=== PATIENT | male | born 1945 | race Caucasian/White ===

== ENCOUNTER 2020-12-14 08:59 | Outpatient (RCR) | payer MEDICARE, SELFPAY | END 2020-12-15 08:00 | disposition home or self-care (01) | LOC: HO.WCC 08:59 | PROVIDERS: PCP Internal Medicine Medical Oncology; Visit Provider Surgery | DX: Z09 Encounter for follow-up examination after completed treatment for conditions other than malignant neoplasm (principal); L00-L99 Diseases of the skin and subcutaneous tissue; F17.290 Nicotine dependence, other tobacco product, uncomplicated; Z79.84 Long term (current) use of oral hypoglycemic drugs | CPT/HCPCS: 99212 ==

== ENCOUNTER 2021-02-13 08:41 | Day surgery (SDC) | payer MEDICARE, SELFPAY ==
[2021-02-07 10:40] VITALS: BMI 37.1
--- NOTE | 2021-02-10 12:33 | MHC.SHP ---
Pre-Procedural Eval Section A Date of Service: 02/10/21 The patient is an INPATIENT: No Changes since office visit: No Cold of Flu in the past 2 weeks, No New Medical Problems, No Changes in Medication and No Patient answered all questions The History & Physical has been completed within 30 days and I have reviewed it.: Yes Section B Chief Complaint: cataract Allergies: Allergies Allergy/AdvReac Type Severity Reaction Status Date / Time No Known Allergies Allergy Verified 02/07/21 10:46 Plan Diagnosis/Plan: Unchanged I have reviewed the history and physical and performed a pertinent physical examination on my patient. No changes have occurred unless specified.
--- NOTE | 2021-02-10 13:19 | P.CONAN_ITS ---
Documented by User: Francine Colunga NP 02/10/21 13:20 HPI - Anesthesia Eval Consult details Narrative: 75yo M for Right Cataract Extraction IOL Insertion PCP cleared No previous cataract on record PMFSH Active Problems Active Problems: All Active Problems (Updated 02/07/21 @ 10:42 by Elizabeth Camargo RN) Elevated prostate specific antigen [PSA] (Acute) Past Medical History Medical History Arthritis COVID-19 vaccine series completed Diabetes Elevated cholesterol Elevated prostate specific antigen [PSA] History of BPH HTN (hypertension) Surgical History Surgical History No significant past surgical history Social History Social History Are you a primary healthcare economics consultant to a significant other at home: No Do you presently have visiting nurse or other home services: No Patient Tobacco Use Status: Current everyday Tobacco user Tobacco use type: Cigar Use of substances other than those prescribed or required for medical reasons: No Have you been hit, kicked, punched, or otherwise hurt by someone within the past year? If so, by whom?: No Are you DNR?: No Advance Directives Information Provided: Yes (as noted above) Advance Directives on File: No Recently lost weight without trying: No Eating poorly because of decreased appetite: No Nutrition Risks: No Nutritional Risk Poor oral hygiene: No (upper full denture) Meds Allergies Allergy/AdvReac Type Severity Reaction Status Date / Time No Known Allergies Allergy Verified 02/07/21 10:46 Home Medications Medication Instructions Recorded Confirmed Last Taken Type amlodipine 10 mg tablet 10 mg PO DAILY 02/07/21 02/07/21 Unknown History aspirin 81 mg tablet,delayed 81 mg PO DAILY 02/07/21 02/07/21 Unknown History release atorvastatin 10 mg tablet 10 mg PO BEDTIME 02/07/21 02/07/21 Unknown History glipizide 10 mg tablet 10 mg PO BID 02/07/21 02/07/21 Unknown History lisinopril 40 mg tablet 40 mg PO DAILY 02/07/21 02/07/21 Unknown History metoprolol tartrate 100 mg tablet 100 mg PO BID 02/07/21 02/07/21 Unknown History Exam Exam Date and Time: February 10, 2021 1319 Height,Weight and Vital Signs: Height 5 ft 10 in Weight 117.48 kg Assessment and Plan Assessment Anesthesia Assessment: Chart Reviewed Documented by User: Julianna Porras MD 02/13/21 10:56 PMFSH Active Problems Active Problems: All Active Problems (Updated 02/07/21 @ 10:42 by Elizabeth Camargo RN) Elevated prostate specific antigen [PSA] (Acute) Increased BMI Past Medical History Medical History Arthritis COVID-19 vaccine series completed Diabetes Elevated cholesterol Elevated prostate specific antigen [PSA] History of BPH HTN (hypertension) Family History Family history of problems with anesthesia: No Surgical History Surgical History No significant past surgical history History of Problems with Anesthesia: No Social History Social History Are you a primary healthcare economics consultant to a significant other at home: No Do you presently have visiting nurse or other home services: No Patient Tobacco Use Status: Current everyday Tobacco user Tobacco use type: Cigar Use of substances other than those prescribed or required for medical reasons: No Have you been hit, kicked, punched, or otherwise hurt by someone within the past year? If so, by whom?: No Are you DNR?: No Advance Directives Information Provided: Yes (as noted above) Advance Directives on File: No Recently lost weight without trying: No Eating poorly because of decreased appetite: No Nutrition Risks: No Nutritional Risk Poor oral hygiene: No (upper full denture) Meds Allergies Allergy/AdvReac Type Severity Reaction Status Date / Time No Known Allergies Allergy Verified 02/07/21 10:46 Home Medications Medication Instructions Recorded Confirmed Last Taken Type amlodipine 10 mg tablet 10 mg PO DAILY 02/07/21 02/07/21 Unknown History aspirin 81 mg tablet,delayed 81 mg PO DAILY 02/07/21 02/07/21 Unknown History release atorvastatin 10 mg tablet 10 mg PO BEDTIME 02/07/21 02/07/21 Unknown History glipizide 10 mg tablet 10 mg PO BID 02/07/21 02/07/21 Unknown History lisinopril 40 mg tablet 40 mg PO DAILY 02/07/21 02/07/21 Unknown History metoprolol tartrate 100 mg tablet 100 mg PO BID 02/07/21 02/07/21 Unknown History Exam Height,Weight and Vital Signs: Height 5 ft 10 in Weight 117.48 kg Vital Signs Temp Pulse Resp BP Pulse Ox 02/13/21 09:48 97.2 F 56 18 126/84 98 Pertinent Lab Results Pertinent Lab Results: Lab Results 02/13/21 Range/Units 09:48 POC Glucose 145 H (60-115) mg/dL Airway Mallampati Class: III TM Dist: >3cm Neck ROM: Full Denture: Upper and Lower Heart: RRR Lungs: Occasional wheeze Assessment and Plan Assessment Anesthesia Assessment: Anesthesia Plan Discussed Final Anesthetic Review Family History of Problems with Anesthesia: No History of Problems with Anesthesia: No NPO: Yes ASA Class: III Final Preanesthetic Review: No Changes in Pt Med Stat, Meds/Allgs Chart Rev iewed, Consent Obtained/Reviewed and Anes Risks/Benef Reviewed Patient Risk: Intermediate Procedure Risk: Low Assessment/Block/Sedation in SS: Assess/Block/Sedation-SS Anesthetic Plan Anesthetic Plan: MAC: Disposition: Standard PACU
[2021-02-13 09:48] VITALS: BP 126/84; PULSE 56; RESP 18; TEMP 36.2; O2SAT 98
[2021-02-13 09:52] LABS: Glucose, Whole Blood 145 mg/dL (60-115)
[2021-02-13] MEDS: Tetracaine HCl/PF 0.5% Oph Sol 4 ML DROPS 1 DROP EYE-RIGHT (09:55)
[2021-02-13] MEDS: Tropicamide 1 % Ophth Sol 3 ML BTL 1 DROP EYE-RIGHT ×3 (09:55→10:00)
[2021-02-13] MEDS: Phenylephrine HCL 2.5% Oph SoL 2 ML BOTTLE 1 DROP EYE-RIGHT ×3 (09:56→10:00)
--- NOTE | 2021-02-13 11:08 | HO.PNOPHT ---
Ophthalmology Procedure Procedure Date of Service: 02/13/21 Ophthalmology Viscoelastic: Healon Duet Dual Pack Pro Ophthalmology Lenses: TECNIS [id number] (22.5) Procedure Notes: PREOPERATIVE DIAGNOSIS: Decreased visual acuity right eye secondary to cataract POSTOPERATIVE DIAGNOSIS: Same PROCEDURE: Right cataract extraction with intraocular lens insertion SURGEON: Anthony Waggoner M.D. ANESTHESIA: Topical/MAC ESTIMATED BLOOD LOSS: None COMPLICATIONS: None After obtaining informed consent, the patient was brought to the operating room suite and placed in the supine position. After adequate sedation per anesthesia, topical drops of Tetracaine were given to the right eye. The eye was then prepped and draped in the usual sterile fashion. The operating room microscope was then positioned over the operative eye and a lid speculum placed. A paracentesis was created. Viscoelastic was then instilled into the anterior chamber. A three plane incision was then created temporally, utilizing a 2.85 mm keratome. Capsulotomy forceps were then utilized to create a circular tear capsulotomy. Hydrodissection and hydrodelineation were carried out until adequate mobilization of the nucleus occurred. Phacoemulsification was then utilized to remove the dense central nucleus followed by removal of the cortical material utilizing the automated aspiration irrigation unit. Viscoelastic was instilled into the posterior capsular bag followed by placement of a posterior chamber intraocular lens without difficulty. The residual Viscoelastic was then removed utilizing the automated IA machine. The wound was checked and found to be watertight. The patient tolerated the procedure well and the lid speculum was removed. Intracameral injection of Vigamox 0.1 mL followed by a subtenon injection of Kenalog-40 0.2 mL were administered. The patient will be seen in the a.m.
[2021-02-13 11:35] VITALS: BP 132/62; PULSE 54; RESP 16; TEMP 36.3; O2SAT 98
== END 2021-02-13 11:46 | disposition home or self-care (01) ==
PROVIDERS: PCP Internal Medicine Medical Oncology; Visit Provider Ophthalmology
PROC: (CPT 66985; principal; 2021-02-13 11:20)
DX: H25.11 Age-related nuclear cataract, right eye (principal); H53.8 Other visual disturbances; I10 Essential (primary) hypertension; E11.9 Type 2 diabetes mellitus without complications; Z79.84 Long term (current) use of oral hypoglycemic drugs; Z79.82 Long term (current) use of aspirin; Z79.899 Other long term (current) drug therapy; F17.290 Nicotine dependence, other tobacco product, uncomplicated
CPT/HCPCS: 66984; 82947; J2250; J3010; J3300; V2632

== ENCOUNTER 2021-03-20 05:59 | Outpatient (REF) | payer MEDICARE, SELFPAY ==
[2021-03-20 06:06] LABS: MANUAL DIFF FLAG NO
[2021-03-20 07:19] LABS: Basophils Percent Auto 0.4 % (0-2); Eosinophils Absolute Auto 0.5 X10*3/uL (0.0-0.4); Eosinophils Percent Auto 5.1 % (0-4); Hematocrit 41.5 % (42-52); Hemoglobin 13.6 g/dl (14.0-18.0); Imm Gran Abs Auto 0.05 X10*3/uL (0.00-0.03); Imm Gran Pct Auto 0.6 % (0.0-0.4); Lymphocytes Absolute Auto 1.4 X10*3/uL (1.2-4.9); Lymphocytes Percent Auto 15.7 % (20-40); Mean Corpuscular HGB Conc 32.8 g/dl (31.0-36.0); Mean Corpuscular Hemoglobin 30.2 pg (27.0-33.0); Mean Corpuscular Volume 92.2 fL (80-98); Mean Platelet Volume 10.7 fL (9.4-12.4); Monocytes Absolute Auto 0.8 X10*3/uL (0.1-1.2); Monocytes Percent Auto 9.1 % (2-11); Neutrophils Absolute Auto 6.2 X10*3/uL (2.0-8.3); Neutrophils Percent Auto 69.1 % (45-73); Platelet Count 246 X10*3/uL (160-400); Red Cell Distribution Width 15.2 % (11.0-16.0); White Blood Count 8.9 X10*3/uL (4.8-10.8)
[2021-03-20 07:47] LABS: Alanine Aminotransferase 11 U/L (0-40); Alkaline Phosphatase 82 U/L (39-117); Anion Gap 10 (12-20); Aspartate Amino Transferase 15 U/L (5-37); Bilirubin Total 0.4 mg/dL (0.0-1.0); Blood Urea Nitrogen 20 mg/dL (9-16); Carbon Dioxide 28 mmol/L (22-29); Chloride 105 mmol/L (96-108); Cholesterol 133 mg/dL; Estimated Glomerular Filt Rate > 60; Glucose Random 157 mg/dL (60-115); HDL Cholesterol 39 mg/dL; LDL Cholesterol Calculated 83 mg/dl; Potassium 4.4 mmol/L (3.3-5.1); Sodium 139 mmol/L (135-145); Total Protein 6.6 g/dL (6.5-8.0); Triglycerides 58 mg/dL
[2021-03-20 07:49] LABS: Estimated Average Glucose 169 mg/dL; Hemoglobin A1c % 7.5 %
[2021-03-20 08:21] LABS: Prostate Specific Antigen 13.47 ng/mL (<0.05-4.0)
== END 2021-03-20 06:00 | disposition home or self-care (01) ==
LOC: HO.LAB 05:59
PROVIDERS: PCP Internal Medicine Medical Oncology; Visit Provider Internal Medicine Medical Oncology
DX: Z12.5 Encounter for screening for malignant neoplasm of prostate (principal); I10 Essential (primary) hypertension; E11.9 Type 2 diabetes mellitus without complications; E78.5 Hyperlipidemia, unspecified; R35.1 Nocturia
CPT/HCPCS: 36415; 80053; 80061; 83036; 84153; 85025

== ENCOUNTER 2021-05-02 06:03 | Outpatient (REF) | payer MEDICARE, SELFPAY ==
[2021-05-02 08:44] LABS: Prostate Specific Antigen 14.95 ng/mL (<0.05-4.0)
== END 2021-05-02 06:04 | disposition home or self-care (01) ==
LOC: HO.LAB 06:03
PROVIDERS: PCP Internal Medicine Medical Oncology; Visit Provider Urology
DX: Z12.5 Encounter for screening for malignant neoplasm of prostate (principal); R97.20 Elevated prostate specific antigen [PSA]
CPT/HCPCS: 36415; 84153

== ENCOUNTER → 2021-05-12 11:41 | Outpatient (BNVA) | payer MEDICARE, SELFPAY | PROVIDERS: PCP Internal Medicine Medical Oncology; Visit Provider Urology | DX: N40.1 Benign prostatic hyperplasia with lower urinary tract symptoms (principal); N13.8 Other obstructive and reflux uropathy; R35.1 Nocturia; R97.20 Elevated prostate specific antigen [PSA] | CPT/HCPCS: 99212 ==

== ENCOUNTER 2021-06-08 16:56 | Inpatient (IN) | payer MEDICARE, SELFPAY ==
[2021-06-08] VITALS (10 sets, daily range): BP systolic 99–131; BP diastolic 40–80; PULSE 80–153; RESP 16–34; TEMP 36.9–38.6; O2SAT 93–95; BMI 31.1
--- NOTE | ~2021-06-08 | XR_ITS ---
EXAMINATION: PORTABLE CHEST 1 VIEW CLINICAL INFORMATION: OG tube placement . COMPARISON: 06/11/2019. TECHNIQUE: Portable frontal view of the chest was obtained. FINDINGS: Endotracheal tube tip approximately 5 cm both selene. Gastric tube tip and side-port overlying the left upper quadrant stomach. Small layering bilateral pleural effusions seen with bibasilar consolidation/atelectasis. No overt edema or pneumothorax. Cardiac silhouette within normal limits for size with vascular calcification in aorta. Degenerative changes in the spine. XR/XR chest 1V IMPRESSION: Tubes and lines as described. Small bilateral pleural effusions seen with associated basilar atelectasis similar to the prior study.
--- NOTE | ~2021-06-08 | XR_ITS ---
EXAMINATION: XR CHEST CLINICAL INFORMATION: Endotracheal tube and line placement COMPARISON: Chest x-ray 06/08/2021 TECHNIQUE: Frontal view of the chest was obtained. FINDINGS: Interval insertion of endotracheal tube which terminates approximately 6.3 cm above the level the selene. Left-sided jugular catheter is noted with tip terminating at the junction of the left brachiocephalic vein and SVC. The cardiac silhouette is mildly enlarged. Hypoinflated lungs. Interval worsening in left basilar airspace disease. No large pleural effusion identified. No pneumothorax. XR/XR chest 1V IMPRESSION: -Endotracheal tube in expected position. -Left-sided jugular catheter may require mild advancement. Clinical correlation recommended. -Interval worsening in left basilar airspace disease.
--- NOTE | ~2021-06-08 | IR_ITS ---
PROCEDURE: IR INSERTION OF TUNNEL CATHETER CLINICAL INFORMATION: Bacteremia. Needs long-term IV antibiotics. COMPARISON: None TECHNIQUE: Following explaining procedure, benefits and risks of a tunneled catheter to patient's spouse, a phone consent was obtained. Patient was placed supine on fluoroscopy table and preliminary ultrasound imaging was obtained. An optimal site was selected along the right anterolateral neck and marked. The marked site was cleaned and draped in the usual sterile manner. 1% lidocaine was inserted at puncture site. Under sterile ultrasound guidance, a single wall needle was advanced from the marked site and right jugular vein was punctured. After obtaining venous return a thin guidewire was advanced through the needle and placed in SVC and needle withdrawn. A 5-Moroccan dilator sheath was inserted over the guidewire and anchored to patient's drape with a hemostat. Approximately 1 gauze length anterior and lateral to the neck incision, 1% lidocaine was injected at the right anterior chest wall. A small skin incision was performed. 1% lidocaine with epinephrine was then injected subcutaneously from the right anterior chest wall incision to the right neck incision. A tunneler attached to a Plaza catheter was then tunneled blindly from the anterior neck chest wall incision to the neck incision and the tunneler was pulled making sure the catheter cuff was placed in the subcutaneous space. The catheter was sized to appropriate length. The 5-Moroccan dilator and the guidewire was removed and a long 0.035 J-wire was advanced and placed in IVC under fluoroscopy guidance. The tunneled Plaza catheter was then inserted through the peel-away sheath after removing the dilator and the guidewire. The peel-away sheath was removed as the catheter was held in position. Position of the catheter was then confirmed under fluoroscopy. 3-0 absorbable sutures were placed along the right anterior chest wall. The catheter was flushed with saline followed by heparin. A single image was obtained for documentation. All elements of maximal sterile barrier technique followed including use of cap, mask, sterile gown, sterile gloves, a sterile full body drape and hand hygiene. Also followed skin preparation with 2% chlorhexidine for cutaneous antisepsis, and sterile ultrasound preparation with sterile gel and probe cover when applicable. Conscious sedation with fentanyl and Versed was given during exam and patient monitored for 42 minutes. Patient was monitored by the IR nurse and the referring physician during the sedation time. Patient tolerated the procedure extremely well. FINDINGS: On initial ultrasound images, there is a widely patent jugular vein. Approximately 24 cm long tunneled Plaza catheter was placed in the SVC. There is significant backward flow of IVC blood; hence, contrast was injected to confirm the position of the catheter within the SVC which was confirmed. Backward high flow through the catheter is likely secondary to right ventricular failure or strain. This was communicated to the referring physician by phone, Dr. Noland. IR/IR cvc insert central tunnel IMPRESSION: Successful ultrasound and fluoroscopy-guided placement of a 24-cm long 5-Moroccan Plaza catheter. There is significant retrograde flow seen through the needle and catheter likely secondary to right heart failure or ventricular strain. Findings were communicated to Dr. Noland, the referring physician. Fluoroscopy Time: 2 minutes. Dose Area Product: [id number] cGy-cm2. Sedation Time: 42 minutes.
--- NOTE | ~2021-06-08 | CT_ITS ---
EXAMINATION: CT CHEST WITHOUT CONTRAST CLINICAL INFORMATION: Amiodarone toxicity. Hypoxia. COMPARISON: Previous chest x-rays most recent from yesterday TECHNIQUE: Multidetector volumetric CT imaging of the chest was done. Axial MIP volume rendering provided. Sagittal and coronal reformatted images were obtained. This CT examination was performed using dose optimization techniques as appropriate, variously including the following: *Automated exposure control *Adjustment of mA and/or kV according to patient size (this includes techniques or standardized protocols for targeted exams where dose is matched to indication/reason for exam; i.e. extremities or head) *Use of iterative reconstruction technique DLP: 3 2 mGy-cm FINDINGS: LUNGS: There is patchy bilateral diffuse airspace disease with air bronchograms. This is seen throughout the lungs. There may be some sparing of the lung periphery. There is denser atelectasis and consolidation in both lower lobes. Some of this may represent compressive atelectasis related to the adjacent bilateral pleural effusions MEDIASTINUM: The heart is enlarged. There is coronary artery and aortic valve calcification. There is no pericardial effusion. The thoracic aorta is normal in caliber. The visualized thyroid gland is unremarkable. There is a left subclavian line with tip projecting over the proximal SVC. PLEURA: There are moderate bilateral pleural effusions. AXILLA: No enlarged axillary lymph nodes or chest wall mass. UPPER ABDOMEN: 1.6 cm low-attenuation lesion in the lateral segment of the left lobe of the liver axial image 52 series 3. The spleen is small. The attenuation of the liver and spleen do not appear increased compared to the pancreas and kidneys left kidney. The right diaphragmatic for appears prominent. This area measures 2.5 x 3.5 cm for example axial image 62 series 3. It is uncertain whether this could be related to lymphadenopathy. OSSEOUS STRUCTURES: There are severe degenerative changes of the spine. CT/CT chest wo con IMPRESSION: Diffuse multilobar airspace disease. Moderate-sized bilateral pleural effusions. Chest CT appearance is nonspecific but would be compatible with amiodarone toxicity. Enlarged heart. Enlarged right diaphragmatic crura versus lymphadenopathy. Fleischner guidelines were followed.
--- NOTE | ~2021-06-08 | NM_ITS ---
EXAMINATION: NM LUNG IMAGE PERFUSION CLINICAL INFORMATION: A. fib/CHF. Dyspnea and generalized weakness. Rule out pulmonary embolism. COMPARISON: Previous chest x-ray from yesterday TECHNIQUE: Patient was administered 4 mCi of technetium 99m labeled MAA and perfusion imaging in the anterior, posterior, AYALA and LPO, and right lateral and left lateral projections were obtained. Additional SYRIAC and RPO images were not obtained due to difficulty with the equipment. FINDINGS: No segmental perfusion defect is seen. This is a low probability scan for pulmonary embolism. NM/NM pul perfusion IMPRESSION: Low probability scan for pulmonary embolism.
--- NOTE | ~2021-06-08 | XR_ITS ---
EXAMINATION: XR CHEST CLINICAL INFORMATION: Hemoptysis. COMPARISON: Chest x-ray 06/13/2021 TECHNIQUE: Frontal portable view of the chest was obtained. 4:56 PM FINDINGS: Tubes and lines: 1. Endotracheal tube catheter tip 5 cm above the selene. 2. Gastric catheter passes below diaphragm. Catheter tip is below lower margin of film. 3. Left IJ catheter tip in the superior vena cava origin at the midline superior mediastinum. There is persistent opacity both lung bases due to airspace disease/atelectasis and bilateral pleural effusions. No change since prior study 12/11/2021. XR/XR chest 1V IMPRESSION: Persistent bibasilar density due to consolidation/atelectasis and bilateral pleural effusions. No significant change since 06/13/2021.
--- NOTE | ~2021-06-08 | XR_ITS ---
EXAMINATION: XR CHEST CLINICAL INFORMATION: Post central line placement and intubation COMPARISON: Previous chest x-rays most recent 06/26/2021 TECHNIQUE: Frontal view of the chest was obtained. FINDINGS: There is a new endotracheal tube with tip 2.3 cm above the selene. There is a new nasogastric tube. This projects over the proximal stomach. The tip is not seen. There is a new left subclavian line with tip projecting over the SVC. The cardiac silhouette is enlarged. There is bilateral perihilar airspace disease and small bilateral pleural effusions. These findings are new or increased compared to previous exam. Differential would include CHF/pulmonary edema and pneumonia. There is no pneumothorax. There are degenerative changes of the spine. XR/XR chest 1V IMPRESSION: Endotracheal tube tip 2.3 cm above the selene. Left subclavian line tip projects over SVC. Nasogastric tube projects over the proximal stomach. The tip is not seen. No pneumothorax. Probable CHF. Differential would include new bilateral perihilar pneumonia.
--- NOTE | ~2021-06-08 | US_ITS ---
EXAMINATION: US RETROPERITONEAL LIMITED (RENAL ONLY) CLINICAL INFORMATION: Acute kidney insufficiency COMPARISON: None TECHNIQUE: Ultrasound of the kidneys was performed FINDINGS: RIGHT KIDNEY: 13.0 x 6.7 x 7.5 cm (SAG x AP x TRV). The kidney is normal in size, contour, and echogenicity. Renal cortical thickness is normal. No calculi . In the midpole of the right kidney there is a complex large 3.6 x 3.4 x 3.3 cm mass present with both cystic and solid areas. No hydronephrosis. LEFT KIDNEY: 14.1 x 6.9 x 7.0 cm (SAG x AP x TRV). The kidney is normal in size, contour, and echogenicity. Renal cortical thickness is normal. No calculi or focal parenchymal lesions. No hydronephrosis. US/US renal BI IMPRESSION: A cause for the patient's acute renal insufficiency has not been found. Incidental note made of a complex 3.6 cm right renal mass. Given the patient's renal failure, pre and postcontrast enhanced CT is probably not a consideration. Would recommend pre and postcontrast renal MRI for further evaluation. Newer gadolinium contrast agents are not associated with an increased risk of systemic nephrogenic fibrosis.
--- NOTE | ~2021-06-08 | XR_ITS ---
EXAMINATION: XR CHEST CLINICAL INFORMATION: Follow-up CHF COMPARISON: Previous chest x-ray 06/17/2020 TECHNIQUE: Frontal view of the chest was obtained. FINDINGS: The cardiac silhouette is enlarged stable. There is bilateral perihilar and left lower lobe airspace disease and small pleural effusions, left greater than right. This is similar to 06/17/2021. There is density in the left upper lobe probably related to left first rib costochondral cartilage. The lungs are otherwise clear. There are degenerative changes of the spine. XR/XR chest 1V IMPRESSION: Enlarged cardiac silhouette. Bilateral perihilar and left lower lobe airspace disease and small left pleural effusion left greater than right. Findings are again questionable for CHF. This is similar to 06/17/2021 exam.
--- NOTE | ~2021-06-08 | XR_ITS ---
EXAMINATION: XR CHEST CLINICAL INFORMATION: Respiratory failure. Rule out pulmonary edema. COMPARISON: Chest x-ray 06/29/2021. TECHNIQUE: Frontal view of the chest was obtained. FINDINGS: The endotracheal tube and enteric tube have been removed. There is no change in left subclavian central venous line. The heart size enlarged. Bilateral airspace opacities are stable. There is moderate spondylosis dorsal spine. No suspicion for pleural effusion or pneumothorax. XR/XR chest 1V IMPRESSION: Endotracheal tube and enteric tube have been removed. Bilateral patchy airspace opacities are stable and unchanged.
--- NOTE | ~2021-06-08 | XR_ITS ---
EXAMINATION: XR CHEST CLINICAL INFORMATION: Follow-up infiltrates COMPARISON: Previous chest x-ray most recent 07/02/2021 TECHNIQUE: Frontal view of the chest was obtained. FINDINGS: The cardiac silhouette is enlarged but stable. There is a left subclavian line with tip projecting over the SVC. There are bilateral infiltrates not appreciably changed from most recent exam 07/02/2021. There is blunting of the left lateral costophrenic angle questionable for a small left pleural effusion. There is no right pleural effusion. There is no pneumothorax. There are degenerative changes of the spine. XR/XR chest 1V IMPRESSION: Stable enlargement of the cardiac silhouette. No change in the bilateral infiltrates from 07/02/2021 exam. Question small left pleural effusion.
--- NOTE | ~2021-06-08 | XR_ITS ---
EXAMINATION: PORTABLE CHEST 1 VIEW CLINICAL INFORMATION: sob ?chf . COMPARISON: 05/02/2007. TECHNIQUE: Portable frontal view of the chest was obtained. FINDINGS: Lungs are mildly hypoexpanded. Increased markings at the bases reflecting a component of atelectasis although basilar infiltrate would be difficult to exclude. There is mild central vascular prominence but no overt edema with this appearance. Cardiac mediastinal silhouettes within normal limits for size for the technique. Degenerative changes in the spine and shoulders. XR/XR chest 1V IMPRESSION: Mildly hypoexpanded with basilar markings more likely reflecting a component of atelectasis. Infiltrates would be possible but less likely. No overt edema.
--- NOTE | ~2021-06-08 | IR_ITS ---
PROCEDURE: IR INSERTION OF TUNNEL CATHETER CLINICAL INFORMATION: Bacteremia. Needs long-term IV antibiotics. COMPARISON: None TECHNIQUE: Following explaining procedure, benefits and risks of a tunneled catheter to patient's spouse, a phone consent was obtained. Patient was placed supine on fluoroscopy table and preliminary ultrasound imaging was obtained. An optimal site was selected along the right anterolateral neck and marked. The marked site was cleaned and draped in the usual sterile manner. 1% lidocaine was inserted at puncture site. Under sterile ultrasound guidance, a single wall needle was advanced from the marked site and right jugular vein was punctured. After obtaining venous return a thin guidewire was advanced through the needle and placed in SVC and needle withdrawn. A 5-Nauruan dilator sheath was inserted over the guidewire and anchored to patient's drape with a hemostat. Approximately 1 gauze length anterior and lateral to the neck incision, 1% lidocaine was injected at the right anterior chest wall. A small skin incision was performed. 1% lidocaine with epinephrine was then injected subcutaneously from the right anterior chest wall incision to the right neck incision. A tunneler attached to a Plaza catheter was then tunneled blindly from the anterior neck chest wall incision to the neck incision and the tunneler was pulled making sure the catheter cuff was placed in the subcutaneous space. The catheter was sized to appropriate length. The 5-Nauruan dilator and the guidewire was removed and a long 0.035 J-wire was advanced and placed in IVC under fluoroscopy guidance. The tunneled Plaza catheter was then inserted through the peel-away sheath after removing the dilator and the guidewire. The peel-away sheath was removed as the catheter was held in position. Position of the catheter was then confirmed under fluoroscopy. 3-0 absorbable sutures were placed along the right anterior chest wall. The catheter was flushed with saline followed by heparin. A single image was obtained for documentation. All elements of maximal sterile barrier technique followed including use of cap, mask, sterile gown, sterile gloves, a sterile full body drape and hand hygiene. Also followed skin preparation with 2% chlorhexidine for cutaneous antisepsis, and sterile ultrasound preparation with sterile gel and probe cover when applicable. Conscious sedation with fentanyl and Versed was given during exam and patient monitored for 42 minutes. Patient was monitored by the IR nurse and the referring physician during the sedation time. Patient tolerated the procedure extremely well. FINDINGS: On initial ultrasound images, there is a widely patent jugular vein. Approximately 24 cm long tunneled Plaza catheter was placed in the SVC. There is significant backward flow of IVC blood; hence, contrast was injected to confirm the position of the catheter within the SVC which was confirmed. Backward high flow through the catheter is likely secondary to right ventricular failure or strain. This was communicated to the referring physician by phone, Dr. Noland. IR/IR us guide venous access IMPRESSION: Successful ultrasound and fluoroscopy-guided placement of a 24-cm long 5-Nauruan Plaza catheter. There is significant retrograde flow seen through the needle and catheter likely secondary to right heart failure or ventricular strain. Findings were communicated to Dr. Noland, the referring physician. Fluoroscopy Time: 2 minutes. Dose Area Product: [id number] cGy-cm2. Sedation Time: 42 minutes.
--- NOTE | 2021-06-08 17:17 | ECG_ITS ---
Test Reason : weakness/falls Blood Pressure : / mmHG Vent. Rate : 152 BPM Atrial Rate : 000 BPM P-R Int : 000 ms QRS Dur : 102 ms QT Int : 312 ms P-R-T Axes : 000 021 161 degrees QTc Int : 496 ms Atrial fibrillation with rapid ventricular response Nonspecific ST and T wave abnormality Abnormal ECG When compared with ECG of 04-MAY-2007 06:52, Atrial fibrillation has replaced Sinus rhythm Vent. rate has increased BY [address] now depressed in Anterolateral leads Nonspecific T wave abnormality now evident in Lateral leads Referred By: Generic ED Physician Electronically Signed By:NATALIIA ARAIZA MD
[2021-06-08 17:23] LABS: Glucose, Whole Blood 67 mg/dL (60-115)
--- NOTE | 2021-06-08 17:23 | PC.NURSE ---
given orange juice for POC 67. is alert. awaits a bed and triage.
--- NOTE | 2021-06-08 17:31 | ED_ITS ---
HPI - General Adult General Chief complaint: Dyspnea Stated complaint: INCREASE BODY ACHES, WEAKNESS, FALLS Time Seen by Provider: 06/08/21 17:16 Source: patient Mode of arrival: ambulatory Limitations: no limitations History of Present Illness HPI narrative: Patient with no history of atrial fibrillation/CHF comes to the ER for last 4 or 5 weeks of weakness exertional dyspnea feels no strength when he walks. Patient been vaccinated against COVID including a booster dose denies any cough or fever. Patient also does have chronic back pain no acute increase in the back problems no fall no headache Related Data Home Medications Medication Instructions Recorded Confirmed amlodipine 10 mg tablet 10 mg PO DAILY 02/07/21 06/08/21 aspirin 81 mg tablet,delayed 81 mg PO DAILY 02/07/21 06/08/21 release atorvastatin 10 mg tablet 10 mg PO BEDTIME 02/07/21 06/08/21 glipizide 10 mg tablet 10 mg PO BID 02/07/21 06/08/21 lisinopril 40 mg tablet 40 mg PO DAILY 02/07/21 06/08/21 metoprolol tartrate 100 mg tablet 100 mg PO BID 02/07/21 06/08/21 pioglitazone 30 mg tablet 1 tab PO DAILY 06/08/21 06/08/21 triamcinolone acetonide 0.1 % 1 applic TOPICAL BID-TID 06/08/21 06/08/21 topical cream Previous Rx's Medication Instructions Recorded tamsulosin 0.4 mg capsule 0.4 mg PO BEDTIME 90 Days #90 cap 04/10/21 finasteride 5 mg tablet 5 mg PO DAILY 90 Days #90 tab 05/12/21 Allergies Allergy/AdvReac Type Severity Reaction Status Date / Time No Known Allergies Allergy Verified 06/08/21 18:52 Review of Systems Review of Systems: Yes all other systems are reviewed and are negative PMFSH Past Medical History Medical History Arthritis COVID-19 vaccine series completed Diabetes Elevated cholesterol Elevated prostate specific antigen [PSA] History of BPH HTN (hypertension) Surgical History No significant past surgical history Social History Social History Are you a primary inspector health care facilities to a significant other at home: No Do you presently have visiting nurse or other home services: No Patient Tobacco Use Status: Current everyday Tobacco user Tobacco use type: Cigar Advance Directives: No Advance Directives Information Provided: No Physical Exam Vital Signs: Vital Signs: Last Vital Signs Temp 98.5 F 06/08/21 18:26 Pulse 143 H 06/08/21 21:06 Resp 18 06/08/21 21:06 BP 107/48 L 06/08/21 20:39 Pulse Ox 94 06/08/21 20:39 BMI result Body Mass Index 31.1 Appearance: Alert. Oriented X3. No acute distress. Eyes: No pallor or icterus ENT: Pharynx normal. Oral Mucosa moist Neck: Normal inspection. Neck supple. CVS: Irregularly irregular tachycardia no murmur or gallop Pulses normal. Respiratory: No respiratory distress. Equal air entry bilateral, bilateral wheezing occasional basal rales Abdomen: Soft and nontender. Bowel sounds are present, no mass palpable, no CVA tenderness Skin: Skin warm and dry. Normal skin color. Normal skin turgor. Extremities: No lower extremity edema. No calf tenderness Neuro: Oriented X 3. No motor deficit. No sensory deficit.No cerebellar signs , cranial nerves II-XII intact Medical Decision Making MDM Narrative Medical decision making narrative: Patient with significant abnormal labs show creatinine of 2.7 which is acutely increased from 03/23 clinically looks like prerenal, also patient has elevated D-dimer will give him Lovenox plan for V/Q scan in morning patient received IV Cardizem for new onset atrial fibrillation and responded to it heart rate at this time is between 100 and 110 will give him p.o. Cardizem plan to admit patient did not really come positive with COVID although received 3 doses of COVID vaccine no significant hypoxia notice Lab Data Lab results reviewed: Yes I reviewed the patient's lab results. Result diagrams: 06/08/21 18:09 06/08/21 18:09 Labs: Lab Results 06/08/21 06/08/21 06/08/21 Range/Units 17:17 18:09 18:09 WBC 19.8 H (4.8-10.8) X10*3/uL RBC 4.34 L (4.60-5.80) X10*6/uL Hgb 13.1 L (14.0-18.0) g/dl Hct 37.9 L (42.0-52.0) % MCV 87.3 (80.0-98.0) fL MCH 30.2 (27.0-33.0) pg MCHC 34.6 (31.0-36.0) g/dl RDW 15.0 (11.0-16.0) % Plt Count 265 (160-400) X10*3/uL MPV 10.6 (9.4-12.4) fL Immature Gran % (Auto) 2.0 H (0.0-0.4) % Neut % (Auto) 90.3 H (45-73) % Lymph % (Auto) 3.1 L (20-40) % [place] % (Auto) 4.2 (2-11) % Eos % (Auto) 0.2 (0-4) % Baso % (Auto) 0.2 (0-2) % Lymph # (Auto) 0.6 L (1.2-4.9) X10*3/uL [place] # (Auto) 0.8 (0.1-1.2) X10*3/uL Eos # (Auto) 0.0 (0.0-0.4) X10*3/uL Baso # (Auto) 0.0 (0.0-0.2) X10*3/uL Abs Immat Gran (auto) 0.40 H (0.00-0.03) X10*3/uL Absolute Neuts (auto) 17.9 H (2.0-8.3) x10*3/uL Absolute Nucleated RBC 0.000 (0.0-0.012) X10*3/uL Nucleated RBC % (auto) 0.0 (0.0-0.2) /100WBC Smear Tech's Comments VERIFIED PT 12.4 (9.9-13.0) SEC INR 1.1 (0.9-1.1) APTT 26.0 (24.1-38.0) SEC D-Dimer High Sensitivty 3214 NG/ML Sodium (135-145) mmol/L Potassium (3.3-5.1) mmol/L Chloride (96-108) mmol/L Carbon Dioxide (22-29) mmol/L Anion Gap (12-20) BUN (9-16) mg/dL Creatinine (0.5-1.4) mg/dL Estim Creat Clear Calc Estimated GFR POC Glucose 67 (60-115) mg/dL Random Glucose (60-115) mg/dL Calcium (8.4-10.2) mg/dL Magnesium (1.6-2.6) mg/dL Troponin I High Sens (<3.5-35.0) ng/L B-Natriuretic Peptide (<100) pg/mL COVID-19 ([facility]) (Negative) COVID-19 Clin Com 06/08/21 06/08/21 06/08/21 Range/Units 18:09 18:09 18:09 WBC (4.8-10.8) X10*3/uL RBC (4.60-5.80) X10*6/uL Hgb (14.0-18.0) g/dl Hct (42.0-52.0) % MCV (80.0-98.0) fL MCH (27.0-33.0) pg MCHC (31.0-36.0) g/dl RDW (11.0-16.0) % Plt Count (160-400) X10*3/uL MPV (9.4-12.4) fL Immature Gran % (Auto) (0.0-0.4) % Neut % (Auto) (45-73) % Lymph % (Auto) (20-40) % [place] % (Auto) (2-11) % Eos % (Auto) (0-4) % Baso % (Auto) (0-2) % Lymph # (Auto) (1.2-4.9) X10*3/uL [place] # (Auto) (0.1-1.2) X10*3/uL Eos # (Auto) (0.0-0.4) X10*3/uL Baso # (Auto) (0.0-0.2) X10*3/uL Abs Immat Gran (auto) (0.00-0.03) X10*3/uL Absolute Neuts (auto) (2.0-8.3) x10*3/uL Absolute Nucleated RBC (0.0-0.012) X10*3/uL Nucleated RBC % (auto) (0.0-0.2) /100WBC Smear Tech's Comments PT (9.9-13.0) SEC INR (0.9-1.1) APTT (24.1-38.0) SEC D-Dimer High Sensitivty NG/ML Sodium 130 L (135-145) mmol/L Potassium 4.2 (3.3-5.1) mmol/L Chloride 93 L (96-108) mmol/L Carbon Dioxide 21 L (22-29) mmol/L Anion Gap 20 (12-20) BUN 91 H (9-16) mg/dL Creatinine 2.76 H (0.5-1.4) mg/dL Estim Creat Clear Calc 28.8 Estimated GFR 23 POC Glucose (60-115) mg/dL Random Glucose 67 D (60-115) mg/dL Calcium 8.2 L D (8.4-10.2) mg/dL Magnesium 3.6 H* (1.6-2.6) mg/dL Troponin I High Sens 46.0 H (<3.5-35.0) ng/L B-Natriuretic Peptide 303 H (<100) pg/mL COVID-19 ([facility]) Positive A (Negative) COVID-19 Clin Com See Note ECG Data Attestation: I personally reviewed and interpreted this ECG as follows: Interpretation: Atrial fibrillation with heart rate 152 beats per minute non specific ST T wave changes no acute ischemia Critical Care Time Critical Care Time Critical Care Time: Yes Total Critical Care Time: 65 Attestation: I spent 65 minutes of critical care, with interventions, assessments, speaking to patient, consultants, and family. Discharge Plan Discharge Clinical Impression: Atrial fibrillation with rapid ventricular response, COVID-19, Weakness Acute renal failure Qualifiers: Acute renal failure type: unspecified Qualified Code(s): N17.9 - Acute kidney failure, unspecified Patient Disposition: Admitted As Inpatient
[2021-06-08] MEDS: dilTIAZem HCL 50 MG/10 ML VIAL 10 MG IVPUSH ×3 (18:11→23:28)
[2021-06-08 18:35] LABS: Basophils Percent Auto 0.2 % (0-2); Eosinophils Percent Auto 0.2 % (0-4); Hematocrit 37.9 % (42.0-52.0); Hemoglobin 13.1 g/dl (14.0-18.0); Lymphocytes Absolute Auto 0.6 X10*3/uL (1.2-4.9); Lymphocytes Percent Auto 3.1 % (20-40); MANUAL DIFF FLAG SCAN; Mean Corpuscular HGB Conc 34.6 g/dl (31.0-36.0); Mean Corpuscular Hemoglobin 30.2 pg (27.0-33.0); Mean Corpuscular Volume 87.3 fL (80.0-98.0); Mean Platelet Volume 10.6 fL (9.4-12.4); Monocytes Absolute Auto 0.8 X10*3/uL (0.1-1.2); Monocytes Percent Auto 4.2 % (2-11); Neutrophils Absolute Auto 17.9 x10*3/uL (2.0-8.3); Neutrophils Percent Auto 90.3 % (45-73); Platelet Count 265 X10*3/uL (160-400); Red Blood Count 4.34 X10*6/uL (4.60-5.80); SCAN SMEAR FLAG 1; White Blood Count 19.8 X10*3/uL (4.8-10.8)
[2021-06-08 18:54] LABS: INTERNATIONAL NORM RATIO 1.1 (0.9-1.1); Prothrombin Time 12.4 SEC (9.9-13.0)
[2021-06-08 18:55] LABS: B Type Natriuretic Peptide 303 pg/mL (<100)
[2021-06-08 19:18] LABS: COVID-19 Test Positive (Negative); IDNOW Serial# 9DD0AD1C
[2021-06-08 19:19] LABS: SLIDE REVIEW VERIFIED
[2021-06-08 19:30] LABS: Anion Gap 20 (12-20); Blood Urea Nitrogen 91 mg/dL (9-16); Calcium 8.2 mg/dL (8.4-10.2); Carbon Dioxide 21 mmol/L (22-29); Chloride 93 mmol/L (96-108); Creatinine Clr Calc Pharmacy 28.8; Estimated Glomerular Filt Rate 23; Glucose Random 67 mg/dL (60-115); Magnesium 3.6 mg/dL (1.6-2.6); Potassium 4.2 mmol/L (3.3-5.1); Sodium 130 mmol/L (135-145)
[2021-06-08] MEDS: Metoprolol Tartrate 5 MG/5 ML VIAL IVPUSH (19:30)
--- NOTE | 2021-06-08 19:31 | PC.NURSE ---
elder at bedside during reassessment of VS. pt 99/51, hr 140. per elder, hang 1L ns and give 5mg metoprolol.
--- NOTE | 2021-06-08 19:45 | PHA.MEDREC ---
Pharmacy Consult ? Medication Reconciliation Pharmacy has completed the medication reconciliation.
[2021-06-08] MEDS: 0.9 % Sodium Chloride 1,000 ML 999 ML IV (20:07)
[2021-06-08] MEDS: dilTIAZem HCL 30 MG TABLET 120 MG PO (20:39)
[2021-06-08 20:48] LABS: D Dimer High Sensitivity 3214 NG/ML
[2021-06-08] MEDS: Albuterol/Iprat 2.5/0.5MG 3 ML AMPUL.NEB INHALE (21:04)
--- NOTE | 2021-06-08 21:40 | PC.NURSE ---
awaiting lovenox from pharmacy
[2021-06-08] MEDS: Enoxaparin Sodium 120 MG/0.8 ML SYRINGE 110 MG SUBCUT (22:31)
--- NOTE | 2021-06-08 23:06 | P.HPHOSP_ITS ---
History of Present Illness Date of Service: 06/08/21 Chief Complaint: Gen Weakness 76-year-old male with a past medical history of hypertension, hyperlipidemia, diabetes, BPH, arthritis presented the hospital today with a chief complaint of generalized weakness. Patient reports that for the past few weeks he has been having generalized weakness, not feeling well; complains of shortness of breath and dyspnea on exertion; mentions that his symptoms have been gradually worsening; reports that he has no good appetite and has been not eating in good enough; denies any falls or trauma. Denies any chest pain palpitations lightheadedness dizziness. Complains of cough but no sputum production. Denies any numbness tingling or focal weakness. Reports he has been weak in his legs; Denies any back pain. Patient reports that been vaccinated including a booster dose. Review of all other systems is negative except mentioned above ER course: Per ER team patient on presentation noted to be saturating 94%; blood pressure 107/48; bilateral rales and wheezing noted-received DuoNeb; noted to have new onset AFib with rapid ventricular response-given diltiazem 120 p.o., diltiazem IV push x2, metoprolol IV push x1; patient still continued to be having tachycardia with heart rate in 140s; COVID-19 positive; chest x-ray showed infiltrates-troponins indeterminate; on labs also noted to have elevated renal function to 2.7 creatinine from baseline of 1.1. Patient received 1 L of normal saline IV fluids. Admitted for further management. [facility] Medical History (Updated 06/10/21 @ 10:40 by Shivani Priest MD) Arthritis Bacteremia due to Gram-positive bacteria COVID-19 vaccine series completed Diabetes Elevated cholesterol Elevated prostate specific antigen [PSA] History of BPH HTN (hypertension) Pertinent family history: reviewed Surgical History No significant past surgical history Social History Household Members: Spouse Housing: Apartment Are you a primary healthcare network consultant to a significant other at home: No Do you presently have visiting nurse or other home services: No Alcohol intake: current Alcohol intake frequency: a few times a month Patient Tobacco Use Status: Former Tobacco user Tobacco use type: Cigar service: No Current occupational status: retired [employer] Allergies Allergy/AdvReac Type Severity Reaction Status Date / Time No Known Allergies Allergy Verified 06/08/21 18:52 Active Medications: Current Medications Aspirin (Aspirin Enteric Coated 81 Mg Tablet.Dr) 81 mg PO DAILY [facility] Atorvastatin Calcium (Atorvastatin Calcium 10 Mg Tablet) 10 mg PO BEDTIME [facility] Dexamethasone Sodium Phosphate (Dexamethasone Sod Phosphate 4 Mg/Ml Vial) 6 mg IVPUSH DAILY [facility] Dextrose (Dextrose 50 % 25 Gm/50 Ml Vial) 25 gm IVPUSH Q15M PRN; Protocol PRN Reason: per Hypoglycemia Standing Ord. Enoxaparin Sodium (Enoxaparin Sodium 60 Mg/0.6 Ml Syringe) 105 mg 1 mg/kg (105 mg) SUBCUT Q12H [facility] Finasteride (Finasteride 5 Mg Tablet) 5 mg PO DAILY [facility] Glucose (Glucose Gel 15 Gm Gel..Gram.) 15 gm PO Q15M PRN; Protocol PRN Reason: per Hypoglycemia Standing Ord. Diltiazem HCl 125 mg/ Sodium (Chloride) 125 mls @ 0 mls/hr IVCONT .Q0M [facility]; Protocol Sodium Chloride (Ns) 500 mls @ 250 mls/hr IV .Q2H [facility] Stop: 06/09/21 00:49 Diltiazem HCl 125 mg/ Sodium (Chloride) 125 mls @ 0 mls/hr IVCONT .Q0M [facility]; Protocol Ceftriaxone Sodium 1 gm/ (Sodium Chloride) 50 mls @ 100 mls/hr IV Q24H [facility] Azithromycin 500 mg/ Sodium (Chloride) 250 mls @ 125 mls/hr IV Q24H [facility] Insulin Glargine (Insulin Glargine,Hum.Rec.Anlog 100 Unit/Ml 10 Ml Vial) 10 unit SUBCUT BEDTIME [facility] Insulin Human Lispro (Insulin Lispro 100 Unit/Ml 3 Ml Vial) 0 unit SUBCUT QIDACHS [facility]; Protocol Pharmacy Consult (Consult Rx Perform Med Rec) 1 each MISCELLANE ONCE PRN PRN Reason: Consult order Sodium Chloride (0.9 % Sodium Chloride Flush 3 Ml Syringe) 3 ml IVFLUSH QSHIFT [facility] Tamsulosin HCl (Tamsulosin Hcl 0.4 Mg Capsule) 0.4 mg PO BEDTIME [facility] Home Medications Medication Instructions Recorded Confirmed Last Taken Type amlodipine 10 mg tablet 10 mg PO DAILY 02/07/21 06/08/21 06/08/21 History aspirin 81 mg tablet,delayed 81 mg PO DAILY 02/07/21 06/08/21 06/08/21 History release atorvastatin 10 mg tablet 10 mg PO BEDTIME 02/07/21 06/08/21 06/08/21 History glipizide 10 mg tablet 10 mg PO BID 02/07/21 06/08/21 06/08/21 History lisinopril 40 mg tablet 40 mg PO DAILY 02/07/21 06/08/21 06/08/21 History metoprolol tartrate 100 mg tablet 100 mg PO BID 02/07/21 06/08/21 06/08/21 History pioglitazone 30 mg tablet 1 tab PO DAILY 06/08/21 06/08/21 06/08/21 History triamcinolone acetonide 0.1 % 1 applic TOPICAL BID-TID 06/08/21 06/08/21 Unknown History topical cream Physical Exam Vital Signs and Narrative: Vital Signs: Last Vital Signs Temp 101.5 F H 06/08/21 22:46 Pulse 142 H 06/08/21 22:46 Resp 34 H 06/08/21 22:46 BP 110/54 L 06/08/21 22:46 Pulse Ox 94 06/08/21 22:46 BMI result Body Mass Index 31.1 Results Labs CBC and Chem 7: 06/11/21 01:01 06/10/21 13:27 Labs: Laboratory Results - last 24 hr 06/08/21 06/08/21 06/08/21 17:17 18:09 18:09 MCV 87.3 MCH 30.2 MCHC 34.6 RDW 15.0 Plt Count 265 MPV 10.6 Immature Gran % (Auto) 2.0 H Neut % (Auto) 90.3 H Lymph % (Auto) 3.1 L Kidder % (Auto) 4.2 Eos % (Auto) 0.2 Baso % (Auto) 0.2 Lymph # (Auto) 0.6 L Kidder # (Auto) 0.8 Eos # (Auto) 0.0 Baso # (Auto) 0.0 Abs Immat Gran (auto) 0.40 H Absolute Neuts (auto) 17.9 H Absolute Nucleated RBC 0.000 Nucleated RBC % (auto) 0.0 Smear Tech's Comments VERIFIED PT 12.4 INR 1.1 APTT 26.0 D-Dimer High Sensitivty 3214 Anion Gap Estim Creat Clear Calc Estimated GFR POC Glucose 67 Random Glucose Calcium Magnesium Troponin I High Sens B-Natriuretic Peptide COVID-19 ([facility]) COVID-19 Clin Com 06/08/21 06/08/21 06/08/21 18:09 18:09 18:09 MCV MCH MCHC RDW Plt Count MPV Immature Gran % (Auto) Neut % (Auto) Lymph % (Auto) Kidder % (Auto) Eos % (Auto) Baso % (Auto) Lymph # (Auto) Kidder # (Auto) Eos # (Auto) Baso # (Auto) Abs Immat Gran (auto) Absolute Neuts (auto) Absolute Nucleated RBC Nucleated RBC % (auto) Smear Tech's Comments PT INR APTT D-Dimer High Sensitivty Anion Gap 20 Estim Creat Clear Calc 28.8 Estimated GFR 23 POC Glucose Random Glucose 67 D Calcium 8.2 L D Magnesium 3.6 H* Troponin I High Sens 46.0 H B-Natriuretic Peptide 303 H COVID-19 (JOSE ALBERTO) Positive A COVID-19 Clin Com See Note Imaging Radiologist's Impressions: Impressions Chest X-Ray 06/08/21 18:24 IMPRESSION: Mildly hypoexpanded with basilar markings more likely reflecting a component of atelectasis. Infiltrates would be possible but less likely. No overt edema. Assessment and Plan (1) Atrial fibrillation with rapid ventricular response: Status: Acute (2) Acute renal failure: Qualifiers: Acute renal failure type: unspecified Qualified Code(s): N17.9 - Acute kidney failure, unspecified Status: Acute (3) COVID-19: Status: Acute (4) Weakness: Status: Acute 76-year-old male with a past medical history of hypertension, hyperlipidemia, diabetes, BPH, arthritis presented the hospital today with a chief complaint of generalized weakness. Noted to have following conditions COVID-19 pneumonia: Patient empirically started on ceftriaxone, azithromycin, Decadron. Id consult for further recommendations. Supplemental oxygen p.r.n. Patient has been vaccinated in the past including booster dose. AFib with rapid ventricular response: New onset. Patient initially received IV diltiazem push x2, metoprolol IV push x1, p.o. diltiazem 120; Patient heart rate continued to be in 140s--> started on diltiazem drip. Patient's blood pressure on the soft side-will hold home antihypertensives. Monitor blood pressure closely while on the diltiazem drip and adjust accordingly. Echocardiogram TSH Cardiology consult Elevated troponins: Likely in the setting of demand/reduced clearance. Patient denies any chest pain. Nonischemic EKG. Elevated D-dimer: Multifactorial. Patient empirically started on Lovenox at therapeutic dose. Unable to do CT chest given renal insufficiency. ROBIN: Likely prerenal. Gentle IV fluids. Villa catheter for I's and O's. Hypermagnesemia: Likely contributing to his bilateral leg weakness; grossly nonfocal neurologically. Elevated my initial levels likely in the setting of renal insufficiency. Will continue to monitor. Fall precautions. PT/OT eventually. Diabetes: Hold home oral hypoglycemic agents. Start with Lantus 10 units at bedtime and insulin sliding scale. Monitor fingerstick glucose. Hypertension: Held home antihypertensives given soft blood pressure as mentioned above. History of BPH: Continue home finasteride, tamsulosin. Hyperlipidemia: Continue home statin DVT prophylaxis: Patient on Lovenox Code status: Full code Quality Stroke Does the patient have a stroke diagnosis?: No VTE Prior VTE?: No VTE Risk Level:: Medical - moderate - high VTE Device Contraindication: Treatment Not Indicated VTE Drug Contraindication: Treatment Not Indicated
[2021-06-08] MEDS: Acetaminophen 325 MG TABLET 975 MG PO (23:23)
[2021-06-08 23:28] LABS: Lactic Acid 1.3 mmol/L (0.5-2.0)
[2021-06-08 23:32] LABS: Anion Gap 17 (12-20); Blood Urea Nitrogen 93 mg/dL (9-16); Calcium 7.6 mg/dL (8.4-10.2); Carbon Dioxide 22 mmol/L (22-29); Chloride 96 mmol/L (96-108); Creatinine Clr Calc Pharmacy 30.6; Estimated Glomerular Filt Rate 24; Glucose Random 65 mg/dL (60-115); Potassium 3.6 mmol/L (3.3-5.1); Sodium 131 mmol/L (135-145)
[2021-06-08 23:38] LABS: B Type Natriuretic Peptide 270 pg/mL (<100)
[2021-06-08 23:39] LABS: Glucose, Whole Blood 60 mg/dL (60-115)
[2021-06-08 23:50] LABS: Troponin-I High Sensitivity 100.4 ng/L (<3.5-35.0)
[2021-06-09] VITALS (16 sets, daily range): BP systolic 84–126; BP diastolic 38–66; PULSE 87–137; RESP 19–34; TEMP 36.7–38.1; O2SAT 90–96
[2021-06-09] MEDS: 0.9 % Sodium Chloride 500 ML 250 ML IV (00:07)
--- NOTE | 2021-06-09 00:16 | PC.NURSE ---
at 2242 this rn to bedside. pt tachy afib 140-150. pt reports need to urinate. this rn asked pt to use urinal while seated, pt reports he is unable to urinate while seated d/t BPH. pt assisted to standing, rectal temp 101.5. pt weak, unable to remain standing. this rn tt ramon to make him aware and this rn requests lara catheter as well as more rate control meds, he states to defer to anwer as he is unable to see pt at this time. this rn notifies ramon that anwer has left. this rn defers to dr fritz, makes him aware. dr garza orders rate control bolus, NS bolus, rate control gtt and lara catheter as well as bc x 2 and lactic. ramon then called this rn and reaffirmed dr fritz's orders. this rn to bedside, medicate with 10mg dilt bolus, rate 90-110s and bp dropped to 86/39. ramon aware. this rn holding dilt gtt at this time. unable to place lara cath, this rn placed coude cath. pt bgl 60, provided po sandwich and soda. pt urinary cath draining appropriately. pt bp now 84/39 map 49, ramon aware.
[2021-06-09] MEDS: cefTRIAXone sodium 1 GM in 0.9 % Sodium Chloride 50 ML IV (00:47)
[2021-06-09 00:54] LABS: Appearance Urine HAZY; Color Urine DK YELLOW; Glucose Urine UA NEG (NEG); Leukocyte Esterase Urine NEG (NEG); Nitrite Urine NEG (NEG); PH 5.5 (5.0-8.0); Specific Gravity - Urine >= 1.030 (1.005-1.025); UACC Culture Trigger NO; Urine Blood 2+ (NEG); Urine Ketones NEG (NEG); Urine Protein TRACE MG/DL (NEG-TRACE)
[2021-06-09] MEDS: Azithromycin 500 MG in 0.9 % Sodium Chloride 250 ML 125 MG IV (00:56)
--- NOTE | 2021-06-09 01:11 | PC.NURSE ---
Pt bp 77/43, leonneni aware, states to give 250cc bolus to pt.
[2021-06-09] MEDS: 0.9 % Sodium Chloride 250 ML 999 ML IV (01:13)
[2021-06-09 01:24] LABS: WBC Urine 0-2 /HPF (0-4)
[2021-06-09 01:25] LABS: Amorphous Sediment Urine 1+ /LPF; Bacteria Urine TRACE /LPF; Granular Casts Urine 0-2 /LPF; Squamous Epithelial Cell Urine TRACE /LPF
--- NOTE | 2021-06-09 01:35 | PC.NURSE ---
dr navarro aware of current vs and also reports he is aware of repeat trop 100.4
[2021-06-09 08:35] LABS: Anion Gap 16 (12-20); Blood Urea Nitrogen 94 mg/dL (9-16); Calcium 7.3 mg/dL (8.4-10.2); Carbon Dioxide 22 mmol/L (22-29); Chloride 97 mmol/L (96-108); Creatinine Clr Calc Pharmacy 31.1; Estimated Glomerular Filt Rate 25; Glucose Random 63 mg/dL (60-115); Magnesium 3.3 mg/dL (1.6-2.6); Potassium 3.6 mmol/L (3.3-5.1); Sodium 131 mmol/L (135-145)
[2021-06-09 08:42] LABS: Troponin-I High Sensitivity 983.7 ng/L (<3.5-35.0)
[2021-06-09 08:45] LABS: Glucose, Whole Blood 72 mg/dL (60-115)
[2021-06-09] MEDS: dexAMETHasone sod phosphate 4 MG/ML VIAL 6 MG IVPUSH (08:52)
[2021-06-09] MEDS: 0.9 % Sodium Chloride Flush 3 ML SYRINGE IVFLUSH (08:54)
[2021-06-09] MEDS: Finasteride 5 MG TABLET PO (08:55)
[2021-06-09] MEDS: dilTIAZem HCL 125 MG in 0.9 % Sodium Chloride 100 ML IVCONT (09:10)
--- NOTE | 2021-06-09 11:29 | MHC.CM.PN ---
Attempted to meet with patient in regards to discharge planning. Patient currently sleeping. Spoke with patient's , Fiorella via telephone at [phone]. Patient lives with Fiorella, ambulates independently and had no services prior to coming to the hospital. PCP verified as Dr Valdez. Fiorella states patient does not have a HCP. HCP will be offered to patient when he is awake. Patient received 3 Moderna vaccines. Patient positive for Covid on 06/08. Fiorella aware. At this time, no services are anticipated to be needed because patient is not homebound at baseline. Family will transport patient home when medically stable. Continue to monitor for d/c needs.
--- NOTE | 2021-06-09 11:53 | PC.NURSE ---
afib on monitor, alert, cardizem drip infusing hr 110-120. vq scan complete, now back in ed and moved to a hospital bed, dr sepulveda at bedside
--- NOTE | 2021-06-09 11:55 | P.CONCA_ITS ---
History of Present Illness History of Present Illness Date of Service: 06/09/21 Requesting physician: Delfina Noland Consult reason: atrial fibrillation Chief complaint: AFib with RVR Narrative: I was consulted to see Dyllan in cardiology consultation today because of atrial fibrillation with rapid ventricular response. He is a pleasant 76-year-old male with prior history of hypertension, diabetes no significant prior cardiac history presented to the hospital progressive weakness. He was not able to eat much although he says he has been hydrating well. He remained continuously weak and therefore came to the emergency room. His diagnosed with COVID pneumonia and is also noted to have acute kidney injury. On presentation was noted to have atrial fibrillation rapid ventricular response. Was started on rate lowering medications. Heart rate is better controlled. Continues to have elevated creatinine consistent with acute kidney injury. He denies any shortness of breath. No significant hypoxia has been noticed. He is noted to have leukocytosis. Denies palpitations or chest pain. Denies lightheadedness, syncope. No prior history of atrial fibrillation. Review of Systems Constitutional: Constitutional: Denies chills, Reports fatigue, Denies fever(s), Reports malaise, Reports poor appetite and Reports weakness Eyes: Eyes: Reports no additional eye complaints ENT: Reports system reviewed and no additional complaints, except as d ocumented Cardiovascular: Cardiovascular: Denies chest pain, Denies Loss of Consciousness, Denies palpitations and Denies dyspnea Respiratory: Respiratory: Reports no additional respiratory complaints and Denies dyspnea Gastrointestinal: Gastrointestinal: Reports no additional gastrointestinal complaints Genitourinary: Genitourinary: Reports no additional male genitourinary complai nts Musculoskeletal: Musculoskeletal: Reports no additional musculoskeletal complaints Integumentary/Breasts: Skin/Breast: Reports system reviewed and no additional complaints, except as docu Neurologic: Reports system reviewed and no additional complaints, except as documented and Reports weakness Psychiatric: Psychiatric: Reports no additional psychiatric complaints Endocrine: Endocrine: Reports no additional endocrine complaints, Reports fatigue and Denies palpitations Hematologic/Lymphatic: Hematologic/Lymphatic: Reports no additional hematologic/lymphatic complaints Allergic/Immunologic: Allergic/Immunologic: Reports no additional al lergic/immunologic complaints PMFSH Past Medical History Medical History Arthritis COVID-19 vaccine series completed Diabetes Elevated cholesterol Elevated prostate specific antigen [PSA] History of BPH HTN (hypertension) Surgical History Surgical History No significant past surgical history Social History Social History Are you a primary client care coordinator to a significant other at home: No Do you presently have visiting nurse or other home services: No Patient Tobacco Use Status: Current everyday Tobacco user Tobacco use type: Cigar Advance Directives: No Advance Directives Information Provided: No service: No Current occupational status: retired Meds Allergies Allergy/AdvReac Type Severity Reaction Status Date / Time No Known Allergies Allergy Verified 06/08/21 18:52 Active Medications: Current Medications Atorvastatin Calcium (Atorvastatin Calcium 10 Mg Tablet) 10 mg PO BEDTIME [facility] Dexamethasone Sodium Phosphate (Dexamethasone Sod Phosphate 4 Mg/Ml Vial) 6 mg IVPUSH DAILY [facility] Last Admin: 06/09/21 08:52 Dose: 6 mg Documented by: Dextrose (Dextrose 50 % 25 Gm/50 Ml Vial) 25 gm IVPUSH Q15M PRN; Protocol PRN Reason: per Hypoglycemia Standing Ord. Enoxaparin Sodium (Enoxaparin Sodium 60 Mg/0.6 Ml Syringe) 105 mg 1 mg/kg (105 mg) SUBCUT Q12H [facility] Last Admin: 06/09/21 00:49 Dose: Not Given Documented by: Finasteride (Finasteride 5 Mg Tablet) 5 mg PO DAILY [facility] Last Admin: 06/09/21 08:55 Dose: 5 mg Documented by: Glucose (Glucose Gel 15 Gm Gel..Gram.) 15 gm PO Q15M PRN; Protocol PRN Reason: per Hypoglycemia Standing Ord. Diltiazem HCl 125 mg/ Sodium (Chloride) 125 mls @ 0 mls/hr IVCONT .Q0M [facility]; Protocol Last Titration: 06/09/21 09:51 Dose: 10 mg/hr, 10 mls/hr Documented by: Diltiazem HCl 125 mg/ Sodium (Chloride) 125 mls @ 0 mls/hr IVCONT .Q0M [facility]; Protocol Ceftriaxone Sodium 1 gm/ (Sodium Chloride) 50 mls @ 100 mls/hr IV Q24H [facility] Azithromycin 500 mg/ Sodium (Chloride) 250 mls @ 125 mls/hr IV Q24H [facility] Insulin Glargine (Insulin Glargine,Hum.Rec.Anlog 100 Unit/Ml 10 Ml Vial) 10 unit SUBCUT BEDTIME [facility] Insulin Human Lispro (Insulin Lispro 100 Unit/Ml 3 Ml Vial) 0 unit SUBCUT QIDACHS [facility]; Protocol Last Admin: 06/09/21 08:53 Dose: Not Given Documented by: Pharmacy Consult (Consult Rx Perform Med Rec) 1 each MISCELLANE ONCE PRN PRN Reason: Consult order Sodium Chloride (0.9 % Sodium Chloride Flush 3 Ml Syringe) 3 ml IVFLUSH QSHIFT [facility] Last Admin: 06/09/21 08:54 Dose: 3 ml Documented by: Tamsulosin HCl (Tamsulosin Hcl 0.4 Mg Capsule) 0.4 mg PO BEDTIME [facility] Home Medications Medication Instructions Recorded Confirmed Last Taken Type amlodipine 10 mg tablet 10 mg PO DAILY 02/07/21 06/08/21 06/08/21 History aspirin 81 mg tablet,delayed 81 mg PO DAILY 02/07/21 06/08/21 06/08/21 History release atorvastatin 10 mg tablet 10 mg PO BEDTIME 02/07/21 06/08/21 06/08/21 History glipizide 10 mg tablet 10 mg PO BID 02/07/21 06/08/21 06/08/21 History lisinopril 40 mg tablet 40 mg PO DAILY 02/07/21 06/08/21 06/08/21 History metoprolol tartrate 100 mg tablet 100 mg PO BID 02/07/21 06/08/21 06/08/21 History pioglitazone 30 mg tablet 1 tab PO DAILY 06/08/21 06/08/21 06/08/21 History triamcinolone acetonide 0.1 % 1 applic TOPICAL BID-TID 06/08/21 06/08/21 Unknown History topical cream Physical Exam Vital Signs: Vital Signs: Last Vital Signs Temp 99.1 F 06/09/21 08:47 Pulse 114 H 06/09/21 10:45 Resp 22 H 06/09/21 09:10 BP 124/56 L 06/09/21 10:45 Pulse Ox 90 L 06/09/21 08:47 BMI result Body Mass Index 31.1 Const: General: cooperative, comfortable, no acute distress, alert, awake and ill appearing Nutritional Appearance: obese Orientation/consciousness: patient oriented x3 Neck: Neck: Yes trachea midline, Yes supple and Yes no JVD Resp: Effort & Inspection: normal respiratory effort Auscultation: crackles, no wheezes and diminished lung sounds Cardio: Jugular venous distension: no JVD Rate: tachycardic Rhythm: abnormal rhythm irregularly irregular Heart sounds: S1 normal heart sound present, S2 normal heart sound present, no click, no gallops and no murmurs GI: Auscultation: normal bowel sounds Skin: General skin exam: no rashes or lesions noted Neuro: General: patient oriented x3 and no focal motor deficits Extrem: General: Yes no clubbing, cyanosis or edema Psych: Appearance: grossly normal Objective Labs and Meds Result diagrams: 06/08/21 18:09 06/09/21 08:01 Lab results: Laboratory Results - last 24 hr 06/08/21 06/08/21 06/08/21 17:17 18:09 18:09 WBC 19.8 H RBC 4.34 L Hgb 13.1 L Hct 37.9 L MCV 87.3 MCH 30.2 MCHC 34.6 RDW 15.0 Plt Count 265 MPV 10.6 Immature Gran % (Auto) 2.0 H Neut % (Auto) 90.3 H Lymph % (Auto) 3.1 L [place] % (Auto) 4.2 Eos % (Auto) 0.2 Baso % (Auto) 0.2 Lymph # (Auto) 0.6 L [place] # (Auto) 0.8 Eos # (Auto) 0.0 Baso # (Auto) 0.0 Abs Immat Gran (auto) 0.40 H Absolute Neuts (auto) 17.9 H Absolute Nucleated RBC 0.000 Nucleated RBC % (auto) 0.0 Smear Tech's Comments VERIFIED PT 12.4 INR 1.1 APTT 26.0 D-Dimer High Sensitivty 3214 Sodium Potassium Chloride Carbon Dioxide Anion Gap BUN Creatinine Estim Creat Clear Calc Estimated GFR POC Glucose 67 Random Glucose Lactic Acid Calcium Magnesium Troponin I High Sens B-Natriuretic Peptide Urine Color Urine Appearance Urine pH Ur Specific [place] Urine Protein Urine Glucose (UA) Urine Ketones Urine Blood Urine Nitrite Ur Leukocyte Esterase Urine RBC Urine WBC Ur Squamous Epith Cells Amorphous Sediment Urine Bacteria Granular Casts COVID-19 ([facility]) COVID-19 Clin Com 06/08/21 06/08/21 06/08/21 18:09 18:09 18:09 WBC RBC Hgb Hct MCV MCH MCHC RDW Plt Count MPV Immature Gran % (Auto) Neut % (Auto) Lymph % (Auto) [place] % (Auto) Eos % (Auto) Baso % (Auto) Lymph # (Auto) [place] # (Auto) Eos # (Auto) Baso # (Auto) Abs Immat Gran (auto) Absolute Neuts (auto) Absolute Nucleated RBC Nucleated RBC % (auto) Smear Tech's Comments PT INR APTT D-Dimer High Sensitivty Sodium 130 L Potassium 4.2 Chloride 93 L Carbon Dioxide 21 L Anion Gap 20 BUN 91 H Creatinine 2.76 H Estim Creat Clear Calc 28.8 Estimated GFR 23 POC Glucose Random Glucose 67 D Lactic Acid Calcium 8.2 L D Magnesium 3.6 H* Troponin I High Sens 46.0 H B-Natriuretic Peptide 303 H Urine Color Urine Appearance Urine pH Ur Specific [place] Urine Protein Urine Glucose (UA) Urine Ketones Urine Blood Urine Nitrite Ur Leukocyte Esterase Urine RBC Urine WBC Ur Squamous Epith Cells Amorphous Sediment Urine Bacteria Granular Casts COVID-19 ([facility]) Positive A COVID-19 [employer] Com See Note 06/08/21 06/08/21 06/08/21 23:11 23:11 23:11 WBC RBC Hgb Hct MCV MCH MCHC RDW Plt Count MPV Immature Gran % (Auto) Neut % (Auto) Lymph % (Auto) [place] % (Auto) Eos % (Auto) Baso % (Auto) Lymph # (Auto) [place] # (Auto) Eos # (Auto) Baso # (Auto) Abs Immat Gran (auto) Absolute Neuts (auto) Absolute Nucleated RBC Nucleated RBC % (auto) Smear Tech's Comments PT INR APTT D-Dimer High Sensitivty Sodium 131 L Potassium 3.6 Chloride 96 Carbon Dioxide 22 Anion Gap 17 BUN 93 H Creatinine 2.60 H Estim Creat Clear Calc 30.6 Estimated GFR 24 POC Glucose Random Glucose 65 Lactic Acid 1.3 Calcium 7.6 L D Magnesium Troponin I High Sens 100.4 H* D B-Natriuretic Peptide Urine Color Urine Appearance Urine pH Ur Specific [place] Urine Protein Urine Glucose (UA) Urine Ketones Urine Blood Urine Nitrite Ur Leukocyte Esterase Urine RBC Urine WBC Ur Squamous Epith Cells Amorphous Sediment Urine Bacteria Granular Casts COVID-19 ([facility]) COVID-19 Clin Com 06/08/21 06/08/21 06/09/21 23:11 23:32 00:12 WBC RBC Hgb Hct MCV MCH MCHC RDW Plt Count MPV Immature Gran % (Auto) Neut % (Auto) Lymph % (Auto) [place] % (Auto) Eos % (Auto) Baso % (Auto) Lymph # (Auto) [place] # (Auto) Eos # (Auto) Baso # (Auto) Abs Immat Gran (auto) Absolute Neuts (auto) Absolute Nucleated RBC Nucleated RBC % (auto) Smear Tech's Comments PT INR APTT D-Dimer High Sensitivty Sodium Potassium Chloride Carbon Dioxide Anion Gap BUN Creatinine Estim Creat Clear Calc Estimated GFR POC Glucose 60 Random Glucose Lactic Acid Calcium Magnesium Troponin I High Sens B-Natriuretic Peptide 270 H Urine Color DK YELLOW Urine Appearance HAZY Urine pH 5.5 Ur Specific [place] >= 1.030 H Urine Protein TRACE Urine Glucose (UA) NEG Urine Ketones NEG Urine Blood 2+ H Urine Nitrite NEG Ur Leukocyte Esterase NEG Urine RBC 5-9 H Urine WBC 0-2 Ur Squamous Epith Cells TRACE Amorphous Sediment 1+ Urine Bacteria TRACE Granular Casts 0-2 COVID-19 ([facility]) COVID-19 [employer] 06/09/21 06/09/21 06/09/21 08:00 08:01 08:40 WBC RBC Hgb Hct MCV MCH MCHC RDW Plt Count MPV Immature Gran % (Auto) Neut % (Auto) Lymph % (Auto) [place] % (Auto) Eos % (Auto) Baso % (Auto) Lymph # (Auto) [place] # (Auto) Eos # (Auto) Baso # (Auto) Abs Immat Gran (auto) Absolute Neuts (auto) Absolute Nucleated RBC Nucleated RBC % (auto) Smear Tech's Comments PT INR APTT D-Dimer High Sensitivty Sodium 131 L Potassium 3.6 Chloride 97 Carbon Dioxide 22 Anion Gap 16 BUN 94 H Creatinine 2.56 H Estim Creat Clear Calc 31.1 Estimated GFR 25 POC Glucose 72 Random Glucose 63 Lactic Acid Calcium 7.3 L Magnesium 3.3 H Troponin I High Sens 983.7 H* D B-Natriuretic Peptide Urine Color Urine Appearance Urine pH Ur Specific [place] Urine Protein Urine Glucose (UA) Urine Ketones Urine Blood Urine Nitrite Ur Leukocyte Esterase Urine RBC Urine WBC Ur Squamous Epith Cells Amorphous Sediment Urine Bacteria Granular Casts COVID-19 ([facility]) COVID-19 Clin Com Imaging Radiologist's impression: Impressions Chest X-Ray 06/08/21 18:24 IMPRESSION: Mildly hypoexpanded with basilar markings more likely reflecting a component of atelectasis. Infiltrates would be possible but less likely. No overt edema. Assessment and Plan (1) Atrial fibrillation with rapid ventricular response: Status: Acute Atrial fibrillation rapid ventricular response in elderly gentleman with multiple risk factors for atrial fibrillation due to an triggered by acute medical illness and COVID pneumonia. Also noted to have acute kidney injury. Overall prognosis guarded. For now will pursue rate control. Start on p.o. metoprolol 25 mg p.o. q.6 hours. Given his acute kidney injury avoid direct oral anticoagulant but can give renally adjusted dose of Lovenox. Once kidney functions improve can switch to oral anticoagulant therapy. Echocardiogram once patient is more stable. Continue supportive care for his COVID pneumonia and sepsis. IV hydration for acute kidney injury. Also encourage p.o. fluids. Will follow with you. Procedures Date of Service Date of Service: 06/09/21
--- NOTE | 2021-06-09 12:16 | PC.NURSE ---
patient a&ox3, no c/o pain or discomfort, cardiac surgeon afib 100-125, vitals otherwise stable, will continue to monitor.
[2021-06-09 12:31] LABS: Glucose, Whole Blood 79 mg/dL (60-115)
[2021-06-09] MEDS: Enoxaparin Sodium 100 MG/ML SYRINGE SUBCUT (12:40)
--- NOTE | 2021-06-09 12:42 | PC.NURSE ---
pt was found with oxygen off, o2 sat was 88%, reapplied O2 and patients sat increased to 94, pt had notable sob without the oxygen but recovered well once replaced, quality assurance monitor afib 105-120, will continue to monitor, cardizem drip at 10 per order, will continue to monitor.
--- NOTE | 2021-06-09 13:31 | PC.NURSE ---
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
--- NOTE | 2021-06-09 14:57 | HO.PM.IMPN ---
Subjective Subjective Date of Service: 06/09/21 Interval History: Patient denies chest pain, no palpitation, denies fever chills, offers no acute complaints, tele monitor showed ventricular rate in 120-130, tachypneic but does not appear in acute distress. Review of Systems Review of Systems: Yes all other systems are reviewed and are negative Physical Exam Vital Signs: Vital Signs: Last Vital Signs Temp 98.9 F 06/09/21 14:38 Pulse 126 H 06/09/21 14:38 Resp 26 H 06/09/21 14:38 BP 126/60 06/09/21 14:38 Pulse Ox 93 06/09/21 14:38 BMI result Body Mass Index 31.1 General awake alert, tachypneic, ill-appearing, no acute distress. HEENT pupils equal round reactive to light and accommodation, moist mucous membranes Neck supple, no JVD. CVS irregular rate rhythm, Respiratory lungs basilar crackles,no respiratory distress, no wheez. Gastrointestinal abdomen soft, nontender, obese, bowel sounds audible Extremities no edema. Neuro nonfocal Skin no rash Psych appropriate affect Objective Data Active Medications Atorvastatin Calcium (Atorvastatin Calcium 10 Mg Tablet) 10 mg PO BEDTIME [facility] Dexamethasone Sodium Phosphate (Dexamethasone Sod Phosphate 4 Mg/Ml Vial) 6 mg IVPUSH DAILY [facility] Last Admin: 06/09/21 08:52 Dose: 6 mg Documented by: SYDNI Dextrose (Dextrose 50 % 25 Gm/50 Ml Vial) 25 gm IVPUSH Q15M PRN; Protocol PRN Reason: per Hypoglycemia Standing Ord. Enoxaparin Sodium (Enoxaparin Sodium 100 Mg/Ml Syringe) 100 mg SUBCUT Q12H [facility] Last Admin: 06/09/21 12:40 Dose: 100 mg Documented by: MAXIMO Finasteride (Finasteride 5 Mg Tablet) 5 mg PO DAILY [facility] Last Admin: 06/09/21 08:55 Dose: 5 mg Documented by: SYDNI Glucose (Glucose Gel 15 Gm Gel..Gram.) 15 gm PO Q15M PRN; Protocol PRN Reason: per Hypoglycemia Standing Ord. Diltiazem HCl 125 mg/ Sodium (Chloride) 125 mls @ 0 mls/hr IVCONT .Q0M [facility]; Protocol Last Titration: 06/09/21 09:51 Dose: 10 mg/hr, 10 mls/hr Documented by: SYDNI Diltiazem HCl 125 mg/ Sodium (Chloride) 125 mls @ 0 mls/hr IVCONT .Q0M [facility]; Protocol Ceftriaxone Sodium 1 gm/ (Sodium Chloride) 50 mls @ 100 mls/hr IV Q24H [facility] Azithromycin 500 mg/ Sodium (Chloride) 250 mls @ 125 mls/hr IV Q24H [facility] Insulin Glargine (Insulin Glargine,Hum.Rec.Anlog 100 Unit/Ml 10 Ml Vial) 10 unit SUBCUT BEDTIME [facility] Insulin Human Lispro (Insulin Lispro 100 Unit/Ml 3 Ml Vial) 0 unit SUBCUT QIDACHS [facility]; Protocol Last Admin: 06/09/21 12:19 Dose: Not Given Documented by: MAXIMO Non-Admin Reason: No Insulin Coverage Pharmacy Consult (Consult Rx Perform Med Rec) 1 each MISCELLANE ONCE PRN PRN Reason: Consult order Sodium Chloride (0.9 % Sodium Chloride Flush 3 Ml Syringe) 3 ml IVFLUSH QSHIFT [facility] Last Admin: 06/09/21 08:54 Dose: 3 ml Documented by: SYDNI Tamsulosin HCl (Tamsulosin Hcl 0.4 Mg Capsule) 0.4 mg PO BEDTIME [facility] Labs CBC & Chem 7: 06/08/21 18:09 06/09/21 08:01 Labs: Laboratory Results - last 24 hr 06/08/21 06/08/21 06/08/21 17:17 18:09 18:09 MCV 87.3 MCH 30.2 MCHC 34.6 RDW 15.0 Plt Count 265 MPV 10.6 Immature Gran % (Auto) 2.0 H Neut % (Auto) 90.3 H Lymph % (Auto) 3.1 L [place] % (Auto) 4.2 Eos % (Auto) 0.2 Baso % (Auto) 0.2 Lymph # (Auto) 0.6 L [place] # (Auto) 0.8 Eos # (Auto) 0.0 Baso # (Auto) 0.0 Abs Immat Gran (auto) 0.40 H Absolute Neuts (auto) 17.9 H Absolute Nucleated RBC 0.000 Nucleated RBC % (auto) 0.0 Smear Tech's Comments VERIFIED PT 12.4 INR 1.1 APTT 26.0 D-Dimer High Sensitivty 3214 Anion Gap Estim Creat Clear Calc Estimated GFR POC Glucose 67 Random Glucose Lactic Acid Calcium Magnesium Troponin I High Sens B-Natriuretic Peptide Urine Color Urine Appearance Urine pH Ur Specific [place] Urine Protein Urine Glucose (UA) Urine Ketones Urine Blood Urine Nitrite Ur Leukocyte Esterase Urine RBC Urine WBC Ur Squamous Epith Cells Amorphous Sediment Urine Bacteria Granular Casts COVID-19 (JOSE ALBERTO) COVID-19 Clin Com 06/08/21 06/08/21 06/08/21 18:09 18:09 18:09 MCV MCH MCHC RDW Plt Count MPV Immature Gran % (Auto) Neut % (Auto) Lymph % (Auto) [place] % (Auto) Eos % (Auto) Baso % (Auto) Lymph # (Auto) [place] # (Auto) Eos # (Auto) Baso # (Auto) Abs Immat Gran (auto) Absolute Neuts (auto) Absolute Nucleated RBC Nucleated RBC % (auto) Smear Tech's Comments PT INR APTT D-Dimer High Sensitivty Anion Gap 20 Estim Creat Clear Calc 28.8 Estimated GFR 23 POC Glucose Random Glucose 67 D Lactic Acid Calcium 8.2 L D Magnesium 3.6 H* Troponin I High Sens 46.0 H B-Natriuretic Peptide 303 H Urine Color Urine Appearance Urine pH Ur Specific [place] Urine Protein Urine Glucose (UA) Urine Ketones Urine Blood Urine Nitrite Ur Leukocyte Esterase Urine RBC Urine WBC Ur Squamous Epith Cells Amorphous Sediment Urine Bacteria Granular Casts COVID-19 (JOSE ALBERTO) Positive A COVID-19 Clin Com See Note 06/08/21 06/08/21 06/08/21 23:11 23:11 23:11 MCV MCH MCHC RDW Plt Count MPV Immature Gran % (Auto) Neut % (Auto) Lymph % (Auto) [place] % (Auto) Eos % (Auto) Baso % (Auto) Lymph # (Auto) [place] # (Auto) Eos # (Auto) Baso # (Auto) Abs Immat Gran (auto) Absolute Neuts (auto) Absolute Nucleated RBC Nucleated RBC % (auto) Smear Tech's Comments PT INR APTT D-Dimer High Sensitivty Anion Gap 17 Estim Creat Clear Calc 30.6 Estimated GFR 24 POC Glucose Random Glucose 65 Lactic Acid 1.3 Calcium 7.6 L D Magnesium Troponin I High Sens 100.4 H* D B-Natriuretic Peptide Urine Color Urine Appearance Urine pH Ur Specific [place] Urine Protein Urine Glucose (UA) Urine Ketones Urine Blood Urine Nitrite Ur Leukocyte Esterase Urine RBC Urine WBC Ur Squamous Epith Cells Amorphous Sediment Urine Bacteria Granular Casts COVID-19 (JOSE ALBERTO) COVID-19 [facility] Com 06/08/21 06/08/21 06/09/21 23:11 23:32 00:12 MCV MCH MCHC RDW Plt Count MPV Immature Gran % (Auto) Neut % (Auto) Lymph % (Auto) [place] % (Auto) Eos % (Auto) Baso % (Auto) Lymph # (Auto) [place] # (Auto) Eos # (Auto) Baso # (Auto) Abs Immat Gran (auto) Absolute Neuts (auto) Absolute Nucleated RBC Nucleated RBC % (auto) Smear Tech's Comments PT INR APTT D-Dimer High Sensitivty Anion Gap Estim Creat Clear Calc Estimated GFR POC Glucose 60 Random Glucose Lactic Acid Calcium Magnesium Troponin I High Sens B-Natriuretic Peptide 270 H Urine Color DK YELLOW Urine Appearance HAZY Urine pH 5.5 Ur Specific [place] >= 1.030 H Urine Protein TRACE Urine Glucose (UA) NEG Urine Ketones NEG Urine Blood 2+ H Urine Nitrite NEG Ur Leukocyte Esterase NEG Urine RBC 5-9 H Urine WBC 0-2 Ur Squamous Epith Cells TRACE Amorphous Sediment 1+ Urine Bacteria TRACE Granular Casts 0-2 COVID-19 (JOSE ALBERTO) COVID-19 [id number] 06/09/21 06/09/21 06/09/21 08:00 08:01 08:40 MCV MCH MCHC RDW Plt Count MPV Immature Gran % (Auto) Neut % (Auto) Lymph % (Auto) [place] % (Auto) Eos % (Auto) Baso % (Auto) Lymph # (Auto) [place] # (Auto) Eos # (Auto) Baso # (Auto) Abs Immat Gran (auto) Absolute Neuts (auto) Absolute Nucleated RBC Nucleated RBC % (auto) Smear Tech's Comments PT INR APTT D-Dimer High Sensitivty Anion Gap 16 Estim Creat Clear Calc 31.1 Estimated GFR 25 POC Glucose 72 Random Glucose 63 Lactic Acid Calcium 7.3 L Magnesium 3.3 H Troponin I High Sens 983.7 H* D B-Natriuretic Peptide Urine Color Urine Appearance Urine pH Ur Specific [place] Urine Protein Urine Glucose (UA) Urine Ketones Urine Blood Urine Nitrite Ur Leukocyte Esterase Urine RBC Urine WBC Ur Squamous Epith Cells Amorphous Sediment Urine Bacteria Granular Casts COVID-19 (JOSE ALBERTO) COVID-19 Clin Com 06/09/21 12:18 MCV MCH MCHC RDW Plt Count MPV Immature Gran % (Auto) Neut % (Auto) Lymph % (Auto) [place] % (Auto) Eos % (Auto) Baso % (Auto) Lymph # (Auto) [place] # (Auto) Eos # (Auto) Baso # (Auto) Abs Immat Gran (auto) Absolute Neuts (auto) Absolute Nucleated RBC Nucleated RBC % (auto) Smear Tech's Comments PT INR APTT D-Dimer High Sensitivty Anion Gap Estim Creat Clear Calc Estimated GFR POC Glucose 79 Random Glucose Lactic Acid Calcium Magnesium Troponin I High Sens B-Natriuretic Peptide Urine Color Urine Appearance Urine pH Ur Specific [place] Urine Protein Urine Glucose (UA) Urine Ketones Urine Blood Urine Nitrite Ur Leukocyte Esterase Urine RBC Urine WBC Ur Squamous Epith Cells Amorphous Sediment Urine Bacteria Granular Casts COVID-19 (JOSE ALBERTO) COVID-19 Clin Com Microbiology Microbiology Results: Microbiology 06/08/21 23:11 Blood Culture - Preliminary Blood - Venous Prelim: GPC Gram Stain only 06/08/21 23:11 Blood Culture - Preliminary Blood - Venous Prelim: GPC Gram Stain only Assessment and Plan (1) Atrial fibrillation with rapid ventricular response: Status: Acute (2) Acute renal failure: Status: Acute (3) COVID-19: Status: Acute Assessment and Plan: 76-year-old male with a past medical history of hypertension, hyperlipidemia, diabetes, BPH, arthritis presented the hospital today with a chief complaint of generalized weakness.? Noted to have covid 19/atrial fibrillation and acute kidney injury COVID-19 pneumonia: Noted to be tachypneic and hypoxic Continue O2 support IV Decadron day 2 On ceftriaxone, and azithromycin, follow procalcitonin Patient has been vaccinated in the past including booster dose. Await ID input for remdesivir. Acute hypoxic respiratory failure due to COVID-19 Continue O2 support New onset AFib with rapid ventricular response:?? Patient denies chest pain no palpitation tele monitor showed persistent atrial fibrillation, on IV Cardizem drip Status post IV diltiazem push x2, metoprolol IV push x1, p.o. diltiazem 120 in ER Follow Echocardiogram Seen by Cardiology they recommend metoprolol 25 mg by mouth q.6 hours, will continue Lovenox for now once renal function improves will switch to oral anticoagulant Elevated troponins: Troponin trending up? Likely in the setting of demand/reduced clearance.? Patient denies any chest pain.? Nonischemic EKG.? Elevated D-dimer:? Multifactorial.? Patient empirically started on Lovenox at therapeutic dose.? Unable to do CT chest given renal insufficiency. ROBIN:? Creatinine 2.76 improved to 2.56 after IV hydration will avoid hypotension, avoid nephrotoxins follow BMP Hypermagnesemia: Likely in the setting of renal insufficiency Will continue to monitor.? Diabetes: Hold home oral hypoglycemic agents. Low blood sugars continue insulin sliding scale DC Lantus Hypertension: BP soft on admission, now improved patient started on metoprolol for better heart rate control History of BPH: Continue home finasteride, tamsulosin. ? Hyperlipidemia: Continue statin DVT prophylaxis: on Lovenox Code status: Full code Quality Stroke Does the patient have a stroke diagnosis?: No VTE Prior VTE?: No VTE Risk Level:: Medical - moderate - high VTE Device Contraindication: Treatment Not Indicated VTE Drug Contraindication: Treatment Not Indicated
[2021-06-09 16:42] LABS: Glucose, Whole Blood 86 mg/dL (60-115)
[2021-06-09] MEDS: vancomycin HCL 750 MG in 0.9 % Sodium Chloride 250 ML 265 MG IV (18:01)
[2021-06-09] MEDS: Metoprolol Tartrate 25 MG TABLET PO (18:02)
--- NOTE | 2021-06-09 18:04 | PC.NURSE ---
patient sleeping, woke to verbal stimulus, pt afib on potline monitor running from mid 100s-125. no c/o pain or discomfort, iv antibiotics running per order, cardizem drip continues at 10, vitals stable, will continue to monitor.
--- NOTE | 2021-06-09 18:09 | PC.NURSE ---
lara patient/draining concentrated yellow urine
[2021-06-09 21:02] LABS: Glucose, Whole Blood 135 mg/dL (60-115)
[2021-06-09] MEDS: Atorvastatin Calcium 10 MG TABLET PO (21:28)
[2021-06-09] MEDS: Tamsulosin HCL 0.4 MG CAPSULE PO (21:28)
[2021-06-09] MEDS: dilTIAZem HCL 125 MG in 0.9 % Sodium Chloride 100 ML 10 MG IVCONT (21:28)
--- NOTE | 2021-06-09 22:23 | PC.NURSE ---
patient currently sleeping, cardizem drip running per order, integrated marketing intern intact, pt hr ranging from 90-120 afib on monitor, lara cath patient/draining, call forbes within reach, will continue to monitor.
[2021-06-10] VITALS (20 sets, daily range): BP systolic 86–114; BP diastolic 36–74; PULSE 66–115; RESP 16–25; TEMP 36.4–36.7; O2SAT 94–98
--- NOTE | 2021-06-10 02:10 | PC.NURSE ---
PT on cardizem drip with HR fluctuating between 90-110, dropping into the 80s occasionally. Provider notified. Plan is to give PO metoprolol and lower drip rate down to 5 mls/hr.
[2021-06-10] MEDS: Enoxaparin Sodium 100 MG/ML SYRINGE SUBCUT (02:16)
[2021-06-10] MEDS: Metoprolol Tartrate 25 MG TABLET PO ×4 (02:17→17:08)
[2021-06-10] MEDS: 0.9 % Sodium Chloride Flush 3 ML SYRINGE IVFLUSH ×4 (02:18→21:09)
--- NOTE | 2021-06-10 04:36 | PC.NURSE ---
PT's HR started to elevate to 100-130. Hospitalist agreed with plan to increase Cardizem drip back to 10 mL/hr.
--- NOTE | 2021-06-10 06:56 | PC.NURSE ---
PT HR fluctuating from 100 to 80 bpm. Cardizem drip lowered to 5 mL/hr. This RN did not give metoprolol due to low BP.
[2021-06-10 07:41] LABS: Basophils Absolute Auto 0.1 X10*3/uL (0.0-0.2); Basophils Percent Auto 0.2 % (0-2); Eosinophils Percent Auto 0.1 % (0-4); Hematocrit 34.2 % (42.0-52.0); Hemoglobin 11.2 g/dl (14.0-18.0); Imm Gran Abs Auto 0.53 X10*3/uL (0.00-0.03); Imm Gran Pct Auto 2.2 % (0.0-0.4); Lymphocytes Absolute Auto 0.6 X10*3/uL (1.2-4.9); Lymphocytes Percent Auto 2.3 % (20-40); MANUAL DIFF FLAG SCAN; Mean Corpuscular HGB Conc 32.7 g/dl (31.0-36.0); Mean Corpuscular Hemoglobin 29.2 pg (27.0-33.0); Mean Corpuscular Volume 89.1 fL (80.0-98.0); Mean Platelet Volume 11.6 fL (9.4-12.4); Monocytes Absolute Auto 1.2 X10*3/uL (0.1-1.2); Monocytes Percent Auto 5.1 % (2-11); Neutrophils Absolute Auto 21.5 x10*3/uL (2.0-8.3); Neutrophils Percent Auto 90.1 % (45-73); Platelet Count 165 X10*3/uL (160-400); Red Blood Count 3.84 X10*6/uL (4.60-5.80); SCAN SMEAR FLAG 1; White Blood Count 23.9 X10*3/uL (4.8-10.8)
[2021-06-10 07:53] LABS: Glucose, Whole Blood 221 mg/dL (60-115)
[2021-06-10 08:06] LABS: B Type Natriuretic Peptide 340 pg/mL (<100)
[2021-06-10 08:10] LABS: Magnesium 3.5 mg/dL (1.6-2.6); SLIDE REVIEW VERIFIED
[2021-06-10 08:28] LABS: Procalcitonin 1.57 ng/mL
[2021-06-10] MEDS: Finasteride 5 MG TABLET PO (09:40)
[2021-06-10] MEDS: Insulin Lispro 100 UNIT/ML 3 ML VIAL SUBCUT ×3 (09:40→21:09)
[2021-06-10] MEDS: dexAMETHasone sod phosphate 4 MG/ML VIAL 6 MG IVPUSH (09:40)
--- NOTE | 2021-06-10 10:37 | P.CNID_ITS ---
History of Present Illness Data of Consult Service Date: 06/09/21 Requesting physician: Delfina Noland Primary Care Provider: [facility] HPI Reason for consult: bacteremia,COVID He presents with weakness and chills He has had symptoms 10-14 days He has staph aureus bacteremia Review of Systems Verdana 4l Review of Systems: Yes all other systems are reviewed and Verdana 4d are negative [facility] Past Medical History Medical History (Updated 06/30/21 @ 11:13 by Candelario Rodriguez MD) Arthritis Bacteremia due to Gram-positive bacteria COVID-19 vaccine series completed Diabetes Elevated cholesterol Elevated prostate specific antigen [PSA] History of BPH HTN (hypertension) Morbid obesity Surgical History Surgical History No significant past surgical history Social History Social History Household Members: Spouse Housing: Apartment Are you a primary hourly caregiver to a significant other at home: No Do you presently have visiting nurse or other home services: No Alcohol intake: current Alcohol intake frequency: a few times a month Patient Tobacco Use Status: Former Tobacco user Tobacco use type: Cigar service: No Current occupational status: retired Meds Allergies Allergy/AdvReac Type Severity Reaction Status Date / Time No Known Allergies Allergy Verified 06/08/21 18:52 Active Medications: Current Medications Atorvastatin Calcium (Atorvastatin Calcium 10 Mg Tablet) 10 mg PO BEDTIME [facility] Last Admin: 06/09/21 21:28 Dose: 10 mg Documented by: Dexamethasone Sodium Phosphate (Dexamethasone Sod Phosphate 4 Mg/Ml Vial) 6 mg IVPUSH DAILY [facility] Last Admin: 06/10/21 09:40 Dose: 6 mg Documented by: Dextrose (Dextrose 50 % 25 Gm/50 Ml Vial) 25 gm IVPUSH Q15M PRN; Protocol PRN Reason: per Hypoglycemia Standing Ord. Enoxaparin Sodium (Enoxaparin Sodium 100 Mg/Ml Syringe) 100 mg SUBCUT Q12H [facility] Last Admin: 06/10/21 02:16 Dose: 100 mg Documented by: Finasteride (Finasteride 5 Mg Tablet) 5 mg PO DAILY [facility] Last Admin: 06/10/21 09:40 Dose: 5 mg Documented by: Glucose (Glucose Gel 15 Gm Gel..Gram.) 15 gm PO Q15M PRN; Protocol PRN Reason: per Hypoglycemia Standing Ord. Diltiazem HCl 125 mg/ Sodium (Chloride) 125 mls @ 0 mls/hr IVCONT .Q0M [facility]; Protocol Last Admin: 06/09/21 21:28 Dose: 10 mg/hr, 10 mls/hr Documented by: Diltiazem HCl 125 mg/ Sodium (Chloride) 125 mls @ 0 mls/hr IVCONT .Q0M [facility]; Protocol Vancomycin HCl 750 mg/ Sodium (Chloride) 265 mls @ 265 mls/hr IV Q24H [facility] Last Infusion: 06/09/21 19:12 Dose: Infused Documented by: Insulin Human Lispro (Insulin Lispro 100 Unit/Ml 3 Ml Vial) 0 unit SUBCUT QIDACHS [facility]; Protocol Last Admin: 06/10/21 09:40 Dose: 4 unit Documented by: Metoprolol Tartrate (Metoprolol Tartrate 25 Mg Tablet) 25 mg PO Q6H [facility]; Protocol Last Admin: 06/10/21 09:40 Dose: 25 mg Documented by: Pharmacy Consult (Consult Rx Perform Med Rec) 1 each MISCELLANE ONCE PRN PRN Reason: Consult order Pharmacy Consult (Consult Rx Vancomycin Dosing) 1 each MISCELLANE DAILY PRN PRN Reason: Consult order Sodium Chloride (0.9 % Sodium Chloride Flush 3 Ml Syringe) 3 ml IVFLUSH QSHIFT [facility] Last Admin: 06/10/21 09:39 Dose: 3 ml Documented by: Tamsulosin HCl (Tamsulosin Hcl 0.4 Mg Capsule) 0.4 mg PO BEDTIME [facility] Last Admin: 06/09/21 21:28 Dose: 0.4 mg Documented by: Home Medications Medication Instructions Recorded Confirmed Last Taken Type amlodipine 10 mg 10 mg PO DAILY 02/07/21 06/08/21 06/08/21 History tablet aspirin 81 mg 81 mg PO DAILY 02/07/21 06/08/21 06/08/21 History tablet,delayed release atorvastatin 10 10 mg PO BEDTIME 02/07/21 06/08/21 06/08/21 History mg tablet glipizide 10 mg 10 mg PO BID 02/07/21 06/08/21 06/08/21 History tablet lisinopril 40 mg 40 mg PO DAILY 02/07/21 06/08/21 06/08/21 History tablet metoprolol 100 mg PO BID 02/07/21 06/08/21 06/08/21 History tartrate 100 mg tablet pioglitazone 30 1 tab PO DAILY 06/08/21 06/08/21 06/08/21 History mg tablet triamcinolone 1 applic TOPICAL 06/08/21 06/08/21 Unknown History acetonide 0.1 % BID-TID topical cream Physical Exam Verdana 4l Vital Signs: Verdana 4d Verdana 4d Vital Signs: Verdana 4d Verdana 4Bd Last Vital Signs Verdana 4d Marketing Content Coordinator New 4d Marketing Content Coordinator New 4d Temp 97.8 F 06/10/21 10:12 Marketing Content Coordinator New 4d Pulse 74 06/10/21 10:12 Marketing Content Coordinator New 4d Resp 17 06/10/21 10:12 BP 92/43 L 06/10/21 10:12 Pulse Ox 95 06/10/21 10:12 BMI result Body Mass Index 31.1 Const: General: cooperative HENMT: Head: Yes normal to inspection Resp: Effort & Inspection: normal respiratory effort Cardio: Rate: regular rate Rhythm: regular rhythm GI: Palpation (GI): nontender Extrem: General: Yes normal to inspection Results Labs CBC & Chem 7: 07/02/21 05:25 07/02/21 15:45 Labs: Short CBC 06/10/21 Range/Units 07:25 WBC 23.9 H (4.8-10.8) X10*3/uL Hgb 11.2 L (14.0-18.0) g/dl Hct 34.2 L (42.0-52.0) % Plt Count 165 D (160-400) X10*3/uL Microbiology Microbiology Results: Microbiology 06/08/21 23:11 Blood - Venous Blood Culture - Preliminary Staphylococcus aureus 06/08/21 23:11 Blood - Venous Blood Culture - Preliminary Staphylococcus aureus 06/09/21 17:15 Blood - Venous Blood Culture - Preliminary Prelim: GPC Gram Stain only 06/09/21 17:10 Blood - Venous Blood Culture - Preliminary Gram positive cocci Assessment and Plan (1) Bacteremia due to Gram-positive bacteria: Status: Acute staph aureus concern over endocarditis no obvious source bacteremia,?skin Check echo Vancomycin (2) COVID-19: Status: Acute COVID Dexamethasone No Remdesivir,unknown duration No Baricitinib unless high flow
--- NOTE | 2021-06-10 11:46 | PC.NURSE ---
pt's dharmesh ([phone]) [place] [facility] [place].
[2021-06-10 12:01] LABS: Glucose, Whole Blood 228 mg/dL (60-115)
--- NOTE | 2021-06-10 12:03 | PM.PNCARD ---
Subjective Subjective Date of Service: 06/10/21 Principal diagnosis: Atrial fibrillation Interval history: Patient overnight has had now low blood pressure. Just had says having diarrhea but found to have large rectal bleed. Been getting Lovenox. Rate is well controlled with atrial fibrillation. However noted to have bacteremia. Kidney functions are still abnormal. He denies any cardiac symptoms. Blood pressure is on the lower side. Review of Systems Constitutional: Reports lethargy, Reports malaise and Reports weakness Cardiovascular: Reports no additional cardiovascular complaints Gastrointestinal: Reports diarrhea Genitourinary: Reports no additional male genitourinary complaints Reports system reviewed and no additional complaints, except as documented and Reports weakness Physical Exam Vital Signs: Last Vital Signs Temp 97.8 F 06/10/21 10:12 Pulse 74 06/10/21 10:12 Resp 17 06/10/21 10:12 BP 92/43 L 06/10/21 10:12 Pulse Ox 95 06/10/21 10:12 BMI result Body Mass Index 31.1 Const General: cooperative, alert, awake and ill appearing Nutritional Appearance: obese Orientation/consciousness: patient oriented x3 Neck Neck: Yes trachea midline, Yes supple and Yes no JVD Resp Effort & Inspection: decreased respiratory effort Auscultation: no rales and diminished lung sounds Cardio Jugular venous distension: no JVD Rhythm: abnormal rhythm irregularly irregular Heart sounds: S1 normal heart sound present and S2 normal heart sound present Neuro General: patient oriented x3 and no focal motor deficits Objective Labs and Meds Result diagrams: 06/10/21 07:25 06/09/21 08:01 Lab results: Laboratory Results - last 24 hr 06/09/21 06/09/21 06/09/21 12:18 16:35 20:49 WBC RBC Hgb Hct MCV MCH MCHC RDW Plt Count MPV Immature Gran % (Auto) Neut % (Auto) Lymph % (Auto) Buchanan % (Auto) Eos % (Auto) Baso % (Auto) Lymph # (Auto) Buchanan # (Auto) Eos # (Auto) Baso # (Auto) Abs Immat Gran (auto) Absolute Neuts (auto) Absolute Nucleated RBC Nucleated RBC % (auto) Smear Tech's Comments POC Glucose 79 86 135 H Magnesium B-Natriuretic Peptide Procalcitonin 06/10/21 06/10/21 06/10/21 07:25 07:25 07:25 WBC 23.9 H RBC 3.84 L Hgb 11.2 L Hct 34.2 L MCV 89.1 MCH 29.2 MCHC 32.7 RDW 15.0 Plt Count 165 D MPV 11.6 Immature Gran % (Auto) 2.2 H Neut % (Auto) 90.1 H Lymph % (Auto) 2.3 L Buchanan % (Auto) 5.1 Eos % (Auto) 0.1 Baso % (Auto) 0.2 Lymph # (Auto) 0.6 L Buchanan # (Auto) 1.2 Eos # (Auto) 0.0 Baso # (Auto) 0.1 Abs Immat Gran (auto) 0.53 H Absolute Neuts (auto) 21.5 H Absolute Nucleated RBC 0.000 Nucleated RBC % (auto) 0.0 Smear Tech's Comments VERIFIED POC Glucose Magnesium 3.5 H* B-Natriuretic Peptide 340 H Procalcitonin 06/10/21 06/10/21 06/10/21 07:25 07:48 11:57 WBC RBC Hgb Hct MCV MCH MCHC RDW Plt Count MPV Immature Gran % (Auto) Neut % (Auto) Lymph % (Auto) Buchanan % (Auto) Eos % (Auto) Baso % (Auto) Lymph # (Auto) Buchanan # (Auto) Eos # (Auto) Baso # (Auto) Abs Immat Gran (auto) Absolute Neuts (auto) Absolute Nucleated RBC Nucleated RBC % (auto) Smear Tech's Comments POC Glucose 221 H 228 H Magnesium B-Natriuretic Peptide Procalcitonin 1.57 Imaging Radiologist's impression: Impressions Pulmonary Perfusion Imaging 06/09/21 12:25 IMPRESSION: Low probability scan for pulmonary embolism. Progress Note: A&P Assessment and plan (1) Atrial fibrillation with rapid ventricular response: Status: Acute Assessment and Plan: Atrial fibrillation secondary to acute medical illness. Patient overall medical status has deteriorated. Blood pressure is on the lower side. Heart rate is better controlled. Appears to have now with large bowel movement with blood. No fever. However blood cultures positive for bacteremia. Also continues to have elevated creatinine. Overall clinical status is soft and borderline. May discontinue Lovenox as well as Cardizem drip. P.o. metoprolol which can be reduced if the blood pressure remains soft. Continue aggressive management of underlying medical condition. Trend H&H. Hydrate as necessary. Overall prognosis guarded. Fall Risk Details Current Medications: Current Medications Atorvastatin Calcium (Atorvastatin Calcium 10 Mg Tablet) 10 mg PO BEDTIME [facility] Last Admin: 06/09/21 21:28 Dose: 10 mg Documented by: Dexamethasone Sodium Phosphate (Dexamethasone Sod Phosphate 4 Mg/Ml Vial) 6 mg IVPUSH DAILY [facility] Last Admin: 06/10/21 09:40 Dose: 6 mg Documented by: Dextrose (Dextrose 50 % 25 Gm/50 Ml Vial) 25 gm IVPUSH Q15M PRN; Protocol PRN Reason: per Hypoglycemia Standing Ord. Enoxaparin Sodium (Enoxaparin Sodium 100 Mg/Ml Syringe) 100 mg SUBCUT Q12H [facility] Last Admin: 06/10/21 02:16 Dose: 100 mg Documented by: Finasteride (Finasteride 5 Mg Tablet) 5 mg PO DAILY [facility] Last Admin: 06/10/21 09:40 Dose: 5 mg Documented by: Glucose (Glucose Gel 15 Gm Gel..Gram.) 15 gm PO Q15M PRN; Protocol PRN Reason: per Hypoglycemia Standing Ord. Diltiazem HCl 125 mg/ Sodium (Chloride) 125 mls @ 0 mls/hr IVCONT .Q0M [facility]; Protocol Last Admin: 06/09/21 21:28 Dose: 10 mg/hr, 10 mls/hr Documented by: Diltiazem HCl 125 mg/ Sodium (Chloride) 125 mls @ 0 mls/hr IVCONT .Q0M [facility]; Protocol Vancomycin HCl 750 mg/ Sodium (Chloride) 265 mls @ 265 mls/hr IV Q24H [facility] Last Infusion: 06/09/21 19:12 Dose: Infused Documented by: Insulin Human Lispro (Insulin Lispro 100 Unit/Ml 3 Ml Vial) 0 unit SUBCUT QIDACHS [facility]; Protocol Last Admin: 06/10/21 09:40 Dose: 4 unit Documented by: Metoprolol Tartrate (Metoprolol Tartrate 25 Mg Tablet) 25 mg PO Q6H [facility]; Protocol Last Admin: 06/10/21 09:40 Dose: 25 mg Documented by: Pharmacy Consult (Consult Rx Perform Med Rec) 1 each MISCELLANE ONCE PRN PRN Reason: Consult order Pharmacy Consult (Consult Rx Vancomycin Dosing) 1 each MISCELLANE DAILY PRN PRN Reason: Consult order Sodium Chloride (0.9 % Sodium Chloride Flush 3 Ml Syringe) 3 ml IVFLUSH QSHIFT [facility] Last Admin: 06/10/21 09:39 Dose: 3 ml Documented by: Tamsulosin HCl (Tamsulosin Hcl 0.4 Mg Capsule) 0.4 mg PO BEDTIME [facility] Last Admin: 06/09/21 21:28 Dose: 0.4 mg Documented by: Time Spent With Patient Time: Total time spent is greater than 50% in coordination of care (as documented) at patient's floor/unit and/or counseling patient: Time with patient: 25 - 35 minutes Progress Note: Quality Stroke Does the patient have a stroke diagnosis?: No Procedures Date of Service Date of Service: 06/10/21
--- NOTE | 2021-06-10 12:12 | PC.NURSE ---
lg amt of rectal bleed noted, dr. eugene aware.
[2021-06-10] MEDS: 0.9 % Sodium Chloride 500 ML IV (12:30)
--- NOTE | 2021-06-10 13:20 | W.PM.CCCN ---
History of Present Illness Data of Consult Service Date: 06/10/21 Requesting physician: Delfina Noland Primary Care Provider: [facility] Reason for consult: UGI bleed Dr. Noland asked for my recommendations regarding Mr. Slade who became hypotensive after a black bowel movement. Briefly, the patient is a 76 yo M with a past medical history of obesity, hypertension, hyperlipidemia, diabetes, BPH, and arthritis. The pt presented to the hospital on Jun 08 with a chief complaint of generalized weakness x past few weeks, not feeling well, shortness of breath and dyspnea on exertion.? Sx gradually worsening.? Poor apetite.? Denied chest pain, palpitations, lightheadedness. dizziness. ?Complained of cough but no sputum production. ?Was vaccinated including a booster dose. In the ED, the patient was in Afib w RVR, Sat 94% on room air (baseline 98% on room air); blood pressure 107/48; bilateral rales and wheezing.? COVID-19 positive; CXR showed nonspecific increased bibasilar markings with blunting of both angles.? WBC 19, DDimer 3200, BUN/creat 91/2.7 (baseline about 20/1.1).? Trop 46, BNP 300. Tx with diltiazem, metoprolol, and moderate IVF and admitted to Medicine.? Remained in the ED because no beds. ?Put on full dose Lovenox.? Blood cx came back positive for Staph aureus.? Sensitivities pending.? On vanco.? Renal indices not signif improved with initial tx.? He was running hypotensive into the 80?s that night but yest and last night, BP was 100-120 systolic range.? Perfusion scan yest low probability. This morning BP dropped into 90s.? Hb was 11.2, down from 13.1.? Around noon had a large black BM.? HR 96, BP dropped to 86/36.? Remained awake, alert.? Started vol resusc.? Next BP up to 113/74.? Repeat labs and T&C. ?Hb 10.6, BUN/creat 124/2.1, lactate 2.6, alb 2.6. I looked at the patient in bed 7 in the ED.? When I went into his room, he was in the bathroom sitting on the toilet with the door closed.? I had a brief conversation, and when the nurse went to pull up his michelle, he asked her why she was hurrying him.? He was breathing easy on room air, with completely normal mental status. IMPRESSION: 1. Had a large GI bleed, dropped his Hb 2?g.? Organ perfusion looks adequate.? No need for transfusion yet, but I would give him some albumin. ?And high dose PPI.? GI consult. 2. ROBIN.? He does not normally run a high renal ratio, so his admitting numbers are highly suggestive of hypovolemia.? And the fact that his creat has not improved more than it has is concerning.? Realizing the pressing need to keep him as dry as possible to forestall COVID resp failure, an echo and a urine sodium might help guide fluid management. 3. Afib w RVR.? Current tx has his rate reasonably well controlled. 4. COVID.? Would continue steroids. ?Would also give Vit D 50 mg, Vit C 1000 mg bid, Pepcid 20 mg daily, Zinc 220 mg bid, and melatonin 6mg qhs.? Given his DDimer, I would also suggest a duplex scan of his LEs, given the high risk. [No need for admission to ICU at this time.]] [facility] Past Medical History Medical History (Updated 06/10/21 @ 10:40 by Shivani Priest MD) Arthritis Bacteremia due to Gram-positive bacteria COVID-19 vaccine series completed Diabetes Elevated cholesterol Elevated prostate specific antigen [PSA] History of BPH HTN (hypertension) Surgical History Surgical History No significant past surgical history Social History Social History Household Members: Spouse Housing: Apartment Are you a primary child care worker to a significant other at home: No Do you presently have visiting nurse or other home services: No Alcohol intake: current Alcohol intake frequency: a few times a month Patient Tobacco Use Status: Former Tobacco user Tobacco use type: Cigar Smoked in Last 30 Days: No Use of substances other than those prescribed or required for medical reasons: No Have you been hit, kicked, punched, or otherwise hurt by someone within the past year? If so, by whom?: No Do you feel safe in your current relationship?: Yes Is there a partner from a previous relationship who is making you feel unsafe now?: No Are you made to feel afraid or neglected: No Spiritual Healthcare Practices: none per patient Yarsanism Healthcare Practices: none per patient Cultural Healthcare Practices: none per patient Advance Directives: No Advance Directives Information Provided: No Do you have thoughts of harming others: None Do you have a plan to hurt others: No Plan Recently lost weight without trying: No Eating poorly because of decreased appetite: No Poor oral hygiene: No service: No Current occupational status: [employer] Allergies Allergy/AdvReac Type Severity Reaction Status Date / Time No Known Allergies Allergy Verified 06/08/21 18:52 Active Medications: Current Medications Atorvastatin Calcium (Atorvastatin Calcium 10 Mg Tablet) 10 mg PO BEDTIME [facility] Last Admin: 06/09/21 21:28 Dose: 10 mg Documented by: Dextrose (Dextrose 50 % 25 Gm/50 Ml Vial) 25 gm IVPUSH Q15M PRN; Protocol PRN Reason: per Hypoglycemia Standing Ord. Finasteride (Finasteride 5 Mg Tablet) 5 mg PO DAILY [facility] Last Admin: 06/10/21 09:40 Dose: 5 mg Documented by: Glucose (Glucose Gel 15 Gm Gel..Gram.) 15 gm PO Q15M PRN; Protocol PRN Reason: per Hypoglycemia Standing Ord. Vancomycin HCl 750 mg/ Sodium (Chloride) 265 mls @ 265 mls/hr IV Q24H [facility] Last Infusion: 06/09/21 19:12 Dose: Infused Documented by: Sodium Chloride (Ns) 500 mls @ 500 mls/hr IV .Q1H [facility] Stop: 06/10/21 13:29 Insulin Human Lispro (Insulin Lispro 100 Unit/Ml 3 Ml Vial) 0 unit SUBCUT QIDACHS [facility]; Protocol Last Admin: 06/10/21 09:40 Dose: 4 unit Documented by: Metoprolol Tartrate (Metoprolol Tartrate 25 Mg Tablet) 25 mg PO Q6H [facility]; Protocol Last Admin: 06/10/21 09:40 Dose: 25 mg Documented by: Pantoprazole Sodium (Pantoprazole Sodium 40 Mg/10 Ml Vial) 80 mg IVPUSH ONCE ONE Stop: 06/10/21 12:30 Pharmacy Consult (Consult Rx Perform Med Rec) 1 each MISCELLANE ONCE PRN PRN Reason: Consult order Pharmacy Consult (Consult Rx Vancomycin Dosing) 1 each MISCELLANE DAILY PRN PRN Reason: Consult order Sodium Chloride (0.9 % Sodium Chloride Flush 3 Ml Syringe) 3 ml IVFLUSH QSHIFT [facility] Last Admin: 06/10/21 09:39 Dose: 3 ml Documented by: Tamsulosin HCl (Tamsulosin Hcl 0.4 Mg Capsule) 0.4 mg PO BEDTIME [facility] Last Admin: 06/09/21 21:28 Dose: 0.4 mg Documented by: Home Medications Medication Instructions Recorded Confirmed Last Taken Type amlodipine 10 mg tablet 10 mg PO DAILY 02/07/21 06/08/21 06/08/21 History aspirin 81 mg tablet,delayed 81 mg PO DAILY 02/07/21 06/08/21 06/08/21 History release atorvastatin 10 mg tablet 10 mg PO BEDTIME 02/07/21 06/08/21 06/08/21 History glipizide 10 mg tablet 10 mg PO BID 02/07/21 06/08/21 06/08/21 History lisinopril 40 mg tablet 40 mg PO DAILY 02/07/21 06/08/21 06/08/21 History metoprolol tartrate 100 mg tablet 100 mg PO BID 02/07/21 06/08/21 06/08/21 History pioglitazone 30 mg tablet 1 tab PO DAILY 06/08/21 06/08/21 06/08/21 History triamcinolone acetonide 0.1 % 1 applic TOPICAL BID-TID 06/08/21 06/08/21 Unknown History topical cream Physical Exam Vital Signs: Vital Signs: Last Vital Signs Temp 97.6 F 06/10/21 12:12 Pulse 96 06/10/21 12:33 Resp 16 06/10/21 12:33 BP 86/36 L 06/10/21 12:33 Pulse Ox 94 06/10/21 12:12 BMI result Body Mass Index 31.1 Results Labs CBC & Chem 7: 06/10/21 13:26 06/10/21 13:27 Labs: Short CBC 06/10/21 Range/Units 07:25 WBC 23.9 H (4.8-10.8) X10*3/uL Hgb 11.2 L (14.0-18.0) g/dl Hct 34.2 L (42.0-52.0) % Plt Count 165 D (160-400) X10*3/uL Microbiology Microbiology Results: Microbiology 06/08/21 23:11 Blood - Venous Blood Culture - Preliminary Staphylococcus aureus 06/08/21 23:11 Blood - Venous Blood Culture - Preliminary Staphylococcus aureus 06/09/21 17:15 Blood - Venous Blood Culture - Preliminary Prelim: GPC Gram Stain only 06/09/21 17:10 Blood - Venous Blood Culture - Preliminary Gram positive cocci
--- NOTE | 2021-06-10 13:34 | PC.NURSE ---
larg amt of blood in toilet from bm per pct.
[2021-06-10 13:39] LABS: Hematocrit 32.1 % (42.0-52.0); Hemoglobin 10.6 g/dl (14.0-18.0); Mean Corpuscular Hemoglobin 29.6 pg (27.0-33.0); Mean Corpuscular Volume 89.7 fL (80.0-98.0); Mean Platelet Volume 11.4 fL (9.4-12.4); Platelet Count 176 X10*3/uL (160-400); Red Blood Count 3.58 X10*6/uL (4.60-5.80); Red Cell Distribution Width 15.1 % (11.0-16.0); White Blood Count 26.7 X10*3/uL (4.8-10.8)
[2021-06-10 13:39] LABS: OBS1 POSITIVE (NEGATIVE)
[2021-06-10 13:40] LABS: OBS Int Ctl Valid YES
[2021-06-10 13:53] LABS: Alanine Aminotransferase 50 U/L (0-40); Albumin Level 2.6 g/dL (3.5-5.0); Alkaline Phosphatase 117 U/L (39-117); Aspartate Amino Transferase 81 U/L (5-37); Bilirubin Direct 0.6 mg/dL (0.0-0.5); Bilirubin Total 0.8 mg/dL (0.0-1.0); Total Protein 5.1 g/dL (6.5-8.0)
[2021-06-10 13:55] LABS: Lactic Acid 2.6 mmol/L (0.5-2.0)
[2021-06-10 13:56] LABS: Anion Gap 17 (12-20); Blood Urea Nitrogen 124 mg/dL (9-16); Calcium 7.2 mg/dL (8.4-10.2); Carbon Dioxide 19 mmol/L (22-29); Chloride 98 mmol/L (96-108); Cholesterol 103 mg/dL; Estimated Glomerular Filt Rate 30; Glucose Random 232 mg/dL (60-115); HDL Cholesterol 10 mg/dL; LDL Cholesterol Calculated 60 mg/dl; Potassium 4.3 mmol/L (3.3-5.1); Sodium 130 mmol/L (135-145); Triglycerides 167 mg/dL
[2021-06-10] MEDS: Pantoprazole Sodium 40 MG/10 ML VIAL 80 MG IVPUSH (14:21)
[2021-06-10 15:03] LABS: Glucose, Whole Blood 259 mg/dL (60-115)
--- NOTE | 2021-06-10 15:16 | P.PNIM_ITS ---
Subjective Subjective Date of Service: 06/11/21 Interval History: Offered no acute complaints this morning, denied chest pain, no shortness of breath, no abdominal pain, no nausea, no vomiting, around noon noted to have large black colored stool, with significant drop in blood pressure, remained awake alert. Review of Systems Review of Systems: Yes all other systems are reviewed and are negative Physical Exam Vital Signs: Vital Signs: Last Vital Signs Temp 97.7 F 06/10/21 14:48 Pulse 90 06/10/21 14:48 Resp 25 H 06/10/21 14:48 BP 98/47 L 06/10/21 14:48 Pulse Ox 96 06/10/21 14:48 BMI result Body Mass Index 31.1 General awake alert, no acute distress. Neck supple, no JVD. CVS? irregular rate rhythm, Respiratory lungs clear,,no respiratory distress, no wheeze. Gastrointestinal abdomen soft, nontender, obese, bowel sounds audible Extremities no edema. Neuro nonfocal Skin no rash Psych appropriate affect Objective Data Active Medications Atorvastatin Calcium (Atorvastatin Calcium 10 Mg Tablet) 10 mg PO BEDTIME [facility] Last Admin: 06/09/21 21:28 Dose: 10 mg Documented by: MAXIMO Dextrose (Dextrose 50 % 25 Gm/50 Ml Vial) 25 gm IVPUSH Q15M PRN; Protocol PRN Reason: per Hypoglycemia Standing Ord. Finasteride (Finasteride 5 Mg Tablet) 5 mg PO DAILY [facility] Last Admin: 06/10/21 09:40 Dose: 5 mg Documented by: KRISTOPHER Glucose (Glucose Gel 15 Gm Gel..Gram.) 15 gm PO Q15M PRN; Protocol PRN Reason: per Hypoglycemia Standing Ord. Pantoprazole Sodium 80 mg/ (Sodium Chloride) 100 mls @ 10 mls/hr IV .Q10H [facility] Diltiazem HCl 125 mg/ Sodium (Chloride) 125 mls @ 0 mls/hr IVCONT .Q0M [facility]; Protocol Albumin Human (Kedbumin 25 %) 100 mls @ 100 mls/hr IV Q1H [place] Stop: 06/10/21 17:14 Vancomycin HCl 1,500 mg/ (Sodium Chloride) 500 mls @ 333.333 mls/hr IV ONCE ONE Stop: 06/10/21 18:29 Vancomycin HCl 1,000 mg/ (Sodium Chloride) 270 mls @ 270 mls/hr IV Q24H [facility] Insulin Human Lispro (Insulin Lispro 100 Unit/Ml 3 Ml Vial) 0 unit SUBCUT QIDACHS [facility]; Protocol Last Admin: 06/10/21 14:14 Dose: Not Given Documented by: KRISTOPHER Non-Admin Reason: NPO Metoprolol Tartrate (Metoprolol Tartrate 25 Mg Tablet) 25 mg PO Q6H [facility]; Protocol Last Admin: 06/10/21 14:21 Dose: 25 mg Documented by: KRISTOPHER Pharmacy Consult (Consult Rx Perform Med Rec) 1 each MISCELLANE ONCE PRN PRN Reason: Consult order Pharmacy Consult (Consult Rx Vancomycin Dosing) 1 each MISCELLANE DAILY PRN PRN Reason: Consult order Sodium Chloride (0.9 % Sodium Chloride Flush 3 Ml Syringe) 3 ml IVFLUSH QSHIFT [facility] Last Admin: 06/10/21 09:39 Dose: 3 ml Documented by: KRISTOPHER Tamsulosin HCl (Tamsulosin Hcl 0.4 Mg Capsule) 0.4 mg PO BEDTIME [facility] Last Admin: 06/09/21 21:28 Dose: 0.4 mg Documented by: MAXIMO Labs CBC & Chem 7: 06/11/21 06:41 06/10/21 13:27 Labs: Laboratory Results - last 24 hr 06/09/21 06/09/21 06/10/21 16:35 20:49 07:25 MCV 89.1 MCH 29.2 MCHC 32.7 RDW 15.0 Plt Count 165 D MPV 11.6 Immature Gran % (Auto) 2.2 H Neut % (Auto) 90.1 H Lymph % (Auto) 2.3 L Mccreary % (Auto) 5.1 Eos % (Auto) 0.1 Baso % (Auto) 0.2 Lymph # (Auto) 0.6 L Mccreary # (Auto) 1.2 Eos # (Auto) 0.0 Baso # (Auto) 0.1 Abs Immat Gran (auto) 0.53 H Absolute Neuts (auto) 21.5 H Absolute Nucleated RBC 0.000 Nucleated RBC % (auto) 0.0 Smear Tech's Comments VERIFIED Anion Gap Estim Creat Clear Calc Estimated GFR POC Glucose 86 135 H Random Glucose Lactic Acid Calcium Magnesium Total Bilirubin Direct Bilirubin AST ALT Alkaline Phosphatase B-Natriuretic Peptide Total Protein Albumin Triglycerides Cholesterol LDL Cholesterol, Calc HDL Cholesterol Procalcitonin Stool Occult Blood Blood Type Antibody Screen 06/10/21 06/10/21 06/10/21 07:25 07:25 07:25 MCV MCH MCHC RDW Plt Count MPV Immature Gran % (Auto) Neut % (Auto) Lymph % (Auto) Mccreary % (Auto) Eos % (Auto) Baso % (Auto) Lymph # (Auto) Mccreary # (Auto) Eos # (Auto) Baso # (Auto) Abs Immat Gran (auto) Absolute Neuts (auto) Absolute Nucleated RBC Nucleated RBC % (auto) Smear Tech's Comments Anion Gap Estim Creat Clear Calc Estimated GFR POC Glucose Random Glucose Lactic Acid Calcium Magnesium 3.5 H* Total Bilirubin Direct Bilirubin AST ALT Alkaline Phosphatase B-Natriuretic Peptide 340 H Total Protein Albumin Triglycerides Cholesterol LDL Cholesterol, Calc HDL Cholesterol Procalcitonin 1.57 Stool Occult Blood Blood Type Antibody Screen 06/10/21 06/10/21 06/10/21 07:48 11:57 13:26 MCV 89.7 MCH 29.6 MCHC 33.0 RDW 15.1 Plt Count 176 MPV 11.4 Immature Gran % (Auto) Neut % (Auto) Lymph % (Auto) Mccreary % (Auto) Eos % (Auto) Baso % (Auto) Lymph # (Auto) Mccreary # (Auto) Eos # (Auto) Baso # (Auto) Abs Immat Gran (auto) Absolute Neuts (auto) Absolute Nucleated RBC 0.000 Nucleated RBC % (auto) 0.0 Smear Tech's Comments Anion Gap Estim Creat Clear Calc Estimated GFR POC Glucose 221 H 228 H Random Glucose Lactic Acid Calcium Magnesium Total Bilirubin Direct Bilirubin AST ALT Alkaline Phosphatase B-Natriuretic Peptide Total Protein Albumin Triglycerides Cholesterol LDL Cholesterol, Calc HDL Cholesterol Procalcitonin Stool Occult Blood Blood Type Antibody Screen 06/10/21 06/10/21 06/10/21 13:26 13:26 13:26 MCV MCH MCHC RDW Plt Count MPV Immature Gran % (Auto) Neut % (Auto) Lymph % (Auto) Mccreary % (Auto) Eos % (Auto) Baso % (Auto) Lymph # (Auto) Mccreary # (Auto) Eos # (Auto) Baso # (Auto) Abs Immat Gran (auto) Absolute Neuts (auto) Absolute Nucleated RBC Nucleated RBC % (auto) Smear Tech's Comments Anion Gap Estim Creat Clear Calc Estimated GFR POC Glucose Random Glucose Lactic Acid 2.6 H* Calcium Magnesium Total Bilirubin 0.8 Direct Bilirubin 0.6 H AST 81 H ALT 50 H Alkaline Phosphatase 117 D B-Natriuretic Peptide Total Protein 5.1 L D Albumin 2.6 L D Triglycerides Cholesterol LDL Cholesterol, Calc HDL Cholesterol Procalcitonin Stool Occult Blood Blood Type O Positive Antibody Screen NEGATIVE 06/10/21 06/10/21 06/10/21 13:27 13:28 14:55 MCV MCH MCHC RDW Plt Count MPV Immature Gran % (Auto) Neut % (Auto) Lymph % (Auto) Mccreary % (Auto) Eos % (Auto) Baso % (Auto) Lymph # (Auto) Mccreary # (Auto) Eos # (Auto) Baso # (Auto) Abs Immat Gran (auto) Absolute Neuts (auto) Absolute Nucleated RBC Nucleated RBC % (auto) Smear Tech's Comments Anion Gap 17 Estim Creat Clear Calc 37.0 Estimated GFR 30 POC Glucose 259 H Random Glucose 232 H D Lactic Acid Calcium 7.2 L Magnesium Total Bilirubin Direct Bilirubin AST ALT Alkaline Phosphatase B-Natriuretic Peptide Total Protein Albumin Triglycerides 167 Cholesterol 103 D LDL Cholesterol, Calc 60 HDL Cholesterol 10 D Procalcitonin Stool Occult Blood POSITIVE Blood Type Antibody Screen Microbiology Microbiology Results: Microbiology 06/08/21 23:11 Blood Culture - Preliminary Blood - Venous Staphylococcus aureus 06/08/21 23:11 Blood Culture - Preliminary Blood - Venous Staphylococcus aureus 06/09/21 17:15 Blood Culture - Preliminary Blood - Venous Prelim: GPC Gram Stain only 06/09/21 17:10 Blood Culture - Preliminary Blood - Venous Gram positive cocci Assessment and Plan (1) Hypotension: Status: Acute (2) GI bleed: Status: Acute (3) Bacteremia due to Gram-positive bacteria: Status: Acute (4) Atrial fibrillation with rapid ventricular response: Status: Acute (5) Acute renal failure: Status: Acute (6) COVID-19: Status: Acute (7) Weakness: Status: Acute Assessment and Plan: 76-year-old male with a past medical history of hypertension, hyperlipidemia, diabetes, BPH, arthritis presented the hospital today with a chief complaint of generalized weakness.? Noted to have covid 19/atrial fibrillation and acute kidney injury Upper GI bleed with dark black stool Noted to have 1 episode of large black stool this afternoon without associated abdominal pain, nausea or vomiting Will DC Lovenox and IV Decadron start IV Protonix drip Repeat CBC, type and screen, obtain GI consult Hypotension Likely due to GI bleed, IV Cardizem and metoprolol DC Cardizem drip, give normal saline bolus and albumin Transfuse if noted to have drop in hematocrit < 30 Obtained ICU consult, case d/w Dr Guillaume,low threshold to transfer to ICU if patient become hemodynamically unstable for pressors called informed about change in clinical condition. Gram-positive bacteremia Placed on IV vancomycin, check echo UA unremarkable, chest x-ray showed basilar markings question infiltrate but less likely Elevated LFTs likely due to COVID, stable BP, hold CT abdomen due to ROBIN Follow clinical course and check CT abdomen without contrast Leukocytosis likely due to bacteremia and IV steroid, follow CBC and final bc COVID-19 pneumonia: No significant hypoxia, DC IV Decadron due to GI bleed Seen by ID not a candidate for remdesivir due to unknown duration and no be ricitinib since not on high-flow Patient has been vaccinated in the past including booster dose. Acute hypoxic respiratory failure due to COVID-19 Stable Continue O2 support, wean as tolerated New onset AFib with rapid ventricular response:?? Patient denies chest pain no palpitation tele monitor showed persistent atrial fibrillation rate controlled DC Cardizem drip, continue metoprolol 25 q.6 hours reduced dose of noted to have persistent hypotension Echocardiogram pending Seen by Cardiology case discussed with Dr. Rodriguez, he agree with above treatment plan Elevated troponins: Troponin trending up? Likely in the setting of demand ischemia with atrial fibrillation and rapid ventricular rate and robin, Patient denies any chest pain.? EKG with nonspecific ST abnormality follow echo lovenox held due to significant Gi bleed Elevated D-dimer:? Multifactorial.? Likely due to COVID infection, V/Q scan showed low probability DC Lovenox due to GI bleed ROBIN:? Creatinine on admission 2.76 improved to 2.15 after IV hydration baseline creatinine 1.1,avoid nephrotoxins follow BMP closely renal consult if worsening renal function Hypermagnesemia: Likely in the setting of renal insufficiency Will continue to monitor.? Diabetes: Hold home oral hypoglycemic agents. Elevated sugars, continue insulin sliding scale /npo due to GI bleed History of BPH: Continue home finasteride,and tamsulosin. ? Hyperlipidemia: Continue? statin DVT prophylaxis: DC Lovenox due to GI bleed placed on compression boots Code status: Full code Quality Stroke Does the patient have a stroke diagnosis?: No VTE Prior VTE?: No VTE Risk Level:: Medical - moderate - high VTE Device Contraindication: Treatment Not Indicated VTE Drug Contraindication: Treatment Not Indicated
--- NOTE | 2021-06-10 15:17 | PC.NURSE ---
rn to rn given to suresh pt aware of plan of care.
--- NOTE | 2021-06-10 15:18 | HE.PHANOTE ---
First dose of Vancomycin given was 750 mg that is only 7 mg/kg. Patient is 104 kg therefore requires a higher loading dose. Will give a one time dose Vancomycin 1500 mg (14.4 mg/kg). Patient's renal function has improved with SCr decreases from 2.56 to 2.15. Will increase daily dose to Vancomycin 1000 mg Q24H. Pharmacy will continue to monitor renal function daily and adjust if appropriate. Trough to be drawn 06/12 @ 1500. Kiara RushD
[2021-06-10 15:34] LABS: Reflex Lactate? Lactic Acid Added
[2021-06-10] MEDS: dilTIAZem HCL 125 MG in 0.9 % Sodium Chloride 100 ML IVCONT (15:40)
[2021-06-10] MEDS: Albumin Human 25 % 100 ML IV (15:40)
[2021-06-10] MEDS: Pantoprazole Sodium 80 MG in 0.9 % Sodium Chloride 80 ML 10 MG IV (15:46)
[2021-06-10] MEDS: Albumin Human 25 % 100 ML 200 ML IV (15:54)
[2021-06-10 16:23] LABS: Glucose, Whole Blood 281 mg/dL (60-115)
[2021-06-10 16:47] LABS: ~Lactic Acid-LAB USE ONLY 1.4 mmol/L (0.5-2.0)
[2021-06-10] MEDS: vancomycin HCL 1,500 MG in 0.9 % Sodium Chloride 500 ML 333.33 MG IV (17:07)
[2021-06-10 18:32] LABS: Hemoglobin 7.1 g/dl (14.0-18.0)
[2021-06-10 18:33] LABS: Hematocrit 21.1 % (42.0-52.0)
[2021-06-10 20:10] LABS: Glucose, Whole Blood 298 mg/dL (60-115)
[2021-06-10] MEDS: Atorvastatin Calcium 10 MG TABLET PO (21:09)
[2021-06-10] MEDS: Tamsulosin HCL 0.4 MG CAPSULE PO (21:09)
[2021-06-11] VITALS (50 sets, daily range): BP systolic 59–133; BP diastolic 31–80; PULSE 78–145; RESP 13–25; TEMP 32.1–36.8; O2SAT 90–98; BMI 38.2
--- NOTE | 2021-06-11 00:45 | MHC.PIE ---
P.LOW BP,CONTINUED RECTAL BLEED I.MANUAL BP 84/44.PT CONT WITH MEDIUM AMT OF DARK RED BLOOD PER RECTUM.MENTATING WELL.REMAINS AFIB,HR 90'S.O2 ON AT 4L,SAT 97%,SL BARRERA. UPDATED.STAT CBC ORDERED AND PT TO BE EVALUATED BY ICU FOR TRANSFER E.CONT TO MONITOR
[2021-06-11 01:07] LABS: Basophils Percent Auto 0.1 % (0-2); Hemoglobin 7.8 g/dl (14.0-18.0); Imm Gran Abs Auto 0.67 X10*3/uL (0.00-0.03); Imm Gran Pct Auto 2.9 % (0.0-0.4); Lymphocytes Absolute Auto 0.8 X10*3/uL (1.2-4.9); Lymphocytes Percent Auto 3.4 % (20-40); MANUAL DIFF FLAG SCAN; Mean Corpuscular HGB Conc 33.9 g/dl (31.0-36.0); Mean Corpuscular Hemoglobin 30.4 pg (27.0-33.0); Mean Corpuscular Volume 89.5 fL (80.0-98.0); Mean Platelet Volume 11.7 fL (9.4-12.4); Monocytes Absolute Auto 1.3 X10*3/uL (0.1-1.2); Monocytes Percent Auto 5.6 % (2-11); Neutrophils Absolute Auto 20.2 x10*3/uL (2.0-8.3); Platelet Count 110 X10*3/uL (160-400); Red Blood Count 2.57 X10*6/uL (4.60-5.80); Red Cell Distribution Width 15.4 % (11.0-16.0); SCAN SMEAR FLAG 1; White Blood Count 22.9 X10*3/uL (4.8-10.8)
[2021-06-11 01:27] LABS: SLIDE REVIEW VERIFIED
[2021-06-11] MEDS: Pantoprazole Sodium 80 MG in 0.9 % Sodium Chloride 80 ML 10 MG IV ×3 (01:30→20:04)
--- NOTE | 2021-06-11 01:30 | PC.NURSE ---
PT EVALUATED BY ICU AND TRANSFERRED TO 262 VIA BED.
--- NOTE | 2021-06-11 01:41 | PM.EVENT ---
Event Note Date of Service: 06/11/21 Event Note: GI bleed: pt had few more episodes of GI bleed. Post 2uPRBC- Hgb improved form 7.1 to 7.8 ; Hypotension: Around 1:15AM pt became hypotensive. Spoke to ICU team; who evaluated pt and accepted to ICU for higher level of care.
[2021-06-11] MEDS: Digoxin 0.5 MG/2 ML AMPUL 0.25 MG IVPUSH ×2 (03:10→05:21)
[2021-06-11] MEDS: Protamine Sulfate 50 MG/5 ML VIAL 25 MG IV (03:45)
[2021-06-11 04:15] LABS: Hematocrit 27.3 % (42.0-52.0); Hemoglobin 9.2 g/dl (14.0-18.0)
[2021-06-11 04:21] LABS: INTERNATIONAL NORM RATIO 1.1 (0.9-1.1); Prothrombin Time 12.9 SEC (9.9-13.0)
[2021-06-11 04:23] LABS: Partial Thromboplastin Time 26.2 SEC (24.1-38.0)
--- NOTE | 2021-06-11 04:35 | PM.CCHP ---
History of Present Illness Date of Service: 06/11/21 <MURPHY Monroe - Last Filed: 06/11/21 23:18> Attending physician on admission: Napoleon Guillaume <MURPHY Monroe - Last Filed: 06/11/21 23:18> Chief Complaint: GI bleed and hypotension <MURPHY Monroe - Last Filed: 06/11/21 23:18> HPI: ?76-year-old with past history of hypertension, hyperlipidemia, diabetes, BPH, arthritis, obesity who was initially admitted on June 08 of this year due to generalized weakness for the past couple of weeks along with shortness of breath on exertion which was getting worse over time, poor p.o. intake seen in the ER were he was tested for COVID-19 and he resulted to be positive despite of the fact that the patient had been vaccinated including a booster dose, patient's O2 sat at the time was 94% on room air, heart rate showed atrial fibrillation with rapid ventricular response, chest x-ray had shown nonspecific increased bibasilar markings with blunting of both diaphragmatic angles, the [place] [address], D-dimer of 32,000 and creatinine of 2.7 (baseline 1.1). ?Patient had been treated with IV fluids, beta-blockers and calcium channel blockers, initially placed on full-dose Lovenox (100mg) given the high D-dimer but a VQ scan revealed low probability of a PE, the last dose of this drug administration was on the of this month at 2 am.? Subsequent blood culture results came back positive for Staph aureus with pending sensitivities, he was placed on vancomycin at renally adjusted dose given his renal derangement. During the afternoon, the patient had been seen by Dr. Adam hansen given that the patient had a decrease in his blood pressure with evidence of large GI bleed and decrease of his hemoglobin by 2 and have g per dL however had adequate organ perfusion and other than recommending albumin, ppi GI consult note transfer was granted to the ICU at the time. ?Reportedly throughout the evening the patient had had repeated episodes of maroon stools with blood pressure and you were between 90 and 100 systolic and with intermittent episodes of AFib with RVR.? Given the low blood pressure, the patient did not receive his last metoprolol. About 130 in the morning I was asked to see the patient given recurrent hypotension and concern for ongoing GI bleed.? Patient response to basic commands, his answers to most of my questions are not fully adequate but is able to hold a conversation.? Currently denies any dizziness or chest pain, shortness of breath, he does feel tired. Current lab work shows a white count 22.9, H&H of 7.8 and 23 which is improved from this afternoon at 7.1 and 21.? Creatinine also appears improved from prior baseline currently at 2.15. ROS:? As above otherwise I think is unreliable.? Unable to answer. Past Medical History:? As above Past Surgical History:? As above Family history: ?As above Social History:? Reports drinking beer, does not quantify.? Admits to tobacco consumption in the past, denies drugs. CODE STATUS:? Full code Allergies: ?No known drug allergies Home Medications:? Please see [facility] rec PHYSICAL EXAM: VS: ?121/46, heart rate 97, respirations 24, O2 sat 96% on 3 L nasal cannula, core temperature 98.1 General:? Alert oriented x3 no acute distress.? Speaking full sentences. Following all commands. Skin: old leg scars, other Intact, no lesions, edema, erythema, clubbing or cyanosis.? No ulcers. HEENT:? Head is normocephalic, atraumatic, pupils equal round reactive to light accommodation bilaterally.? Extraocular movements appear intact.? Buccal mucosa is moist, Neck is supple without lymphadenopathy. Cardiac:? Irregularly irregular rate 110 beats per minute on average, no gallops or murmurs Pulmonary:? Coarse lung sounds bilaterally with diminished lung sounds at the bases, no crackles or rales, no rhonchi. Abdomen:? Protuberant, positive bowel sounds in all 4 quadrants.? Distended, caput medusa veins, Soft, nontender, no rebound or guarding.? Musculoskeletal:? Moving all 4 extremities upon request a major joints, there is no crepitus or tenderness.? The strength is 5/5 bilaterally and throughout all 4 extremities.? There is no leg edema , no calf tenderness , no leg asymmetry.? Gait not assessed at this point. Neurologic:? As above, cranial nerves 2-12 are grossly intact.? No focal deficits noted. Motor strength as above.? Vascular:? 2+ pulses upper and lower extremities distally. SIGNIFICANT LABORATORY DATA:? As above? REVIEW OF IMAGES: Nuclear Scan low prob PE. CXR as above EKG REVIEW: ?EKG from June 08, 2021 shows AFib with RVR, nonspecific ST and T-wave abnormalities in the lateral leads.? No comparison available. ASSESSMENT AND PLAN: 1. Acute lower GI bleed 2. Intermittent Hypotension due to the above , Afib and RVR without evidence of hemorrhagic shock 3. Leukocytosis in the setting of current infection and steroid intake 4. Improving acute kidney injury due to hypovolemia 5. Hypoalbuminemia 6. Atrial fibrillation with RVR multifactorial 7. COVID-19 infection 8. Staph aureus bacteremia with unclear source currently on vancomycin Transferred to ICU, monitor blood pressure, I do not think he needs pressors at this point, I would rather to keep him is slightly hypotensive to avoid brisk bleeding, continue with IV ppi, will consider protamine sulfate given the likelihood of Lovenox extended half-life in the setting of renal dysfunction, will order 1 more unit of packed red blood cells.? Dr. Corral did communicate the current patient's status with Dr. Mae the yardage tufting machine operator on-call who will plan to perform a scope procedure early in the morning.? Will order small doses of digoxin to try to control his heart rate, hold Proscar and beta-jose, will continue to hold diltiazem.? Continue with vancomycin, repeat labs in the morning. Patient has slight lower extremity edema but it is not asymmetric, and ultrasound is to be considered, he may benefit from an echo to further assess his cardiac function and volume status. 0300 am patient had a large maroon bowel movement, remained hypotensive in the mid to low 80s with heart rate in the 110s, not diaphoretic, not hypoxic.? Given the ongoing bleeding and the concern for Lovenox extended T half-life, based on administration of this medication over 12 hours I ordered the lowest dose of 0.5 mg per mg of Lovenox which roughly equals to 25 mg IV x1 with epinephrine and the crash car at bedside.? The patient received a full dose which was mixed with 50 cc NS administered over half an hour without any issues. 0400 Rechecked H&H however shows significant improvement at 9.2 and 27.3 respectively.? Normal coagulation profile. GI PROPHYLAXIS: ?Protonix drip DVT PROPHYLAXIS: ?Pneumatic stockings only Critical care time used for critical evaluation of this patient, diagnosis, treatment and coordination of care, review her records and documentation TOTAL CRITICAL CARE TIME 120 MIN . Patient's care was discussed in detail with Dr. Guillaume.? He is aware of all the above as well as the plan of care for this patient. <MURPHY Monroe - Last Filed: 06/11/21 23:18> [facility] Past Medical History Medical History: Medical History (Updated 06/11/21 @ 07:23 by Delfina Noland MD) Arthritis Bacteremia due to Gram-positive bacteria COVID-19 vaccine series completed Diabetes Elevated cholesterol Elevated prostate specific antigen [PSA] History of BPH HTN (hypertension) <MURPHY Monroe - Last Filed: 06/11/21 23:18> Surgical History Surgical History: Surgical History No significant past surgical history <MURPHY Monroe - Last Filed: 06/11/21 23:18> Social History Social History: Social History Household Members: Spouse Housing: Apartment Are you a primary nurse behavioral health care to a significant other at home: No Do you presently have visiting nurse or other home services: No Alcohol intake: current Alcohol intake frequency: a few times a month Patient Tobacco Use Status: Former Tobacco user Tobacco use type: Cigar service: No Current occupational status: retired <MURPHY Monroe - Last Filed: 06/11/21 23:18> Meds Allergies/Adverse reactions: Allergies Allergy/AdvReac Type Severity Reaction Status Date / Time No Known Allergies Allergy Verified 06/08/21 18:52 <MURPHY Monroe - Last Filed: 06/11/21 23:18> Active Medications: Current Medications Atorvastatin Calcium (Atorvastatin Calcium 10 Mg Tablet) 10 mg PO BEDTIME [facility] Last Admin: 06/10/21 21:09 Dose: 10 mg Documented by: Dextrose (Dextrose 50 % 25 Gm/50 Ml Vial) 25 gm IVPUSH Q15M PRN; Protocol PRN Reason: per Hypoglycemia Standing Ord. Glucose (Glucose Gel 15 Gm Gel..Gram.) 15 gm PO Q15M PRN; Protocol PRN Reason: per Hypoglycemia Standing Ord. Pantoprazole Sodium 80 mg/ (Sodium Chloride) 100 mls @ 10 mls/hr IV .Q10H [facility] Last Admin: 06/11/21 01:30 Dose: 8 mg/hr, 10 mls/hr Documented by: Vancomycin HCl 1,000 mg/ (Sodium Chloride) 270 mls @ 270 mls/hr IV Q24H [facility] Insulin Human Lispro (Insulin Lispro 100 Unit/Ml 3 Ml Vial) 0 unit SUBCUT QIDACHS [facility]; Protocol Last Admin: 06/10/21 21:09 Dose: 6 unit Documented by: Metoprolol Tartrate (Metoprolol Tartrate 25 Mg Tablet) 25 mg PO Q6H [facility]; Protocol Last Admin: 06/11/21 01:07 Dose: Not Given Documented by: Pharmacy Consult (Consult Rx Perform Med Rec) 1 each MISCELLANE ONCE PRN PRN Reason: Consult order Pharmacy Consult (Consult Rx Vancomycin Dosing) 1 each MISCELLANE DAILY PRN PRN Reason: Consult order Sodium Chloride (0.9 % Sodium Chloride Flush 3 Ml Syringe) 3 ml IVFLUSH QSHIFT [facility] Last Admin: 06/10/21 21:09 Dose: 3 ml Documented by: Tamsulosin HCl (Tamsulosin Hcl 0.4 Mg Capsule) 0.4 mg PO BEDTIME [facility] Last Admin: 06/10/21 21:09 Dose: 0.4 mg Documented by: <MURPHY Monroe - Last Filed: 06/11/21 23:18> Home medications: Home Medications Medication Instructions Recorded Confirmed Last Taken Type amlodipine 10 mg tablet 10 mg PO DAILY 02/07/21 06/08/21 06/08/21 History aspirin 81 mg tablet,delayed 81 mg PO DAILY 02/07/21 06/08/21 06/08/21 History release atorvastatin 10 mg tablet 10 mg PO BEDTIME 02/07/21 06/08/21 06/08/21 History glipizide 10 mg tablet 10 mg PO BID 02/07/21 06/08/21 06/08/21 History lisinopril 40 mg tablet 40 mg PO DAILY 02/07/21 06/08/21 06/08/21 History metoprolol tartrate 100 mg tablet 100 mg PO BID 02/07/21 06/08/21 06/08/21 History pioglitazone 30 mg tablet 1 tab PO DAILY 06/08/21 06/08/21 06/08/21 History triamcinolone acetonide 0.1 % 1 applic TOPICAL BID-TID 06/08/21 06/08/21 Unknown History topical cream <MURPHY Monroe - Last Filed: 06/11/21 23:18> Physical Exam Vital Signs: Vital Signs: Last Vital Signs Temp 98.1 F 06/11/21 04:00 Pulse 107 H 06/11/21 04:00 Resp 19 06/11/21 04:00 BP 89/54 L 06/11/21 04:00 Pulse Ox 98 06/11/21 04:00 BMI result Body Mass Index 31.1 <MURPHY Monroe - Last Filed: 06/11/21 23:18> Results Labs CBC and Chem 7: : 06/12/21 15:01 06/12/21 05:30 <MURPHY Monroe - Last Filed: 06/11/21 23:18> Labs: Laboratory Results - last 24 hr 06/08/21 06/10/21 06/10/21 18:09 07:25 07:25 Hgb 13.1 L 11.2 L Hct 37.9 L 34.2 L MCV 89.1 MCH 29.2 MCHC 32.7 RDW 15.0 Plt Count 165 D MPV 11.6 Immature Gran % (Auto) 2.2 H Neut % (Auto) 90.1 H Lymph % (Auto) 2.3 L George % (Auto) 5.1 Eos % (Auto) 0.1 Baso % (Auto) 0.2 Lymph # (Auto) 0.6 L George # (Auto) 1.2 Eos # (Auto) 0.0 Baso # (Auto) 0.1 Abs Immat Gran (auto) 0.53 H Absolute Neuts (auto) 21.5 H Absolute Nucleated RBC 0.000 Nucleated RBC % (auto) 0.0 Smear Tech's Comments VERIFIED PT INR APTT Anion Gap Estim Creat Clear Calc Estimated GFR POC Glucose Random Glucose Lactic Acid Lactic Acid F/U @ 2Hr Calcium Magnesium 3.5 H* Total Bilirubin Direct Bilirubin AST ALT Alkaline Phosphatase B-Natriuretic Peptide Total Protein Albumin Triglycerides Cholesterol LDL Cholesterol, Calc HDL Cholesterol Procalcitonin Stool Occult Blood Blood Type Antibody Screen Crossmatch 01/01/2206/10/21 06/10/21 07:25 07:25 07:48 Hgb Hct MCV MCH MCHC RDW Plt Count MPV Immature Gran % (Auto) Neut % (Auto) Lymph % (Auto) George % (Auto) Eos % (Auto) Baso % (Auto) Lymph # (Auto) George # (Auto) Eos # (Auto) Baso # (Auto) Abs Immat Gran (auto) Absolute Neuts (auto) Absolute Nucleated RBC Nucleated RBC % (auto) Smear Tech's Comments PT INR APTT Anion Gap Estim Creat Clear Calc Estimated GFR POC Glucose 221 H Random Glucose Lactic Acid Lactic Acid F/U @ 2Hr Calcium Magnesium Total Bilirubin Direct Bilirubin AST ALT Alkaline Phosphatase B-Natriuretic Peptide 340 H Total Protein Albumin Triglycerides Cholesterol LDL Cholesterol, Calc HDL Cholesterol Procalcitonin 1.57 Stool Occult Blood Blood Type Antibody Screen Crossmatch 06/10/21 06/10/21 06/10/21 11:57 13:26 13:26 Hgb 10.6 L Hct 32.1 L MCV 89.7 MCH 29.6 MCHC 33.0 RDW 15.1 Plt Count 176 MPV 11.4 Immature Gran % (Auto) Neut % (Auto) Lymph % (Auto) George % (Auto) Eos % (Auto) Baso % (Auto) Lymph # (Auto) George # (Auto) Eos # (Auto) Baso # (Auto) Abs Immat Gran (auto) Absolute Neuts (auto) Absolute Nucleated RBC 0.000 Nucleated RBC % (auto) 0.0 Smear Tech's Comments PT INR APTT Anion Gap Estim Creat Clear Calc Estimated GFR POC Glucose 228 H Random Glucose Lactic Acid Lactic Acid F/U @ 2Hr Calcium Magnesium Total Bilirubin 0.8 Direct Bilirubin 0.6 H AST 81 H ALT 50 H Alkaline Phosphatase 117 D B-Natriuretic Peptide Total Protein 5.1 L D Albumin 2.6 L D Triglycerides Cholesterol LDL Cholesterol, Calc HDL Cholesterol Procalcitonin Stool Occult Blood Blood Type Antibody Screen Crossmatch 06/10/21 06/10/21 06/10/21 13:26 13:26 13:27 Hgb Hct MCV MCH MCHC RDW Plt Count MPV Immature Gran % (Auto) Neut % (Auto) Lymph % (Auto) George % (Auto) Eos % (Auto) Baso % (Auto) Lymph # (Auto) George # (Auto) Eos # (Auto) Baso # (Auto) Abs Immat Gran (auto) Absolute Neuts (auto) Absolute Nucleated RBC Nucleated RBC % (auto) Smear Tech's Comments PT INR APTT Anion Gap 17 Estim Creat Clear Calc 37.0 Estimated GFR 30 POC Glucose Random Glucose 232 H D Lactic Acid 2.6 H* Lactic Acid F/U @ 2Hr Calcium 7.2 L Magnesium Total Bilirubin Direct Bilirubin AST ALT Alkaline Phosphatase B-Natriuretic Peptide Total Protein Albumin Triglycerides 167 Cholesterol 103 D LDL Cholesterol, Calc 60 HDL Cholesterol 10 D Procalcitonin Stool Occult Blood Blood Type O Positive Antibody Screen NEGATIVE Crossmatch See Detail 06/10/21 06/10/21 06/10/21 13:28 14:55 15:58 Hgb Hct MCV MCH MCHC RDW Plt Count MPV Immature Gran % (Auto) Neut % (Auto) Lymph % (Auto) George % (Auto) Eos % (Auto) Baso % (Auto) Lymph # (Auto) George # (Auto) Eos # (Auto) Baso # (Auto) Abs Immat Gran (auto) Absolute Neuts (auto) Absolute Nucleated RBC Nucleated RBC % (auto) Smear Tech's Comments PT INR APTT Anion Gap Estim Creat Clear Calc Estimated GFR POC Glucose 259 H 281 H Random Glucose Lactic Acid Lactic Acid F/U @ 2Hr Calcium Magnesium Total Bilirubin Direct Bilirubin AST ALT Alkaline Phosphatase B-Natriuretic Peptide Total Protein Albumin Triglycerides Cholesterol LDL Cholesterol, Calc HDL Cholesterol Procalcitonin Stool Occult Blood POSITIVE Blood Type Antibody Screen Crossmatch 06/10/21 06/10/21 06/10/21 16:29 18:18 20:03 Hgb 7.1 L D Hct 21.1 L D MCV MCH MCHC RDW Plt Count MPV Immature Gran % (Auto) Neut % (Auto) Lymph % (Auto) George % (Auto) Eos % (Auto) Baso % (Auto) Lymph # (Auto) George # (Auto) Eos # (Auto) Baso # (Auto) Abs Immat Gran (auto) Absolute Neuts (auto) Absolute Nucleated RBC Nucleated RBC % (auto) Smear Tech's Comments PT INR APTT Anion Gap Estim Creat Clear Calc Estimated GFR POC Glucose 298 H Random Glucose Lactic Acid Lactic Acid F/U @ 2Hr 1.4 Calcium Magnesium Total Bilirubin Direct Bilirubin AST ALT Alkaline Phosphatase B-Natriuretic Peptide Total Protein Albumin Triglycerides Cholesterol LDL Cholesterol, Calc HDL Cholesterol Procalcitonin Stool Occult Blood Blood Type Antibody Screen Crossmatch 06/11/21 06/11/21 06/11/21 01:01 04:08 04:08 Hgb 7.8 L 9.2 L Hct 23.0 L 27.3 L MCV 89.5 MCH 30.4 MCHC 33.9 RDW 15.4 Plt Count 110 L D MPV 11.7 Immature Gran % (Auto) 2.9 H Neut % (Auto) 88.0 H Lymph % (Auto) 3.4 L George % (Auto) 5.6 Eos % (Auto) 0.0 Baso % (Auto) 0.1 Lymph # (Auto) 0.8 L George # (Auto) 1.3 H Eos # (Auto) 0.0 Baso # (Auto) 0.0 Abs Immat Gran (auto) 0.67 H Absolute Neuts (auto) 20.2 H Absolute Nucleated RBC 0.000 Nucleated RBC % (auto) 0.0 Smear Tech's Comments VERIFIED PT 12.9 INR 1.1 APTT 26.2 Anion Gap Estim Creat Clear Calc Estimated GFR POC Glucose Random Glucose Lactic Acid Lactic Acid F/U @ 2Hr Calcium Magnesium Total Bilirubin Direct Bilirubin AST ALT Alkaline Phosphatase B-Natriuretic Peptide Total Protein Albumin Triglycerides Cholesterol LDL Cholesterol, Calc HDL Cholesterol Procalcitonin Stool Occult Blood Blood Type Antibody Screen Crossmatch <MURPHY Monroe - Last Filed: 06/11/21 23:18> Critical Care Time Critical Care Time (minutes): 120 <Napoleon Guillaume MD - Last Filed: 06/12/21 18:26>
[2021-06-11] MEDS: ondansetron HCL 4 MG/2 ML VIAL IVPUSH (04:50)
[2021-06-11 05:36] LABS: Glucose, Whole Blood 232 mg/dL (60-115)
[2021-06-11] MEDS: Insulin Lispro 100 UNIT/ML 3 ML VIAL SUBCUT ×2 (05:55→12:15)
--- NOTE | 2021-06-11 06:37 | PC.NURSE ---
Assumed care from NOAH Sarkar, at 3 am. Patient alert, oriented x4, but responds inappropriately at times, becomes restless, pulls off equipment, is resistive to care, PA aware. Patient with low H/H in setting of bloody stools with melena, dark maroon/purple/black color x 2 this shift. Patient arrived on 4 lpm, spo2 has been staying in the mid 90's when awake with some dips into the high 80's with sleep. Patient with clear lung sounds throughout, breathing easy. Patient with occasional dry cough. Patient with low BPs, as low as 89 SBP, PA aware. Patient had 1 Unit pRBC, for a total of three units in the last 24 hours. Patient with plan to have upper endoscopy with GI today, has been NPO since midnight. Oral care provided. Patient with lara catheter that was chronic, changed 2 weeks ago per patient, this was very dirty looking and was changed per PA, noted to have orange discoloration all along the lara. Patient says he follows with urology and has chronic retention issues. Patient's skin is intact except for some small scabbed skin tears along bilateral thighs with bandages intact and mild staining as well as reddened blanchable buttocks bilaterally. was given protamine x1; zofran 4 mg x1 for resultant nausea, as well as on protonix gtt at 8 mg=10 cc/hour.
[2021-06-11 06:49] LABS: Basophils Absolute Auto 0.1 X10*3/uL (0.0-0.2); Basophils Percent Auto 0.2 % (0-2); Hemoglobin 8.8 g/dl (14.0-18.0); Imm Gran Abs Auto 1.09 X10*3/uL (0.00-0.03); Imm Gran Pct Auto 3.9 % (0.0-0.4); Lymphocytes Absolute Auto 0.9 X10*3/uL (1.2-4.9); Lymphocytes Percent Auto 3.2 % (20-40); MANUAL DIFF FLAG SCAN; Mean Corpuscular HGB Conc 33.8 g/dl (31.0-36.0); Mean Corpuscular Hemoglobin 29.3 pg (27.0-33.0); Mean Corpuscular Volume 86.7 fL (80.0-98.0); Mean Platelet Volume 11.9 fL (9.4-12.4); Monocytes Absolute Auto 1.4 X10*3/uL (0.1-1.2); Monocytes Percent Auto 4.9 % (2-11); Neutrophils Absolute Auto 24.8 x10*3/uL (2.0-8.3); Neutrophils Percent Auto 87.8 % (45-73); Platelet Count 102 X10*3/uL (160-400); Red Cell Distribution Width 16.3 % (11.0-16.0); SCAN SMEAR FLAG 1; White Blood Count 28.2 X10*3/uL (4.8-10.8)
[2021-06-11 07:22] LABS: Alanine Aminotransferase 33 U/L (0-40); Albumin Level 2.7 g/dL (3.5-5.0); Alkaline Phosphatase 71 U/L (39-117); Anion Gap 12 (12-20); Aspartate Amino Transferase 41 U/L (5-37); Bilirubin Total 0.7 mg/dL (0.0-1.0); Calcium 7.9 mg/dL (8.4-10.2); Carbon Dioxide 21 mmol/L (22-29); Chloride 104 mmol/L (96-108); Creatinine Clr Calc Pharmacy 46.4; Estimated Glomerular Filt Rate 35; Glucose Random 281 mg/dL (60-115); Magnesium 3.3 mg/dL (1.6-2.6); Potassium 4.2 mmol/L (3.3-5.1); Sodium 133 mmol/L (135-145); Total Protein 4.5 g/dL (6.5-8.0)
[2021-06-11] MEDS: 0.9 % Sodium Chloride Flush 3 ML SYRINGE IVFLUSH (07:22)
[2021-06-11 07:36] LABS: Blood Urea Nitrogen 126 mg/dL (9-16)
--- NOTE | 2021-06-11 08:12 | MHC.SHP ---
Pre-Procedural Eval Section A Date of Service: 06/11/21 The patient is an INPATIENT: Yes Changes since office visit: No Cold of Flu in the past 2 weeks, No New Medical Problems, No Changes in Medication and No Patient answered all questions The History & Physical has been completed within 30 days and I have reviewed it.: Yes Section B Chief Complaint: AFib with RVR Allergies: Allergies Allergy/AdvReac Type Severity Reaction Status Date / Time No Known Allergies Allergy Verified 06/08/21 18:52 Plan I have reviewed the history and physical and performed a pertinent physical examination on my patient. No changes have occurred unless specified.
--- NOTE | 2021-06-11 08:13 | PM.EVENT ---
Event Note Date of Service: 06/11/21 Event Note: EGD multiple duodenal ulcers, active bleeding from a visible vessel in a 15x20 mm ulcer at 6:00 in the junction between bulb and second duodenum. bleeding controlled with 3ml epinephrine and gold probe cautery. rec: cont pantoprazole infusion monitor hct transfuse prn surgical consult no nsaids or anticoagulants
--- NOTE | 2021-06-11 09:02 | CONS_ITS ---
DATE OF SERVICE: 06/11/2021 REFERRING PHYSICIAN: Napoleon Guillaume MD REASON FOR CONSULTATION: Upper GI bleeding. HISTORY OF PRESENT ILLNESS: Mr. Slade is a pleasant 76-year-old man who was admitted to the hospital on June 08 with atrial fibrillation and COVID-19 infection. He was treated with intravenous Cardizem and antibiotics as well as steroids. He was also given Lovenox. Yesterday, he developed melena and received transfusion of 3 units of packed red blood cells overnight. He was transferred to the intensive care unit because of continued bleeding and received 3 unit of packed red blood cells. His last dose of Lovenox was yesterday morning at 2 a.m. and it was held. He does have some renal insufficiency. Patient denies any prior history of peptic ulcer disease. He has been on 81 mg aspirin at home, but denies using NSAIDs or taking significant amounts of alcohol. He does not smoke. He has not had previous ulcers and has never had an endoscopy. PAST MEDICAL HISTORY: 1. Recent COVID-19 infection despite full vaccination and booster. 2. Atrial fibrillation with rapid ventricular response requiring intravenous Cardizem on this admission. 3. Hypertension. 4. Hyperlipidemia. 5. Diabetes. 6. BPH. 7. Arthritis. 8. Elevated PSA. CURRENT MEDICATIONS: Current medication list is reviewed in the chart. He did receive protamine and is on intravenous Protonix. ALLERGIES: THERE ARE NONE REPORTED. FAMILY HISTORY: This is reviewed with the patient and is noncontributory. SOCIAL HISTORY: There is no current tobacco, alcohol, or substance abuse. REVIEW OF SYSTEMS: SKIN: No pruritus. HEENT: Negative. CARDIOPULMONARY: He denies shortness of breath or chest pain currently. GASTROINTESTINAL: As above. GENITOURINARY: Negative. NEUROPSYCHIATRIC: Negative. PHYSICAL EXAMINATION: GENERAL: Shows a pleasant male, lying comfortably in bed. VITAL SIGNS: Reviewed in the electronic medical record. Heart rate has been mostly in the low 100s, although this did spike up to 145 when he was being bathe this morning. Blood pressure has been in the 80 to low 100 range. SKIN: Pale. HEENT: Shows no scleral icterus. NECK: Without lymphadenopathy or thyromegaly. LUNGS: Clear. HEART: Shows an irregular S1, S2. No murmur. ABDOMEN: Soft and protuberant. Bowel sounds are present. No organomegaly is noted. There is no focal tenderness. EXTREMITIES: Show mild edema. LABORATORY DATA: Reviewed. IMPRESSION: Upper gastrointestinal bleeding. The differential diagnosis for this includes bleeding from peptic ulcer disease, malignancy, gastritis, and erosive esophagitis exacerbated by his use of Lovenox. PLAN: I have discussed endoscopy with the patient including risks and benefits. He understands these and agrees to proceed. This will be arranged for later this morning. In the interim, I would recommend continuing to monitor his hematocrit and transfusing as needed. His PPI should also be continued. Thanks for asking me to see him. I will follow him in the hospital with you. MD YAMILKA Wynne/JAYJAY / [id number]
--- NOTE | 2021-06-11 10:20 | HO.ANESPROP2 ---
[facility] Active Problems Active Problems: All Active Problems (Updated 06/11/21 @ 07:23 by Delfina Noland MD) GI bleed (Acute) Hypotension (Acute) Bacteremia due to Gram-positive bacteria (Acute) Atrial fibrillation with rapid ventricular response (Acute) Acute renal failure (Acute) COVID-19 (Acute) Weakness (Acute) Nocturia associated with benign prostatic hyperplasia (Acute) BPH w urinary obs/LUTS (Acute) Elevated prostate specific antigen [PSA] (Acute) Past Medical History Medical History (Updated 06/11/21 @ 07:23 by Delfina Noland MD) Arthritis Bacteremia due to Gram-positive bacteria COVID-19 vaccine series completed Diabetes Elevated cholesterol Elevated prostate specific antigen [PSA] History of BPH HTN (hypertension) Family History Family history of problems with anesthesia: No Surgical History Surgical History No significant past surgical history History of Problems with Anesthesia: No Social History Social History Household Members: Spouse Housing: Apartment Are you a primary health care manager to a significant other at home: No Do you presently have visiting nurse or other home services: No Alcohol intake: current Alcohol intake frequency: a few times a month Patient Tobacco Use Status: Former Tobacco user Tobacco use type: Cigar service: No Current occupational status: retired [employer] Allergies Allergy/AdvReac Type Severity Reaction Status Date / Time No Known Allergies Allergy Verified 06/08/21 18:52 Active Medications: Current Medications Atorvastatin Calcium (Atorvastatin Calcium 10 Mg Tablet) 10 mg PO BEDTIME [facility] Last Admin: 06/10/21 21:09 Dose: 10 mg Documented by: Dextrose (Dextrose 50 % 25 Gm/50 Ml Vial) 25 gm IVPUSH Q15M PRN; Protocol PRN Reason: per Hypoglycemia Standing Ord. Glucose (Glucose Gel 15 Gm Gel..Gram.) 15 gm PO Q15M PRN; Protocol PRN Reason: per Hypoglycemia Standing Ord. Pantoprazole Sodium 80 mg/ (Sodium Chloride) 100 mls @ 10 mls/hr IV .Q10H [facility] Last Admin: 06/11/21 01:30 Dose: 8 mg/hr, 10 mls/hr Documented by: Vancomycin HCl 1,000 mg/ (Sodium Chloride) 270 mls @ 270 mls/hr IV Q24H [facility] Insulin Human Lispro (Insulin Lispro 100 Unit/Ml 3 Ml Vial) 0 unit SUBCUT Q6H [facility]; Protocol Metoprolol Tartrate (Metoprolol Tartrate 25 Mg Tablet) 25 mg PO Q6H [facility]; Protocol Last Admin: 06/11/21 01:07 Dose: Not Given Documented by: Pharmacy Consult (Consult Rx Perform Med Rec) 1 each MISCELLANE ONCE PRN PRN Reason: Consult order Pharmacy Consult (Consult Rx Vancomycin Dosing) 1 each MISCELLANE DAILY PRN PRN Reason: Consult order Sodium Chloride (0.9 % Sodium Chloride Flush 3 Ml Syringe) 3 ml IVFLUSH QSHIFT [facility] Last Admin: 06/11/21 07:22 Dose: 3 ml Documented by: Tamsulosin HCl (Tamsulosin Hcl 0.4 Mg Capsule) 0.4 mg PO BEDTIME [facility] Last Admin: 06/10/21 21:09 Dose: 0.4 mg Documented by: Home Medications Medication Instructions Recorded Confirmed Last Taken Type amlodipine 10 mg tablet 10 mg PO DAILY 02/07/21 06/08/21 06/08/21 History aspirin 81 mg tablet,delayed 81 mg PO DAILY 02/07/21 06/08/21 06/08/21 History release atorvastatin 10 mg tablet 10 mg PO BEDTIME 02/07/21 06/08/21 06/08/21 History glipizide 10 mg tablet 10 mg PO BID 02/07/21 06/08/21 06/08/21 History lisinopril 40 mg tablet 40 mg PO DAILY 02/07/21 06/08/21 06/08/21 History metoprolol tartrate 100 mg tablet 100 mg PO BID 02/07/21 06/08/21 06/08/21 History pioglitazone 30 mg tablet 1 tab PO DAILY 06/08/21 06/08/21 06/08/21 History triamcinolone acetonide 0.1 % 1 applic TOPICAL BID-TID 06/08/21 06/08/21 Unknown History topical cream Exam Exam Date and Time: June 11, 2021 102 Height,Weight and Vital Signs: Height 6 ft Weight 127.8 kg Last Vital Signs Temp 98.1 F 06/11/21 08:00 Pulse 145 H 06/11/21 08:00 Resp 15 06/11/21 08:00 BP 89/56 L 06/11/21 08:00 Pulse Ox 92 06/11/21 08:00 Pertinent Lab Results Pertinent Lab Results: Laboratory Tests 06/08/21 06/08/21 06/08/21 17:17 18:09 18:09 WBC 19.8 H RBC 4.34 L Hgb 13.1 L Hct 37.9 L MCV 87.3 MCH 30.2 MCHC 34.6 RDW 15.0 Plt Count 265 MPV 10.6 Immature Gran % (Auto) 2.0 H Neut % (Auto) 90.3 H Lymph % (Auto) 3.1 L [place] % (Auto) 4.2 Eos % (Auto) 0.2 Baso % (Auto) 0.2 Lymph # (Auto) 0.6 L [place] # (Auto) 0.8 Eos # (Auto) 0.0 Baso # (Auto) 0.0 Abs Immat Gran (auto) 0.40 H Absolute Neuts (auto) 17.9 H Absolute Nucleated RBC 0.000 Nucleated RBC % (auto) 0.0 Smear Tech's Comments VERIFIED PT 12.4 INR 1.1 APTT 26.0 D-Dimer High Sensitivty 3214 Sodium Potassium Chloride Carbon Dioxide Anion Gap BUN Creatinine Estim Creat Clear Calc Estimated GFR POC Glucose 67 Random Glucose Lactic Acid Lactic Acid F/U @ 2Hr Calcium Magnesium Total Bilirubin Direct Bilirubin AST ALT Alkaline Phosphatase Troponin I High Sens B-Natriuretic Peptide Total Protein Albumin Triglycerides Cholesterol LDL Cholesterol, Calc HDL Cholesterol Procalcitonin Urine Color Urine Appearance Urine pH Ur Specific [place] Urine Protein Urine Glucose (UA) Urine Ketones Urine Blood Urine Nitrite Ur Leukocyte Esterase Urine RBC Urine WBC Ur Squamous Epith Cells Amorphous Sediment Urine Bacteria Granular Casts Stool Occult Blood COVID-19 (JOSE ALBERTO) COVID-19 Clin Com Blood Type Antibody Screen Crossmatch 06/08/21 06/08/21 06/08/21 18:09 18:09 18:09 WBC RBC Hgb Hct MCV MCH MCHC RDW Plt Count MPV Immature Gran % (Auto) Neut % (Auto) Lymph % (Auto) [place] % (Auto) Eos % (Auto) Baso % (Auto) Lymph # (Auto) [place] # (Auto) Eos # (Auto) Baso # (Auto) Abs Immat Gran (auto) Absolute Neuts (auto) Absolute Nucleated RBC Nucleated RBC % (auto) Smear Tech's Comments PT INR APTT D-Dimer High Sensitivty Sodium 130 L Potassium 4.2 Chloride 93 L Carbon Dioxide 21 L Anion Gap 20 BUN 91 H Creatinine 2.76 H Estim Creat Clear Calc 28.8 Estimated GFR 23 POC Glucose Random Glucose 67 D Lactic Acid Lactic Acid F/U @ 2Hr Calcium 8.2 L D Magnesium 3.6 H* Total Bilirubin Direct Bilirubin AST ALT Alkaline Phosphatase Troponin I High Sens 46.0 H B-Natriuretic Peptide 303 H Total Protein Albumin Triglycerides Cholesterol LDL Cholesterol, Calc HDL Cholesterol Procalcitonin Urine Color Urine Appearance Urine pH Ur Specific [place] Urine Protein Urine Glucose (UA) Urine Ketones Urine Blood Urine Nitrite Ur Leukocyte Esterase Urine RBC Urine WBC Ur Squamous Epith Cells Amorphous Sediment Urine Bacteria Granular Casts Stool Occult Blood COVID-19 (JOSE ALBERTO) Positive A COVID-19 Clin Com See Note Blood Type Antibody Screen Crossmatch 06/08/21 06/08/21 06/08/21 23:11 23:11 23:11 WBC RBC Hgb Hct MCV MCH MCHC RDW Plt Count MPV Immature Gran % (Auto) Neut % (Auto) Lymph % (Auto) [place] % (Auto) Eos % (Auto) Baso % (Auto) Lymph # (Auto) [place] # (Auto) Eos # (Auto) Baso # (Auto) Abs Immat Gran (auto) Absolute Neuts (auto) Absolute Nucleated RBC Nucleated RBC % (auto) Smear Tech's Comments PT INR APTT D-Dimer High Sensitivty Sodium 131 L Potassium 3.6 Chloride 96 Carbon Dioxide 22 Anion Gap 17 BUN 93 H Creatinine 2.60 H Estim Creat Clear Calc 30.6 Estimated GFR 24 POC Glucose Random Glucose 65 Lactic Acid 1.3 Lactic Acid F/U @ 2Hr Calcium 7.6 L D Magnesium Total Bilirubin Direct Bilirubin AST ALT Alkaline Phosphatase Troponin I High Sens 100.4 H* D B-Natriuretic Peptide Total Protein Albumin Triglycerides Cholesterol LDL Cholesterol, Calc HDL Cholesterol Procalcitonin Urine Color Urine Appearance Urine pH Ur Specific [place] Urine Protein Urine Glucose (UA) Urine Ketones Urine Blood Urine Nitrite Ur Leukocyte Esterase Urine RBC Urine WBC Ur Squamous Epith Cells Amorphous Sediment Urine Bacteria Granular Casts Stool Occult Blood COVID-19 (JOSE ALBERTO) COVID-19 Clin Com Blood Type Antibody Screen Crossmatch 06/08/21 06/08/21 06/09/21 23:11 23:32 00:12 WBC RBC Hgb Hct MCV MCH MCHC RDW Plt Count MPV Immature Gran % (Auto) Neut % (Auto) Lymph % (Auto) [place] % (Auto) Eos % (Auto) Baso % (Auto) Lymph # (Auto) [place] # (Auto) Eos # (Auto) Baso # (Auto) Abs Immat Gran (auto) Absolute Neuts (auto) Absolute Nucleated RBC Nucleated RBC % (auto) Smear Tech's Comments PT INR APTT D-Dimer High Sensitivty Sodium Potassium Chloride Carbon Dioxide Anion Gap BUN Creatinine Estim Creat Clear Calc Estimated GFR POC Glucose 60 Random Glucose Lactic Acid Lactic Acid F/U @ 2Hr Calcium Magnesium Total Bilirubin Direct Bilirubin AST ALT Alkaline Phosphatase Troponin I High Sens B-Natriuretic Peptide 270 H Total Protein Albumin Triglycerides Cholesterol LDL Cholesterol, Calc HDL Cholesterol Procalcitonin Urine Color DK YELLOW Urine Appearance HAZY Urine pH 5.5 Ur Specific [place] >= 1.030 H Urine Protein TRACE Urine Glucose (UA) NEG Urine Ketones NEG Urine Blood 2+ H Urine Nitrite NEG Ur Leukocyte Esterase NEG Urine RBC 5-9 H Urine WBC 0-2 Ur Squamous Epith Cells TRACE Amorphous Sediment 1+ Urine Bacteria TRACE Granular Casts 0-2 Stool Occult Blood COVID-19 (JOSE ALBERTO) COVID-19 Clin Com Blood Type Antibody Screen Crossmatch 06/09/21 06/09/21 06/09/21 08:00 08:01 08:40 WBC RBC Hgb Hct MCV MCH MCHC RDW Plt Count MPV Immature Gran % (Auto) Neut % (Auto) Lymph % (Auto) [place] % (Auto) Eos % (Auto) Baso % (Auto) Lymph # (Auto) [place] # (Auto) Eos # (Auto) Baso # (Auto) Abs Immat Gran (auto) Absolute Neuts (auto) Absolute Nucleated RBC Nucleated RBC % (auto) Smear Tech's Comments PT INR APTT D-Dimer High Sensitivty Sodium 131 L Potassium 3.6 Chloride 97 Carbon Dioxide 22 Anion Gap 16 BUN 94 H Creatinine 2.56 H Estim Creat Clear Calc 31.1 Estimated GFR 25 POC Glucose 72 Random Glucose 63 Lactic Acid Lactic Acid F/U @ 2Hr Calcium 7.3 L Magnesium 3.3 H Total Bilirubin Direct Bilirubin AST ALT Alkaline Phosphatase Troponin I High Sens 983.7 H* D B-Natriuretic Peptide Total Protein Albumin Triglycerides Cholesterol LDL Cholesterol, Calc HDL Cholesterol Procalcitonin Urine Color Urine Appearance Urine pH Ur Specific [place] Urine Protein Urine Glucose (UA) Urine Ketones Urine Blood Urine Nitrite Ur Leukocyte Esterase Urine RBC Urine WBC Ur Squamous Epith Cells Amorphous Sediment Urine Bacteria Granular Casts Stool Occult Blood COVID-19 (JOSE ALBERTO) COVID-19 Clin Com Blood Type Antibody Screen Crossmatch 06/09/21 06/09/21 06/09/21 12:18 16:35 20:49 WBC RBC Hgb Hct MCV MCH MCHC RDW Plt Count MPV Immature Gran % (Auto) Neut % (Auto) Lymph % (Auto) [place] % (Auto) Eos % (Auto) Baso % (Auto) Lymph # (Auto) [place] # (Auto) Eos # (Auto) Baso # (Auto) Abs Immat Gran (auto) Absolute Neuts (auto) Absolute Nucleated RBC Nucleated RBC % (auto) Smear Tech's Comments PT INR APTT D-Dimer High Sensitivty Sodium Potassium Chloride Carbon Dioxide Anion Gap BUN Creatinine Estim Creat Clear Calc Estimated GFR POC Glucose 79 86 135 H Random Glucose Lactic Acid Lactic Acid F/U @ 2Hr Calcium Magnesium Total Bilirubin Direct Bilirubin AST ALT Alkaline Phosphatase Troponin I High Sens B-Natriuretic Peptide Total Protein Albumin Triglycerides Cholesterol LDL Cholesterol, Calc HDL Cholesterol Procalcitonin Urine Color Urine Appearance Urine pH Ur Specific [place] Urine Protein Urine Glucose (UA) Urine Ketones Urine Blood Urine Nitrite Ur Leukocyte Esterase Urine RBC Urine WBC Ur Squamous Epith Cells Amorphous Sediment Urine Bacteria Granular Casts Stool Occult Blood COVID-19 (JOSE ALBERTO) COVID-19 Clin Com Blood Type Antibody Screen Crossmatch 06/10/21 06/10/21 06/10/21 07:25 07:25 07:25 WBC 23.9 H RBC 3.84 L Hgb 11.2 L Hct 34.2 L MCV 89.1 MCH 29.2 MCHC 32.7 RDW 15.0 Plt Count 165 D MPV 11.6 Immature Gran % (Auto) 2.2 H Neut % (Auto) 90.1 H Lymph % (Auto) 2.3 L [place] % (Auto) 5.1 Eos % (Auto) 0.1 Baso % (Auto) 0.2 Lymph # (Auto) 0.6 L [place] # (Auto) 1.2 Eos # (Auto) 0.0 Baso # (Auto) 0.1 Abs Immat Gran (auto) 0.53 H Absolute Neuts (auto) 21.5 H Absolute Nucleated RBC 0.000 Nucleated RBC % (auto) 0.0 Smear Tech's Comments VERIFIED PT INR APTT D-Dimer High Sensitivty Sodium Potassium Chloride Carbon Dioxide Anion Gap BUN Creatinine Estim Creat Clear Calc Estimated GFR POC Glucose Random Glucose Lactic Acid Lactic Acid F/U @ 2Hr Calcium Magnesium 3.5 H* Total Bilirubin Direct Bilirubin AST ALT Alkaline Phosphatase Troponin I High Sens B-Natriuretic Peptide 340 H Total Protein Albumin Triglycerides Cholesterol LDL Cholesterol, Calc HDL Cholesterol Procalcitonin Urine Color Urine Appearance Urine pH Ur Specific [place] Urine Protein Urine Glucose (UA) Urine Ketones Urine Blood Urine Nitrite Ur Leukocyte Esterase Urine RBC Urine WBC Ur Squamous Epith Cells Amorphous Sediment Urine Bacteria Granular Casts Stool Occult Blood COVID-19 (JOSE ALBERTO) COVID-19 [place] Blood Type Antibody Screen Crossmatch 06/10/21 06/10/21 06/10/21 07:25 07:48 11:57 WBC RBC Hgb Hct MCV MCH MCHC RDW Plt Count MPV Immature Gran % (Auto) Neut % (Auto) Lymph % (Auto) [place] % (Auto) Eos % (Auto) Baso % (Auto) Lymph # (Auto) [place] # (Auto) Eos # (Auto) Baso # (Auto) Abs Immat Gran (auto) Absolute Neuts (auto) Absolute Nucleated RBC Nucleated RBC % (auto) Smear Tech's Comments PT INR APTT D-Dimer High Sensitivty Sodium Potassium Chloride Carbon Dioxide Anion Gap BUN Creatinine Estim Creat Clear Calc Estimated GFR POC Glucose 221 H 228 H Random Glucose Lactic Acid Lactic Acid F/U @ 2Hr Calcium Magnesium Total Bilirubin Direct Bilirubin AST ALT Alkaline Phosphatase Troponin I High Sens B-Natriuretic Peptide Total Protein Albumin Triglycerides Cholesterol LDL Cholesterol, Calc HDL Cholesterol Procalcitonin 1.57 Urine Color Urine Appearance Urine pH Ur Specific [place] Urine Protein Urine Glucose (UA) Urine Ketones Urine Blood Urine Nitrite Ur Leukocyte Esterase Urine RBC Urine WBC Ur Squamous Epith Cells Amorphous Sediment Urine Bacteria Granular Casts Stool Occult Blood COVID-19 (JOSE ALBERTO) COVID-19 [place] Blood Type Antibody Screen Crossmatch 06/10/21 06/10/21 06/10/21 13:26 13:26 13:26 WBC 26.7 H RBC 3.58 L Hgb 10.6 L Hct 32.1 L MCV 89.7 MCH 29.6 MCHC 33.0 RDW 15.1 Plt Count 176 MPV 11.4 Immature Gran % (Auto) Neut % (Auto) Lymph % (Auto) [place] % (Auto) Eos % (Auto) Baso % (Auto) Lymph # (Auto) [place] # (Auto) Eos # (Auto) Baso # (Auto) Abs Immat Gran (auto) Absolute Neuts (auto) Absolute Nucleated RBC 0.000 Nucleated RBC % (auto) 0.0 Smear Tech's Comments PT INR APTT D-Dimer High Sensitivty Sodium Potassium Chloride Carbon Dioxide Anion Gap BUN Creatinine Estim Creat Clear Calc Estimated GFR POC Glucose Random Glucose Lactic Acid 2.6 H* Lactic Acid F/U @ 2Hr Calcium Magnesium Total Bilirubin 0.8 Direct Bilirubin 0.6 H AST 81 H ALT 50 H Alkaline Phosphatase 117 D Troponin I High Sens B-Natriuretic Peptide Total Protein 5.1 L D Albumin 2.6 L D Triglycerides Cholesterol LDL Cholesterol, Calc HDL Cholesterol Procalcitonin Urine Color Urine Appearance Urine pH Ur Specific [place] Urine Protein Urine Glucose (UA) Urine Ketones Urine Blood Urine Nitrite Ur Leukocyte Esterase Urine RBC Urine WBC Ur Squamous Epith Cells Amorphous Sediment Urine Bacteria Granular Casts Stool Occult Blood COVID-19 (JOSE ALBERTO) COVID-19 Clin Com Blood Type Antibody Screen Crossmatch 06/10/21 06/10/21 06/10/21 13:26 13:27 13:28 WBC RBC Hgb Hct MCV MCH MCHC RDW Plt Count MPV Immature Gran % (Auto) Neut % (Auto) Lymph % (Auto) [place] % (Auto) Eos % (Auto) Baso % (Auto) Lymph # (Auto) [place] # (Auto) Eos # (Auto) Baso # (Auto) Abs Immat Gran (auto) Absolute Neuts (auto) Absolute Nucleated RBC Nucleated RBC % (auto) Smear Tech's Comments PT INR APTT D-Dimer High Sensitivty Sodium 130 L Potassium 4.3 Chloride 98 Carbon Dioxide 19 L Anion Gap 17 BUN 124 H D Creatinine 2.15 H Estim Creat Clear Calc 37.0 Estimated GFR 30 POC Glucose Random Glucose 232 H D Lactic Acid Lactic Acid F/U @ 2Hr Calcium 7.2 L Magnesium Total Bilirubin Direct Bilirubin AST ALT Alkaline Phosphatase Troponin I High Sens B-Natriuretic Peptide Total Protein Albumin Triglycerides 167 Cholesterol 103 D LDL Cholesterol, Calc 60 HDL Cholesterol 10 D Procalcitonin Urine Color Urine Appearance Urine pH Ur Specific [place] Urine Protein Urine Glucose (UA) Urine Ketones Urine Blood Urine Nitrite Ur Leukocyte Esterase Urine RBC Urine WBC Ur Squamous Epith Cells Amorphous Sediment Urine Bacteria Granular Casts Stool Occult Blood POSITIVE COVID-19 (JOSE ALBERTO) COVID-19 Clin Com Blood Type O Positive Antibody Screen NEGATIVE Crossmatch See Detail 06/10/21 06/10/21 06/10/21 14:55 15:58 16:29 WBC RBC Hgb Hct MCV MCH MCHC RDW Plt Count MPV Immature Gran % (Auto) Neut % (Auto) Lymph % (Auto) [place] % (Auto) Eos % (Auto) Baso % (Auto) Lymph # (Auto) [place] # (Auto) Eos # (Auto) Baso # (Auto) Abs Immat Gran (auto) Absolute Neuts (auto) Absolute Nucleated RBC Nucleated RBC % (auto) Smear Tech's Comments PT INR APTT D-Dimer High Sensitivty Sodium Potassium Chloride Carbon Dioxide Anion Gap BUN Creatinine Estim Creat Clear Calc Estimated GFR POC Glucose 259 H 281 H Random Glucose Lactic Acid Lactic Acid F/U @ 2Hr 1.4 Calcium Magnesium Total Bilirubin Direct Bilirubin AST ALT Alkaline Phosphatase Troponin I High Sens B-Natriuretic Peptide Total Protein Albumin Triglycerides Cholesterol LDL Cholesterol, Calc HDL Cholesterol Procalcitonin Urine Color Urine Appearance Urine pH Ur Specific [place] Urine Protein Urine Glucose (UA) Urine Ketones Urine Blood Urine Nitrite Ur Leukocyte Esterase Urine RBC Urine WBC Ur Squamous Epith Cells Amorphous Sediment Urine Bacteria Granular Casts Stool Occult Blood COVID-19 (JOSE ALBERTO) COVID-19 Clin Com Blood Type Antibody Screen Crossmatch 06/10/21 06/10/21 06/11/21 18:18 20:03 01:01 WBC 22.9 H RBC 2.57 L D Hgb 7.1 L D 7.8 L Hct 21.1 L D 23.0 L MCV 89.5 MCH 30.4 MCHC 33.9 RDW 15.4 Plt Count 110 L D MPV 11.7 Immature Gran % (Auto) 2.9 H Neut % (Auto) 88.0 H Lymph % (Auto) 3.4 L [place] % (Auto) 5.6 Eos % (Auto) 0.0 Baso % (Auto) 0.1 Lymph # (Auto) 0.8 L [place] # (Auto) 1.3 H Eos # (Auto) 0.0 Baso # (Auto) 0.0 Abs Immat Gran (auto) 0.67 H Absolute Neuts (auto) 20.2 H Absolute Nucleated RBC 0.000 Nucleated RBC % (auto) 0.0 Smear Tech's Comments VERIFIED PT INR APTT D-Dimer High Sensitivty Sodium Potassium Chloride Carbon Dioxide Anion Gap BUN Creatinine Estim Creat Clear Calc Estimated GFR POC Glucose 298 H Random Glucose Lactic Acid Lactic Acid F/U @ 2Hr Calcium Magnesium Total Bilirubin Direct Bilirubin AST ALT Alkaline Phosphatase Troponin I High Sens B-Natriuretic Peptide Total Protein Albumin Triglycerides Cholesterol LDL Cholesterol, Calc HDL Cholesterol Procalcitonin Urine Color Urine Appearance Urine pH Ur Specific [place] Urine Protein Urine Glucose (UA) Urine Ketones Urine Blood Urine Nitrite Ur Leukocyte Esterase Urine RBC Urine WBC Ur Squamous Epith Cells Amorphous Sediment Urine Bacteria Granular Casts Stool Occult Blood COVID-19 (JOSE ALBERTO) COVIDOnfido19 [place] Blood Type Antibody Screen Crossmatch 06/11/21 06/11/21 06/11/21 04:08 04:08 05:27 WBC RBC Hgb 9.2 L Hct 27.3 L MCV MCH MCHC RDW Plt Count MPV Immature Gran % (Auto) Neut % (Auto) Lymph % (Auto) [place] % (Auto) Eos % (Auto) Baso % (Auto) Lymph # (Auto) [place] # (Auto) Eos # (Auto) Baso # (Auto) Abs Immat Gran (auto) Absolute Neuts (auto) Absolute Nucleated RBC Nucleated RBC % (auto) Smear Tech's Comments PT 12.9 INR 1.1 APTT 26.2 D-Dimer High Sensitivty Sodium Potassium Chloride Carbon Dioxide Anion Gap BUN Creatinine Estim Creat Clear Calc Estimated GFR POC Glucose 232 H Random Glucose Lactic Acid Lactic Acid F/U @ 2Hr Calcium Magnesium Total Bilirubin Direct Bilirubin AST ALT Alkaline Phosphatase Troponin I High Sens B-Natriuretic Peptide Total Protein Albumin Triglycerides Cholesterol LDL Cholesterol, Calc HDL Cholesterol Procalcitonin Urine Color Urine Appearance Urine pH Ur Specific [place] Urine Protein Urine Glucose (UA) Urine Ketones Urine Blood Urine Nitrite Ur Leukocyte Esterase Urine RBC Urine WBC Ur Squamous Epith Cells Amorphous Sediment Urine Bacteria Granular Casts Stool Occult Blood COVID-19 (JOSE ALBERTO) COVIDOnfido19 [place] Blood Type Antibody Screen Crossmatch 06/11/21 06/11/21 06:41 06:41 WBC 28.2 H RBC 3.00 L Hgb 8.8 L Hct 26.0 L MCV 86.7 MCH 29.3 MCHC 33.8 RDW 16.3 H Plt Count 102 L MPV 11.9 Immature Gran % (Auto) 3.9 H Neut % (Auto) 87.8 H Lymph % (Auto) 3.2 L [place] % (Auto) 4.9 Eos % (Auto) 0.0 Baso % (Auto) 0.2 Lymph # (Auto) 0.9 L [place] # (Auto) 1.4 H Eos # (Auto) 0.0 Baso # (Auto) 0.1 Abs Immat Gran (auto) 1.09 H Absolute Neuts (auto) 24.8 H Absolute Nucleated RBC 0.000 Nucleated RBC % (auto) 0.0 Smear Tech's Comments PT INR APTT D-Dimer High Sensitivty Sodium 133 L Potassium 4.2 Chloride 104 Carbon Dioxide 21 L Anion Gap 12 BUN 126 H Creatinine 1.90 H Estim Creat Clear Calc 46.4 Estimated GFR 35 POC Glucose Random Glucose 281 H Lactic Acid Lactic Acid F/U @ 2Hr Calcium 7.9 L D Magnesium 3.3 H Total Bilirubin 0.7 Direct Bilirubin AST 41 H D ALT 33 Alkaline Phosphatase 71 D Troponin I High Sens B-Natriuretic Peptide Total Protein 4.5 L Albumin 2.7 L Triglycerides Cholesterol LDL Cholesterol, Calc HDL Cholesterol Procalcitonin Urine Color Urine Appearance Urine pH Ur Specific [place] Urine Protein Urine Glucose (UA) Urine Ketones Urine Blood Urine Nitrite Ur Leukocyte Esterase Urine RBC Urine WBC Ur Squamous Epith Cells Amorphous Sediment Urine Bacteria Granular Casts Stool Occult Blood COVID-19 (JOSE ALBERTO) COVID-19 Clin Com Blood Type Antibody Screen Crossmatch Airway Mallampati Class: III TM Dist: >3cm Neck ROM: Full Assessment and Plan Assessment Anesthesia Assessment: Anesthesia Plan Discussed and Chart Reviewed Final Anesthetic Review Family History of Problems with Anesthesia: No History of Problems with Anesthesia: No NPO: Yes ASA Class: IV and Emergency Final Preanesthetic Review: Meds/Allgs Chart Reviewed, Consent Obtained/Reviewed and Anes Risks/Benef Reviewed Patient Risk: High Procedure Risk: Intermediate Anesthetic Plan Anesthetic Plan: GA Disposition: Inp. Admit - ICU
--- NOTE | 2021-06-11 10:44 | P.BOP_ITS ---
Brief Operative Note Date of Service: 06/11/21 Pre-op diagnosis: gi bleed Post-op diagnosis: same Procedure: egd Surgeon: Marcos Mae Anesthesia: GETA and MAC Was an Commissioning Manager used for this Procedure?: No Estimated blood loss (mL): 50 Pathology: none sent Condition: stable Disposition: ICU
[2021-06-11] MEDS: propofoL 1,000 MG/100 ML VIAL 15.34 MG IVCONT ×2 (11:15→11:25)
[2021-06-11] MEDS: fentaNYL citrate/PF 100 MCG/2 ML VIAL IVPUSH ×3 (11:25→23:58)
[2021-06-11] MEDS: Esmolol HCl/NaCl Iso 2,500 MG/250 ML IV.SOLN 19.17 MG IVCONT (11:25)
[2021-06-11] MEDS: Albumin Human 25 % 100 ML IV (11:43)
[2021-06-11 12:13] LABS: Glucose, Whole Blood 287 mg/dL (60-115)
--- NOTE | 2021-06-11 12:15 | W.PM.CCHP ---
Procedures Date of Service Date of Service: 06/11/21 Central Line Placement Left IJ: Central Line Comments: PROCEDURE:? Insertion left internal jugular triple lumen central venous catheter. INDICATION:? Hemorrhagic shock and respiratory failure. ANESTHESIA:? Local. PROCEDURE:? Verbal consent was obtained by telephone from the patient's . After return from the OR, vascular ultrasound was used to examine the left neck, left supraclavicular and left subclavian areas.? The only reasonably accessible vein looked like the low left internal jugular. The left neck was widely prepped and draped in full sterile fashion.? The low left internal jugular vein was located by ultrasound.? Local anesthesia was applied to the needle insertion site.? The 18 gauge needle cannulated the vein under direct ultrasound guidance on the first pass.? There was easy aspiration of dark blood.? The wire was threaded without incident.? The 7Fr x 16cm triple lumen catheter was then inserted via Seldinger tech without incident.? There was good blood return x3.? The catheter was sutured x3 and a Biopatch and dry sterile dressing were applied. Postop chest x-ray showed the line in good position with no pneumothorax.? The patient tolerated the procedure well w no complications.
--- NOTE | 2021-06-11 12:18 | P.CONGS_ITS ---
History of Present Illness Consult details Consult date: 06/11/21 Narrative: 76-year-old male referred for upper GI bleed. He was actually admitted last 06/08/2020 because of generalized weakness with exertional dyspnea.He was diagnosed to have new onset AFib with rapid ventricular rate. He also was noted to have COVID pneumonia. He was started on anticoagulation with Lovenox. Yesterday, he was noted to have melanotic stools along with drop in his hemoglobin and low blood pressures overnight. He was transferred to the ICU early this morning. His Lovenox was discontinued. He went for an EGD this morning and was noted to have multiple small ulcers in the stomach and duodenum. There was 1 particular ulcer that was noted to be oozing. This was controlled endoscopically with injections. Review of Systems Review of Systems: Currently intubated therefore not communicative; reviewed of systems is therefore from the medical records Constitutional: Constitutional: Denies chills, Reports fatigue, Denies fe gissel(s) and Reports lethargy Cardiovascular: Cardiovascular: Reports dyspnea and Reports dyspnea on exertion Respiratory: Respiratory: Reports dyspnea and Reports dyspnea on exertion Gastrointestinal: Gastrointestinal: Reports as per HPI Endocrine: Endocrine: Reports fatigue PMFSH Past Medical History Medical History (Updated 06/11/21 @ 07:23 by Delfina Noland MD) Arthritis Bacteremia due to Gram-positive bacteria COVID-19 vaccine series completed Diabetes Elevated cholesterol Elevated prostate specific antigen [PSA] History of BPH HTN (hypertension) Surgical History Surgical History No significant past surgical history Social History Social History Household Members: Spouse Housing: Apartment Are you a primary care taker to a significant other at home: No Do you presently have visiting nurse or other home services: No Alcohol intake: current Alcohol intake frequency: a few times a month Patient Tobacco Use Status: Former Tobacco user Tobacco use type: Cigar service: No Current occupational status: retired Meds Allergies Allergy/AdvReac Type Severity Reaction Status Date / Time No Known Allergies Allergy Verified 06/08/21 18:52 Active Medications: Current Medications Atorvastatin Calcium (Atorvastatin Calcium 10 Mg Tablet) 10 mg PO BEDTIME [facility] Last Admin: 06/10/21 21:09 Dose: 10 mg Documented by: Dextrose (Dextrose 50 % 25 Gm/50 Ml Vial) 25 gm IVPUSH Q15M PRN; Protocol PRN Reason: per Hypoglycemia Standing Ord. Fentanyl (Fentanyl Citrate/Pf 100 Mcg/2 Ml Vial) 50 mcg IVPUSH Q5M PRN; Protocol PRN Reason: pain or WOB Fentanyl (Fentanyl Citrate/Pf 100 Mcg/2 Ml Vial) 100 mcg IVPUSH Q5M PRN; Protocol PRN Reason: pain or WOB Glucose (Glucose Gel 15 Gm Gel..Gram.) 15 gm PO Q15M PRN; Protocol PRN Reason: per Hypoglycemia Standing Ord. Pantoprazole Sodium 80 mg/ (Sodium Chloride) 100 mls @ 10 mls/hr IV .Q10H [facility] Last Admin: 06/11/21 12:07 Dose: 8 mg/hr, 10 mls/hr Documented by: Vancomycin HCl 1,000 mg/ (Sodium Chloride) 270 mls @ 270 mls/hr IV Q24H [facility] Fentanyl (Sublimaze/Ns) 1,000 mcg in 100 mls @ 0 mls/hr IVCONT .Q0M [facility]; Protocol Albumin Human (Kedbumin 25 %) 100 mls @ 100 mls/hr IV ONCE ONE Stop: 06/11/21 12:38 Last Infusion: 06/11/21 11:45 Dose: Infused Documented by: Norepinephrine Bitartrate (Levophed) 8 mg in 250 mls @ 0 mls/hr IVCONT .Q0M [facility]; Protocol Last Titration: 06/11/21 12:14 Dose: 0.3 mcg/kg/min, 71.89 mls/hr Documented by: Propofol (Diprivan) 1,000 mg in 100 mls @ 0 mls/hr IVCONT .Q0M [facility]; Protocol Last Admin: 06/11/21 11:15 Dose: 20 mcg/kg/min, 15.34 mls/hr Documented by: Esmolol HCl (Brevibloc/Nacl) 2,500 mg in 250 mls @ 0 mls/hr IVCONT .Q0M [facility]; Protocol Last Titration: 06/11/21 11:45 Dose: 50 mcg/kg/min, 38.34 mls/hr Documented by: Insulin Human Lispro (Insulin Lispro 100 Unit/Ml 3 Ml Vial) 0 unit SUBCUT Q6H [facility]; Protocol Last Admin: 06/11/21 12:15 Dose: 6 unit Documented by: Metoprolol Tartrate (Metoprolol Tartrate 25 Mg Tablet) 25 mg PO Q6H [facility]; Protocol Last Admin: 06/11/21 01:07 Dose: Not Given Documented by: Naloxone HCl (Naloxone Hcl 0.4 Mg/Ml Vial) 0.2 mg IVPUSH Q2M PRN PRN Reason: Excessive sedation or RR < 8 Pharmacy Consult (Consult Rx Perform Med Rec) 1 each MISCELLANE ONCE PRN PRN Reason: Consult order Pharmacy Consult (Consult Rx Vancomycin Dosing) 1 each MISCELLANE DAILY PRN PRN Reason: Consult order Sodium Chloride (0.9 % Sodium Chloride Flush 3 Ml Syringe) 3 ml IVFLUSH QSHIFT [facility] Last Admin: 06/11/21 07:22 Dose: 3 ml Documented by: Tamsulosin HCl (Tamsulosin Hcl 0.4 Mg Capsule) 0.4 mg PO BEDTIME [facility] Last Admin: 06/10/21 21:09 Dose: 0.4 mg Documented by: Home Medications Medication Instructions Recorded Confirmed Last Taken Type amlodipine 10 mg tablet 10 mg PO DAILY 02/07/21 06/08/21 06/08/21 History aspirin 81 mg tablet,delayed 81 mg PO DAILY 02/07/21 06/08/21 06/08/21 History release atorvastatin 10 mg tablet 10 mg PO BEDTIME 02/07/21 06/08/21 06/08/21 History glipizide 10 mg tablet 10 mg PO BID 02/07/21 06/08/21 06/08/21 History lisinopril 40 mg tablet 40 mg PO DAILY 02/07/21 06/08/21 06/08/21 History metoprolol tartrate 100 mg tablet 100 mg PO BID 02/07/21 06/08/21 06/08/21 History pioglitazone 30 mg tablet 1 tab PO DAILY 06/08/21 06/08/21 06/08/21 History triamcinolone acetonide 0.1 % 1 applic TOPICAL BID-TID 06/08/21 06/08/21 Unknown History topical cream Physical Exam Vital Signs: Vital Signs: Last Vital Signs Temp 97.7 F 06/11/21 12:00 Pulse 92 06/11/21 12:00 Resp 14 06/11/21 12:00 BP 123/67 06/11/21 12:14 Pulse Ox 91 L 06/11/21 12:00 Oxygen Flow Rate 55 06/11/21 10:25 BMI result Body Mass Index 38.2 Const: Other: currently on the ventilator, intubated, sedated,not communicative Resp: Other: on ventilator, good air entry, saturating well Cardio: Other: irregular, AFib GI: Other: nondistended Palpation (GI): Soft to palpation, not firm, nontender, no guarding and not rigid Results Labs Result diagrams: 06/14/21 05:43 06/14/21 05:43 Labs: Abnormal lab results 06/10/21 06/10/21 06/10/21 Range/Units 13:26 13:26 13:26 WBC 26.7 H (4.8-10.8) X10*3/uL RBC 3.58 L (4.60-5.80) X10*6/uL Hgb 10.6 L (14.0-18.0) g/dl Hct 32.1 L (42.0-52.0) % RDW (11.0-16.0) % Plt Count (160-400) X10*3/uL Immature Gran % (Auto) (0.0-0.4) % Neut % (Auto) (45-73) % Lymph % (Auto) (20-40) % Lymph # (Auto) (1.2-4.9) X10*3/uL [place] # (Auto) (0.1-1.2) X10*3/uL Abs Immat Gran (auto) (0.00-0.03) X10*3/uL Absolute Neuts (auto) (2.0-8.3) x10*3/uL Sodium (135-145) mmol/L Carbon Dioxide (22-29) mmol/L BUN (9-16) mg/dL Creatinine (0.5-1.4) mg/dL POC Glucose (60-115) mg/dL Random Glucose (60-115) mg/dL Lactic Acid 2.6 H* (0.5-2.0) mmol/L Calcium (8.4-10.2) mg/dL Magnesium (1.6-2.6) mg/dL Direct Bilirubin 0.6 H (0.0-0.5) mg/dL AST 81 H (5-37) U/L ALT 50 H (0-40) U/L Total Protein 5.1 L D (6.5-8.0) g/dL Albumin 2.6 L D (3.5-5.0) g/dL Crossmatch 06/10/21 06/10/21 06/10/21 Range/Units 13:26 13:27 14:55 WBC (4.8-10.8) X10*3/uL RBC (4.60-5.80) X10*6/uL Hgb (14.0-18.0) g/dl Hct (42.0-52.0) % RDW (11.0-16.0) % Plt Count (160-400) X10*3/uL Immature Gran % (Auto) (0.0-0.4) % Neut % (Auto) (45-73) % Lymph % (Auto) (20-40) % Lymph # (Auto) (1.2-4.9) X10*3/uL [place] # (Auto) (0.1-1.2) X10*3/uL Abs Immat Gran (auto) (0.00-0.03) X10*3/uL Absolute Neuts (auto) (2.0-8.3) x10*3/uL Sodium 130 L (135-145) mmol/L Carbon Dioxide 19 L (22-29) mmol/L BUN 124 H D (9-16) mg/dL Creatinine 2.15 H (0.5-1.4) mg/dL POC Glucose 259 H (60-115) mg/dL Random Glucose 232 H D (60-115) mg/dL Lactic Acid (0.5-2.0) mmol/L Calcium 7.2 L (8.4-10.2) mg/dL Magnesium (1.6-2.6) mg/dL Direct Bilirubin (0.0-0.5) mg/dL AST (5-37) U/L ALT (0-40) U/L Total Protein (6.5-8.0) g/dL Albumin (3.5-5.0) g/dL Crossmatch See Detail 06/10/21 06/10/21 06/10/21 Range/Units 15:58 18:18 20:03 WBC (4.8-10.8) X10*3/uL RBC (4.60-5.80) X10*6/uL Hgb 7.1 L D (14.0-18.0) g/dl Hct 21.1 L D (42.0-52.0) % RDW (11.0-16.0) % Plt Count (160-400) X10*3/uL Immature Gran % (Auto) (0.0-0.4) % Neut % (Auto) (45-73) % Lymph % (Auto) (20-40) % Lymph # (Auto) (1.2-4.9) X10*3/uL [place] # (Auto) (0.1-1.2) X10*3/uL Abs Immat Gran (auto) (0.00-0.03) X10*3/uL Absolute Neuts (auto) (2.0-8.3) x10*3/uL Sodium (135-145) mmol/L Carbon Dioxide (22-29) mmol/L BUN (9-16) mg/dL Creatinine (0.5-1.4) mg/dL POC Glucose 281 H 298 H (60-115) mg/dL Random Glucose (60-115) mg/dL Lactic Acid (0.5-2.0) mmol/L Calcium (8.4-10.2) mg/dL Magnesium (1.6-2.6) mg/dL Direct Bilirubin (0.0-0.5) mg/dL AST (5-37) U/L ALT (0-40) U/L Total Protein (6.5-8.0) g/dL Albumin (3.5-5.0) g/dL Crossmatch 06/11/21 06/11/21 06/11/21 Range/Units 01:01 04:08 05:27 WBC 22.9 H (4.8-10.8) X10*3/uL RBC 2.57 L D (4.60-5.80) X10*6/uL Hgb 7.8 L 9.2 L (14.0-18.0) g/dl Hct 23.0 L 27.3 L (42.0-52.0) % RDW (11.0-16.0) % Plt Count 110 L D (160-400) X10*3/uL Immature Gran % (Auto) 2.9 H (0.0-0.4) % Neut % (Auto) 88.0 H (45-73) % Lymph % (Auto) 3.4 L (20-40) % Lymph # (Auto) 0.8 L (1.2-4.9) X10*3/uL [place] # (Auto) 1.3 H (0.1-1.2) X10*3/uL Abs Immat Gran (auto) 0.67 H (0.00-0.03) X10*3/uL Absolute Neuts (auto) 20.2 H (2.0-8.3) x10*3/uL Sodium (135-145) mmol/L Carbon Dioxide (22-29) mmol/L BUN (9-16) mg/dL Creatinine (0.5-1.4) mg/dL POC Glucose 232 H (60-115) mg/dL Random Glucose (60-115) mg/dL Lactic Acid (0.5-2.0) mmol/L Calcium (8.4-10.2) mg/dL Magnesium (1.6-2.6) mg/dL Direct Bilirubin (0.0-0.5) mg/dL AST (5-37) U/L ALT (0-40) U/L Total Protein (6.5-8.0) g/dL Albumin (3.5-5.0) g/dL Crossmatch 06/11/21 06/11/21 06/11/21 Range/Units 06:41 06:41 12:02 WBC 28.2 H (4.8-10.8) X10*3/uL RBC 3.00 L (4.60-5.80) X10*6/uL Hgb 8.8 L (14.0-18.0) g/dl Hct 26.0 L (42.0-52.0) % RDW 16.3 H (11.0-16.0) % Plt Count 102 L (160-400) X10*3/uL Immature Gran % (Auto) 3.9 H (0.0-0.4) % Neut % (Auto) 87.8 H (45-73) % Lymph % (Auto) 3.2 L (20-40) % Lymph # (Auto) 0.9 L (1.2-4.9) X10*3/uL [place] # (Auto) 1.4 H (0.1-1.2) X10*3/uL Abs Immat Gran (auto) 1.09 H (0.00-0.03) X10*3/uL Absolute Neuts (auto) 24.8 H (2.0-8.3) x10*3/uL Sodium 133 L (135-145) mmol/L Carbon Dioxide 21 L (22-29) mmol/L BUN 126 H (9-16) mg/dL Creatinine 1.90 H (0.5-1.4) mg/dL POC Glucose 287 H (60-115) mg/dL Random Glucose 281 H (60-115) mg/dL Lactic Acid (0.5-2.0) mmol/L Calcium 7.9 L D (8.4-10.2) mg/dL Magnesium 3.3 H (1.6-2.6) mg/dL Direct Bilirubin (0.0-0.5) mg/dL AST 41 H D (5-37) U/L ALT (0-40) U/L Total Protein 4.5 L (6.5-8.0) g/dL Albumin 2.7 L (3.5-5.0) g/dL Crossmatch Short CBC 06/10/21 06/10/21 06/11/21 Range/Units 13:26 18:18 01:01 WBC 26.7 H 22.9 H (4.8-10.8) X10*3/uL Hgb 10.6 L 7.1 L D 7.8 L (14.0-18.0) g/dl Hct 32.1 L 21.1 L D 23.0 L (42.0-52.0) % Plt Count 176 110 L D (160-400) X10*3/uL 06/11/21 06/11/21 Range/Units 04:08 06:41 WBC 28.2 H (4.8-10.8) X10*3/uL Hgb 9.2 L 8.8 L (14.0-18.0) g/dl Hct 27.3 L 26.0 L (42.0-52.0) % Plt Count 102 L (160-400) X10*3/uL BMP 06/10/21 06/11/21 13:27 06:41 Sodium 130 L 133 L Potassium 4.3 4.2 Chloride 98 104 Carbon Dioxide 19 L 21 L BUN 124 H D 126 H Creatinine 2.15 H 1.90 H Calcium 7.2 L 7.9 L D Liver Function 06/10/21 06/11/21 Range/Units 13:26 06:41 Total Bilirubin 0.8 0.7 (0.0-1.0) mg/dL Direct Bilirubin 0.6 H (0.0-0.5) mg/dL AST 81 H 41 H D (5-37) U/L ALT 50 H 33 (0-40) U/L Alkaline Phosphatase 117 D 71 D (39-117) U/L Albumin 2.6 L D 2.7 L (3.5-5.0) g/dL Urine 06/09/21 Range/Units 00:12 Urine Color DK YELLOW Urine Appearance HAZY Urine pH 5.5 (5.0-8.0) Ur Specific [place] >= 1.030 H (1.005-1.025) Urine Protein TRACE (NEG-TRACE) MG/DL Urine Glucose (UA) NEG (NEG) MG/DL All other labs normal. Assessment and Plan (1) GI bleed: Status: Acute His EGD shows multiple ulcers but most likely source was one in the 1st/ 2ndart of the duodenum. This started after was placed on foranticoag ulation with Lovenox for possible PE. This has been controlled endoscopically. His Hg is to be followed. He is already on proton pump inhibitors. All anticoagulants should be held at this time. Transfusion should be done as needed. If with persistent significant bleeding, may need laparotomy, control of bleeders in the OR. Procedures Date of Service Date of Service: 06/11/21
--- NOTE | 2021-06-11 12:42 | OP_ITS ---
SURGEON: Marcos Mae MD INDICATIONS: Upper GI bleeding. PREOPERATIVE DIAGNOSIS: POSTOPERATIVE DIAGNOSIS: PROCEDURE PERFORMED: Upper endoscopy with control of hemorrhage. ESTIMATED BLOOD LOSS: COMPLICATIONS: ANESTHESIA: Medications, general anesthesia. ASSISTANTS: SPECIMENS: DESCRIPTION OF PROCEDURE: History and physical performed. The risks and benefits of the procedure were explained to the patient. Informed consent was obtained. The patient was placed in the left lateral decubitus position. The Olympus video gastroscope was introduced into the esophagus, stomach, and duodenum. Examination was performed. The scope was removed. He tolerated the procedure well and was returned to the ICU in stable condition. FINDINGS: Esophagus: The esophagus was normal. There was no esophagitis. Stomach: Stomach showed some old blood but no active bleeding site. There were some pale areas in the body consistent with atrophic gastritis. Duodenum: Multiple duodenal ulcers were present. There was a large amount of bright red blood and clotted blood in the bulb and second portion. This made the examination extended and difficult. Bright red pulsatile bleeding was identified from an ulcer measuring approximately 15 x 20 mm at the junction of the bulb and second portion in the 6 o'clock position. There was a large amount of adherent clot. The hemorrhage was controlled with injection of 3 mL of epinephrine with good mucosal blanching in the vicinity of the ulcer (dilution 1:10,000). Next, multiple applications of the heater probe were used to cauterize a visible vessel at the lateral aspect of the ulcer after removing large amounts of adherent clotted blood to identify the extent of the ulcer. Hemostasis was excellent at the termination of the procedure. He remained stable hemodynamically and was transferred to the intensive care unit intubated. The procedure was extended and difficult. IMPRESSION: Upper gastrointestinal bleeding from duodenal ulcer with visible vessel as above. RECOMMENDATION: 1. Monitor carefully in the ICU, serial hematocrits. 2. Surgical consultation has been obtained with Dr. Mendoza. 3. No NSAIDs or anticoagulation. 4. Continue Protonix infusion. 5. Consider repeat upper endoscopy if signs of active bleeding, other options would include surgery or attempt at embolization with interventional radiology. MD YAMILKA Wynne/JAYJAY / [id number] MTDD
[2021-06-11 12:54] LABS: VBG Base Excess -6.6 mmol/L; VBG pCO2 44 mmHg; VBG pH 7.25 (7.32-7.43); VBG pO2 54 mmHg
[2021-06-11 12:58] LABS: VBG Base Excess -6.8 mmol/L; VBG HCO3 19 mmol/L (22-26); VBG pCO2 42 mmHg; VBG pH 7.26 (7.32-7.43); VBG pO2 56 mmHg
[2021-06-11 12:59] LABS: Mean Corpuscular HGB Conc 33.3 g/dl (31.0-36.0); Mean Corpuscular Hemoglobin 29.8 pg (27.0-33.0); Mean Corpuscular Volume 89.3 fL (80.0-98.0); Mean Platelet Volume 11.9 fL (9.4-12.4); NRBC Pct Auto 0.1 /100WBC (0.0-0.2); Platelet Count 109 X10*3/uL (160-400); Red Blood Count 2.25 X10*6/uL (4.60-5.80); Red Cell Distribution Width 16.5 % (11.0-16.0); White Blood Count 29.2 X10*3/uL (4.8-10.8)
[2021-06-11 13:06] LABS: Hemoglobin 6.7 g/dl (14.0-18.0)
[2021-06-11 13:07] LABS: Hematocrit 20.1 % (42.0-52.0); Lactic Acid 1.1 mmol/L (0.5-2.0)
[2021-06-11 13:13] LABS: D Dimer High Sensitivity 981 NG/ML
[2021-06-11 13:16] LABS: Albumin Level 3.3 g/dL (3.5-5.0); Anion Gap 14 (12-20); C Reactive Protein 6.57 mg/dL (< or = 0.50); Calcium 7.2 mg/dL (8.4-10.2); Carbon Dioxide 21 mmol/L (22-29); Chloride 103 mmol/L (96-108); Creatinine Clr Calc Pharmacy 40.8; Estimated Glomerular Filt Rate 30; Glucose Random 367 mg/dL (60-115); Lactate Dehydrogenase 287 U/L (118-273); Phosphorus 5.3 mg/dL (2.7-4.5); Potassium 4.9 mmol/L (3.3-5.1); Sodium 133 mmol/L (135-145)
[2021-06-11 13:16] LABS: Venous Blood Gas Refer to POC result
[2021-06-11 13:25] LABS: Blood Urea Nitrogen 132 mg/dL (9-16)
--- NOTE | 2021-06-11 13:28 | PM.CCPN ---
Subjective Subjective Date of Service: 06/11/21 Interval History: Mr. Slade was admitted to the ICU early this morning with hemorrhagic shock secondary to upper GI bleeding. Briefly, the patient is a 76 yo M with a past medical history of obesity, hypertension, hyperlipidemia, diabetes, BPH, and arthritis. The pt presented to the hospital on Jun 08 with a chief complaint of generalized weakness x past week or two, accord to his who I spoke with this morning.? Not feeling well, shortness of breath and dyspnea on exertion.? Sx gradually worsening.? Poor apetite.? Denied chest pain, palpitations, lightheadedness. dizziness. ?Complained of cough but no sputum production. ?Was vaccinated including a booster dose. In the ED, the patient was in Afib w RVR, Sat 94% on room air (baseline 98% on room air); blood pressure 107/48; bilateral rales and wheezing.? COVID-19 positive; CXR showed nonspecific increased bibasilar markings with blunting of both angles.? WBC 19, DDimer 3200, BUN/creat 91/2.7 (baseline about 20/1.1).? Trop 46, BNP 300. Tx with diltiazem, metoprolol, and moderate IVF and admitted to Medicine.? Remained in the ED because no beds.? Put on full dose Lovenox.? Blood cx came back positive for Staph aureus.? Sensitivities pending.? On vanco.? Renal indices not signif improved with initial tx.? He was running hypotensive into the 80?s that night but the next day, BP was 100-120 systolic range.? Perfusion scan showed low probability. Yesterday morning BP dropped into 90s.? Hb w hemoglobin vicky to 9.2. ?as 11.2, down from 13.1.? Around noon had a large black BM.? HR 96, BP dropped to 86/36.? Remained awake, alert.? Started vol resusc.? Next BP up to 113/74.? Repeat labs and T&C.? Hb came back 10.6, BUN/creat 124/2.1, lactate 2.6, alb 2.6.? I looked at him in the early afternoon.? Blood pressure was in the 80s, but had not had volume resuscitation yet.? His mentation was normal and quite vigorous.? He was well enough to be assisted ambulatory to the bathroom. He was volume resuscit to 9.2.? ated with colloid and crystalloid.? Follow-up hemoglobin at 6pm last night came back at 7.1.? He was given 2 units of RBCs.? Blood pressure came up to the 110s, but then dropped again into the 70s at midnight this morning. ?Follow-up hemoglobin was 7.8.? He was transferred to the ICU, and given another unit of blood, along with protamine 25 mg.? Hemoglobin vicky to 9.2, and then 8.8 this morning at 6am, with BP up to 114/47. He was then taken to the OR by Dr. Mae for EGD under GETA.? I went to the OR with him.? Found multiple duodenal ulcers, w active bleeding from a visible vessel in a 15x20 mm ulcer at the junction between bulb and second duodenum.? Bleeding controlled with 3ml epinephrine and gold probe cautery. The patient was brought back to the ICU still intubated.? Blood pressure 90s.? A CVL was placed immed, with BP dropping into the 50s.? CVP at least 10cm.? Levophed was started.? HB came back 6.7.? He was transfused 2units rapidly.? Levophed dose req down from 0.4ug to 0.25ug. LABORATORY DATA:? Below.? Notably, Lactate normal.? Creatinine bumped slightly.? Ddimer down to 981. My bedside ECHOCARDIOGRAM:? Image quality:? fair-poor.? LV function okay (accurate quantitative assessment limited by atrial fibrillation with RVR).? No RWMAs.? RV normal or top normal size.? Unable to visualize any valves or IVC. IMPRESSION: 1. Large duodenal ulcer bleed w hemorrhagic shock.? Continue high dose PPI.? Freq Hb checks.? May have to go back for a second look.? Surg consult. 2. Hypotension.? Based on the CVP from the CVL placement and all the volume he?s had, I?m fairly certain he?s euvolemic.? Realizing the pressing need to keep him as dry as possible to forestall COVID resp failure, need to limit crystalloid resusc.? Need to get a good echo tomorrow. 3. ROBIN.? He does not normally run a high renal ratio, so his admitting numbers are highly suggestive of hypovolemia.? And the fact that his creat has not improved more than it has is concerning.? Creat bump today may be ischemic ATN. 4. Afib w RVR.? Started esmolol.? Hr now 90s. 5. Acute resp failure.? We?ll keep him intubated till we make sure he?s not bleeding, and his airway is safe. 6. COVID.? Hold steroids.? Giving IV Pepcid.? Would also give Vit D 50 mg daily, Vit C 1000 mg bid, Zinc 220 mg bid, and melatonin 6mg qhs when enteral route is established. 7. Troponin bump.? Now coming down from peak of 900 two days ago.? Check EKG. Critical care time (inlcud chart rev, hosp course summary, OR time, ana cristina d/w Dr. Mae and Dr. Mendoza, ana cristina lab reviews; excluding procedures):? 120+ min Critical Care Time (minutes): 120 Physical Exam Vital Signs: Vital Signs: Last Vital Signs Temp 97.9 F 06/11/21 13:19 Pulse 118 H 06/11/21 13:19 Resp 15 06/11/21 13:19 BP 107/61 06/11/21 13:19 Pulse Ox 95 06/11/21 13:00 Oxygen Flow Rate 55 06/11/21 10:25 BMI result Body Mass Index 38.2 Objective Data Labs CBC & Chem 7: 06/11/21 15:13 06/11/21 12:43 Labs: Laboratory Results - last 24 hr 06/10/21 06/10/21 06/10/21 13:26 13:26 13:26 WBC 26.7 H RBC 3.58 L Hgb 10.6 L Hct 32.1 L MCV 89.7 MCH 29.6 MCHC 33.0 RDW 15.1 Plt Count 176 MPV 11.4 Immature Gran % (Auto) Neut % (Auto) Lymph % (Auto) [place] % (Auto) Eos % (Auto) Baso % (Auto) Lymph # (Auto) [place] # (Auto) Eos # (Auto) Baso # (Auto) Abs Immat Gran (auto) Absolute Neuts (auto) Absolute Nucleated RBC 0.000 Nucleated RBC % (auto) 0.0 Smear Tech's Comments PT INR APTT D-Dimer High Sensitivty VBG pH VBG pCO2 VBG pO2 VBG HCO3 VBG O2 Saturation VBG Base Excess Sodium Potassium Chloride Carbon Dioxide Anion Gap BUN Creatinine Estim Creat Clear Calc Estimated GFR POC Glucose Random Glucose Lactic Acid 2.6 H* Lactic Acid F/U @ 2Hr Calcium Phosphorus Magnesium Total Bilirubin 0.8 Direct Bilirubin 0.6 H AST 81 H ALT 50 H Alkaline Phosphatase 117 D Lactate Dehydrogenase C-Reactive Protein Total Protein 5.1 L D Albumin 2.6 L D Triglycerides Cholesterol LDL Cholesterol, Calc HDL Cholesterol Stool Occult Blood Blood Type Antibody Screen Crossmatch 06/10/21 06/10/21 06/10/21 13:26 13:27 13:28 WBC RBC Hgb Hct MCV MCH MCHC RDW Plt Count MPV Immature Gran % (Auto) Neut % (Auto) Lymph % (Auto) [place] % (Auto) Eos % (Auto) Baso % (Auto) Lymph # (Auto) [place] # (Auto) Eos # (Auto) Baso # (Auto) Abs Immat Gran (auto) Absolute Neuts (auto) Absolute Nucleated RBC Nucleated RBC % (auto) Smear Tech's Comments PT INR APTT D-Dimer High Sensitivty VBG pH VBG pCO2 VBG pO2 VBG HCO3 VBG O2 Saturation VBG Base Excess Sodium 130 L Potassium 4.3 Chloride 98 Carbon Dioxide 19 L Anion Gap 17 BUN 124 H D Creatinine 2.15 H Estim Creat Clear Calc 37.0 Estimated GFR 30 POC Glucose Random Glucose 232 H D Lactic Acid Lactic Acid F/U @ 2Hr Calcium 7.2 L Phosphorus Magnesium Total Bilirubin Direct Bilirubin AST ALT Alkaline Phosphatase Lactate Dehydrogenase C-Reactive Protein Total Protein Albumin Triglycerides 167 Cholesterol 103 D LDL Cholesterol, Calc 60 HDL Cholesterol 10 D Stool Occult Blood POSITIVE Blood Type O Positive Antibody Screen NEGATIVE Crossmatch See Detail 06/10/21 06/10/21 06/10/21 14:55 15:58 16:29 WBC RBC Hgb Hct MCV MCH MCHC RDW Plt Count MPV Immature Gran % (Auto) Neut % (Auto) Lymph % (Auto) [place] % (Auto) Eos % (Auto) Baso % (Auto) Lymph # (Auto) [place] # (Auto) Eos # (Auto) Baso # (Auto) Abs Immat Gran (auto) Absolute Neuts (auto) Absolute Nucleated RBC Nucleated RBC % (auto) Smear Tech's Comments PT INR APTT D-Dimer High Sensitivty VBG pH VBG pCO2 VBG pO2 VBG HCO3 VBG O2 Saturation VBG Base Excess Sodium Potassium Chloride Carbon Dioxide Anion Gap BUN Creatinine Estim Creat Clear Calc Estimated GFR POC Glucose 259 H 281 H Random Glucose Lactic Acid Lactic Acid F/U @ 2Hr 1.4 Calcium Phosphorus Magnesium Total Bilirubin Direct Bilirubin AST ALT Alkaline Phosphatase Lactate Dehydrogenase C-Reactive Protein Total Protein Albumin Triglycerides Cholesterol LDL Cholesterol, Calc HDL Cholesterol Stool Occult Blood Blood Type Antibody Screen Crossmatch 06/10/21 06/10/21 06/11/21 18:18 20:03 01:01 WBC 22.9 H RBC 2.57 L D Hgb 7.1 L D 7.8 L Hct 21.1 L D 23.0 L MCV 89.5 MCH 30.4 MCHC 33.9 RDW 15.4 Plt Count 110 L D MPV 11.7 Immature Gran % (Auto) 2.9 H Neut % (Auto) 88.0 H Lymph % (Auto) 3.4 L [place] % (Auto) 5.6 Eos % (Auto) 0.0 Baso % (Auto) 0.1 Lymph # (Auto) 0.8 L [place] # (Auto) 1.3 H Eos # (Auto) 0.0 Baso # (Auto) 0.0 Abs Immat Gran (auto) 0.67 H Absolute Neuts (auto) 20.2 H Absolute Nucleated RBC 0.000 Nucleated RBC % (auto) 0.0 Smear Tech's Comments VERIFIED PT INR APTT D-Dimer High Sensitivty VBG pH VBG pCO2 VBG pO2 VBG HCO3 VBG O2 Saturation VBG Base Excess Sodium Potassium Chloride Carbon Dioxide Anion Gap BUN Creatinine Estim Creat Clear Calc Estimated GFR POC Glucose 298 H Random Glucose Lactic Acid Lactic Acid F/U @ 2Hr Calcium Phosphorus Magnesium Total Bilirubin Direct Bilirubin AST ALT Alkaline Phosphatase Lactate Dehydrogenase C-Reactive Protein Total Protein Albumin Triglycerides Cholesterol LDL Cholesterol, Calc HDL Cholesterol Stool Occult Blood Blood Type Antibody Screen Crossmatch 06/11/21 06/11/21 06/11/21 04:08 04:08 05:27 WBC RBC Hgb 9.2 L Hct 27.3 L MCV MCH MCHC RDW Plt Count MPV Immature Gran % (Auto) Neut % (Auto) Lymph % (Auto) [place] % (Auto) Eos % (Auto) Baso % (Auto) Lymph # (Auto) [place] # (Auto) Eos # (Auto) Baso # (Auto) Abs Immat Gran (auto) Absolute Neuts (auto) Absolute Nucleated RBC Nucleated RBC % (auto) Smear Tech's Comments PT 12.9 INR 1.1 APTT 26.2 D-Dimer High Sensitivty VBG pH VBG pCO2 VBG pO2 VBG HCO3 VBG O2 Saturation VBG Base Excess Sodium Potassium Chloride Carbon Dioxide Anion Gap BUN Creatinine Estim Creat Clear Calc Estimated GFR POC Glucose 232 H Random Glucose Lactic Acid Lactic Acid F/U @ 2Hr Calcium Phosphorus Magnesium Total Bilirubin Direct Bilirubin AST ALT Alkaline Phosphatase Lactate Dehydrogenase C-Reactive Protein Total Protein Albumin Triglycerides Cholesterol LDL Cholesterol, Calc HDL Cholesterol Stool Occult Blood Blood Type Antibody Screen Crossmatch 06/11/21 06/11/21 06/11/21 06:41 06:41 12:02 WBC 28.2 H RBC 3.00 L Hgb 8.8 L Hct 26.0 L MCV 86.7 MCH 29.3 MCHC 33.8 RDW 16.3 H Plt Count 102 L MPV 11.9 Immature Gran % (Auto) 3.9 H Neut % (Auto) 87.8 H Lymph % (Auto) 3.2 L [place] % (Auto) 4.9 Eos % (Auto) 0.0 Baso % (Auto) 0.2 Lymph # (Auto) 0.9 L [place] # (Auto) 1.4 H Eos # (Auto) 0.0 Baso # (Auto) 0.1 Abs Immat Gran (auto) 1.09 H Absolute Neuts (auto) 24.8 H Absolute Nucleated RBC 0.000 Nucleated RBC % (auto) 0.0 Smear Tech's Comments PT INR APTT D-Dimer High Sensitivty VBG pH VBG pCO2 VBG pO2 VBG HCO3 VBG O2 Saturation VBG Base Excess Sodium 133 L Potassium 4.2 Chloride 104 Carbon Dioxide 21 L Anion Gap 12 BUN 126 H Creatinine 1.90 H Estim Creat Clear Calc 46.4 Estimated GFR 35 POC Glucose 287 H Random Glucose 281 H Lactic Acid Lactic Acid F/U @ 2Hr Calcium 7.9 L D Phosphorus Magnesium 3.3 H Total Bilirubin 0.7 Direct Bilirubin AST 41 H D ALT 33 Alkaline Phosphatase 71 D Lactate Dehydrogenase C-Reactive Protein Total Protein 4.5 L Albumin 2.7 L Triglycerides Cholesterol LDL Cholesterol, Calc HDL Cholesterol Stool Occult Blood Blood Type Antibody Screen Crossmatch 06/11/21 06/11/21 06/11/21 12:43 12:43 12:43 WBC 29.2 H RBC 2.25 L D Hgb 6.7 L* D Hct 20.1 L* D MCV 89.3 MCH 29.8 MCHC 33.3 RDW 16.5 H Plt Count 109 L MPV 11.9 Immature Gran % (Auto) Neut % (Auto) Lymph % (Auto) [place] % (Auto) Eos % (Auto) Baso % (Auto) Lymph # (Auto) [place] # (Auto) Eos # (Auto) Baso # (Auto) Abs Immat Gran (auto) Absolute Neuts (auto) Absolute Nucleated RBC 0.020 H Nucleated RBC % (auto) 0.1 Smear Tech's Comments PT INR APTT D-Dimer High Sensitivty 981 VBG pH VBG pCO2 VBG pO2 VBG HCO3 VBG O2 Saturation VBG Base Excess Sodium 133 L Potassium 4.9 Chloride 103 Carbon Dioxide 21 L Anion Gap 14 BUN 132 H Creatinine 2.16 H Estim Creat Clear Calc 40.8 Estimated GFR 30 POC Glucose Random Glucose 367 H* Lactic Acid Lactic Acid F/U @ 2Hr Calcium 7.2 L D Phosphorus 5.3 H Magnesium Total Bilirubin Direct Bilirubin AST ALT Alkaline Phosphatase Lactate Dehydrogenase 287 H C-Reactive Protein 6.57 H Total Protein Albumin 3.3 L D Triglycerides Cholesterol LDL Cholesterol, Calc HDL Cholesterol Stool Occult Blood Blood Type Antibody Screen Crossmatch 06/11/21 06/11/21 06/11/21 12:43 12:47 12:51 WBC RBC Hgb Hct MCV MCH MCHC RDW Plt Count MPV Immature Gran % (Auto) Neut % (Auto) Lymph % (Auto) [place] % (Auto) Eos % (Auto) Baso % (Auto) Lymph # (Auto) [place] # (Auto) Eos # (Auto) Baso # (Auto) Abs Immat Gran (auto) Absolute Neuts (auto) Absolute Nucleated RBC Nucleated RBC % (auto) Smear Tech's Comments PT INR APTT D-Dimer High Sensitivty VBG pH 7.25 L 7.26 L VBG pCO2 44 42 VBG pO2 54 56 VBG HCO3 TNP 19 L VBG O2 Saturation 74.0 76.0 VBG Base Excess -6.6 -6.8 Sodium Potassium Chloride Carbon Dioxide Anion Gap BUN Creatinine Estim Creat Clear Calc Estimated GFR POC Glucose Random Glucose Lactic Acid 1.1 Lactic Acid F/U @ 2Hr Calcium Phosphorus Magnesium Total Bilirubin Direct Bilirubin AST ALT Alkaline Phosphatase Lactate Dehydrogenase C-Reactive Protein Total Protein Albumin Triglycerides Cholesterol LDL Cholesterol, Calc HDL Cholesterol Stool Occult Blood Blood Type Antibody Screen Crossmatch Microbiology Microbiology Results: Microbiology 06/09/21 17:15 Blood - Venous Blood Culture - Preliminary Staphylococcus aureus 06/09/21 17:10 Blood - Venous Blood Culture - Preliminary Staphylococcus aureus 06/08/21 23:11 Blood - Venous Blood Culture - Final Staphylococcus aureus 06/08/21 23:11 Blood - Venous Blood Culture - Final Staphylococcus aureus Quality Stroke Does the patient have a stroke diagnosis?: No VTE Prior VTE?: No VTE Risk Level:: Medical - moderate - high VTE Device Contraindication: Treatment Not Indicated VTE Drug Contraindication: Treatment Not Indicated Critical Care Time Critical Care Time (minutes): 120
[2021-06-11] MEDS: Hydrocortisone Sod Succ/PF 100 MG VIAL IVPUSH (13:31)
[2021-06-11] MEDS: Insulin Regular/NS 100 UNIT/100 ML PLAST..BAG IVCONT (13:31)
[2021-06-11] MEDS: Famotidine/PF 20 MG/2 ML VIAL IVPUSH (13:33)
[2021-06-11 14:16] LABS: Troponin-I High Sensitivity 323.8 ng/L (<3.5-35.0)
[2021-06-11 14:38] LABS: Ferritin 1740 ng/mL (20-250)
[2021-06-11] MEDS: propofoL 1,000 MG/100 ML VIAL 23 MG IVCONT (14:57)
[2021-06-11 15:11] LABS: Glucose, Whole Blood 337 mg/dL (60-115)
[2021-06-11 15:22] LABS: Hematocrit 27.3 % (42.0-52.0); Hemoglobin 9.1 g/dl (14.0-18.0)
[2021-06-11] MEDS: Esmolol HCl/NaCl Iso 2,500 MG/250 ML IV.SOLN 57.51 MG IVCONT ×3 (16:10→23:57)
[2021-06-11] MEDS: vancomycin HCL 1,000 MG in 0.9 % Sodium Chloride 250 ML 270 MG IV (16:10)
--- NOTE | 2021-06-11 16:58 | ECG_ITS ---
Test Reason : cp Blood Pressure : / mmHG Vent. Rate : 081 BPM Atrial Rate : 000 BPM P-R Int : 000 ms QRS Dur : 112 ms QT Int : 380 ms P-R-T Axes : 000 025 002 degrees QTc Int : 441 ms Atrial fibrillation Incomplete left bundle branch block Nonspecific T wave abnormality Abnormal ECG When compared with ECG of 08-JUN-2021 17:28, Vent. rate has decreased BY 71 BPM Incomplete left bundle branch block is now Present Referred By: Napoleon Guillaume Electronically Signed By:JOLIE SONG
[2021-06-11 17:06] LABS: Glucose, Whole Blood 257 mg/dL (60-115)
[2021-06-11 17:25] LABS: Hematocrit 26.8 % (42.0-52.0); Hemoglobin 8.9 g/dl (14.0-18.0)
--- NOTE | 2021-06-11 17:25 | PM.EVENT ---
Event Note Date of Service: 06/11/21 Event Note: remains on vent no documented eadditional episodes of bleeding BP ok, on low dose of epi Hg 9.1 follow H/H transfuse as needed no NSAIDS/anticao continue PPI
[2021-06-11 17:36] LABS: INTERNATIONAL NORM RATIO 1.2 (0.9-1.1); Prothrombin Time 13.1 SEC (9.9-13.0)
[2021-06-11 17:59] LABS: Troponin-I High Sensitivity 261.5 ng/L (<3.5-35.0)
[2021-06-11 19:03] LABS: Glucose, Whole Blood 242 mg/dL (60-115)
[2021-06-11] MEDS: propofoL 1,000 MG/100 ML VIAL 30.67 MG IVCONT (19:39)
[2021-06-11 20:35] LABS: Hemoglobin 10.2 g/dl (14.0-18.0); Mean Corpuscular Hemoglobin 30.2 pg (27.0-33.0); Mean Corpuscular Volume 88.8 fL (80.0-98.0); Mean Platelet Volume 11.6 fL (9.4-12.4); NRBC Pct Auto 0.1 /100WBC (0.0-0.2); Red Blood Count 3.38 X10*6/uL (4.60-5.80); White Blood Count 27.1 X10*3/uL (4.8-10.8)
[2021-06-11 20:40] LABS: Glucose, Whole Blood 225 mg/dL (60-115)
[2021-06-11 20:40] LABS: Glucose, Whole Blood 56 mg/dL (60-115)
[2021-06-11 20:55] LABS: Platelet Count 91 X10*3/uL (160-400)
[2021-06-11] MEDS: propofoL 1,000 MG/100 ML VIAL 26.84 MG IVCONT (22:51)
[2021-06-11 23:01] LABS: Glucose, Whole Blood 209 mg/dL (60-115)
[2021-06-12] VITALS (31 sets, daily range): BP systolic 108–173; BP diastolic 41–67; PULSE 66–110; RESP 14–22; TEMP 35–37.3; O2SAT 96–99; BMI 39.2
[2021-06-12 01:02] LABS: Glucose, Whole Blood 170 mg/dL (60-115)
[2021-06-12] MEDS: propofoL 1,000 MG/100 ML VIAL 26.84 MG IVCONT (01:42)
[2021-06-12 03:10] LABS: Glucose, Whole Blood 159 mg/dL (60-115)
[2021-06-12] MEDS: Pantoprazole Sodium 80 MG in 0.9 % Sodium Chloride 80 ML 10 MG IV ×2 (04:55→15:10)
[2021-06-12] MEDS: Esmolol HCl/NaCl Iso 2,500 MG/250 ML IV.SOLN 57.51 MG IVCONT ×2 (04:55→08:43)
[2021-06-12] MEDS: 0.9 % Sodium Chloride Flush 3 ML SYRINGE IVFLUSH ×3 (04:56→16:43)
[2021-06-12] MEDS: Insulin Regular/NS 100 UNIT/100 ML PLAST..BAG IVCONT (05:06)
[2021-06-12] MEDS: fentaNYL citrate/PF 100 MCG/2 ML VIAL IVPUSH ×3 (05:09→13:48)
[2021-06-12 05:52] LABS: VBG Base Excess -4.7 mmol/L; VBG HCO3 20 mmol/L (22-26); VBG pCO2 38 mmHg; VBG pH 7.33 (7.32-7.43); VBG pO2 53 mmHg
[2021-06-12 05:58] LABS: Venous Blood Gas Refer to POC result
[2021-06-12 06:00] LABS: Glucose, Whole Blood 162 mg/dL (60-115)
[2021-06-12] MEDS: propofoL 1,000 MG/100 ML VIAL 23 MG IVCONT ×2 (06:08→10:32)
[2021-06-12 06:10] LABS: Hematocrit 30.3 % (42.0-52.0); Hemoglobin 10.2 g/dl (14.0-18.0); Mean Corpuscular HGB Conc 33.7 g/dl (31.0-36.0); Mean Corpuscular Hemoglobin 29.7 pg (27.0-33.0); Mean Corpuscular Volume 88.1 fL (80.0-98.0); NRBC Pct Auto 0.1 /100WBC (0.0-0.2); Red Blood Count 3.44 X10*6/uL (4.60-5.80); Red Cell Distribution Width 16.4 % (11.0-16.0); White Blood Count 23.9 X10*3/uL (4.8-10.8)
[2021-06-12 06:11] LABS: Platelet Count 90 X10*3/uL (160-400)
[2021-06-12 06:38] LABS: Band Neutrophils Percent 4 % (3-5); Metamyelocytes Absolute 0.7 X10*3/uL; Metamyelocytes Percent 3 %; Monocytes Percent Manual 4 % (2-11); Neutrophils Absolute Manual 22.2 X10*3/uL (2.0-8.3); Neutrophils Percent Manual 89 % (45-73)
[2021-06-12 06:39] LABS: Hypochromasia 1+ (5-14) /OIF; Platelet Estimate SLIGHTLY DECREASED (NORMAL); Platelet Morphology Comment NORMAL; Polychromasia 1+ (0-2) /OIF; RBC Morphology NOTED
[2021-06-12 06:47] LABS: Anion Gap 12 (12-20); Calcium 7.4 mg/dL (8.4-10.2); Carbon Dioxide 22 mmol/L (22-29); Chloride 110 mmol/L (96-108); Creatinine Clr Calc Pharmacy 46.2; Estimated Glomerular Filt Rate 34; Glucose Random 162 mg/dL (60-115); Sodium 140 mmol/L (135-145)
--- NOTE | 2021-06-12 07:00 | CA_ITS ---
Transthoracic Echocardiogram Patient (Last, First, Middle): Dyllan Slade E Gender: Male Date of : 1945 Age: 76 Procedure Date: 06/12/2021 Procedure Type: Transthoracic Echocardiogram Location: ICU Height: 182.88 cm Weight: 130.64 kg BSA: 2.49 m2 Heart Rate: bpm BP: 108 / 50 mmHg Leak Detector: SHERIF Referring MD: Delfina Noland MD Symptoms: new onset at fib/rt heart strain ? PE Study Quality: Fair/Contrast ECG Rhythm: Sinus Conclusions: - The left ventricular systolic function is normal. The visually estimated ejection fraction is between 60-65%. - Moderately increased right ventricular cavity size. There is normal right ventricular systolic function. - Aortic valve sclerosis but no significant stenosis. - There is no mitral valve regurgitation. - Small plaque is seen in the sino tubular ridge. Findings Procedure Information Contrast agent, definity, is being given per protocol without apparent complications. Left Ventricle Normal left ventricular cavity size. There is mildly increased left ventricular wall thickness. The left ventricular systolic function is normal. The visually estimated ejection fraction is between 60-65%. There is no evidence of regional wall motion abnormalities. Diastolic function is normal for age. Right Ventricle Moderately increased right ventricular cavity size. There is normal right ventricular systolic function. Atria Both atria are normal in size. Aortic Valve There is moderate calcification of the aortic valve. The peak aortic velocity is 2.63 m/s with a calculated peak gradient of 28 mmHg. The mean gradient is 13 mmHg. There is mild aortic valve regurgitation. Aortic valve sclerosis but no significant stenosis. Mitral Valve The mitral valve appears normal. There is no mitral valve regurgitation. There is no mitral valve stenosis. Pulmonic Valve The pulmonic valve was not well visualized. Tricuspid Valve Normal tricuspid valve structure. There is trace tricuspid valve regurgitation. The pulmonary artery systolic pressure is normal. Great Vessels The aortic annulus, sinuses of valsalva, and asc aorta are normal in size. Small plaque is seen in the sino tubular ridge. Venous The inferior vena cava is normal in size and collapses less than 50% with inspiration. Pericardium/Pleural There is no evidence of pericardial effusion. Prior Study Comparison No prior study available for comparison. Measurements 2D Linear Measurements IVSd: 1.17 0.6-0.9/0.6-1.0 cm LVIDd: 5.08 3.9-5.3/4.2-5.9 cm LVIDd Index: 2.04 2.4-3.2/2.2-3.1 cm/m2 LVIDs: 2.93 2.0-3.6 cm LVPWd: 1.11 0.7-1.1 cm Ao Root: 3.80 2.1-3.5 cm LA Diam: 2.60 2.7-3.8/3.0-4.0 cm LAIDs Index: 1.04 1.5-2.3 cm/m2 LV Mass: 278.30 67-162/88-224 g LV Mass Index: 111.77 43-95/49-115 g/m2 LVOT Diam: 2.40 3.0+(-)1.3 cm Mitral Valve MV Pk E: 0.80 MV PK A: 1.02 MV Decel Time: 254.00 E/A: 0.80 E'Lateral: 8.16 E'Medial: 8.05 E/E' Med: 9.90 E/E' Lat: 9.80 PHT: 74.00 MVA PHT: 2.97 Decel Menard: 3.14 Aortic Valve AoV Pk Jose Francisco: 2.63 AoV Mn Jose Francisco: 1.63 AoV VTI: 0.44 AoV Pk Grad: 28.00 Aov Mn Grad: 13.00 PA Cont.VTI: 3.07 LVOT LVOT Pk [place]: 1.61 LVOT Mn Jose [place]: 1.03 LVOT VTI: 0.30 LVOT Pk Grad: 10.00 LVOT Mn Grad: 5.00 LVOT Diam: 2.40 LVOT Area: 4.52 Diastolic Function MV Pk E: 0.80 MV Pk A: 1.02 E/A: 0.80 E'Medial: 8.05 E/E' Med: 9.90 E' Laterial: 8.16 E/E' Lat: 9.80 Right Ventricle TAPSE (mm): 2.44 TVS' Jose Francisco: 18.70 Tricuspid Valve TR Pk Jose Francisco: 1.94 TR Pk Grad: 15.00 RA Press: 8.00 Great Vessels Aorta Ao Root-2D: 3.80 2.0-3.7 cm Ao Asc: 3.50 2.1-3.4 cm Updated in Other Vendor System with Status of Final Aakash Chan MD electronically signed on 06/12/2021 2:10:09 PM with status of Final
[2021-06-12 07:12] LABS: Blood Urea Nitrogen 117 mg/dL (9-16)
[2021-06-12 07:13] LABS: Glucose, Whole Blood 139 mg/dL (60-115)
--- NOTE | 2021-06-12 07:27 | PC.NURSE ---
Assumed care from NOAH Wilde, at 19:00. Patient was agitated and pulling on ETT initially, dislodged ETT to 23 cm from 25 cm, and medicated for pain and titrated propofol up, and discussed with PA and with RT, and ETT was re-placed at 25 cm at the lip by RT, with good effect. Patient remains in restraints. Patient was then sedated on Propofol at 30 mcg/kg/min, and medicated for pain per nonverbal signs of pain with 100 mcg PRN doses of fentanyl, particularly in corrolation with nursing care and turning, with good effect. Patient remains intubated at this time with #7.5 ett, 25 cm LUIS E, AC settings of rate 14; TV 500; peep 10; FiO2 45%; inline secretions thin and clear, oral secretions nominal; patient lung sounds dim at bases, SpO2 in 90's. Patient with distant heart sounds, BP very labile in relation mostly to technical problems with air bubble alarms in the Levophed pump, repeatedly trouble-shooting with SBP as low as 56 at one point related to problems with pump. Also, on esmolol for rate control in atrial fibrillation on monitor, when this is paused, his BP rises significantly to 200/150 at one reading. PA was notified of these technical problems. Maintained on 0.18 mcg/kg/min of levophed and 75 of esmolol gtt. Insulin gtt titrated per PA, running at 32 U/hour now, POC has trended down overnight, now in 150-170 range. Patient with no OGT, and no nutrition or dextrose running, day shift nurse to follow is aware. Patient with large obese round semi-firm abdomen, faint bowel sounds, protuberent umbilicus, caput medusae appearing vasculature on abdomen, active GIB now status post Endoscopy with banding and has had 6 units of packed RBCs so far this admission. H/H 10.2/30.3 this morning and remarkably stable at this time; but patient did have copious amount of bloody maroon/black loose/semi-liquid bowel movement this morning. Patient with chronic lara, putting out about 60 cc/hour clear yellow urine. Afebrile at this time, continues on Vancomycin related to previous fever of unknown etiology. Skin with scattered scabs on bilateral legs and pink blanchable buttocks.
[2021-06-12] MEDS: Famotidine/PF 20 MG/2 ML VIAL IVPUSH (08:41)
--- NOTE | 2021-06-12 09:02 | PM.PNGS ---
Subjective Subjective Date of Service: 06/13/21 Interval history: no events reported overnight still on vent BP has been stable Physical Exam Vital Signs: Vital Signs: Last Vital Signs Temp 98.6 F 06/12/21 08:00 Pulse 89 06/12/21 08:00 Resp 22 H 06/12/21 08:00 BP 120/51 L 06/12/21 08:00 Pulse Ox 97 06/12/21 08:00 Oxygen Flow Rate 55 06/11/21 10:25 BMI result Body Mass Index 39.2 Const: Other: on ventilator, sedated Objective Data Active Medications Atorvastatin Calcium (Atorvastatin Calcium 10 Mg Tablet) 10 mg PO BEDTIME [facility] Last Admin: 06/11/21 20:07 Dose: Not Given Documented by: LENNY Non-Admin Reason: NPO Famotidine (Famotidine/Pf 20 Mg/2 Ml Vial) 20 mg IVPUSH DAILY [facility] Last Admin: 06/12/21 08:41 Dose: 20 mg Documented by: RALPH Fentanyl (Fentanyl Citrate/Pf 100 Mcg/2 Ml Vial) 50 mcg IVPUSH Q5M PRN; Protocol PRN Reason: pain or WOB Fentanyl (Fentanyl Citrate/Pf 100 Mcg/2 Ml Vial) 100 mcg IVPUSH Q5M PRN; Protocol PRN Reason: pain or WOB Last Admin: 06/12/21 05:09 Dose: 100 mcg Documented by: LENNY Vancomycin HCl 1,000 mg/ (Sodium Chloride) 270 mls @ 270 mls/hr IV Q24H [facility] Last Infusion: 06/11/21 17:17 Dose: 0 mls/hr Documented by: BALDEMAR Fentanyl (Sublimaze/Ns) 1,000 mcg in 100 mls @ 0 mls/hr IVCONT .Q0M [facility]; Protocol Norepinephrine Bitartrate (Levophed) 8 mg in 250 mls @ 0 mls/hr IVCONT .Q0M [facility]; Protocol Last Titration: 06/12/21 05:30 Dose: 0.2 mcg/kg/min, 47.93 mls/hr Documented by: LENNY Propofol (Diprivan) 1,000 mg in 100 mls @ 0 mls/hr IVCONT .Q0M [facility]; Protocol Last Admin: 06/12/21 06:08 Dose: 30 mcg/kg/min, 23 mls/hr Documented by: LENNY Esmolol HCl (Brevibloc/Nacl) 2,500 mg in 250 mls @ 0 mls/hr IVCONT .Q0M [facility]; Protocol Last Admin: 06/12/21 08:43 Dose: 75 mcg/kg/min, 57.51 mls/hr Documented by: RALPH Insulin Human Regular (Myxredlin) 100 unit in 100 mls @ 0 mls/hr IVCONT .Q0M [facility] Last Infusion: 06/12/21 07:30 Dose: 1 unit/hr, 1 mls/hr Documented by: RALPH Cosigned by: BRANDON Pantoprazole Sodium 80 mg/ (Sodium Chloride) 100 mls @ 10 mls/hr IV .Q10H [facility] Last Admin: 06/12/21 04:55 Dose: 8 mg/hr, 10 mls/hr Documented by: LENNY Pharmacy Consult (Consult Rx Perform Med Rec) 1 each MISCELLANE ONCE PRN PRN Reason: Consult order Pharmacy Consult (Consult Rx Vancomycin Dosing) 1 each MISCELLANE DAILY PRN PRN Reason: Consult order Sodium Chloride (0.9 % Sodium Chloride Flush 3 Ml Syringe) 3 ml IVFLUSH QSHIFT [facility] Last Admin: 06/12/21 08:41 Dose: 3 ml Documented by: RALPH Tamsulosin HCl (Tamsulosin Hcl 0.4 Mg Capsule) 0.4 mg PO BEDTIME [facility] Last Admin: 06/11/21 20:07 Dose: Not Given Documented by: LENNY Non-Admin Reason: NPO Labs CBC & Chem 7: 06/13/21 05:36 06/13/21 05:36 Labs: Laboratory Results - last 24 hr 06/10/21 06/11/21 06/11/21 13:26 12:02 12:43 MCV 89.3 MCH 29.8 MCHC 33.3 RDW 16.5 H Plt Count 109 L MPV 11.9 Immature Gran % (Auto) Neut % (Auto) Lymph % (Auto) [place] % (Auto) Eos % (Auto) Baso % (Auto) Lymph # (Auto) [place] # (Auto) Eos # (Auto) Baso # (Auto) Abs Immat Gran (auto) Absolute Neuts (auto) Absolute Nucleated RBC 0.020 H Nucleated RBC % (auto) 0.1 Neutrophils % (Manual) Band Neutrophils % Monocytes % (Manual) Metamyelocytes % Abs Neuts (Manual) Monocytes # (Manual) Metamyelocytes # Platelet Estimate Plt Morphology Comment RBC Morphology Polychromasia Hypochromasia PT INR D-Dimer High Sensitivty VBG pH VBG pCO2 VBG pO2 VBG HCO3 VBG O2 Saturation VBG Base Excess Anion Gap Estim Creat Clear Calc Estimated GFR POC Glucose 287 H Random Glucose Lactic Acid Calcium Phosphorus Ferritin Lactate Dehydrogenase Troponin I High Sens C-Reactive Protein Albumin Blood Type O Positive Antibody Screen NEGATIVE Crossmatch See Detail 06/11/21 06/11/21 06/11/21 12:43 12:43 12:43 MCV MCH MCHC RDW Plt Count MPV Immature Gran % (Auto) Neut % (Auto) Lymph % (Auto) [place] % (Auto) Eos % (Auto) Baso % (Auto) Lymph # (Auto) [place] # (Auto) Eos # (Auto) Baso # (Auto) Abs Immat Gran (auto) Absolute Neuts (auto) Absolute Nucleated RBC Nucleated RBC % (auto) Neutrophils % (Manual) Band Neutrophils % Monocytes % (Manual) Metamyelocytes % Abs Neuts (Manual) Monocytes # (Manual) Metamyelocytes # Platelet Estimate Plt Morphology Comment RBC Morphology Polychromasia Hypochromasia PT INR D-Dimer High Sensitivty 981 VBG pH VBG pCO2 VBG pO2 VBG HCO3 VBG O2 Saturation VBG Base Excess Anion Gap 14 Estim Creat Clear Calc 40.8 Estimated GFR 30 POC Glucose Random Glucose 367 H* Lactic Acid 1.1 Calcium 7.2 L D Phosphorus 5.3 H Ferritin 1740 H Lactate Dehydrogenase 287 H Troponin I High Sens C-Reactive Protein 6.57 H Albumin 3.3 L D Blood Type Antibody Screen Crossmatch 06/11/21 06/11/21 06/11/21 12:43 12:47 12:51 MCV MCH MCHC RDW Plt Count MPV Immature Gran % (Auto) Neut % (Auto) Lymph % (Auto) [place] % (Auto) Eos % (Auto) Baso % (Auto) Lymph # (Auto) [place] # (Auto) Eos # (Auto) Baso # (Auto) Abs Immat Gran (auto) Absolute Neuts (auto) Absolute Nucleated RBC Nucleated RBC % (auto) Neutrophils % (Manual) Band Neutrophils % Monocytes % (Manual) Metamyelocytes % Abs Neuts (Manual) Monocytes # (Manual) Metamyelocytes # Platelet Estimate Plt Morphology Comment RBC Morphology Polychromasia Hypochromasia PT INR D-Dimer High Sensitivty VBG pH 7.25 L 7.26 L VBG pCO2 44 42 VBG pO2 54 56 VBG HCO3 TNP 19 L VBG O2 Saturation 74.0 76.0 VBG Base Excess -6.6 -6.8 Anion Gap Estim Creat Clear Calc Estimated GFR POC Glucose Random Glucose Lactic Acid Calcium Phosphorus Ferritin Lactate Dehydrogenase Troponin I High Sens 323.8 H* D C-Reactive Protein Albumin Blood Type Antibody Screen Crossmatch 06/11/21 06/11/21 06/11/21 15:06 17:01 17:12 MCV MCH MCHC RDW Plt Count MPV Immature Gran % (Auto) Neut % (Auto) Lymph % (Auto) [place] % (Auto) Eos % (Auto) Baso % (Auto) Lymph # (Auto) [place] # (Auto) Eos # (Auto) Baso # (Auto) Abs Immat Gran (auto) Absolute Neuts (auto) Absolute Nucleated RBC Nucleated RBC % (auto) Neutrophils % (Manual) Band Neutrophils % Monocytes % (Manual) Metamyelocytes % Abs Neuts (Manual) Monocytes # (Manual) Metamyelocytes # Platelet Estimate Plt Morphology Comment RBC Morphology Polychromasia Hypochromasia PT 13.1 H INR 1.2 H D-Dimer High Sensitivty VBG pH VBG pCO2 VBG pO2 VBG HCO3 VBG O2 Saturation VBG Base Excess Anion Gap Estim Creat Clear Calc Estimated GFR POC Glucose 337 H 257 H Random Glucose Lactic Acid Calcium Phosphorus Ferritin Lactate Dehydrogenase Troponin I High Sens C-Reactive Protein Albumin Blood Type Antibody Screen Crossmatch 06/11/21 06/11/21 06/11/21 17:12 18:58 20:30 MCV 88.8 MCH 30.2 MCHC 34.0 RDW 16.0 Plt Count 91 L MPV 11.6 Immature Gran % (Auto) Neut % (Auto) Lymph % (Auto) [place] % (Auto) Eos % (Auto) Baso % (Auto) Lymph # (Auto) [place] # (Auto) Eos # (Auto) Baso # (Auto) Abs Immat Gran (auto) Absolute Neuts (auto) Absolute Nucleated RBC 0.020 H Nucleated RBC % (auto) 0.1 Neutrophils % (Manual) Band Neutrophils % Monocytes % (Manual) Metamyelocytes % Abs Neuts (Manual) Monocytes # (Manual) Metamyelocytes # Platelet Estimate Plt Morphology Comment RBC Morphology Polychromasia Hypochromasia PT INR D-Dimer High Sensitivty VBG pH VBG pCO2 VBG pO2 VBG HCO3 VBG O2 Saturation VBG Base Excess Anion Gap Estim Creat Clear Calc Estimated GFR POC Glucose 242 H Random Glucose Lactic Acid Calcium Phosphorus Ferritin Lactate Dehydrogenase Troponin I High Sens 261.5 H* C-Reactive Protein Albumin Blood Type Antibody Screen Crossmatch 06/11/21 06/11/21 06/11/21 20:31 20:34 22:47 MCV MCH MCHC RDW Plt Count MPV Immature Gran % (Auto) Neut % (Auto) Lymph % (Auto) [place] % (Auto) Eos % (Auto) Baso % (Auto) Lymph # (Auto) [place] # (Auto) Eos # (Auto) Baso # (Auto) Abs Immat Gran (auto) Absolute Neuts (auto) Absolute Nucleated RBC Nucleated RBC % (auto) Neutrophils % (Manual) Band Neutrophils % Monocytes % (Manual) Metamyelocytes % Abs Neuts (Manual) Monocytes # (Manual) Metamyelocytes # Platelet Estimate Plt Morphology Comment RBC Morphology Polychromasia Hypochromasia PT INR D-Dimer High Sensitivty VBG pH VBG pCO2 VBG pO2 VBG HCO3 VBG O2 Saturation VBG Base Excess Anion Gap Estim Creat Clear Calc Estimated GFR POC Glucose 56 L* 225 H 209 H Random Glucose Lactic Acid Calcium Phosphorus Ferritin Lactate Dehydrogenase Troponin I High Sens C-Reactive Protein Albumin Blood Type Antibody Screen Crossmatch 06/12/21 06/12/21 06/12/21 00:57 03:04 05:00 MCV MCH MCHC RDW Plt Count MPV Immature Gran % (Auto) Neut % (Auto) Lymph % (Auto) [place] % (Auto) Eos % (Auto) Baso % (Auto) Lymph # (Auto) [place] # (Auto) Eos # (Auto) Baso # (Auto) Abs Immat Gran (auto) Absolute Neuts (auto) Absolute Nucleated RBC Nucleated RBC % (auto) Neutrophils % (Manual) Band Neutrophils % Monocytes % (Manual) Metamyelocytes % Abs Neuts (Manual) Monocytes # (Manual) Metamyelocytes # Platelet Estimate Plt Morphology Comment RBC Morphology Polychromasia Hypochromasia PT INR D-Dimer High Sensitivty VBG pH VBG pCO2 VBG pO2 VBG HCO3 VBG O2 Saturation VBG Base Excess Anion Gap Estim Creat Clear Calc Estimated GFR POC Glucose 170 H 159 H 162 H Random Glucose Lactic Acid Calcium Phosphorus Ferritin Lactate Dehydrogenase Troponin I High Sens C-Reactive Protein Albumin Blood Type Antibody Screen Crossmatch 06/12/21 06/12/21 06/12/21 05:30 05:30 05:45 MCV 88.1 MCH 29.7 MCHC 33.7 RDW 16.4 H Plt Count 90 L MPV 12.0 Immature Gran % (Auto) Cancelled Neut % (Auto) Cancelled Lymph % (Auto) Cancelled [place] % (Auto) Cancelled Eos % (Auto) Cancelled Baso % (Auto) Cancelled Lymph # (Auto) Cancelled [place] # (Auto) Cancelled Eos # (Auto) Cancelled Baso # (Auto) Cancelled Abs Immat Gran (auto) Cancelled Absolute Neuts (auto) Cancelled Absolute Nucleated RBC 0.020 H Nucleated RBC % (auto) 0.1 Neutrophils % (Manual) 89 H Band Neutrophils % 4 Monocytes % (Manual) 4 Metamyelocytes % 3 Abs Neuts (Manual) 22.2 H Monocytes # (Manual) 1.0 Metamyelocytes # 0.7 Platelet Estimate SLIGHTLY DECREASED Plt Morphology Comment NORMAL RBC Morphology NOTED Polychromasia 1+ (0-2) Hypochromasia 1+ (5-14) PT INR D-Dimer High Sensitivty VBG pH 7.33 VBG pCO2 38 VBG pO2 53 VBG HCO3 20 L VBG O2 Saturation 82.0 VBG Base Excess -4.7 Anion Gap 12 Estim Creat Clear Calc 46.2 Estimated GFR 34 POC Glucose Random Glucose 162 H D Lactic Acid Calcium 7.4 L Phosphorus Ferritin Lactate Dehydrogenase Troponin I High Sens C-Reactive Protein Albumin Blood Type Antibody Screen Crossmatch 06/12/21 07:06 MCV MCH MCHC RDW Plt Count MPV Immature Gran % (Auto) Neut % (Auto) Lymph % (Auto) [place] % (Auto) Eos % (Auto) Baso % (Auto) Lymph # (Auto) [place] # (Auto) Eos # (Auto) Baso # (Auto) Abs Immat Gran (auto) Absolute Neuts (auto) Absolute Nucleated RBC Nucleated RBC % (auto) Neutrophils % (Manual) Band Neutrophils % Monocytes % (Manual) Metamyelocytes % Abs Neuts (Manual) Monocytes # (Manual) Metamyelocytes # Platelet Estimate Plt Morphology Comment RBC Morphology Polychromasia Hypochromasia PT INR D-Dimer High Sensitivty VBG pH VBG pCO2 VBG pO2 VBG HCO3 VBG O2 Saturation VBG Base Excess Anion Gap Estim Creat Clear Calc Estimated GFR POC Glucose 139 H Random Glucose Lactic Acid Calcium Phosphorus Ferritin Lactate Dehydrogenase Troponin I High Sens C-Reactive Protein Albumin Blood Type Antibody Screen Crossmatch Microbiology Microbiology Results: Microbiology 06/09/21 17:15 Blood Culture - Preliminary Blood - Venous Staphylococcus aureus 06/09/21 17:10 Blood Culture - Preliminary Blood - Venous Staphylococcus aureus 06/08/21 23:11 Blood Culture - Final Blood - Venous Staphylococcus aureus 06/08/21 23:11 Blood Culture - Final Blood - Venous Staphylococcus aureus Procedures Date of Service Date of Service: 06/12/21 Progress Note: A&P Assessment and plan (1) GI bleed: Status: Acute Assessment and Plan: multiple ulcers seen on EGD one particular ulcer in proximal duodenum with some bleeding, controlled endoscopically Hg stable no anticoagulants no NSAIDs continue PPI Fall Risk Details Current Medications: Current Medications Atorvastatin Calcium (Atorvastatin Calcium 10 Mg Tablet) 10 mg PO BEDTIME [facility] Last Admin: 06/11/21 20:07 Dose: Not Given Documented by: Famotidine (Famotidine/Pf 20 Mg/2 Ml Vial) 20 mg IVPUSH DAILY [facility] Last Admin: 06/12/21 08:41 Dose: 20 mg Documented by: Fentanyl (Fentanyl Citrate/Pf 100 Mcg/2 Ml Vial) 50 mcg IVPUSH Q5M PRN; Protocol PRN Reason: pain or WOB Fentanyl (Fentanyl Citrate/Pf 100 Mcg/2 Ml Vial) 100 mcg IVPUSH Q5M PRN; Protocol PRN Reason: pain or WOB Last Admin: 06/12/21 05:09 Dose: 100 mcg Documented by: Vancomycin HCl 1,000 mg/ (Sodium Chloride) 270 mls @ 270 mls/hr IV Q24H [facility] Last Infusion: 06/11/21 17:17 Dose: Infused Documented by: Fentanyl (Sublimaze/Ns) 1,000 mcg in 100 mls @ 0 mls/hr IVCONT .Q0M [facility]; Protocol Norepinephrine Bitartrate (Levophed) 8 mg in 250 mls @ 0 mls/hr IVCONT .Q0M [facility]; Protocol Last Titration: 06/12/21 05:30 Dose: 0.2 mcg/kg/min, 47.93 mls/hr Documented by: Propofol (Diprivan) 1,000 mg in 100 mls @ 0 mls/hr IVCONT .Q0M [facility]; Protocol Last Admin: 06/12/21 06:08 Dose: 30 mcg/kg/min, 23 mls/hr Documented by: Esmolol HCl (Brevibloc/Nacl) 2,500 mg in 250 mls @ 0 mls/hr IVCONT .Q0M [facility]; Protocol Last Admin: 06/12/21 08:43 Dose: 75 mcg/kg/min, 57.51 mls/hr Documented by: Insulin Human Regular (Myxredlin) 100 unit in 100 mls @ 0 mls/hr IVCONT .Q0M [facility] Last Infusion: 06/12/21 07:30 Dose: 1 unit/hr, 1 mls/hr Documented by: Pantoprazole Sodium 80 mg/ (Sodium Chloride) 100 mls @ 10 mls/hr IV .Q10H [facility] Last Admin: 06/12/21 04:55 Dose: 8 mg/hr, 10 mls/hr Documented by: Pharmacy Consult (Consult Rx Perform Med Rec) 1 each MISCELLANE ONCE PRN PRN Reason: Consult order Pharmacy Consult (Consult Rx Vancomycin Dosing) 1 each MISCELLANE DAILY PRN PRN Reason: Consult order Sodium Chloride (0.9 % Sodium Chloride Flush 3 Ml Syringe) 3 ml IVFLUSH QSHIFT [facility] Last Admin: 06/12/21 08:41 Dose: 3 ml Documented by: Tamsulosin HCl (Tamsulosin Hcl 0.4 Mg Capsule) 0.4 mg PO BEDTIME [facility] Last Admin: 06/11/21 20:07 Dose: Not Given Documented by: Time Spent With Patient Time: Total time spent is greater than 50% in coordination of care (as documented) at patient's floor/unit and/or counseling patient: Time with patient: 15 - 24 minutes Quality Stroke Does the patient have a stroke diagnosis?: No VTE Prior VTE?: No VTE Risk Level:: Medical - moderate - high VTE Device Contraindication: Treatment Not Indicated VTE Drug Contraindication: Treatment Not Indicated
[2021-06-12 09:57] LABS: Glucose, Whole Blood 157 mg/dL (60-115)
[2021-06-12 12:13] LABS: Glucose, Whole Blood 177 mg/dL (60-115)
[2021-06-12] MEDS: propofoL 1,000 MG/100 ML VIAL 38.34 MG IVCONT ×5 (13:50→23:19)
--- NOTE | 2021-06-12 14:00 | PM.GIPN ---
Subjective Subjective Date of Service: 06/12/21 Interval History: intubated in bed, nods answers Critical Care Time (minutes): 0 Physical Exam Vital Signs: Vital Signs: Last Vital Signs Temp 99.0 F 06/12/21 12:00 Pulse 75 06/12/21 12:00 Resp 19 06/12/21 12:00 BP 128/49 L 06/12/21 12:00 Pulse Ox 96 06/12/21 12:00 Oxygen Flow Rate 55 06/11/21 10:25 BMI result Body Mass Index 39.2 Const: General: no acute distress GI: Other: abdomen is soft and nontender Objective Data Labs CBC & Chem 7: 06/12/21 05:30 06/12/21 05:30 Procedures Date of Service Date of Service: 06/12/21 Progress Note: A&P Assessment and plan (1) GI bleed: Status: Acute Assessment and Plan: hematocrit is stable continue ppi infusion ok to start tube feeds if needed Fall Risk Details Current Medications: Current Medications Atorvastatin Calcium (Atorvastatin Calcium 10 Mg Tablet) 10 mg PO BEDTIME [facility] Last Admin: 06/11/21 20:07 Dose: Not Given Documented by: Famotidine (Famotidine/Pf 20 Mg/2 Ml Vial) 20 mg IVPUSH DAILY [facility] Last Admin: 06/12/21 08:41 Dose: 20 mg Documented by: Fentanyl (Fentanyl Citrate/Pf 100 Mcg/2 Ml Vial) 50 mcg IVPUSH Q5M PRN; Protocol PRN Reason: pain or WOB Fentanyl (Fentanyl Citrate/Pf 100 Mcg/2 Ml Vial) 100 mcg IVPUSH Q5M PRN; Protocol PRN Reason: pain or WOB Last Admin: 06/12/21 13:48 Dose: 100 mcg Documented by: Vancomycin HCl 1,000 mg/ (Sodium Chloride) 270 mls @ 270 mls/hr IV Q24H [facility] Last Infusion: 06/11/21 17:17 Dose: Infused Documented by: Fentanyl (Sublimaze/Ns) 1,000 mcg in 100 mls @ 0 mls/hr IVCONT .Q0M [facility]; Protocol Norepinephrine Bitartrate (Levophed) 8 mg in 250 mls @ 0 mls/hr IVCONT .Q0M [facility]; Protocol Last Titration: 06/12/21 13:51 Dose: 0 mcg/kg/min, 0.16 mls/hr Documented by: Propofol (Diprivan) 1,000 mg in 100 mls @ 0 mls/hr IVCONT .Q0M [facility]; Protocol Last Admin: 06/12/21 13:50 Dose: 50 mcg/kg/min, 38.34 mls/hr Documented by: Esmolol HCl (Brevibloc/Nacl) 2,500 mg in 250 mls @ 0 mls/hr IVCONT .Q0M [facility]; Protocol Last Titration: 06/12/21 12:25 Dose: 0 mcg/kg/min, 0 mls/hr Documented by: Insulin Human Regular (Myxredlin) 100 unit in 100 mls @ 0 mls/hr IVCONT .Q0M [facility] Last Infusion: 06/12/21 07:30 Dose: 1 unit/hr, 1 mls/hr Documented by: Pantoprazole Sodium 80 mg/ (Sodium Chloride) 100 mls @ 10 mls/hr IV .Q10H [facility] Last Admin: 06/12/21 04:55 Dose: 8 mg/hr, 10 mls/hr Documented by: Pharmacy Consult (Consult Rx Perform Med Rec) 1 each MISCELLANE ONCE PRN PRN Reason: Consult order Pharmacy Consult (Consult Rx Vancomycin Dosing) 1 each MISCELLANE DAILY PRN PRN Reason: Consult order Sodium Chloride (0.9 % Sodium Chloride Flush 3 Ml Syringe) 3 ml IVFLUSH QSHIFT [facility] Last Admin: 06/12/21 08:41 Dose: 3 ml Documented by: Tamsulosin HCl (Tamsulosin Hcl 0.4 Mg Capsule) 0.4 mg PO BEDTIME [facility] Last Admin: 06/11/21 20:07 Dose: Not Given Documented by: Time Spent With Patient Time: Total time spent is greater than 50% in coordination of care (as documented) at patient's floor/unit and/or counseling patient: Time with patient: less than 15 minutes Quality Stroke Does the patient have a stroke diagnosis?: No VTE Prior VTE?: No VTE Risk Level:: Medical - moderate - high VTE Device Contraindication: Treatment Not Indicated VTE Drug Contraindication: Treatment Not Indicated
[2021-06-12 14:20] LABS: Glucose, Whole Blood 186 mg/dL (60-115)
[2021-06-12 15:12] LABS: Hematocrit 33.8 % (42.0-52.0); Mean Corpuscular HGB Conc 32.5 g/dl (31.0-36.0); Mean Corpuscular Hemoglobin 29.6 pg (27.0-33.0); Mean Corpuscular Volume 90.9 fL (80.0-98.0); Mean Platelet Volume 11.5 fL (9.4-12.4); NRBC Pct Auto 0.1 /100WBC (0.0-0.2); Red Blood Count 3.72 X10*6/uL (4.60-5.80); Red Cell Distribution Width 16.7 % (11.0-16.0)
[2021-06-12 15:14] LABS: Platelet Count 77 X10*3/uL (160-400); White Blood Count 37.8 X10*3/uL (4.8-10.8)
[2021-06-12 15:31] LABS: Vancomycin Trough 14.8 mcg/mL (10.0-20.0)
[2021-06-12 16:16] LABS: Band Neutrophils Percent 7 % (3-5); Blast Percent 1 %; Blastocytes Absolute 0.4 X10*3/uL; Lymphocytes Absolute Manual 1.9 X10*3/uL (1.2-4.9); Lymphocytes Percent Manual 5 % (20-40); Metamyelocytes Absolute 0.8 X10*3/uL; Metamyelocytes Percent 2 %; Monocytes Absolute Manual 1.9 X10*3/uL (0.1-1.2); Monocytes Percent Manual 5 % (2-11); Myelocytes Absolute 0.8 X10*/uL; Myelocytes Percent 2 %; Neutrophils Absolute Manual 31.8 X10*3/uL (2.0-8.3); Neutrophils Percent Manual 77 % (45-73); Promyelocytes Absolute 0.4 X10*3/uL; Promyelocytes Percent 1 %
[2021-06-12 16:18] LABS: Glucose, Whole Blood 189 mg/dL (60-115)
[2021-06-12 16:19] LABS: RBC Morphology NOTED
[2021-06-12 16:20] LABS: Burr Cells 2+ (3-5) /OIF; Platelet Estimate DECREASED (NORMAL); Platelet Morphology Comment NORMAL
[2021-06-12] MEDS: vancomycin HCL 1,000 MG in 0.9 % Sodium Chloride 250 ML 270 MG IV (16:30)
--- NOTE | 2021-06-12 17:02 | P.PNCC_ITS ---
Subjective Subjective Date of Service: 06/12/21 Interval History: 76-year-old male who is COVID-19 positive and was developing a a cough but apparently also veno progressively weaker and in the hospital developed a fairly large volume upper GI bleed due to duodenal ulceration with erosion into a visible vessel that was treated with cautery and currently stable but the patient remains intubated for now and still is Levophed dependent and part of the presentation was a consistent Staph aureus bacteremia which appears to be an oxacillin sensitive organism but remains on vancomycin as it is primary treatment he developed a paroxysm of rapid atrial fibrillation which has since converted back to sinus rhythm so he was able to come off the esmolol drip that he was on for rate control and simply on the Levophed and ventilator and remains of course sedated entry point for the Staph bacteremia still remains a mystery Critical Care Time (minutes): 60 Physical Exam Vital Signs: Vital Signs: Last Vital Signs Temp 98.8 F 06/12/21 15:00 Pulse 66 06/12/21 16:00 Resp 17 06/12/21 16:00 BP 135/46 L 06/12/21 16:00 Pulse Ox 97 06/12/21 16:00 Oxygen Flow Rate 55 06/11/21 10:25 BMI result Body Mass Index 39.2 sedated and intubated with equal neurological tone bilaterally preserved left ventricular systolic function and mild but noncritical aortic valve stenosis by echo coarse bilateral ventilatory sounds but no other adventitious sounds abdomen is soft no organomegaly tolerating feedings no evidence of peripheral cellulitis no acrocyanosis no livedo Objective Data Labs CBC & Chem 7: 06/12/21 15:01 06/12/21 05:30 Labs: Laboratory Results - last 24 hr 06/10/21 06/11/21 06/11/21 13:26 17:01 17:12 WBC RBC Hgb 8.9 L Hct 26.8 L MCV MCH MCHC RDW Plt Count MPV Immature Gran % (Auto) Neut % (Auto) Lymph % (Auto) [place] % (Auto) Eos % (Auto) Baso % (Auto) Lymph # (Auto) [place] # (Auto) Eos # (Auto) Baso # (Auto) Abs Immat Gran (auto) Absolute Neuts (auto) Absolute Nucleated RBC Nucleated RBC % (auto) Neutrophils % (Manual) Band Neutrophils % Lymphocytes % (Manual) Monocytes % (Manual) Metamyelocytes % Myelocytes % Promyelocytes % Blast Cells % (Manual) Abs Neuts (Manual) Lymphocytes # (Manual) Monocytes # (Manual) Metamyelocytes # Myelocytes # Promyelocytes # Blast Cells # Platelet Estimate Plt Morphology Comment RBC Morphology Polychromasia Hypochromasia [place] Cells PT INR VBG pH VBG pCO2 VBG pO2 VBG HCO3 VBG O2 Saturation VBG Base Excess Sodium Potassium Chloride Carbon Dioxide Anion Gap BUN Creatinine Estim Creat Clear Calc Estimated GFR POC Glucose 257 H Random Glucose Calcium Troponin I High Sens Vancomycin Trough Blood Type O Positive Antibody Screen NEGATIVE Crossmatch See Detail 06/11/21 06/11/21 06/11/21 17:12 17:12 18:58 WBC RBC Hgb Hct MCV MCH MCHC RDW Plt Count MPV Immature Gran % (Auto) Neut % (Auto) Lymph % (Auto) [place] % (Auto) Eos % (Auto) Baso % (Auto) Lymph # (Auto) [place] # (Auto) Eos # (Auto) Baso # (Auto) Abs Immat Gran (auto) Absolute Neuts (auto) Absolute Nucleated RBC Nucleated RBC % (auto) Neutrophils % (Manual) Band Neutrophils % Lymphocytes % (Manual) Monocytes % (Manual) Metamyelocytes % Myelocytes % Promyelocytes % Blast Cells % (Manual) Abs Neuts (Manual) Lymphocytes # (Manual) Monocytes # (Manual) Metamyelocytes # Myelocytes # Promyelocytes # Blast Cells # Platelet Estimate Plt Morphology Comment RBC Morphology Polychromasia Hypochromasia [place] Cells PT 13.1 H INR 1.2 H VBG pH VBG pCO2 VBG pO2 VBG HCO3 VBG O2 Saturation VBG Base Excess Sodium Potassium Chloride Carbon Dioxide Anion Gap BUN Creatinine Estim Creat Clear Calc Estimated GFR POC Glucose 242 H Random Glucose Calcium Troponin I High Sens 261.5 H* Vancomycin Trough Blood Type Antibody Screen Crossmatch 06/11/21 06/11/21 06/11/21 20:30 20:31 20:34 WBC 27.1 H RBC 3.38 L D Hgb 10.2 L Hct 30.0 L MCV 88.8 MCH 30.2 MCHC 34.0 RDW 16.0 Plt Count 91 L MPV 11.6 Immature Gran % (Auto) Neut % (Auto) Lymph % (Auto) [place] % (Auto) Eos % (Auto) Baso % (Auto) Lymph # (Auto) [place] # (Auto) Eos # (Auto) Baso # (Auto) Abs Immat Gran (auto) Absolute Neuts (auto) Absolute Nucleated RBC 0.020 H Nucleated RBC % (auto) 0.1 Neutrophils % (Manual) Band Neutrophils % Lymphocytes % (Manual) Monocytes % (Manual) Metamyelocytes % Myelocytes % Promyelocytes % Blast Cells % (Manual) Abs Neuts (Manual) Lymphocytes # (Manual) Monocytes # (Manual) Metamyelocytes # Myelocytes # Promyelocytes # Blast Cells # Platelet Estimate Plt Morphology Comment RBC Morphology Polychromasia Hypochromasia [place] Cells PT INR VBG pH VBG pCO2 VBG pO2 VBG HCO3 VBG O2 Saturation VBG Base Excess Sodium Potassium Chloride Carbon Dioxide Anion Gap BUN Creatinine Estim Creat Clear Calc Estimated GFR POC Glucose 56 L* 225 H Random Glucose Calcium Troponin I High Sens Vancomycin Trough Blood Type Antibody Screen Crossmatch 06/11/21 06/12/21 06/12/21 22:47 00:57 03:04 WBC RBC Hgb Hct MCV MCH MCHC RDW Plt Count MPV Immature Gran % (Auto) Neut % (Auto) Lymph % (Auto) [place] % (Auto) Eos % (Auto) Baso % (Auto) Lymph # (Auto) [place] # (Auto) Eos # (Auto) Baso # (Auto) Abs Immat Gran (auto) Absolute Neuts (auto) Absolute Nucleated RBC Nucleated RBC % (auto) Neutrophils % (Manual) Band Neutrophils % Lymphocytes % (Manual) Monocytes % (Manual) Metamyelocytes % Myelocytes % Promyelocytes % Blast Cells % (Manual) Abs Neuts (Manual) Lymphocytes # (Manual) Monocytes # (Manual) Metamyelocytes # Myelocytes # Promyelocytes # Blast Cells # Platelet Estimate Plt Morphology Comment RBC Morphology Polychromasia Hypochromasia [place] Cells PT INR VBG pH VBG pCO2 VBG pO2 VBG HCO3 VBG O2 Saturation VBG Base Excess Sodium Potassium Chloride Carbon Dioxide Anion Gap BUN Creatinine Estim Creat Clear Calc Estimated GFR POC Glucose 209 H 170 H 159 H Random Glucose Calcium Troponin I High Sens Vancomycin Trough Blood Type Antibody Screen Crossmatch 06/12/21 06/12/21 06/12/21 05:00 05:30 05:30 WBC 23.9 H RBC 3.44 L Hgb 10.2 L Hct 30.3 L MCV 88.1 MCH 29.7 MCHC 33.7 RDW 16.4 H Plt Count 90 L MPV 12.0 Immature Gran % (Auto) Cancelled Neut % (Auto) Cancelled Lymph % (Auto) Cancelled [place] % (Auto) Cancelled Eos % (Auto) Cancelled Baso % (Auto) Cancelled Lymph # (Auto) Cancelled [place] # (Auto) Cancelled Eos # (Auto) Cancelled Baso # (Auto) Cancelled Abs Immat Gran (auto) Cancelled Absolute Neuts (auto) Cancelled Absolute Nucleated RBC 0.020 H Nucleated RBC % (auto) 0.1 Neutrophils % (Manual) 89 H Band Neutrophils % 4 Lymphocytes % (Manual) Monocytes % (Manual) 4 Metamyelocytes % 3 Myelocytes % Promyelocytes % Blast Cells % (Manual) Abs Neuts (Manual) 22.2 H Lymphocytes # (Manual) Monocytes # (Manual) 1.0 Metamyelocytes # 0.7 Myelocytes # Promyelocytes # Blast Cells # Platelet Estimate SLIGHTLY DECREASED Plt Morphology Comment NORMAL RBC Morphology NOTED Polychromasia 1+ (0-2) Hypochromasia 1+ (5-14) [place] Cells PT INR VBG pH VBG pCO2 VBG pO2 VBG HCO3 VBG O2 Saturation VBG Base Excess Sodium 140 Potassium 4.0 Chloride 110 H Carbon Dioxide 22 Anion Gap 12 BUN 117 H Creatinine 1.93 H Estim Creat Clear Calc 46.2 Estimated GFR 34 POC Glucose 162 H Random Glucose 162 H D Calcium 7.4 L Troponin I High Sens Vancomycin Trough Blood Type Antibody Screen Crossmatch 06/12/21 06/12/21 06/12/21 05:45 07:06 09:53 WBC RBC Hgb Hct MCV MCH MCHC RDW Plt Count MPV Immature Gran % (Auto) Neut % (Auto) Lymph % (Auto) [place] % (Auto) Eos % (Auto) Baso % (Auto) Lymph # (Auto) [place] # (Auto) Eos # (Auto) Baso # (Auto) Abs Immat Gran (auto) Absolute Neuts (auto) Absolute Nucleated RBC Nucleated RBC % (auto) Neutrophils % (Manual) Band Neutrophils % Lymphocytes % (Manual) Monocytes % (Manual) Metamyelocytes % Myelocytes % Promyelocytes % Blast Cells % (Manual) Abs Neuts (Manual) Lymphocytes # (Manual) Monocytes # (Manual) Metamyelocytes # Myelocytes # Promyelocytes # Blast Cells # Platelet Estimate Plt Morphology Comment RBC Morphology Polychromasia Hypochromasia [place] Cells PT INR VBG pH 7.33 VBG pCO2 38 VBG pO2 53 VBG HCO3 20 L VBG O2 Saturation 82.0 VBG Base Excess -4.7 Sodium Potassium Chloride Carbon Dioxide Anion Gap BUN Creatinine Estim Creat Clear Calc Estimated GFR POC Glucose 139 H 157 H Random Glucose Calcium Troponin I High Sens Vancomycin Trough Blood Type Antibody Screen Crossmatch 06/12/21 06/12/21 06/12/21 12:08 14:14 15:01 WBC RBC Hgb Hct MCV MCH MCHC RDW Plt Count MPV Immature Gran % (Auto) Neut % (Auto) Lymph % (Auto) [place] % (Auto) Eos % (Auto) Baso % (Auto) Lymph # (Auto) [place] # (Auto) Eos # (Auto) Baso # (Auto) Abs Immat Gran (auto) Absolute Neuts (auto) Absolute Nucleated RBC Nucleated RBC % (auto) Neutrophils % (Manual) Band Neutrophils % Lymphocytes % (Manual) Monocytes % (Manual) Metamyelocytes % Myelocytes % Promyelocytes % Blast Cells % (Manual) Abs Neuts (Manual) Lymphocytes # (Manual) Monocytes # (Manual) Metamyelocytes # Myelocytes # Promyelocytes # Blast Cells # Platelet Estimate Plt Morphology Comment RBC Morphology Polychromasia Hypochromasia [place] Cells PT INR VBG pH VBG pCO2 VBG pO2 VBG HCO3 VBG O2 Saturation VBG Base Excess Sodium Potassium Chloride Carbon Dioxide Anion Gap BUN Creatinine Estim Creat Clear Calc Estimated GFR POC Glucose 177 H 186 H Random Glucose Calcium Troponin I High Sens Vancomycin Trough 14.8 Blood Type Antibody Screen Crossmatch 06/12/21 06/12/21 15:01 16:14 WBC 37.8 H* RBC 3.72 L Hgb 11.0 L Hct 33.8 L MCV 90.9 MCH 29.6 MCHC 32.5 RDW 16.7 H Plt Count 77 L MPV 11.5 Immature Gran % (Auto) Cancelled Neut % (Auto) Cancelled Lymph % (Auto) Cancelled [place] % (Auto) Cancelled Eos % (Auto) Cancelled Baso % (Auto) Cancelled Lymph # (Auto) Cancelled [place] # (Auto) Cancelled Eos # (Auto) Cancelled Baso # (Auto) Cancelled Abs Immat Gran (auto) Cancelled Absolute Neuts (auto) Cancelled Absolute Nucleated RBC 0.040 H Nucleated RBC % (auto) 0.1 Neutrophils % (Manual) 77 H Band Neutrophils % 7 H Lymphocytes % (Manual) 5 L Monocytes % (Manual) 5 Metamyelocytes % 2 Myelocytes % 2 Promyelocytes % 1 Blast Cells % (Manual) 1 Abs Neuts (Manual) 31.8 H Lymphocytes # (Manual) 1.9 Monocytes # (Manual) 1.9 H Metamyelocytes # 0.8 Myelocytes # 0.8 Promyelocytes # 0.4 Blast Cells # 0.4 Platelet Estimate DECREASED Plt Morphology Comment NORMAL RBC Morphology NOTED Polychromasia Hypochromasia [place] Cells 2+ (3-5) PT INR VBG pH VBG pCO2 VBG pO2 VBG HCO3 VBG O2 Saturation VBG Base Excess Sodium Potassium Chloride Carbon Dioxide Anion Gap BUN Creatinine Estim Creat Clear Calc Estimated GFR POC Glucose 189 H Random Glucose Calcium Troponin I High Sens Vancomycin Trough Blood Type Antibody Screen Crossmatch Microbiology Microbiology Results: Microbiology 06/09/21 17:15 Blood - Venous Blood Culture - Final Staphylococcus aureus 06/09/21 17:10 Blood - Venous Blood Culture - Final Staphylococcus aureus 06/08/21 23:11 Blood - Venous Blood Culture - Final Staphylococcus aureus 06/08/21 23:11 Blood - Venous Blood Culture - Final Staphylococcus aureus Progress Note: A&P Assessment and plan (1) GI bleed: Status: Acute (2) Hypotension: Status: Acute (3) Bacteremia due to Gram-positive bacteria: Status: Acute (4) Atrial fibrillation with rapid ventricular response: Status: Acute (5) Acute renal failure: Status: Acute (6) COVID-19: Status: Acute (7) Weakness: Status: Acute (8) BPH w urinary obs/LUTS: Status: Acute (9) Elevated prostate specific antigen [PSA]: Status: Acute Assessment and Plan: will assess central venous pressure monitoring to help us in in the effort to wean the Levophed continue vancomycin watch the slow resolution of his renal insufficiency and continue to monitor q.6 hourly hemoglobin Quality Stroke Does the patient have a stroke diagnosis?: No VTE Prior VTE?: No VTE Risk Level:: Medical - moderate - high VTE Device Contraindication: Treatment Not Indicated VTE Drug Contraindication: Treatment Not Indicated
[2021-06-12 18:21] LABS: Glucose, Whole Blood 199 mg/dL (60-115)
--- NOTE | 2021-06-12 18:44 | PC.NURSE ---
Afebrile, VSS on levophed gtt. Seadted on propfolol, pt follows commands, opens eyes to voice. LS clear, Vent settings remain the same. U/O wnl, bath given, repo q2hr, family updated.
[2021-06-12 20:17] LABS: Glucose, Whole Blood 206 mg/dL (60-115)
[2021-06-12 22:11] LABS: Glucose, Whole Blood 201 mg/dL (60-115)
[2021-06-12] MEDS: Chlorhexidine Gluc Oral Rinse 15 ML MOUTHWASH BUCCAL (23:19)
[2021-06-12 23:28] LABS: Hematocrit 27.8 % (42.0-52.0); Hemoglobin 9.4 g/dl (14.0-18.0)
[2021-06-12 23:48] LABS: Glucose, Whole Blood 199 mg/dL (60-115)
[2021-06-13] VITALS (31 sets, daily range): BP systolic 93–140; BP diastolic 36–92; PULSE 68–112; RESP 14–31; TEMP 35–37.3; O2SAT 90–100; BMI 39.7
[2021-06-13] MEDS: propofoL 1,000 MG/100 ML VIAL 38.34 MG IVCONT ×5 (01:06→21:59)
[2021-06-13] MEDS: Pantoprazole Sodium 80 MG in 0.9 % Sodium Chloride 80 ML 10 MG IV ×3 (01:06→21:59)
[2021-06-13 02:05] LABS: Glucose, Whole Blood 192 mg/dL (60-115)
[2021-06-13 04:16] LABS: Glucose, Whole Blood 175 mg/dL (60-115)
[2021-06-13 05:41] LABS: VBG HCO3 20 mmol/L (22-26); VBG pCO2 27 mmHg; VBG pH 7.47 (7.32-7.43); VBG pO2 47 mmHg
[2021-06-13 05:44] LABS: Venous Blood Gas Refer to POC result
[2021-06-13 05:46] LABS: Glucose, Whole Blood 166 mg/dL (60-115)
[2021-06-13 05:55] LABS: Hematocrit 27.6 % (42.0-52.0); Hemoglobin 9.3 g/dl (14.0-18.0); Mean Corpuscular HGB Conc 33.7 g/dl (31.0-36.0); NRBC Pct Auto 0.1 /100WBC (0.0-0.2); Red Cell Distribution Width 16.7 % (11.0-16.0)
[2021-06-13 06:00] LABS: Platelet Count 86 X10*3/uL (160-400)
[2021-06-13] MEDS: propofoL 1,000 MG/100 ML VIAL 30.67 MG IVCONT ×3 (06:05→14:14)
[2021-06-13 06:21] LABS: Band Neutrophils Percent 5 % (3-5); Lymphocytes Absolute Manual 0.9 X10*3/uL (1.2-4.9); Lymphocytes Percent Manual 3 % (20-40); Metamyelocytes Absolute 0.3 X10*3/uL; Metamyelocytes Percent 1 %; Neutrophils Absolute Manual 29.8 X10*3/uL (2.0-8.3); Neutrophils Percent Manual 91 % (45-73)
[2021-06-13 06:23] LABS: Hypochromasia 1+ (5-14) /OIF; Platelet Estimate DECREASED (NORMAL); Platelet Morphology Comment NORMAL; RBC Morphology NOTED
[2021-06-13 07:57] LABS: Glucose, Whole Blood 183 mg/dL (60-115)
[2021-06-13] MEDS: Chlorhexidine Gluc Oral Rinse 15 ML MOUTHWASH BUCCAL ×3 (08:05→19:43)
[2021-06-13] MEDS: 0.9 % Sodium Chloride Flush 3 ML SYRINGE IVFLUSH ×2 (08:05→17:13)
[2021-06-13] MEDS: Famotidine/PF 20 MG/2 ML VIAL IVPUSH (08:05)
[2021-06-13 09:48] LABS: Alanine Aminotransferase 31 U/L (0-40); Albumin Level 2.7 g/dL (3.5-5.0); Alkaline Phosphatase 60 U/L (39-117); Anion Gap 13 (12-20); Aspartate Amino Transferase 29 U/L (5-37); Bilirubin Total 0.7 mg/dL (0.0-1.0); Blood Urea Nitrogen 97 mg/dL (9-16); Calcium 7.4 mg/dL (8.4-10.2); Carbon Dioxide 19 mmol/L (22-29); Chloride 115 mmol/L (96-108); Creatinine Clr Calc Pharmacy 52.9; Estimated Glomerular Filt Rate 39; Glucose Random 191 mg/dL (60-115); Potassium 4.2 mmol/L (3.3-5.1); Sodium 143 mmol/L (135-145); Total Protein 4.5 g/dL (6.5-8.0)
[2021-06-13 10:12] LABS: Glucose, Whole Blood 193 mg/dL (60-115)
--- NOTE | 2021-06-13 10:31 | MHC.CLN ---
F/U PT IS DAY 4 NPO PT REMAINS INTUBATED AND SEDATED; POSSIBLE EXTUBATION TODAY PER NSG PT WITHOUT OGT CURRENTLY IF TF NEEDED; RECOMMEND PROMOTE AT MAX GOAL RATE 55ML/HR TO PROVIDE 1320KCLAS (2130KCALS WITH SEDATION; 26KCALS/KG), 82.5G PROTEIN (1.0G/KG), 1107ML WATER FROM FORMULA START FORMULA AT 20ML/HR AND INCREASE BY 10ML Q 4 HRS UNTIL MAX GOAL IS ACHIEVED MONITOR TOLERANCE, RESIDUALS AND LYTES
--- NOTE | 2021-06-13 10:49 | HO.POSTANES ---
Post Anesthesia Evaluation Post Anesthesia Evaluation Vital Signs: Vital Signs Temp Pulse Resp BP Pulse Ox 06/13/21 10:00 98.2 F 80 20 117/47 L 96 06/13/21 09:09 97 06/13/21 09:00 98.6 F 88 24 H 125/36 L 97 06/13/21 08:00 98.6 F 83 21 H 126/43 L 97 06/13/21 07:00 98.4 F 80 19 128/46 L 97 06/13/21 06:00 98.1 F 82 20 132/44 L 97 06/13/21 05:00 76 20 124/40 L 98 06/13/21 04:00 97.7 F 73 15 114/39 L 99 06/13/21 03:00 97.3 F 80 20 131/49 L 96 06/13/21 02:00 97.3 F 80 20 122/43 L 97 06/13/21 01:00 97.3 F 73 16 124/56 L 97 06/12/21 23:40 97.3 F 69 16 109/41 L 96 06/12/21 23:00 97.3 F 66 17 121/45 L 97 Anesthesia: General Mental Status: Awake Pain Control: Satisfactory Nausea/Vomiting: None Hydration: Adequate Anesthesia-Related Issues: No Anes. Related Issues
--- NOTE | 2021-06-13 12:15 | PM.GIPN ---
Subjective Subjective Date of Service: 06/13/21 Interval History: remains intubated Critical Care Time (minutes): 0 Physical Exam Vital Signs: Vital Signs: Last Vital Signs Temp 98.4 F 06/13/21 11:00 Pulse 74 06/13/21 11:00 Resp 19 06/13/21 11:00 BP 122/42 L 06/13/21 11:00 Pulse Ox 99 06/13/21 11:00 Oxygen Flow Rate 55 06/11/21 10:25 BMI result Body Mass Index 39.7 GI: Other: abdomen is soft, no masses Objective Data Labs CBC & Chem 7: 06/13/21 05:36 06/13/21 05:36 Microbiology Microbiology Results: Microbiology 06/09/21 17:15 Blood - Venous Blood Culture - Final Staphylococcus aureus 06/09/21 17:10 Blood - Venous Blood Culture - Final Staphylococcus aureus 06/08/21 23:11 Blood - Venous Blood Culture - Final Staphylococcus aureus 06/08/21 23:11 Blood - Venous Blood Culture - Final Staphylococcus aureus Procedures Date of Service Date of Service: 06/13/21 Progress Note: A&P Assessment and plan (1) GI bleed: Status: Acute Assessment and Plan: hematocrit is down from yesterday, however he was 2.5L I>O so some of this could be dilutional. vital signs are quite stable, so I do not think there is significant ongoing GI bleeding, and repeat endoscopy would probably not add much at this time. pantoprazole infusion can be continued along with monitoring the hematocrit. Agree with weaning as tolerated. Fall Risk Details Current Medications: Current Medications Chlorhexidine Gluconate (Chlorhexidine Gluc Oral Rinse 15 Ml Mouthwash) 15 ml BUCCAL TID [facility] Last Admin: 06/13/21 08:05 Dose: 15 ml Documented by: Famotidine (Famotidine/Pf 20 Mg/2 Ml Vial) 20 mg IVPUSH DAILY [facility] Last Admin: 06/13/21 08:05 Dose: 20 mg Documented by: Vancomycin HCl 1,000 mg/ (Sodium Chloride) 270 mls @ 270 mls/hr IV Q24H [facility] Last Infusion: 06/12/21 17:30 Dose: Infused Documented by: Fentanyl (Sublimaze/Ns) 1,000 mcg in 100 mls @ 0 mls/hr IVCONT .Q0M [facility]; Protocol Norepinephrine Bitartrate (Levophed) 8 mg in 250 mls @ 0 mls/hr IVCONT .Q0M [facility]; Protocol Last Titration: 06/13/21 04:40 Dose: 0.07 mcg/kg/min, 16.77 mls/hr Documented by: Propofol (Diprivan) 1,000 mg in 100 mls @ 0 mls/hr IVCONT .Q0M [facility]; Protocol Last Admin: 06/13/21 09:20 Dose: 40 mcg/kg/min, 30.67 mls/hr Documented by: Insulin Human Regular (Myxredlin) 100 unit in 100 mls @ 0 mls/hr IVCONT .Q0M [facility] Last Infusion: 06/13/21 06:05 Dose: 1 unit/hr, 1 mls/hr Documented by: Pantoprazole Sodium 80 mg/ (Sodium Chloride) 100 mls @ 10 mls/hr IV .Q10H [facility] Last Admin: 06/13/21 01:06 Dose: 8 mg/hr, 10 mls/hr Documented by: Pharmacy Consult (Consult Rx Perform Med Rec) 1 each MISCELLANE ONCE PRN PRN Reason: Consult order Pharmacy Consult (Consult Rx Vancomycin Dosing) 1 each MISCELLANE DAILY PRN PRN Reason: Consult order Sodium Chloride (0.9 % Sodium Chloride Flush 3 Ml Syringe) 3 ml IVFLUSH QSHIFT [facility] Last Admin: 06/13/21 08:05 Dose: 3 ml Documented by: Time Spent With Patient Time: Total time spent is greater than 50% in coordination of care (as documented) at patient's floor/unit and/or counseling patient: Time with patient: less than 15 minutes Quality Stroke Does the patient have a stroke diagnosis?: No VTE Prior VTE?: No VTE Risk Level:: Medical - moderate - high VTE Device Contraindication: Treatment Not Indicated VTE Drug Contraindication: Treatment Not Indicated
[2021-06-13] MEDS: Doxycycline Hyclate 100 MG in 0.9 % Sodium Chloride 250 ML 166.67 MG IV (12:52)
[2021-06-13] MEDS: levoFLOXacin/D5W 500 MG/100 ML PIGGYBACK 100 MG IV (12:52)
[2021-06-13] MEDS: Insulin Regular/NS 100 UNIT/100 ML PLAST..BAG IVCONT (12:53)
[2021-06-13 13:15] LABS: Glucose, Whole Blood 196 mg/dL (60-115)
[2021-06-13] MEDS: LORazepam 2 MG/ML VIAL 0.5 MG IVPUSH (13:35)
--- NOTE | 2021-06-13 14:13 | MHC.CM.PN ---
Pt continues on ventilatory support in ICU secondary to COVID now with AFib and GIB. No plans to extubate today - FiO2 down to 30%. Original d/c plan was for a return to home with family support. Will await PT/OT assessment of functional abilities for finalization of d/c plans. Most likely, pt will need post acute care.
[2021-06-13 14:15] LABS: Glucose, Whole Blood 221 mg/dL (60-115)
[2021-06-13 15:26] LABS: Vancomycin Random 13.8 mcg/mL (15-20)
[2021-06-13 16:36] LABS: Glucose, Whole Blood 214 mg/dL (60-115)
--- NOTE | 2021-06-13 16:59 | P.PNCC_ITS ---
Subjective Subjective Date of Service: 06/13/21 Interval History: 76-year-old male with COVID-19 positivity who does have bilateral lung infiltrates but also has oxacillin sensitive Staph aureus bacteremia on antibiotic therapy for that and while in the hospital developed profound upper GI bleed requiring a multi unit transfusion currently for 24 hour stable hemoglobin of approximately 9 with stable hemodynamics still requiring minimal dose of Levophed support and has since converted from a paroxysm of rapid atrial fibrillation to current normal sinus rhythm and had a sedation holiday with appropriate cognitive function but on pressure support developed significant increase in respiratory rate with air trapping and and diminishing tidal volumes so we did have to recent date the patient but at least he had appropriate cognitive function so unfortunately we were unable to wean from the ventilator he will continue with a continuous IV Protonix drip and I will start tube feedings by think which would add mucosal protection and hydration because he does have a slowly reversing acute on chronic stage III renal failure Critical Care Time (minutes): 45 Physical Exam Vital Signs: Vital Signs: Last Vital Signs Temp 99.1 F 06/13/21 15:00 Pulse 89 06/13/21 16:00 Resp 20 06/13/21 16:00 BP 129/48 L 06/13/21 16:00 Pulse Ox 100 06/13/21 16:00 Oxygen Flow Rate 55 06/11/21 10:25 BMI result Body Mass Index 39.7 off sedation had good cognitive function and no focal neurologic abnormality bedside echo defined preserved left ventricular reserve coarse bilateral ventilatory lung sounds benign abdomen soft with no organomegaly nontender skin intact with no acrocyanosis Objective Data Labs CBC & Chem 7: 06/13/21 05:36 06/13/21 05:36 Labs: Laboratory Results - last 24 hr 06/11/21 06/12/21 06/12/21 12:43 18:15 20:02 WBC RBC Hgb Hct MCV MCH MCHC RDW Plt Count MPV Immature Gran % (Auto) Neut % (Auto) Lymph % (Auto) [place] % (Auto) Eos % (Auto) Baso % (Auto) Lymph # (Auto) [place] # (Auto) Eos # (Auto) Baso # (Auto) Abs Immat Gran (auto) Absolute Neuts (auto) Absolute Nucleated RBC Nucleated RBC % (auto) Neutrophils % (Manual) Band Neutrophils % Lymphocytes % (Manual) Metamyelocytes % Abs Neuts (Manual) Lymphocytes # (Manual) Metamyelocytes # Platelet Estimate Plt Morphology Comment RBC Morphology Hypochromasia Smear Path Review VBG pH VBG pCO2 VBG pO2 VBG HCO3 VBG O2 Saturation VBG Base Excess Sodium Potassium Chloride Carbon Dioxide Anion Gap BUN Creatinine Estim Creat Clear Calc Estimated GFR POC Glucose 199 H 206 H Random Glucose Calcium Total Bilirubin AST ALT Alkaline Phosphatase Total Protein Albumin Random Vancomycin 06/12/21 06/12/21 06/12/21 22:06 23:20 23:32 WBC RBC Hgb 9.4 L Hct 27.8 L MCV MCH MCHC RDW Plt Count MPV Immature Gran % (Auto) Neut % (Auto) Lymph % (Auto) [place] % (Auto) Eos % (Auto) Baso % (Auto) Lymph # (Auto) [place] # (Auto) Eos # (Auto) Baso # (Auto) Abs Immat Gran (auto) Absolute Neuts (auto) Absolute Nucleated RBC Nucleated RBC % (auto) Neutrophils % (Manual) Band Neutrophils % Lymphocytes % (Manual) Metamyelocytes % Abs Neuts (Manual) Lymphocytes # (Manual) Metamyelocytes # Platelet Estimate Plt Morphology Comment RBC Morphology Hypochromasia Smear Path Review VBG pH VBG pCO2 VBG pO2 VBG HCO3 VBG O2 Saturation VBG Base Excess Sodium Potassium Chloride Carbon Dioxide Anion Gap BUN Creatinine Estim Creat Clear Calc Estimated GFR POC Glucose 201 H 199 H Random Glucose Calcium Total Bilirubin AST ALT Alkaline Phosphatase Total Protein Albumin Random Vancomycin 06/13/21 06/13/21 06/13/21 02:01 03:56 05:35 WBC RBC Hgb Hct MCV MCH MCHC RDW Plt Count MPV Immature Gran % (Auto) Neut % (Auto) Lymph % (Auto) [place] % (Auto) Eos % (Auto) Baso % (Auto) Lymph # (Auto) [place] # (Auto) Eos # (Auto) Baso # (Auto) Abs Immat Gran (auto) Absolute Neuts (auto) Absolute Nucleated RBC Nucleated RBC % (auto) Neutrophils % (Manual) Band Neutrophils % Lymphocytes % (Manual) Metamyelocytes % Abs Neuts (Manual) Lymphocytes # (Manual) Metamyelocytes # Platelet Estimate Plt Morphology Comment RBC Morphology Hypochromasia Smear Path Review VBG pH 7.47 H VBG pCO2 27 VBG pO2 47 VBG HCO3 20 L VBG O2 Saturation 76.0 VBG Base Excess -2.0 Sodium Potassium Chloride Carbon Dioxide Anion Gap BUN Creatinine Estim Creat Clear Calc Estimated GFR POC Glucose 192 H 175 H Random Glucose Calcium Total Bilirubin AST ALT Alkaline Phosphatase Total Protein Albumin Random Vancomycin 06/13/21 06/13/21 06/13/21 05:36 05:36 05:39 WBC 31.0 H* RBC 3.10 L Hgb 9.3 L Hct 27.6 L MCV 89.0 MCH 30.0 MCHC 33.7 RDW 16.7 H Plt Count 86 L MPV 11.0 Immature Gran % (Auto) Cancelled Neut % (Auto) Cancelled Lymph % (Auto) Cancelled [place] % (Auto) Cancelled Eos % (Auto) Cancelled Baso % (Auto) Cancelled Lymph # (Auto) Cancelled [place] # (Auto) Cancelled Eos # (Auto) Cancelled Baso # (Auto) Cancelled Abs Immat Gran (auto) Cancelled Absolute Neuts (auto) Cancelled Absolute Nucleated RBC 0.030 H Nucleated RBC % (auto) 0.1 Neutrophils % (Manual) 91 H Band Neutrophils % 5 Lymphocytes % (Manual) 3 L Metamyelocytes % 1 Abs Neuts (Manual) 29.8 H Lymphocytes # (Manual) 0.9 L Metamyelocytes # 0.3 Platelet Estimate DECREASED Plt Morphology Comment NORMAL RBC Morphology NOTED Hypochromasia 1+ (5-14) Smear Path Review VBG pH VBG pCO2 VBG pO2 VBG HCO3 VBG O2 Saturation VBG Base Excess Sodium 143 Potassium 4.2 Chloride 115 H Carbon Dioxide 19 L Anion Gap 13 BUN 97 H Creatinine 1.70 H Estim Creat Clear Calc 52.9 Estimated GFR 39 POC Glucose 166 H Random Glucose 191 H Calcium 7.4 L Total Bilirubin 0.7 AST 29 ALT 31 Alkaline Phosphatase 60 Total Protein 4.5 L Albumin 2.7 L Random Vancomycin 06/13/21 06/13/21 06/13/21 07:53 09:59 11:45 WBC RBC Hgb Hct MCV MCH MCHC RDW Plt Count MPV Immature Gran % (Auto) Neut % (Auto) Lymph % (Auto) [place] % (Auto) Eos % (Auto) Baso % (Auto) Lymph # (Auto) [place] # (Auto) Eos # (Auto) Baso # (Auto) Abs Immat Gran (auto) Absolute Neuts (auto) Absolute Nucleated RBC Nucleated RBC % (auto) Neutrophils % (Manual) Band Neutrophils % Lymphocytes % (Manual) Metamyelocytes % Abs Neuts (Manual) Lymphocytes # (Manual) Metamyelocytes # Platelet Estimate Plt Morphology Comment RBC Morphology Hypochromasia Smear Path Review VBG pH VBG pCO2 VBG pO2 VBG HCO3 VBG O2 Saturation VBG Base Excess Sodium Potassium Chloride Carbon Dioxide Anion Gap BUN Creatinine Estim Creat Clear Calc Estimated GFR POC Glucose 183 H 193 H 196 H Random Glucose Calcium Total Bilirubin AST ALT Alkaline Phosphatase Total Protein Albumin Random Vancomycin 06/13/21 06/13/21 06/13/21 14:06 14:52 15:55 WBC RBC Hgb Hct MCV MCH MCHC RDW Plt Count MPV Immature Gran % (Auto) Neut % (Auto) Lymph % (Auto) [place] % (Auto) Eos % (Auto) Baso % (Auto) Lymph # (Auto) [place] # (Auto) Eos # (Auto) Baso # (Auto) Abs Immat Gran (auto) Absolute Neuts (auto) Absolute Nucleated RBC Nucleated RBC % (auto) Neutrophils % (Manual) Band Neutrophils % Lymphocytes % (Manual) Metamyelocytes % Abs Neuts (Manual) Lymphocytes # (Manual) Metamyelocytes # Platelet Estimate Plt Morphology Comment RBC Morphology Hypochromasia Smear Path Review VBG pH VBG pCO2 VBG pO2 VBG HCO3 VBG O2 Saturation VBG Base Excess Sodium Potassium Chloride Carbon Dioxide Anion Gap BUN Creatinine Estim Creat Clear Calc Estimated GFR POC Glucose 221 H 214 H Random Glucose Calcium Total Bilirubin AST ALT Alkaline Phosphatase Total Protein Albumin Random Vancomycin 13.8 L Microbiology Microbiology Results: Microbiology 06/09/21 17:15 Blood - Venous Blood Culture - Final Staphylococcus aureus 06/09/21 17:10 Blood - Venous Blood Culture - Final Staphylococcus aureus 06/08/21 23:11 Blood - Venous Blood Culture - Final Staphylococcus aureus 06/08/21 23:11 Blood - Venous Blood Culture - Final Staphylococcus aureus Progress Note: A&P Assessment and plan (1) GI bleed: Status: Acute (2) Hypotension: Status: Acute (3) Bacteremia due to Gram-positive bacteria: Status: Acute (4) Atrial fibrillation with rapid ventricular response: Status: Acute (5) Acute renal failure: Status: Acute (6) COVID-19: Status: Acute (7) Elevated prostate specific antigen [PSA]: Status: Acute (8) BPH w urinary obs/LUTS: Status: Acute Assessment and Plan: so the plan is now for tube feedings to be introduced in addition to continued IV Protonix and recent day zelaya overnight with another attempt at weaning both sedation and pressure support ventilator wean as well in the morning Quality Stroke Does the patient have a stroke diagnosis?: No VTE Prior VTE?: No VTE Risk Level:: Medical - moderate - high VTE Device Contraindication: Treatment Not Indicated VTE Drug Contraindication: Treatment Not Indicated
--- NOTE | 2021-06-13 17:20 | PM.PNGS ---
Subjective Subjective Date of Service: 06/13/21 Interval history: Remains on the ventilator no reported melena extubation attempted today but patient currently was not able to tolerate this on low dose pressor. Physical Exam Vital Signs: Vital Signs: Last Vital Signs Temp 98.4 F 06/13/21 17:00 Pulse 96 06/13/21 17:00 Resp 17 06/13/21 17:00 BP 119/56 L 06/13/21 17:00 Pulse Ox 99 06/13/21 17:00 Oxygen Flow Rate 55 06/11/21 10:25 BMI result Body Mass Index 39.7 Const: Other: sedated, remains on the ventilator, intubated Resp: Other: on ventilator Cardio: Rhythm: abnormal rhythm Objective Data Active Medications Chlorhexidine Gluconate (Chlorhexidine Gluc Oral Rinse 15 Ml Mouthwash) 15 ml BUCCAL TID [facility] Last Admin: 06/13/21 08:05 Dose: 15 ml Documented by: RALPH Famotidine (Famotidine/Pf 20 Mg/2 Ml Vial) 20 mg IVPUSH DAILY [facility] Last Admin: 06/13/21 08:05 Dose: 20 mg Documented by: RALPH Norepinephrine Bitartrate (Levophed) 8 mg in 250 mls @ 0 mls/hr IVCONT .Q0M [facility]; Protocol Last Titration: 06/13/21 15:09 Dose: 0.07 mcg/kg/min, 16.77 mls/hr Documented by: RALPH Propofol (Diprivan) 1,000 mg in 100 mls @ 0 mls/hr IVCONT .Q0M [facility]; Protocol Last Titration: 06/13/21 14:36 Dose: 50 mcg/kg/min, 38.34 mls/hr Documented by: RALPH Insulin Human Regular (Myxredlin) 100 unit in 100 mls @ 0 mls/hr IVCONT .Q0M [facility] Last Infusion: 06/13/21 14:11 Dose: 2 unit/hr, 2 mls/hr Documented by: RALPH Cosigned by: ANAT Pantoprazole Sodium 80 mg/ (Sodium Chloride) 100 mls @ 10 mls/hr IV .Q10H [facility] Last Admin: 06/13/21 12:19 Dose: 8 mg/hr, 10 mls/hr Documented by: RALPH Doxycycline Hyclate 100 mg/ (Sodium Chloride) 250 mls @ 166.67 mls/hr IV Q12H [facility] Last Infusion: 06/13/21 14:22 Dose: 0 mls/hr Documented by: RALPH Lorazepam (Lorazepam 2 Mg/Ml Vial) 0.5 mg IVPUSH Q2H PRN PRN Reason: Ventilator synchrony Last Admin: 06/13/21 13:35 Dose: 0.5 mg Documented by: RALPH Pharmacy Consult (Consult Rx Perform Med Rec) 1 each MISCELLANE ONCE PRN PRN Reason: Consult order Pharmacy Consult (Consult Rx Vancomycin Dosing) 1 each MISCELLANE DAILY PRN PRN Reason: Consult order Sodium Chloride (0.9 % Sodium Chloride Flush 3 Ml Syringe) 3 ml IVFLUSH QSHIFT [facility] Last Admin: 06/13/21 08:05 Dose: 3 ml Documented by: RALPH Labs CBC & Chem 7: 06/13/21 05:36 06/13/21 05:36 Labs: Laboratory Results - last 24 hr 06/11/21 06/12/21 06/12/21 12:43 18:15 20:02 MCV MCH MCHC RDW Plt Count MPV Immature Gran % (Auto) Neut % (Auto) Lymph % (Auto) [place] % (Auto) Eos % (Auto) Baso % (Auto) Lymph # (Auto) [place] # (Auto) Eos # (Auto) Baso # (Auto) Abs Immat Gran (auto) Absolute Neuts (auto) Absolute Nucleated RBC Nucleated RBC % (auto) Neutrophils % (Manual) Band Neutrophils % Lymphocytes % (Manual) Metamyelocytes % Abs Neuts (Manual) Lymphocytes # (Manual) Metamyelocytes # Platelet Estimate Plt Morphology Comment RBC Morphology Hypochromasia Smear Path Review VBG pH VBG pCO2 VBG pO2 VBG HCO3 VBG O2 Saturation VBG Base Excess Anion Gap Estim Creat Clear Calc Estimated GFR POC Glucose 199 H 206 H Random Glucose Calcium Total Bilirubin AST ALT Alkaline Phosphatase Total Protein Albumin Random Vancomycin 06/12/21 06/12/21 06/13/21 22:06 23:32 02:01 MCV MCH MCHC RDW Plt Count MPV Immature Gran % (Auto) Neut % (Auto) Lymph % (Auto) [place] % (Auto) Eos % (Auto) Baso % (Auto) Lymph # (Auto) [place] # (Auto) Eos # (Auto) Baso # (Auto) Abs Immat Gran (auto) Absolute Neuts (auto) Absolute Nucleated RBC Nucleated RBC % (auto) Neutrophils % (Manual) Band Neutrophils % Lymphocytes % (Manual) Metamyelocytes % Abs Neuts (Manual) Lymphocytes # (Manual) Metamyelocytes # Platelet Estimate Plt Morphology Comment RBC Morphology Hypochromasia Smear Path Review VBG pH VBG pCO2 VBG pO2 VBG HCO3 VBG O2 Saturation VBG Base Excess Anion Gap Estim Creat Clear Calc Estimated GFR POC Glucose 201 H 199 H 192 H Random Glucose Calcium Total Bilirubin AST ALT Alkaline Phosphatase Total Protein Albumin Random Vancomycin 06/13/21 06/13/21 06/13/21 03:56 05:35 05:36 MCV 89.0 MCH 30.0 MCHC 33.7 RDW 16.7 H Plt Count 86 L MPV 11.0 Immature Gran % (Auto) Cancelled Neut % (Auto) Cancelled Lymph % (Auto) Cancelled [place] % (Auto) Cancelled Eos % (Auto) Cancelled Baso % (Auto) Cancelled Lymph # (Auto) Cancelled [place] # (Auto) Cancelled Eos # (Auto) Cancelled Baso # (Auto) Cancelled Abs Immat Gran (auto) Cancelled Absolute Neuts (auto) Cancelled Absolute Nucleated RBC 0.030 H Nucleated RBC % (auto) 0.1 Neutrophils % (Manual) 91 H Band Neutrophils % 5 Lymphocytes % (Manual) 3 L Metamyelocytes % 1 Abs Neuts (Manual) 29.8 H Lymphocytes # (Manual) 0.9 L Metamyelocytes # 0.3 Platelet Estimate DECREASED Plt Morphology Comment NORMAL RBC Morphology NOTED Hypochromasia 1+ (5-14) Smear Path Review VBG pH 7.47 H VBG pCO2 27 VBG pO2 47 VBG HCO3 20 L VBG O2 Saturation 76.0 VBG Base Excess -2.0 Anion Gap Estim Creat Clear Calc Estimated GFR POC Glucose 175 H Random Glucose Calcium Total Bilirubin AST ALT Alkaline Phosphatase Total Protein Albumin Random Vancomycin 06/13/21 06/13/21 06/13/21 05:36 05:39 07:53 MCV MCH MCHC RDW Plt Count MPV Immature Gran % (Auto) Neut % (Auto) Lymph % (Auto) [place] % (Auto) Eos % (Auto) Baso % (Auto) Lymph # (Auto) [place] # (Auto) Eos # (Auto) Baso # (Auto) Abs Immat Gran (auto) Absolute Neuts (auto) Absolute Nucleated RBC Nucleated RBC % (auto) Neutrophils % (Manual) Band Neutrophils % Lymphocytes % (Manual) Metamyelocytes % Abs Neuts (Manual) Lymphocytes # (Manual) Metamyelocytes # Platelet Estimate Plt Morphology Comment RBC Morphology Hypochromasia Smear Path Review VBG pH VBG pCO2 VBG pO2 VBG HCO3 VBG O2 Saturation VBG Base Excess Anion Gap 13 Estim Creat Clear Calc 52.9 Estimated GFR 39 POC Glucose 166 H 183 H Random Glucose 191 H Calcium 7.4 L Total Bilirubin 0.7 AST 29 ALT 31 Alkaline Phosphatase 60 Total Protein 4.5 L Albumin 2.7 L Random Vancomycin 06/13/21 06/13/21 06/13/21 09:59 11:45 14:06 MCV MCH MCHC RDW Plt Count MPV Immature Gran % (Auto) Neut % (Auto) Lymph % (Auto) [place] % (Auto) Eos % (Auto) Baso % (Auto) Lymph # (Auto) [place] # (Auto) Eos # (Auto) Baso # (Auto) Abs Immat Gran (auto) Absolute Neuts (auto) Absolute Nucleated RBC Nucleated RBC % (auto) Neutrophils % (Manual) Band Neutrophils % Lymphocytes % (Manual) Metamyelocytes % Abs Neuts (Manual) Lymphocytes # (Manual) Metamyelocytes # Platelet Estimate Plt Morphology Comment RBC Morphology Hypochromasia Smear Path Review VBG pH VBG pCO2 VBG pO2 VBG HCO3 VBG O2 Saturation VBG Base Excess Anion Gap Estim Creat Clear Calc Estimated GFR POC Glucose 193 H 196 H 221 H Random Glucose Calcium Total Bilirubin AST ALT Alkaline Phosphatase Total Protein Albumin Random Vancomycin 06/13/21 06/13/21 14:52 15:55 MCV MCH MCHC RDW Plt Count MPV Immature Gran % (Auto) Neut % (Auto) Lymph % (Auto) [place] % (Auto) Eos % (Auto) Baso % (Auto) Lymph # (Auto) [place] # (Auto) Eos # (Auto) Baso # (Auto) Abs Immat Gran (auto) Absolute Neuts (auto) Absolute Nucleated RBC Nucleated RBC % (auto) Neutrophils % (Manual) Band Neutrophils % Lymphocytes % (Manual) Metamyelocytes % Abs Neuts (Manual) Lymphocytes # (Manual) Metamyelocytes # Platelet Estimate Plt Morphology Comment RBC Morphology Hypochromasia Smear Path Review VBG pH VBG pCO2 VBG pO2 VBG HCO3 VBG O2 Saturation VBG Base Excess Anion Gap Estim Creat Clear Calc Estimated GFR POC Glucose 214 H Random Glucose Calcium Total Bilirubin AST ALT Alkaline Phosphatase Total Protein Albumin Random Vancomycin 13.8 L Procedures Date of Service Date of Service: 06/13/21 Progress Note: A&P Assessment and plan (1) GI bleed: Status: Acute Assessment and Plan: no further episodes of melena times 48 hours hemoglobin has been stable keep patient off anticoagulants, NSAIDs continue PPI management as per sap basis administrator Fall Risk Details Current Medications: Current Medications Chlorhexidine Gluconate (Chlorhexidine Gluc Oral Rinse 15 Ml Mouthwash) 15 ml BUCCAL TID [facility] Last Admin: 06/13/21 08:05 Dose: 15 ml Documented by: Famotidine (Famotidine/Pf 20 Mg/2 Ml Vial) 20 mg IVPUSH DAILY [facility] Last Admin: 06/13/21 08:05 Dose: 20 mg Documented by: Norepinephrine Bitartrate (Levophed) 8 mg in 250 mls @ 0 mls/hr IVCONT .Q0M [facility]; Protocol Last Titration: 06/13/21 15:09 Dose: 0.07 mcg/kg/min, 16.77 mls/hr Documented by: Propofol (Diprivan) 1,000 mg in 100 mls @ 0 mls/hr IVCONT .Q0M [facility]; Protocol Last Titration: 06/13/21 14:36 Dose: 50 mcg/kg/min, 38.34 mls/hr Documented by: Insulin Human Regular (Myxredlin) 100 unit in 100 mls @ 0 mls/hr IVCONT .Q0M [facility] Last Infusion: 06/13/21 14:11 Dose: 2 unit/hr, 2 mls/hr Documented by: Pantoprazole Sodium 80 mg/ (Sodium Chloride) 100 mls @ 10 mls/hr IV .Q10H [facility] Last Admin: 06/13/21 12:19 Dose: 8 mg/hr, 10 mls/hr Documented by: Doxycycline Hyclate 100 mg/ (Sodium Chloride) 250 mls @ 166.67 mls/hr IV Q12H [facility] Last Infusion: 06/13/21 14:22 Dose: Infused Documented by: Lorazepam (Lorazepam 2 Mg/Ml Vial) 0.5 mg IVPUSH Q2H PRN PRN Reason: Ventilator synchrony Last Admin: 06/13/21 13:35 Dose: 0.5 mg Documented by: Pharmacy Consult (Consult Rx Perform Med Rec) 1 each MISCELLANE ONCE PRN PRN Reason: Consult order Pharmacy Consult (Consult Rx Vancomycin Dosing) 1 each MISCELLANE DAILY PRN PRN Reason: Consult order Sodium Chloride (0.9 % Sodium Chloride Flush 3 Ml Syringe) 3 ml IVFLUSH QSHIFT [facility] Last Admin: 06/13/21 08:05 Dose: 3 ml Documented by: Time Spent With Patient Time: Total time spent is greater than 50% in coordination of care (as documented) at patient's floor/unit and/or counseling patient: Time with patient: 15 - 24 minutes Quality Stroke Does the patient have a stroke diagnosis?: No VTE Prior VTE?: No VTE Risk Level:: Medical - moderate - high VTE Device Contraindication: Treatment Not Indicated VTE Drug Contraindication: Treatment Not Indicated
[2021-06-13 17:43] LABS: Hematocrit 26.9 % (42.0-52.0); Hemoglobin 9.1 g/dl (14.0-18.0); Mean Corpuscular HGB Conc 33.8 g/dl (31.0-36.0); Mean Corpuscular Hemoglobin 30.1 pg (27.0-33.0); Mean Corpuscular Volume 89.1 fL (80.0-98.0); Mean Platelet Volume 11.3 fL (9.4-12.4); NRBC Pct Auto 0.1 /100WBC (0.0-0.2); Red Blood Count 3.02 X10*6/uL (4.60-5.80); Red Cell Distribution Width 16.8 % (11.0-16.0)
[2021-06-13 17:50] LABS: Platelet Count 98 X10*3/uL (160-400); White Blood Count 32.7 X10*3/uL (4.8-10.8)
[2021-06-13 18:04] LABS: Glucose, Whole Blood 182 mg/dL (60-115)
[2021-06-13 18:07] LABS: Acanthocytes 1+ (0-2) /OIF; Band Neutrophils Percent 4 % (3-5); Large Platelet PRESENT; Lymphocytes Absolute Manual 0.3 X10*3/uL (1.2-4.9); Lymphocytes Percent Manual 1 % (20-40); Macrocytosis 1+ (5-14) /OIF; Monocytes Absolute Manual 0.7 X10*3/uL (0.1-1.2); Monocytes Percent Manual 2 % (2-11); Neutrophils Absolute Manual 31.4 X10*3/uL (2.0-8.3); Neutrophils Percent Manual 92 % (45-73); Ovalocytes 1+ (5-14) /OIF; Platelet Estimate DECREASED (NORMAL); Platelet Morphology Comment NOTED; Promyelocytes Absolute 0.3 X10*3/uL; Promyelocytes Percent 1 %; RBC Morphology NOTED; Target Cells 1+ (5-14) /OIF
[2021-06-13 18:08] LABS: Polychromasia 2+ (3-5) /OIF
--- NOTE | 2021-06-13 18:12 | PC.NURSE ---
VSS on levophed gtt, tmax 99, SR on tele. Pt trialed on sedation vacation from [id number]. pt able to follow commands and nod yes/no off sedation Pt trialed on Pressure support 15/5, 30%. respiratory rate increased, put back on sedation Pressure control ip 20, peep 5, 30% rate 14. pt tolerating well. u/o wnl, had 5 mod-large BMs, repo q2hr, prevalon mattress, and barrier cream applied. OG tube placed, cxr pending, will start tube feed when placement confirmed updated on plan of care and about sedation vacation.
[2021-06-13 20:21] LABS: Glucose, Whole Blood 182 mg/dL (60-115)
[2021-06-13 21:42] LABS: Glucose, Whole Blood 172 mg/dL (60-115)
[2021-06-13 23:45] LABS: Glucose, Whole Blood 182 mg/dL (60-115)
[2021-06-14] VITALS (30 sets, daily range): BP systolic 96–181; BP diastolic 30–69; PULSE 69–106; RESP 6–35; TEMP 35–37.8; O2SAT 94–100; BMI 39.8
[2021-06-14] MEDS: propofoL 1,000 MG/100 ML VIAL 38.34 MG IVCONT ×3 (00:06→05:25)
[2021-06-14] MEDS: 0.9 % Sodium Chloride Flush 3 ML SYRINGE IVFLUSH ×3 (00:07→13:55)
[2021-06-14] MEDS: Doxycycline Hyclate 100 MG in 0.9 % Sodium Chloride 250 ML 166.67 MG IV ×2 (00:07→12:39)
[2021-06-14 01:45] LABS: Glucose, Whole Blood 191 mg/dL (60-115)
[2021-06-14 03:38] LABS: Glucose, Whole Blood 182 mg/dL (60-115)
[2021-06-14 05:46] LABS: VBG Base Excess -1.6 mmol/L; VBG HCO3 21 mmol/L (22-26); VBG pCO2 28 mmHg; VBG pH 7.47 (7.32-7.43); VBG pO2 46 mmHg
[2021-06-14 05:52] LABS: Hematocrit 27.3 % (42.0-52.0); Hemoglobin 8.8 g/dl (14.0-18.0); Mean Corpuscular HGB Conc 32.2 g/dl (31.0-36.0); Mean Corpuscular Hemoglobin 28.9 pg (27.0-33.0); Mean Corpuscular Volume 89.5 fL (80.0-98.0); Mean Platelet Volume 11.4 fL (9.4-12.4); NRBC Pct Auto 0.2 /100WBC (0.0-0.2); Platelet Count 115 X10*3/uL (160-400); Red Blood Count 3.05 X10*6/uL (4.60-5.80); Red Cell Distribution Width 16.9 % (11.0-16.0); White Blood Count 28.9 X10*3/uL (4.8-10.8)
[2021-06-14 06:12] LABS: Glucose, Whole Blood 204 mg/dL (60-115)
[2021-06-14 06:14] LABS: Alanine Aminotransferase 29 U/L (0-40); Albumin Level 2.6 g/dL (3.5-5.0); Alkaline Phosphatase 67 U/L (39-117); Anion Gap 12 (12-20); Aspartate Amino Transferase 27 U/L (5-37); Bilirubin Total 0.6 mg/dL (0.0-1.0); Blood Urea Nitrogen 68 mg/dL (9-16); Calcium 7.7 mg/dL (8.4-10.2); Carbon Dioxide 21 mmol/L (22-29); Chloride 117 mmol/L (96-108); Creatinine Clr Calc Pharmacy 62.1; Estimated Glomerular Filt Rate 47; Glucose Random 231 mg/dL (60-115); Potassium 4.2 mmol/L (3.3-5.1); Sodium 146 mmol/L (135-145); Total Protein 4.7 g/dL (6.5-8.0)
[2021-06-14 06:41] LABS: Band Neutrophils Percent 2 % (3-5); Lymphocytes Absolute Manual 1.2 X10*3/uL (1.2-4.9); Lymphocytes Percent Manual 4 % (20-40); Metamyelocytes Absolute 0.9 X10*3/uL; Metamyelocytes Percent 3 %; Monocytes Absolute Manual 0.6 X10*3/uL (0.1-1.2); Monocytes Percent Manual 2 % (2-11); Myelocytes Absolute 0.3 X10*/uL; Myelocytes Percent 1 %; Neutrophils Percent Manual 88 % (45-73)
[2021-06-14 06:42] LABS: Venous Blood Gas Refer to POC result
[2021-06-14 06:43] LABS: Burr Cells 1+ (0-2) /OIF; Hypochromasia 1+ (5-14) /OIF; Polychromasia 1+ (0-2) /OIF; RBC Morphology NOTED; Target Cells 1+ (5-14) /OIF
[2021-06-14 06:45] LABS: Platelet Estimate DECREASED (NORMAL); Platelet Morphology Comment NORMAL
[2021-06-14 07:54] LABS: Glucose, Whole Blood 187 mg/dL (60-115)
[2021-06-14] MEDS: Chlorhexidine Gluc Oral Rinse 15 ML MOUTHWASH BUCCAL ×3 (09:06→20:22)
[2021-06-14] MEDS: Pantoprazole Sodium 80 MG in 0.9 % Sodium Chloride 80 ML 10 MG IV ×2 (09:06→17:46)
[2021-06-14] MEDS: Famotidine/PF 20 MG/2 ML VIAL IVPUSH (09:08)
[2021-06-14 09:52] LABS: Glucose, Whole Blood 185 mg/dL (60-115)
--- NOTE | 2021-06-14 10:07 | MHC.CLN ---
F/U PT REMAINS INTUBATED AND SEDATED PT CURRENTLY RECEIVING GLUCERNA AT MAX GOAL RATE 50ML/HR TO PROVIDE 1200KCALS, 50G PROTEIN, 1024CC FREE WATER FROM FORMULA CURRENT FORMULA DOES NOT MEET PROTEIN NEEDS RECOMMEND PROMOTE AT MAX GOAL RATE 55ML/HR TO PROVIDE 1320KCLAS (2130KCALS WITH SEDATION; 26KCALS/KG), 82.5G PROTEIN (1.0G/KG), 1107ML WATER FROM FORMULA START FORMULA AT 20ML/HR AND INCREASE BY 10ML Q 4 HRS UNTIL MAX GOAL IS ACHIEVED MONITOR TOLERANCE, RESIDUALS AND LYTES
[2021-06-14] MEDS: propofoL 1,000 MG/100 ML VIAL 30.67 MG IVCONT ×4 (10:15→21:20)
--- NOTE | 2021-06-14 11:50 | P.PNGS_ITS ---
Subjective Subjective Date of Service: 06/14/21 Interval history: No events reported Still on ventilator Very low-dose pressor Physical Exam Vital Signs: Vital Signs: Last Vital Signs Temp 98.8 F 06/14/21 11:00 Pulse 96 06/14/21 11:00 Resp 14 06/14/21 11:00 BP 139/57 L 06/14/21 11:00 Pulse Ox 96 06/14/21 11:00 Oxygen Flow Rate 55 06/11/21 10:25 BMI result Body Mass Index 39.8 Const: Other: Sedated, on ventilator General: no acute distress Resp: Other: On ventilator Effort & Inspection: normal respiratory effort Cardio: Rhythm: abnormal rhythm Objective Data Active Medications Chlorhexidine Gluconate (Chlorhexidine Gluc Oral Rinse 15 Ml Mouthwash) 15 ml BUCCAL TID [facility] Last Admin: 06/14/21 09:06 Dose: 15 ml Documented by: BRANDON Famotidine (Famotidine/Pf 20 Mg/2 Ml Vial) 20 mg IVPUSH DAILY [facility] Last Admin: 06/14/21 09:08 Dose: 20 mg Documented by: BRANDON Norepinephrine Bitartrate (Levophed) 8 mg in 250 mls @ 0 mls/hr IVCONT .Q0M [facility]; Protocol Last Admin: 06/14/21 02:53 Dose: 0.07 mcg/kg/min, 16.77 mls/hr Documented by: CHEN Propofol (Diprivan) 1,000 mg in 100 mls @ 0 mls/hr IVCONT .Q0M [facility]; Protocol Last Admin: 06/14/21 10:15 Dose: 40 mcg/kg/min, 30.67 mls/hr Documented by: BRANDON Insulin Human Regular (Myxredlin) 100 unit in 100 mls @ 0 mls/hr IVCONT .Q0M [facility] Last Infusion: 06/14/21 05:57 Dose: 3 unit/hr, 3 mls/hr Documented by: CHEN Cosigned by: TYRA Pantoprazole Sodium 80 mg/ (Sodium Chloride) 100 mls @ 10 mls/hr IV .Q10H [facility] Last Admin: 06/14/21 09:06 Dose: 8 mg/hr, 10 mls/hr Documented by: BRANDON Doxycycline Hyclate 100 mg/ (Sodium Chloride) 250 mls @ 166.67 mls/hr IV Q12H [facility] Last Infusion: 06/14/21 01:48 Dose: 0 mls/hr Documented by: CHEN Lorazepam (Lorazepam 2 Mg/Ml Vial) 0.5 mg IVPUSH Q2H PRN PRN Reason: Ventilator synchrony Last Admin: 06/13/21 13:35 Dose: 0.5 mg Documented by: RALPH Pharmacy Consult (Consult Rx Perform Med Rec) 1 each MISCELLANE ONCE PRN PRN Reason: Consult order Pharmacy Consult (Consult Rx Vancomycin Dosing) 1 each MISCELLANE DAILY PRN PRN Reason: Consult order Sodium Chloride (0.9 % Sodium Chloride Flush 3 Ml Syringe) 3 ml IVFLUSH QSHIFT [facility] Last Admin: 06/14/21 09:06 Dose: 3 ml Documented by: BRANDON Labs CBC & Chem 7: 06/14/21 05:43 06/14/21 05:43 Labs: Laboratory Results - last 24 hr 06/10/21 06/13/21 06/13/21 13:26 11:45 14:06 MCV MCH MCHC RDW Plt Count MPV Immature Gran % (Auto) Neut % (Auto) Lymph % (Auto) Chaves % (Auto) Eos % (Auto) Baso % (Auto) Lymph # (Auto) [place]aves # (Auto) Eos # (Auto) Baso # (Auto) Abs Immat Gran (auto) Absolute Neuts (auto) Absolute Nucleated RBC Nucleated RBC % (auto) Neutrophils % (Manual) Band Neutrophils % Lymphocytes % (Manual) Monocytes % (Manual) Metamyelocytes % Myelocytes % Promyelocytes % Abs Neuts (Manual) Lymphocytes # (Manual) Monocytes # (Manual) Metamyelocytes # Myelocytes # Promyelocytes # Platelet Estimate Large Platelets Plt Morphology Comment RBC Morphology Polychromasia Hypochromasia Macrocytosis Target Cells Ovalocytes Obie Cells Acanthocytes (Spur) VBG pH VBG pCO2 VBG pO2 VBG HCO3 VBG O2 Saturation VBG Base Excess Anion Gap Estim Creat Clear Calc Estimated GFR POC Glucose 196 H 221 H Random Glucose Calcium Total Bilirubin AST ALT Alkaline Phosphatase Total Protein Albumin Random Vancomycin Crossmatch See Detail 06/13/21 06/13/21 06/13/21 14:52 15:55 17:11 MCV 89.1 MCH 30.1 MCHC 33.8 RDW 16.8 H Plt Count 98 L MPV 11.3 Immature Gran % (Auto) Cancelled Neut % (Auto) Cancelled Lymph % (Auto) Cancelled Chaves % (Auto) Cancelled Eos % (Auto) Cancelled Baso % (Auto) Cancelled Lymph # (Auto) Cancelled Chaves # (Auto) Cancelled Eos # (Auto) Cancelled Baso # (Auto) Cancelled Abs Immat Gran (auto) Cancelled Absolute Neuts (auto) Cancelled Absolute Nucleated RBC 0.030 H Nucleated RBC % (auto) 0.1 Neutrophils % (Manual) 92 H Band Neutrophils % 4 Lymphocytes % (Manual) 1 L Monocytes % (Manual) 2 Metamyelocytes % Myelocytes % Promyelocytes % 1 Abs Neuts (Manual) 31.4 H Lymphocytes # (Manual) 0.3 L Monocytes # (Manual) 0.7 Metamyelocytes # Myelocytes # Promyelocytes # 0.3 Platelet Estimate DECREASED Large Platelets PRESENT Plt Morphology Comment NOTED RBC Morphology NOTED Polychromasia 2+ (3-5) Hypochromasia Macrocytosis 1+ (5-14) Target Cells 1+ (5-14) Ovalocytes 1+ (5-14) [place] Cells Acanthocytes (Spur) 1+ (0-2) VBG pH VBG pCO2 VBG pO2 VBG HCO3 VBG O2 Saturation VBG Base Excess Anion Gap Estim Creat Clear Calc Estimated GFR POC Glucose 214 H Random Glucose Calcium Total Bilirubin AST ALT Alkaline Phosphatase Total Protein Albumin Random Vancomycin 13.8 L Crossmatch 06/13/21 06/13/21 06/13/21 17:56 19:56 21:38 MCV MCH MCHC RDW Plt Count MPV Immature Gran % (Auto) Neut % (Auto) Lymph % (Auto) [place] % (Auto) Eos % (Auto) Baso % (Auto) Lymph # (Auto) [place] # (Auto) Eos # (Auto) Baso # (Auto) Abs Immat Gran (auto) Absolute Neuts (auto) Absolute Nucleated RBC Nucleated RBC % (auto) Neutrophils % (Manual) Band Neutrophils % Lymphocytes % (Manual) Monocytes % (Manual) Metamyelocytes % Myelocytes % Promyelocytes % Abs Neuts (Manual) Lymphocytes # (Manual) Monocytes # (Manual) Metamyelocytes # Myelocytes # Promyelocytes # Platelet Estimate Large Platelets Plt Morphology Comment RBC Morphology Polychromasia Hypochromasia Macrocytosis Target Cells Ovalocytes Obie Cells Acanthocytes (Spur) VBG pH VBG pCO2 VBG pO2 VBG HCO3 VBG O2 Saturation VBG Base Excess Anion Gap Estim Creat Clear Calc Estimated GFR POC Glucose 182 H 182 H 172 H Random Glucose Calcium Total Bilirubin AST ALT Alkaline Phosphatase Total Protein Albumin Random Vancomycin Crossmatch 06/13/21 06/14/21 06/14/21 23:40 01:40 03:18 MCV MCH MCHC RDW Plt Count MPV Immature Gran % (Auto) Neut % (Auto) Lymph % (Auto) [place]aves % (Auto) Eos % (Auto) Baso % (Auto) Lymph # (Auto) [place]aves # (Auto) Eos # (Auto) Baso # (Auto) Abs Immat Gran (auto) Absolute Neuts (auto) Absolute Nucleated RBC Nucleated RBC % (auto) Neutrophils % (Manual) Band Neutrophils % Lymphocytes % (Manual) Monocytes % (Manual) Metamyelocytes % Myelocytes % Promyelocytes % Abs Neuts (Manual) Lymphocytes # (Manual) Monocytes # (Manual) Metamyelocytes # Myelocytes # Promyelocytes # Platelet Estimate Large Platelets Plt Morphology Comment RBC Morphology Polychromasia Hypochromasia Macrocytosis Target Cells Ovalocytes Obie Cells Acanthocytes (Spur) VBG pH VBG pCO2 VBG pO2 VBG HCO3 VBG O2 Saturation VBG Base Excess Anion Gap Estim Creat Clear Calc Estimated GFR POC Glucose 182 H 191 H 182 H Random Glucose Calcium Total Bilirubin AST ALT Alkaline Phosphatase Total Protein Albumin Random Vancomycin Crossmatch 06/14/21 06/14/21 06/14/21 05:40 05:41 05:43 MCV 89.5 MCH 28.9 MCHC 32.2 RDW 16.9 H Plt Count 115 L MPV 11.4 Immature Gran % (Auto) Cancelled Neut % (Auto) Cancelled Lymph % (Auto) Cancelled Chaves % (Auto) Cancelled Eos % (Auto) Cancelled Baso % (Auto) Cancelled Lymph # (Auto) Cancelled Chaves # (Auto) Cancelled Eos # (Auto) Cancelled Baso # (Auto) Cancelled Abs Immat Gran (auto) Cancelled Absolute Neuts (auto) Cancelled Absolute Nucleated RBC 0.050 H Nucleated RBC % (auto) 0.2 Neutrophils % (Manual) 88 H Band Neutrophils % 2 L Lymphocytes % (Manual) 4 L Monocytes % (Manual) 2 Metamyelocytes % 3 Myelocytes % 1 Promyelocytes % Abs Neuts (Manual) 26.0 H Lymphocytes # (Manual) 1.2 Monocytes # (Manual) 0.6 Metamyelocytes # 0.9 Myelocytes # 0.3 Promyelocytes # Platelet Estimate DECREASED Large Platelets Plt Morphology Comment NORMAL RBC Morphology NOTED Polychromasia 1+ (0-2) Hypochromasia 1+ (5-14) Macrocytosis Target Cells 1+ (5-14) Ovalocytes Obie Cells 1+ (0-2) Acanthocytes (Spur) VBG pH 7.47 H VBG pCO2 28 VBG pO2 46 VBG HCO3 21 L VBG O2 Saturation 73.0 VBG Base Excess -1.6 Anion Gap Estim Creat Clear Calc Estimated GFR POC Glucose 204 H Random Glucose Calcium Total Bilirubin AST ALT Alkaline Phosphatase Total Protein Albumin Random Vancomycin Crossmatch 06/14/21 06/14/21 06/14/21 05:43 07:51 09:48 MCV MCH MCHC RDW Plt Count MPV Immature Gran % (Auto) Neut % (Auto) Lymph % (Auto) Chaves % (Auto) Eos % (Auto) Baso % (Auto) Lymph # (Auto) [place]aves # (Auto) Eos # (Auto) Baso # (Auto) Abs Immat Gran (auto) Absolute Neuts (auto) Absolute Nucleated RBC Nucleated RBC % (auto) Neutrophils % (Manual) Band Neutrophils % Lymphocytes % (Manual) Monocytes % (Manual) Metamyelocytes % Myelocytes % Promyelocytes % Abs Neuts (Manual) Lymphocytes # (Manual) Monocytes # (Manual) Metamyelocytes # Myelocytes # Promyelocytes # Platelet Estimate Large Platelets Plt Morphology Comment RBC Morphology Polychromasia Hypochromasia Macrocytosis Target Cells Ovalocytes Obie Cells Acanthocytes (Spur) VBG pH VBG pCO2 VBG pO2 VBG HCO3 VBG O2 Saturation VBG Base Excess Anion Gap 12 Estim Creat Clear Calc 62.1 Estimated GFR 47 POC Glucose 187 H 185 H Random Glucose 231 H Calcium 7.7 L Total Bilirubin 0.6 AST 27 ALT 29 Alkaline Phosphatase 67 Total Protein 4.7 L Albumin 2.6 L Random Vancomycin Crossmatch Procedures Date of Service Date of Service: 06/14/21 Progress Note: A&P Assessment and plan (1) GI bleed: Status: Acute Assessment and Plan: Slight drift in hemoglobin Continue PPI Hold anticoagulation, NSAIDs Vent management Stable so far Fall Risk Details Current Medications: Current Medications Chlorhexidine Gluconate (Chlorhexidine Gluc Oral Rinse 15 Ml Mouthwash) 15 ml BUCCAL TID [facility] Last Admin: 06/14/21 09:06 Dose: 15 ml Documented by: Famotidine (Famotidine/Pf 20 Mg/2 Ml Vial) 20 mg IVPUSH DAILY [facility] Last Admin: 06/14/21 09:08 Dose: 20 mg Documented by: Norepinephrine Bitartrate (Levophed) 8 mg in 250 mls @ 0 mls/hr IVCONT .Q0M [facility]; Protocol Last Admin: 06/14/21 02:53 Dose: 0.07 mcg/kg/min, 16.77 mls/hr Documented by: Propofol (Diprivan) 1,000 mg in 100 mls @ 0 mls/hr IVCONT .Q0M [facility]; Protocol Last Admin: 06/14/21 10:15 Dose: 40 mcg/kg/min, 30.67 mls/hr Documented by: Insulin Human Regular (Myxredlin) 100 unit in 100 mls @ 0 mls/hr IVCONT .Q0M [facility] Last Infusion: 06/14/21 05:57 Dose: 3 unit/hr, 3 mls/hr Documented by: Pantoprazole Sodium 80 mg/ (Sodium Chloride) 100 mls @ 10 mls/hr IV .Q10H [facility] Last Admin: 06/14/21 09:06 Dose: 8 mg/hr, 10 mls/hr Documented by: Doxycycline Hyclate 100 mg/ (Sodium Chloride) 250 mls @ 166.67 mls/hr IV Q12H [facility] Last Infusion: 06/14/21 01:48 Dose: Infused Documented by: Lorazepam (Lorazepam 2 Mg/Ml Vial) 0.5 mg IVPUSH Q2H PRN PRN Reason: Ventilator synchrony Last Admin: 06/13/21 13:35 Dose: 0.5 mg Documented by: Pharmacy Consult (Consult Rx Perform Med Rec) 1 each MISCELLANE ONCE PRN PRN Reason: Consult order Pharmacy Consult (Consult Rx Vancomycin Dosing) 1 each MISCELLANE DAILY PRN PRN Reason: Consult order Sodium Chloride (0.9 % Sodium Chloride Flush 3 Ml Syringe) 3 ml IVFLUSH QSHIFT [facility] Last Admin: 06/14/21 09:06 Dose: 3 ml Documented by: Time Spent With Patient Time: Total time spent is greater than 50% in coordination of care (as docu mented) at patient's floor/unit and/or counseling patient: Time with patient: 15 - 24 minutes Quality Stroke Does the patient have a stroke diagnosis?: No VTE Prior VTE?: No VTE Risk Level:: Medical - moderate - high VTE Device Contraindication: Treatment Not Indicated VTE Drug Contraindication: Treatment Not Indicated
[2021-06-14 12:14] LABS: Glucose, Whole Blood 213 mg/dL (60-115)
[2021-06-14 14:25] LABS: Glucose, Whole Blood 210 mg/dL (60-115)
[2021-06-14] MEDS: propofoL 1,000 MG/100 ML VIAL 23 MG IVCONT (15:19)
[2021-06-14 16:01] LABS: Glucose, Whole Blood 169 mg/dL (60-115)
--- NOTE | 2021-06-14 16:09 | PM.GIPN ---
Subjective Subjective Date of Service: 06/14/21 Interval History: sedated on vent Critical Care Time (minutes): 0 Physical Exam Vital Signs: Vital Signs: Last Vital Signs Temp 99.1 F 06/14/21 15:00 Pulse 90 06/14/21 16:00 Resp 14 06/14/21 16:00 BP 136/48 L 06/14/21 16:00 Pulse Ox 100 06/14/21 16:00 Oxygen Flow Rate 55 06/11/21 10:25 BMI result Body Mass Index 39.8 Objective Data Labs CBC & Chem 7: 06/14/21 05:43 06/14/21 05:43 Procedures Date of Service Date of Service: 06/14/21 Progress Note: A&P Assessment and plan (1) GI bleed: Status: Acute Assessment and Plan: hematocrit stable tolerating tube feeds can switch pantoprazole to 40 mg iv bid. wean when ready. Fall Risk Details Current Medications: Current Medications Chlorhexidine Gluconate (Chlorhexidine Gluc Oral Rinse 15 Ml Mouthwash) 15 ml BUCCAL TID [facility] Last Admin: 06/14/21 13:54 Dose: 15 ml Documented by: Famotidine (Famotidine/Pf 20 Mg/2 Ml Vial) 20 mg IVPUSH DAILY [facility] Last Admin: 06/14/21 09:08 Dose: 20 mg Documented by: Norepinephrine Bitartrate (Levophed) 8 mg in 250 mls @ 0 mls/hr IVCONT .Q0M [facility]; Protocol Last Titration: 06/14/21 15:53 Dose: 0.04 mcg/kg/min, 9.59 mls/hr Documented by: Propofol (Diprivan) 1,000 mg in 100 mls @ 0 mls/hr IVCONT .Q0M [facility]; Protocol Last Admin: 06/14/21 15:19 Dose: 30 mcg/kg/min, 23 mls/hr Documented by: Insulin Human Regular (Myxredlin) 100 unit in 100 mls @ 0 mls/hr IVCONT .Q0M [facility] Last Infusion: 06/14/21 16:00 Dose: 3 unit/hr, 3 mls/hr Documented by: Pantoprazole Sodium 80 mg/ (Sodium Chloride) 100 mls @ 10 mls/hr IV .Q10H [facility] Last Admin: 06/14/21 09:06 Dose: 8 mg/hr, 10 mls/hr Documented by: Doxycycline Hyclate 100 mg/ (Sodium Chloride) 250 mls @ 166.67 mls/hr IV Q12H [facility] Last Infusion: 06/14/21 14:13 Dose: Infused Documented by: Lorazepam (Lorazepam 2 Mg/Ml Vial) 0.5 mg IVPUSH Q2H PRN PRN Reason: Ventilator synchrony Last Admin: 06/13/21 13:35 Dose: 0.5 mg Documented by: Pharmacy Consult (Consult Rx Perform Med Rec) 1 each MISCELLANE ONCE PRN PRN Reason: Consult order Pharmacy Consult (Consult Rx Vancomycin Dosing) 1 each MISCELLANE DAILY PRN PRN Reason: Consult order Sodium Chloride (0.9 % Sodium Chloride Flush 3 Ml Syringe) 3 ml IVFLUSH QSHIFT [facility] Last Admin: 06/14/21 13:55 Dose: 3 ml Documented by: Time Spent With Patient Time: Total time spent is greater than 50% in coordination of care (as documented) at patient's floor/unit and/or counseling patient: Time with patient: less than 15 minutes Quality Stroke Does the patient have a stroke diagnosis?: No VTE Prior VTE?: No VTE Risk Level:: Medical - moderate - high VTE Device Contraindication: Treatment Not Indicated VTE Drug Contraindication: Treatment Not Indicated
--- NOTE | 2021-06-14 16:44 | PM.CCPN ---
Subjective Subjective Date of Service: 06/14/21 Interval History: 76-year-old morbidly obese type 2 diabetic and hypertensive presents with the weakness and constitutional complaints approximately 6 days ago and intubated now for 4 5 days when he developed an upper GI bleed with with co cautery of a bleeding blood vessel in his duodenum and has since been transfused and slow downward drifting hemoglobin yesterday 90 correction yesterday was 9.3 today 8.8 remains intubated cognitive function is okay when coming off the the propofol but the an to maintain a calm demeanor he had to be replaced on low-dose but remains of with with good tidal volumes comfortable FiO2 on pressure support at 15/5 and he was COVID positive but 4/4 blood cultures growing oxacillin sensitive Staph aureus and I do not have an origin for this but the on his anti staphylococcal medicines it he has slowly improving white count fairly even intake and output but he also did have an acute increase in troponin with a pattern indicating at least a subendocardial infarct and he originally presented in rapid atrial fibrillation and spontaneously converted back to normal sinus rhythm and also has slowly resolving acute on chronic stage III renal failure and of course nonoliguric Critical Care Time (minutes): 45 Physical Exam Vital Signs: Vital Signs: Last Vital Signs Temp 99.1 F 06/14/21 15:00 Pulse 90 06/14/21 16:00 Resp 14 06/14/21 16:00 BP 136/48 L 06/14/21 16:00 Pulse Ox 100 06/14/21 16:00 Oxygen Flow Rate 55 06/11/21 10:25 BMI result Body Mass Index 39.8 good cognitive function coming off propofol and nonfocal neurologic good bilateral carotid upstrokes no gallops bedside echo showing preserved left ventricular systolic reserve abdomen benign no organomegaly chest because by x-ray film still significant bilateral infiltrates skin is intact Objective Data Labs CBC & Chem 7: 06/14/21 05:43 06/14/21 05:43 Labs: Laboratory Results - last 24 hr 06/10/21 06/13/21 06/13/21 13:26 17:11 17:56 WBC 32.7 H* RBC 3.02 L Hgb 9.1 L Hct 26.9 L MCV 89.1 MCH 30.1 MCHC 33.8 RDW 16.8 H Plt Count 98 L MPV 11.3 Immature Gran % (Auto) Cancelled Neut % (Auto) Cancelled Lymph % (Auto) Cancelled [place] % (Auto) Cancelled Eos % (Auto) Cancelled Baso % (Auto) Cancelled Lymph # (Auto) Cancelled [place] # (Auto) Cancelled Eos # (Auto) Cancelled Baso # (Auto) Cancelled Abs Immat Gran (auto) Cancelled Absolute Neuts (auto) Cancelled Absolute Nucleated RBC 0.030 H Nucleated RBC % (auto) 0.1 Neutrophils % (Manual) 92 H Band Neutrophils % 4 Lymphocytes % (Manual) 1 L Monocytes % (Manual) 2 Metamyelocytes % Myelocytes % Promyelocytes % 1 Abs Neuts (Manual) 31.4 H Lymphocytes # (Manual) 0.3 L Monocytes # (Manual) 0.7 Metamyelocytes # Myelocytes # Promyelocytes # 0.3 Platelet Estimate DECREASED Large Platelets PRESENT Plt Morphology Comment NOTED RBC Morphology NOTED Polychromasia 2+ (3-5) Hypochromasia Macrocytosis 1+ (5-14) Target Cells 1+ (5-14) Ovalocytes 1+ (5-14) [place] Cells Acanthocytes (Spur) 1+ (0-2) VBG pH VBG pCO2 VBG pO2 VBG HCO3 VBG O2 Saturation VBG Base Excess Sodium Potassium Chloride Carbon Dioxide Anion Gap BUN Creatinine Estim Creat Clear Calc Estimated GFR POC Glucose 182 H Random Glucose Calcium Total Bilirubin AST ALT Alkaline Phosphatase Total Protein Albumin Crossmatch See Detail 06/13/21 06/13/21 06/13/21 19:56 21:38 23:40 WBC RBC Hgb Hct MCV MCH MCHC RDW Plt Count MPV Immature Gran % (Auto) Neut % (Auto) Lymph % (Auto) [place] % (Auto) Eos % (Auto) Baso % (Auto) Lymph # (Auto) [place] # (Auto) Eos # (Auto) Baso # (Auto) Abs Immat Gran (auto) Absolute Neuts (auto) Absolute Nucleated RBC Nucleated RBC % (auto) Neutrophils % (Manual) Band Neutrophils % Lymphocytes % (Manual) Monocytes % (Manual) Metamyelocytes % Myelocytes % Promyelocytes % Abs Neuts (Manual) Lymphocytes # (Manual) Monocytes # (Manual) Metamyelocytes # Myelocytes # Promyelocytes # Platelet Estimate Large Platelets Plt Morphology Comment RBC Morphology Polychromasia Hypochromasia Macrocytosis Target Cells Ovalocytes [facility] Cells Acanthocytes (Spur) VBG pH VBG pCO2 VBG pO2 VBG HCO3 VBG O2 Saturation VBG Base Excess Sodium Potassium Chloride Carbon Dioxide Anion Gap BUN Creatinine Estim Creat Clear Calc Estimated GFR POC Glucose 182 H 172 H 182 H Random Glucose Calcium Total Bilirubin AST ALT Alkaline Phosphatase Total Protein Albumin Crossmatch 06/14/21 06/14/21 06/14/21 01:40 03:18 05:40 WBC RBC Hgb Hct MCV MCH MCHC RDW Plt Count MPV Immature Gran % (Auto) Neut % (Auto) Lymph % (Auto) [place] % (Auto) Eos % (Auto) Baso % (Auto) Lymph # (Auto) [place] # (Auto) Eos # (Auto) Baso # (Auto) Abs Immat Gran (auto) Absolute Neuts (auto) Absolute Nucleated RBC Nucleated RBC % (auto) Neutrophils % (Manual) Band Neutrophils % Lymphocytes % (Manual) Monocytes % (Manual) Metamyelocytes % Myelocytes % Promyelocytes % Abs Neuts (Manual) Lymphocytes # (Manual) Monocytes # (Manual) Metamyelocytes # Myelocytes # Promyelocytes # Platelet Estimate Large Platelets Plt Morphology Comment RBC Morphology Polychromasia Hypochromasia Macrocytosis Target Cells Ovalocytes [facility] Cells Acanthocytes (Spur) VBG pH 7.47 H VBG pCO2 28 VBG pO2 46 VBG HCO3 21 L VBG O2 Saturation 73.0 VBG Base Excess -1.6 Sodium Potassium Chloride Carbon Dioxide Anion Gap BUN Creatinine Estim Creat Clear Calc Estimated GFR POC Glucose 191 H 182 H Random Glucose Calcium Total Bilirubin AST ALT Alkaline Phosphatase Total Protein Albumin Crossmatch 06/14/21 06/14/21 06/14/21 05:41 05:43 05:43 WBC 28.9 H RBC 3.05 L Hgb 8.8 L Hct 27.3 L MCV 89.5 MCH 28.9 MCHC 32.2 RDW 16.9 H Plt Count 115 L MPV 11.4 Immature Gran % (Auto) Cancelled Neut % (Auto) Cancelled Lymph % (Auto) Cancelled [place] % (Auto) Cancelled Eos % (Auto) Cancelled Baso % (Auto) Cancelled Lymph # (Auto) Cancelled [place] # (Auto) Cancelled Eos # (Auto) Cancelled Baso # (Auto) Cancelled Abs Immat Gran (auto) Cancelled Absolute Neuts (auto) Cancelled Absolute Nucleated RBC 0.050 H Nucleated RBC % (auto) 0.2 Neutrophils % (Manual) 88 H Band Neutrophils % 2 L Lymphocytes % (Manual) 4 L Monocytes % (Manual) 2 Metamyelocytes % 3 Myelocytes % 1 Promyelocytes % Abs Neuts (Manual) 26.0 H Lymphocytes # (Manual) 1.2 Monocytes # (Manual) 0.6 Metamyelocytes # 0.9 Myelocytes # 0.3 Promyelocytes # Platelet Estimate DECREASED Large Platelets Plt Morphology Comment NORMAL RBC Morphology NOTED Polychromasia 1+ (0-2) Hypochromasia 1+ (5-14) Macrocytosis Target Cells 1+ (5-14) Ovalocytes [facility] Cells 1+ (0-2) Acanthocytes (Spur) VBG pH VBG pCO2 VBG pO2 VBG HCO3 VBG O2 Saturation VBG Base Excess Sodium 146 H Potassium 4.2 Chloride 117 H Carbon Dioxide 21 L Anion Gap 12 BUN 68 H Creatinine 1.45 H Estim Creat Clear Calc 62.1 Estimated GFR 47 POC Glucose 204 H Random Glucose 231 H Calcium 7.7 L Total Bilirubin 0.6 AST 27 ALT 29 Alkaline Phosphatase 67 Total Protein 4.7 L Albumin 2.6 L Crossmatch 06/14/21 06/14/21 06/14/21 07:51 09:48 12:10 WBC RBC Hgb Hct MCV MCH MCHC RDW Plt Count MPV Immature Gran % (Auto) Neut % (Auto) Lymph % (Auto) [place] % (Auto) Eos % (Auto) Baso % (Auto) Lymph # (Auto) [place] # (Auto) Eos # (Auto) Baso # (Auto) Abs Immat Gran (auto) Absolute Neuts (auto) Absolute Nucleated RBC Nucleated RBC % (auto) Neutrophils % (Manual) Band Neutrophils % Lymphocytes % (Manual) Monocytes % (Manual) Metamyelocytes % Myelocytes % Promyelocytes % Abs Neuts (Manual) Lymphocytes # (Manual) Monocytes # (Manual) Metamyelocytes # Myelocytes # Promyelocytes # Platelet Estimate Large Platelets Plt Morphology Comment RBC Morphology Polychromasia Hypochromasia Macrocytosis Target Cells Ovalocytes [facility] Cells Acanthocytes (Spur) VBG pH VBG pCO2 VBG pO2 VBG HCO3 VBG O2 Saturation VBG Base Excess Sodium Potassium Chloride Carbon Dioxide Anion Gap BUN Creatinine Estim Creat Clear Calc Estimated GFR POC Glucose 187 H 185 H 213 H Random Glucose Calcium Total Bilirubin AST ALT Alkaline Phosphatase Total Protein Albumin Crossmatch 06/14/21 06/14/21 14:21 15:57 WBC RBC Hgb Hct MCV MCH MCHC RDW Plt Count MPV Immature Gran % (Auto) Neut % (Auto) Lymph % (Auto) [place] % (Auto) Eos % (Auto) Baso % (Auto) Lymph # (Auto) [place] # (Auto) Eos # (Auto) Baso # (Auto) Abs Immat Gran (auto) Absolute Neuts (auto) Absolute Nucleated RBC Nucleated RBC % (auto) Neutrophils % (Manual) Band Neutrophils % Lymphocytes % (Manual) Monocytes % (Manual) Metamyelocytes % Myelocytes % Promyelocytes % Abs Neuts (Manual) Lymphocytes # (Manual) Monocytes # (Manual) Metamyelocytes # Myelocytes # Promyelocytes # Platelet Estimate Large Platelets Plt Morphology Comment RBC Morphology Polychromasia Hypochromasia Macrocytosis Target Cells Ovalocytes [facility] Cells Acanthocytes (Spur) VBG pH VBG pCO2 VBG pO2 VBG HCO3 VBG O2 Saturation VBG Base Excess Sodium Potassium Chloride Carbon Dioxide Anion Gap BUN Creatinine Estim Creat Clear Calc Estimated GFR POC Glucose 210 H 169 H Random Glucose Calcium Total Bilirubin AST ALT Alkaline Phosphatase Total Protein Albumin Crossmatch Microbiology Microbiology Results: Microbiology 06/09/21 17:15 Blood - Venous Blood Culture - Final Staphylococcus aureus 06/09/21 17:10 Blood - Venous Blood Culture - Final Staphylococcus aureus 06/08/21 23:11 Blood - Venous Blood Culture - Final Staphylococcus aureus 06/08/21 23:11 Blood - Venous Blood Culture - Final Staphylococcus aureus Progress Note: A&P Assessment and plan (1) GI bleed: Status: Acute (2) Hypotension: Status: Acute (3) Bacteremia due to Gram-positive bacteria: Status: Acute (4) Atrial fibrillation with rapid ventricular response: Status: Acute (5) Acute renal failure: Status: Acute (6) COVID-19: Status: Acute (7) Weakness: Status: Acute (8) Nocturia associated with benign prostatic hyperplasia: Status: Acute (9) BPH w urinary obs/LUTS: Status: Acute (10) Elevated prostate specific antigen [PSA]: Status: Acute (11) Acute non-ST elevation myocardial infarction (NSTEMI): Status: Acute (12) Acute hypoxemic respiratory failure: Status: Acute Assessment and Plan: at this point I will the rest him on a slightly higher inspiratory pressure continue surveillance of sputum and and chest imaging in eventually he is going to need transesophageal echo Quality Stroke Does the patient have a stroke diagnosis?: No VTE Prior VTE?: No VTE Risk Level:: Medical - moderate - high VTE Device Contraindication: Treatment Not Indicated VTE Drug Contraindication: Treatment Not Indicated
[2021-06-14 17:54] LABS: Glucose, Whole Blood 177 mg/dL (60-115)
[2021-06-14 20:34] LABS: Glucose, Whole Blood 175 mg/dL (60-115)
[2021-06-14] MEDS: Insulin Regular/NS 100 UNIT/100 ML PLAST..BAG IVCONT (22:24)
[2021-06-14 22:46] LABS: Glucose, Whole Blood 181 mg/dL (60-115)
[2021-06-14 23:51] LABS: Glucose, Whole Blood 166 mg/dL (60-115)
[2021-06-15] VITALS (33 sets, daily range): BP systolic 97–165; BP diastolic 34–74; PULSE 86–117; RESP 15–36; TEMP 35–37.9; O2SAT 94–102; BMI 40.0
[2021-06-15] MEDS: propofoL 1,000 MG/100 ML VIAL 30.67 MG IVCONT ×3 (00:19→06:12)
[2021-06-15] MEDS: Doxycycline Hyclate 100 MG in 0.9 % Sodium Chloride 250 ML 166.67 MG IV ×2 (00:20→13:52)
[2021-06-15 01:39] LABS: Glucose, Whole Blood 158 mg/dL (60-115)
[2021-06-15] MEDS: Pantoprazole Sodium 80 MG in 0.9 % Sodium Chloride 80 ML 10 MG IV (03:09)
[2021-06-15 04:02] LABS: Glucose, Whole Blood 177 mg/dL (60-115)
[2021-06-15 06:07] LABS: Glucose, Whole Blood 171 mg/dL (60-115)
[2021-06-15 06:12] LABS: VBG Base Excess -0.2 mmol/L; VBG HCO3 22 mmol/L (22-26); VBG pCO2 31 mmHg; VBG pH 7.47 (7.32-7.43); VBG pO2 64 mmHg
[2021-06-15 06:12] LABS: Hematocrit 24.5 % (42.0-52.0); Hemoglobin 7.9 g/dl (14.0-18.0); Mean Corpuscular HGB Conc 32.2 g/dl (31.0-36.0); Mean Corpuscular Volume 90.1 fL (80.0-98.0); Mean Platelet Volume 10.7 fL (9.4-12.4); NRBC Pct Auto 0.2 /100WBC (0.0-0.2); Platelet Count 133 X10*3/uL (160-400); Red Blood Count 2.72 X10*6/uL (4.60-5.80); Red Cell Distribution Width 17.1 % (11.0-16.0)
[2021-06-15 06:36] LABS: Band Neutrophils Percent 7 % (3-5); Eosinophils Absolute Manual 0.2 X10*3/uL (0.0-0.4); Eosinophils Percent Manual 1 % (0-4); Lymphocytes Absolute Manual 0.4 X10*3/uL (1.2-4.9); Lymphocytes Percent Manual 2 % (20-40); Metamyelocytes Absolute 0.2 X10*3/uL; Metamyelocytes Percent 1 %; Monocytes Percent Manual 5 % (2-11); Neutrophils Absolute Manual 18.2 X10*3/uL (2.0-8.3); Neutrophils Percent Manual 84 % (45-73)
[2021-06-15 06:37] LABS: B Type Natriuretic Peptide 170 pg/mL (<100)
[2021-06-15 06:38] LABS: Hypochromasia 1+ (5-14) /OIF; Large Platelet PRESENT; Platelet Estimate SLIGHTLY DECREASED (NORMAL); Platelet Morphology Comment NOTED; Polychromasia 1+ (0-2) /OIF; RBC Morphology NOTED
[2021-06-15 06:39] LABS: Alanine Aminotransferase 32 U/L (0-40); Albumin Level 2.4 g/dL (3.5-5.0); Alkaline Phosphatase 75 U/L (39-117); Anion Gap 9 (12-20); Aspartate Amino Transferase 56 U/L (5-37); Bilirubin Total 0.4 mg/dL (0.0-1.0); Blood Urea Nitrogen 54 mg/dL (9-16); Calcium 7.6 mg/dL (8.4-10.2); Carbon Dioxide 22 mmol/L (22-29); Chloride 121 mmol/L (96-108); Creatinine Clr Calc Pharmacy 66.9; Estimated Glomerular Filt Rate 52; Glucose Random 193 mg/dL (60-115); Potassium 4.3 mmol/L (3.3-5.1); Sodium 148 mmol/L (135-145); Total Protein 4.4 g/dL (6.5-8.0)
[2021-06-15 07:16] LABS: Venous Blood Gas Refer to POC result
[2021-06-15] MEDS: Famotidine/PF 20 MG/2 ML VIAL IVPUSH (07:51)
[2021-06-15] MEDS: Chlorhexidine Gluc Oral Rinse 15 ML MOUTHWASH BUCCAL ×3 (07:51→20:52)
[2021-06-15 07:52] LABS: Glucose, Whole Blood 168 mg/dL (60-115)
[2021-06-15] MEDS: 0.9 % Sodium Chloride Flush 3 ML SYRINGE IVFLUSH (07:53)
[2021-06-15] MEDS: Dextrose 5 % 1,000 ML 250 ML IVCONT (07:53)
--- NOTE | 2021-06-15 09:57 | P.PNGI_ITS ---
Subjective Subjective Date of Service: 06/15/21 Interval History: resting, intubated Critical Care Time (minutes): 0 Physical Exam Vital Signs: Vital Signs: Last Vital Signs Temp 99.5 F 06/15/21 09:00 Pulse 95 06/15/21 09:00 Resp 15 06/15/21 09:00 BP 117/34 L 06/15/21 09:00 Pulse Ox 98 06/15/21 09:00 Oxygen Flow Rate 55 06/11/21 10:25 BMI result Body Mass Index 40.0 GI: Other: abdomen is soft and without masses Objective Data Labs CBC & Chem 7: 06/15/21 06:04 06/15/21 06:04 Procedures Date of Service Date of Service: 06/15/21 Progress Note: A&P Assessment and plan (1) GI bleed: Status: Acute Assessment and Plan: drop in hct without melena, continue ppi, supportive care. transfuse, monitor hct. Fall Risk Details Current Medications: Current Medications Chlorhexidine Gluconate (Chlorhexidine Gluc Oral Rinse 15 Ml Mouthwash) 15 ml BUCCAL TID [facility] Last Admin: 06/15/21 07:51 Dose: 15 ml Documented by: Famotidine (Famotidine/Pf 20 Mg/2 Ml Vial) 20 mg IVPUSH DAILY [place] Last Admin: 06/15/21 07:51 Dose: 20 mg Documented by: Norepinephrine Bitartrate (Levophed) 8 mg in 250 mls @ 0 mls/hr IVCONT .Q0M [facility]; Protocol Last Titration: 06/15/21 00:40 Dose: 0 mcg/kg/min, 0 mls/hr Documented by: Propofol (Diprivan) 1,000 mg in 100 mls @ 0 mls/hr IVCONT .Q0M [facility]; Protocol Last Titration: 06/15/21 09:41 Dose: Infused Documented by: Insulin Human Regular (Myxredlin) 100 unit in 100 mls @ 0 mls/hr IVCONT .Q0M [facility] Last Admin: 06/14/21 22:24 Dose: 4 unit/hr, 4 mls/hr Documented by: Doxycycline Hyclate 100 mg/ (Sodium Chloride) 250 mls @ 166.67 mls/hr IV Q12H [facility] Last Infusion: 06/15/21 02:03 Dose: Infused Documented by: Dextrose (D5w) 1,000 mls @ 250 mls/hr IVCONT .Q4H [facility] Stop: 06/15/21 11:29 Last Admin: 06/15/21 07:53 Dose: 250 mls/hr Documented by: Lorazepam (Lorazepam 2 Mg/Ml Vial) 0.5 mg IVPUSH Q2H PRN PRN Reason: Ventilator synchrony Last Admin: 06/13/21 13:35 Dose: 0.5 mg Documented by: Pantoprazole Sodium (Pantoprazole Sodium 40 Mg/10 Ml Vial) 40 mg IVPUSH BID@0630,1630 [facility] Pharmacy Consult (Consult Rx Perform Med Rec) 1 each MISCELLANE ONCE PRN PRN Reason: Consult order Pharmacy Consult (Consult Rx Vancomycin Dosing) 1 each MISCELLANE DAILY PRN PRN Reason: Consult order Sodium Chloride (0.9 % Sodium Chloride Flush 3 Ml Syringe) 3 ml IVFLUSH [facility] Last Admin: 06/15/21 07:53 Dose: 3 ml Documented by: Sodium Chloride (0.9 % Sodium Chloride Flush 3 [facility]l [facility]) [facility] Last Admin: 06/15/21 07:45 Dose: Not Given Documented by: Sodium Chloride (0.9 % Sodium Chloride Flush 3 Ml Syringe) 3 ml IVFLUSH [facility] Last Admin: 06/15/21 07:45 Dose: Not Given Documented by: Time Spent With Patient Time: Total time spent is greater than 50% in coordination of care (as documented) at patient's floor/unit and/or counseling patient: Time with patient: less than 15 minutes Quality Stroke Does the patient have a stroke diagnosis?: No VTE Prior VTE?: No VTE Risk Level:: Medical - moderate - high VTE Device Contraindication: Treatment Not Indicated VTE Drug Contraindication: Treatment Not Indicated
[2021-06-15 10:08] LABS: Glucose, Whole Blood 267 mg/dL (60-115)
[2021-06-15 12:08] LABS: Glucose, Whole Blood 227 mg/dL (60-115)
[2021-06-15 14:23] LABS: Glucose, Whole Blood 200 mg/dL (60-115)
[2021-06-15] MEDS: propofoL 1,000 MG/100 ML VIAL 23 MG IVCONT ×2 (15:20→19:23)
--- NOTE | 2021-06-15 15:48 | P.PNCC_ITS ---
Subjective Subjective Date of Service: 06/15/21 Interval History: 76-year-old morbidly obese male presented with acute hypoxemic respiratory failure from COVID-19 pneumonitis and then developed an acute upper GI bleed found to a bleeding vessel in an ulcer in the duodenum which was cauterized during which time he was intubated and he remained intubated since that time with progressive ARDS and we have attempted sedation holidays and weaning throughout the week always unsuccessful but today he sustained self a little bit longer does awaken with cognitive function and then becomes very agitated as he loses his tidal volume became progressively an uric over the over the day but preserve renal function so we checked the [place] catheter removed it bladder scan found 900 cc and replac ed the [place] catheter which is now draining and the only other issue is is that he has a iatrogenic hyperchloremic metabolic acidosis Critical Care Time (minutes): 45 Physical Exam Vital Signs: Vital Signs: Last Vital Signs Temp 99.3 F 06/15/21 15:00 Pulse 102 H 06/15/21 15:00 Resp 27 H 06/15/21 15:00 BP 130/37 L 06/15/21 15:00 Pulse Ox 97 06/15/21 15:00 Oxygen Flow Rate 30 06/15/21 10:00 BMI result Body Mass Index 40.0 awakens with cognitive function nonfocal neurologically bedside echo with preserved LV function abdomen benign tolerating feedings no organomegaly skin with multiple areas that are open that the patient has a habit of picking and scratching at his skin and this was the probable entry for the methicillin sensitive Staph aureus in his blood still has continued guaiac-positive stool and slow min GI blood loss required 1 more unit of transfusion but he has got a gradually repairing thrombocytopenia and leukopenia is dramatically improving down to 20,000 Objective Data Labs CBC & Chem 7: 06/16/21 05:20 06/16/21 08:29 Labs: Laboratory Results - last 24 hr 06/14/21 06/14/21 06/14/21 15:57 17:47 20:27 WBC RBC Hgb Hct MCV MCH MCHC RDW Plt Count MPV Immature Gran % (Auto) Neut % (Auto) Lymph % (Auto) [place] % (Auto) Eos % (Auto) Baso % (Auto) Lymph # (Auto) [place] # (Auto) Eos # (Auto) Baso # (Auto) Abs Immat Gran (auto) Absolute Neuts (auto) Absolute Nucleated RBC Nucleated RBC % (auto) Neutrophils % (Manual) Band Neutrophils % Lymphocytes % (Manual) Monocytes % (Manual) Eosinophils % (Manual) Metamyelocytes % Abs Neuts (Manual) Lymphocytes # (Manual) Monocytes # (Manual) Eosinophils # (Manual) Metamyelocytes # Platelet Estimate Large Platelets Plt Morphology Comment RBC Morphology Polychromasia Hypochromasia VBG pH VBG pCO2 VBG pO2 VBG HCO3 VBG O2 Saturation VBG Base Excess Sodium Potassium Chloride Carbon Dioxide Anion Gap BUN Creatinine Estim Creat Clear Calc Estimated GFR POC Glucose 169 H 177 H 175 H Random Glucose Calcium Total Bilirubin AST ALT Alkaline Phosphatase B-Natriuretic Peptide Total Protein Albumin Blood Type Antibody Screen Crossmatch 06/14/21 06/14/21 06/15/21 22:30 23:45 01:33 WBC RBC Hgb Hct MCV MCH MCHC RDW Plt Count MPV Immature Gran % (Auto) Neut % (Auto) Lymph % (Auto) [place] % (Auto) Eos % (Auto) Baso % (Auto) Lymph # (Auto) [place] # (Auto) Eos # (Auto) Baso # (Auto) Abs Immat Gran (auto) Absolute Neuts (auto) Absolute Nucleated RBC Nucleated RBC % (auto) Neutrophils % (Manual) Band Neutrophils % Lymphocytes % (Manual) Monocytes % (Manual) Eosinophils % (Manual) Metamyelocytes % Abs Neuts (Manual) Lymphocytes # (Manual) Monocytes # (Manual) Eosinophils # (Manual) Metamyelocytes # Platelet Estimate Large Platelets Plt Morphology Comment RBC Morphology Polychromasia Hypochromasia VBG pH VBG pCO2 VBG pO2 VBG HCO3 VBG O2 Saturation VBG Base Excess Sodium Potassium Chloride Carbon Dioxide Anion Gap BUN Creatinine Estim Creat Clear Calc Estimated GFR POC Glucose 181 H 166 H 158 H Random Glucose Calcium Total Bilirubin AST ALT Alkaline Phosphatase B-Natriuretic Peptide Total Protein Albumin Blood Type Antibody Screen Crossmatch 06/15/21 06/15/21 06/15/21 03:58 06:02 06:04 WBC 20.0 H RBC 2.72 L Hgb 7.9 L Hct 24.5 L MCV 90.1 MCH 29.0 MCHC 32.2 RDW 17.1 H Plt Count 133 L MPV 10.7 Immature Gran % (Auto) Cancelled Neut % (Auto) Cancelled Lymph % (Auto) Cancelled [place] % (Auto) Cancelled Eos % (Auto) Cancelled Baso % (Auto) Cancelled Lymph # (Auto) Cancelled [place] # (Auto) Cancelled Eos # (Auto) Cancelled Baso # (Auto) Cancelled Abs Immat Gran (auto) Cancelled Absolute Neuts (auto) Cancelled Absolute Nucleated RBC 0.030 H Nucleated RBC % (auto) 0.2 Neutrophils % (Manual) 84 H Band Neutrophils % 7 H Lymphocytes % (Manual) 2 L Monocytes % (Manual) 5 Eosinophils % (Manual) 1 Metamyelocytes % 1 Abs Neuts (Manual) 18.2 H Lymphocytes # (Manual) 0.4 L Monocytes # (Manual) 1.0 Eosinophils # (Manual) 0.2 Metamyelocytes # 0.2 Platelet Estimate SLIGHTLY DECREASED Large Platelets PRESENT Plt Morphology Comment NOTED RBC Morphology NOTED Polychromasia 1+ (0-2) Hypochromasia 1+ (5-14) VBG pH VBG pCO2 VBG pO2 VBG HCO3 VBG O2 Saturation VBG Base Excess Sodium Potassium Chloride Carbon Dioxide Anion Gap BUN Creatinine Estim Creat Clear Calc Estimated GFR POC Glucose 177 H 171 H Random Glucose Calcium Total Bilirubin AST ALT Alkaline Phosphatase B-Natriuretic Peptide Total Protein Albumin Blood Type Antibody Screen Crossmatch 06/15/21 06/15/21 06/15/21 06:04 06:04 06:06 WBC RBC Hgb Hct MCV MCH MCHC RDW Plt Count MPV Immature Gran % (Auto) Neut % (Auto) Lymph % (Auto) [place] % (Auto) Eos % (Auto) Baso % (Auto) Lymph # (Auto) [place] # (Auto) Eos # (Auto) Baso # (Auto) Abs Immat Gran (auto) Absolute Neuts (auto) Absolute Nucleated RBC Nucleated RBC % (auto) Neutrophils % (Manual) Band Neutrophils % Lymphocytes % (Manual) Monocytes % (Manual) Eosinophils % (Manual) Metamyelocytes % Abs Neuts (Manual) Lymphocytes # (Manual) Monocytes # (Manual) Eosinophils # (Manual) Metamyelocytes # Platelet Estimate Large Platelets Plt Morphology Comment RBC Morphology Polychromasia Hypochromasia VBG pH 7.47 H VBG pCO2 31 VBG pO2 64 VBG HCO3 22 VBG O2 Saturation 91.0 VBG Base Excess -0.2 Sodium 148 H Potassium 4.3 Chloride 121 H Carbon Dioxide 22 Anion Gap 9 L BUN 54 H Creatinine 1.35 Estim Creat Clear Calc 66.9 Estimated GFR 52 POC Glucose Random Glucose 193 H Calcium 7.6 L Total Bilirubin 0.4 AST 56 H ALT 32 Alkaline Phosphatase 75 B-Natriuretic Peptide 170 H Total Protein 4.4 L Albumin 2.4 L Blood Type Antibody Screen Crossmatch 06/15/21 06/15/21 06/15/21 07:47 08:31 10:04 WBC RBC Hgb Hct MCV MCH MCHC RDW Plt Count MPV Immature Gran % (Auto) Neut % (Auto) Lymph % (Auto) [place] % (Auto) Eos % (Auto) Baso % (Auto) Lymph # (Auto) [place] # (Auto) Eos # (Auto) Baso # (Auto) Abs Immat Gran (auto) Absolute Neuts (auto) Absolute Nucleated RBC Nucleated RBC % (auto) Neutrophils % (Manual) Band Neutrophils % Lymphocytes % (Manual) Monocytes % (Manual) Eosinophils % (Manual) Metamyelocytes % Abs Neuts (Manual) Lymphocytes # (Manual) Monocytes # (Manual) Eosinophils # (Manual) Metamyelocytes # Platelet Estimate Large Platelets Plt Morphology Comment RBC Morphology Polychromasia Hypochromasia VBG pH VBG pCO2 VBG pO2 VBG HCO3 VBG O2 Saturation VBG Base Excess Sodium Potassium Chloride Carbon Dioxide Anion Gap BUN Creatinine Estim Creat Clear Calc Estimated GFR POC Glucose 168 H 267 H Random Glucose Calcium Total Bilirubin AST ALT Alkaline Phosphatase B-Natriuretic Peptide Total Protein Albumin Blood Type O Positive Antibody Screen NEGATIVE Crossmatch See Detail 06/15/21 06/15/21 12:05 14:19 WBC RBC Hgb Hct MCV MCH MCHC RDW Plt Count MPV Immature Gran % (Auto) Neut % (Auto) Lymph % (Auto) [place] % (Auto) Eos % (Auto) Baso % (Auto) Lymph # (Auto) [place] # (Auto) Eos # (Auto) Baso # (Auto) Abs Immat Gran (auto) Absolute Neuts (auto) Absolute Nucleated RBC Nucleated RBC % (auto) Neutrophils % (Manual) Band Neutrophils % Lymphocytes % (Manual) Monocytes % (Manual) Eosinophils % (Manual) Metamyelocytes % Abs Neuts (Manual) Lymphocytes # (Manual) Monocytes # (Manual) Eosinophils # (Manual) Metamyelocytes # Platelet Estimate Large Platelets Plt Morphology Comment RBC Morphology Polychromasia Hypochromasia VBG pH VBG pCO2 VBG pO2 VBG HCO3 VBG O2 Saturation VBG Base Excess Sodium Potassium Chloride Carbon Dioxide Anion Gap BUN Creatinine Estim Creat Clear Calc Estimated GFR POC Glucose 227 H 200 H Random Glucose Calcium Total Bilirubin AST ALT Alkaline Phosphatase B-Natriuretic Peptide Total Protein Albumin Blood Type Antibody Screen Crossmatch Microbiology Microbiology Results: Microbiology 06/09/21 17:15 Blood - Venous Blood Culture - Final Staphylococcus aureus 06/09/21 17:10 Blood - Venous Blood Culture - Final Staphylococcus aureus 06/08/21 23:11 Blood - Venous Blood Culture - Final Staphylococcus aureus 06/08/21 23:11 Blood - Venous Blood Culture - Final Staphylococcus aureus Progress Note: A&P Assessment and plan (1) Acute hypoxemic respiratory failure: Status: Acute (2) GI bleed: Status: Acute (3) Acute non-ST elevation myocardial infarction (NSTEMI): Status: Acute (4) Hypotension: Status: Acute (5) Bacteremia due to Gram-positive bacteria: Status: Acute (6) Atrial fibrillation with rapid ventricular response: Status: Acute (7) Acute renal failure: Status: Acute (8) COVID-19: Status: Acute (9) Elevated prostate specific antigen [PSA]: Status: Acute (10) BPH w urinary obs/LUTS: Status: Acute (11) Thrombocytopenia associated with severe acute respiratory syndrome coronavirus 2 (SARS-CoV-2) infection: Status: Acute (12) Morbid obesity: Status: Acute Assessment and Plan: plan again is recent dating placing back on pressure control for overnight in with which he synchronous continue the doxycycline for the Staph bacteremia treatment obviously successful and the antiviral agents remain on board as well and will treat the CVP as needed Quality Stroke Does the patient have a stroke diagnosis?: No VTE Prior VTE?: No VTE Risk Level:: Medical - moderate - high VTE Device Contraindication: Treatment Not Indicated VTE Drug Contraindication: Treatment Not Indicated
--- NOTE | 2021-06-15 16:15 | MHC.CM.PN ---
Pt on 30% FiO2 ventilatory support: pt will need an echo to assess LVF. D/C plans were initially for a return to home with family support: may need VNA vs STR. CM to follow
[2021-06-15 16:17] LABS: Glucose, Whole Blood 169 mg/dL (60-115)
[2021-06-15] MEDS: Pantoprazole Sodium 40 MG/10 ML VIAL IVPUSH (16:20)
[2021-06-15] MEDS: Sodium Chloride 0.45 % 1,000 ML 100 ML IVCONT (16:42)
[2021-06-15 16:58] LABS: Anion Gap 10 (12-20); Blood Urea Nitrogen 53 mg/dL (9-16); Calcium 7.5 mg/dL (8.4-10.2); Carbon Dioxide 21 mmol/L (22-29); Chloride 118 mmol/L (96-108); Creatinine Clr Calc Pharmacy 66.4; Estimated Glomerular Filt Rate 51; Glucose Random 195 mg/dL (60-115); Potassium 4.2 mmol/L (3.3-5.1); Sodium 145 mmol/L (135-145)
[2021-06-15 18:12] LABS: Glucose, Whole Blood 125 mg/dL (60-115)
[2021-06-15 18:43] LABS: Appearance Urine HAZY; Color Urine YELLOW; Glucose Urine UA NEG (NEG); Leukocyte Esterase Urine NEG (NEG); Nitrite Urine NEG (NEG); Urine Blood TRACE (NEG); Urine Ketones NEG (NEG); Urine Protein TRACE MG/DL (NEG-TRACE)
[2021-06-15 18:52] LABS: WBC Urine 0-2 /HPF (0-4)
[2021-06-15 18:54] LABS: Amorphous Sediment Urine 1+ /LPF; Bacteria Urine TRACE /LPF; Squamous Epithelial Cell Urine TRACE /LPF; Uric Acid Crystals Urine 1+ /LPF
[2021-06-15 19:51] LABS: Glucose, Whole Blood 125 mg/dL (60-115)
[2021-06-15 21:58] LABS: Glucose, Whole Blood 131 mg/dL (60-115)
[2021-06-16] VITALS (32 sets, daily range): BP systolic 102–175; BP diastolic 41–67; PULSE 73–134; RESP 19–34; TEMP 32.5–37.1; O2SAT 91–100; BMI 39.7
[2021-06-16] MEDS: propofoL 1,000 MG/100 ML VIAL 23 MG IVCONT (00:32)
[2021-06-16] MEDS: Insulin Regular/NS 100 UNIT/100 ML PLAST..BAG IVCONT (00:33)
[2021-06-16 00:43] LABS: Glucose, Whole Blood 182 mg/dL (60-115)
[2021-06-16] MEDS: Sodium Chloride 0.45 % 1,000 ML 100 ML IVCONT ×2 (00:47→22:43)
[2021-06-16] MEDS: Doxycycline Hyclate 100 MG in 0.9 % Sodium Chloride 250 ML 166.67 MG IV ×2 (00:47→11:35)
[2021-06-16] MEDS: LORazepam 2 MG/ML VIAL 0.5 MG IVPUSH (00:53)
[2021-06-16] MEDS: HYDROmorphone HCl 1 MG/ML SYRINGE IVPUSH (01:03)
[2021-06-16] MEDS: dilTIAZem HCL 50 MG/10 ML VIAL 10 MG IVPUSH (01:03)
[2021-06-16] MEDS: dilTIAZem HCL 125 MG in 0.9 % Sodium Chloride 100 ML 10 MG IVCONT (01:40)
[2021-06-16 02:19] LABS: Glucose, Whole Blood 187 mg/dL (60-115)
[2021-06-16] MEDS: propofoL 1,000 MG/100 ML VIAL 30.67 MG IVCONT ×7 (03:16→21:06)
[2021-06-16 04:21] LABS: Glucose, Whole Blood 168 mg/dL (60-115)
[2021-06-16 05:22] LABS: VBG Base Excess -4.7 mmol/L; VBG HCO3 19 mmol/L (22-26); VBG pCO2 32 mmHg; VBG pH 7.38 (7.32-7.43); VBG pO2 56 mmHg
[2021-06-16 05:45] LABS: Venous Blood Gas Refer to POC result
[2021-06-16 05:48] LABS: MANUAL DIFF FLAG NO
[2021-06-16] MEDS: Pantoprazole Sodium 40 MG/10 ML VIAL IVPUSH ×2 (05:52→14:03)
[2021-06-16 05:56] LABS: Basophils Percent Auto 0.1 % (0-2); Eosinophils Absolute Auto 0.2 X10*3/uL (0.0-0.4); Eosinophils Percent Auto 1.3 % (0-4); Hematocrit 25.5 % (42.0-52.0); Hemoglobin 8.1 g/dl (14.0-18.0); Imm Gran Abs Auto 0.71 X10*3/uL (0.00-0.03); Lymphocytes Absolute Auto 0.9 X10*3/uL (1.2-4.9); Lymphocytes Percent Auto 5.1 % (20-40); Mean Corpuscular HGB Conc 31.8 g/dl (31.0-36.0); Mean Corpuscular Hemoglobin 29.3 pg (27.0-33.0); Mean Corpuscular Volume 92.4 fL (80.0-98.0); Mean Platelet Volume 11.2 fL (9.4-12.4); Monocytes Absolute Auto 0.3 X10*3/uL (0.1-1.2); Monocytes Percent Auto 1.8 % (2-11); Neutrophils Absolute Auto 15.5 x10*3/uL (2.0-8.3); Neutrophils Percent Auto 87.7 % (45-73); Platelet Count 141 X10*3/uL (160-400); Red Blood Count 2.76 X10*6/uL (4.60-5.80); Red Cell Distribution Width 17.1 % (11.0-16.0); White Blood Count 17.7 X10*3/uL (4.8-10.8)
[2021-06-16 06:24] LABS: Glucose, Whole Blood 171 mg/dL (60-115)
--- NOTE | 2021-06-16 06:37 | PC.NURSE ---
Assumed care of pt at 1900. Pt on pressure control vent settings and tolerating well.Good sedation effect from propofol. Opens eyes occasionally but no tracking or following of commands. Monitor was Sinus but went into afib with RVR at 0100 and received cardizem 10 mg iv bolus. Later a cardizem drip was started and pt converted back to SR, rate 70's. Drip was decreased from 10 mg/hr to 5mg and currently at 2.5 mg/hr. Afebrile. BP stable. Tolerating tube feeds as ordered.
[2021-06-16] MEDS: 0.9 % Sodium Chloride Flush 3 ML SYRINGE IVFLUSH ×2 (07:12→14:03)
[2021-06-16] MEDS: Famotidine/PF 20 MG/2 ML VIAL IVPUSH (08:05)
[2021-06-16] MEDS: Chlorhexidine Gluc Oral Rinse 15 ML MOUTHWASH BUCCAL ×3 (08:05→21:23)
[2021-06-16 08:51] LABS: Glucose, Whole Blood 154 mg/dL (60-115)
[2021-06-16 09:01] LABS: Anion Gap 10 (12-20); Blood Urea Nitrogen 47 mg/dL (9-16); Calcium 7.4 mg/dL (8.4-10.2); Carbon Dioxide 20 mmol/L (22-29); Chloride 114 mmol/L (96-108); Creatinine Clr Calc Pharmacy 79.7; Estimated Glomerular Filt Rate > 60; Glucose Random 177 mg/dL (60-115); Potassium 4.5 mmol/L (3.3-5.1); Sodium 139 mmol/L (135-145)
[2021-06-16] MEDS: Potassium Chloride Packet 20 MEQ PACKET PO (09:17)
[2021-06-16] MEDS: Furosemide 40 MG/4 ML VIAL IVPUSH (09:17)
[2021-06-16] MEDS: Magnesium Sulfate/D5W 1 GM/100 ML PIGGYBACK IV (09:17)
[2021-06-16 10:16] LABS: Glucose, Whole Blood 158 mg/dL (60-115)
[2021-06-16 11:56] LABS: Glucose, Whole Blood 144 mg/dL (60-115)
--- NOTE | 2021-06-16 12:19 | MHC.CLN ---
F/U PT REMAINS INTUBATED AND SEDATED PT CURRENTLY RECEIVING PROMOTE AT MAX GOAL RATE 55ML/HR WITH 300ML Q 4HRS FREE WATER FLUSHES PROVIDE 1320KCALS (2130KCALS WITH SEDATION; 26KCALS/KG BASED ON IBW), 82.5G PROTEIN (1.0G/KG), 2907ML TOTAL WATER FROM FORMULA AND FLUSHES NOTED SERUM NA WNL RECOMMEND DECREASING FREE WATER FLUSHES TO 240ML Q 4HRS TO PROVIDE 2547ML TOTAL WATER FROM FORMULA AND FLUSH (31ML/KG BASED ON IBW) MONITOR TOLERANCE, RESIDUALS AND LYTES
[2021-06-16 14:20] LABS: Glucose, Whole Blood 147 mg/dL (60-115)
[2021-06-16 16:23] LABS: Glucose, Whole Blood 119 mg/dL (60-115)
--- NOTE | 2021-06-16 17:06 | PM.CCPN ---
Subjective Subjective Date of Service: 06/16/21 Interval History: 76-year-old morbidly obese gentleman with acute hypoxemic respiratory failure from COVID-19 pneumonitis and ARDS status post GI blood loss anemia from acute bleed due to an open vessel in the duodenal ulcer S since cauterized with continued slow blood loss on antacid therapy and OG feedings and today on sedation holiday had the most appropriate calm good cognitive function and lasted the longest on his pressure support trial until we dropped him to of 15 of inspiratory support over 5 of PEEP and then is tidal volumes deteriorated and he became tachypneic and since recent dated and comfortable resolving leukocytosis down to 17,000 clearly lost at least 3/4 of a g of hemoglobin over the last day but still hemoglobin 8.1 and will follow and gradually repairing thrombocytopenia Critical Care Time (minutes): 45 Physical Exam Vital Signs: Vital Signs: Last Vital Signs Temp 98.8 F 06/16/21 16:00 Pulse 85 06/16/21 16:00 Resp 19 06/16/21 16:00 BP 134/48 L 06/16/21 16:00 Pulse Ox 97 06/16/21 16:00 Oxygen Flow Rate 30 06/15/21 10:00 BMI result Body Mass Index 39.7 good cognitive function nonfocal neurologically cardiovascular status stable with on bedside echo and he received diuresis for 4 and iatrogenic elevation of his CVP when he was an uric not realizing that the [place] was obstructed no event tissue sounds of his lungs abdomen benign no again a megaly Objective Data Labs CBC & Chem 7: 06/16/21 05:20 06/16/21 08:29 Labs: Laboratory Results - last 24 hr 06/15/21 06/15/21 06/15/21 08:31 17:56 18:07 WBC RBC Hgb Hct MCV MCH MCHC RDW Plt Count MPV Immature Gran % (Auto) Neut % (Auto) Lymph % (Auto) [place] % (Auto) Eos % (Auto) Baso % (Auto) Lymph # (Auto) [place] # (Auto) Eos # (Auto) Baso # (Auto) Abs Immat Gran (auto) Absolute Neuts (auto) Absolute Nucleated RBC Nucleated RBC % (auto) VBG pH VBG pCO2 VBG pO2 VBG HCO3 VBG O2 Saturation VBG Base Excess Sodium Potassium Chloride Carbon Dioxide Anion Gap BUN Creatinine Estim Creat Clear Calc Estimated GFR POC Glucose 125 H Random Glucose Calcium Urine Color YELLOW Urine Appearance HAZY Urine pH 5.0 Ur Specific [place] 1.020 Urine Protein TRACE Urine Glucose (UA) NEG Urine Ketones NEG Urine Blood TRACE Urine Nitrite NEG Ur Leukocyte Esterase NEG Urine RBC 5-9 H Urine WBC 0-2 Ur Squamous Epith Cells TRACE Uric Acid Crystals 1+ Amorphous Sediment 1+ Urine Bacteria TRACE Crossmatch See Detail 06/15/21 06/15/21 06/16/21 19:45 21:53 00:39 WBC RBC Hgb Hct MCV MCH MCHC RDW Plt Count MPV Immature Gran % (Auto) Neut % (Auto) Lymph % (Auto) [place] % (Auto) Eos % (Auto) Baso % (Auto) Lymph # (Auto) [place] # (Auto) Eos # (Auto) Baso # (Auto) Abs Immat Gran (auto) Absolute Neuts (auto) Absolute Nucleated RBC Nucleated RBC % (auto) VBG pH VBG pCO2 VBG pO2 VBG HCO3 VBG O2 Saturation VBG Base Excess Sodium Potassium Chloride Carbon Dioxide Anion Gap BUN Creatinine Estim Creat Clear Calc Estimated GFR POC Glucose 125 H 131 H 182 H Random Glucose Calcium Urine Color Urine Appearance Urine pH Ur Specific [place] Urine Protein Urine Glucose (UA) Urine Ketones Urine Blood Urine Nitrite Ur Leukocyte Esterase Urine RBC Urine WBC Ur Squamous Epith Cells Uric Acid Crystals Amorphous Sediment Urine Bacteria Crossmatch 06/16/21 06/16/21 06/16/21 02:16 04:16 05:15 WBC RBC Hgb Hct MCV MCH MCHC RDW Plt Count MPV Immature Gran % (Auto) Neut % (Auto) Lymph % (Auto) [place] % (Auto) Eos % (Auto) Baso % (Auto) Lymph # (Auto) [place] # (Auto) Eos # (Auto) Baso # (Auto) Abs Immat Gran (auto) Absolute Neuts (auto) Absolute Nucleated RBC Nucleated RBC % (auto) VBG pH 7.38 VBG pCO2 32 VBG pO2 56 VBG HCO3 19 L VBG O2 Saturation 82.0 VBG Base Excess -4.7 Sodium Potassium Chloride Carbon Dioxide Anion Gap BUN Creatinine Estim Creat Clear Calc Estimated GFR POC Glucose 187 H 168 H Random Glucose Calcium Urine Color Urine Appearance Urine pH Ur Specific [place] Urine Protein Urine Glucose (UA) Urine Ketones Urine Blood Urine Nitrite Ur Leukocyte Esterase Urine RBC Urine WBC Ur Squamous Epith Cells Uric Acid Crystals Amorphous Sediment Urine Bacteria Crossmatch 06/16/21 06/16/21 06/16/21 05:20 06:19 08:09 WBC 17.7 H RBC 2.76 L Hgb 8.1 L Hct 25.5 L MCV 92.4 MCH 29.3 MCHC 31.8 RDW 17.1 H Plt Count 141 L MPV 11.2 Immature Gran % (Auto) 4.0 H Neut % (Auto) 87.7 H Lymph % (Auto) 5.1 L [place] % (Auto) 1.8 L Eos % (Auto) 1.3 Baso % (Auto) 0.1 Lymph # (Auto) 0.9 L [place] # (Auto) 0.3 Eos # (Auto) 0.2 Baso # (Auto) 0.0 Abs Immat Gran (auto) 0.71 H Absolute Neuts (auto) 15.5 H Absolute Nucleated RBC 0.000 Nucleated RBC % (auto) 0.0 VBG pH VBG pCO2 VBG pO2 VBG HCO3 VBG O2 Saturation VBG Base Excess Sodium Potassium Chloride Carbon Dioxide Anion Gap BUN Creatinine Estim Creat Clear Calc Estimated GFR POC Glucose 171 H 154 H Random Glucose Calcium Urine Color Urine Appearance Urine pH Ur Specific [place] Urine Protein Urine Glucose (UA) Urine Ketones Urine Blood Urine Nitrite Ur Leukocyte Esterase Urine RBC Urine WBC Ur Squamous Epith Cells Uric Acid Crystals Amorphous Sediment Urine Bacteria Crossmatch 06/16/21 06/16/21 06/16/21 08:29 10:13 11:49 WBC RBC Hgb Hct MCV MCH MCHC RDW Plt Count MPV Immature Gran % (Auto) Neut % (Auto) Lymph % (Auto) [place] % (Auto) Eos % (Auto) Baso % (Auto) Lymph # (Auto) [place] # (Auto) Eos # (Auto) Baso # (Auto) Abs Immat Gran (auto) Absolute Neuts (auto) Absolute Nucleated RBC Nucleated RBC % (auto) VBG pH VBG pCO2 VBG pO2 VBG HCO3 VBG O2 Saturation VBG Base Excess Sodium 139 Potassium 4.5 Chloride 114 H Carbon Dioxide 20 L Anion Gap 10 L BUN 47 H Creatinine 1.13 Estim Creat Clear Calc 79.7 Estimated GFR > 60 POC Glucose 158 H 144 H Random Glucose 177 H Calcium 7.4 L Urine Color Urine Appearance Urine pH Ur Specific [place] Urine Protein Urine Glucose (UA) Urine Ketones Urine Blood Urine Nitrite Ur Leukocyte Esterase Urine RBC Urine WBC Ur Squamous Epith Cells Uric Acid Crystals Amorphous Sediment Urine Bacteria Crossmatch 06/16/21 06/16/21 14:16 16:11 WBC RBC Hgb Hct MCV MCH MCHC RDW Plt Count MPV Immature Gran % (Auto) Neut % (Auto) Lymph % (Auto) [place] % (Auto) Eos % (Auto) Baso % (Auto) Lymph # (Auto) [place] # (Auto) Eos # (Auto) Baso # (Auto) Abs Immat Gran (auto) Absolute Neuts (auto) Absolute Nucleated RBC Nucleated RBC % (auto) VBG pH VBG pCO2 VBG pO2 VBG HCO3 VBG O2 Saturation VBG Base Excess Sodium Potassium Chloride Carbon Dioxide Anion Gap BUN Creatinine Estim Creat Clear Calc Estimated GFR POC Glucose 147 H 119 H Random Glucose Calcium Urine Color Urine Appearance Urine pH Ur Specific [place] Urine Protein Urine Glucose (UA) Urine Ketones Urine Blood Urine Nitrite Ur Leukocyte Esterase Urine RBC Urine WBC Ur Squamous Epith Cells Uric Acid Crystals Amorphous Sediment Urine Bacteria Crossmatch Microbiology Microbiology Results: Microbiology 06/09/21 17:15 Blood - Venous Blood Culture - Final Staphylococcus aureus 06/09/21 17:10 Blood - Venous Blood Culture - Final Staphylococcus aureus 06/08/21 23:11 Blood - Venous Blood Culture - Final Staphylococcus aureus 06/08/21 23:11 Blood - Venous Blood Culture - Final Staphylococcus aureus Progress Note: A&P Assessment and plan (1) Morbid obesity: Status: Acute (2) Thrombocytopenia associated with severe acute respiratory syndrome coronavirus 2 (SARS-CoV-2) infection: Status: Acute (3) Acute hypoxemic respiratory failure: Status: Acute (4) Acute non-ST elevation myocardial infarction (NSTEMI): Status: Acute (5) GI bleed: Status: Acute (6) Hypotension: Status: Acute (7) Bacteremia due to Gram-positive bacteria: Status: Acute (8) Atrial fibrillation with rapid ventricular response: Status: Acute (9) Acute renal failure: Status: Acute (10) COVID-19: Status: Acute (11) Weakness: Status: Acute (12) BPH w urinary obs/LUTS: Status: Acute (13) Elevated prostate specific antigen [PSA]: Status: Acute Assessment and Plan: so she is now recent dated will attempt again removing his sedation in the morning and a pressure support trial and antibiotics were and anti viral so will remain as above and will transfuse as needed follow CVP for possible necessity for diuresis to aid in in weaning from the ventilator Quality Stroke Does the patient have a stroke diagnosis?: No VTE Prior VTE?: No VTE Risk Level:: Medical - moderate - high VTE Device Contraindication: Treatment Not Indicated VTE Drug Contraindication: Treatment Not Indicated
[2021-06-16 18:19] LABS: Glucose, Whole Blood 140 mg/dL (60-115)
[2021-06-16 20:13] LABS: Glucose, Whole Blood 178 mg/dL (60-115)
--- NOTE | 2021-06-16 20:16 | PC.NURSE ---
This RN restarted pt.'s Insulin gtt at 3U/hr at appx. 2015. Insulin gtt was at 5U/hr and turned off at appx. 1600 by previous RN d/t POC being 119, but the Insulin gtt being turned off at 1600 was not documented. Insulin gtt was turned off from appx. 1600 until 2014 when POC recheck was 178, gtt restarted at 3U/hr. Will recheck POC in 2hrs at 2200.
[2021-06-16 22:35] LABS: Glucose, Whole Blood 198 mg/dL (60-115)
[2021-06-17] VITALS (31 sets, daily range): BP systolic 99–183; BP diastolic 36–64; PULSE 86–127; RESP 18–37; TEMP 34.7–37.6; O2SAT 94–100; BMI 40.0
[2021-06-17] MEDS: Doxycycline Hyclate 100 MG in 0.9 % Sodium Chloride 250 ML 166.67 MG IV ×2 (00:04→11:13)
[2021-06-17] MEDS: propofoL 1,000 MG/100 ML VIAL 30.67 MG IVCONT ×8 (00:07→22:12)
[2021-06-17] MEDS: Insulin Regular/NS 100 UNIT/100 ML PLAST..BAG IVCONT ×2 (00:09→17:27)
[2021-06-17 00:26] LABS: Glucose, Whole Blood 227 mg/dL (60-115)
[2021-06-17 02:05] LABS: Glucose, Whole Blood 191 mg/dL (60-115)
[2021-06-17 04:02] LABS: Glucose, Whole Blood 170 mg/dL (60-115)
[2021-06-17 05:23] LABS: VBG HCO3 20 mmol/L (22-26); VBG pCO2 28 mmHg; VBG pH 7.45 (7.32-7.43); VBG pO2 47 mmHg
[2021-06-17 05:42] LABS: MANUAL DIFF FLAG NO
[2021-06-17 05:59] LABS: Basophils Percent Auto 0.1 % (0-2); Eosinophils Absolute Auto 0.3 X10*3/uL (0.0-0.4); Eosinophils Percent Auto 1.5 % (0-4); Hematocrit 25.6 % (42.0-52.0); Hemoglobin 8.4 g/dl (14.0-18.0); Imm Gran Abs Auto 0.44 X10*3/uL (0.00-0.03); Imm Gran Pct Auto 2.3 % (0.0-0.4); Lymphocytes Absolute Auto 0.7 X10*3/uL (1.2-4.9); Lymphocytes Percent Auto 3.6 % (20-40); Mean Corpuscular HGB Conc 32.8 g/dl (31.0-36.0); Mean Corpuscular Hemoglobin 30.1 pg (27.0-33.0); Mean Corpuscular Volume 91.8 fL (80.0-98.0); Mean Platelet Volume 11.1 fL (9.4-12.4); Monocytes Absolute Auto 0.7 X10*3/uL (0.1-1.2); Monocytes Percent Auto 3.5 % (2-11); Neutrophils Absolute Auto 17.3 x10*3/uL (2.0-8.3); Platelet Count 148 X10*3/uL (160-400); Red Blood Count 2.79 X10*6/uL (4.60-5.80); Red Cell Distribution Width 17.1 % (11.0-16.0); White Blood Count 19.5 X10*3/uL (4.8-10.8)
[2021-06-17 06:09] LABS: Alanine Aminotransferase 31 U/L (0-40); Albumin Level 2.2 g/dL (3.5-5.0); Alkaline Phosphatase 79 U/L (39-117); Anion Gap 13 (12-20); Aspartate Amino Transferase 40 U/L (5-37); Bilirubin Total 0.3 mg/dL (0.0-1.0); Blood Urea Nitrogen 42 mg/dL (9-16); Calcium 7.6 mg/dL (8.4-10.2); Carbon Dioxide 19 mmol/L (22-29); Chloride 114 mmol/L (96-108); Creatinine Clr Calc Pharmacy 80.6; Estimated Glomerular Filt Rate > 60; Glucose Random 202 mg/dL (60-115); Sodium 141 mmol/L (135-145); Total Protein 4.5 g/dL (6.5-8.0)
[2021-06-17] MEDS: Pantoprazole Sodium 40 MG/10 ML VIAL IVPUSH ×2 (06:20→15:12)
[2021-06-17 06:33] LABS: Glucose, Whole Blood 195 mg/dL (60-115)
[2021-06-17 07:41] LABS: Venous Blood Gas Refer to POC result
[2021-06-17] MEDS: Chlorhexidine Gluc Oral Rinse 15 ML MOUTHWASH BUCCAL ×3 (08:06→20:39)
[2021-06-17] MEDS: 0.9 % Sodium Chloride Flush 3 ML SYRINGE IVFLUSH ×2 (08:06→15:12)
[2021-06-17] MEDS: Famotidine/PF 20 MG/2 ML VIAL IVPUSH (08:06)
[2021-06-17] MEDS: Sodium Chloride 0.45 % 1,000 ML 100 ML IVCONT ×2 (08:09→17:26)
[2021-06-17 08:20] LABS: Glucose, Whole Blood 193 mg/dL (60-115)
[2021-06-17 10:02] LABS: Glucose, Whole Blood 211 mg/dL (60-115)
[2021-06-17 11:47] LABS: Glucose, Whole Blood 163 mg/dL (60-115)
[2021-06-17 14:07] LABS: Glucose, Whole Blood 157 mg/dL (60-115)
[2021-06-17] MEDS: dilTIAZem HCL 125 MG in 0.9 % Sodium Chloride 100 ML IVCONT (15:12)
[2021-06-17 16:10] LABS: Glucose, Whole Blood 136 mg/dL (60-115)
--- NOTE | 2021-06-17 16:27 | P.PNCC_ITS ---
Subjective Subjective Date of Service: 06/17/21 Interval History: 76-year-old male morbidly obese insulin-dependent type 2 diabetic presented with COVID-19 pneumonitis and hypoxemic respiratory failure but developed an upper GI bleed and underwent emergent cautery of a bleeding vessel in the duodenal ulcer and this was under general anesthesia with intubation but remained intubated because of the hypoxemic respiratory failure and then ultimately / blood cultures all grew methicillin sensitive Staph aureus so he has been treated for a staph bacteremia currently on doxycycline to which it is sensitive in the beginning he was on vancomycin white count that was a 37,000 is now down to 19,000 his hemoglobin is finally stabilized and he has had daily weaning of the sedation and today he did not quite regain his cognitive function and on 15/10 of pressure support his tidal volumes drop in he became tachypneic and upset on previous occasions he did have sabianism of cognitive function but he still remains on with ventilatory insufficiency is acute acute stage III renal failure has since resolved gradually he is also off all pressors be maintaining pressures of about 100/50 mean of 67 comfortable on the ventilator 30% FiO2 and oxygen saturation 98% normal sinus rhythm and he had been a paroxysmal atrial fibrillator but he has been stable on low-dose IV Cardizem Critical Care Time (minutes): 45 Physical Exam Vital Signs: Vital Signs: Last Vital Signs Temp 98.8 F 06/17/21 15:21 Pulse 96 06/17/21 16:00 Resp 30 H 06/17/21 16:00 BP 101/50 L 06/17/21 16:00 Pulse Ox 97 06/17/21 16:00 Oxygen Flow Rate 30 06/17/21 10:00 BMI result Body Mass Index 40.0 awake off propofol for 2 hours but never regained full cognitive function but nonfocal neurologically cardiovascular exam by bedside echo shows preserved systolic reserve of the ventricle no primary valve or pericardial disease abdomen is soft no organomegaly needs tolerating his feedings lungs without adventitious sounds Objective Data Labs CBC & Chem 7: 06/17/21 05:20 06/17/21 05:20 Labs: Laboratory Results - last 24 hr 06/16/21 06/16/21 06/16/21 17:53 20:04 22:22 WBC RBC Hgb Hct MCV MCH MCHC RDW Plt Count MPV Immature Gran % (Auto) Neut % (Auto) Lymph % (Auto) [place] % (Auto) Eos % (Auto) Baso % (Auto) Lymph # (Auto) [place] # (Auto) Eos # (Auto) Baso # (Auto) Abs Immat Gran (auto) Absolute Neuts (auto) Absolute Nucleated RBC Nucleated RBC % (auto) VBG pH VBG pCO2 VBG pO2 VBG HCO3 VBG O2 Saturation VBG Base Excess Sodium Potassium Chloride Carbon Dioxide Anion Gap BUN Creatinine Estim Creat Clear Calc Estimated GFR POC Glucose 140 H 178 H 198 H Random Glucose Calcium Magnesium Total Bilirubin AST ALT Alkaline Phosphatase Total Protein Albumin 06/17/21 06/17/21 06/17/21 00:18 02:00 03:58 WBC RBC Hgb Hct MCV MCH MCHC RDW Plt Count MPV Immature Gran % (Auto) Neut % (Auto) Lymph % (Auto) [place] % (Auto) Eos % (Auto) Baso % (Auto) Lymph # (Auto) [place] # (Auto) Eos # (Auto) Baso # (Auto) Abs Immat Gran (auto) Absolute Neuts (auto) Absolute Nucleated RBC Nucleated RBC % (auto) VBG pH VBG pCO2 VBG pO2 VBG HCO3 VBG O2 Saturation VBG Base Excess Sodium Potassium Chloride Carbon Dioxide Anion Gap BUN Creatinine Estim Creat Clear Calc Estimated GFR POC Glucose 227 H 191 H 170 H Random Glucose Calcium Magnesium Total Bilirubin AST ALT Alkaline Phosphatase Total Protein Albumin 06/17/21 06/17/21 06/17/21 05:17 05:20 05:20 WBC 19.5 H RBC 2.79 L Hgb 8.4 L Hct 25.6 L MCV 91.8 MCH 30.1 MCHC 32.8 RDW 17.1 H Plt Count 148 L MPV 11.1 Immature Gran % (Auto) 2.3 H Neut % (Auto) 89.0 H Lymph % (Auto) 3.[address] [place] % (Auto) 3.5 Eos % (Auto) 1.5 Baso % (Auto) 0.1 Lymph # (Auto) 0.[address] [place] # (Auto) 0.7 Eos # (Auto) 0.3 Baso # (Auto) 0.0 Abs Immat Gran (auto) 0.44 H Absolute Neuts (auto) 17.3 H Absolute Nucleated RBC 0.000 Nucleated RBC % (auto) 0.0 VBG pH 7.45 H VBG pCO2 28 VBG pO2 47 VBG HCO3 20 L VBG O2 Saturation 76.0 VBG Base Excess -3.0 Sodium 141 Potassium 5.0 Chloride 114 H Carbon Dioxide 19 L Anion Gap 13 BUN 42 H Creatinine 1.12 Estim Creat Clear Calc 80.6 Estimated GFR > 60 POC Glucose Random Glucose 202 H Calcium 7.6 L Magnesium 2.0 Total Bilirubin 0.3 AST 40 H ALT 31 Alkaline Phosphatase 79 Total Protein 4.5 L Albumin 2.2 L 06/17/21 06/17/21 06/17/21 06:27 08:11 09:58 WBC RBC Hgb Hct MCV MCH MCHC RDW Plt Count MPV Immature Gran % (Auto) Neut % (Auto) Lymph % (Auto) [place] % (Auto) Eos % (Auto) Baso % (Auto) Lymph # (Auto) [facility] # (Auto) Eos # (Auto) Baso # (Auto) Abs Immat Gran (auto) Absolute Neuts (auto) Absolute Nucleated RBC Nucleated RBC % (auto) VBG pH VBG pCO2 VBG pO2 VBG HCO3 VBG O2 Saturation VBG Base Excess Sodium Potassium Chloride Carbon Dioxide Anion Gap BUN Creatinine Estim Creat Clear Calc Estimated GFR POC Glucose 195 H 193 H 211 H Random Glucose Calcium Magnesium Total Bilirubin AST ALT Alkaline Phosphatase Total Protein Albumin 06/17/21 06/17/21 06/17/21 11:41 14:03 15:58 WBC RBC Hgb Hct MCV MCH MCHC RDW Plt Count MPV Immature Gran % (Auto) Neut % (Auto) Lymph % (Auto) [facility] % (Auto) Eos % (Auto) Baso % (Auto) Lymph # (Auto) [facility] # (Auto) Eos # (Auto) Baso # (Auto) Abs Immat Gran (auto) Absolute Neuts (auto) Absolute Nucleated RBC Nucleated RBC % (auto) VBG pH VBG pCO2 VBG pO2 VBG HCO3 VBG O2 Saturation VBG Base Excess Sodium Potassium Chloride Carbon Dioxide Anion Gap BUN Creatinine Estim Creat Clear Calc Estimated GFR POC Glucose 163 H 157 H 136 H Random Glucose Calcium Magnesium Total Bilirubin AST ALT Alkaline Phosphatase Total Protein Albumin Microbiology Microbiology Results: Microbiology 06/09/21 17:15 Blood - Venous Blood Culture - Final Staphylococcus aureus 06/09/21 17:10 Blood - Venous Blood Culture - Final Staphylococcus aureus 06/08/21 23:11 Blood - Venous Blood Culture - Final Staphylococcus aureus 06/08/21 23:11 Blood - Venous Blood Culture - Final Staphylococcus aureus Progress Note: A&P Assessment and plan (1) Morbid obesity: Status: Acute (2) Thrombocytopenia associated with severe acute respiratory syndrome coronavirus 2 (SARS-CoV-2) infection: Status: Acute (3) Acute hypoxemic respiratory failure: Status: Acute (4) Acute non-ST elevation myocardial infarction (NSTEMI): Status: Acute (5) GI bleed: Status: Acute (6) Hypotension: Status: Acute (7) Bacteremia due to Gram-positive bacteria: Status: Acute (8) Atrial fibrillation with rapid ventricular response: Status: Acute (9) Acute renal failure: Status: Acute (10) COVID-19: Status: Acute (11) Weakness: Status: Acute (12) Nocturia associated with benign prostatic hyperplasia: Status: Acute (13) BPH w urinary obs/LUTS: Status: Acute (14) Elevated prostate specific antigen [PSA]: Status: Acute Assessment and Plan: so the plan now is a keep him on the antibiotics and the maintain is feedings and make yet another attempt at sedation weaning and then appended eventually ventilator weaning Quality Stroke Does the patient have a stroke diagnosis?: No VTE Prior VTE?: No VTE Risk Level:: Medical - moderate - high VTE Device Contraindication: Treatment Not Indicated VTE Drug Contraindication: Treatment Not Indicated
--- NOTE | 2021-06-17 16:34 | PC.NURSE ---
SEDATION OFF AT 0830 PER MD. SEDATION BACK ON AT 1115. HR 120S, TV 100-200S. CHANGED TO AC SETTINGS AC 18/550/5/30% - TOLERATING WELL. BM X 1 - LARGE, TARRY, PASTY. BATHED, Q2HR REPO, FREQUENT ORAL CARE, PREVALON MATTRESS, PILLOWS, WEDGES AND HEELBOS UTILIZED. SEE CHART FOR SKIN PICTURE OBTAIN.
[2021-06-17] MEDS: Furosemide 40 MG/4 ML VIAL IVPUSH (17:26)
[2021-06-17 18:05] LABS: Glucose, Whole Blood 158 mg/dL (60-115)
[2021-06-17 19:56] LABS: Glucose, Whole Blood 187 mg/dL (60-115)
[2021-06-17] MEDS: Albumin Human 25 % 100 ML IV ×2 (22:13→23:10)
[2021-06-17 22:40] LABS: Glucose, Whole Blood 194 mg/dL (60-115)
[2021-06-18] VITALS (33 sets, daily range): BP systolic 89–187; BP diastolic 34–72; PULSE 83–121; RESP 10–39; TEMP 34–37.3; O2SAT 93–100; BMI 41.3
[2021-06-18] MEDS: propofoL 1,000 MG/100 ML VIAL 30.67 MG IVCONT ×6 (00:29→15:44)
[2021-06-18] MEDS: Furosemide 40 MG/4 ML VIAL IVPUSH ×3 (00:29→23:58)
[2021-06-18] MEDS: Doxycycline Hyclate 100 MG in 0.9 % Sodium Chloride 250 ML 166.67 MG IV ×2 (00:29→13:08)
[2021-06-18 00:31] LABS: Glucose, Whole Blood 207 mg/dL (60-115)
[2021-06-18 02:04] LABS: Glucose, Whole Blood 231 mg/dL (60-115)
[2021-06-18 04:16] LABS: Glucose, Whole Blood 217 mg/dL (60-115)
[2021-06-18] MEDS: Pantoprazole Sodium 40 MG/10 ML VIAL IVPUSH ×2 (05:36→16:03)
[2021-06-18 05:50] LABS: MANUAL DIFF FLAG NO
[2021-06-18 05:54] LABS: Venous Blood Gas Refer to POC result
[2021-06-18 06:10] LABS: Glucose, Whole Blood 270 mg/dL (60-115)
[2021-06-18 06:15] LABS: Alanine Aminotransferase 33 U/L (0-40); Albumin Level 2.7 g/dL (3.5-5.0); Alkaline Phosphatase 86 U/L (39-117); Anion Gap 11 (12-20); Aspartate Amino Transferase 44 U/L (5-37); Bilirubin Direct 0.4 mg/dL (0.0-0.5); Bilirubin Total 0.6 mg/dL (0.0-1.0); Blood Urea Nitrogen 38 mg/dL (9-16); Carbon Dioxide 21 mmol/L (22-29); Chloride 108 mmol/L (96-108); Creatinine Clr Calc Pharmacy 76.5; Estimated Glomerular Filt Rate 59; Glucose Random 305 mg/dL (60-115); INTERNATIONAL NORM RATIO 1.2 (0.9-1.1); Magnesium 1.6 mg/dL (1.6-2.6); Phosphorus 4.2 mg/dL (2.7-4.5); Prothrombin Time 13.1 SEC (9.9-13.0); Sodium 135 mmol/L (135-145); Total Protein 4.8 g/dL (6.5-8.0)
[2021-06-18 06:16] LABS: Partial Thromboplastin Time 27.1 SEC (24.1-38.0)
[2021-06-18 06:32] LABS: Basophils Percent Auto 0.1 % (0-2); Eosinophils Absolute Auto 0.2 X10*3/uL (0.0-0.4); Hematocrit 23.8 % (42.0-52.0); Hemoglobin 7.7 g/dl (14.0-18.0); Imm Gran Abs Auto 0.28 X10*3/uL (0.00-0.03); Imm Gran Pct Auto 1.5 % (0.0-0.4); Lymphocytes Absolute Auto 0.6 X10*3/uL (1.2-4.9); Lymphocytes Percent Auto 3.2 % (20-40); Mean Corpuscular HGB Conc 32.4 g/dl (31.0-36.0); Mean Corpuscular Volume 92.6 fL (80.0-98.0); Mean Platelet Volume 11.1 fL (9.4-12.4); Monocytes Absolute Auto 0.8 X10*3/uL (0.1-1.2); Monocytes Percent Auto 4.4 % (2-11); Neutrophils Absolute Auto 16.4 x10*3/uL (2.0-8.3); Neutrophils Percent Auto 89.8 % (45-73); Platelet Count 133 X10*3/uL (160-400); Red Blood Count 2.57 X10*6/uL (4.60-5.80); Red Cell Distribution Width 16.9 % (11.0-16.0); White Blood Count 18.2 X10*3/uL (4.8-10.8)
[2021-06-18] MEDS: Famotidine/PF 20 MG/2 ML VIAL IVPUSH (08:08)
[2021-06-18] MEDS: 0.9 % Sodium Chloride Flush 3 ML SYRINGE IVFLUSH ×2 (08:08→14:25)
[2021-06-18] MEDS: Chlorhexidine Gluc Oral Rinse 15 ML MOUTHWASH BUCCAL ×3 (08:08→20:00)
[2021-06-18 08:28] LABS: Glucose, Whole Blood 254 mg/dL (60-115)
--- NOTE | 2021-06-18 09:13 | PC.NURSE ---
Addendum entered by Yue Rowe RN 06/18/21 18:39: LASIX 40 MG IVP X 1 AND METOLAZONE 2.5 MG X 1 GIVEN AT 0941. ESPINOSA OUTPUT FROM 1000 - 1800 = 2050 ML. SEDATION TURNED OFF AT 1006. PT OPENED EYES, SLOWLY TRACKED. MOVED HANDS, BUT DID NOT FOLLOW COMMANDS. HR AND BP INCREASED. LOW TIDAL VOLUMES 100-200S. PER MD SEDATION TURNED BACK ON AT 1121. UPDATED BY THIS RN X 2 AND FACETIMES WITH PT. Original Note: CVP ZEROED PER MD. CVP 10 - MD BEDSIDE TO CONFIRM.
--- NOTE | 2021-06-18 09:15 | PM.CCPN ---
Subjective Subjective Date of Service: 06/18/21 Interval History: 76 yo with hypoxemic resp failure from covid 19 pneumonia/ARDS and had UGI bleed from duodenal [id number], with continuous slow ooze and Hgb. around 8 had from entry, MSSA bacteremia with resolving temp and WBC had ARF, resolving, with iatrogenic fluid overload and paroxysmal a. fib, with elevated CVP, requiring diuresis Daily sedation holiday, with cognitive fx. and still fails PS wean Critical Care Time (minutes): 45 Physical Exam Vital Signs: Vital Signs: Last Vital Signs Temp 98.8 F 06/17/21 15:21 Pulse 93 06/18/21 09:00 Resp 18 06/18/21 09:00 BP 116/50 L 06/18/21 09:00 Pulse Ox 95 06/18/21 09:00 Oxygen Flow Rate 30 06/17/21 10:00 BMI result Body Mass Index 41.3 sedated/intubated-nonfocal bedside echo with preserved syst. LV fx still tachypneic with diaphragmatic effort abd. soft with no organomegaly Objective Data Labs CBC & Chem 7: 06/21/21 05:20 06/21/21 05:20 Labs: Laboratory Results - last 24 hr 06/17/21 06/17/21 06/17/21 09:58 11:41 14:03 WBC RBC Hgb Hct MCV MCH MCHC RDW Plt Count MPV Immature Gran % (Auto) Neut % (Auto) Lymph % (Auto) [place] % (Auto) Eos % (Auto) Baso % (Auto) Lymph # (Auto) [place] # (Auto) Eos # (Auto) Baso # (Auto) Abs Immat Gran (auto) Absolute Neuts (auto) Absolute Nucleated RBC Nucleated RBC % (auto) PT INR APTT Sodium Potassium Chloride Carbon Dioxide Anion Gap BUN Creatinine Estim Creat Clear Calc Estimated GFR POC Glucose 211 H 163 H 157 H Random Glucose Calcium Phosphorus Magnesium Total Bilirubin Direct Bilirubin AST ALT Alkaline Phosphatase Total Protein Albumin 06/17/21 06/17/21 06/17/21 15:58 17:53 19:47 WBC RBC Hgb Hct MCV MCH MCHC RDW Plt Count MPV Immature Gran % (Auto) Neut % (Auto) Lymph % (Auto) [place] % (Auto) Eos % (Auto) Baso % (Auto) Lymph # (Auto) [place] # (Auto) Eos # (Auto) Baso # (Auto) Abs Immat Gran (auto) Absolute Neuts (auto) Absolute Nucleated RBC Nucleated RBC % (auto) PT INR APTT Sodium Potassium Chloride Carbon Dioxide Anion Gap BUN Creatinine Estim Creat Clear Calc Estimated GFR POC Glucose 136 H 158 H 187 H Random Glucose Calcium Phosphorus Magnesium Total Bilirubin Direct Bilirubin AST ALT Alkaline Phosphatase Total Protein Albumin 06/17/21 06/18/21 06/18/21 22:18 00:15 01:57 WBC RBC Hgb Hct MCV MCH MCHC RDW Plt Count MPV Immature Gran % (Auto) Neut % (Auto) Lymph % (Auto) [place] % (Auto) Eos % (Auto) Baso % (Auto) Lymph # (Auto) [place] # (Auto) Eos # (Auto) Baso # (Auto) Abs Immat Gran (auto) Absolute Neuts (auto) Absolute Nucleated RBC Nucleated RBC % (auto) PT INR APTT Sodium Potassium Chloride Carbon Dioxide Anion Gap BUN Creatinine Estim Creat Clear Calc Estimated GFR POC Glucose 194 H 207 H 231 H Random Glucose Calcium Phosphorus Magnesium Total Bilirubin Direct Bilirubin AST ALT Alkaline Phosphatase Total Protein Albumin 06/18/21 06/18/21 06/18/21 04:12 05:44 05:44 WBC 18.2 H RBC 2.57 L Hgb 7.7 L Hct 23.8 L MCV 92.6 MCH 30.0 MCHC 32.4 RDW 16.9 H Plt Count 133 L MPV 11.1 Immature Gran % (Auto) 1.5 H Neut % (Auto) 89.8 H Lymph % (Auto) 3.2 L [place] % (Auto) 4.4 Eos % (Auto) 1.0 Baso % (Auto) 0.1 Lymph # (Auto) 0.6 L [place] # (Auto) 0.8 Eos # (Auto) 0.2 Baso # (Auto) 0.0 Abs Immat Gran (auto) 0.28 H Absolute Neuts (auto) 16.4 H Absolute Nucleated RBC 0.000 Nucleated RBC % (auto) 0.0 PT 13.1 H INR 1.2 H APTT 27.1 Sodium Potassium Chloride Carbon Dioxide Anion Gap BUN Creatinine Estim Creat Clear Calc Estimated GFR POC Glucose 217 H Random Glucose Calcium Phosphorus Magnesium Total Bilirubin Direct Bilirubin AST ALT Alkaline Phosphatase Total Protein Albumin 06/18/21 06/18/21 06/18/21 05:44 06:05 08:11 WBC RBC Hgb Hct MCV MCH MCHC RDW Plt Count MPV Immature Gran % (Auto) Neut % (Auto) Lymph % (Auto) [place] % (Auto) Eos % (Auto) Baso % (Auto) Lymph # (Auto) [place] # (Auto) Eos # (Auto) Baso # (Auto) Abs Immat Gran (auto) Absolute Neuts (auto) Absolute Nucleated RBC Nucleated RBC % (auto) PT INR APTT Sodium 135 Potassium 5.0 Chloride 108 Carbon Dioxide 21 L Anion Gap 11 L BUN 38 H Creatinine 1.20 Estim Creat Clear Calc 76.5 Estimated GFR 59 POC Glucose 270 H 254 H Random Glucose 305 H D Calcium 8.0 L Phosphorus 4.2 Magnesium 1.6 Total Bilirubin 0.6 Direct Bilirubin 0.4 AST 44 H ALT 33 Alkaline Phosphatase 86 Total Protein 4.8 L Albumin 2.7 L D Microbiology Microbiology Results: Microbiology 06/09/21 17:15 Blood - Venous Blood Culture - Final Staphylococcus aureus 06/09/21 17:10 Blood - Venous Blood Culture - Final Staphylococcus aureus 06/08/21 23:11 Blood - Venous Blood Culture - Final Staphylococcus aureus 06/08/21 23:11 Blood - Venous Blood Culture - Final Staphylococcus aureus Progress Note: A&P Assessment and plan (1) Diabetes: Status: Acute (2) Acute respiratory distress syndrome (ARDS) due to COVID-19 virus: Status: Acute (3) Morbid obesity: Status: Acute (4) Thrombocytopenia associated with severe acute respiratory syndrome coronavirus 2 (SARS-CoV-2) infection: Status: Acute (5) Acute hypoxemic respiratory failure: Status: Acute (6) Acute non-ST elevation myocardial infarction (NSTEMI): Status: Acute (7) GI bleed: Status: Acute (8) Hypotension: Status: Acute (9) Bacteremia due to Gram-positive bacteria: Status: Acute (10) Atrial fibrillation with rapid ventricular response: Status: Acute (11) Acute renal failure: Status: Acute (12) COVID-19: Status: Acute (13) Weakness: Status: Acute (14) Nocturia associated with benign prostatic hyperplasia: Status: Acute (15) BPH w urinary obs/LUTS: Status: Acute (16) Elevated prostate specific antigen [PSA]: Status: Acute Assessment and Plan: return to AC and continue to diurese by the cvp needs CHRIS-maybe before extubation Quality Stroke Does the patient have a stroke diagnosis?: No VTE Prior VTE?: No VTE Risk Level:: Medical - moderate - high VTE Device Contraindication: Treatment Not Indicated VTE Drug Contraindication: Treatment Not Indicated
[2021-06-18] MEDS: metOLazone 2.5 MG TABLET PO (09:39)
[2021-06-18 10:08] LABS: Glucose, Whole Blood 246 mg/dL (60-115)
[2021-06-18] MEDS: Midazolam HCl/PF 2 MG/2 ML VIAL 4 MG IVPUSH (11:43)
[2021-06-18 12:00] LABS: Glucose, Whole Blood 250 mg/dL (60-115)
[2021-06-18 14:29] LABS: Glucose, Whole Blood 192 mg/dL (60-115)
[2021-06-18 16:11] LABS: Glucose, Whole Blood 222 mg/dL (60-115)
[2021-06-18 18:01] LABS: Glucose, Whole Blood 209 mg/dL (60-115)
[2021-06-18] MEDS: dilTIAZem HCL 125 MG in 0.9 % Sodium Chloride 100 ML IVCONT (18:11)
[2021-06-18] MEDS: propofoL 1,000 MG/100 ML VIAL 38.34 MG IVCONT ×3 (18:13→22:10)
[2021-06-18] MEDS: Insulin Regular/NS 100 UNIT/100 ML PLAST..BAG IVCONT (18:14)
[2021-06-18] MEDS: Albumin Human 25 % 100 ML IV ×2 (19:43→22:09)
[2021-06-18 19:57] LABS: Glucose, Whole Blood 190 mg/dL (60-115)
[2021-06-18 22:04] LABS: Glucose, Whole Blood 191 mg/dL (60-115)
[2021-06-19] VITALS (30 sets, daily range): BP systolic 99–162; BP diastolic 37–90; PULSE 80–128; RESP 18–41; TEMP 34.9–37.4; O2SAT 84–98; BMI 41.2
[2021-06-19] MEDS: propofoL 1,000 MG/100 ML VIAL 30.67 MG IVCONT ×3 (00:05→07:36)
[2021-06-19] MEDS: Doxycycline Hyclate 100 MG in 0.9 % Sodium Chloride 250 ML 166.67 MG IV (00:05)
[2021-06-19 00:42] LABS: Glucose, Whole Blood 170 mg/dL (60-115)
[2021-06-19 03:15] LABS: Glucose, Whole Blood 159 mg/dL (60-115)
[2021-06-19 04:12] LABS: Glucose, Whole Blood 207 mg/dL (60-115)
[2021-06-19 05:21] LABS: VBG Base Excess -1.4 mmol/L; VBG HCO3 21 mmol/L (22-26); VBG pCO2 29 mmHg; VBG pH 7.46 (7.32-7.43); VBG pO2 52 mmHg
[2021-06-19 05:29] LABS: Venous Blood Gas Refer to POC result
[2021-06-19 05:37] LABS: MANUAL DIFF FLAG NO
[2021-06-19 05:51] LABS: Basophils Percent Auto 0.1 % (0-2); Eosinophils Absolute Auto 0.2 X10*3/uL (0.0-0.4); Eosinophils Percent Auto 1.3 % (0-4); Hematocrit 22.8 % (42.0-52.0); Hemoglobin 7.4 g/dl (14.0-18.0); Imm Gran Abs Auto 0.24 X10*3/uL (0.00-0.03); Imm Gran Pct Auto 1.3 % (0.0-0.4); Lymphocytes Absolute Auto 0.7 X10*3/uL (1.2-4.9); Lymphocytes Percent Auto 3.6 % (20-40); Mean Corpuscular HGB Conc 32.5 g/dl (31.0-36.0); Mean Corpuscular Hemoglobin 29.4 pg (27.0-33.0); Mean Corpuscular Volume 90.5 fL (80.0-98.0); Mean Platelet Volume 10.9 fL (9.4-12.4); Monocytes Absolute Auto 0.8 X10*3/uL (0.1-1.2); Monocytes Percent Auto 4.4 % (2-11); Neutrophils Absolute Auto 16.5 x10*3/uL (2.0-8.3); Neutrophils Percent Auto 89.3 % (45-73); Platelet Count 130 X10*3/uL (160-400); Red Blood Count 2.52 X10*6/uL (4.60-5.80); Red Cell Distribution Width 16.5 % (11.0-16.0); White Blood Count 18.4 X10*3/uL (4.8-10.8)
[2021-06-19 05:57] LABS: INTERNATIONAL NORM RATIO 1.2 (0.9-1.1); Prothrombin Time 13.1 SEC (9.9-13.0)
[2021-06-19 05:59] LABS: Partial Thromboplastin Time 25.4 SEC (24.1-38.0)
[2021-06-19 06:03] LABS: Alanine Aminotransferase 34 U/L (0-40); Alkaline Phosphatase 90 U/L (39-117); Anion Gap 13 (12-20); Aspartate Amino Transferase 40 U/L (5-37); Bilirubin Direct 0.5 mg/dL (0.0-0.5); Bilirubin Total 0.7 mg/dL (0.0-1.0); Blood Urea Nitrogen 42 mg/dL (9-16); Calcium 8.4 mg/dL (8.4-10.2); Carbon Dioxide 23 mmol/L (22-29); Chloride 105 mmol/L (96-108); Creatinine Clr Calc Pharmacy 73.5; Estimated Glomerular Filt Rate 56; Glucose Random 233 mg/dL (60-115); Lactate Dehydrogenase 330 U/L (118-273); Magnesium 1.5 mg/dL (1.6-2.6); Phosphorus 4.6 mg/dL (2.7-4.5); Potassium 4.5 mmol/L (3.3-5.1); Sodium 136 mmol/L (135-145); Total Protein 5.1 g/dL (6.5-8.0)
[2021-06-19 06:05] LABS: B Type Natriuretic Peptide 679 pg/mL (<100)
[2021-06-19 06:14] LABS: D Dimer High Sensitivity 4021 NG/ML
[2021-06-19 06:27] LABS: Glucose, Whole Blood 225 mg/dL (60-115)
[2021-06-19 07:01] LABS: Ferritin 1738 ng/mL (20-250)
[2021-06-19] MEDS: Chlorhexidine Gluc Oral Rinse 15 ML MOUTHWASH BUCCAL ×3 (07:36→21:01)
[2021-06-19] MEDS: Famotidine/PF 20 MG/2 ML VIAL IVPUSH (07:36)
[2021-06-19] MEDS: 0.9 % Sodium Chloride Flush 3 ML SYRINGE IVFLUSH ×2 (07:37→23:39)
[2021-06-19 08:03] LABS: Glucose, Whole Blood 221 mg/dL (60-115)
[2021-06-19 10:15] LABS: Glucose, Whole Blood 179 mg/dL (60-115)
[2021-06-19] MEDS: Magnesium Sulfate/H2O 2 GM/50 ML PIGGYBACK IV (10:43)
[2021-06-19] MEDS: Furosemide 200 MG in 0.9 % Sodium Chloride 80 ML IVCONT (10:43)
[2021-06-19] MEDS: Albumin Human 25 % 100 ML IV ×3 (10:43→21:56)
[2021-06-19] MEDS: propofoL 1,000 MG/100 ML VIAL 7.67 MG IVCONT (12:00)
[2021-06-19] MEDS: Insulin Regular/NS 100 UNIT/100 ML PLAST..BAG 6 UNIT IVCONT (12:16)
--- NOTE | 2021-06-19 12:20 | MHC.CLN ---
F/U PT REMAINS INTUBATED AND SEDATED RECEIVING PROMOTE AT MAX GOAL RATE 55 ML/HR WITH FREE WATER FLUSHES 240 ML Q 4 HRS. PROVIDES 1320 KCALS (2130 KCALS WITH SEDATION (26.3 KCALS/KG BASED ON IBW), 82.5G PROTEIN (1.0G/KG), 2547 ML TOTAL WATER FROM FORMULA AND FLUSHES (31 ML/KG BASED ON IBW). SKIN: DTI ON RIGHT BUTTOCKS. NO ADDITIONAL PROTEIN ADDED AT THIS TIME DUE TO ROBIN. MONITOR TOLERANCE, RESIDUALS AND LYTES.
--- NOTE | 2021-06-19 13:52 | PM.CCPN ---
Subjective Subjective Date of Service: 06/19/21 Interval History: 76-year-old gentleman with underlying history of hypertension, diabetes, BPH ascites admitted on 06/08/2020 with dyspnea, COVID positive, AFib with RVR, and to GI bleed requiring EGD with epinephrine injection / cauterization of bleeding ulcers on 06/11/2019 intubated for procedure and very after transferred intubated to intensive care unit. Hospital course further complicated by MSSA bacteremia and pulmonary edema. Critical Care Time (minutes): 45 Physical Exam Vital Signs: Vital Signs: Last Vital Signs Temp 99.1 F 06/19/21 13:00 Pulse 102 H 06/19/21 13:00 Resp 32 H 06/19/21 13:00 BP 140/59 H 06/19/21 13:00 Pulse Ox 94 06/19/21 13:00 Oxygen Flow Rate 30 06/19/21 10:00 BMI result Body Mass Index 41.2 Const: General: no acute distress and other ( sedated on the vent, arousable with sedation vacation) Eyes: Sclerae: sclerae normal EOM: EOMs intact bilaterally Neck: Neck: Yes no lymphadenopathy, Yes trachea midline and Yes supple Resp: Auscultation: crackles ( bibasilar) Cardio: Rate: tachycardic Rhythm: regular rhythm Heart sounds: no gallops, no murmurs and no rubs GI: Palpation (GI): Soft to palpation and Other GI palpation findings present ( Nontender) Auscultation: normal bowel sounds Extrem: General: No clubbing, No cyanosis and Yes pedal edema ( 1+ bilateral) Objective Data Labs CBC & Chem 7: 06/19/21 05:16 06/19/21 05:16 Labs: Laboratory Results - last 24 hr 06/18/21 06/18/21 06/18/21 14:24 16:05 17:55 WBC RBC Hgb Hct MCV MCH MCHC RDW Plt Count MPV Immature Gran % (Auto) Neut % (Auto) Lymph % (Auto) [place] % (Auto) Eos % (Auto) Baso % (Auto) Lymph # (Auto) [place] # (Auto) Eos # (Auto) Baso # (Auto) Abs Immat Gran (auto) Absolute Neuts (auto) Absolute Nucleated RBC Nucleated RBC % (auto) PT INR APTT D-Dimer High Sensitivty VBG pH VBG pCO2 VBG pO2 VBG HCO3 VBG O2 Saturation VBG Base Excess Sodium Potassium Chloride Carbon Dioxide Anion Gap BUN Creatinine Estim Creat Clear Calc Estimated GFR POC Glucose 192 H 222 H 209 H Random Glucose Calcium Phosphorus Magnesium Ferritin Total Bilirubin Direct Bilirubin AST ALT Alkaline Phosphatase Lactate Dehydrogenase C-Reactive Protein B-Natriuretic Peptide Total Protein Albumin 06/18/21 06/18/21 06/19/21 19:46 21:59 00:13 WBC RBC Hgb Hct MCV MCH MCHC RDW Plt Count MPV Immature Gran % (Auto) Neut % (Auto) Lymph % (Auto) [place] % (Auto) Eos % (Auto) Baso % (Auto) Lymph # (Auto) [place] # (Auto) Eos # (Auto) Baso # (Auto) Abs Immat Gran (auto) Absolute Neuts (auto) Absolute Nucleated RBC Nucleated RBC % (auto) PT INR APTT D-Dimer High Sensitivty VBG pH VBG pCO2 VBG pO2 VBG HCO3 VBG O2 Saturation VBG Base Excess Sodium Potassium Chloride Carbon Dioxide Anion Gap BUN Creatinine Estim Creat Clear Calc Estimated GFR POC Glucose 190 H 191 H 170 H Random Glucose Calcium Phosphorus Magnesium Ferritin Total Bilirubin Direct Bilirubin AST ALT Alkaline Phosphatase Lactate Dehydrogenase C-Reactive Protein B-Natriuretic Peptide Total Protein Albumin 06/19/21 06/19/21 06/19/21 03:11 04:07 05:14 WBC RBC Hgb Hct MCV MCH MCHC RDW Plt Count MPV Immature Gran % (Auto) Neut % (Auto) Lymph % (Auto) [place] % (Auto) Eos % (Auto) Baso % (Auto) Lymph # (Auto) [place] # (Auto) Eos # (Auto) Baso # (Auto) Abs Immat Gran (auto) Absolute Neuts (auto) Absolute Nucleated RBC Nucleated RBC % (auto) PT INR APTT D-Dimer High Sensitivty VBG pH 7.46 H VBG pCO2 29 VBG pO2 52 VBG HCO3 21 L VBG O2 Saturation 83.0 VBG Base Excess -1.4 Sodium Potassium Chloride Carbon Dioxide Anion Gap BUN Creatinine Estim Creat Clear Calc Estimated GFR POC Glucose 159 H 207 H Random Glucose Calcium Phosphorus Magnesium Ferritin Total Bilirubin Direct Bilirubin AST ALT Alkaline Phosphatase Lactate Dehydrogenase C-Reactive Protein B-Natriuretic Peptide Total Protein Albumin 06/19/21 06/19/21 06/19/21 05:16 05:16 05:16 WBC 18.4 H RBC 2.52 L Hgb 7.4 L Hct 22.8 L MCV 90.5 MCH 29.4 MCHC 32.5 RDW 16.5 H Plt Count 130 L MPV 10.9 Immature Gran % (Auto) 1.3 H Neut % (Auto) 89.3 H Lymph % (Auto) 3.6 L [place] % (Auto) 4.4 Eos % (Auto) 1.3 Baso % (Auto) 0.1 Lymph # (Auto) 0.7 L [place] # (Auto) 0.8 Eos # (Auto) 0.2 Baso # (Auto) 0.0 Abs Immat Gran (auto) 0.24 H Absolute Neuts (auto) 16.5 H Absolute Nucleated RBC 0.000 Nucleated RBC % (auto) 0.0 PT INR APTT D-Dimer High Sensitivty 4021 VBG pH VBG pCO2 VBG pO2 VBG HCO3 VBG O2 Saturation VBG Base Excess Sodium 136 Potassium 4.5 Chloride 105 Carbon Dioxide 23 Anion Gap 13 BUN 42 H Creatinine 1.25 Estim Creat Clear Calc 73.5 Estimated GFR 56 POC Glucose Random Glucose 233 H Calcium 8.4 Phosphorus 4.6 H Magnesium 1.5 L Ferritin Total Bilirubin 0.7 Direct Bilirubin 0.5 AST 40 H ALT 34 Alkaline Phosphatase 90 Lactate Dehydrogenase 330 H C-Reactive Protein 12.10 H B-Natriuretic Peptide Total Protein 5.1 L Albumin 3.0 L 06/19/21 06/19/21 06/19/21 05:16 05:17 05:17 WBC RBC Hgb Hct MCV MCH MCHC RDW Plt Count MPV Immature Gran % (Auto) Neut % (Auto) Lymph % (Auto) [place] % (Auto) Eos % (Auto) Baso % (Auto) Lymph # (Auto) [place] # (Auto) Eos # (Auto) Baso # (Auto) Abs Immat Gran (auto) Absolute Neuts (auto) Absolute Nucleated RBC Nucleated RBC % (auto) PT 13.1 H INR 1.2 H APTT 25.4 D-Dimer High Sensitivty VBG pH VBG pCO2 VBG pO2 VBG HCO3 VBG O2 Saturation VBG Base Excess Sodium Potassium Chloride Carbon Dioxide Anion Gap BUN Creatinine Estim Creat Clear Calc Estimated GFR POC Glucose Random Glucose Calcium Phosphorus Magnesium Ferritin 1738 H Total Bilirubin Direct Bilirubin AST ALT Alkaline Phosphatase Lactate Dehydrogenase C-Reactive Protein B-Natriuretic Peptide 679 H Total Protein Albumin 06/19/21 06/19/21 06/19/21 06:23 07:58 10:11 WBC RBC Hgb Hct MCV MCH MCHC RDW Plt Count MPV Immature Gran % (Auto) Neut % (Auto) Lymph % (Auto) [place] % (Auto) Eos % (Auto) Baso % (Auto) Lymph # (Auto) [place] # (Auto) Eos # (Auto) Baso # (Auto) Abs Immat Gran (auto) Absolute Neuts (auto) Absolute Nucleated RBC Nucleated RBC % (auto) PT INR APTT D-Dimer High Sensitivty VBG pH VBG pCO2 VBG pO2 VBG HCO3 VBG O2 Saturation VBG Base Excess Sodium Potassium Chloride Carbon Dioxide Anion Gap BUN Creatinine Estim Creat Clear Calc Estimated GFR POC Glucose 225 H 221 H 179 H Random Glucose Calcium Phosphorus Magnesium Ferritin Total Bilirubin Direct Bilirubin AST ALT Alkaline Phosphatase Lactate Dehydrogenase C-Reactive Protein B-Natriuretic Peptide Total Protein Albumin Microbiology Microbiology Results: Microbiology 06/09/21 17:15 Blood - Venous Blood Culture - Final Staphylococcus aureus 06/09/21 17:10 Blood - Venous Blood Culture - Final Staphylococcus aureus 06/08/21 23:11 Blood - Venous Blood Culture - Final Staphylococcus aureus 06/08/21 23:11 Blood - Venous Blood Culture - Final Staphylococcus aureus Progress Note: A&P Assessment and plan (1) Morbid obesity: Status: Acute (2) Thrombocytopenia associated with severe acute respiratory syndrome coronavirus 2 (SARS-CoV-2) infection: Status: Acute (3) Acute hypoxemic respiratory failure: Status: Acute (4) GI bleed: Status: Acute (5) Bacteremia due to Gram-positive bacteria: Status: Acute (6) Atrial fibrillation with rapid ventricular response: Status: Acute (7) Acute renal failure: Status: Acute (8) Acute respiratory distress syndrome (ARDS) due to COVID-19 virus: Status: Acute (9) Diabetes: Status: Acute Assessment and Plan: Assessment: 76-year-old gentleman with underlying obesity, hypertension, diabetes mellitus admitted with dyspnea, COVID-19 positive, AFib with RVR, further complicated by upper GI bleed requiring EGD with intervention on actively bleeding ulcers, remained intubated after procedure. Plan: Neuro: No acute issues. Cardiac: acute on chronic diastolic congestive heart failure, improving with diuresis. Pulmonary: Acute hypoxic respiratory failure secondary to COVID-19 ARDS requiring ventilatory support, continue to titrate off as tolerated. Renal: Acute kidney injury, improving. Non oliguric. Continue to monitor renal indices and urine output. Endo: No acute issues. GI: Upper GI bleed status post catheterization of actively bleeding ulcers. GI/ general surgery service care appreciated. No re-bleeding. ID: MSSA bacteremia, on nafcillin. Heme/Onc: No acute issues. Psych: No acute issues. Miscellaneous: No acute issues. Prophylaxis: Intermittent pneumatic compression, famotidine Diet: tube feeds Critical care time spent: 45 minutes Quality Stroke Does the patient have a stroke diagnosis?: No VTE Prior VTE?: No VTE Risk Level:: Medical - moderate - high VTE Device Contraindication: Treatment Not Indicated VTE Drug Contraindication: Treatment Not Indicated
[2021-06-19 14:22] LABS: Glucose, Whole Blood 138 mg/dL (60-115)
[2021-06-19 14:22] LABS: Glucose, Whole Blood 164 mg/dL (60-115)
--- NOTE | 2021-06-19 14:41 | MHC.CM.PN ---
Pt remains intubated in ICU with COVID: D/C plans will depend on pt's ability to vent wean. CM to follow
[2021-06-19] MEDS: Nafcillin Sodium 2 GM in 0.9 % Sodium Chloride 100 ML IV ×2 (15:20→17:19)
--- NOTE | 2021-06-19 15:31 | PC.NURSE ---
1400 pt was tolerating sedation vacation on PSV P supp 5, PEEP 5, FiO2 30%. Pt extubated per RT at bedside, pt had weak cough, able to voice some words. SaO2 on 5L/min 88-92%, placed on highflow nonrebreather 40L/min FiO2 40%.
[2021-06-19 15:34] LABS: Glucose, Whole Blood 135 mg/dL (60-115)
[2021-06-19 17:52] LABS: Glucose, Whole Blood 119 mg/dL (60-115)
[2021-06-19 18:32] LABS: Anion Gap 15 (12-20); Blood Urea Nitrogen 37 mg/dL (9-16); Calcium 8.9 mg/dL (8.4-10.2); Carbon Dioxide 25 mmol/L (22-29); Chloride 102 mmol/L (96-108); Creatinine Clr Calc Pharmacy 81.2; Estimated Glomerular Filt Rate > 60; Glucose Random 111 mg/dL (60-115); Potassium 4.2 mmol/L (3.3-5.1); Sodium 138 mmol/L (135-145)
[2021-06-19 20:15] LABS: Glucose, Whole Blood 187 mg/dL (60-115)
[2021-06-19] MEDS: dilTIAZem HCL 125 MG in 0.9 % Sodium Chloride 100 ML 15 MG IVCONT (21:01)
[2021-06-19 22:19] LABS: Glucose, Whole Blood 203 mg/dL (60-115)
[2021-06-20] VITALS (27 sets, daily range): BP systolic 111–151; BP diastolic 45–129; PULSE 90–136; RESP 16–38; TEMP 36.6–37.7; O2SAT 89–97; BMI 38.7
[2021-06-20] MEDS: Nafcillin Sodium 2 GM in 0.9 % Sodium Chloride 100 ML IV ×7 (00:31→23:23)
[2021-06-20 02:03] LABS: Glucose, Whole Blood 236 mg/dL (60-115)
[2021-06-20] MEDS: dilTIAZem HCL 125 MG in 0.9 % Sodium Chloride 100 ML 15 MG IVCONT ×3 (02:12→20:43)
[2021-06-20] MEDS: Albumin Human 25 % 100 ML IV (02:27)
[2021-06-20] MEDS: Insulin Lispro 100 UNIT/ML 3 ML VIAL SUBCUT ×5 (02:29→23:23)
[2021-06-20 05:44] LABS: Basophils Percent Auto 0.1 % (0-2); Eosinophils Percent Auto 0.2 % (0-4); Hematocrit 24.4 % (42.0-52.0); Imm Gran Abs Auto 0.23 X10*3/uL (0.00-0.03); Lymphocytes Absolute Auto 0.6 X10*3/uL (1.2-4.9); Lymphocytes Percent Auto 2.5 % (20-40); MANUAL DIFF FLAG SCAN; Mean Corpuscular HGB Conc 32.8 g/dl (31.0-36.0); Mean Corpuscular Hemoglobin 29.4 pg (27.0-33.0); Mean Corpuscular Volume 89.7 fL (80.0-98.0); Mean Platelet Volume 10.7 fL (9.4-12.4); Neutrophils Absolute Auto 22.2 x10*3/uL (2.0-8.3); Neutrophils Percent Auto 92.2 % (45-73); Platelet Count 141 X10*3/uL (160-400); Red Blood Count 2.72 X10*6/uL (4.60-5.80); Red Cell Distribution Width 15.9 % (11.0-16.0); SCAN SMEAR FLAG 1; White Blood Count 24.1 X10*3/uL (4.8-10.8)
[2021-06-20 05:47] LABS: Venous Blood Gas Refer to POC result
[2021-06-20 05:48] LABS: VBG Base Excess 6.4 mmol/L; VBG HCO3 29 mmol/L (22-26); VBG pCO2 38 mmHg; VBG pO2 49 mmHg
[2021-06-20 06:04] LABS: Albumin Level 3.8 g/dL (3.5-5.0); Anion Gap 17 (12-20); Blood Urea Nitrogen 38 mg/dL (9-16); Calcium 8.9 mg/dL (8.4-10.2); Carbon Dioxide 26 mmol/L (22-29); Chloride 101 mmol/L (96-108); Creatinine Clr Calc Pharmacy 67.2; Estimated Glomerular Filt Rate 53; Glucose Random 207 mg/dL (60-115); Magnesium 1.7 mg/dL (1.6-2.6); Potassium 3.8 mmol/L (3.3-5.1); Sodium 140 mmol/L (135-145)
[2021-06-20 06:08] LABS: SLIDE REVIEW VERIFIED
[2021-06-20] MEDS: 0.9 % Sodium Chloride Flush 3 ML SYRINGE IVFLUSH ×2 (07:57→16:45)
[2021-06-20] MEDS: dilTIAZem HCL 50 MG/10 ML VIAL 10 MG IVPUSH (10:18)
[2021-06-20] MEDS: Famotidine/PF 20 MG/2 ML VIAL IVPUSH (10:19)
[2021-06-20] MEDS: Finasteride 5 MG TABLET PO (10:19)
[2021-06-20] MEDS: Metoprolol Tartrate 25 MG TABLET 75 MG PO (11:15)
[2021-06-20 11:57] LABS: Glucose, Whole Blood 211 mg/dL (60-115)
--- NOTE | 2021-06-20 14:27 | PM.CCPN ---
Subjective Subjective Date of Service: 06/20/21 Interval History: 76-year-old gentleman with underlying history of hypertension, diabetes, BPH ascites admitted on 06/08/2020 with dyspnea, COVID positive, AFib with RVR, and to GI bleed requiring EGD with epinephrine injection / cauterization of bleeding ulcers on 06/11/2019 intubated for procedure and very after transferred intubated to intensive care unit. Hospital course further complicated by MSSA bacteremia and pulmonary edema. Extubated on 06/19/2021. Overnight with AFib with RVR, now controlled on Cardizem drip, and restarted on p.o. beta-jose. Critical Care Time (minutes): 0 Physical Exam Vital Signs: Vital Signs: Last Vital Signs Temp 97.9 F 06/20/21 10:00 Pulse 100 06/20/21 14:00 Resp 35 H 06/20/21 14:00 BP 129/55 L 06/20/21 14:00 Pulse Ox 91 L 06/20/21 14:00 Oxygen Flow Rate 50 06/20/21 10:00 BMI result Body Mass Index 38.7 Const: General: no acute distress, alert and awake Nutritional Appearance: obese Eyes: Sclerae: sclerae normal EOM: EOMs intact bilaterally Neck: Neck: Yes no lymphadenopathy, Yes trachea midline and Yes supple Resp: Effort & Inspection: normal respiratory effort and no respiratory distress Auscultation: crackles ( Bibasilar) Cardio: Rate: regular rate Rhythm: regular rhythm Heart sounds: no gallops, no murmurs and no rubs GI: Palpation (GI): Soft to palpation and Other GI palpation findings present ( Nontender) Auscultation: normal bowel sounds Extrem: General: Yes no pedal edema, No clubbing and No cyanosis Objective Data Labs CBC & Chem 7: 06/20/21 05:35 06/20/21 05:35 Labs: Laboratory Results - last 24 hr 06/19/21 06/19/21 06/19/21 15:25 17:26 17:40 WBC RBC Hgb Hct MCV MCH MCHC RDW Plt Count MPV Immature Gran % (Auto) Neut % (Auto) Lymph % (Auto) Thomas % (Auto) Eos % (Auto) Baso % (Auto) Lymph # (Auto) Thomas # (Auto) Eos # (Auto) Baso # (Auto) Abs Immat Gran (auto) Absolute Neuts (auto) Absolute Nucleated RBC Nucleated RBC % (auto) Smear Tech's Comments VBG pH VBG pCO2 VBG pO2 VBG HCO3 VBG O2 Saturation VBG Base Excess Sodium 138 Potassium 4.2 Chloride 102 Carbon Dioxide 25 Anion Gap 15 BUN 37 H Creatinine 1.13 Estim Creat Clear Calc 81.2 Estimated GFR > 60 POC Glucose 135 H 119 H Random Glucose 111 D Calcium 8.9 Phosphorus Magnesium Albumin 06/19/21 06/19/21 06/20/21 20:11 22:03 01:59 WBC RBC Hgb Hct MCV MCH MCHC RDW Plt Count MPV Immature Gran % (Auto) Neut % (Auto) Lymph % (Auto) Thomas % (Auto) Eos % (Auto) Baso % (Auto) Lymph # (Auto) Thomas # (Auto) Eos # (Auto) Baso # (Auto) Abs Immat Gran (auto) Absolute Neuts (auto) Absolute Nucleated RBC Nucleated RBC % (auto) Smear Tech's Comments VBG pH VBG pCO2 VBG pO2 VBG HCO3 VBG O2 Saturation VBG Base Excess Sodium Potassium Chloride Carbon Dioxide Anion Gap BUN Creatinine Estim Creat Clear Calc Estimated GFR POC Glucose 187 H 203 H 236 H Random Glucose Calcium Phosphorus Magnesium Albumin 06/20/21 06/20/21 06/20/21 05:35 05:35 05:39 WBC 24.1 H RBC 2.72 L Hgb 8.0 L Hct 24.4 L MCV 89.7 MCH 29.4 MCHC 32.8 RDW 15.9 Plt Count 141 L MPV 10.7 Immature Gran % (Auto) 1.0 H Neut % (Auto) 92.2 H Lymph % (Auto) 2.5 L Thomas % (Auto) 4.0 Eos % (Auto) 0.2 Baso % (Auto) 0.1 Lymph # (Auto) 0.6 L Thomas # (Auto) 1.0 Eos # (Auto) 0.0 Baso # (Auto) 0.0 Abs Immat Gran (auto) 0.23 H Absolute Neuts (auto) 22.2 H Absolute Nucleated RBC 0.000 Nucleated RBC % (auto) 0.0 Smear Tech's Comments VERIFIED VBG pH 7.50 H VBG pCO2 38 VBG pO2 49 VBG HCO3 29 H VBG O2 Saturation 78.0 VBG Base Excess 6.4 Sodium 140 Potassium 3.8 Chloride 101 Carbon Dioxide 26 Anion Gap 17 BUN 38 H Creatinine 1.32 Estim Creat Clear Calc 67.2 Estimated GFR 53 POC Glucose Random Glucose 207 H D Calcium 8.9 Phosphorus 5.0 H Magnesium 1.7 Albumin 3.8 D 06/20/21 11:52 WBC RBC Hgb Hct MCV MCH MCHC RDW Plt Count MPV Immature Gran % (Auto) Neut % (Auto) Lymph % (Auto) Thomas % (Auto) Eos % (Auto) Baso % (Auto) Lymph # (Auto) Thomas # (Auto) Eos # (Auto) Baso # (Auto) Abs Immat Gran (auto) Absolute Neuts (auto) Absolute Nucleated RBC Nucleated RBC % (auto) Smear Tech's Comments VBG pH VBG pCO2 VBG pO2 VBG HCO3 VBG O2 Saturation VBG Base Excess Sodium Potassium Chloride Carbon Dioxide Anion Gap BUN Creatinine Estim Creat Clear Calc Estimated GFR POC Glucose 211 H Random Glucose Calcium Phosphorus Magnesium Albumin Microbiology Microbiology Results: Microbiology 06/09/21 17:15 Blood - Venous Blood Culture - Final Staphylococcus aureus 06/09/21 17:10 Blood - Venous Blood Culture - Final Staphylococcus aureus 06/08/21 23:11 Blood - Venous Blood Culture - Final Staphylococcus aureus 06/08/21 23:11 Blood - Venous Blood Culture - Final Staphylococcus aureus Progress Note: A&P Assessment and plan (1) Diabetes: Status: Acute (2) Acute respiratory distress syndrome (ARDS) due to COVID-19 virus: Status: Acute (3) Morbid obesity: Status: Acute (4) Acute hypoxemic respiratory failure: Status: Acute (5) GI bleed: Status: Acute (6) Bacteremia due to Gram-positive bacteria: Status: Acute (7) Atrial fibrillation with rapid ventricular response: Status: Acute (8) Acute renal failure: Status: Acute (9) COVID-19: Status: Acute (10) BPH w urinary obs/LUTS: Status: Acute Assessment and Plan: Assessment: 76-year-old gentleman with underlying obesity, hypertension, diabetes mellitus admitted with dyspnea, COVID-19 positive, AFib with RVR, further complicated by upper GI bleed requiring EGD with intervention on actively bleeding ulcers, remained intubated after procedure. Plan: Neuro: No acute issues. Cardiac: Acute on chronic diastolic congestive heart failure, improving with diuresis. Pulmonary: Acute hypoxic respiratory failure secondary to COVID-19 ARDS requiring ventilatory support, extubated on 06/19/2021. Continue to titrate off supplemental oxygen as tolerated.. Renal: Acute kidney injury, improving. Non oliguric. Continue to monitor renal indices and urine output. Endo: No acute issues. GI: Upper GI bleed status post cautherization of actively bleeding ulcers. GI/ general surgery service care appreciated. No re-bleeding. ID: MSSA bacteremia, on nafcillin. Heme/Onc: No acute issues. Psych: No acute issues. Miscellaneous: No acute issues. Prophylaxis: Intermittent pneumatic compression, famotidine Diet: full liquid Quality Stroke Does the patient have a stroke diagnosis?: No VTE Prior VTE?: No VTE Risk Level:: Medical - moderate - high VTE Device Contraindication: Treatment Not Indicated VTE Drug Contraindication: Treatment Not Indicated
--- NOTE | 2021-06-20 15:34 | MHC.CM.PN ---
Pt extubated and is on high flow O2. Tired and not participatory in CM discussion. CM to reapproach on 06/21 for review of d/c needs/plans and completion of HCP. Will also call pt's spouse to review same.
[2021-06-20 17:52] LABS: Glucose, Whole Blood 220 mg/dL (60-115)
[2021-06-20 23:09] LABS: Glucose, Whole Blood 172 mg/dL (60-115)
[2021-06-21] VITALS (14 sets, daily range): BP systolic 110–165; BP diastolic 43–75; PULSE 83–146; RESP 19–36; TEMP 36.1–37.1; O2SAT 91–95
[2021-06-21] MEDS: dilTIAZem HCL 125 MG in 0.9 % Sodium Chloride 100 ML 15 MG IVCONT ×2 (04:20→13:54)
[2021-06-21] MEDS: Nafcillin Sodium 2 GM in 0.9 % Sodium Chloride 100 ML IV ×4 (04:21→19:57)
[2021-06-21 05:33] LABS: MANUAL DIFF FLAG NO
[2021-06-21 05:42] LABS: VBG Base Excess 6.5 mmol/L; VBG HCO3 29 mmol/L (22-26); VBG pCO2 35 mmHg; VBG pH 7.52 (7.32-7.43); VBG pO2 40 mmHg
[2021-06-21 05:44] LABS: Basophils Percent Auto 0.2 % (0-2); Eosinophils Absolute Auto 0.1 X10*3/uL (0.0-0.4); Eosinophils Percent Auto 0.7 % (0-4); Hematocrit 23.8 % (42.0-52.0); Hemoglobin 7.7 g/dl (14.0-18.0); Imm Gran Abs Auto 0.12 X10*3/uL (0.00-0.03); Imm Gran Pct Auto 0.7 % (0.0-0.4); Lymphocytes Absolute Auto 0.6 X10*3/uL (1.2-4.9); Lymphocytes Percent Auto 3.5 % (20-40); Mean Corpuscular HGB Conc 32.4 g/dl (31.0-36.0); Mean Corpuscular Hemoglobin 29.4 pg (27.0-33.0); Mean Corpuscular Volume 90.8 fL (80.0-98.0); Mean Platelet Volume 11.2 fL (9.4-12.4); Monocytes Absolute Auto 0.9 X10*3/uL (0.1-1.2); Monocytes Percent Auto 5.2 % (2-11); Neutrophils Absolute Auto 15.5 x10*3/uL (2.0-8.3); Neutrophils Percent Auto 89.7 % (45-73); Platelet Count 159 X10*3/uL (160-400); Red Blood Count 2.62 X10*6/uL (4.60-5.80); Red Cell Distribution Width 16.1 % (11.0-16.0); White Blood Count 17.2 X10*3/uL (4.8-10.8)
[2021-06-21 05:47] LABS: Venous Blood Gas Refer to POC result
[2021-06-21 05:55] LABS: Glucose, Whole Blood 213 mg/dL (60-115)
[2021-06-21 05:56] LABS: Albumin Level 3.3 g/dL (3.5-5.0); Anion Gap 18 (12-20); Blood Urea Nitrogen 56 mg/dL (9-16); Calcium 8.8 mg/dL (8.4-10.2); Carbon Dioxide 25 mmol/L (22-29); Chloride 104 mmol/L (96-108); Creatinine Clr Calc Pharmacy 54.1; Estimated Glomerular Filt Rate 41; Glucose Random 232 mg/dL (60-115); Phosphorus 5.5 mg/dL (2.7-4.5); Potassium 3.4 mmol/L (3.3-5.1); Sodium 144 mmol/L (135-145)
[2021-06-21] MEDS: Insulin Lispro 100 UNIT/ML 3 ML VIAL SUBCUT ×4 (06:01→20:25)
[2021-06-21 08:23] LABS: B Type Natriuretic Peptide 1768 pg/mL (<100)
[2021-06-21 08:32] LABS: C Reactive Protein 20.77 mg/dL (< or = 0.50)
[2021-06-21 08:45] LABS: Estimated Average Glucose 146 mg/dL; Hemoglobin A1c % 6.7 %
[2021-06-21] MEDS: 0.9 % Sodium Chloride Flush 3 ML SYRINGE IVFLUSH ×2 (08:47→13:35)
[2021-06-21] MEDS: Metoprolol Tartrate 25 MG TABLET 75 MG PO (08:51)
[2021-06-21] MEDS: Finasteride 5 MG TABLET PO (08:52)
--- NOTE | 2021-06-21 11:14 | MHC.CLN ---
F/U PT WITH INCREASED NUTRITION RISK R/T PRESSURE INJURY DIET RX: F/L-APPROPRIATE NO PO INTAKE RECORDED RECOMMEND ADDING ENSURE TID TO INCREASE KCALS AND PROMOTE WOUND HEALING SUPP TO PROVIDE 1050KCALS, 60G PROTEIN MONITOR PO INTAKE CLOSELY
[2021-06-21 11:48] LABS: Glucose, Whole Blood 330 mg/dL (60-115)
--- NOTE | 2021-06-21 12:28 | MHC.CM.PN ---
Pt on high flow n/c after extubation: PT eval recommending STR: met with pt: HCP completed: pt would like to return to home but understands he needs continued care. Message left with spouse, Fiorella requesting a call back to discuss d/c plans. [facility] payor based referrals placed: pt is considered COVID recovered (+ on 06/08 - fully vaxed with booster) Will await callback from Fiorella and acceptance from [facility] referrals. Barriers may be his COVID hx, high O2 needs, facility staffing/COVID beds and payor authorization.
--- NOTE | 2021-06-21 16:14 | HO.PM.IMPN ---
Subjective Subjective Date of Service: 06/21/21 Interval History: extubated 06/19 stepped down to IMC status 06/20 AF/RVR this am but converted to NSR on high flow but only 40% fiO2, 40 Lpm tolerating full liquid diet Review of Systems Review of Systems: Yes all other systems are reviewed and are negative Physical Exam Vital Signs: Vital Signs: Last Vital Signs Temp 97.2 F 06/21/21 08:00 Pulse 86 06/21/21 15:23 Resp 36 H 06/21/21 15:23 BP 122/55 L 06/21/21 15:23 Pulse Ox 95 06/21/21 15:23 Oxygen Flow Rate 50 06/20/21 10:00 BMI result Body Mass Index 38.7 Gen: in no acute distress HEENT: sclera anicteric, moist mucus membranes Neck: supple, LIJ CVC Lungs: diminished bilateral bases Heart: regular rate and rhythm, no murmurs Abd: soft, non-tender, non-distended Ext: no edema Skin: warm/well-perfused Neuro: alert and oriented x3, no focal findings Psych: appropriate affect Objective Data Active Medications Finasteride (Finasteride 5 Mg Tablet) 5 mg PO DAILY [facility] Last Admin: 06/21/21 08:52 Dose: 5 mg Documented by: BRANDON Nafcillin Sodium 2 gm/ Sodium (Chloride) 100 mls @ 200 mls/hr IV Q4H [facility] Last Infusion: 06/21/21 14:21 Dose: 0 mls/hr Documented by: BRANDON Diltiazem HCl 125 mg/ Sodium (Chloride) 125 mls @ 0 mls/hr IVCONT .Q0M [facility]; Protocol Last Admin: 06/21/21 13:54 Dose: 15 mg/hr, 15 mls/hr Documented by: BRANDON Insulin Human Lispro (Insulin Lispro 100 Unit/Ml 3 Ml Vial) 0 unit SUBCUT QIDACHS [facility]; Protocol Last Admin: 06/21/21 12:43 Dose: 10 unit Documented by: BRANDON Metoprolol Tartrate (Metoprolol Tartrate 100 Mg Tablet) 100 mg PO BID [facility]; Protocol Sodium Chloride (0.9 % Sodium Chloride Flush 3 Ml Syringe) 3 ml IVFLUSH QSHIFT [facility] Last Admin: 06/21/21 13:35 Dose: 3 ml Documented by: BRANDON Labs CBC & Chem 7: 06/21/21 05:20 06/21/21 05:20 Labs: Laboratory Results - last 24 hr 06/20/21 06/20/21 06/20/21 05:35 17:48 23:00 MCV MCH MCHC RDW Plt Count MPV Immature Gran % (Auto) Neut % (Auto) Lymph % (Auto) [place] % (Auto) Eos % (Auto) Baso % (Auto) Lymph # (Auto) [place] # (Auto) Eos # (Auto) Baso # (Auto) Abs Immat Gran (auto) Absolute Neuts (auto) Absolute Nucleated RBC Nucleated RBC % (auto) VBG pH VBG pCO2 VBG pO2 VBG HCO3 VBG O2 Saturation VBG Base Excess Anion Gap Estim Creat Clear Calc Estimated GFR POC Glucose 220 H 172 H Random Glucose Estimat Average Glucose 146 Hemoglobin A1c % 6.7 Calcium Phosphorus Magnesium C-Reactive Protein B-Natriuretic Peptide Albumin 06/21/21 06/21/21 06/21/21 05:20 05:20 05:20 MCV 90.8 MCH 29.4 MCHC 32.4 RDW 16.1 H Plt Count 159 L MPV 11.2 Immature Gran % (Auto) 0.7 H Neut % (Auto) 89.7 H Lymph % (Auto) 3.5 L [place] % (Auto) 5.2 Eos % (Auto) 0.7 Baso % (Auto) 0.2 Lymph # (Auto) 0.6 L [place] # (Auto) 0.9 Eos # (Auto) 0.1 Baso # (Auto) 0.0 Abs Immat Gran (auto) 0.12 H Absolute Neuts (auto) 15.5 H Absolute Nucleated RBC 0.000 Nucleated RBC % (auto) 0.0 VBG pH VBG pCO2 VBG pO2 VBG HCO3 VBG O2 Saturation VBG Base Excess Anion Gap 18 Estim Creat Clear Calc 54.1 Estimated GFR 41 POC Glucose Random Glucose 232 H Estimat Average Glucose Hemoglobin A1c % Calcium 8.8 Phosphorus 5.5 H Magnesium 2.0 C-Reactive Protein 20.77 H B-Natriuretic Peptide 1768 H Albumin 3.3 L 06/21/21 06/21/21 06/21/21 05:36 05:46 11:43 MCV MCH MCHC RDW Plt Count MPV Immature Gran % (Auto) Neut % (Auto) Lymph % (Auto) [place] % (Auto) Eos % (Auto) Baso % (Auto) Lymph # (Auto) [place] # (Auto) Eos # (Auto) Baso # (Auto) Abs Immat Gran (auto) Absolute Neuts (auto) Absolute Nucleated RBC Nucleated RBC % (auto) VBG pH 7.52 H VBG pCO2 35 VBG pO2 40 VBG HCO3 29 H VBG O2 Saturation 65.0 VBG Base Excess 6.5 Anion Gap Estim Creat Clear Calc Estimated GFR POC Glucose 213 H 330 H Random Glucose Estimat Average Glucose Hemoglobin A1c % Calcium Phosphorus Magnesium C-Reactive Protein B-Natriuretic Peptide Albumin Microbiology Microbiology Results: Microbiology 06/19/21 14:54 Blood Culture - Preliminary Blood - Venous No growth after 24 hours. 06/19/21 14:55 Blood Culture - Preliminary Blood - Venous No growth after 24 hours. Assessment and Plan (1) Acute respiratory distress syndrome (ARDS) due to COVID-19 virus: Status: Acute (2) Acute hypoxemic respiratory failure: Status: Acute (3) GI bleed: Status: Acute (4) Hypotension: Status: Acute (5) Bacteremia due to Gram-positive bacteria: Status: Acute (6) Atrial fibrillation with rapid ventricular response: Status: Acute Assessment and Plan: hospital d#14 76yo M with HTN, HLD, DM2, BPH, obesity admitted with breakthrough Covid-19 infection, AF/RVR, MSSA bacteremia developed hemorrhagic shock from large GI bleed and transferred to ICU EGD 06/[address] Mae under GETA: multiple duodenal ulcers, active bleeding from a visible vessel in a 15x20 mm ulcer, bleeding controlled with 3ml epinephrine and gold probe cautery remained intubated after EGD, required norepinephrine and 2u PRBCs extubated 06/19/20, stepped down to IMC 06/20 # AF/RVR - continue metoprolol tartrate and wean off diltiazem gtt - discuss with GI if/when safe to start anticoagulation for CVA prevention # MSSA bacteremia, 4/ BCx from 06/08-06/09 - unclear source. repeat BCx from 06/19/21 no growth to date. if negative tomorrow, place PICC and pull CVC. continue IV nafcillin. ID consult re: duration. no vegetations on TTE 06/12/21 # hemorrhagic shock and anemia due to GI blood loss from duodenal ulcer - continue PPI - full liquid diet, discuss advancing with GI # Covid-19 pneumonia # acute hypoxic respiratory failure # ARDS - not given steroids due to duodenal ulcer - wean O2 as tolerated # pulmonary edema # acute/chronic HFpEF - likely iatrogenic, improved with diuresis- hold for now # ROBIN - likely ischemic ATN vs excess diuresis, monitor SCr + avoid nephrotoxins # thrombocytopenia - resolved # prostatism - continue finasteride # DM2 - correction-dose lispro # VTE ppx - SCDs # dispo - PT eval, will need STR Quality Stroke Does the patient have a stroke diagnosis?: No VTE Prior VTE?: No VTE Risk Level:: Medical - moderate - high VTE Device Contraindication: Treatment Not Indicated VTE Drug Contraindication: Treatment Not Indicated
[2021-06-21 16:59] LABS: Glucose, Whole Blood 254 mg/dL (60-115)
[2021-06-21 20:15] LABS: Glucose, Whole Blood 153 mg/dL (60-115)
[2021-06-21] MEDS: Metoprolol Tartrate 100 MG TABLET PO (20:23)
[2021-06-22] VITALS (12 sets, daily range): BP systolic 113–142; BP diastolic 49–87; PULSE 70–141; RESP 18–20; TEMP 35.8–36.7; O2SAT 93–98; BMI 34.7
[2021-06-22 00:20] LABS: Glucose, Whole Blood 127 mg/dL (60-115)
[2021-06-22] MEDS: Nafcillin Sodium 2 GM in 0.9 % Sodium Chloride 100 ML IV ×4 (00:28→11:54)
[2021-06-22] MEDS: 0.9 % Sodium Chloride Flush 3 ML SYRINGE IVFLUSH ×3 (00:28→20:50)
[2021-06-22 06:19] LABS: Hematocrit 27.6 % (42.0-52.0); Hemoglobin 8.8 g/dl (14.0-18.0); Mean Corpuscular HGB Conc 31.9 g/dl (31.0-36.0); Mean Corpuscular Hemoglobin 29.7 pg (27.0-33.0); Mean Corpuscular Volume 93.2 fL (80.0-98.0); Platelet Count 187 X10*3/uL (160-400); Red Blood Count 2.96 X10*6/uL (4.60-5.80); Red Cell Distribution Width 16.6 % (11.0-16.0); White Blood Count 17.5 X10*3/uL (4.8-10.8)
[2021-06-22 06:27] LABS: Glucose, Whole Blood 188 mg/dL (60-115)
[2021-06-22 06:33] LABS: Anion Gap 18 (12-20); Blood Urea Nitrogen 68 mg/dL (9-16); Calcium 9.2 mg/dL (8.4-10.2); Carbon Dioxide 26 mmol/L (22-29); Chloride 106 mmol/L (96-108); Creatinine Clr Calc Pharmacy 43.7; Estimated Glomerular Filt Rate 34; Glucose Random 214 mg/dL (60-115); Magnesium 2.4 mg/dL (1.6-2.6); Potassium 3.4 mmol/L (3.3-5.1); Sodium 147 mmol/L (135-145)
[2021-06-22 06:39] LABS: B Type Natriuretic Peptide 1699 pg/mL (<100)
[2021-06-22] MEDS: Omeprazole 40 MG CAPSULE.DR PO ×2 (06:42→17:15)
[2021-06-22 08:01] LABS: Glucose, Whole Blood 214 mg/dL (60-115)
[2021-06-22] MEDS: Metoprolol Tartrate 100 MG TABLET PO ×2 (08:17→20:49)
[2021-06-22] MEDS: Finasteride 5 MG TABLET PO (08:17)
[2021-06-22] MEDS: Insulin Lispro 100 UNIT/ML 3 ML VIAL SUBCUT ×3 (08:18→20:50)
[2021-06-22 11:37] LABS: Glucose, Whole Blood 255 mg/dL (60-115)
--- NOTE | 2021-06-22 12:07 | HO.PM.IMPN ---
Subjective Subjective Date of Service: 06/22/21 Interval History: Being followed for acute hypoxic respiratory failure, AFib with RVR in GI bleed, patient awake alert this morning on high-flow oxygen 40 liters/minute, offers no acute complaints of chest pain, no palpitation no nausea no vomiting no further bout of GI bleed, noted to be in AFib with RVR this morning therefore IV Cardizem restarted at 03:00 currently 15 mcg per hour ventricular rate improved to less than 100. Review of Systems Review of Systems: Yes all other systems are reviewed and are negative Physical Exam Vital Signs: Vital Signs: Last Vital Signs Temp 98.1 F 06/22/21 07:46 Pulse 141 H 06/22/21 07:46 Resp 20 06/22/21 11:14 BP 132/87 06/22/21 10:49 Pulse Ox 96 06/22/21 11:32 Oxygen Flow Rate 6 06/22/21 10:00 BMI result Body Mass Index 34.7 Gen: Awake alert, in no acute distress HEENT: sclera anicteric, moist mucus membranes Neck: supple, LIJ CVC Lungs: diminished bilateral bases, no respiratory distress Heart: regular rate and rhythm, no murmurs Abd: soft, non-tender, non-distended Ext: no edema Skin: warm/well-perfused Neuro: alert and oriented x3, no focal findings Psych: appropriate affect Objective Data Active Medications Finasteride (Finasteride 5 Mg Tablet) 5 mg PO DAILY [facility] Last Admin: 06/22/21 08:17 Dose: 5 mg Documented by: COTEMA Nafcillin Sodium 2 gm/ Sodium (Chloride) 100 mls @ 200 mls/hr IV Q4H [facility] Last Admin: 06/22/21 11:54 Dose: 200 mls/hr Documented by: COTEMA Diltiazem HCl 125 mg/ Sodium (Chloride) 125 mls @ 0 mls/hr IVCONT .Q0M [facility]; Protocol Last Titration: 06/22/21 07:37 Dose: 10 mg/hr, 10 mls/hr Documented by: COTEMA Insulin Human Lispro (Insulin Lispro 100 Unit/Ml 3 Ml Vial) 0 unit SUBCUT QIDACHS [facility]; Protocol Last Admin: 06/22/21 11:54 Dose: 6 unit Documented by: COTEMA Metoprolol Tartrate (Metoprolol Tartrate 100 Mg Tablet) 100 mg PO BID [facility]; Protocol Last Admin: 06/22/21 08:17 Dose: 100 mg Documented by: FRANKIE Omeprazole (Omeprazole 40 Mg Capsule.Dr) 40 mg PO BID@0630,1630 [facility] Last Admin: 06/22/21 06:42 Dose: 40 mg Documented by: HOLLAND Sodium Chloride (0.9 % Sodium Chloride Flush 3 Ml Syringe) 3 ml IVFLUSH QSHIFT [facility] Last Admin: 06/22/21 07:48 Dose: Not Given Documented by: FRANKIE Non-Admin Reason: IV Running Labs CBC & Chem 7: 06/22/21 06:04 06/22/21 06:04 Labs: Laboratory Results - last 24 hr 06/21/21 06/21/21 06/22/21 16:55 20:11 00:16 MCV MCH MCHC RDW Plt Count MPV Absolute Nucleated RBC Nucleated RBC % (auto) Anion Gap Estim Creat Clear Calc Estimated GFR POC Glucose 254 H 153 H 127 H Random Glucose Calcium Magnesium B-Natriuretic Peptide 06/22/21 06/22/21 06/22/21 06:04 06:04 06:04 MCV 93.2 MCH 29.7 MCHC 31.9 RDW 16.6 H Plt Count 187 MPV 11.0 Absolute Nucleated RBC 0.000 Nucleated RBC % (auto) 0.0 Anion Gap 18 Estim Creat Clear Calc 43.7 Estimated GFR 34 POC Glucose Random Glucose 214 H Calcium 9.2 Magnesium 2.4 B-Natriuretic Peptide 1699 H 06/22/21 06/22/21 06/22/21 06:23 07:45 11:29 MCV MCH MCHC RDW Plt Count MPV Absolute Nucleated RBC Nucleated RBC % (auto) Anion Gap Estim Creat Clear Calc Estimated GFR POC Glucose 188 H 214 H 255 H Random Glucose Calcium Magnesium B-Natriuretic Peptide Microbiology Microbiology Results: Microbiology 06/19/21 14:55 Blood Culture - Preliminary Blood - Venous No growth after 48 hours. 06/19/21 14:54 Blood Culture - Preliminary Blood - Venous No growth after 48 hours. Assessment and Plan (1) Acute respiratory distress syndrome (ARDS) due to COVID-19 virus: Status: Acute (2) Morbid obesity: Status: Acute (3) Acute hypoxemic respiratory failure: Status: Acute (4) GI bleed: Status: Acute (5) Hypotension: Status: Acute (6) Atrial fibrillation with rapid ventricular response: Status: Acute Assessment and Plan: 76yo M with HTN, HLD, DM2, BPH, obesity admitted with breakthrough Covid-19 infection, AF/RVR, MSSA bacteremia developed hemorrhagic shock from large GI bleed and transferred to ICU EGD 06/[address] Mae under GETA: multiple duodenal ulcers, active bleeding from a visible vessel in a 15x20 mm ulcer, bleeding controlled with 3ml epinephrine and gold probe cautery remained intubated after EGD, required norepinephrine and 2u PRBCs extubated 06/19/20, stepped down to [facility] 06/20 # AF/RVR - continue metoprolol tartrate, will add by mouth Cardizem and wean off diltiazem gtt - will discuss with GI if/when safe to start anticoagulation for CVA prevention # MSSA bacteremia, / BCx from 06/08-06/09 - unclear source.? repeat BCx from 06/19/21 negative times 48 hours, on IV nafcillin, will discuss with ID regarding duration of antibiotics, no vegetations on TTE? 06/12/21 # hemorrhagic shock and anemia due to GI blood loss from duodenal ulcer - continue PPI - tolerating full liquid diet, will gradually advance diet # Covid-19 pneumonia with ARDS and acute hypoxic respiratory failure, Continue to wean oxygen as tolerated, not given steroids due to duodenal ulcer # pulmonary edema # acute/chronic HFpEF - likely iatrogenic, improved with diuresis, diuretics on hold # ORBIN - likely ischemic ATN vs excess diuresis, serum creatinine trending up will consult Nephrology avoid hypotension + avoid nephrotoxins # thrombocytopenia - resolved # prostatism - continue finasteride # DM2 - blood sugar greater than 200, was not glipizide 10 mg by mouth b.i.d. and pioglitazone once daily, continue diabetic diet and correction-dose lispro # VTE ppx - SCDs # dispo - PT eval, will need STR Quality Stroke Does the patient have a stroke diagnosis?: No VTE Prior VTE?: No VTE Risk Level:: Medical - moderate - high VTE Device Contraindication: Treatment Not Indicated VTE Drug Contraindication: Treatment Not Indicated
[2021-06-22] MEDS: dilTIAZem HCL 30 MG TABLET PO ×3 (12:25→20:50)
--- NOTE | 2021-06-22 15:42 | MHC.CM.PN ---
CM spoke with Patient's /HCP/Fiorella at [phone]. STR is the goal; Patient is not interested in any of the [facility] facilities(his recently at [facility] [place]) and [facility] is first choice. agrees to recheck Patient for Covid, since it has been 14 days since his(+) test .CM will follow for dc planning.
[2021-06-22 17:15] LABS: Glucose, Whole Blood 141 mg/dL (60-115)
[2021-06-22 17:49] LABS: Creatinine Urine 80.47 mg/dL; Sodium Urine Random < 20.0 mmol/L; Total Protein Urine Random 34 mg/dL (<12)
[2021-06-22 21:19] LABS: Glucose, Whole Blood 187 mg/dL (60-115)
[2021-06-22] MEDS: dilTIAZem HCL 125 MG in 0.9 % Sodium Chloride 100 ML 10 MG IVCONT (21:32)
[2021-06-23] VITALS (9 sets, daily range): BP systolic 95–160; BP diastolic 48–75; PULSE 75–133; RESP 18–24; TEMP 35.8–37.1; O2SAT 93–96; BMI 34.9; BMI 35.8
[2021-06-23] MEDS: Omeprazole 40 MG CAPSULE.DR PO ×2 (05:21→16:40)
[2021-06-23 06:43] LABS: MANUAL DIFF FLAG NO
[2021-06-23 06:49] LABS: Basophils Absolute Auto 0.1 X10*3/uL (0.0-0.2); Basophils Percent Auto 0.3 % (0-2); Eosinophils Percent Auto 0.2 % (0-4); Hemoglobin 7.9 g/dl (14.0-18.0); Imm Gran Abs Auto 0.15 X10*3/uL (0.00-0.03); Imm Gran Pct Auto 0.9 % (0.0-0.4); Lymphocytes Absolute Auto 0.8 X10*3/uL (1.2-4.9); Lymphocytes Percent Auto 5.3 % (20-40); Mean Corpuscular HGB Conc 31.6 g/dl (31.0-36.0); Mean Corpuscular Hemoglobin 29.5 pg (27.0-33.0); Mean Corpuscular Volume 93.3 fL (80.0-98.0); Monocytes Absolute Auto 0.7 X10*3/uL (0.1-1.2); Monocytes Percent Auto 4.4 % (2-11); Neutrophils Absolute Auto 14.1 x10*3/uL (2.0-8.3); Neutrophils Percent Auto 88.9 % (45-73); Platelet Count 173 X10*3/uL (160-400); Red Blood Count 2.68 X10*6/uL (4.60-5.80); Red Cell Distribution Width 16.6 % (11.0-16.0); White Blood Count 15.8 X10*3/uL (4.8-10.8)
[2021-06-23 07:06] LABS: Anion Gap 24 (12-20); Blood Urea Nitrogen 80 mg/dL (9-16); Calcium 8.9 mg/dL (8.4-10.2); Carbon Dioxide 20 mmol/L (22-29); Chloride 105 mmol/L (96-108); Creatinine Clr Calc Pharmacy 43.8; Estimated Glomerular Filt Rate 34; Glucose Random 247 mg/dL (60-115); Potassium 3.5 mmol/L (3.3-5.1); Sodium 145 mmol/L (135-145)
[2021-06-23 09:19] LABS: Glucose, Whole Blood 242 mg/dL (60-115)
[2021-06-23] MEDS: Finasteride 5 MG TABLET PO (09:31)
[2021-06-23] MEDS: Metoprolol Tartrate 100 MG TABLET PO ×2 (09:31→20:59)
[2021-06-23] MEDS: Insulin Lispro 100 UNIT/ML 3 ML VIAL SUBCUT ×4 (09:31→20:59)
[2021-06-23] MEDS: 0.9 % Sodium Chloride Flush 3 ML SYRINGE IVFLUSH ×3 (09:32→21:05)
[2021-06-23] MEDS: dilTIAZem HCL 30 MG TABLET PO ×2 (09:33→11:50)
[2021-06-23] MEDS: dilTIAZem HCL 125 MG in 0.9 % Sodium Chloride 100 ML 7.5 MG IVCONT (10:28)
[2021-06-23 11:39] LABS: Glucose, Whole Blood 277 mg/dL (60-115)
--- NOTE | 2021-06-23 11:44 | MHC.CM.PN ---
Per ROUNDS discussion, Patient is not yet medically cleared for dc (IV Cefazolin, IV Cardizem, 1.5 L O2);STR is the goal for dc and CM will follow for possible need to adjust the dc plan.
--- NOTE | 2021-06-23 13:36 | MHC.CLN ---
F/U NO PO ITNAKE RECORDED DIET RX: 2000DM-APPROPRIATE RECOMMEND ADDING GLUCERNA TID TO INCREASE KCALS AND PROMOTE WOUND HEALING SUPP TO PROVIDE 711KCALS, 30G PROTEIN MONITOR PO INTAKE CLOSELY
[2021-06-23] MEDS: dilTIAZem HCL 60 MG TABLET PO ×3 (14:11→20:59)
[2021-06-23 16:14] LABS: Glucose, Whole Blood 184 mg/dL (60-115)
--- NOTE | 2021-06-23 16:36 | P.PNIM_ITS ---
Subjective Subjective Date of Service: 06/23/21 Interval History: Offers no acute complaints denies chest pain, no palpitations, no shortness of breath, tele monitor showed atrial fibrillation ventricular rate 130-140 range, patient on IV Cardizem drip Review of Systems Review of Systems: Yes all other systems are reviewed and are negative Physical Exam Vital Signs: Vital Signs: Last Vital Signs Temp 97.8 F 06/23/21 15:48 Pulse 84 06/23/21 15:48 Resp 18 06/23/21 15:48 BP 136/67 06/23/21 15:48 Pulse Ox 94 06/23/21 15:48 Oxygen Flow Rate 2 06/23/21 10:00 BMI result Body Mass Index 34.9 Const: Other: Gen:? Awake alert, in no acute distress HEENT: sclera anicteric, moist mucus membranes Neck: supple, LIJ CVC Lungs: diminished bilateral bases, no respiratory distress Heart: irregular rate and rhythm, no murmurs Abd: soft, non-tender, non-distended Ext: no edema Skin: warm/well-perfused Neuro: alert and oriented x3, no focal findings Psych: appropriate affect ? Objective Data Active Medications Diltiazem HCl (Diltiazem Hcl 60 Mg Tablet) 60 mg PO QID [facility]; Protocol Last Admin: 06/23/21 14:11 Dose: 60 mg Documented by: WOODROW Finasteride (Finasteride 5 Mg Tablet) 5 mg PO DAILY [facility] Last Admin: 06/23/21 09:31 Dose: 5 mg Documented by: WOODROW Diltiazem HCl 125 mg/ Sodium (Chloride) 125 mls @ 0 mls/hr IVCONT .Q0M [facility]; Pr otocol Last Titration: 06/23/21 14:14 Dose: 0 mg/hr, 0 mls/hr Documented by: WOODROW Cefazolin Sodium 1 gm/ Sodium (Chloride) 50 mls @ 100 mls/hr IV Q12H [facility] Last Infusion: 06/23/21 15:42 Dose: 0 mls/hr Documented by: WOODROW Insulin Human Lispro (Insulin Lispro 100 Unit/Ml 3 Ml Vial) 0 unit SUBCUT QIDACHS [facility]; Protocol Last Admin: 06/23/21 11:49 Dose: 6 unit Documented by: WOODROW Metoprolol Tartrate (Metoprolol Tartrate 100 Mg Tablet) 100 mg PO BID [facility]; Protocol Last Admin: 06/23/21 09:31 Dose: 100 mg Documented by: WOODROW Omeprazole (Omeprazole 40 Mg Capsule.Dr) 40 mg PO BID@0630,1630 [facility] Last Admin: 06/23/21 05:21 Dose: 40 mg Documented by: HOLLAND Sodium Chloride (0.9 % Sodium Chloride Flush 3 Ml Syringe) 3 ml IVFLUSH QSHIFT [facility] Last Admin: 06/23/21 09:32 Dose: 3 ml Documented by: WOODROW Labs CBC & Chem 7: 06/23/21 06:37 06/23/21 06:37 Labs: Laboratory Results - last 24 hr 06/22/21 06/22/21 06/22/21 17:09 17:12 20:46 MCV MCH MCHC RDW Plt Count MPV Immature Gran % (Auto) Neut % (Auto) Lymph % (Auto) [place] % (Auto) Eos % (Auto) Baso % (Auto) Lymph # (Auto) [place] # (Auto) Eos # (Auto) Baso # (Auto) Abs Immat Gran (auto) Absolute Neuts (auto) Absolute Nucleated RBC Nucleated RBC % (auto) Anion Gap Estim Creat Clear Calc Estimated GFR POC Glucose 141 H 187 H Random Glucose Calcium U Random Total Protein 34 H Ur Random Sodium < 20.0 Urine Creatinine 80.47 06/23/21 06/23/21 06/23/21 06:37 06:37 09:15 MCV 93.3 MCH 29.5 MCHC 31.6 RDW 16.6 H Plt Count 173 MPV 11.0 Immature Gran % (Auto) 0.9 H Neut % (Auto) 88.9 H Lymph % (Auto) 5.3 L [place] % (Auto) 4.4 Eos % (Auto) 0.2 Baso % (Auto) 0.3 Lymph # (Auto) 0.8 L [place] # (Auto) 0.7 Eos # (Auto) 0.0 Baso # (Auto) 0.1 Abs Immat Gran (auto) 0.15 H Absolute Neuts (auto) 14.1 H Absolute Nucleated RBC 0.000 Nucleated RBC % (auto) 0.0 Anion Gap 24 H Estim Creat Clear Calc 43.8 Estimated GFR 34 POC Glucose 242 H Random Glucose 247 H Calcium 8.9 U Random Total Protein Ur Random Sodium Urine Creatinine 06/23/21 06/23/21 11:28 15:47 MCV MCH MCHC RDW Plt Count MPV Immature Gran % (Auto) Neut % (Auto) Lymph % (Auto) [place] % (Auto) Eos % (Auto) Baso % (Auto) Lymph # (Auto) [place] # (Auto) Eos # (Auto) Baso # (Auto) Abs Immat Gran (auto) Absolute Neuts (auto) Absolute Nucleated RBC Nucleated RBC % (auto) Anion Gap Estim Creat Clear Calc Estimated GFR POC Glucose 277 H 184 H Random Glucose Calcium U Random Total Protein Ur Random Sodium Urine Creatinine Assessment and Plan (1) Acute respiratory distress syndrome (ARDS) due to COVID-19 virus: Status: Acute (2) Morbid obesity: Status: Acute (3) Acute hypoxemic respiratory failure: Status: Acute (4) GI bleed: Status: Acute (5) Hypotension: Status: Acute (6) Atrial fibrillation with rapid ventricular response: Status: Acute Assessment and Plan: 76yo M with HTN, HLD, DM2, BPH, obesity admitted with breakthrough Covid-19 infection, AF/RVR, MSSA bacteremia developed hemorrhagic shock from large GI bleed and transferred to ICU EGD 06/[address] Mae under GETA: multiple duodenal ulcers, active bleeding from a visible vessel in a 15x20 mm ulcer, bleeding controlled with 3ml epinephrine and gold probe cautery remained intubated after EGD, required norepinephrine and 2u PRBCs extubated 06/19/20, stepped down to IMC 06/20 # AF/RVR -persistent AFib with RVR, will wean Cardizem drip and increase dose of by mouth Cardizem to 60 mg q.6 hours - continue metoprolol tartrate, will change to Cardizem CD 2 40 mg by mouth at a .m. - will discuss with GI if/when safe to start anticoagulation for CVA prevention # MSSA bacteremia, 4/ BCx from 06/08-06/09 - unclear source.? repeat BCx from 06/19/21 negative times 48 hours, s/p IV nafcillin, changed to IV cefazolin due to rising creatinine, ID recs Kefzol for total 28 days antibiotic , no vegetations on TTE? 06/12/21 # hemorrhagic shock and anemia due to GI blood loss from duodenal ulcer - continue PPI - tolerating regular diet, hematocrit dropped but stable follow CBC, check stool guaiac # Covid-19 pneumonia with ARDS and acute hypoxic respiratory failure, Continue to wean oxygen as tolerated, not given steroids due to duodenal ulcer # pulmonary edema # acute/chronic HFpEF - likely iatrogenic, improved with diuresis, diuretics on hold due to rising creatinine and patient appears euvolemic, patient not on home diuretics # ROBIN - likely ischemic ATN vs excess diuresis, serum creatinine trending up likely due to Nafcicillin avoid hypotension + avoid nephrotoxins Await Nephrology input, follow BMP # thrombocytopenia - resolved # prostatism - continue finasteride # DM2 - blood sugar greater than 200, was on glipizide 10 mg by mouth b.i.d. and pioglitazone once daily, continue diabetic diet and correction-dose lispro # VTE ppx - SCDs # dispo - PT eval, will need STR Quality Stroke Does the patient have a stroke diagnosis?: No VTE Prior VTE?: No VTE Risk Level:: Medical - moderate - high VTE Device Contraindication: Treatment Not Indicated VTE Drug Contraindication: Treatment Not Indicated
[2021-06-23 20:06] LABS: Glucose, Whole Blood 172 mg/dL (60-115)
[2021-06-24] VITALS (7 sets, daily range): BP systolic 119–148; BP diastolic 64–77; PULSE 88–144; RESP 18–24; TEMP 35.7–36.9; O2SAT 90–99; BMI 35.2
[2021-06-24 00:05] LABS: Glucose, Whole Blood 184 mg/dL (60-115)
[2021-06-24] MEDS: Omeprazole 40 MG CAPSULE.DR PO ×2 (05:56→17:32)
[2021-06-24 06:28] LABS: OBS1 POSITIVE (NEGATIVE)
[2021-06-24 06:29] LABS: OBS Int Ctl Valid YES
[2021-06-24 06:49] LABS: Hematocrit 25.9 % (42.0-52.0); Hemoglobin 7.9 g/dl (14.0-18.0); Mean Corpuscular HGB Conc 30.5 g/dl (31.0-36.0); Mean Corpuscular Hemoglobin 29.3 pg (27.0-33.0); Mean Corpuscular Volume 95.9 fL (80.0-98.0); Mean Platelet Volume 11.8 fL (9.4-12.4); Platelet Count 165 X10*3/uL (160-400); Red Cell Distribution Width 17.1 % (11.0-16.0)
[2021-06-24 07:11] LABS: Anion Gap 19 (12-20); Blood Urea Nitrogen 81 mg/dL (9-16); Calcium 8.9 mg/dL (8.4-10.2); Carbon Dioxide 25 mmol/L (22-29); Chloride 104 mmol/L (96-108); Creatinine Clr Calc Pharmacy 48.5; Estimated Glomerular Filt Rate 38; Glucose Random 241 mg/dL (60-115); Potassium 3.8 mmol/L (3.3-5.1); Sodium 144 mmol/L (135-145)
[2021-06-24 08:17] LABS: Glucose, Whole Blood 236 mg/dL (60-115)
[2021-06-24] MEDS: dilTIAZem HCL 60 MG TABLET PO (08:20)
[2021-06-24] MEDS: Finasteride 5 MG TABLET PO (08:20)
[2021-06-24] MEDS: Metoprolol Tartrate 100 MG TABLET PO ×2 (08:20→19:21)
[2021-06-24] MEDS: Insulin Lispro 100 UNIT/ML 3 ML VIAL SUBCUT ×3 (08:20→17:32)
[2021-06-24] MEDS: 0.9 % Sodium Chloride Flush 3 ML SYRINGE IVFLUSH ×3 (08:20→19:23)
[2021-06-24 08:37] LABS: Magnesium 2.6 mg/dL (1.6-2.6)
[2021-06-24 11:25] LABS: Glucose, Whole Blood 230 mg/dL (60-115)
[2021-06-24] MEDS: dilTIAZem HCL 30 MG TABLET 90 MG PO ×3 (12:58→19:22)
--- NOTE | 2021-06-24 13:18 | PM.PNNEP ---
Subjective Subjective Date of Service: 06/24/21 Principal diagnosis: robin Interval history: Seen and examine, events noted Physical Exam Vital Signs: Vital Signs: Last Vital Signs Temp 97 F 06/24/21 11:42 Pulse 126 H 06/24/21 11:42 Resp 22 H 06/24/21 11:42 BP 119/71 06/24/21 11:42 Pulse Ox 99 06/24/21 11:42 Oxygen Flow Rate 2 06/24/21 09:19 BMI result Body Mass Index 35.2 Const: Other: Gen:? Awake alert, in no acute distress HEENT: sclera anicteric, moist mucus membranes Neck: supple, LIJ CVC Lungs: diminished bilateral bases, no respiratory distress Heart: irregular rate and rhythm, no murmurs Abd: soft, non-tender, non-distended Ext: no edema Skin: warm/well-perfused Neuro: alert and oriented x3, no focal findings Psych: appropriate affect ? General: cooperative, comfortable, no acute distress, alert, awake, ill appearing and other ( sedated on the vent, arousable with sedation vacation) Nutritional Appearance: obese Orientation/consciousness: patient oriented x3 HENMT: Head: Yes normal to inspection Eyes: Sclerae: sclerae normal EOM: EOMs intact bilaterally Neck: Neck: Yes no lymphadenopathy, Yes trachea midline, Yes supple and Yes no JVD Resp: Other: On ventilator Effort & Inspection: normal respiratory effort, decreased respiratory effort and no respiratory distress Auscultation: crackles ( Bibasilar), no rales, no wheezes and diminished lung sounds Cardio: Other: irregular, AFib Jugular venous distension: no JVD Rate: regular rate and tachycardic Rhythm: regular rhythm and abnormal rhythm irregularly irregular Heart sounds: S1 normal heart sound present, S2 normal heart sound present, no click, no gallops, no murmurs and no rubs GI: Other: abdomen is soft and without masses Palpation (GI): Soft to palpation, not firm, nontender, no guarding, not rigid and Other GI palpation findings present ( Nontender) Auscultation: normal bowel sounds Skin: General skin exam: no rashes or lesions noted Neuro: General: patient oriented x3 and no focal motor deficits Extrem: General: Yes normal to inspection, Yes no clubbing, cyanosis or edema, Yes no pedal edema, No clubbing, No cyanosis and Yes pedal edema ( 1+ bilateral) Psych: Appearance: grossly normal Objective Data Labs CBC & Chem 7: 06/24/21 06:33 06/24/21 06:33 Labs: Laboratory Results - last 24 hr 06/23/21 06/23/21 06/24/21 15:47 19:51 00:01 WBC RBC Hgb Hct MCV MCH MCHC RDW Plt Count MPV Absolute Nucleated RBC Nucleated RBC % (auto) Sodium Potassium Chloride Carbon Dioxide Anion Gap BUN Creatinine Estim Creat Clear Calc Estimated GFR POC Glucose 184 H 172 H 184 H Random Glucose Calcium Magnesium Stool Collect Date Stool Occult Blood Stool 2 Collect Date Stool Occult Blood #2 Stool 3 Collect Date Stool Occult Blood #3 06/24/21 06/24/21 06/24/21 06:00 06:00 06:33 WBC 17.0 H RBC 2.70 L Hgb 7.9 L Hct 25.9 L MCV 95.9 MCH 29.3 MCHC 30.5 L RDW 17.1 H Plt Count 165 MPV 11.8 Absolute Nucleated RBC 0.000 Nucleated RBC % (auto) 0.0 Sodium Potassium Chloride Carbon Dioxide Anion Gap BUN Creatinine Estim Creat Clear Calc Estimated GFR POC Glucose Random Glucose Calcium Magnesium Stool Collect Date Cancelled Stool Occult Blood Cancelled POSITIVE Stool 2 Collect Date Cancelled Stool Occult Blood #2 Cancelled Stool 3 Collect Date Cancelled Stool Occult Blood #3 Cancelled 06/24/21 06/24/21 06/24/21 06:33 08:06 11:18 WBC RBC Hgb Hct MCV MCH MCHC RDW Plt Count MPV Absolute Nucleated RBC Nucleated RBC % (auto) Sodium 144 Potassium 3.8 Chloride 104 Carbon Dioxide 25 Anion Gap 19 BUN 81 H Creatinine 1.74 H Estim Creat Clear Calc 48.5 Estimated GFR 38 POC Glucose 236 H 230 H Random Glucose 241 H Calcium 8.9 Magnesium 2.6 Stool Collect Date Stool Occult Blood Stool 2 Collect Date Stool Occult Blood #2 Stool 3 Collect Date Stool Occult Blood #3 Microbiology Microbiology Results: Microbiology 06/19/21 14:55 Blood - Venous Blood Culture - Preliminary No growth after 48 hours. 06/19/21 14:54 Blood - Venous Blood Culture - Preliminary No growth after 48 hours. 06/09/21 17:15 Blood - Venous Blood Culture - Final Staphylococcus aureus 06/09/21 17:10 Blood - Venous Blood Culture - Final Staphylococcus aureus 06/08/21 23:11 Blood - Venous Blood Culture - Final Staphylococcus aureus 06/08/21 23:11 Blood - Venous Blood Culture - Final Staphylococcus aureus Procedures Date of Service Date of Service: 06/24/21 Assessment & Plan Assessment and plan (1) Acute respiratory distress syndrome (ARDS) due to COVID-19 virus: Status: Acute (2) Morbid obesity: Status: Acute (3) Acute hypoxemic respiratory failure: Status: Acute (4) GI bleed: Status: Acute (5) Hypotension: Status: Acute (6) Atrial fibrillation with rapid ventricular response: Status: Acute Assessment and Plan: 76yo M with HTN, HLD, DM2, BPH, obesity admitted with breakthrough Covid-19 infection, AF/RVR, MSSA bacteremia developed hemorrhagic shock from large GI bleed Over past 2-3 days developed ROBIN with incr Bun/cr ratio 1. ROBIN: lab studies c/w renal hypoperfusion ( FENa < 1%) and incr Bun/Cr ratio; other poss ATN multifact AIN/AGN seem unlikely given clincial course but still need routine UA Obs still needs to r/o with renal u/s 2. Incr Bun/Cr ratio: suspect IV vol depleted; other poss is UGIB but that prob has passed ? REC: UA, renal u/s; consider gentle IVF 0.9 at 50 ml/hr x 1 liter; track UOP/renal func will follow clsoley with team Time Spent With Patient Time: Total time spent is greater than 50% in coordination of care (as documented) at patient's floor/unit and/or counseling patient: Progress Note: Quality Stroke Does the patient have a stroke diagnosis?: No
--- NOTE | 2021-06-24 14:49 | HO.PM.IMPN ---
Subjective Subjective Date of Service: 06/24/21 Interval History: ventricular rate 110s-130s denies palpitations, dyspnea, or chest pain Review of Systems Review of Systems: Yes all other systems are reviewed and are negative Physical Exam Vital Signs: Vital Signs: Last Vital Signs Temp 97 F 06/24/21 11:42 Pulse 126 H 06/24/21 11:42 Resp 22 H 06/24/21 11:42 BP 119/71 06/24/21 11:42 Pulse Ox 99 06/24/21 11:42 Oxygen Flow Rate 2 06/24/21 09:19 BMI result Body Mass Index 35.2 Gen:? Awake alert, in no acute distress HEENT: sclera anicteric, moist mucus membranes Neck: supple, LIJ CVC Lungs: diminished bilateral bases, no respiratory distress Heart: rapid, irregular rhythm, no murmurs Abd: soft, non-tender, non-distended Ext: no edema Skin: warm/well-perfused Neuro: alert and oriented x3, no focal findings Psych: appropriate affect Objective Data Active Medications Diltiazem HCl (Diltiazem Hcl 30 Mg Tablet) 90 mg PO QID [facility]; Protocol Last Admin: 06/24/21 12:58 Dose: 90 mg Documented by: WOODROW Finasteride (Finasteride 5 Mg Tablet) 5 mg PO DAILY [facility] Last Admin: 06/24/21 08:20 Dose: 5 mg Documented by: WOODROW Cefazolin Sodium 1 gm/ Sodium (Chloride) 50 mls @ 100 mls/hr IV Q12H [facility] Last Infusion: 06/24/21 13:39 Dose: 0 mls/hr Documented by: WOODROW Insulin Human Lispro (Insulin Lispro 100 Unit/Ml 3 Ml Vial) 0 unit SUBCUT QIDACHS [facility]; Protocol Last Admin: 06/24/21 12:05 Dose: 4 unit Documented by: WOODROW Metoprolol Tartrate (Metoprolol Tartrate 100 Mg Tablet) 100 mg PO BID [facility]; Protocol Last Admin: 06/24/21 08:20 Dose: 100 mg Documented by: WOODROW Omeprazole (Omeprazole 40 Mg Capsule.) 40 mg PO BID@0630,1630 [facility] Last Admin: 06/24/21 05:56 Dose: 40 mg Documented by: MAYDA Sodium Chloride (0.9 % Sodium Chloride Flush 3 Ml Syringe) 3 ml IVFLUSH QSHIFT [facility] Last Admin: 06/24/21 08:20 Dose: 3 ml Documented by: WOODROW Labs CBC & Chem 7: 06/24/21 06:33 06/24/21 06:33 Labs: Laboratory Results - last 24 hr 06/23/21 06/23/21 06/24/21 15:47 19:51 00:01 MCV MCH MCHC RDW Plt Count MPV Absolute Nucleated RBC Nucleated RBC % (auto) Anion Gap Estim Creat Clear Calc Estimated GFR POC Glucose 184 H 172 H 184 H Random Glucose Calcium Magnesium Stool Collect Date Stool Occult Blood Stool 2 Collect Date Stool Occult Blood #2 Stool 3 Collect Date Stool Occult Blood #3 06/24/21 06/24/21 06/24/21 06:00 06:00 06:33 MCV 95.9 MCH 29.3 MCHC 30.5 L RDW 17.1 H Plt Count 165 MPV 11.8 Absolute Nucleated RBC 0.000 Nucleated RBC % (auto) 0.0 Anion Gap Estim Creat Clear Calc Estimated GFR POC Glucose Random Glucose Calcium Magnesium Stool Collect Date Cancelled Stool Occult Blood Cancelled POSITIVE Stool 2 Collect Date Cancelled Stool Occult Blood #2 Cancelled Stool 3 Collect Date Cancelled Stool Occult Blood #3 Cancelled 06/24/21 06/24/21 06/24/21 06:33 08:06 11:18 MCV MCH MCHC RDW Plt Count MPV Absolute Nucleated RBC Nucleated RBC % (auto) Anion Gap 19 Estim Creat Clear Calc 48.5 Estimated GFR 38 POC Glucose 236 H 230 H Random Glucose 241 H Calcium 8.9 Magnesium 2.6 Stool Collect Date Stool Occult Blood Stool 2 Collect Date Stool Occult Blood #2 Stool 3 Collect Date Stool Occult Blood #3 Assessment and Plan (1) Acute respiratory distress syndrome (ARDS) due to COVID-19 virus: Status: Acute (2) Morbid obesity: Status: Acute (3) Acute hypoxemic respiratory failure: Status: Acute (4) GI bleed: Status: Acute (5) Hypotension: Status: Acute (6) Atrial fibrillation with rapid ventricular response: Status: Acute Assessment and Plan: hospital d#17 76yo M with HTN, HLD, DM2, BPH, obesity admitted with breakthrough Covid-19 infection, AF/RVR, MSSA bacteremia developed hemorrhagic shock from large GI bleed and transferred to ICU EGD 06/[address] Mae under GETA: multiple duodenal ulcers, active bleeding from a visible vessel in a 15x20 mm ulcer, bleeding controlled with 3ml epinephrine and gold probe cautery remained intubated after EGD, required norepinephrine and 2u PRBCs extubated 06/19/20, stepped down to IMC 06/20 # AF/RVR - off diltiazem gtt, increase PO diltiazem from 60 to 90 mg qid; continue metoprolol 100 mg bid - anticoagulation deferred for at least a month pending GI f/u and likely repeat C-scope to ensure healing of duodenal ulcers # MSSA bacteremia, / BCx from 06/08-06/09 - unclear source.? repeat BCx from 06/19/21 negative times 48 hours, s/p IV nafcillin, changed to IV cefazolin due to rising creatinine, on d#6 of as per ID , no vegetations on TTE? 06/12/21 # hemorrhagic shock and anemia due to GI blood loss from duodenal ulcer - continue PPI - tolerating regular diet, hematocrit dropped but stable follow CBC, guaiac+ from recent GIB # Covid-19 pneumonia with ARDS and acute hypoxic respiratory failure - continue to wean oxygen as tolerated, not given steroids due to duodenal ulcer, currently on 2L O2 # pulmonary edema # acute/chronic HFpEF - likely iatrogenic, improved with diuresis, diuretics on hold due to rising creatinine; patient appears euvolemic and he is not on home diuretics # ROBIN - likely ischemic ATN vs excess diuresis, improved - serum creatinine then increased, likely due to nafcillin + diuresis; improved with switch to cefazolin and discontinuing diuresis - renal US pending - Nephrology following # thrombocytopenia - resolved # prostatism - continue finasteride # DM2 - blood sugar greater than 200, was on glipizide 10 mg by mouth b.i.d. and pioglitazone once daily, continue diabetic diet and correction-dose lispro # VTE ppx - SCDs # dispo - PT eval, will need STR Quality Stroke Does the patient have a stroke diagnosis?: No VTE Prior VTE?: No VTE Risk Level:: Medical - moderate - high VTE Device Contraindication: Treatment Not Indicated VTE Drug Contraindication: Treatment Not Indicated
[2021-06-24 17:08] LABS: Glucose, Whole Blood 182 mg/dL (60-115)
[2021-06-24 18:05] LABS: Appearance Urine CLEAR; Color Urine YELLOW; Glucose Urine UA NEG (NEG); Leukocyte Esterase Urine NEG (NEG); Nitrite Urine NEG (NEG); PH 5.5 (5.0-8.0); Specific Gravity - Urine 1.025 (1.005-1.025); Urine Blood 1+ (NEG); Urine Ketones NEG (NEG); Urine Protein TRACE MG/DL (NEG-TRACE)
[2021-06-24 18:18] LABS: WBC Urine 0-2 /HPF (0-4)
[2021-06-24 18:19] LABS: Bacteria Urine TRACE /LPF; Mucus Urine TRACE /LPF; Squamous Epithelial Cell Urine TRACE /LPF; Uric Acid Crystals Urine TRACE /LPF
--- NOTE | 2021-06-24 18:26 | PC.NURSE ---
Per Dr. Nascimento's order midline removed, catheter intact, coverd the site with sterile gauze and xeroform, patient tolerated procedure well.
[2021-06-24 20:19] LABS: Glucose, Whole Blood 180 mg/dL (60-115)
[2021-06-25] VITALS (7 sets, daily range): BP systolic 78–149; BP diastolic 54–81; PULSE 74–163; RESP 17–20; TEMP 35.6–36.8; O2SAT 92–98; BMI 35.0
[2021-06-25] MEDS: Omeprazole 40 MG CAPSULE.DR PO ×2 (05:29→17:44)
[2021-06-25 07:26] LABS: Anion Gap 17 (12-20); Blood Urea Nitrogen 83 mg/dL (9-16); Calcium 9.1 mg/dL (8.4-10.2); Carbon Dioxide 27 mmol/L (22-29); Chloride 105 mmol/L (96-108); Creatinine Clr Calc Pharmacy 53.3; Estimated Glomerular Filt Rate 43; Glucose Random 199 mg/dL (60-115); Magnesium 2.7 mg/dL (1.6-2.6); Potassium 3.3 mmol/L (3.3-5.1); Sodium 146 mmol/L (135-145)
[2021-06-25 07:52] LABS: Glucose, Whole Blood 196 mg/dL (60-115)
[2021-06-25] MEDS: Insulin Lispro 100 UNIT/ML 3 ML VIAL SUBCUT ×2 (08:02→11:47)
[2021-06-25] MEDS: Finasteride 5 MG TABLET PO (08:03)
[2021-06-25] MEDS: 0.9 % Sodium Chloride Flush 3 ML SYRINGE IVFLUSH ×3 (08:03→21:35)
[2021-06-25] MEDS: dilTIAZem HCL 30 MG TABLET 90 MG PO (08:03)
[2021-06-25] MEDS: Metoprolol Tartrate 100 MG TABLET PO ×2 (08:03→21:35)
--- NOTE | 2021-06-25 10:51 | HO.PM.IMPN ---
Subjective Subjective Date of Service: 06/25/21 Interval History: Has difficulty swallowing liquids No dyspnea Overnight ventricular rate in 80s-90s, but now up in the 140s-150s No palpitations No chest pain Review of Systems Review of Systems: Yes all other systems are reviewed and are negative Physical Exam Vital Signs: Vital Signs: Last Vital Signs Temp 96.5 F L 06/25/21 07:54 Pulse 163 H 06/25/21 07:54 Resp 20 06/25/21 07:54 BP 127/81 06/25/21 07:54 Pulse Ox 96 06/25/21 07:54 Oxygen Flow Rate 2 06/24/21 09:19 BMI result Body Mass Index 35.0 Gen: in no acute distress HEENT: sclera anicteric, moist mucus membranes Neck: supple Lungs: clear to auscultation bilaterally Heart: rapid and irregular, no murmurs Abd: soft, non-tender, non-distended Ext: no edema Skin: warm/well-perfused Neuro: alert and oriented x3, no focal findings Psych: appropriate affect Objective Data Active Medications Finasteride (Finasteride 5 Mg Tablet) 5 mg PO DAILY [facility] Last Admin: 06/25/21 08:03 Dose: 5 mg Documented by: WOODROW Cefazolin Sodium 1 gm/ Sodium (Chloride) 50 mls @ 100 mls/hr IV Q12H [facility] Last Infusion: 06/25/21 01:27 Dose: 0 mls/hr Documented by: LORENA Diltiazem HCl 125 mg/ Sodium (Chloride) 125 mls @ 0 mls/hr IVCONT .Q0M [facility]; Protocol Insulin Human Lispro (Insulin Lispro 100 Unit/Ml 3 Ml Vial) 0 unit SUBCUT QIDACHS [facility]; Protocol Last Admin: 06/25/21 08:02 Dose: 2 unit Documented by: WOODROW Metoprolol Tartrate (Metoprolol Tartrate 100 Mg Tablet) 100 mg PO BID [facility]; Protocol Last Admin: 06/25/21 08:03 Dose: 100 mg Documented by: WOODROW Omeprazole (Omeprazole 40 Mg Capsule.) 40 mg PO BID@0630,1630 [facility] Last Admin: 06/25/21 05:29 Dose: 40 mg Documented by: LORENA Sodium Chloride (0.9 % Sodium Chloride Flush 3 Ml Syringe) 3 ml IVFLUSH QSHIFT [facility] Last Admin: 06/25/21 08:03 Dose: 3 ml Documented by: WOODROW Labs CBC & Chem 7: 06/24/21 06:33 06/25/21 06:13 Labs: Laboratory Results - last 24 hr 06/24/21 06/24/21 06/24/21 11:18 16:57 17:30 Anion Gap Estim Creat Clear Calc Estimated GFR POC Glucose 230 H 182 H Random Glucose Calcium Magnesium Urine Color YELLOW Urine Appearance CLEAR Urine pH 5.5 Ur Specific [place] 1.025 Urine Protein TRACE Urine Glucose (UA) NEG Urine Ketones NEG Urine Blood 1+ H Urine Nitrite NEG Ur Leukocyte Esterase NEG Urine RBC 10-14 H Urine WBC 0-2 Ur Squamous Epith Cells TRACE Uric Acid Crystals TRACE Urine Bacteria TRACE Urine Mucus TRACE 06/24/21 06/25/21 06/25/21 20:06 06:13 07:48 Anion Gap 17 Estim Creat Clear Calc 53.3 Estimated GFR 43 POC Glucose 180 H 196 H Random Glucose 199 H Calcium 9.1 Magnesium 2.7 H Urine Color Urine Appearance Urine pH Ur Specific [place] Urine Protein Urine Glucose (UA) Urine Ketones Urine Blood Urine Nitrite Ur Leukocyte Esterase Urine RBC Urine WBC Ur Squamous Epith Cells Uric Acid Crystals Urine Bacteria Urine Mucus Microbiology Microbiology Results: Microbiology 06/19/21 14:54 Blood Culture - Final Blood - Venous No growth after 5 days. 06/19/21 14:55 Blood Culture - Final Blood - Venous No growth after 5 days. Assessment and Plan (1) Acute respiratory distress syndrome (ARDS) due to COVID-19 virus: Status: Acute (2) Morbid obesity: Status: Acute (3) Acute hypoxemic respiratory failure: Status: Acute (4) GI bleed: Status: Acute (5) Hypotension: Status: Acute (6) Atrial fibrillation with rapid ventricular response: Status: Acute Assessment and Plan: hospital d#18 76yo M with HTN, HLD, DM2, BPH, obesity admitted with breakthrough Covid-19 infection, AF/RVR, MSSA bacteremia developed hemorrhagic shock from large GI bleed and transferred to ICU EGD 06/[address] Mae under GETA: multiple duodenal ulcers, active bleeding from a visible vessel in a 15x20 mm ulcer, bleeding controlled with 3ml epinephrine and gold probe cautery remained intubated after EGD, required norepinephrine and 2u PRBCs extubated 06/19/20, stepped down to IMC 06/20 # AF/RVR - restart diltiazem gtt, continue metoprolol tartrate 100 mg bid - anticoagulation deferred for at least a month pending GI f/u and likely repeat C-scope to ensure healing of duodenal ulcers # MSSA bacteremia, 4/ BCx from 06/08-06/09 - unclear source.? repeat BCx from 06/19/21 negative times 48 hours, s/p IV nafcillin, changed to IV cefazolin due to rising creatinine, on d#7 as per ID , no vegetations on TTE?06/12/21 # hemorrhagic shock and anemia due to GI blood loss from duodenal ulcer - continue bid PPI - tolerating regular diet, hematocrit dropped but stable follow CBC, guaiac+ from recent GIB - will need GI follow-up for repeat EGD # Covid-19 pneumonia with ARDS and acute hypoxic respiratory failure - continue to wean oxygen as tolerated, not given steroids due to duodenal ulcer, currently on 2L O2 # dysphagia s/p extubation - will order [employer] consult and in meanwhile place on NDD2 solids/nectar-thick liquids # pulmonary edema # acute/chronic HFpEF - likely iatrogenic, improved with diuresis, diuretics on hold due to rising creatinine; patient appears euvolemic and he is not on home diuretics # ROBIN - likely ischemic ATN vs excess diuresis; continues to improve - serum creatinine then increased, likely due to nafcillin + diuresis; improved with switching to cefazolin and discontinuing diuresis - Nephrology following # thrombocytopenia - resolved # prostatism - continue finasteride # DM2 - as on glipizide 10 mg by mouth b.i.d. and pioglitazone once daily, continue diabetic diet and correction-dose lispro # VTE ppx - SCDs # dispo - STR placement pending, will recheck Covid-19 JOSE ALBERTO in am Quality Stroke Does the patient have a stroke diagnosis?: No VTE Prior VTE?: No VTE Risk Level:: Medical - moderate - high VTE Device Contraindication: Treatment Not Indicated VTE Drug Contraindication: Treatment Not Indicated
[2021-06-25 11:12] LABS: Glucose, Whole Blood 189 mg/dL (60-115)
--- NOTE | 2021-06-25 11:40 | P.PNNP_ITS ---
Subjective Subjective Date of Service: 06/25/21 Principal diagnosis: robin Interval history: Seen and examined, events noted Physical Exam Vital Signs: Vital Signs: Last Vital Signs Temp 96.4 F L 06/25/21 11:19 Pulse 118 H 06/25/21 11:19 Resp 17 06/25/21 11:19 BP 142/59 H 06/25/21 11:19 Pulse Ox 97 06/25/21 11:19 Oxygen Flow Rate 2 06/24/21 09:19 BMI result Body Mass Index 35.0 Const: Other: Gen:? Awake alert, in no acute distress HEENT: sclera anicteric, moist mucus membranes Neck: supple, LIJ CVC Lungs: diminished bilateral bases, no respiratory distress Heart: irregular rate and rhythm, no murmurs Abd: soft, non-tender, non-distended Ext: no edema Skin: warm/well-perfused Neuro: alert and oriented x3, no focal findings Psych: appropriate affect ? General: cooperative, comfortable, no acute distress, alert, awake, ill appearing and other ( sedated on the vent, arousable with sedation vacation) Nutritional Appearance: obese Orientation/consciousness: patient oriented x3 HENMT: Head: Yes normal to inspection Eyes: Sclerae: sclerae normal EOM: EOMs intact bilaterally Neck: Neck: Yes no lymphadenopathy, Yes trachea midline, Yes supple and Yes no JVD Resp: Other: On ventilator Effort & Inspection: normal respiratory effort, decreased respiratory effort and no respiratory distress Auscultation: crackles ( Bibasilar), no rales, no wheezes and diminished lung sounds Cardio: Other: irregular, AFib Jugular venous distension: no JVD Rate: regular rate and tachycardic Rhythm: regular rhythm and abnormal rhythm irregularly irregular Heart sounds: S1 normal heart sound present, S2 normal heart sound present, no click, no gallops, no murmurs and no rubs GI: Other: abdomen is soft and without masses Palpation (GI): Soft to palpation, not firm, nontender, no guarding, not rigid and Other GI palpation findings present ( Nontender) Auscultation: normal bowel sounds Skin: General skin exam: no rashes or lesions noted Neuro: General: patient oriented x3 and no focal motor deficits Extrem: General: Yes normal to inspection, Yes no clubbing, cyanosis or edema, Yes no pedal edema, No clubbing, No cyanosis and Yes pedal edema ( 1+ bilateral) Psych: Appearance: grossly normal Objective Data Labs CBC & Chem 7: 06/24/21 06:33 06/25/21 06:13 Labs: Laboratory Results - last 24 hr 06/24/21 06/24/21 06/24/21 16:57 17:30 20:06 Sodium Potassium Chloride Carbon Dioxide Anion Gap BUN Creatinine Estim Creat Clear Calc Estimated GFR POC Glucose 182 H 180 H Random Glucose Calcium Magnesium Urine Color YELLOW Urine Appearance CLEAR Urine pH 5.5 Ur Specific [place] 1.025 Urine Protein TRACE Urine Glucose (UA) NEG Urine Ketones NEG Urine Blood 1+ H Urine Nitrite NEG Ur Leukocyte Esterase NEG Urine RBC 10-14 H Urine WBC 0-2 Ur Squamous Epith Cells TRACE Uric Acid Crystals TRACE Urine Bacteria TRACE Urine Mucus TRACE 06/25/21 06/25/21 06/25/21 06:13 07:48 11:05 Sodium 146 H Potassium 3.3 Chloride 105 Carbon Dioxide 27 Anion Gap 17 BUN 83 H Creatinine 1.58 H Estim Creat Clear Calc 53.3 Estimated GFR 43 POC Glucose 196 H 189 H Random Glucose 199 H Calcium 9.1 Magnesium 2.7 H Urine Color Urine Appearance Urine pH Ur Specific [place] Urine Protein Urine Glucose (UA) Urine Ketones Urine Blood Urine Nitrite Ur Leukocyte Esterase Urine RBC Urine WBC Ur Squamous Epith Cells Uric Acid Crystals Urine Bacteria Urine Mucus Microbiology Microbiology Results: Microbiology 06/19/21 14:54 Blood - Venous Blood Culture - Final No growth after 5 days. 06/19/21 14:55 Blood - Venous Blood Culture - Final No growth after 5 days. 06/09/21 17:15 Blood - Venous Blood Culture - Final Staphylococcus aureus 06/09/21 17:10 Blood - Venous Blood Culture - Final Staphylococcus aureus 06/08/21 23:11 Blood - Venous Blood Culture - Final Staphylococcus aureus 06/08/21 23:11 Blood - Venous Blood Culture - Final Staphylococcus aureus Procedures Date of Service Date of Service: 06/25/21 Assessment & Plan Assessment and plan (1) Acute respiratory distress syndrome (ARDS) due to COVID-19 virus: Status: Acute (2) Morbid obesity: Status: Acute (3) Acute hypoxemic respiratory failure: Status: Acute (4) GI bleed: Status: Acute (5) Hypotension: Status: Acute (6) Atrial fibrillation with rapid ventricular response: Status: Acute Assessment and Plan: 76yo M with HTN, HLD, DM2, BPH, obesity admitted with breakthrough Covid-19 infection, AF/RVR, MSSA bacteremia developed hemorrhagic shock from large GI bleed Over past 2-3 days developed ROBIN with incr Bun/cr ratio 1. ROBIN: renal labs improving off diuretics lab studies c/w renal hypoperfusion ( FENa < 1%) and incr Bun/Cr ratio; other poss ATN multifact AIN/AGN seem unlikely given clincial course but still need routine UA Obs r/o on U/S--no hydro 2. Incr Bun/Cr ratio: suspect IV vol depleted; other poss is UGIB but that prob has passed ? 3. Ques renal mass on U/S: will need eval in future with renal mass protocol CT or MRI REC: track UOP/renal func; avoid NToxins will follow clsoley with team Time Spent With Patient Time: Total time spent is greater than 50% in coordination of care (as documented) at patient's floor/unit and/or counseling patient: Progress Note: Quality Stroke Does the patient have a stroke diagnosis?: No
[2021-06-25] MEDS: dilTIAZem HCL 50 MG/10 ML VIAL 20 MG IVPUSH (11:47)
[2021-06-25] MEDS: dilTIAZem HCL 125 MG in 0.9 % Sodium Chloride 100 ML 10 MG IVCONT (11:49)
[2021-06-25 15:41] LABS: COVID-19 Test Negative (Negative); IDNOW Serial# 55D5AD1C
[2021-06-25 16:55] LABS: Glucose, Whole Blood 139 mg/dL (60-115)
[2021-06-25 20:37] LABS: Glucose, Whole Blood 143 mg/dL (60-115)
[2021-06-26] VITALS (7 sets, daily range): BP systolic 99–136; BP diastolic 50–61; PULSE 88–110; RESP 16–20; TEMP 36.3–36.9; O2SAT 93–100; BMI 34.3
[2021-06-26] MEDS: Omeprazole 40 MG CAPSULE.DR PO ×2 (05:36→16:21)
[2021-06-26] MEDS: dilTIAZem HCL 125 MG in 0.9 % Sodium Chloride 100 ML 15 MG IVCONT (06:09)
[2021-06-26 06:24] LABS: Glucose, Whole Blood 205 mg/dL (60-115)
[2021-06-26 06:43] LABS: Hematocrit 27.3 % (42.0-52.0); Hemoglobin 8.6 g/dl (14.0-18.0); Mean Corpuscular HGB Conc 31.5 g/dl (31.0-36.0); Mean Corpuscular Hemoglobin 30.2 pg (27.0-33.0); Mean Corpuscular Volume 95.8 fL (80.0-98.0); Mean Platelet Volume 11.8 fL (9.4-12.4); NRBC Pct Auto 0.2 /100WBC (0.0-0.2); Platelet Count 225 X10*3/uL (160-400); Red Blood Count 2.85 X10*6/uL (4.60-5.80); White Blood Count 16.6 X10*3/uL (4.8-10.8)
[2021-06-26 06:59] LABS: B Type Natriuretic Peptide 2211 pg/mL (<100)
[2021-06-26 07:19] LABS: Anion Gap 22 (12-20); Blood Urea Nitrogen 84 mg/dL (9-16); Calcium 8.8 mg/dL (8.4-10.2); Carbon Dioxide 22 mmol/L (22-29); Chloride 105 mmol/L (96-108); Creatinine Clr Calc Pharmacy 53.2; Estimated Glomerular Filt Rate 43; Glucose Random 227 mg/dL (60-115); Potassium 3.4 mmol/L (3.3-5.1); Sodium 146 mmol/L (135-145)
[2021-06-26] MEDS: Insulin Lispro 100 UNIT/ML 3 ML VIAL SUBCUT ×4 (07:28→22:19)
[2021-06-26] MEDS: Metoprolol Tartrate 100 MG TABLET PO ×2 (09:27→17:40)
[2021-06-26] MEDS: Finasteride 5 MG TABLET PO (09:27)
[2021-06-26] MEDS: 0.9 % Sodium Chloride Flush 3 ML SYRINGE IVFLUSH ×3 (09:28→22:19)
[2021-06-26 11:10] LABS: Glucose, Whole Blood 229 mg/dL (60-115)
[2021-06-26] MEDS: dilTIAZem HCL 60 MG TABLET PO ×3 (11:30→22:18)
[2021-06-26] MEDS: Digoxin 0.25 MG TABLET PO ×2 (11:38→16:21)
--- NOTE | 2021-06-26 11:44 | PM.PNNEP ---
Subjective Subjective Date of Service: 06/26/21 Principal diagnosis: robin Interval history: Seen and examined, events noted Physical Exam Vital Signs: Vital Signs: Last Vital Signs Temp 97.6 F 06/26/21 11:26 Pulse 88 06/26/21 11:26 Resp 20 06/26/21 11:26 BP 99/52 L 06/26/21 11:26 Pulse Ox 100 06/26/21 11:26 Oxygen Flow Rate 2 06/25/21 10:00 BMI result Body Mass Index 34.3 Const: Other: Gen:? Awake alert, in no acute distress HEENT: sclera anicteric, moist mucus membranes Neck: supple, LIJ CVC Lungs: diminished bilateral bases, no respiratory distress Heart: irregular rate and rhythm, no murmurs Abd: soft, non-tender, non-distended Ext: no edema Skin: warm/well-perfused Neuro: alert and oriented x3, no focal findings Psych: appropriate affect ? General: cooperative, comfortable, no acute distress, alert, awake, ill appearing and other ( sedated on the vent, arousable with sedation vacation) Nutritional Appearance: obese Orientation/consciousness: patient oriented x3 HENMT: Head: Yes normal to inspection Eyes: Sclerae: sclerae normal EOM: EOMs intact bilaterally Neck: Neck: Yes no lymphadenopathy, Yes trachea midline, Yes supple and Yes no JVD Resp: Other: On ventilator Effort & Inspection: normal respiratory effort, decreased respiratory effort and no respiratory distress Auscultation: crackles ( Bibasilar), no rales, no wheezes and diminished lung sounds Cardio: Other: irregular, AFib Jugular venous distension: no JVD Rate: regular rate and tachycardic Rhythm: regular rhythm and abnormal rhythm irregularly irregular Heart sounds: S1 normal heart sound present, S2 normal heart sound present, no click, no gallops, no murmurs and no rubs GI: Other: abdomen is soft and without masses Palpation (GI): Soft to palpation, not firm, nontender, no guarding, not rigid and Other GI palpation findings present ( Nontender) Auscultation: normal bowel sounds Skin: General skin exam: no rashes or lesions noted Neuro: General: patient oriented x3 and no focal motor deficits Extrem: General: Yes normal to inspection, Yes no clubbing, cyanosis or edema, Yes no pedal edema, No clubbing, No cyanosis and Yes pedal edema ( 1+ bilateral) Psych: Appearance: grossly normal Objective Data Labs CBC & Chem 7: 06/26/21 06:16 06/26/21 06:16 Labs: Laboratory Results - last 24 hr 06/25/21 06/25/21 06/25/21 14:50 16:37 20:23 WBC RBC Hgb Hct MCV MCH MCHC RDW Plt Count MPV Absolute Nucleated RBC Nucleated RBC % (auto) Sodium Potassium Chloride Carbon Dioxide Anion Gap BUN Creatinine Estim Creat Clear Calc Estimated GFR POC Glucose 139 H 143 H Random Glucose Calcium B-Natriuretic Peptide COVID-19 (JOSE ALBERTO) Negative COVID-19 [employer] Com See Note 06/26/21 06/26/21 06/26/21 06:16 06:16 06:16 WBC 16.6 H RBC 2.85 L Hgb 8.6 L Hct 27.3 L MCV 95.8 MCH 30.2 MCHC 31.5 RDW 17.0 H Plt Count 225 D MPV 11.8 Absolute Nucleated RBC 0.040 H Nucleated RBC % (auto) 0.2 Sodium 146 H Potassium 3.4 Chloride 105 Carbon Dioxide 22 Anion Gap 22 H BUN 84 H Creatinine 1.57 H Estim Creat Clear Calc 53.2 Estimated GFR 43 POC Glucose Random Glucose 227 H Calcium 8.8 B-Natriuretic Peptide 2211 H COVID-19 (JOSE ALBERTO) COVID-19 [employer] Com 06/26/21 06/26/21 06:20 10:57 WBC RBC Hgb Hct MCV MCH MCHC RDW Plt Count MPV Absolute Nucleated RBC Nucleated RBC % (auto) Sodium Potassium Chloride Carbon Dioxide Anion Gap BUN Creatinine Estim Creat Clear Calc Estimated GFR POC Glucose 205 H 229 H Random Glucose Calcium B-Natriuretic Peptide COVID-19 (JOSE ALBERTO) COVID-19 Clin Com Microbiology Microbiology Results: Microbiology 06/19/21 14:54 Blood - Venous Blood Culture - Final No growth after 5 days. 06/19/21 14:55 Blood - Venous Blood Culture - Final No growth after 5 days. 06/09/21 17:15 Blood - Venous Blood Culture - Final Staphylococcus aureus 06/09/21 17:10 Blood - Venous Blood Culture - Final Staphylococcus aureus 06/08/21 23:11 Blood - Venous Blood Culture - Final Staphylococcus aureus 06/08/21 23:11 Blood - Venous Blood Culture - Final Staphylococcus aureus Procedures Date of Service Date of Service: 06/26/21 Assessment & Plan Assessment and plan (1) Acute respiratory distress syndrome (ARDS) due to COVID-19 virus: Status: Acute (2) Morbid obesity: Status: Acute (3) Acute hypoxemic respiratory failure: Status: Acute (4) GI bleed: Status: Acute (5) Hypotension: Status: Acute (6) Atrial fibrillation with rapid ventricular response: Status: Acute Assessment and Plan: 76yo M with HTN, HLD, DM2, BPH, obesity admitted with breakthrough Covid-19 infection, AF/RVR, MSSA bacteremia developed hemorrhagic shock from large GI bleed 1. ROBIN: renal labs improving off diuretics lab studies c/w renal hypoperfusion ( FENa < 1%) and incr Bun/Cr ratio; other poss ATN multifact AIN/AGN seem unlikely given clincial course but still need routine UA Obs r/o on U/S--no hydro 2. Incr Bun/Cr ratio: suspect IV vol depleted; other poss is UGIB but that prob has passed ? 3. Ques renal mass on U/S: will need eval in future with renal mass protocol CT or MRI REC: track UOP/renal func; avoid NToxins if needs iv access for ABX prefer Plaza over PIC--but if pic placed then use dominant arm will follow clsoley with team Time Spent With Patient Time: Total time spent is greater than 50% in coordination of care (as documented) at patient's floor/unit and/or counseling patient: Progress Note: Quality Stroke Does the patient have a stroke diagnosis?: No
--- NOTE | 2021-06-26 12:47 | MHC.SL.SWA ---
Speech Pathologist Impression: Risk of Aspiration Risk of Aspiration Due to: Hx of Recent Extubation Dysphasia Diet Status: Upgrade Liquid Consistency and Strategies for Safe Swallow: Liquid Intake Recommendation: Thin Liquid Intake Strategies: Small Sips Solid Food Consistency: Dietary Recommendations: Regular Additional Modifications to Solid Foods: No clinical s/s of aspiration with PO trials. Recommend REGULAR solids, THIN liquids, pills WHOLE in LIQUID. Patient able to self-feed, recommend intermittent supervision to ensure aspiration precautions. BUILDINGS AND GROUNDS DIRECTOR to f/u 1x time to monitor tolerance. Oral Medication Intake: Whole with Liquid Compensatory Strategies and Precautions to be Taken for Safe Swallow: Sitting Upright (90 deg) Small Bites and Sips Alternate Liquids/Solids Rate of Ingestion Change Supervision While Eating and Drinking for Safe Swallow: Intermittent Supervision Swallowing Recommended Treatments: Compens. Strategy Educat. Recommendation for Speech: Inpatient Speech Therapy Comment: Frequency/Duration: 1 f/u Date Range for Service Req: Timeline to reassess: Microsoft Application Developer Clinican/Clinical Fellow: No Supervisory Statement: I have reviewed and agree with the student/clinical fellow's documentation: N/A Speech Language Pathologist: Evie Cedeño M.A., CCC-BUILDINGS AND GROUNDS DIRECTOR
--- NOTE | 2021-06-26 14:33 | MHC.CLN ---
F/U PO INTAKE 0-25% DIET RX: 2000DM-APPROPRIATE BILINGUAL OFFICE ASSISTANT REC. REGULAR SOLIDS WITH THIN LIQ. SEE NOTE 06/26 PT RECEIVING GLUCERNA TID TO INCREASE KCALS AND PROMOTE WOUND HEALING SUPP TO PROVIDE 711KCALS, 30G PROTEIN CONTINUE TO MONITOR PO INTAKE CLOSELY
--- NOTE | 2021-06-26 15:30 | P.PNID_ITS ---
Subjective Subjective Date of Service: 06/26/21 Interval History: he has had increased creatinine and possible Nafcillin reason he has echo no vegetation Critical Care Time (minutes): 15 Objective Data Labs CBC & Chem 7: 07/02/21 05:25 07/02/21 15:45 Labs: Laboratory Results - last 24 hr 06/25/21 06/25/21 06/25/21 14:50 16:37 20:23 WBC RBC Hgb Hct MCV MCH MCHC RDW Plt Count MPV Absolute Nucleated RBC Nucleated RBC % (auto) Sodium Potassium Chloride Carbon Dioxide Anion Gap BUN Creatinine Estim Creat Clear Calc Estimated GFR POC Glucose 139 H 143 H Random Glucose Calcium B-Natriuretic Peptide COVID-19 ([facility]) Negative COVID-19 Clin Com See Note 06/26/21 06/26/21 06/26/21 06:16 06:16 06:16 WBC 16.6 H RBC 2.85 L Hgb 8.6 L Hct 27.3 L MCV 95.8 MCH 30.2 MCHC 31.5 RDW 17.0 H Plt Count 225 D MPV 11.8 Absolute Nucleated RBC 0.040 H Nucleated RBC % (auto) 0.2 Sodium 146 H Potassium 3.4 Chloride 105 Carbon Dioxide 22 Anion Gap 22 H BUN 84 H Creatinine 1.57 H Estim Creat Clear Calc 53.2 Estimated GFR 43 POC Glucose Random Glucose 227 H Calcium 8.8 B-Natriuretic Peptide 2211 H COVID-19 ([facility]) COVID-19 Clin Com 06/26/21 06/26/21 06:20 10:57 WBC RBC Hgb Hct MCV MCH MCHC RDW Plt Count MPV Absolute Nucleated RBC Nucleated RBC % (auto) Sodium Potassium Chloride Carbon Dioxide Anion Gap BUN Creatinine Estim Creat Clear Calc Estimated GFR POC Glucose 205 H 229 H Random Glucose Calcium B-Natriuretic Peptide COVID-19 ([facility]) COVID-19 Clin Com Microbiology Microbiology Results: Microbiology 06/19/21 14:54 Blood - Venous Blood Culture - Final No growth after 5 days. 06/19/21 14:55 Blood - Venous Blood Culture - Final No growth after 5 days. 06/09/21 17:15 Blood - Venous Blood Culture - Final Staphylococcus aureus 06/09/21 17:10 Blood - Venous Blood Culture - Final Staphylococcus aureus 06/08/21 23:11 Blood - Venous Blood Culture - Final Staphylococcus aureus 06/08/21 23:11 Blood - Venous Blood Culture - Final Staphylococcus aureus Physical Exam Verdana 4l Vital Signs: Verdana 4d Verdana 4d Vital Signs: Verdana 4d Verdana 4Bd Last Vital Signs Verdana 4d Accounts Payable Analyst New 4d Accounts Payable Analyst New 4d Temp 97.6 F 06/26/21 11:26 Accounts Payable Analyst New 4d Pulse 88 06/26/21 11:26 Accounts Payable Analyst New 4d Resp 20 06/26/21 11:26 BP 99/52 L 06/26/21 11:26 Pulse Ox 100 06/26/21 11:26 Oxygen Flow Rate 2 06/26/21 10:00 BMI result Body Mass Index 34.3 Const: General: cooperative Eyes: General: appearance normal, both eyes and all related structures Resp: Effort & Inspection: normal respiratory effort Cardio: Rate: regular rate Rhythm: regular rhythm GI: Palpation (GI): Soft to palpation and nontender Assessment and Plan Assessment and plan (1) Bacteremia due to Gram-positive bacteria: Status: Acute Assessment and Plan: He has creatinine increase possibly from Nafcillin Plan Kefzol four weeks total antibiotics Time Spent With Patient Time: Total time spent is greater than 50% in coordination of care (as documented) at patient's floor/unit and/or counseling patient: Time with patient: 15 - 24 minutes
--- NOTE | 2021-06-26 15:55 | P.PNIM_ITS ---
Subjective Subjective Date of Service: 06/26/21 Interval History: Tele monitor showed AFib with RVR overnight, currently on IV Cardizem drip, patient denies chest pain, no shortness of breath, no palpitations, no other acute issues overnight Review of Systems Review of Systems: Yes all other systems are reviewed and are negative Physical Exam Vital Signs: Vital Signs: Last Vital Signs Temp 97.6 F 06/26/21 11:26 Pulse 88 06/26/21 11:26 Resp 20 06/26/21 11:26 BP 99/52 L 06/26/21 11:26 Pulse Ox 100 06/26/21 11:26 Oxygen Flow Rate 2 06/26/21 10:00 BMI result Body Mass Index 34.3 Const: Other: Gen: Awake alert, in no acute distress HEENT: sclera anicteric, moist mucus membranes Neck: supple Lungs: clear to auscultation bilaterally Heart: irregular, no murmurs Abd: soft, non-tender, non-distended Ext: no edema Skin: warm/well-perfused Neuro: alert and oriented x3, no focal findings Psych: appropriate affect Objective Data Active Medications Digoxin (Digoxin 0.25 Mg Tablet) 0.25 mg PO Q6H [facility] Stop: 06/26/21 17:16 Last Admin: 06/26/21 11:38 Dose: 0.25 mg Documented by: JOSR Diltiazem HCl (Diltiazem Hcl 60 Mg Tablet) 60 mg PO QID [facility]; Protocol Last Admin: 06/26/21 11:30 Dose: 60 mg Documented by: JOSR Finasteride (Finasteride 5 Mg Tablet) 5 mg PO DAILY [facility] Last Admin: 06/26/21 09:27 Dose: 5 mg Documented by: JOSR Cefazolin Sodium 1 gm/ Sodium (Chloride) 50 mls @ 100 mls/hr IV Q12H [facility] Insulin Human Lispro (Insulin Lispro 100 Unit/Ml 3 Ml Vial) 0 unit SUBCUT QIDACHS [facility]; Protocol Last Admin: 06/26/21 11:30 Dose: 4 unit Documented by: JOSR Metoprolol Tartrate (Metoprolol Tartrate 100 Mg Tablet) 100 mg PO BID [facility]; Protocol Last Admin: 06/26/21 09:27 Dose: 100 mg Documented by: JOSR Omeprazole (Omeprazole 40 Mg Randall.) 40 mg PO BID@0630,1630 [facility] Last Admin: 06/26/21 05:36 Dose: 40 mg Documented by: HOLLAND Sodium Chloride (0.9 % Sodium Chloride Flush 3 Ml Syringe) 3 ml IVFLUSH QSHIFT [facility] Last Admin: 06/26/21 09:28 Dose: 3 ml Documented by: JOSR Labs CBC & Chem 7: 06/26/21 06:16 06/26/21 06:16 Labs: Laboratory Results - last 24 hr 06/25/21 06/25/21 06/26/21 16:37 20:23 06:16 MCV 95.8 MCH 30.2 MCHC 31.5 RDW 17.0 H Plt Count 225 D MPV 11.8 Absolute Nucleated RBC 0.040 H Nucleated RBC % (auto) 0.2 Anion Gap Estim Creat Clear Calc Estimated GFR POC Glucose 139 H 143 H Random Glucose Calcium B-Natriuretic Peptide 06/26/21 06/26/21 06/26/21 06:16 06:16 06:20 MCV MCH MCHC RDW Plt Count MPV Absolute Nucleated RBC Nucleated RBC % (auto) Anion Gap 22 H Estim Creat Clear Calc 53.2 Estimated GFR 43 POC Glucose 205 H Random Glucose 227 H Calcium 8.8 B-Natriuretic Peptide 2211 H 06/26/21 10:57 MCV MCH MCHC RDW Plt Count MPV Absolute Nucleated RBC Nucleated RBC % (auto) Anion Gap Estim Creat Clear Calc Estimated GFR POC Glucose 229 H Random Glucose Calcium B-Natriuretic Peptide Assessment and Plan (1) Acute respiratory distress syndrome (ARDS) due to COVID-19 virus: Status: Acute (2) Morbid obesity: Status: Acute (3) Acute hypoxemic respiratory failure: Status: Acute (4) GI bleed: Status: Acute (5) Hypotension: Status: Acute (6) Atrial fibrillation with rapid ventricular response: Status: Acute Assessment and Plan: 76yo M with HTN, HLD, DM2, BPH, obesity admitted with breakthrough Covid-19 infection, AF/RVR, MSSA bacteremia developed hemorrhagic shock from large GI bleed and transferred to ICU EGD 06/[address] Mae under GETA: multiple duodenal ulcers, active bleeding from a visible vessel in a 15x20 mm ulcer, bleeding controlled with 3ml epinephrine and gold probe cautery remained intubated after EGD, required norepinephrine and 2u PRBCs extubated 06/19/20, stepped down to IMC 06/20 # AF/RVR - persistent tachycardia, will place on by mouth Cardizem 60 q.6 hours and weaned IV diltiazem, will give digoxin 0.25 mg x2 And reassess, continue metoprolol tartrate 100 mg bid, case discussed with Dr. Murray - anticoagulation deferred for at least a month pending GI f/u and likely repeat C-scope to ensure healing of duodenal ulcers # MSSA bacteremia, / BCx from 06/08-06/09 - unclear source.? repeat BCx from 06/19/21 negative times 48 hours, s/p IV nafcillin, changed to IV cefazolin due to rising creatinine, on d#8 as per ID , no vegetations on TTE?06/12/21, will have Plaza placed tomorrow for prolong iv antibiotics. # hemorrhagic shock and anemia due to GI blood loss from duodenal ulcer - continue bid PPI - tolerating regular diet, hematocrit dropped but stable follow CBC, guaiac+ from recent GIB - will need GI follow-up for repeat EGD # Covid-19 pneumonia with ARDS and acute hypoxic respiratory failure - continue to wean oxygen as tolerated, not given steroids due to duodenal ulcer, currently on 2L O2 # dysphagia s/p extubation - seen by speech they recommend clear liquids and regular solids # pulmonary edema # acute/chronic HFpEF - likely iatrogenic, improved with diuresis, diuretics on hold due to rising creatinine; patient appears euvolemic and he is not on home diuretics, but noted to have significantly elevated BNP will repeat chest Xray. # ROBIN - likely ischemic ATN vs excess diuresis; continues to improve - serum creatinine then increased, likely due to nafcillin + diuresis; improved with switching to cefazolin and discontinuing diuresis - Nephrology following # thrombocytopenia - resolved # prostatism - continue finasteride # DM2 - as on glipizide 10 mg by mouth b.i.d. and pioglitazone once daily, continue diabetic diet and correction-dose lispro # VTE ppx - SCDs # dispo - STR placement pending, will recheck Covid-19 [facility]O once bed available Quality Stroke Does the patient have a stroke diagnosis?: No VTE Prior VTE?: No VTE Risk Level:: Medical - moderate - high VTE Device Contraindication: Treatment Not Indicated VTE Drug Contraindication: Treatment Not Indicated
[2021-06-26 16:49] LABS: Glucose, Whole Blood 194 mg/dL (60-115)
--- NOTE | 2021-06-26 17:33 | PM.PNCARD ---
Subjective Subjective Date of Service: 06/26/21 Principal diagnosis: Atrial fibrillation Interval history: I was requested to see Dyllan in cardiology follow-up today because of persistent atrial fibrillation with elevated heart rate. He denies palpitation. Oxygenation has not worsened. Still using supplemental oxygen. Heart rate when I saw the monitor was in the 90s in the morning. Subsequently running overnight into 130s. Currently on Cardizem drip as well as receiving metoprolol. His BNP is increase in the 2000 range. Review of Systems Review of Systems Yes all other systems are reviewed and are negative Physical Exam Vital Signs: Last Vital Signs Temp 98.4 F 06/26/21 15:57 Pulse 110 H 06/26/21 15:57 Resp 18 06/26/21 15:57 BP 128/60 06/26/21 15:57 Pulse Ox 93 06/26/21 15:57 Oxygen Flow Rate 2 06/26/21 10:00 BMI result Body Mass Index 34.3 Resp Effort & Inspection: normal respiratory effort Auscultation: diminished lung sounds Cardio Rate: tachycardic Rhythm: abnormal rhythm irregularly irregular Heart sounds: S1 normal heart sound present, S2 normal heart sound present, no click and no gallops GI Auscultation: normal bowel sounds Neuro General: no focal motor deficits Objective Labs and Meds Result diagrams: 06/26/21 06:16 06/26/21 06:16 Lab results: Laboratory Results - last 24 hr 06/25/21 06/26/21 06/26/21 20:23 06:16 06:16 WBC 16.6 H RBC 2.85 L Hgb 8.6 L Hct 27.3 L MCV 95.8 MCH 30.2 MCHC 31.5 RDW 17.0 H Plt Count 225 D MPV 11.8 Absolute Nucleated RBC 0.040 H Nucleated RBC % (auto) 0.2 Sodium 146 H Potassium 3.4 Chloride 105 Carbon Dioxide 22 Anion Gap 22 H BUN 84 H Creatinine 1.57 H Estim Creat Clear Calc 53.2 Estimated GFR 43 POC Glucose 143 H Random Glucose 227 H Calcium 8.8 B-Natriuretic Peptide 06/26/21 06/26/21 06/26/21 06:16 06:20 10:57 WBC RBC Hgb Hct MCV MCH MCHC RDW Plt Count MPV Absolute Nucleated RBC Nucleated RBC % (auto) Sodium Potassium Chloride Carbon Dioxide Anion Gap BUN Creatinine Estim Creat Clear Calc Estimated GFR POC Glucose 205 H 229 H Random Glucose Calcium B-Natriuretic Peptide 2211 H 06/26/21 16:42 WBC RBC Hgb Hct MCV MCH MCHC RDW Plt Count MPV Absolute Nucleated RBC Nucleated RBC % (auto) Sodium Potassium Chloride Carbon Dioxide Anion Gap BUN Creatinine Estim Creat Clear Calc Estimated GFR POC Glucose 194 H Random Glucose Calcium B-Natriuretic Peptide Imaging Radiologist's impression: Impressions Chest X-Ray 06/26/21 16:29 IMPRESSION: Enlarged cardiac silhouette. Bilateral perihilar and left lower lobe airspace disease and small left pleural effusion left greater than right. Findings are again questionable for CHF. This is similar to 06/17/2021 exam. Progress Note: A&P Assessment and plan (1) Atrial fibrillation with rapid ventricular response: Status: Acute Assessment and Plan: Atrial fibrillation persistent rapid ventricular response question related to congestive heart failure question related to anemia. Continue IV Cardizem drip and transition to p.o. Cardizem. Continue metoprolol. Give 2 doses of IV digoxin 0.25 mg IV every 6 hours x2 doses. Repeat chest x-ray. May require diuresis based on the findings. Also would consider repeating echocardiogram limited to assess for LV systolic function RV systolic pressure. May require gentle diuresis. Will follow with you Fall Risk Details Current Medications: Current Medications Diltiazem HCl (Diltiazem Hcl 60 Mg Tablet) 60 mg PO QID [facility]; Protocol Last Admin: 06/26/21 16:21 Dose: 60 mg Documented by: Finasteride (Finasteride 5 Mg Tablet) 5 mg PO DAILY [facility] Last Admin: 06/26/21 09:27 Dose: 5 mg Documented by: Cefazolin Sodium 1 gm/ Sodium (Chloride) 50 mls @ 100 mls/hr IV Q12H [facility] Insulin Human Lispro (Insulin Lispro 100 Unit/Ml 3 Ml Vial) 0 unit SUBCUT QIDACHS [facility]; Protocol Last Admin: 06/26/21 11:30 Dose: 4 unit Documented by: Metoprolol Tartrate (Metoprolol Tartrate 100 Mg Tablet) 100 mg PO BID [facility]; Protocol Last Admin: 06/26/21 09:27 Dose: 100 mg Documented by: Omeprazole (Omeprazole 40 Mg Capsule.Dr) 40 mg PO BID@0630,1630 [facility] Last Admin: 06/26/21 16:21 Dose: 40 mg Documented by: Sodium Chloride (0.9 % Sodium Chloride Flush 3 Ml Syringe) 3 ml IVFLUSH QSHIFT [facility] Last Admin: 06/26/21 16:23 Dose: 3 ml Documented by: Time Spent With Patient Time: Total time spent is greater than 50% in coordination of care (as documented) at patient's floor/unit and/or counseling patient: Time with patient: 15 - 24 minutes Progress Note: Quality Stroke Does the patient have a stroke diagnosis?: No Procedures Date of Service Date of Service: 06/26/21
[2021-06-26 20:09] LABS: Glucose, Whole Blood 220 mg/dL (60-115)
[2021-06-27] VITALS (8 sets, daily range): BP systolic 115–151; BP diastolic 58–73; PULSE 66–132; RESP 18–20; TEMP 36.3–37.2; O2SAT 92–99
--- NOTE | 2021-06-27 | ECG_ITS ---
Test Reason : rhythm check Blood Pressure : / mmHG Vent. Rate : 069 BPM Atrial Rate : 069 BPM P-R Int : 186 ms QRS Dur : 106 ms QT Int : 440 ms P-R-T Axes : 049 029 195 degrees QTc Int : 471 ms Normal sinus rhythm Possible Left atrial enlargement ST & T wave abnormality, consider inferior ischemia ST & T wave abnormality, consider anterolateral ischemia Prolonged QT Abnormal ECG When compared with ECG of 11-JUN-2021 17:12, Sinus rhythm has replaced Atrial fibrillation Incomplete left bundle branch block is no longer Present Non-specific change in ST segment in Lateral leads T wave inversion now evident in Anterior leads Referred By: Hoa Lan Electronically Signed By:NATALIIA ARAIZA MD
[2021-06-27 00:33] LABS: Glucose, Whole Blood 185 mg/dL (60-115)
[2021-06-27] MEDS: Omeprazole 40 MG CAPSULE.DR PO ×2 (05:10→15:41)
[2021-06-27 06:21] LABS: Glucose, Whole Blood 189 mg/dL (60-115)
[2021-06-27 07:33] LABS: Glucose, Whole Blood 210 mg/dL (60-115)
[2021-06-27] MEDS: dilTIAZem HCL 60 MG TABLET PO ×4 (09:12→21:44)
[2021-06-27] MEDS: 0.9 % Sodium Chloride Flush 3 ML SYRINGE IVFLUSH ×2 (09:12→15:41)
[2021-06-27] MEDS: Metoprolol Tartrate 100 MG TABLET PO ×2 (09:12→21:44)
--- NOTE | 2021-06-27 09:30 | CA_ITS ---
Transthoracic Echocardiogram Patient (Last, First, Middle): Dyllan Slade E Gender: Male Date of : 1945 Age: 76 Procedure Date: 06/27/2021 Procedure Type: Transthoracic Echocardiogram Location: [facility] [place] Height: 152.4 cm Weight: 114.76 kg BSA: 2.06 m2 Heart Rate: bpm BP: 118 / 65 mmHg Curriculum Coach: TRELL Referring MD: Candelario Rodriguez MD Retail Department Reset: Candelario Rodriguez MD Symptoms: Elevated BNP, evaluate LV systolic function and RV systolic Study Quality: Fair ECG Rhythm: Sinus Conclusions: - 1. Normal LV systolic function with grade 2 diastolic dysfunction 2. Mildly dilated right ventricle with normal systolic function 3. Mildly to moderately elevated right ventricular systolic pressure 4. Small circumferential pericardial effusion Findings Left Ventricle Normal left ventricular cavity size. The left ventricular systolic function is normal. The visually estimated ejection fraction is between 55-60%. Spectral Doppler is indicative of a pseudonormal filling pattern. E/E prime ratio is >15, consistent with elevated filling pressures. Evidence suggests grade II (moderate) diastolic dysfunction. Right Ventricle Mildly increased right ventricular cavity size. There is normal right ventricular systolic function. Atria The left atrium is normal in size. Interatrial shunt cannot be excluded. The right atrium is normal in size. Aortic Valve The aortic valve was not well visualized. There is moderate calcification of the aortic valve. Pulmonic Valve There is mild pulmonic valve regurgitation. Tricuspid Valve There is mild tricuspid valve regurgitation. Mildly elevated right atrial pressure. Mild to moderate pulmonary hypertension is present. Pericardium/Pleural There is a small circumferential pericardial effusion. Prior Study Comparison Changes noted compared to prior study dated: 06/12/2021. RV SYSTOLIC PRESSURE IS MILDLY TO MODERATELY ELEVATED Measurements Mitral Valve MV Pk E: 1.11 MV PK A: 0.84 MV Decel Time: 148.00 E/A: 1.30 E'Lateral: 6.96 E'Medial: 4.46 E/E' Med: 24.90 E/E' Lat: 15.90 PHT: 43.00 MVA PHT: 5.12 Decel [place]: 7.47 Diastolic Function MV Pk E: 1.11 MV Pk A: 0.84 E/A: 1.30 E'Medial: 4.46 E/E' Med: 24.90 E' Laterial: 6.96 E/E' Lat: 15.90 Right Ventricle TAPSE (mm): 25.90 TVS' Jose Francisco: 14.40 Tricuspid Valve TR Pk Jose Francisco: 3.14 TR Pk Grad: 39.00 RA Press: 8.00 RVSP: 47.00 Updated in Other Vendor System with Status of Final Candelario Rodriguez MD electronically signed on 06/27/2021 3:28:46 PM with status of Final
--- NOTE | 2021-06-27 09:48 | PM.PNCARD ---
Subjective Subjective Date of Service: 06/27/21 <PHYLLIS Streeter - Last Filed: 06/27/21 15:58> 06/27/21 <Candelario Rodriguez MD - Last Filed: 06/27/21 16:30> Principal diagnosis: Atrial fibrillation <PHYLLIS Streeter - Last Filed: 06/27/21 15:58> Interval history: Cardiology follow up for Afib, CHF. Seen at 1100. Today he reports that he is feeling a little better. Breathing comfortable at rest. Wearing O2 with nasal cannula. No cough. No chest pains, palpitations, dizziness. Has some mild swelling right lower leg. Slept with HOB elevated at around 30 degree during night. Having bedside limited echo done at time of my visit. <PHYLLIS Streeter - Last Filed: 06/27/21 15:58> Review of Systems Review of Systems as above <PHYLLIS Streeter - Last Filed: 06/27/21 15:58> Yes all other systems are reviewed and are negative <PHYLLIS Streeter - Last Filed: 06/27/21 15:58> Physical Exam Vital Signs: Last Vital Signs Temp 97.6 F 06/27/21 07:50 Pulse 132 H 06/27/21 09:32 Resp 20 06/27/21 07:50 BP 118/68 06/27/21 09:32 Pulse Ox 96 06/27/21 09:32 Oxygen Flow Rate 2 06/26/21 10:00 BMI result Body Mass Index 34.3 <PHYLLIS Streeter - Last Filed: 06/27/21 15:58> Const General: cooperative, no acute distress, alert and awake <PHYLLIS Streeter - Last Filed: 06/27/21 15:58> Orientation/consciousness: patient oriented x3 <PHYLLIS Streeter Last Filed: 06/27/21 15:58> Neck Neck: Yes normal visual inspection and Yes no JVD <PHYLLIS Streeter Last Filed: 06/27/21 15:58> Resp Effort & Inspection: normal respiratory effort, able to speak in complete sentences and not labored <PHYLLIS Streeter - Last Filed: 06/27/21 15:58> Auscultation: clear to auscultation bilaterally (dim posterior lower lobes), no rhonchi and no wheezes <Hoa Lan NPC - Last Filed: 06/27/21 15:58> Cardio Rate: regular rate <Hoa Lan NP - Last Filed: 06/27/21 15:58> Rhythm: regular rhythm <Hoa Edyta [facility] - Last Filed: 06/27/21 15:58> Heart sounds: S1 normal heart sound present and S2 normal heart sound present <Hoa Edyta [facility] - Last Filed: 06/27/21 15:58> Peripheral pulses: Peripheral pulses 2+ throughout <Hoa Edyta [facility] - Last Filed: 06/27/21 15:58> GI Inspection: Yes normal to inspection <Hoa Edyta [facility] - Last Filed: 06/27/21 15:58> Neuro General: patient oriented x3 <Hoa Lan [facility] - Last Filed: 06/27/21 15:58> Extrem Other: +1 swelling of right lower leg <Hoa Lan [facility] - Last Filed: 06/27/21 15:58> Objective Labs and Meds Result diagrams: : 06/26/21 06:16 06/26/21 06:16 <Hoa Lan SPOT MACHINE OPERATOR - Last Filed: 06/27/21 15:58> Lab results: Laboratory Results - last 24 hr 06/26/21 06/26/21 06/26/21 10:57 16:42 19:48 POC Glucose 229 H 194 H 220 H 06/27/21 06/27/21 06/27/21 00:29 06:16 07:22 POC Glucose 185 H 189 H 210 H <Hoa Lan NP - Last Filed: 06/27/21 15:58> Imaging Radiologist's impression: Impressions Chest X-Ray 06/26/21 16:29 IMPRESSION: Enlarged cardiac silhouette. Bilateral perihilar and left lower lobe airspace disease and small left pleural effusion left greater than right. Findings are again questionable for CHF. This is similar to 06/17/2021 exam. <PHYLLIS Streeter - Last Filed: 06/27/21 15:58> Progress Note: A&P Assessment and plan (1) Atrial fibrillation with rapid ventricular response: Status: Acute <PHYLLIS Streeter - Last Filed: 06/27/21 15:58> Assessment and Plan: New finding of persistent afib this admission, in setting of acute illness with COVID, resp failure, then GIB. . Has been treated with heart rate control. Currently on Metoprolol and Diltiazem. He did convert to SR last night for about 4 hrs then went back into afib for another 4-5 hrs then again converted back to SR, around 8 am this am which is holding. Tele currently shows SR, rates 70-80s. No report of heart palpitations. Will obtain EKG today. Limited echo is pending. Once results reviewed by Dr Rodriguez, we will determine if antiarrythmic can be started on him. He was initially started on anticoagulation, then developed GIB this admit. Followed by GI. Still has anemia, Hgb 8.6 today. Stool occult blood + on 06/24/21. Continue to hold anticoagulation. Ongoing tele monitoring <PHYLLIS Streeter - Last Filed: 06/27/21 15:58> New finding of persistent afib this admission, in setting of acute illness with COVID, resp failure, then GIB. . Has been treated with heart rate control. Currently on Metoprolol and Diltiazem. He did convert to SR last night for about 4 hrs then went back into afib for another 4-5 hrs then again converted back to SR, around 8 am this am which is holding. Tele currently shows SR, rates 70-80s. No report of heart palpitations. Will obtain EKG today. Limited echo is pending. Once results reviewed by Dr Rodriguez, we will determine if antiarrythmic can be started on him. He was initially started on anticoagulation, then developed GIB this admit. Followed by GI. Still has anemia, Hgb 8.6 today. Stool occult blood + on 06/24/21. Continue to hold anticoagulation. Ongoing tele monitoring Case discussed with Hoa Lan. Patient converted to sinus rhythm. Limited choice of antiarrhythmic drug. Continue metoprolol therapy. . Continue monitor full disclosure. Choice of antiarrhythmic drug therapy is limited but likelihood of recurrence is high. If after diuresis his fluid status looks adequate may consider Multaq 400 mg b.i.d. at which point digoxin will be discontinued given his creatinine in clearance being high. Avoid oral anticoagulation due to recent major GI bleed till he is cleared by GI for oral anticoagulation therapy. Remains at high risk for thromboembolic complication <Candelario Rodriguez MD - Last Filed: 06/27/21 16:30> (2) Elevated brain natriuretic peptide (BNP) level: Status: Acute <PHYLLIS Streeter - Last Filed: 06/27/21 15:58> Assessment and Plan: BNP elevated this admit, higher in last week. BNP was 2211 yesterday. CXR yest shows bilateral perihilar, LL airspace finding, small left effusion suggesting CHF. Echo done on 06/12 showed EF 60-65%, mod increase in RV size, normal RV function. Cr elevated, up to 1.92 this admit and down to 1.57 today. On exam he has no JVD, lungs dim in lower lobes and +1 right lower leg edema. Has large obese abdomen. Limited echo being done today to reeval RV, EF. Recommend start of IV Lasix for diuresis. Strict I+O monitoring, close monitoring of electrolyte and kidney function. Electrolye replacement as warranted. BNP, BMP in am. We will follow. <PHYLLIS Streeter - Last Filed: 06/27/21 15:58> BNP elevated this admit, higher in last week. BNP was 2211 yesterday. CXR yest shows bilateral perihilar, LL airspace finding, small left effusion suggesting CHF. Echo done on 06/12 showed EF 60-65%, mod increase in RV size, normal RV function. Cr elevated, up to 1.92 this admit and down to 1.57 today. On exam he has no JVD, lungs dim in lower lobes and +1 right lower leg edema. Has large obese abdomen. Limited echo being done today to reeval RV, EF. Recommend start of IV Lasix for diuresis. Strict I+O monitoring, close monitoring of electrolyte and kidney function. Electrolye replacement as warranted. BNP, BMP in am. We will follow. Gentle diuresis with Lasix. Strict intake and output chart. Continue monitor renal function. Also trend BMP tomorrow. Does not appear to be overtly in heart failure. Echocardiogram pending. Will review <Candelario Rodriguez MD - Last Filed: 06/27/21 16:30> (3) Acute respiratory distress syndrome (ARDS) due to COVID-19 virus: Status: Acute <PHYLLIS Streeter - Last Filed: 06/27/21 15:58> Assessment and Plan: Improving. Sat 96% on 3 liters. <PHYLLIS Streeter - Last Filed: 06/27/21 15:58> Fall Risk Details Current Medications: Current Medications Diltiazem HCl (Diltiazem Hcl 60 Mg Tablet) 60 mg PO QID [facility]; Protocol Last Admin: 06/27/21 09:12 Dose: 60 mg Documented by: Finasteride (Finasteride 5 Mg Tablet) 5 mg PO DAILY [facility] Last Admin: 06/27/21 09:08 Dose: Not Given Documented by: Furosemide (Furosemide 20 Mg/2 Ml Vial) 20 mg IVPUSH BID@0900,1800 [facility]; Protocol Cefazolin Sodium 1 gm/ Sodium (Chloride) 50 mls @ 100 mls/hr IV Q12H [facility] Last Infusion: 06/27/21 05:42 Dose: Infused Documented by: Insulin Human Lispro (Insulin Lispro 100 Unit/Ml 3 Ml Vial) 0 unit SUBCUT QIDACHS [facility]; Protocol Last Admin: 06/27/21 06:23 Dose: Not Given Documented by: Metoprolol Tartrate (Metoprolol Tartrate 100 Mg Tablet) 100 mg PO BID [facility]; Protocol Last Admin: 06/27/21 09:12 Dose: 100 mg Documented by: Omeprazole (Omeprazole 40 Mg Capsule.Dr) 40 mg PO BID@0630,1630 [facility] Last Admin: 06/27/21 05:10 Dose: 40 mg Documented by: Sodium Chloride (0.9 % Sodium Chloride Flush 3 Ml Syringe) 3 ml IVFLUSH QSHIFT [facility] Last Admin: 06/27/21 09:12 Dose: 3 ml Documented by: <PHYLLIS Streeter - Last Filed: 06/27/21 15:58> Time Spent With Patient Time: Total time spent is greater than 50% in coordination of care (as documented) at patient's floor/unit and/or counseling patient: <PHYLLIS Streeter - Last Filed: 06/27/21 15:58> Time with patient: 15 - 24 minutes <PHYLLIS Streeter - Last Filed: 06/27/21 15:58> Progress Note: Quality Stroke Does the patient have a stroke diagnosis?: No <PHYLLIS Streeter - Last Filed: 06/27/21 15:58> Procedures Date of Service Date of Service: 06/27/21 <PHYLLIS Streeter - Last Filed: 06/27/21 15:58>
[2021-06-27 11:15] LABS: Glucose, Whole Blood 215 mg/dL (60-115)
--- NOTE | 2021-06-27 12:02 | MHC.SL.SWA ---
Speech Pathologist Impression: Risk of Aspiration Risk of Aspiration Due to: Hx of Recent Extubation Dysphasia Diet Status: Upgrade Liquid Consistency and Strategies for Safe Swallow: Liquid Intake Recommendation: Thin Liquid Intake Strategies: Small Sips Solid Food Consistency: Dietary Recommendations: Regular Additional Modifications to Solid Foods: No clinical s/s of aspiration with PO trials. Recommend REGULAR solids, THIN liquids, pills WHOLE in LIQUID. Patient able to self-feed, recommend intermittent supervision to ensure aspiration precautions. Oral Medication Intake: Whole with Liquid Compensatory Strategies and Precautions to be Taken for Safe Swallow: Sitting Upright (90 deg) Liquids from Cup Small Bites and Sips Alternate Liquids/Solids Supervision While Eating and Drinking for Safe Swallow: Intermittent Supervision Foods to Avoid: Swallowing Recommended Treatments: Compens. Strategy Educat. Recommendation for Speech: Inpatient Speech Therapy Comment: Pt seen this morning to follow-up on toleration of recommended diet of Regular w/thin liquids. Pt was feeling unwell this morning, accepted three sips of water, then declined any further trials of liquids or solids. Pt reported that he had not had breakfast due to no appetite, feeling unwell. As toleration of diet is unclear at this time, will f/u one more time to assess pt. Frequency/Duration: 1 f/u Date Range for Service Req: Timeline to reassess: Process Control Manager Clinican/Clinical Fellow: No Supervisory Statement: I have reviewed and agree with the student/clinical fellow's documentation: N/A Speech Language Pathologist: Evie Cedeño M.A., CCC-PIT CREW SUPPORT WORKER
[2021-06-27] MEDS: Insulin Lispro 100 UNIT/ML 3 ML VIAL SUBCUT ×3 (13:28→21:44)
--- NOTE | 2021-06-27 14:34 | MHC.CM.PN ---
ins auth received for pt to go to care of [facility] not placed to cardiology pending
--- NOTE | 2021-06-27 15:55 | P.PNIM_ITS ---
Subjective Subjective Date of Service: 06/27/21 Interval History: Offers no acute complaints, denies shortness of breath, no orthopnea, no chest pain, no palpitation was scheduled for Plaza catheter placement but procedure cancel since patient was in AFib with ventricular rate in 130, at present patient is in normal sinus rhythm with heart rate in 70-80 range. Review of Systems Review of Systems: Yes all other systems are reviewed and are negative Physical Exam Vital Signs: Vital Signs: Last Vital Signs Temp 98.2 F 06/27/21 15:37 Pulse 66 06/27/21 15:37 Resp 18 06/27/21 15:37 BP 140/62 H 06/27/21 15:37 Pulse Ox 96 06/27/21 15:37 Oxygen Flow Rate 3 06/27/21 10:00 BMI result Body Mass Index 34.3 Const: Other: Gen:? Awake alert, in no acute distress HEENT: sclera anicteric, moist mucus membranes Neck: supple Lungs: clear to auscultation bilaterally Heart: regular, no murmurs Abd: soft, non-tender, non-distended Ext: trace edema Skin: warm/well-perfused Neuro: alert and oriented x3, no focal findings Psych: appropriate affect Objective Data Active Medications Diltiazem HCl (Diltiazem Hcl 60 Mg Tablet) 60 mg PO QID [facility]; Protocol Last Admin: 06/27/21 13:28 Dose: 60 mg Documented by: WOODROW Finasteride (Finasteride 5 Mg Tablet) 5 mg PO DAILY [facility] Last Admin: 06/27/21 09:08 Dose: Not Given Documented by: WOODROW Non-Admin Reason: Physician Held Med Furosemide (Furosemide 20 Mg/2 Ml Vial) 20 mg IVPUSH BID@0900,1800 [facility]; Protoco l Cefazolin Sodium 1 gm/ Sodium (Chloride) 50 mls @ 100 mls/hr IV Q12H [facility] Last Infusion: 06/27/21 05:42 Dose: 0 mls/hr Documented by: HOLLAND Insulin Human Lispro (Insulin Lispro 100 Unit/Ml 3 Ml Vial) 0 unit SUBCUT QIDACHS [facility]; Protocol Last Admin: 06/27/21 13:28 Dose: 4 unit Documented by: WOODROW Metoprolol Tartrate (Metoprolol Tartrate 100 Mg Tablet) 100 mg PO BID [facility]; Protocol Last Admin: 06/27/21 09:12 Dose: 100 mg Documented by: BROBeny Omeprazole (Omeprazole 40 Mg Randall.) 40 mg PO BID@0630,1630 [facility] Last Admin: 06/27/21 15:41 Dose: 40 mg Documented by: POLLY Sodium Chloride (0.9 % Sodium Chloride Flush 3 Ml Syringe) 3 ml IVFLUSH QSHIFT [facility] Last Admin: 06/27/21 15:41 Dose: 3 ml Documented by: POLLY Labs CBC & Chem 7: 06/26/21 06:16 06/26/21 06:16 Labs: Laboratory Results - last 24 hr 06/26/21 06/26/21 06/27/21 16:42 19:48 00:29 POC Glucose 194 H 220 H 185 H 06/27/21 06/27/21 06/27/21 06:16 07:22 11:00 POC Glucose 189 H 210 H 215 H Assessment and Plan (1) Acute respiratory distress syndrome (ARDS) due to COVID-19 virus: Status: Acute (2) Morbid obesity: Status: Acute (3) Acute hypoxemic respiratory failure: Status: Acute (4) GI bleed: Status: Acute (5) Hypotension: Status: Acute (6) Atrial fibrillation with rapid ventricular response: Status: Acute Assessment and Plan: 76yo M with HTN, HLD, DM2, BPH, obesity admitted with breakthrough Covid-19 infection, AF/RVR, MSSA bacteremia developed hemorrhagic shock from large GI bleed and transferred to ICU EGD 06/[address] Mae under GETA: multiple duodenal ulcers, active bleedin g from a visible vessel in a 15x20 mm ulcer, bleeding controlled with 3ml epinephrine and gold probe cautery remained intubated after EGD, required norepinephrine and 2u PRBCs extubated 06/19/20, stepped down to IMC 06/20 # AF/RVR - converted to normal sinus rhythm on Cardizem 60 q.6 hours and metoprolol 100 b.i.d.s/p digoxin 0.25 mg x2 Case discussed with Dr. Murray he recommend to continue above treatment, and will consider rhythm controlling medication limited echocardiogram showed an EF of 50-60% and grade 2 diastolic dysfunction anticoagulation deferred for at least a month pending GI f/u and likely repeat C-scope to ensure healing of duodenal ulcers # MSSA bacteremia, 4/ BCx from 06/08-06/09 - unclear source.? repeat BCx from 06/19/21 negative times 48 hours, s/p IV nafcillin, changed to IV cefazolin due to rising creatinine, on d#9 of 28 as per ID , no vegetations on TTE?06/12/21, will have Plaza placed tomorrow for prolong iv antibiotics, procedure cancel today due to rapid ventricular rate. # hemorrhagic shock and anemia due to GI blood loss from duodenal ulcer - continue bid PPI - tolerating regular diet, hematocrit dropped but stable follow CBC, guaiac+ from recent GIB - will need GI follow-up for repeat EGD # Covid-19 pneumonia with ARDS and acute hypoxic respiratory failure - continue to wean oxygen as tolerated, not given steroids due to duodenal ulcer, currently on 2L O2 # dysphagia s/p extubation - seen by speech they recommend clear liquids and regular solids # pulmonary edema # acute/chronic HFpEF - likely iatrogenic, improved with diuresis, diuretics were held due to rising creatinine; noted to have significantly elevated BNP 2210, chest x-ray shows finding similar to June 17 questionable for CHF, patient not on home diuretics, Will give him gentle diuresis and follow BNP and BMP strict I's and O's # ROBIN - likely ischemic ATN vs excess diuresis improved - serum creatinine then increased, likely due to nafcillin + diuresis; improved with switching to cefazolin and discontinuing diuresis - Nephrology following, follow BMP while being diuresed # thrombocytopenia - resolved # prostatism - continue finasteride # DM2 - as on glipizide 10 mg by mouth b.i.d. and pioglitazone once daily, continue diabetic diet and correction-dose lispro # VTE ppx - SCDs # dispo - STR placement pending, will recheck Covid-19 JOSE ALBERTO once bed available Quality Stroke Does the patient have a stroke diagnosis?: No VTE Prior VTE?: No VTE Risk Level:: Medical - moderate - high VTE Device Contraindication: Treatment Not Indicated VTE Drug Contraindication: Treatment Not Indicated
[2021-06-27 16:05] LABS: Glucose, Whole Blood 188 mg/dL (60-115)
[2021-06-27] MEDS: Furosemide 20 MG/2 ML VIAL IVPUSH (16:54)
[2021-06-27 19:54] LABS: Glucose, Whole Blood 163 mg/dL (60-115)
[2021-06-28] VITALS (13 sets, daily range): BP systolic 127–172; BP diastolic 55–80; PULSE 68–134; RESP 12–24; TEMP 36–37.3; O2SAT 86–97; BMI 34.5
--- NOTE | 2021-06-28 | ECG_ITS ---
Test Reason : cp Blood Pressure : / mmHG Vent. Rate : 136 BPM Atrial Rate : 136 BPM P-R Int : 150 ms QRS Dur : 090 ms QT Int : 274 ms P-R-T Axes : 000 -01 213 degrees QTc Int : 412 ms Atrial flutter with 2 to 1 block Diffuse T wave changes Abnormal ECG When compared with ECG of 27-JUN-2021 13:47, Atrial flutter with 2 to 1 block has replaced Atrial fibrillation with rapid ventricular response ST now depressed in Anterolateral leads T wave inversion less evident in Anterior leads Referred By: Hoa Lan Electronically Signed By:NATALIIA ARAIZA MD
--- NOTE | 2021-06-28 | ECG_ITS ---
Test Reason : cp Blood Pressure : / mmHG Vent. Rate : 125 BPM Atrial Rate : 000 BPM P-R Int : 000 ms QRS Dur : 108 ms QT Int : 340 ms P-R-T Axes : 000 010 199 degrees QTc Int : 490 ms Atrial fibrillation with rapid ventricular response Minimal voltage criteria for LVH, may be normal variant ( [place] product ) Marked ST abnormality, possible inferior subendocardial injury Abnormal ECG When compared to the previous EKG of Atrial fibrillation with rapid ventricular response has replaced Normal sinus rhythm Referred By: Hoa Lan Electronically Signed By:NATALIIA ARAIZA MD
[2021-06-28 00:44] LABS: Glucose, Whole Blood 147 mg/dL (60-115)
[2021-06-28] MEDS: 0.9 % Sodium Chloride Flush 3 ML SYRINGE IVFLUSH ×4 (00:45→21:25)
[2021-06-28 07:32] LABS: Glucose, Whole Blood 162 mg/dL (60-115)
[2021-06-28 08:29] LABS: Hematocrit 26.2 % (42.0-52.0); Hemoglobin 8.1 g/dl (14.0-18.0); Mean Corpuscular HGB Conc 30.9 g/dl (31.0-36.0); Mean Corpuscular Hemoglobin 29.8 pg (27.0-33.0); Mean Corpuscular Volume 96.3 fL (80.0-98.0); Mean Platelet Volume 11.7 fL (9.4-12.4); NRBC Pct Auto 0.2 /100WBC (0.0-0.2); Platelet Count 281 X10*3/uL (160-400); Red Blood Count 2.72 X10*6/uL (4.60-5.80); Red Cell Distribution Width 17.8 % (11.0-16.0); White Blood Count 17.2 X10*3/uL (4.8-10.8)
[2021-06-28 08:45] LABS: Anion Gap 17 (12-20); Blood Urea Nitrogen 77 mg/dL (9-16); Calcium 8.6 mg/dL (8.4-10.2); Carbon Dioxide 27 mmol/L (22-29); Chloride 106 mmol/L (96-108); Estimated Glomerular Filt Rate 45; Glucose Random 186 mg/dL (60-115); Potassium 3.2 mmol/L (3.3-5.1); Sodium 147 mmol/L (135-145)
[2021-06-28 08:49] LABS: B Type Natriuretic Peptide 2334 pg/mL (<100)
[2021-06-28] MEDS: Furosemide 20 MG/2 ML VIAL IVPUSH (08:54)
[2021-06-28] MEDS: Metoprolol Tartrate 100 MG TABLET PO ×2 (08:57→21:25)
[2021-06-28] MEDS: Finasteride 5 MG TABLET PO (08:57)
[2021-06-28] MEDS: dilTIAZem HCL 60 MG TABLET PO ×2 (08:57→14:34)
--- NOTE | 2021-06-28 09:02 | MHC.CM.PN ---
PT DC SET FOR 3 TODAY TO [facility] BOOKED FOR TRANSPORT PT [facility]S [facility]
--- NOTE | 2021-06-28 09:45 | PC.NURSE ---
To IR for Hickmann insertion.
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
--- NOTE | 2021-06-28 11:13 | P.PNCA_ITS ---
Subjective Subjective Date of Service: 06/28/21 <PHYLLIS Streeter - Last Filed: 06/28/21 11:23> 06/28/21 <Candelario Rodriguez MD - Last Filed: 06/28/21 11:39> Principal diagnosis: Atrial fibrillation <PHYLLIS Streeter - Last Filed: 06/28/21 11:23> Interval history: Cardiology follow-up for AFib, heart failure. Seen at 08:30. Today he reports that he feels generally well. He has no specific complaints. His breathing is comfortable, no chest pains or heart palpitations. He does have edema in his legs. He is wearing oxygen with nasal cannula, no cough. <PHYLLIS Streeter - Last Filed: 06/28/21 11:23> Review of Systems Review of Systems as above <PHYLLIS Streeter - Last Filed: 06/28/21 11:23> Yes all other systems are reviewed and are negative <PHYLLIS Streeter - Last Filed: 06/28/21 11:23> Physical Exam Vital Signs: Last Vital Signs Temp 98 F 06/28/21 09:57 Pulse 68 06/28/21 09:57 Resp 18 06/28/21 09:57 BP 146/80 H 06/28/21 09:57 Pulse Ox 96 06/28/21 09:57 Verdana 4 Oxygen Flow Verdana 4 3 Verdana 4 06/27/21 Rate Verdana 4 10:00 Verdana 4 Verdana 4 BMI result Verdana 4 Body Mass Index Verdana 4 34.5 Verdana 4 Verdana 4 <PHYLLIS Streeter - Last Filed: 06/28/21 11:23> Const General: cooperative, no acute distress, alert and awake <PHYLLIS Streeter Last Filed: 06/28/21 11:23> Orientation/consciousness: patient oriented x3 <PHYLLIS Streeter Last Filed: 06/28/21 11:23> Neck Other: JVD present <PHYLLIS Streeter - Last Filed: 06/28/21 11:23> Resp Effort & Inspection: normal respiratory effort and able to speak in complete sentences <Hoa Lan NP-C - Last Filed: 06/28/21 11:23> Auscultation: clear to auscultation bilaterally, no rhonchi and no wheezes <Hoa Lan NPC - Last Filed: 06/28/21 11:23> Cardio Jugular venous distension: JVD <Hoa Lan NPC - Last Filed: 06/28/21 11:23> Palpation: normal PMI <Hoa Lan TOUR GUIDEC - Last Filed: 06/28/21 11:23> Rate: regular rate [facility] - Last Filed: 06/28/21 11:23> Rhythm: regular rhythm <Hoa Lan NPC - Last Filed: 06/28/21 11:23> Heart sounds: S1 normal heart sound present and S2 normal heart sound present <Hoa Lan TOUR GUIDE-C - Last Filed: 06/28/21 11:23> Peripheral pulses: Peripheral pulses 2+ throughout <Hoa Lan TOUR GUIDE-C - Last Filed: 06/28/21 11:23> GI Inspection: Yes normal to inspection <Hoa LanROSANGELA-C - Last Filed: 06/28/21 11:23> Neuro General: patient oriented x3 <[facility] - Last Filed: 06/28/21 11:23> Extrem Other: Pitting edema in lower extremities <Hoa Lan TOUR GUIDEC - Last Filed: 06/28/21 11:23> General: Yes normal to inspection (Moves all extremities, generalized weakness.) <Hoa Lan TOUR GUIDE-C - Last Filed: 06/28/21 11:23> Objective Labs and Meds Result diagrams: : 06/28/21 08:03 06/28/21 08:03 <Hoa LanROSANGELAC - Last Filed: 06/28/21 11:23> Lab results: Laboratory Results - last 24 hr 06/27/21 06/27/21 06/27/21 11:00 16:00 19:49 WBC RBC Hgb Hct MCV MCH MCHC RDW Plt Count MPV Absolute Nucleated RBC Nucleated RBC % (auto) Sodium Potassium Chloride Carbon Dioxide Anion Gap BUN Creatinine Estim Creat Clear Calc Estimated GFR POC Glucose 215 H 188 H 163 H Random Glucose Calcium B-Natriuretic Peptide 06/28/21 06/28/21 06/28/21 00:40 07:26 08:03 WBC RBC Hgb Hct MCV MCH MCHC RDW Plt Count MPV Absolute Nucleated RBC Nucleated RBC % (auto) Sodium 147 H Potassium 3.2 L Chloride 106 Carbon Dioxide 27 Anion Gap 17 BUN 77 H Creatinine 1.52 H Estim Creat Clear Calc 55.0 Estimated GFR 45 POC Glucose 147 H 162 H Random Glucose 186 H Calcium 8.6 B-Natriuretic Peptide 06/28/21 06/28/21 08:03 08:03 WBC 17.2 H RBC 2.72 L Hgb 8.1 L Hct 26.2 L MCV 96.3 MCH 29.8 MCHC 30.9 L RDW 17.8 H Plt Count 281 MPV 11.7 Absolute Nucleated RBC 0.030 H Nucleated RBC % (auto) 0.2 Sodium Potassium Chloride Carbon Dioxide Anion Gap BUN Creatinine Estim Creat Clear Calc Estimated GFR POC Glucose Random Glucose Calcium B-Natriuretic Peptide 2334 H <PHYLLIS Streeter - Last Filed: 06/28/21 11:23> Progress Note: A&P Assessment and plan (1) Paroxysmal A-fib: Status: Acute <PHYLLIS Streeter - Last Filed: 06/28/21 11:23> Assessment and Plan: New finding of persistent afib this admission, in setting of acute illness with COVID, resp failure, then GIB. . Has been treated with heart rate control. Currently on Metoprolol and Diltiazem. 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 He remains off anticoagulation due to GI bleed this admission. Hemoglobin 8.1 today. Discussed with hospitalist and she will have patient reseen by GI to address when anticoagulation can be started. Stool occult blood + on 06/24/21. Continue to hold anticoagulation. Continue metoprolol and diltiazem. Will start on Multaq 400 mg b.i.d. to help maintain sinus rhythm. EKG in a.m. Ongoing tele monitoring <PHYLLIS Streeter - Last Filed: 06/28/21 11:23> New finding of persistent afib this admission, in setting of acute illness with COVID, resp failure, then GIB. . Has been treated with heart rate control. Currently on Metoprolol and Diltiazem. 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 He remains off anticoagulation due to GI bleed this admission. Hemoglobin 8.1 today. Discussed with hospitalist and she will have patient reseen by GI to address when anticoagulation can be started. Stool occult blood + on 06/24/21. Continue to hold anticoagulation. Continue metoprolol and diltiazem. Will start on Multaq 400 mg b.i.d. to help maintain sinus rhythm. EKG in a.m. Ongoing tele monitoring Plan: Patient seen and case discussed with Hoa Lan. Patient continues to have intermittent episodes of atrial fibrillation rapid ventricular response. Will start him on antiarrhythmic drug with Multaq 400 mg b.i.d.. Closely monitor for heart failure. Other charges of antiarrhythmic is a limited given his multiple comorbidities. Currently off oral anticoagulation therapy due to recent GI bleed. GI input for resuming oral anticoagulation as soon as possible. <Candelario Rodriguez MD - Last Filed: 06/28/21 11:39> (2) Heart failure with preserved ejection fraction: Status: Acute <PHYLLIS Streeter - Last Filed: 06/28/21 11:23> Assessment and Plan: Chest x-ray done on 06/26 with finding suggesting Congestive heart failure. BNP elevated over 1999. He was started on Lasix IV, low dose. Limited echo done yesterday shows EF 55-60%, grade 2 diastolic dysfunction, mildly dilated RV, [id number] increase in the RV systolic pressure which is different from echo earlier this admission and small pericardial effusion. Creatinine 1.52, was 1.57 yesterday. Will increase his Lasix to 40 mg IV b.i.d.. Continue strict I&O monitoring, close monitoring of electrolytes and kidney function. Electrolyte replacement if warranted. We will follow <PHYLLIS Streeter - Last Filed: 06/28/21 11:23> Chest x-ray done on 06/26 with finding suggesting Congestive heart failure. BNP elevated over 1999. He was started on Lasix IV, low dose. Limited echo done yesterday shows EF 55-60%, grade 2 diastolic dysfunction, mildly dilated RV, [id number] increase in the RV systolic pressure which is different from echo earlier this admission and small pericardial effusion. Creatinine 1.52, was 1.57 yesterday. Will increase his Lasix to 40 mg IV b.i.d.. Continue strict I&O monitoring, close monitoring of electrolytes and kidney function. Electrolyte replacement if warranted. We will follow Plan: Increase Lasix to 40 mg b.i.d.. BNP is still significantly elevated. Clinically has fluid overload. Strict intake and output chart needs to be pursued. Continue monitor renal function electrolytes. Continue to maintain rhythm as above. Closely watch for worsening heart failure syndrome. <Candelario Rodriguez MD - Last Filed: 06/28/21 11:39> (3) Elevated brain natriuretic peptide (BNP) level: Status: Acute <PHYLLIS Streeter - Last Filed: 06/28/21 11:23> (4) Morbid obesity: Status: Acute <PHYLLIS Streeter - Last Filed: 06/28/21 11:23> Fall Risk Details Current Medications: Current Medications Diltiazem HCl (Diltiazem Hcl 60 Mg Tablet) 60 mg PO QID [facility]; Protocol Last Admin: 06/28/21 08:57 Dose: 60 mg Documented by: Finasteride (Finasteride 5 Mg Tablet) 5 mg PO DAILY [facility] Last Admin: 06/28/21 08:57 Dose: 5 mg Documented by: Furosemide (Furosemide 20 Mg/2 Ml Vial) 20 mg IVPUSH BID@0900,1800 [facility]; Protocol Last Admin: 06/28/21 08:54 Dose: 20 mg Documented by: Cefazolin Sodium 1 gm/ Sodium (Chloride) 50 mls @ 100 mls/hr IV Q12H [facility] Last Infusion: 06/28/21 07:00 Dose: Infused Documented by: Insulin Human Lispro (Insulin Lispro 100 Unit/Ml 3 Ml Vial) 0 unit SUBCUT QIDACHS [facility]; Protocol Last Admin: 06/28/21 08:48 Dose: Not Given Documented by: Metoprolol Tartrate (Metoprolol Tartrate 100 Mg Tablet) 100 mg PO BID [facility]; Protocol Last Admin: 06/28/21 08:57 Dose: 100 mg Documented by: Omeprazole (Omeprazole 40 Mg Capsule.) 40 mg PO BID@6030,2110 [facility] Last Admin: 06/28/21 06:33 Dose: Not Given Documented by: Sodium Chloride (0.9 % Sodium Chloride Flush 3 Ml Syringe) 3 ml IVFLUSH QSHIFT [facility] Last Admin: 06/28/21 08:58 Dose: 3 ml Documented by: <PHYLLIS Streeter - Last Filed: 06/28/21 11:23> Time Spent With Patient Time: Total time spent is greater than 50% in coordination of care (as documented) at patient's floor/unit and/or counseling patient: <PHYLLIS Streeter - Last Filed: 06/28/21 11:23> Time with patient: 15 - 24 minutes <PHYLLIS Streeter - Last Filed: 06/28/21 11:23> Progress Note: Quality Stroke Does the patient have a stroke diagnosis?: No <PHYLLIS Streeter - Last Filed: 06/28/21 11:23> Procedures Date of Service Date of Service: 06/28/21 <PHYLLIS Streeter - Last Filed: 06/28/21 11:23>
--- NOTE | 2021-06-28 12:45 | P.PNNP_ITS ---
Subjective Subjective Date of Service: 06/28/21 Principal diagnosis: Atrial fibrillation Interval history: Seen and examined, events noted Physical Exam Verdana 4l Vital Signs: Verdana 4d Verdana 4d Vital Signs: Verdana 4d Verdana 4Bd Last Vital Signs Verdana 4d Florist Supplies Salesperson New 4d Florist Supplies Salesperson New 4d Temp 98 F 06/28/21 09:57 Florist Supplies Salesperson New 4d Pulse 68 06/28/21 09:57 Florist Supplies Salesperson New 4d Resp 18 06/28/21 09:57 BP 146/80 H 06/28/21 09:57 Pulse Ox 96 06/28/21 09:57 Oxygen Flow Rate 3 06/27/21 10:00 BMI result Body Mass Index 34.5 Const: Other: Gen:? Awake alert, in no acute distress HEENT: sclera anicteric, moist mucus membranes Neck: supple, LIJ CVC Lungs: diminished bilateral bases, no respiratory distress Heart: irregular rate and rhythm, no murmurs Abd: soft, non-tender, non-distended Ext: no edema Skin: warm/well-perfused Neuro: alert and oriented x3, no focal findings Psych: appropriate affect ? General: cooperative, comfortable, no acute distress, alert, awake, ill appearing and other ( sedated on the vent, arousable with sedation vacation) Nutritional Appearance: obese Orientation/consciousness: patient oriented x3 HENMT: Head: Yes normal to inspection Eyes: Sclerae: sclerae normal EOM: EOMs intact bilaterally Neck: Neck: Yes no lymphadenopathy, Yes trachea midline, Yes supple and Yes no JVD Resp: Other: On ventilator Effort & Inspection: normal respiratory effort, decreased respiratory effort and no respiratory distress Auscultation: crackles ( Bibasilar), no rales, no wheezes and diminished lung sounds Cardio: Other: irregular, AFib Jugular venous distension: no JVD Rate: regular rate and tachycardic Rhythm: regular rhythm and abnormal rhythm irregularly irregular Heart sounds: S1 normal heart sound present, S2 normal heart sound present, no click, no gallops, no murmurs and no rubs GI: Other: abdomen is soft and without masses Palpation (GI): Soft to palpation, not firm, nontender, no guarding, not rigid and Other GI palpation findings present ( Nontender) Auscultation: normal bowel sounds Skin: General skin exam: no rashes or lesions noted Neuro: General: patient oriented x3 and no focal motor deficits Extrem: General: Yes normal to inspection, Yes no clubbing, cyanosis or edema, Yes no pedal edema, No clubbing, No cyanosis and Yes pedal edema ( 1+ bilateral) Psych: Appearance: grossly normal Objective Data Labs CBC & Chem 7: 06/28/21 08:03 06/28/21 08:03 Labs: Laboratory Results - last 24 hr 06/27/21 06/27/21 06/28/21 16:00 19:49 00:40 WBC RBC Hgb Hct MCV MCH MCHC RDW Plt Count MPV Absolute Nucleated RBC Nucleated RBC % (auto) Sodium Potassium Chloride Carbon Dioxide Anion Gap BUN Creatinine Estim Creat Clear Calc Estimated GFR POC Glucose 188 H 163 H 147 H Random Glucose Calcium B-Natriuretic Peptide 06/28/21 06/28/21 06/28/21 07:26 08:03 08:03 WBC RBC Hgb Hct MCV MCH MCHC RDW Plt Count MPV Absolute Nucleated RBC Nucleated RBC % (auto) Sodium 147 H Potassium 3.2 L Chloride 106 Carbon Dioxide 27 Anion Gap 17 BUN 77 H Creatinine 1.52 H Estim Creat Clear Calc 55.0 Estimated GFR 45 POC Glucose 162 H Random Glucose 186 H Calcium 8.6 B-Natriuretic Peptide 2334 H 06/28/21 08:03 WBC 17.2 H RBC 2.72 L Hgb 8.1 L Hct 26.2 L MCV 96.3 MCH 29.8 MCHC 30.9 L RDW 17.8 H Plt Count 281 MPV 11.7 Absolute Nucleated RBC 0.030 H Nucleated RBC % (auto) 0.2 Sodium Potassium Chloride Carbon Dioxide Anion Gap BUN Creatinine Estim Creat Clear Calc Estimated GFR POC Glucose Random Glucose Calcium B-Natriuretic Peptide Microbiology Microbiology Results: Microbiology 06/19/21 14:54 Blood - Venous Blood Culture - Final No growth after 5 days. 06/19/21 14:55 Blood - Venous Blood Culture - Final No growth after 5 days. 06/09/21 17:15 Blood - Venous Blood Culture - Final Staphylococcus aureus 06/09/21 17:10 Blood - Venous Blood Culture - Final Staphylococcus aureus 06/08/21 23:11 Blood - Venous Blood Culture - Final Staphylococcus aureus 06/08/21 23:11 Blood - Venous Blood Culture - Final Staphylococcus aureus Procedures Date of Service Date of Service: 06/28/21 Assessment & Plan Assessment and plan (1) Acute respiratory distress syndrome (ARDS) due to COVID-19 virus: Status: Acute (2) Morbid obesity: Status: Acute (3) Acute hypoxemic respiratory failure: Status: Acute (4) GI bleed: Status: Acute (5) Hypotension: Status: Acute (6) Atrial fibrillation with rapid ventricular response: Status: Acute Plan 76yo M with HTN, HLD, DM2, BPH, obesity admitted with breakthrough Covid-19 infection, AF/RVR, MSSA bacteremia developed hemorrhagic shock from large GI bleed 1. ROBIN: cont improvement 2. Incr Bun/Cr ratio: suspect IV vol depleted; other poss is UGIB but that prob has passed ? 3. Ques renal mass on U/S: will need eval in future with renal mass protocol CT or MRI 4. Vol status: appears voloverloadedwith incr BNP; lasix r/s REC: track UOP/renal func; avoid NToxins; watch renal func now that diuretics r/s if needs iv access for ABX prefer Plaza over PIC--but if pic placed then use dominant arm will follow clsoley with team Time Spent With Patient Time: Total time spent is greater than 50% in coordination of care (as documented) at patient's floor/unit and/or counseling patient: Progress Note: Quality Stroke Does the patient have a stroke diagnosis?: No
[2021-06-28] MEDS: iohexoL 300 MG/ML 50 ML INFUS..BTL 20 ML IV (12:52)
[2021-06-28] MEDS: Lidocaine HCl 1 % MPF 5 ML VIAL SUBCUT (12:56)
[2021-06-28] MEDS: Potassium Chloride ER 20 MEQ TAB.ER.PRT 40 MEQ PO (14:34)
--- NOTE | 2021-06-28 14:36 | MHC.CLN ---
F/U PO INTAKE VARIABLE, BUT USUALLY 0-25%. CURRENT DIET=NPO FOR [facility] CATH PLACEMENT. CONTINUE PRIOR DIET WHEN APPROPRIATE: DIABETIC 2000 KCAL, REGULAR SOLIDS, THIN LIQUIDS PER RIP MACHINE OPERATOR 06/27. CONTINUE GLUCERNA TID TO INCREASE KCALS AND PROMOTE WOUND HEALING. PROVIDES 710 KCALS, 30 G PROTEIN. MONITOR DIET ADVANCEMENT AND PO INTAKE CLOSELY
--- NOTE | 2021-06-28 14:52 | PC.NURSE ---
Pt returned from [facility] cath placement. yamini care given and repositioned on airloss bed/paper pad on left side. Will be on a T+R schedule q2 hours. (posted on board and communicated to ANTHROPOMETRIST.). States he is just tired . Given scheduled po meds and allowed to rest. NSR 70's. Plaza c/d/i.
--- NOTE | 2021-06-28 15:09 | MHC.CM.PN ---
Male 76 s/p Plaza for LT IV ABX. He was scheduled to discharge today to [facility] via [facility]. The discharge is canceled per Dr Noland. The patient is in HF. [facility] and [facility] have been notified that the discharge is on hold.
[2021-06-28 16:21] LABS: Glucose, Whole Blood 184 mg/dL (60-115)
--- NOTE | 2021-06-28 16:50 | P.PNIM_ITS ---
Subjective Subjective Date of Service: 06/28/21 Interval History: patient awake alert offers no acute complaints, back examination reveals significant deep tissue pressure injury both right and left buttocks, denies shortness of breath, no chest pain no palpitations. Is NPO for Worrell catheter. Review of Systems Review of Systems: Yes all other systems are reviewed and are negative Physical Exam Verdana 4l Vital Signs: Verdana 4d Verdana 4d Vital Signs: Verdana 4d Verdana 4Bd Last Vital Signs Verdana 4d Marine Underwriter New 4d Marine Underwriter New 4d Temp 96.8 F 06/28/21 15:34 Marine Underwriter New 4d Pulse 78 06/28/21 15:34 Marine Underwriter New 4d Resp 12 06/28/21 15:34 BP 153/70 H 06/28/21 15:34 Pulse Ox 86 L 06/28/21 15:34 Oxygen Flow Rate 3 06/27/21 10:00 BMI result Body Mass Index 34.5 Const: Other: Gen:? Awake alert, in no acute distress HEENT: sclera anicteric, moist mucus membranes Neck: supple Lungs: clear to auscultation bilaterally, no rash Heart: irregular, no murmurs Abd: soft, non-tender, obese Ext: trace edema Skin: warm/well-perfused/ significant pressure injury both buttocks right greater than left is stage II coccyx. Neuro: alert and oriented x3, no focal findings Psych: appropriate affect Objective Data Active Medications Diltiazem HCl (Diltiazem Hcl 60 Mg Tablet) 60 mg PO QID [facility]; Protocol Last Admin: 06/28/21 16:40 Dose: Not Given Documented by: DOM Non-Admin Reason: last dose late/ at procedure Dronedarone (Dronedarone Hcl 400 Mg Tablet) 400 mg PO BID [facility] Last Admin: 06/28/21 12:44 Dose: Not Given Documented by: DOM Non-Admin Reason: off unit for Worrell Finasteride (Finasteride 5 Mg Tablet) 5 mg PO DAILY [facility] Last Admin: 06/28/21 08:57 Dose: 5 mg Documented by: DOM Furosemide (Furosemide 40 Mg/4 Ml Vial) 40 mg IVPUSH BID@0900,1800 [facility]; Protocol Cefazolin Sodium 1 gm/ Sodium (Chloride) 50 mls @ 100 mls/hr IV Q12H [facility] Last Infusion: 06/28/21 07:00 Dose: 0 mls/hr Documented by: MARK ANTHONY Insulin Human Lispro (Insulin Lispro 100 Unit/Ml 3 Ml Vial) 0 unit SUBCUT QIDACHS [facility]; Protocol Last Admin: 06/28/21 12:44 Dose: Not Given Documented by: DOM Non-Admin Reason: off unit for worrell Metoprolol Tartrate (Metoprolol Tartrate 100 Mg Tablet) 100 mg PO BID [facility]; Protocol Last Admin: 06/28/21 08:57 Dose: 100 mg Documented by: DOM Omeprazole (Omeprazole 40 Mg Capsule.Dr) 40 mg PO BID@0630,1630 [facility] Last Admin: 06/28/21 06:33 Dose: Not Given Documented by: MARK ANTHONY Non-Admin Reason: NPO Potassium Chloride (Potassium Chloride Er 20 Meq Tab.Er.Prt) 40 meq PO DAILY [facility] Last Admin: 06/28/21 14:34 Dose: 40 meq Documented by: DOM Sodium Chloride (0.9 % Sodium Chloride Flush 3 Ml Syringe) 3 ml IVFLUSH QSHIFT [facility] Last Admin: 06/28/21 08:58 Dose: 3 ml Documented by: DOM Labs CBC & Chem 7: 06/28/21 08:03 06/28/21 08:03 Labs: Laboratory Results - last 24 hr 06/27/21 06/28/21 06/28/21 19:49 00:40 07:26 MCV MCH MCHC RDW Plt Count MPV Absolute Nucleated RBC Nucleated RBC % (auto) Anion Gap Estim Creat Clear Calc Estimated GFR POC Glucose 163 H 147 H 162 H Random Glucose Calcium B-Natriuretic Peptide 06/28/21 06/28/21 06/28/21 08:03 08:03 08:03 MCV 96.3 MCH 29.8 MCHC 30.9 L RDW 17.8 H Plt Count 281 MPV 11.7 Absolute Nucleated RBC 0.030 H Nucleated RBC % (auto) 0.2 Anion Gap 17 Estim Creat Clear Calc 55.0 Estimated GFR 45 POC Glucose Random Glucose 186 H Calcium 8.6 B-Natriuretic Peptide 2334 H 06/28/21 16:09 MCV MCH MCHC RDW Plt Count MPV Absolute Nucleated RBC Nucleated RBC % (auto) Anion Gap Estim Creat Clear Calc Estimated GFR POC Glucose 184 H Random Glucose Calcium B-Natriuretic Peptide Assessment and Plan (1) Acute respiratory distress syndrome (ARDS) due to COVID-19 virus: Status: Acute (2) Morbid obesity: Status: Acute (3) Acute hypoxemic respiratory failure: Status: Acute (4) GI bleed: Status: Acute (5) Hypotension: Status: Acute (6) Atrial fibrillation with rapid ventricular response: Status: Acute Plan 76yo M with HTN, HLD, DM2, BPH, obesity admitted with breakthrough Covid-19 infection, AF/RVR, MSSA bacteremia developed hemorrhagic shock from large GI bleed and transferred to ICU EGD 06/[address] Mae under GETA: multiple duodenal ulcers, active bleeding from a visible vessel in a 15x20 mm ulcer, bleeding controlled with 3ml epinephrine and gold probe cautery remained intubated after EGD, required norepinephrine and 2u PRBCs extubated 06/19/20, stepped down to [facility] 06/20 # AF/RVR Intermittent episodes of atrial fibrillation with rapid ventricular response on Cardizem 60 q.6 hours and metoprolol 100 b.i.d.s/p digoxin 0.25 mg x2 patient started on Multaq 400 mg b.i.d. per Cardiology limited echocardiogram showed an EF of 50-60% and grade 2 diastolic dysfunction anticoagulation deferred for at least a month pending GI f/u and likely repeat C-scope to ensure healing of duodenal ulcers # acute/chronic HFpEF initially treated with diuretics that was subsequently held due to rising creatinine; noted to have significantly elevated BNP 2211, chest x-ray shows finding similar to June 17 questionable for CHF, patient not on home diuretics, will cont. diuretics with Lasix 40 b.i.d.,follow BNP and BMP strict I's and O's # MSSA bacteremia, 4/ BCx from 06/08-06/09 - unclear source.? repeat BCx from 06/19/21 negative times 48 hours, s/p IV nafcillin, changed to IV cefazolin due to rising creatinine, on d# as per ID , no vegetations on TTE?06/12/21, Worrell placed today for prolong iv antibiotics, # hemorrhagic shock and anemia due to GI blood loss from duodenal ulcer - continue bid PPI - tolerating regular diet, hematocrit dropped but stable follow CBC, guaiac+ from recent GIB - will need GI follow-up for repeat EGD # Covid-19 pneumonia with ARDS and acute hypoxic respiratory failure - continue to wean oxygen as tolerated, not given steroids due to duodenal ulcer, currently on 2L O2 # dysphagia s/p extubation - seen by speech they recommend clear liquids and regular solids # ROBIN - likely ischemic ATN vs excess diuresis improved - serum creatinine then increased, likely due to nafcillin + diuresis; improved with switching to cefazolin and discontinuing diuresis - Nephrology following, follow BMP while being diuresed # thrombocytopenia - resolved # prostatism - continue finasteride # DM2 - as on glipizide 10 mg by mouth b.i.d. and pioglitazone once daily, continue diabetic diet and correction-dose lispro # stage II coccyx and bilateral buttock pressure injury right greater than left frequent position change, high-protein diet and barrier cream/ # VTE ppx - SCDs # dispo - STR once medically stable Quality Stroke Does the patient have a stroke diagnosis?: No VTE Prior VTE?: No VTE Risk Level:: Medical - moderate - high VTE Device Contraindication: Treatment Not Indicated VTE Drug Contraindication: Treatment Not Indicated
[2021-06-28] MEDS: Omeprazole 40 MG CAPSULE.DR PO (17:00)
[2021-06-28] MEDS: Furosemide 40 MG/4 ML VIAL IVPUSH ×2 (17:02→22:27)
--- NOTE | 2021-06-28 17:40 | PC.NURSE ---
R 120 at this time. had to give 2nd dose of Cardizem PO late because patient was at procedure today. Will suggest to night nurse to give 5pm dose at 7pm and 4th dose at MN (in order to not skip a dose). Dr. Noland aware of plan. Also slight SOB (using excessory muscles)but o2 sats 93%3LNC. Gave dose of lasix 40mg IV at this time. On continuous tele/o2 sat monitr. Dr. Andino up to see patient. Patient also c/o pain near worrell site. Requested pain medicine for patient. MD will order, and will also order a does of digoxin po for elevated HR.
[2021-06-28] MEDS: Morphine Sulfate 4 MG/ML CARTRIDGE 3 MG IVPUSH (18:04)
--- NOTE | 2021-06-28 18:21 | PC.NURSE ---
Dr. Andino up to see patient. patient started to c/o CP and pain near Plaza site. Morphone 3 mg IVP given and ECG done. Will start a cardizem drip when arrives from pharmacy
[2021-06-28] MEDS: dilTIAZem HCL 125 MG in 0.9 % Sodium Chloride 100 ML IVCONT (19:01)
--- NOTE | 2021-06-28 20:04 | PC.NURSE ---
Addendum entered by Lori Jackson RN 06/29/21 00:52: Cardizem drip titrated up to 15mg as pt HR remained 120-130's. Around 2240 this RN noted pt HR to be in the 70-90's and cardizem drip was turned off. Around 2345 pt HR up into the 130's, cardizem drip turned back on at 5mg. Original Note: Report given to Lori ZAMORA. She hung Cardizem drip at 7pm and assumed care.
[2021-06-28 20:16] LABS: Glucose, Whole Blood 220 mg/dL (60-115)
[2021-06-28 20:39] LABS: Anion Gap 22 (12-20); Blood Urea Nitrogen 73 mg/dL (9-16); Calcium 8.6 mg/dL (8.4-10.2); Carbon Dioxide 24 mmol/L (22-29); Chloride 105 mmol/L (96-108); Estimated Glomerular Filt Rate 41; Glucose Random 236 mg/dL (60-115); Potassium 3.5 mmol/L (3.3-5.1); Sodium 147 mmol/L (135-145)
[2021-06-28 20:50] LABS: B Type Natriuretic Peptide 2615 pg/mL (<100); Troponin-I High Sensitivity 755.4 ng/L (<3.5-35.0)
[2021-06-28] MEDS: Insulin Lispro 100 UNIT/ML 3 ML VIAL SUBCUT (21:26)
--- NOTE | 2021-06-28 22:11 | PM.EVENT ---
Event Note Date of Service: 06/29/21 Event Note: pt troponin was found to be evelated with worsening T-wave changes in the lateral leads. spoke to cariology as well as GI. will follow troponin at this time if sig worst, will start heparin.
[2021-06-28 22:31] LABS: MANUAL DIFF FLAG NO
[2021-06-28 22:42] LABS: Basophils Percent Auto 0.2 % (0-2); Eosinophils Absolute Auto 0.3 X10*3/uL (0.0-0.4); Eosinophils Percent Auto 1.9 % (0-4); Hematocrit 25.8 % (42.0-52.0); Hemoglobin 7.9 g/dl (14.0-18.0); Imm Gran Abs Auto 0.39 X10*3/uL (0.00-0.03); Imm Gran Pct Auto 2.4 % (0.0-0.4); Lymphocytes Absolute Auto 0.8 X10*3/uL (1.2-4.9); Lymphocytes Percent Auto 4.9 % (20-40); Mean Corpuscular HGB Conc 30.6 g/dl (31.0-36.0); Mean Corpuscular Hemoglobin 29.8 pg (27.0-33.0); Mean Corpuscular Volume 97.4 fL (80.0-98.0); Mean Platelet Volume 11.3 fL (9.4-12.4); Monocytes Absolute Auto 0.5 X10*3/uL (0.1-1.2); NRBC Pct Auto 0.1 /100WBC (0.0-0.2); Neutrophils Absolute Auto 14.1 x10*3/uL (2.0-8.3); Neutrophils Percent Auto 87.6 % (45-73); Platelet Count 294 X10*3/uL (160-400); Red Blood Count 2.65 X10*6/uL (4.60-5.80); Red Cell Distribution Width 17.9 % (11.0-16.0); White Blood Count 16.1 X10*3/uL (4.8-10.8)
[2021-06-28 22:56] LABS: Troponin-I High Sensitivity 838.7 ng/L (<3.5-35.0)
[2021-06-29] VITALS (19 sets, daily range): BP systolic 71–155; BP diastolic 30–65; PULSE 62–106; RESP 12–29; TEMP 35–36.7; O2SAT 86–100; BMI 35.6
--- NOTE | 2021-06-29 00:55 | PC.NURSE ---
Patient's trops back 755.4 and 838.7, Dr. Cobb notified. 40 IV lasix orderd, repeat EKG ordered and another trop ordered for 0200.
[2021-06-29 03:07] LABS: Troponin-I High Sensitivity 777.3 ng/L (<3.5-35.0)
--- NOTE | 2021-06-29 04:00 | MHC.PIE ---
P.PT PULLED OUT VAZQUEZ CATH I.NOTIFIED THAT PT HAD PULLED OUT VAZQUEZ CATH.TELESITTER IN ROOM.NOT NOTED BY [facility]ER[facility] ROOM.PT OK,VS STABLE.NO S/S BLEEDING. AND NURSING BREAK OUT MAN NOTIFIED. E.CONT TO MONITOR.
[2021-06-29] MEDS: Omeprazole 40 MG CAPSULE.DR PO (05:03)
[2021-06-29 07:23] LABS: MANUAL DIFF FLAG NO
[2021-06-29 07:25] LABS: Glucose, Whole Blood 191 mg/dL (60-115)
[2021-06-29 07:28] LABS: Basophils Absolute Auto 0.1 X10*3/uL (0.0-0.2); Basophils Percent Auto 0.3 % (0-2); Eosinophils Absolute Auto 0.9 X10*3/uL (0.0-0.4); Eosinophils Percent Auto 4.8 % (0-4); Hematocrit 26.2 % (42.0-52.0); Hemoglobin 8.1 g/dl (14.0-18.0); Imm Gran Pct Auto 2.6 % (0.0-0.4); Lymphocytes Absolute Auto 0.9 X10*3/uL (1.2-4.9); Mean Corpuscular HGB Conc 30.9 g/dl (31.0-36.0); Mean Platelet Volume 11.7 fL (9.4-12.4); Monocytes Absolute Auto 0.7 X10*3/uL (0.1-1.2); Monocytes Percent Auto 3.8 % (2-11); NRBC Pct Auto 0.3 /100WBC (0.0-0.2); Neutrophils Absolute Auto 15.8 x10*3/uL (2.0-8.3); Neutrophils Percent Auto 83.5 % (45-73); Platelet Count 301 X10*3/uL (160-400); Red Cell Distribution Width 17.9 % (11.0-16.0); White Blood Count 18.9 X10*3/uL (4.8-10.8)
[2021-06-29 07:47] LABS: Anion Gap 19 (12-20); Blood Urea Nitrogen 70 mg/dL (9-16); Calcium 8.7 mg/dL (8.4-10.2); Carbon Dioxide 24 mmol/L (22-29); Chloride 106 mmol/L (96-108); Creatinine Clr Calc Pharmacy 55.9; Estimated Glomerular Filt Rate 45; Glucose Random 190 mg/dL (60-115); Potassium 3.6 mmol/L (3.3-5.1); Sodium 145 mmol/L (135-145)
--- NOTE | 2021-06-29 08:00 | ECG_ITS ---
Test Reason : paf Blood Pressure : / mmHG Vent. Rate : 084 BPM Atrial Rate : 084 BPM P-R Int : 184 ms QRS Dur : 102 ms QT Int : 366 ms P-R-T Axes : 041 011 168 degrees QTc Int : 432 ms Normal sinus rhythm ST & T wave abnormality, consider lateral ischemia Abnormal ECG When compared with ECG of 28-JUN-2021 21:43, Normal sinus rhythm has replaced Atrial flutter with [address] no longer depressed in Inferior leads ST no longer depressed in Lateral leads T wave inversion no longer evident in Inferior leads Referred By: Hoa Lan Electronically Signed By:NATALIIA ARAIZA MD
[2021-06-29] MEDS: Insulin Lispro 100 UNIT/ML 3 ML VIAL SUBCUT ×2 (08:15→18:06)
[2021-06-29] MEDS: Metoprolol Tartrate 100 MG TABLET PO ×2 (08:15→20:53)
[2021-06-29] MEDS: 0.9 % Sodium Chloride Flush 3 ML SYRINGE IVFLUSH ×2 (08:16→15:50)
[2021-06-29] MEDS: Finasteride 5 MG TABLET PO (08:16)
--- NOTE | 2021-06-29 09:43 | P.PNCA_ITS ---
Subjective Subjective Date of Service: 06/29/21 Principal diagnosis: Congestive heart failure, atrial fibrillation Interval history: Patient overnight continues to be short of breath. Also complains of constant chest pressure. Has been given Lasix but no adequate output. Has been without any venous line. Remains in atrial flutter/atrial fibrillation, rate is better controlled. Troponins were elevated last night but have been down trending. Most likely related to heart failure. EKG does show some lateral ischemic changes could be due to increase LV strain from heart failure. Remains anemic without any significant drop. Review of Systems Constitutional: Reports lethargy Eyes: Reports no additional eye complaints Cardiovascular: Reports chest pain at rest and Reports dyspnea Respiratory: Reports no additional respiratory complaints and Reports dyspnea Gastrointestinal: Reports no additional gastrointestinal complaints Genitourinary: Reports no additional male genitourinary complaints Musculoskeletal: Reports no additional musculoskeletal complaints Skin/Breast: Reports system reviewed and no additional complaints, except as docu Reports system reviewed and no additional complaints, except as documented Psychiatric: Reports no additional psychiatric complaints Endocrine: Reports no additional endocrine complaints Physical Exam Vital Signs: Last Vital Signs Temp 97.4 F 06/29/21 07:25 Pulse 84 06/29/21 07:25 Resp 18 06/29/21 07:25 BP 155/62 H 06/29/21 07:25 Pulse Ox 86 L 06/29/21 07:25 Verdana 4 Oxygen Flow Verdana 4 3 Verdana 4 06/27/21 Rate Verdana 4 10:00 Verdana 4 Verdana 4 BMI result Verdana 4 Body Mass Index Verdana 4 35.6 Verdana 4 Verdana 4 Objective Labs and Meds Result diagrams: 06/29/21 07:13 06/29/21 07:13 Lab results: Laboratory Results - last 24 hr 06/28/21 06/28/21 06/28/21 16:09 19:59 19:59 WBC RBC Hgb Hct MCV MCH MCHC RDW Plt Count MPV Immature Gran % (Auto) Neut % (Auto) Lymph % (Auto) [place] % (Auto) Eos % (Auto) Baso % (Auto) Lymph # (Auto) [place] # (Auto) Eos # (Auto) Baso # (Auto) Abs Immat Gran (auto) Absolute Neuts (auto) Absolute Nucleated RBC Nucleated RBC % (auto) Sodium 147 H Potassium 3.5 Chloride 105 Carbon Dioxide 24 Anion Gap 22 H BUN 73 H Creatinine 1.64 H Estim Creat Clear Calc 51.0 Estimated GFR 41 POC Glucose 184 H Random Glucose 236 H Calcium 8.6 Troponin I High Sens 755.4 H* D B-Natriuretic Peptide 2615 H 06/28/21 06/28/21 06/28/21 20:13 22:24 22:24 WBC 16.1 H RBC 2.65 L Hgb 7.9 L Hct 25.8 L MCV 97.4 MCH 29.8 MCHC 30.6 L RDW 17.9 H Plt Count 294 MPV 11.3 Immature Gran % (Auto) 2.4 H Neut % (Auto) 87.6 H Lymph % (Auto) 4.9 L [place] % (Auto) 3.0 Eos % (Auto) 1.9 Baso % (Auto) 0.2 Lymph # (Auto) 0.8 L [place] # (Auto) 0.5 Eos # (Auto) 0.3 Baso # (Auto) 0.0 Abs Immat Gran (auto) 0.39 H Absolute Neuts (auto) 14.1 H Absolute Nucleated RBC 0.020 H Nucleated RBC % (auto) 0.1 Sodium Potassium Chloride Carbon Dioxide Anion Gap BUN Creatinine Estim Creat Clear Calc Estimated GFR POC Glucose 220 H Random Glucose Calcium Troponin I High Sens 838.7 H* B-Natriuretic Peptide 06/29/21 06/29/21 06/29/21 01:49 07:13 07:13 WBC 18.9 H RBC 2.70 L Hgb 8.1 L Hct 26.2 L MCV 97.0 MCH 30.0 MCHC 30.9 L RDW 17.9 H Plt Count 301 MPV 11.7 Immature Gran % (Auto) 2.6 H Neut % (Auto) 83.5 H Lymph % (Auto) 5.0 L [place] % (Auto) 3.8 Eos % (Auto) 4.8 H Baso % (Auto) 0.3 Lymph # (Auto) 0.9 L [place] # (Auto) 0.7 Eos # (Auto) 0.9 H Baso # (Auto) 0.1 Abs Immat Gran (auto) 0.50 H Absolute Neuts (auto) 15.8 H Absolute Nucleated RBC 0.050 H Nucleated RBC % (auto) 0.3 H Sodium 145 Potassium 3.6 Chloride 106 Carbon Dioxide 24 Anion Gap 19 BUN 70 H Creatinine 1.52 H Estim Creat Clear Calc 55.9 Estimated GFR 45 POC Glucose Random Glucose 190 H Calcium 8.7 Troponin I High Sens 777.3 H* B-Natriuretic Peptide 06/29/21 07:22 WBC RBC Hgb Hct MCV MCH MCHC RDW Plt Count MPV Immature Gran % (Auto) Neut % (Auto) Lymph % (Auto) [place] % (Auto) Eos % (Auto) Baso % (Auto) Lymph # (Auto) [place] # (Auto) Eos # (Auto) Baso # (Auto) Abs Immat Gran (auto) Absolute Neuts (auto) Absolute Nucleated RBC Nucleated RBC % (auto) Sodium Potassium Chloride Carbon Dioxide Anion Gap BUN Creatinine Estim Creat Clear Calc Estimated GFR POC Glucose 191 H Random Glucose Calcium Troponin I High Sens B-Natriuretic Peptide Imaging Radiologist's impression: Impressions Guidance Ultrasound 06/28/21 13:02 IMPRESSION: Successful ultrasound and fluoroscopy-guided placement of a 24-cm long 5-[place] catheter. There is significant retrograde flow seen through the needle and catheter likely secondary to right heart failure or ventricular strain. Findings were communicated to Dr. Noland, the referring physician. Fluoroscopy Time: 2 minutes. Dose Area Product: 5065 cGy-cm2. Sedation Time: 42 minutes. Insertion Tunneled Catheter 06/28/21 13:02 IMPRESSION: Successful ultrasound and fluoroscopy-guided placement of a 24-cm long 5-[place] catheter. There is significant retrograde flow seen through the needle and catheter likely secondary to right heart failure or ventricular strain. Findings were communicated to Dr. Noland, the referring physician. Fluoroscopy Time: 2 minutes. Dose Area Product: 5065 cGy-cm2. Sedation Time: 42 minutes. Progress Note: A&P Assessment and plan (1) Acute heart failure: Status: Acute Assessment and Plan: Patient with acute heart failure and with worsening symptoms and still remains in respiratory distress requiring high levels of oxygen. Provide with supportive care with high oxygen concentration. Nitro paste for preload reduction. Needs more aggressive diuresis. Give Lasix 60 mg IV push stat followed by Lasix drip at 10 mg an hour. Strict intake and output chart needs to be pursued. Continue to monitor electrolytes as well as renal function. His troponin elevation appear to be more secondary to anemia as well as endocardial strain related to heart failure and elevated filling pressures rather than acute [place]. No need for IV heparin at this point in time unless he has recurrent significant bump in troponins. Once his respiratory status improved a little bit I think he will benefit with blood transfusion to help with myocardial oxygen demand. A follow of packed RBC transfusion with Lasix 20 mg. Maintain hematocrit above 30. All prognosis is guarded. If his creatinine improves will add Aldactone to his regimen. Will follow closely with you guys. (2) Persistent atrial fibrillation: Status: Acute Assessment and Plan: Recurrent persistent atrial fibrillation. Has been off oral anticoagulation due to significant GI bleed during this hospitalization. Discussed with GI if oral anticoagulation can be restarted. If this can be restarted, patient will benefit with rhythm control approach. Continue rate control for now with IV Cardizem drip his LV systolic function is normal. Will follow with you. Fall Risk Details Current Medications: Current Medications Finasteride (Finasteride 5 Mg Tablet) 5 mg PO DAILY [facility] Last Admin: 06/29/21 08:16 Dose: 5 mg Documented by: Cefazolin Sodium 1 gm/ Sodium (Chloride) 50 mls @ 100 mls/hr IV Q12H [facility] Last Infusion: 06/29/21 05:59 Dose: Infused Documented by: Diltiazem HCl 125 mg/ Sodium (Chloride) 125 mls @ 0 mls/hr IVCONT .Q0M [facility]; Protocol Last Titration: 06/29/21 04:00 Dose: 0 mg/hr, 0 mls/hr Documented by: Furosemide 200 mg/ Sodium (Chloride) 100 mls @ 5 mls/hr IVCONT .Q20H [facility] Insulin Human Lispro (Insulin Lispro 100 Unit/Ml 3 Ml Vial) 0 unit SUBCUT QIDACHS [facility]; Protocol Last Admin: 06/29/21 08:15 Dose: 2 unit Documented by: Metoprolol Tartrate (Metoprolol Tartrate 100 Mg Tablet) 100 mg PO BID [facility]; Protocol Last Admin: 06/29/21 08:15 Dose: 100 mg Documented by: Nitroglycerin (Nitroglycerin 2 % Oint 1 Gm Packet) 0.5 inch TRANSDERMA RQ6H WHILE AWAKE [facility] Omeprazole (Omeprazole 40 Mg Capsule.Dr) 40 mg PO BID@0630,1630 [facility] Last Admin: 06/29/21 05:03 Dose: 40 mg Documented by: Potassium Chloride (Potassium Chloride Er 20 Meq Tab.Er.Prt) 40 meq PO DAILY [facility] Last Admin: 06/29/21 08:40 Dose: Not Given Documented by: Sodium Chloride (0.9 % Sodium Chloride Flush 3 Ml Syringe) 3 ml IVFLUSH QSHIFT [facility] Last Admin: 06/29/21 08:16 Dose: 3 ml Documented by: Time Spent With Patient Time: Total time spent is greater than 50% in coordination of care (as documented) at patient's floor/unit and/or counseling patient: Time with patient: 25 - 35 minutes Progress Note: Quality Stroke Does the patient have a stroke diagnosis?: No Procedures Date of Service Date of Service: 06/29/21
[2021-06-29] MEDS: Furosemide 100 MG/10 ML VIAL 60 MG IVPUSH (09:45)
[2021-06-29] MEDS: Furosemide 200 MG in 0.9 % Sodium Chloride 80 ML IVCONT ×2 (09:55→22:26)
[2021-06-29] MEDS: Nitroglycerin 2 % Oint 1 GM Packet 0.5 INCH TRANSDERMA (10:05)
--- NOTE | 2021-06-29 11:00 | P.PNNP_ITS ---
Subjective Subjective Date of Service: 06/29/21 Principal diagnosis: CKD. CHF Interval history: Seen and examined, events noted Physical Exam Verdana 4l Vital Signs: Verdana 4d Verdana 4d Vital Signs: Verdana 4d Verdana 4Bd Last Vital Signs Verdana 4d Home Office Claims Examiner New 4d Home Office Claims Examiner New 4d Temp 97.4 F 06/29/21 07:25 Home Office Claims Examiner New 4d Pulse 84 06/29/21 07:25 Home Office Claims Examiner New 4d Resp 18 06/29/21 07:25 BP 155/62 H 06/29/21 07:25 Pulse Ox 97 06/29/21 10:00 Oxygen Flow Rate 15 06/29/21 10:00 BMI result Body Mass Index 35.6 Const: Other: Gen:? Awake alert, in no acute distress HEENT: sclera anicteric, moist mucus membranes Neck: supple, LIJ CVC Lungs: diminished bilateral bases, no respiratory distress Heart: irregular rate and rhythm, no murmurs Abd: soft, non-tender, non-distended Ext: no edema Skin: warm/well-perfused Neuro: alert and oriented x3, no focal findings Psych: appropriate affect ? General: cooperative, comfortable, no acute distress, alert, awake, ill appearing and other ( sedated on the vent, arousable with sedation vacation) Nutritional Appearance: obese Orientation/consciousness: patient oriented x3 HENMT: Head: Yes normal to inspection Eyes: Sclerae: sclerae normal EOM: EOMs intact bilaterally Neck: Neck: Yes no lymphadenopathy, Yes trachea midline, Yes supple and Yes no JVD Resp: Other: On ventilator Effort & Inspection: normal respiratory effort, decreased respiratory effort and no respiratory distress Auscultation: crackles ( Bibasilar), no rales, no wheezes and diminished lung sounds Cardio: Other: irregular, AFib Jugular venous distension: no JVD Rate: regular rate and tachycardic Rhythm: regular rhythm and abnormal rhythm irregularly irregular Heart sounds: S1 normal heart sound present, S2 normal heart sound present, no click, no gallops, no murmurs and no rubs GI: Other: abdomen is soft and without masses Palpation (GI): Soft to palpation, not firm, nontender, no guarding, not rigid and Other GI palpation findings present ( Nontender) Auscultation: normal bowel sounds Skin: General skin exam: no rashes or lesions noted Neuro: General: patient oriented x3 and no focal motor deficits Extrem: General: Yes normal to inspection, Yes no clubbing, cyanosis or edema, Yes no pedal edema, No clubbing, No cyanosis and Yes pedal edema ( 1+ bilateral) Psych: Appearance: grossly normal Objective Data Labs CBC & Chem 7: 06/29/21 07:13 06/29/21 07:13 Labs: Laboratory Results - last 24 hr 06/28/21 06/28/21 06/28/21 16:09 19:59 19:59 WBC RBC Hgb Hct MCV MCH MCHC RDW Plt Count MPV Immature Gran % (Auto) Neut % (Auto) Lymph % (Auto) [place] % (Auto) Eos % (Auto) Baso % (Auto) Lymph # (Auto) [place] # (Auto) Eos # (Auto) Baso # (Auto) Abs Immat Gran (auto) Absolute Neuts (auto) Absolute Nucleated RBC Nucleated RBC % (auto) Sodium 147 H Potassium 3.5 Chloride 105 Carbon Dioxide 24 Anion Gap 22 H BUN 73 H Creatinine 1.64 H Estim Creat Clear Calc 51.0 Estimated GFR 41 POC Glucose 184 H Random Glucose 236 H Calcium 8.6 Troponin I High Sens 755.4 H* D B-Natriuretic Peptide 2615 H 06/28/21 06/28/21 06/28/21 20:13 22:24 22:24 WBC 16.1 H RBC 2.65 L Hgb 7.9 L Hct 25.8 L MCV 97.4 MCH 29.8 MCHC 30.6 L RDW 17.9 H Plt Count 294 MPV 11.3 Immature Gran % (Auto) 2.4 H Neut % (Auto) 87.6 H Lymph % (Auto) 4.9 L [place] % (Auto) 3.0 Eos % (Auto) 1.9 Baso % (Auto) 0.2 Lymph # (Auto) 0.8 L [place] # (Auto) 0.5 Eos # (Auto) 0.3 Baso # (Auto) 0.0 Abs Immat Gran (auto) 0.39 H Absolute Neuts (auto) 14.1 H Absolute Nucleated RBC 0.020 H Nucleated RBC % (auto) 0.1 Sodium Potassium Chloride Carbon Dioxide Anion Gap BUN Creatinine Estim Creat Clear Calc Estimated GFR POC Glucose 220 H Random Glucose Calcium Troponin I High Sens 838.7 H* B-Natriuretic Peptide 06/29/21 06/29/21 06/29/21 01:49 07:13 07:13 WBC 18.9 H RBC 2.70 L Hgb 8.1 L Hct 26.2 L MCV 97.0 MCH 30.0 MCHC 30.9 L RDW 17.9 H Plt Count 301 MPV 11.7 Immature Gran % (Auto) 2.6 H Neut % (Auto) 83.5 H Lymph % (Auto) 5.0 L [place] % (Auto) 3.8 Eos % (Auto) 4.8 H Baso % (Auto) 0.3 Lymph # (Auto) 0.9 L [place] # (Auto) 0.7 Eos # (Auto) 0.9 H Baso # (Auto) 0.1 Abs Immat Gran (auto) 0.50 H Absolute Neuts (auto) 15.8 H Absolute Nucleated RBC 0.050 H Nucleated RBC % (auto) 0.3 H Sodium 145 Potassium 3.6 Chloride 106 Carbon Dioxide 24 Anion Gap 19 BUN 70 H Creatinine 1.52 H Estim Creat Clear Calc 55.9 Estimated GFR 45 POC Glucose Random Glucose 190 H Calcium 8.7 Troponin I High Sens 777.3 H* B-Natriuretic Peptide 06/29/21 07:22 WBC RBC Hgb Hct MCV MCH MCHC RDW Plt Count MPV Immature Gran % (Auto) Neut % (Auto) Lymph % (Auto) [place] % (Auto) Eos % (Auto) Baso % (Auto) Lymph # (Auto) [place] # (Auto) Eos # (Auto) Baso # (Auto) Abs Immat Gran (auto) Absolute Neuts (auto) Absolute Nucleated RBC Nucleated RBC % (auto) Sodium Potassium Chloride Carbon Dioxide Anion Gap BUN Creatinine Estim Creat Clear Calc Estimated GFR POC Glucose 191 H Random Glucose Calcium Troponin I High Sens B-Natriuretic Peptide Microbiology Microbiology Results: Microbiology 06/19/21 14:54 Blood - Venous Blood Culture - Final No growth after 5 days. 06/19/21 14:55 Blood - Venous Blood Culture - Final No growth after 5 days. 06/09/21 17:15 Blood - Venous Blood Culture - Final Staphylococcus aureus 06/09/21 17:10 Blood - Venous Blood Culture - Final Staphylococcus aureus 06/08/21 23:11 Blood - Venous Blood Culture - Final Staphylococcus aureus 06/08/21 23:11 Blood - Venous Blood Culture - Final Staphylococcus aureus Procedures Date of Service Date of Service: 06/29/21 Assessment & Plan Assessment and plan (1) Acute respiratory distress syndrome (ARDS) due to COVID-19 virus: Status: Acute (2) Morbid obesity: Status: Acute (3) Acute hypoxemic respiratory failure: Status: Acute (4) GI bleed: Status: Acute (5) Hypotension: Status: Acute (6) Atrial fibrillation with rapid ventricular response: Status: Acute Plan 76yo M with HTN, HLD, DM2, BPH, obesity admitted with breakthrough Covid-19 infection, AF/RVR, MSSA bacteremia developed hemorrhagic shock from large GI bleed 1. ROBIN: ques at new BSL 2. Incr Bun/Cr ratio: suspect IV vol depleted; other poss is UGIB but that prob has passed ? 3. Ques renal mass on U/S: will need eval in future with renal mass protocol CT or MRI 4. Vol status: still appears vol overloaded with incr BNP; lasix r/s but UOP marinal at this time REC: track UOP/renal func; avoid NToxins; incr lasix as per card, can add aldactone 25qd; consider adding SGLT2i ( arxiga as outp t for +CV/renal protetion); I added on Fe studies if needs iv access for ABX prefer Plaza over PIC--but if pic placed then use dominant arm will follow clsoley with team Time Spent With Patient Time: Total time spent is greater than 50% in coordination of care (as documented) at patient's floor/unit and/or counseling patient: Progress Note: Quality Stroke Does the patient have a stroke diagnosis?: No
--- NOTE | 2021-06-29 11:12 | MHC.SL.SWA ---
Speech Pathologist Impression: Risk of Aspiration Risk of Aspiration Due to: Hx of Recent Extubation Dysphasia Diet Status: Upgrade Liquid Consistency and Strategies for Safe Swallow: Liquid Intake Recommendation: Thin Liquid Intake Strategies: Small Sips No Straws Solid Food Consistency: Dietary Recommendations: Grnd/Mech Altered (NDD2) Additional Modifications to Solid Foods: Add extra sauces/gravies Oral Medication Intake: Crushed with Puree Compensatory Strategies and Precautions to be Taken for Safe Swallow: Sitting Upright (90 deg) No Straw Liquids from Cup Small Bites and Sips Alternate Liquids/Solids Oral Check Supervision While Eating and Drinking for Safe Swallow: Total Supervision (1:1) Foods to Avoid: Swallowing Recommended Treatments: Compens. Strategy Educat. Recommendation for Speech: Inpatient Speech Therapy Comment: Pt seen this morning to follow-up on toleration of recommended diet of Regular w/thin liquids. Nursing reported that Pt has been having difficulty w/pills, currently being given in puree. Pt pocketed one of the larger pills given in yogurt, Nurse removed the pill from his mouth. Pt currently on a non-rebreather, Nursing elected to keep it in place and removed when taking trials of liquid, food. Pt presents as markedly weaker than when first assessed, limited verbalization. Can of diet thompson juju w/straw was present at bedside, Pt was asked to take straw sip. Pt initially had difficulty creating adequate suction/pressure to propel liquid in straw, then took two successive sips, w timely swallow initiated on both sips. Pt coughed after a delay, difficult to determine if cough was in response to liquid or functional respiratory status. Pt accepted a teaspoon of puree. Pt had long oral phase, w/mashing of puree in mouth, significant delay initiating swallow, and oral residue of puree after swallow in oral cavity. Pt. given tsp of liquid to help clear puree from mouth. RECOMMEND DOWNGRADE of diet from REGULAR to GROUND/MECHANICAL-Altered (NDD2) continue with THIN liquids, w/ Pills CRUSHED in PUREE. Pt may need liquid wash to clear solids from mouth. Recommend NO STRAWS, Small Sips and bites, alternate liquid and solid, and full supervision during meals w/ close monitor for signs of aspiration, periodic oral check. SWITCHBOARD OPERATOR RECEPTIONIST downgraded diet in EXPANSE, sent recommendation via secure text to MD, Nursing, Relocation Specialist Date Range for Service Req: M-F Timeline to reassess: Cost Control Supervisor Clinican/Clinical Fellow: No Supervisory Statement: I have reviewed and agree with the student/clinical fellow's documentation: N/A Speech Language Pathologist: Ashlyn Bliss M.A., CCC-SWITCHBOARD OPERATOR RECEPTIONIST
[2021-06-29 11:25] LABS: Iron 40 mcg/dL (45-160); Percent Iron Saturation 24 % (15-50); Total Iron Binding Capacity 166 mcg/dL (228-428); Unsaturated Iron Binding 126 ug/dL
[2021-06-29 11:28] LABS: Glucose, Whole Blood 222 mg/dL (60-115)
[2021-06-29 12:21] LABS: Ferritin 1837 ng/mL (20-250)
[2021-06-29] MEDS: fentaNYL citrate/PF 100 MCG/2 ML VIAL IVPUSH (12:30)
[2021-06-29] MEDS: Midazolam HCl/PF 2 MG/2 ML VIAL IVPUSH (12:30)
[2021-06-29] MEDS: propofoL 200 MG/20 ML VIAL 60 MG IVPUSH (12:30)
--- NOTE | 2021-06-29 12:43 | P.PNIM_ITS ---
Subjective Subjective Date of Service: 06/29/21 Interval History: Events from last night reviewed, Patient complaining of shortness of breath and chest pain this morning, denies palpitation, no lightheadedness, no dizziness, no diaphoresis. Review of Systems Review of Systems: Yes all other systems are reviewed and are negative Physical Exam Verdana 4l Vital Signs: Verdana 4d Verdana 4d Vital Signs: Verdana 4d Verdana 4Bd Last Vital Signs Verdana 4d Market Analysis Director New 4d Market Analysis Director New 4d Temp 97.4 F 06/29/21 11:25 Market Analysis Director New 4d Pulse 75 06/29/21 12:37 Market Analysis Director New 4d Resp 20 06/29/21 11:25 BP 81/38 L 06/29/21 12:37 Pulse Ox 97 06/29/21 12:37 Oxygen Flow Rate 15 06/29/21 10:00 BMI result Body Mass Index 35.6 Const: Other: Gen:? Awake alert, in acute respiratory distress, able to talk in full sentences HEENT: sclera anicteric, moist mucus membranes Neck: supple,+ jvd Lungs: Coarse breath sounds, no crackles, tachypnea Heart: irregular, no murmurs Abd: soft, non-tender, obese Ext: trace edema Skin: significant pressure injury both buttocks right greater than left is stage II coccyx. Neuro: alert and oriented x3, no focal findings Psych: appropriate affect Objective Data Active Medications Finasteride (Finasteride 5 Mg Tablet) 5 mg PO DAILY [facility] Last Admin: 06/29/21 08:16 Dose: 5 mg Documented by: CHARLENE Cefazolin Sodium 1 gm/ Sodium (Chloride) 50 mls @ 100 mls/hr IV Q12H [facility] Last Infusion: 06/29/21 05:59 Dose: 0 mls/hr Documented by: HARRIS Diltiazem HCl 125 mg/ Sodium (Chloride) 125 mls @ 0 mls/hr IVCONT .Q0M [facility]; Protocol Last Titration: 06/29/21 04:00 Dose: 0 mg/hr, 0 mls/hr Documented by: HARRIS Furosemide 200 mg/ Sodium (Chloride) 100 mls @ 5 mls/hr IVCONT .Q20H [facility] Last Admin: 06/29/21 09:55 Dose: 10 mg/hr, 5 mls/hr Documented by: CHARLENE Insulin Human Lispro (Insulin Lispro 100 Unit/Ml 3 Ml Vial) 0 unit SUBCUT QIDACHS [facility]; Protocol Last Admin: 06/29/21 08:15 Dose: 2 unit Documented by: CHARLENE Metoprolol Tartrate (Metoprolol Tartrate 100 Mg Tablet) 100 mg PO BID [facility]; Protocol Last Admin: 06/29/21 08:15 Dose: 100 mg Documented by: CHARLENE Nitroglycerin (Nitroglycerin 2 % Oint 1 Gm Packet) 0.5 inch TRANSDERMA RQ6H WHI LE AWAKE [facility] Last Admin: 06/29/21 10:05 Dose: 0.5 inch Documented by: CHARLENE Omeprazole (Omeprazole 40 Mg Capsule.Dr) 40 mg PO BID@0630,1630 [facility] Last Admin: 06/29/21 05:03 Dose: 40 mg Documented by: HARRIS Potassium Chloride (Potassium Chloride Er 20 Meq Tab.Er.Prt) 40 meq PO DAILY [facility] Last Admin: 06/29/21 08:40 Dose: Not Given Documented by: CHARLENE Non-Admin Reason: pt unable to swallow Sodium Chloride (0.9 % Sodium Chloride Flush 3 Ml Syringe) 3 ml IVFLUSH QSHIFT [facility] Last Admin: 06/29/21 08:16 Dose: 3 ml Documented by: CHARLENE Labs CBC & Chem 7: 06/29/21 07:13 06/29/21 07:13 Labs: Laboratory Results - last 24 hr 06/28/21 06/28/21 06/28/21 16:09 19:59 19:59 MCV MCH MCHC RDW Plt Count MPV Immature Gran % (Auto) Neut % (Auto) Lymph % (Auto) [place] % (Auto) Eos % (Auto) Baso % (Auto) Lymph # (Auto) [place] # (Auto) Eos # (Auto) Baso # (Auto) Abs Immat Gran (auto) Absolute Neuts (auto) Absolute Nucleated RBC Nucleated RBC % (auto) Anion Gap 22 H Estim Creat Clear Calc 51.0 Estimated GFR 41 POC Glucose 184 H Random Glucose 236 H Calcium 8.6 Iron TIBC % Saturation Unsat Iron Binding Ferritin Troponin I High Sens 755.4 H* D B-Natriuretic Peptide 2615 H 06/28/21 06/28/21 06/28/21 20:13 22:24 22:24 MCV 97.4 MCH 29.8 MCHC 30.6 L RDW 17.9 H Plt Count 294 MPV 11.3 Immature Gran % (Auto) 2.4 H Neut % (Auto) 87.6 H Lymph % (Auto) 4.9 L [place] % (Auto) 3.0 Eos % (Auto) 1.9 Baso % (Auto) 0.2 Lymph # (Auto) 0.8 L [place] # (Auto) 0.5 Eos # (Auto) 0.3 Baso # (Auto) 0.0 Abs Immat Gran (auto) 0.39 H Absolute Neuts (auto) 14.1 H Absolute Nucleated RBC 0.020 H Nucleated RBC % (auto) 0.1 Anion Gap Estim Creat Clear Calc Estimated GFR POC Glucose 220 H Random Glucose Calcium Iron TIBC % Saturation Unsat Iron Binding Ferritin Troponin I High Sens 838.7 H* B-Natriuretic Peptide 06/29/21 06/29/21 06/29/21 01:49 07:13 07:13 MCV 97.0 MCH 30.0 MCHC 30.9 L RDW 17.9 H Plt Count 301 MPV 11.7 Immature Gran % (Auto) 2.6 H Neut % (Auto) 83.5 H Lymph % (Auto) 5.0 L [place] % (Auto) 3.8 Eos % (Auto) 4.8 H Baso % (Auto) 0.3 Lymph # (Auto) 0.9 L [place] # (Auto) 0.7 Eos # (Auto) 0.9 H Baso # (Auto) 0.1 Abs Immat Gran (auto) 0.50 H Absolute Neuts (auto) 15.8 H Absolute Nucleated RBC 0.050 H Nucleated RBC % (auto) 0.3 H Anion Gap 19 Estim Creat Clear Calc 55.9 Estimated GFR 45 POC Glucose Random Glucose 190 H Calcium 8.7 Iron 40 L TIBC 166 L % Saturation 24 Unsat Iron Binding 126 Ferritin 1837 H Troponin I High Sens 777.3 H* B-Natriuretic Peptide 06/29/21 06/29/21 07:22 11:24 MCV MCH MCHC RDW Plt Count MPV Immature Gran % (Auto) Neut % (Auto) Lymph % (Auto) [place] % (Auto) Eos % (Auto) Baso % (Auto) Lymph # (Auto) [place] # (Auto) Eos # (Auto) Baso # (Auto) Abs Immat Gran (auto) Absolute Neuts (auto) Absolute Nucleated RBC Nucleated RBC % (auto) Anion Gap Estim Creat Clear Calc Estimated GFR POC Glucose 191 H 222 H Random Glucose Calcium Iron TIBC % Saturation Unsat Iron Binding Ferritin Troponin I High Sens B-Natriuretic Peptide Assessment and Plan (1) Acute respiratory distress syndrome (ARDS) due to COVID-19 virus: Status: Acute (2) Morbid obesity: Status: Acute (3) Acute hypoxemic respiratory failure: Status: Acute (4) GI bleed: Status: Acute (5) Hypotension: Status: Acute (6) Atrial fibrillation with rapid ventricular response: Status: Acute Plan 76yo M with HTN, HLD, DM2, BPH, obesity admitted with breakthrough Covid-19 infection, AF/RVR, MSSA bacteremia developed hemorrhagic shock from large GI bleed and transferred to ICU EGD 06/[address] Mae under GETA: multiple duodenal ulcers, active bleeding from a visible vessel in a 15x20 mm ulcer, bleeding controlled with 3ml epinephrine and gold probe cautery remained intubated after EGD, required norepinephrine and 2u PRBCs extubated 06/19/20, stepped down to IMC 06/20 # acute respiratory distress with hypoxic respiratory failure due to acute on chronic diastolic heart failure Patient noted to be in respiratory distress at noon, using abdominal muscles, with shallow breathing oxygenation dropped down to 70 on 100% non-rebreather Therefore stat ABGs ordered, patient placed on BiPAP informed ICU rapid response called and patient subsequently transferred to intensive care unit for intubation Call patient's Fiorella [phone] and updated her about patient's c urrent clinical condition. Since yesterday evening patient was noted to be in intermittent atrial fibrillation with RVR, therefore was placed on IV Cardizem drip, IV Lasix b.i.d. and metoprolol was continue recent limited echo Showed EF 50-60% and grade 2 diastolic dysfunction, EKG from yesterday showed ST and T-wave changes in inferior lateral leads, troponins were elevated, but was felt related to atrial fibrillation, and secondary to anemia as well as heart failure and elevated filling pressures rather than acute NC and therefore IV heparin was not ordered. This morning the patient was placed on IV Lasix drip, nitrate by Cardiology and plan was to transfuse 1 unit of packed RBC to keep hematocrit above 30. # AF/RVR Intermittent episodes of atrial fibrillation with rapid ventricular response on metoprolol 100 mg b.i.d., patient now in normal sinus rhythm ventricular rate in 70s, IV Cardizem discontinued this morning anticoagulation deferred for at least a month pending GI f/u and likely repeat C-scope to ensure healing of duodenal ulcers, # acute/chronic HFpEF continue IV Lasix drip, significantly elevated BNP 2211, chest x-ray shows finding similar to June 17 questionable for CHF,patient not on home diuretics, follow BNP and BMP strict I's and O's # MSSA bacteremia, / BCx from 06/08-06/09, unclear source.? repeat BCx from 06/19/21 negative times 48 hours, s/p IV nafcillin, changed to IV cefazolin due to rising creatinine, on d#11 as per ID , no vegetations on TTE?06/12/21, Plaza placed 06/28 for prolong iv antibiotics, patient pulled Plaza catheter last night. # hemorrhagic shock and anemia due to GI blood loss from duodenal ulcer, continue bid PPI, will need repeat EGD, need follow-up with gastroenterology # Covid-19 pneumonia not treated with steroids due to duodenal ulcer . # dysphagia s/p extubation seen by speech therapy they downgrade diet consistency from regular to ground mechanical with pills crushed in pureed and recommend to continue thin liquids with no straws # ROBIN likely ischemic ATN vs excess diuresis improved, serum creatinine then increased, likely due to nafcillin + diuresis; improved with switching to cefazolin and discontinuing diuresis Follow renal function while being diuresed # thrombocytopenia - resolved # prostatism - continue finasteride # DM2 - as on glipizide 10 mg by mouth b.i.d. and pioglitazone once daily, on diabetic diet and correction-dose lispro # stage II coccyx and bilateral buttock pressure injury right greater than left frequent position change, high-protein diet and barrier cream/ # VTE ppx - SCDs # dispo to ICU for higher level of care Quality Stroke Does the patient have a stroke diagnosis?: No VTE Prior VTE?: No VTE Risk Level:: Medical - moderate - high VTE Device Contraindication: Treatment Not Indicated VTE Drug Contraindication: Treatment Not Indicated
[2021-06-29] MEDS: propofoL 1,000 MG/100 ML VIAL 21.46 MG IVCONT ×2 (12:45→16:30)
--- NOTE | 2021-06-29 14:25 | P.PNCC_ITS ---
Subjective Subjective Date of Service: 06/29/21 Interval History: Mr. Slade was transferred emergently to the ICU with impending respiratory arrest. The patient is a 76 yo M with a past medical history of obesity, hypertension, hyperlipidemia, diabetes, BPH, and arthritis. The pt presented to the hospital on Jun 08 with a chief complaint of generalized weakness x past week or two.? Not feeling well, shortness of breath, dyspnea on exertion, cough but no sputum production.? Was vaccinated including a booster dose. In the ED, the patient was in new Afib w RVR, Sat 94% on room air (baseline 98% on room air); bilateral rales and wheezing.? COVID-19 positive; CXR showed nonspecific increased bibasilar markings with blunting of both angles.? WBC 19, DDimer 3200, BUN/creat 91/2.7 (baseline about 20/1.1).? Trop 46, BNP 300.? CXR had questionable small basilar infiltrates. Tx with diltiazem, metoprolol and admitted to Medicine.? Put on full dose Lovenox for the Afib.? Blood cx came back positive for MSSA.? On vanco.? Renal indices not signif improved with initial tx.? Perfusion scan showed low probability.? Did not require supplemental oxygen. On Jun 10 had a black BM and dropped his blood pressure.? Hemoglobin down to 10.? Was volume resuscitated and given blood later that night.? Later on blood pressure dropped further, and hemoglobin dropped to the 7 range.? He was transferred to the ICU and given more blood and protamine.? He was taken to the OR by Dr. Mae on June 11 for EGD under GETA.? Found multiple duodenal ulcers, w active bleeding from a visible vessel in a 15x20 mm ulcer at the junction between bulb and second duodenum.? Bleeding controlled with epinephrine and gold probe cautery. Was brought back to the ICU still intubated, in hemorrhagic shock.? HB down to 6.7.? Transfused further and tx w pressors.? Lactate normalized.? Creatinine bumped slightly.? Took days to stabilize and then for his mental status to improve.? He was diuresed and then extubated on Jun 19, tx to IM on Jun 20. Subsequent course complicated by atrial fibrillation with RVR.? He required supplemental oxygen, probably secondary to fluid overload.? His chest x-rays never showed anything that looked like COVID lung (and he never had a chest CT), and he was never given any tx for COVID (eg. steroids).? Was treated for pulmonary edema 2? fluid overload from his vol resuscitation.? Also difficulty managing his Afib w RVR, and his ROBIN.? MSSA bacteremia tx w Nafcillin, then changed to cefazolin.? Plaza catheter placed yesterday for long-term antibiotics, but the patient pulled that out last night. About noon time today patient noted to be in respiratory distress, with shallow breathing.? Sat dropped down to 70% on a non-rebreather face mask.? I was called stat to see the patient.? On my arrival to the 4th floor, the patient was obtained did, with barely a grimace to a heart facial slap.? Spontaneous respirations were very shallow.? The BiPAP was being put on.? The patient was also noted to be mottled in the lower extremities.? After the BiPAP was put on with 100% oxygen, the sat was low 90s with a heart rate 60?s, BP 135/59.? We were about to intubate the patient up on the floor, but with his respiratory pattern stabilized on the BiPAP, with adequate excursion and tidal volume, we transferred him down to ICU on BiPAP. In the ICU, he was opening his eyes, and moving his arms, but not responsive.? Therefore went ahead and intubated him (see separate procedure).? Following that I echoed him at the bedside. ECHOCARDIOGRAM for hemodynamic monitoring: Image quality:? Good.? Findings: 1. The patient is in SR. 2. Mild LVH. 3. LV cavity size may be dilated, with slight global hypocontractility, EF 45- 50%.? No RWMAs. 4. RV size mildly dilated. 5. Atria not adequately assessed. 6. AoV is trileaflet with at least 3+ AI by color garett. 7. MV morphologically normal with 1-2+ MR by color garett. 8. TV morphologically normal.? Trace TR by color flow.? CWD signal measured 3.5 m/sec (gradient 49mm). 9. IVC 2.6cm w minimal insp collapse.? Estimated CVP 15cm.? RVSP estimate 64mm. Following that, a CVL was placed (see separate procedure).? Labs drawn at 14:36 as below.? Notably, white count is stable at 18, hemoglobin is down to 7.6, D- dimer is down to 2000, BUN/creatinine are 69/1.6, lactic acid 1.1, troponin down to 720, BNP down slightly to 2400, PCT 0.1.? Venous blood gas shows 7.40/47/+4.? Chest x-ray shows bilateral perihilar airspace disease and small bilateral pleural effusions. These findings are new or increased compared to previous exam of Jun 26. Currently, on propofol sedation, HR is 71, SR.? BP is 149/46 on Levophed 0.05ug. ?On AC 12/500/40%/+8, RR is 12-14, PIP 28, ETCO2 28, Sat 99%.? No JVD.? 1-2+ anasarca.? The mottling has completely resoved. IMPRESSION: 1. Acute resp failure, with near respiratory arrest:? Can?t be certain what happened about noon today on IMC.? Judging by the lactate and the echo, there was no circulatory or infectious catastrophe.? The CXR, IMO, shows significant CHF.? (It could also be severe COVID, but his course prior to today and his curr ent A-a gradient on the ventilator are inconsistent with severe COVID).? So most likely today?s event was hypoxemia with ventilatory failure 2? CHF.? The CXR is c/w severe CHF, but why the event occurred seemingly suddently is unclear.? (I also don?t think the CXR is aspiration or bacterial pneumonia, because those are inconsistent with his current hemodynamics and A-a gradient, and current lack of toxicity. 2. Right heart failure/PHTN with probably diastolic CHF.? No surprise given his obesity and probable CYNDI, given his head/neck habitus. I?m continuing the Lasix drip. 3. PAfib.? Now in SR.? Continuing the metoprolol.? Will heparinize, per Dr. Rodriguez.? (Aware of the prior GI bleed.) 4. ACS.? Trop?s running high throughout this hospitalization, and 7-800?s since last night.? EKG this morning notable for lateral Tw inversion, with maybe 1mm ST depr in leads V5-6.? No signif change from the last few tracings back to 06/27.? Echo shows no RWMAs.? D/W Dr. Rodriguez, he thinks it?s 2? CHF and recommended heparinization. 5. New severe AI.? Furthermore, his LV cavity looks a little dilated to me.? Shun given his bacteremia, we need to do a CHRIS.? Discussed with Dr. Rodriguez.? He will review tomorrow.? I have drawn new blood cultures. 6. ROBIN.? The renal ratio suggests RHF/cardiorenal syndrome.? We?ll diurese him and see what happens with his renal indices. 7. s/p GI bleed: ?Stable, no evidence of further bleeding since Jun 11.? On bid PPI. 8. Anemia.? His Hb should improve with diuresis.? But since he may have ACS, I?ll give him 1 unit RBCs now. 9. ID.? MSSA bacteremia.? ? if he has a vegetation.? Plan echo tomorrow.? New BC?s pending. 10. COVID.? When he came in, room air SpO2 was 94%, vs baseline 98%.? So it?s correct to say that he has COVID ?pneumonia?, but doesn?t seem to be clinically significant at this time. 11. DM.? On SS Lispro. 12. Stage II pressure ulcer on coccyx/bilat buttock.? Nurses and wound nurse following. 13. No evidence of sepsis.? Hypotension in ICU 2? to meds given for intubation. Critical care time (inlcud full chart rev, hosp course summary, mult visits to bedside, mult d/w Dr. Rodriguez; excluding procedures):? 120+ min. Critical Care Time (minutes): 120 Physical Exam Verdana 4l Vital Signs: Verdana 4d Verdana 4d Vital Signs: Verdana 4d Verdana 4Bd Last Vital Signs Verdana 4d Creche Attendant New 4d Creche Attendant New 4d Temp 97.4 F 06/29/21 11:25 Creche Attendant New 4d Pulse 75 06/29/21 12:37 Creche Attendant New 4d Resp 20 06/29/21 11:25 BP 81/38 L 06/29/21 12:37 Pulse Ox 97 06/29/21 12:37 Oxygen Flow Rate 15 06/29/21 10:00 BMI result Body Mass Index 35.6 Objective Data Labs CBC & Chem 7: 06/30/21 05:24 06/30/21 05:25 Labs: Laboratory Results - last 24 hr 06/28/21 06/28/21 06/28/21 16:09 19:59 19:59 WBC RBC Hgb Hct MCV MCH MCHC RDW Plt Count MPV Immature Gran % (Auto) Neut % (Auto) Lymph % (Auto) [place] % (Auto) Eos % (Auto) Baso % (Auto) Lymph # (Auto) [place] # (Auto) Eos # (Auto) Baso # (Auto) Abs Immat Gran (auto) Absolute Neuts (auto) Absolute Nucleated RBC Nucleated RBC % (auto) Sodium 147 H Potassium 3.5 Chloride 105 Carbon Dioxide 24 Anion Gap 22 H BUN 73 H Creatinine 1.64 H Estim Creat Clear Calc 51.0 Estimated GFR 41 POC Glucose 184 H Random Glucose 236 H Calcium 8.6 Iron TIBC % Saturation Unsat Iron Binding Ferritin Troponin I High Sens 755.4 H* D B-Natriuretic Peptide 2615 H 06/28/21 06/28/21 06/28/21 20:13 22:24 22:24 WBC 16.1 H RBC 2.65 L Hgb 7.9 L Hct 25.8 L MCV 97.4 MCH 29.8 MCHC 30.6 L RDW 17.9 H Plt Count 294 MPV 11.3 Immature Gran % (Auto) 2.4 H Neut % (Auto) 87.6 H Lymph % (Auto) 4.9 L [place] % (Auto) 3.0 Eos % (Auto) 1.9 Baso % (Auto) 0.2 Lymph # (Auto) 0.8 L [place] # (Auto) 0.5 Eos # (Auto) 0.3 Baso # (Auto) 0.0 Abs Immat Gran (auto) 0.39 H Absolute Neuts (auto) 14.1 H Absolute Nucleated RBC 0.020 H Nucleated RBC % (auto) 0.1 Sodium Potassium Chloride Carbon Dioxide Anion Gap BUN Creatinine Estim Creat Clear Calc Estimated GFR POC Glucose 220 H Random Glucose Calcium Iron TIBC % Saturation Unsat Iron Binding Ferritin Troponin I High Sens 838.7 H* B-Natriuretic Peptide 0106/29/21 06/29/21 01:49 07:13 07:13 WBC 18.9 H RBC 2.70 L Hgb 8.1 L Hct 26.2 L MCV 97.0 MCH 30.0 MCHC 30.9 L RDW 17.9 H Plt Count 301 MPV 11.7 Immature Gran % (Auto) 2.6 H Neut % (Auto) 83.5 H Lymph % (Auto) 5.0 L [place] % (Auto) 3.8 Eos % (Auto) 4.8 H Baso % (Auto) 0.3 Lymph # (Auto) 0.9 L [place] # (Auto) 0.7 Eos # (Auto) 0.9 H Baso # (Auto) 0.1 Abs Immat Gran (auto) 0.50 H Absolute Neuts (auto) 15.8 H Absolute Nucleated RBC 0.050 H Nucleated RBC % (auto) 0.3 H Sodium 145 Potassium 3.6 Chloride 106 Carbon Dioxide 24 Anion Gap 19 BUN 70 H Creatinine 1.52 H Estim Creat Clear Calc 55.9 Estimated GFR 45 POC Glucose Random Glucose 190 H Calcium 8.7 Iron 40 L TIBC 166 L % Saturation 24 Unsat Iron Binding 126 Ferritin 1837 H Troponin I High Sens 777.3 H* B-Natriuretic Peptide 06/29/21 06/29/21 07:22 11:24 WBC RBC Hgb Hct MCV MCH MCHC RDW Plt Count MPV Immature Gran % (Auto) Neut % (Auto) Lymph % (Auto) [place] % (Auto) Eos % (Auto) Baso % (Auto) Lymph # (Auto) [place] # (Auto) Eos # (Auto) Baso # (Auto) Abs Immat Gran (auto) Absolute Neuts (auto) Absolute Nucleated RBC Nucleated RBC % (auto) Sodium Potassium Chloride Carbon Dioxide Anion Gap BUN Creatinine Estim Creat Clear Calc Estimated GFR POC Glucose 191 H 222 H Random Glucose Calcium Iron TIBC % Saturation Unsat Iron Binding Ferritin Troponin I High Sens B-Natriuretic Peptide Microbiology Microbiology Results: Microbiology 06/19/21 14:54 Blood - Venous Blood Culture - Final No growth after 5 days. 06/19/21 14:55 Blood - Venous Blood Culture - Final No growth after 5 days. 06/09/21 17:15 Blood - Venous Blood Culture - Final Staphylococcus aureus 06/09/21 17:10 Blood - Venous Blood Culture - Final Staphylococcus aureus 06/08/21 23:11 Blood - Venous Blood Culture - Final Staphylococcus aureus 06/08/21 23:11 Blood - Venous Blood Culture - Final Staphylococcus aureus Quality Stroke Does the patient have a stroke diagnosis?: No VTE Prior VTE?: No VTE Risk Level:: Medical - moderate - high VTE Device Contraindication: Treatment Not Indicated VTE Drug Contraindication: Treatment Not Indicated Critical Care Time Critical Care Time (minutes): 120
--- NOTE | 2021-06-29 14:25 | W.PM.CCHP ---
Procedures Date of Service Date of Service: 06/29/21 Intubation Intubation Comments: PROCEDURE NOTE:? Emergent tracheal intubation. INDICATIONS:? Gross ventilatory and respiratory failure. Anesthesia:? Propofol, Zemuron, Versed. Procedure:? The patient was brought down to the ICU on BiPAP. The patient was preoxygenated on the BiPAP. Propofol and Zemuron were administered, followed by video laryngocopy with the Proview with MAC 3 blade. There was excellent visualization of the glottis. The trachea was intubated atraumatically with a size 8 endotracheal tube, advanced under video to the 26 samson at the upper lip. Quantitative end-tidal CO2 was about 33. The endotracheal tube was secured. The patient was given Versed 2mg following the procedure. The patient kayla the procedure well with no complications.? Post op chest x-ray showed the tube in good position.
[2021-06-29 14:41] LABS: VBG Base Excess 4.8 mmol/L; VBG HCO3 30 mmol/L (22-26); VBG pCO2 47 mmHg; VBG pO2 44 mmHg
[2021-06-29 14:45] LABS: Hematocrit 24.9 % (42.0-52.0); Hemoglobin 7.6 g/dl (14.0-18.0); Mean Corpuscular HGB Conc 30.5 g/dl (31.0-36.0); Mean Corpuscular Hemoglobin 29.7 pg (27.0-33.0); Mean Corpuscular Volume 97.3 fL (80.0-98.0); Mean Platelet Volume 11.6 fL (9.4-12.4); NRBC Pct Auto 0.2 /100WBC (0.0-0.2); Platelet Count 301 X10*3/uL (160-400); Red Blood Count 2.56 X10*6/uL (4.60-5.80); White Blood Count 18.7 X10*3/uL (4.8-10.8)
[2021-06-29 14:59] LABS: Lactic Acid 1.1 mmol/L (0.5-2.0)
[2021-06-29 15:00] LABS: D Dimer High Sensitivity 2025 NG/ML
[2021-06-29 15:02] LABS: Alanine Aminotransferase 9 U/L (0-40); Albumin Level 2.9 g/dL (3.5-5.0); Alkaline Phosphatase 76 U/L (39-117); Anion Gap 18 (12-20); Aspartate Amino Transferase 22 U/L (5-37); Bilirubin Total 0.7 mg/dL (0.0-1.0); Blood Urea Nitrogen 69 mg/dL (9-16); Calcium 8.4 mg/dL (8.4-10.2); Carbon Dioxide 27 mmol/L (22-29); Chloride 104 mmol/L (96-108); Creatinine Clr Calc Pharmacy 51.5; Estimated Glomerular Filt Rate 41; Glucose Random 259 mg/dL (60-115); Magnesium 2.3 mg/dL (1.6-2.6); Phosphorus 4.4 mg/dL (2.7-4.5); Sodium 145 mmol/L (135-145); Total Protein 5.7 g/dL (6.5-8.0)
[2021-06-29 15:09] LABS: Troponin-I High Sensitivity 724.7 ng/L (<3.5-35.0)
--- NOTE | 2021-06-29 15:14 | P.PCNCC_ITS ---
Procedures Date of Service Date of Service: 06/29/21 Central Line Placement Left SC: Central Line Comments: PROCEDURE:? Insertion left subclavian triple lumen central venous catheter. INDICATION:? Acute respiratory failure; venous access and respiratory and hemodynamic monitoring.. ANESTHESIA:? Local plus propofol infusion. PROCEDURE:? Vascular ultrasound was used to examine the left subclavian area.? A large compressible subclavian vein was noted. The left subclavian area was widely prepped and draped in full sterile fashion.? Local anesthesia was applied to the insertion site.? Under US guidance, the left subclavian vein was cannulated on the 1st pass of the 18 g thin wall needle, w return of dark, non-pulsatile blood.? The wire was threaded without incident.? The 20 cm x 7 [place] triple-lumen CVC was advanced into the vein up to the hub via the Seldinger technique without incident.? There was good blood return x3.? The catheter was sutured x3 and a Biopatch and dry sterile dressing were applied. Postop chest x-ray showed the line in good position with no pneumothorax.? The patient tolerated the procedure well w no complications.
[2021-06-29 15:29] LABS: Procalcitonin 0.15 ng/mL
--- NOTE | 2021-06-29 16:13 | PC.NURSE ---
Pt had increased oxygen needs through morning rounds. Pt titrated from 4L NC to 15 L NRB. Pt repeatedly removed oxygen, pulling at lines, and staff reapplied O2. Pt given 2 new IV acccess sites. 11:50 AM pt had increased work of breath, respiratory distress, mottling of skin. Rapid response called. , ICU opal miner, R, IMC nurse at beside. Pt placed on BiPap an evaluated that pt needs transfer to ICU. Pt transported to ICU with nursing supervisor title, ICU opal miner, RT.
[2021-06-29 16:15] LABS: Glucose, Whole Blood 225 mg/dL (60-115)
[2021-06-29 16:22] LABS: B Type Natriuretic Peptide 2469 pg/mL (<100)
[2021-06-29] MEDS: Heparin Sodium,Porcine 5,000 UNIT/ML VIAL 4000 UNIT IVPUSH (18:14)
[2021-06-29] MEDS: Heparin Sodium,Porcine/1/2NS 25,000 UNIT/250 ML IV.SOLN 10 UNIT IVCONT (18:35)
[2021-06-29 18:43] LABS: Hematocrit 23.7 % (42.0-52.0); Hemoglobin 7.4 g/dl (14.0-18.0); Mean Corpuscular HGB Conc 31.2 g/dl (31.0-36.0); Mean Corpuscular Hemoglobin 30.2 pg (27.0-33.0); Mean Corpuscular Volume 96.7 fL (80.0-98.0); Mean Platelet Volume 11.4 fL (9.4-12.4); NRBC Pct Auto 0.4 /100WBC (0.0-0.2); Platelet Count 282 X10*3/uL (160-400); Red Blood Count 2.45 X10*6/uL (4.60-5.80); White Blood Count 16.3 X10*3/uL (4.8-10.8)
[2021-06-29 18:50] LABS: INTERNATIONAL NORM RATIO 1.3 (0.9-1.1); Prothrombin Time 14.5 SEC (9.9-13.0)
[2021-06-29 20:19] LABS: Venous Blood Gas Refer to POC result
[2021-06-29 20:37] LABS: Glucose, Whole Blood 215 mg/dL (60-115)
[2021-06-29 20:38] LABS: Appearance Urine HAZY; Color Urine YELLOW; Glucose Urine UA NEG (NEG); Leukocyte Esterase Urine NEG (NEG); Nitrite Urine NEG (NEG); PH 5.5 (5.0-8.0); Specific Gravity - Urine 1.025 (1.005-1.025); Urine Blood 3+ (NEG); Urine Ketones NEG (NEG); Urine Protein TRACE MG/DL (NEG-TRACE)
[2021-06-29 20:46] LABS: Bacteria Urine 1+ /LPF; WBC Urine 0 /HPF (0-4)
[2021-06-29] MEDS: propofoL 1,000 MG/100 ML VIAL 17.88 MG IVCONT (20:53)
[2021-06-29] MEDS: Chlorothiazide Sodium 500 MG VIAL IVPUSH (22:28)
[2021-06-30] VITALS (38 sets, daily range): BP systolic 98–152; BP diastolic 31–57; PULSE 61–156; RESP 11–26; TEMP 34–38.2; O2SAT 92–99; BMI 35.4
[2021-06-30] MEDS: propofoL 1,000 MG/100 ML VIAL 21.46 MG IVCONT ×3 (00:57→19:17)
[2021-06-30 01:30] LABS: PTT Heparin Drip 55.3 SEC (53-77.9)
[2021-06-30 05:40] LABS: VBG Base Excess 4.3 mmol/L; VBG HCO3 27 mmol/L (22-26); VBG pCO2 36 mmHg; VBG pH 7.48 (7.32-7.43); VBG pO2 46 mmHg
[2021-06-30 05:53] LABS: Hematocrit 24.3 % (42.0-52.0); Hemoglobin 7.6 g/dl (14.0-18.0); Mean Corpuscular HGB Conc 31.3 g/dl (31.0-36.0); Mean Corpuscular Hemoglobin 29.3 pg (27.0-33.0); Mean Corpuscular Volume 93.8 fL (80.0-98.0); Mean Platelet Volume 11.5 fL (9.4-12.4); NRBC Pct Auto 0.5 /100WBC (0.0-0.2); Platelet Count 263 X10*3/uL (160-400); Red Blood Count 2.59 X10*6/uL (4.60-5.80); Red Cell Distribution Width 19.1 % (11.0-16.0); White Blood Count 16.1 X10*3/uL (4.8-10.8)
[2021-06-30 05:54] LABS: Venous Blood Gas Refer to POC result
[2021-06-30 06:07] LABS: Lactic Acid 0.9 mmol/L (0.5-2.0)
[2021-06-30 06:10] LABS: Anion Gap 17 (12-20); Blood Urea Nitrogen 77 mg/dL (9-16); Calcium 8.2 mg/dL (8.4-10.2); Carbon Dioxide 27 mmol/L (22-29); Chloride 107 mmol/L (96-108); Creatinine Clr Calc Pharmacy 42.2; Estimated Glomerular Filt Rate 33; Glucose Random 193 mg/dL (60-115); Phosphorus 3.8 mg/dL (2.7-4.5); Potassium 3.3 mmol/L (3.3-5.1); Sodium 148 mmol/L (135-145)
[2021-06-30 06:24] LABS: Troponin-I High Sensitivity 988.4 ng/L (<3.5-35.0)
[2021-06-30 07:19] LABS: PTT Heparin Drip 51.1 SEC (53-77.9)
[2021-06-30 07:27] LABS: Glucose, Whole Blood 193 mg/dL (60-115)
--- NOTE | 2021-06-30 07:30 | CA_ITS ---
Patient (Last, First, Middle): Dyllan Slade E Gender: Male Date of : 1945 Age: 76 Procedure Date: 06/30/2021 Location: ICU Height: 182.88 cm Weight: 118.84 kg BSA: 2.39 m2 Heart Rate: bpm BP: 113 / 43 mmHg Piano Sounding Board Matcher: RAYMOND Referring MD: Napoleon Guillaume MD Edger Machine Setter: Candelario Rodriguez MD Symptoms: r/o AI, r/o aortic vegetation. Study Quality: Good ECG Rhythm: Sinus Conclusions: - 1. Normal LV systolic function with impaired relaxation filling pattern with moderate LVH 2. Thickened non coronary cusp, vegetation cannot be completely ruled out, with mild aortic regurgitation. No significant change compared to prior study 3. borderline RV systolic pressure 4. Trivial pericardial effusion 5. Complete study was not performed Findings Left Ventricle Normal left ventricular size and systolic function. There is moderately increased left ventricular wall thickness. The visually estimated ejection fraction is between 60-65%. Spectral Doppler is indicative of an impaired relaxation filling pattern. E/E prime ratio is between 8 and 15 consistent with indeterminate filling pressures. Right Ventricle Normal right ventricular cavity size and systolic function. Atria Interatrial shunt cannot be excluded. Aortic Valve There is mild calcification of the aortic valve. There is severe thickening of the aortic valve. There is no aortic valve stenosis. There is mild aortic valve regurgitation. The non coronary cusp is very thickened. A vegetation cannot be completely ruled out, however this is unchanged from prior study. Mitral Valve There is mild anterior and posterior mitral leaflet thickening. There is no mitral valve stenosis. Tricuspid Valve There is trace tricuspid valve regurgitation. There is no evidence of pulmonary hypertension. Great Vessels All visible segments of the aorta are normal in size. The pulmonary artery was not well visualized. Venous The inferior vena cava collapses less than 50% with inspiration. Pericardium/Pleural There is a trivial pericardial effusion. Recommendations, Care & Conclusions Consider a CHRIS if clinically appropriate. Measurements 2D Linear Measurements IVSd: 1.42 0.6-0.9/0.6-1.0 cm LVIDd: 4.97 3.9-5.3/4.2-5.9 cm LVIDd Index: 2.08 2.4-3.2/2.2-3.1 cm/m2 LVIDs: 3.06 2.0-3.6 cm LVPWd: 1.43 0.7-1.1 cm LV Mass: 369.67 67-162/88-224 g LV Mass Index: 154.67 43-95/49-115 g/m2 LVOT Diam: 3.00 3.0+(-)1.3 cm Mitral Valve MV Pk E: 0.75 MV PK A: 0.93 MV Decel Time: 207.00 E/A: 0.80 E'Lateral: 6.64 E'Medial: 5.87 E/E' Med: 12.80 E/E' Lat: 11.30 PHT: 61.00 MVA PHT: 3.61 Decel Brantley: 3.63 Aortic Valve AoV Pk Jose Francisco: 2.05 AoV Mn Jose Francisco: 1.42 AoV VTI: 0.41 AoV Pk Grad: 17.00 Aov Mn Grad: 9.00 PA Cont.VTI: 4.89 LVOT LVOT Pk Jose Francisco: 1.55 LVOT Mn Jose Francisco: 0.92 LVOT VTI: 0.28 LVOT Pk Grad: 10.00 LVOT Mn Grad: 4.00 LVOT Diam: 3.00 LVOT Area: 7.07 Diastolic Function MV Pk E: 0.75 MV Pk A: 0.93 E/A: 0.80 E'Medial: 5.87 E/E' Med: 12.80 E' Laterial: 6.64 E/E' Lat: 11.30 Tricuspid Valve TR Pk Jose Francisco: 2.97 TR Pk Grad: 35.00 RA Press: 3.00 RVSP: 38.00 Updated in Other Vendor System with Status of Final Candelario Rodriguez MD electronically signed on 06/30/2021 8:47:26 AM with status of Final
[2021-06-30] MEDS: Insulin Lispro 100 UNIT/ML 3 ML VIAL SUBCUT ×4 (08:48→21:34)
[2021-06-30] MEDS: 0.9 % Sodium Chloride Flush 3 ML SYRINGE IVFLUSH ×2 (08:49→11:49)
[2021-06-30] MEDS: Chlorhexidine Gluc Oral Rinse 15 ML MOUTHWASH BUCCAL ×2 (09:05→20:57)
[2021-06-30] MEDS: Metoprolol Tartrate 100 MG TABLET PO (09:05)
[2021-06-30] MEDS: Finasteride 5 MG TABLET PO (09:05)
[2021-06-30] MEDS: Nitroglycerin 2 % Oint 1 GM Packet 0.5 INCH TRANSDERMA ×3 (09:05→20:57)
[2021-06-30] MEDS: Heparin Sodium,Porcine 5,000 UNIT/ML VIAL 4800 UNIT IVPUSH (09:30)
--- NOTE | 2021-06-30 10:45 | MHC.CLN ---
NUTRITION IF TUBE FEEDING APPROPRIATE, RECOMMEND PROMOTE AT MAX GOAL RATE OF 60 ML PER HOUR. PROVIDES 2007 KCAL WITH SEDATION (24.8 KCALS/KG IBW); 90 G PROTEIN (1.11 G/KG IBW); 1208 ML FREE WATER FROM FORMULA.
--- NOTE | 2021-06-30 11:09 | P.PNCA_ITS ---
Subjective Subjective Date of Service: 06/30/21 Principal diagnosis: CKD. CHF Interval history: Acute respiratory failure developed yesterday. Patient was urgently transferred to ICU and was intubated on put on mechanical ventilation. Bedside echo performed by ICU attending at that time at shown RV systolic pressures up to 60 mmHg with elevated right atrial pressures. He was concerned about aortic regurgitation. With concern about this acute deterioration and possibility of acute aortic regurgitation. Performed have full echocardiogram bedside which shows mild aortic regurgitation with thickened non coronary cusp. However this appearance is not different from his hospital admission echocardiogram. A vegetation cannot be entirely ruled out. Blood cultures have been drawn. However patient responded extremely well to diuretic regimen, intubation and conversion to sinus rhythm. His troponins are still in the 700 range. There is no clear rise or fall. His urine output is reduced this morning. Hemodynamically stable. Maintaining rhythm. Overall clinical scenario is consistent with flash pulmonary edema, could be related to rapid atrial flutter fibrillation in the setting of underlying significant coronary artery disease which has not been completely ruled out in this gentleman. His echo shows persistent normal LV systolic function and echo today actually showed improved RV size and function with upper limits of normal right ventricular systolic pressure. Review of Systems Review of Systems Yes unobtainable due to endotracheal tube Physical Exam Vital Signs: Last Vital Signs Temp 99.3 F 06/30/21 08:00 Pulse 74 06/30/21 11:00 Resp 17 06/30/21 11:00 BP 124/36 L 06/30/21 11:00 Pulse Ox 96 06/30/21 11:00 Verdana 4 Oxygen Flow Verdana 4 15 Verdana 4 06/29/21 Rate Verdana 4 10:00 Verdana 4 Verdana 4 BMI result Verdana 4 Body Mass Index Verdana 4 35.4 Verdana 4 Verdana 4 Const General: cooperative, comfortable and other (Arousable) Nutritional Appearance: obese Neck Neck: Yes trachea midline and Yes supple Resp Effort & Inspection: normal respiratory effort Auscultation: diminished lung sounds Cardio Jugular venous distension: no JVD Rate: regular rate Rhythm: regular rhythm Heart sounds: S1 normal heart sound present, S2 normal heart sound present, no click, no gallops and no murmurs GI Inspection: Yes obesity Auscultation: normal bowel sounds Skin General skin exam: ecchymosis Extrem General: No clubbing, No cyanosis and Yes edema Objective Labs and Meds Result diagrams: 06/30/21 05:24 06/30/21 05:25 Lab results: Laboratory Results - last 24 hr 06/29/21 06/29/21 06/29/21 07:13 11:24 14:32 WBC RBC Hgb Hct MCV MCH MCHC RDW Plt Count MPV Absolute Nucleated RBC Nucleated RBC % (auto) PT INR PTT (Heparin Protocol) D-Dimer High Sensitivty VBG pH 7.40 VBG pCO2 47 VBG pO2 44 VBG HCO3 30 H VBG O2 Saturation 76.0 VBG Base Excess 4.8 Sodium Potassium Chloride Carbon Dioxide Anion Gap BUN Creatinine Estim Creat Clear Calc Estimated GFR POC Glucose 222 H Random Glucose Lactic Acid Calcium Phosphorus Magnesium Iron 40 L TIBC 166 L % Saturation 24 Unsat Iron Binding 126 Ferritin 1837 H Total Bilirubin AST ALT Alkaline Phosphatase Troponin I High Sens B-Natriuretic Peptide Total Protein Albumin Procalcitonin Urine Color Urine Appearance Urine pH Ur Specific [place] Urine Protein Urine Glucose (UA) Urine Ketones Urine Blood Urine Nitrite Ur Leukocyte Esterase Urine RBC Urine WBC Ur Squamous Epith Cells Urine Bacteria Hyaline Casts Blood Type Antibody Screen Crossmatch 06/29/21 06/29/21 06/29/21 14:35 14:36 14:36 WBC 18.7 H RBC 2.56 L Hgb 7.6 L Hct 24.9 L MCV 97.3 MCH 29.7 MCHC 30.5 L RDW 18.0 H Plt Count 301 MPV 11.6 Absolute Nucleated RBC 0.040 H Nucleated RBC % (auto) 0.2 PT INR PTT (Heparin Protocol) D-Dimer High Sensitivty 2024 VBG pH VBG pCO2 VBG pO2 VBG HCO3 VBG O2 Saturation VBG Base Excess Sodium Potassium Chloride Carbon Dioxide Anion Gap BUN Creatinine Estim Creat Clear Calc Estimated GFR POC Glucose Random Glucose Lactic Acid Calcium Phosphorus Magnesium Iron TIBC % Saturation Unsat Iron Binding Ferritin Total Bilirubin AST ALT Alkaline Phosphatase Troponin I High Sens 724.7 H* B-Natriuretic Peptide 2469 H Total Protein Albumin Procalcitonin Urine Color Urine Appearance Urine pH Ur Specific [place] Urine Protein Urine Glucose (UA) Urine Ketones Urine Blood Urine Nitrite Ur Leukocyte Esterase Urine RBC Urine WBC Ur Squamous Epith Cells Urine Bacteria Hyaline Casts Blood Type Antibody Screen Crossmatch 06/29/21 06/29/21 06/29/21 14:36 14:36 14:36 WBC RBC Hgb Hct MCV MCH MCHC RDW Plt Count MPV Absolute Nucleated RBC Nucleated RBC % (auto) PT INR PTT (Heparin Protocol) D-Dimer High Sensitivty VBG pH VBG pCO2 VBG pO2 VBG HCO3 VBG O2 Saturation VBG Base Excess Sodium 145 Potassium 4.0 Chloride 104 Carbon Dioxide 27 Anion Gap 18 BUN 69 H Creatinine 1.65 H Estim Creat Clear Calc 51.5 Estimated GFR 41 POC Glucose Random Glucose 259 H D Lactic Acid 1.1 Calcium 8.4 Phosphorus 4.4 Magnesium 2.3 Iron TIBC % Saturation Unsat Iron Binding Ferritin Total Bilirubin 0.7 AST 22 D ALT 9 Alkaline Phosphatase 76 Troponin I High Sens B-Natriuretic Peptide Total Protein 5.7 L Albumin 2.9 L Procalcitonin 0.15 Urine Color Urine Appearance Urine pH Ur Specific [place] Urine Protein Urine Glucose (UA) Urine Ketones Urine Blood Urine Nitrite Ur Leukocyte Esterase Urine RBC Urine WBC Ur Squamous Epith Cells Urine Bacteria Hyaline Casts Blood Type Antibody Screen Crossmatch 06/29/21 06/29/21 06/29/21 16:08 18:32 18:32 WBC 16.3 H RBC 2.45 L Hgb 7.4 L Hct 23.7 L MCV 96.7 MCH 30.2 MCHC 31.2 RDW 18.0 H Plt Count 282 MPV 11.4 Absolute Nucleated RBC 0.070 H Nucleated RBC % (auto) 0.4 H PT 14.5 H INR 1.3 H PTT (Heparin Protocol) 26.0 L D-Dimer High Sensitivty VBG pH VBG pCO2 VBG pO2 VBG HCO3 VBG O2 Saturation VBG Base Excess Sodium Potassium Chloride Carbon Dioxide Anion Gap BUN Creatinine Estim Creat Clear Calc Estimated GFR POC Glucose 225 H Random Glucose Lactic Acid Calcium Phosphorus Magnesium Iron TIBC % Saturation Unsat Iron Binding Ferritin Total Bilirubin AST ALT Alkaline Phosphatase Troponin I High Sens B-Natriuretic Peptide Total Protein Albumin Procalcitonin Urine Color Urine Appearance Urine pH Ur Specific [place] Urine Protein Urine Glucose (UA) Urine Ketones Urine Blood Urine Nitrite Ur Leukocyte Esterase Urine RBC Urine WBC Ur Squamous Epith Cells Urine Bacteria Hyaline Casts Blood Type Antibody Screen Crossmatch 06/29/21 06/29/21 06/29/21 19:08 20:31 20:34 WBC RBC Hgb Hct MCV MCH MCHC RDW Plt Count MPV Absolute Nucleated RBC Nucleated RBC % (auto) PT INR PTT (Heparin Protocol) D-Dimer High Sensitivty VBG pH VBG pCO2 VBG pO2 VBG HCO3 VBG O2 Saturation VBG Base Excess Sodium Potassium Chloride Carbon Dioxide Anion Gap BUN Creatinine Estim Creat Clear Calc Estimated GFR POC Glucose 215 H Random Glucose Lactic Acid Calcium Phosphorus Magnesium Iron TIBC % Saturation Unsat Iron Binding Ferritin Total Bilirubin AST ALT Alkaline Phosphatase Troponin I High Sens B-Natriuretic Peptide Total Protein Albumin Procalcitonin Urine Color YELLOW Urine Appearance HAZY Urine pH 5.5 Ur Specific [place] 1.025 Urine Protein TRACE Urine Glucose (UA) NEG Urine Ketones NEG Urine Blood 3+ H Urine Nitrite NEG Ur Leukocyte Esterase NEG Urine RBC 15-29 H Urine WBC 0 Ur Squamous Epith Cells NONE Urine Bacteria 1+ Hyaline Casts 1-4 Blood Type O Positive Antibody Screen NEGATIVE Crossmatch See Detail 06/30/21 06/30/21 06/30/21 01:13 05:24 05:24 WBC 16.1 H RBC 2.59 L Hgb 7.6 L Hct 24.3 L MCV 93.8 MCH 29.3 MCHC 31.3 RDW 19.1 H Plt Count 263 MPV 11.5 Absolute Nucleated RBC 0.080 H Nucleated RBC % (auto) 0.5 H PT INR PTT (Heparin Protocol) 55.3 D D-Dimer High Sensitivty VBG pH VBG pCO2 VBG pO2 VBG HCO3 VBG O2 Saturation VBG Base Excess Sodium Potassium Chloride Carbon Dioxide Anion Gap BUN Creatinine Estim Creat Clear Calc Estimated GFR POC Glucose Random Glucose Lactic Acid Calcium Phosphorus Magnesium Iron TIBC % Saturation Unsat Iron Binding Ferritin Total Bilirubin AST ALT Alkaline Phosphatase Troponin I High Sens 988.4 H* B-Natriuretic Peptide Total Protein Albumin Procalcitonin Urine Color Urine Appearance Urine pH Ur Specific [place] Urine Protein Urine Glucose (UA) Urine Ketones Urine Blood Urine Nitrite Ur Leukocyte Esterase Urine RBC Urine WBC Ur Squamous Epith Cells Urine Bacteria Hyaline Casts Blood Type Antibody Screen Crossmatch 06/30/21 06/30/21 06/30/21 05:25 05:25 05:34 WBC RBC Hgb Hct MCV MCH MCHC RDW Plt Count MPV Absolute Nucleated RBC Nucleated RBC % (auto) PT INR PTT (Heparin Protocol) D-Dimer High Sensitivty VBG pH 7.48 H VBG pCO2 36 VBG pO2 46 VBG HCO3 27 H VBG O2 Saturation 82.0 VBG Base Excess 4.3 Sodium 148 H Potassium 3.3 Chloride 107 Carbon Dioxide 27 Anion Gap 17 BUN 77 H Creatinine 2.01 H Estim Creat Clear Calc 42.2 Estimated GFR 33 POC Glucose Random Glucose 193 H Lactic Acid 0.9 Calcium 8.2 L Phosphorus 3.8 Magnesium Iron TIBC % Saturation Unsat Iron Binding Ferritin Total Bilirubin AST ALT Alkaline Phosphatase Troponin I High Sens B-Natriuretic Peptide Total Protein Albumin Procalcitonin Urine Color Urine Appearance Urine pH Ur Specific [place] Urine Protein Urine Glucose (UA) Urine Ketones Urine Blood Urine Nitrite Ur Leukocyte Esterase Urine RBC Urine WBC Ur Squamous Epith Cells Urine Bacteria Hyaline Casts Blood Type Antibody Screen Crossmatch 06/30/21 06/30/21 07:00 07:21 WBC RBC Hgb Hct MCV MCH MCHC RDW Plt Count MPV Absolute Nucleated RBC Nucleated RBC % (auto) PT INR PTT (Heparin Protocol) 51.1 L D-Dimer High Sensitivty VBG pH VBG pCO2 VBG pO2 VBG HCO3 VBG O2 Saturation VBG Base Excess Sodium Potassium Chloride Carbon Dioxide Anion Gap BUN Creatinine Estim Creat Clear Calc Estimated GFR POC Glucose 193 H Random Glucose Lactic Acid Calcium Phosphorus Magnesium Iron TIBC % Saturation Unsat Iron Binding Ferritin Total Bilirubin AST ALT Alkaline Phosphatase Troponin I High Sens B-Natriuretic Peptide Total Protein Albumin Procalcitonin Urine Color Urine Appearance Urine pH Ur Specific [place] Urine Protein Urine Glucose (UA) Urine Ketones Urine Blood Urine Nitrite Ur Leukocyte Esterase Urine RBC Urine WBC Ur Squamous Epith Cells Urine Bacteria Hyaline Casts Blood Type Antibody Screen Crossmatch Imaging Radiologist's impression: Impressions Chest X-Ray 06/29/21 14:08 IMPRESSION: Endotracheal tube tip 2.3 cm above the selene. Left subclavian line tip projects over SVC. Nasogastric tube projects over the proximal stomach. The tip is not seen. No pneumothorax. Probable CHF. Differential would include new bilateral perihilar pneumonia. Progress Note: A&P Assessment and plan (1) Acute respiratory failure: Status: Acute Assessment and Plan: Acute respiratory failure in this elderly gentleman which precipitated very quickly yesterday, retrospectively appears to be due to rapid atrial fibrillation flutter causing ischemic heart failure. There is high likelihood of underlying significant coronary artery disease. His troponins are mildly elevated and there is no clear rise and fall consistent with acute myocardial infarction. However elevated troponins could be due to subendocardial strain and/or underlying significant obstructive coronary disease and myocardial damage due to rapid heart rate. He has responded very well to diuretic regimen and nitrates. Also responded well to conversion to normal rhythm. At this point time will continue pursue aggressive rhythm control approach and start him on oral amiodarone loading with 400 mg b.i.d.. Clinically seems to be now much improved fluid status. May switch from Lasix drip to p.o. Bumex. His urine output is reduced which is not unusual in patient to go into flash pulmonary edema due to acute ischemia. May not require as much diuretics. Continue blood pressure control. Continue nitrates as anti ischemic therapy and has preload reduction. Once his clinical status has improved I think he will benefit with ischemic workup either by cardiac catheterization. Continue to monitor renal function closely. Consider transfusion of packed RBC to maintain hematocrit over 30. Follow with IV Lasix bolus if you transfuse him. There was concern for acute endocarditis/acute aortic regurgitation. By echocardiogram today does not appear to be the case. Blood cultures have been drawn. If he has positive blood cultures may require transfer to [facility] for CHRIS and further evaluation of his aortic valve. Will follow with you (2) Paroxysmal A-fib: Status: Acute Assessment and Plan: . Patient has been having intermittent episodes of atrial fibrillation and converting. Converted yesterday and since then his clinical status seems to have improved significantly. Continue maintain rhythm. Started on oral anticoagulant therapy. Follow hematocrit closely. Fall Risk Details Current Medications: Current Medications Amiodarone HCl (Amiodarone Hcl 200 Mg Tablet) 400 mg PO BID [facility] Chlorhexidine Gluconate (Chlorhexidine Gluc Oral Rinse 15 Ml Mouthwash) 15 ml BUCCAL BID [facility] Last Admin: 06/30/21 09:05 Dose: 15 ml Documented by: Fentanyl (Fentanyl Citrate/Pf 100 Mcg/2 Ml Vial) 50 mcg IVPUSH Q5M PRN; Protocol PRN Reason: WOB Fentanyl (Fentanyl Citrate/Pf 100 Mcg/2 Ml Vial) 100 mcg IVPUSH Q5M PRN; Protocol PRN Reason: SEVER WOB Finasteride (Finasteride 5 Mg Tablet) 5 mg PO DAILY [facility] Last Admin: 06/30/21 09:05 Dose: 5 mg Documented by: Heparin Sodium (Porcine) (Heparin Sodium,Porcine 5,000 Unit/Ml Vial) 4,800 unit 40 unit/kg (4800 unit) IVPUSH PROTOCOL BOLUS PRN; Protocol PRN Reason: 40 unit/kg - Heparin Protocol Heparin Sodium (Porcine) (Heparin Sodium,Porcine 5,000 Unit/Ml Vial) 9,500 unit 80 unit/kg (9500 unit) IVPUSH PROTOCOL BOLUS PRN; Protocol PRN Reason: 80 unit/kg - Heparin Protocol Cefazolin Sodium 1 gm/ Sodium (Chloride) 50 mls @ 100 mls/hr IV Q12H [facility] Last Infusion: 06/30/21 06:34 Dose: Infused Documented by: Furosemide 200 mg/ Sodium (Chloride) 100 mls @ 5 mls/hr IVCONT .Q20H [facility] Last Admin: 06/29/21 22:26 Dose: 10 mg/hr, 5 mls/hr Documented by: Propofol (Diprivan) 1,000 mg in 100 mls @ 0 mls/hr IVCONT .Q0M [facility]; Protocol Last Titration: 06/30/21 09:17 Dose: Infused Documented by: Norepinephrine Bitartrate (Levophed) 8 mg in 250 mls @ 0 mls/hr IVCONT .Q0M [facility]; Protocol Last Admin: 06/29/21 12:45 Dose: 0.05 mcg/kg/min, 11.18 mls/hr Documented by: Heparin Sodium/Sodium Chloride () 25,000 unit in 250 mls @ 0 mls/hr IVCONT .Q0M [facility]; Protocol Last Admin: 06/29/21 18:35 Dose: 8.39 units/kg/hr, 10 mls/hr Documented by: Insulin Human Lispro (Insulin Lispro 100 Unit/Ml 3 Ml Vial) 0 unit SUBCUT QIDACHS [facility]; Protocol Last Admin: 06/30/21 08:48 Dose: 2 unit Documented by: Metoprolol Tartrate (Metoprolol Tartrate 100 Mg Tablet) 100 mg PO BID [facility]; Protocol Last Admin: 06/30/21 09:05 Dose: 100 mg Documented by: Nitroglycerin (Nitroglycerin 2 % Oint 1 Gm Packet) 0.5 inch TRANSDERMA RQ6H WHILE AWAKE [facility] Last Admin: 06/30/21 09:05 Dose: 0.5 inch Documented by: Omeprazole (Omeprazole 20 Mg/10 Ml Susp.Recon) 20 mg PO DAILY@0630 [facility] Sodium Chloride (0.9 % Sodium Chloride Flush 3 Ml Syringe) 3 ml IVFLUSH QSHIFT [facility] Last Admin: 06/30/21 08:49 Dose: 3 ml Documented by: Time Spent With Patient Time: Total time spent is greater than 50% in coordination of care (as documented) at patient's floor/unit and/or counseling patient: Time with patient: 25 - 35 minutes Progress Note: Quality Stroke Does the patient have a stroke diagnosis?: No Procedures Date of Service Date of Service: 06/30/21
[2021-06-30 11:26] LABS: Glucose, Whole Blood 206 mg/dL (60-115)
--- NOTE | 2021-06-30 11:48 | P.PNCC_ITS ---
Subjective Subjective Date of Service: 06/30/21 Interval History: Mr. Slade was transferred emergently to the ICU yesterday with impending respiratory arrest, probably from CHF. The patient is a 76 yo M with a past medical history of obesity, hypertension, hyperlipidemia, diabetes, BPH, and arthritis. The pt presented to the hospital on Jun 08 with a generalized weakness, shortness of breath, cough but no sputum production.? Was vaccinated including a booster dose. In the ED, the patient was in new Afib w RVR, Sat 94% on room air (baseline 98% on room air); bilateral rales and wheezing.? COVID-19 positive; CXR showed nonspecific increased bibasilar markings with blunting of both angles.? WBC 19, DDimer 3200, BUN/creat 91/2.7 (baseline about 20/1.1).? Trop 46, BNP 300 (no prev trop level).? CXR had questionable small basilar infiltrates. Tx with diltiazem, metoprolol and admitted to Medicine.? Put on full dose Lovenox for the Afib.? Blood cx came back positive for MSSA.? Started vanco.? Renal indices not signif improved with initial tx.? Perfusion scan showed low probability.? Did not require supplemental oxygen. On Jun 10 had a black BM and dropped his blood pressure.? Hemoglobin down to 10.? Was volume resuscitated and given blood later that night.? Later on blood pressure dropped further, and hemoglobin dropped to the 7 range.? He was transferred to the ICU and given more blood and protamine.? He was taken to the OR by Dr. Mae on June 11 for EGD under GETA.? Found multiple duodenal ulcers, w active bleeding from a visible vessel in a 15x20 mm ulcer at the junction between bulb and second duodenum.? Bleeding controlled with epinephrine and gold probe cautery. Was brought back to the ICU still intubated, in hemorrhagic shock.? HB down to 6.7.? Transfused further and tx w pressors.? Lactate normalized.? Creatinine bumped slightly.? Took days to stabilize and then for his mental status to improve.? He was diuresed and then extubated on Jun 19, tx to [facility] on Jun 20. Subsequent course complicated by atrial fibrillation with RVR.? He required supplemental oxygen, probably secondary to fluid overload.? His chest x-rays never showed anything that looked like COVID lung (and he never had a chest CT), and he was never given any tx for COVID (eg. steroids).? Was treated for pulmonary edema 2? fluid overload from his vol resuscitation.? Significant difficulty managing his RVR, and his ROBIN.? MSSA bacteremia tx w Nafcillin, then changed to cefazolin.? Plaza catheter placed for long-term antibiotics, but the patient pulled that out Jun 29 pm. About noon time yesterday the patient was noted to be in respiratory distress, with shallow breathing.? Sat dropped down to 70% on a non-rebreather face mask.? On my arrival to the 4th floor, the patient was obtunded, with barely a grimace to pain.? Spontaneous respirations were very shallow.? The BiPAP was being put on.? The patient was also noted to be mottled in the lower extremities.? After the BiPAP was put on with 100% oxygen, the sat was low 90s with a heart rate 60?s, BP 135/59.? We were about to intubate the patient up on the floor, but with his respiratory pattern stabilized on the BiPAP, with adequate excursion and tidal volume, we transferred him down to ICU on BiPAP. In the ICU, he was opening his eyes, and moving his arms, but was not responsive.? Therefore we went ahead and intubated him.? Echo following that: ECHOCARDIOGRAM for hemodynamic monitoring: Image quality:? Good.? Findings: 1. The patient was in SR. 2. Mild LVH. 3. LV cavity size may be dilated, with slight global hypocontractility, EF 45- 50%.? No RWMAs. 4. RV size mildly dilated. 4. Atria not adequately assessed. 5. AoV is trileaflet with 3+ AI 6. MV morphologically normal with 1-2+ MR by color garett. 7. TV morphologically normal.? Trace TR by color flow.? CWD signal measured 3.5 m/sec (gradient 49mm). 8. IVC 2.6cm w minimal insp collapse.? Estimated CVP 15cm.? RVSP estimate 64mm. Following that, a CVL was placed (see separate procedure).? Labs drawn at 14:36 as below.? Notably, white count is stable at 18, hemoglobin is down to 7.6, D- dimer is down to 2000, BUN/creatinine are 69/1.6, lactic acid 1.1, troponin down to 720, BNP down slightly to 2400, PCT 0.1.? Venous blood gas shows 7.40/47/+4.? Chest x-ray shows bilateral perihilar airspace disease and small bilateral pleural effusions. These findings are new or increased compared to previous exam of Jun 26. Overnight the patient did well, stayed in SR, good BP.? FiO2 down to 30%.? The mottling had resolved fairly soon after the patient was intubated. ?We transfuse him 1 unit of blood overnight because of a hemoglobin of 7+ ACS. We turned the propfol off this morning and he was breathing very easy on pressure support ventilation, with respiratory rate of 12 to 14, and a minute volume of about 8 L. ?We were about to extubate him at about 11am when he went back into rapid Afib at about 170-180/min.? We kept him intubated.? Gave him 150mg ?boluses of amiodarone x 2, then started him on esmolol and amiodarone drips.? He is afebrile. ?Heart rate down to about 120, afib. ?Blood pressure 142/57 on Levophed 0.05 mics. ?Sat 97% on AC vent 30%/+8.? No JVD.? Chest is CTA.? Abd benign.? 1-2+ anasarca. U/O averaging about 30+ cc/hr on Lasix drip. LABORATORY DATA:? Below.? Notably, Hb is still only 7.6 after one unit RBC tx overnight.? BUN/creatinine up to 77/2.0.? K+ 3.3. ECHOCARDIOGRAM by the tech this morning:? Mod LVH, Normal LV systolic function with impaired relaxation.? Thickened non coronary cusp, vegetation cannot be completely ruled out.? Mild AI. IMPRESSION: 1. Acute resp failure, with near respiratory arrest:? Can?t be certain what happened about noon yesterday on IMC.? Judging by the lactate and the echo, there was no circulatory or infectious catastrophe.? The CXR, IMO, shows significant CHF.? (It could also be severe COVID, but his prior course and his current A-a gradient on the ventilator are inconsistent with severe COVID).? So most likely yesterday?s event was hypoxemia with ventilatory failure 2? CHF.? The CXR is c/w severe CHF, but why the event occurred seemingly suddenly is unclear.? (I also don?t think the CXR is aspiration or bacterial pneumonia, be cause those are inconsistent with his current hemodynamics and A-a gradient, and current lack of toxicity. 2. 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 ?No surprise given his obesity and probable CYNDI, given his head/neck habitus.? I?m continuing the Lasix drip.? Adding Diuril.? Discussed w Dr. Kat. 3. PAfib.? In and out of afib.? We?ll replete the potassium.? Started on Amiodarone and esmolol. ?We?ll have to hold the heparin bec of the drop in Hb, in view of his prior GI bleed.? Mult d/w ana cristina Francisco visits to the bedside. 4. ACS.? Trop?s running high throughout this hospitalization, and 7-800?s since last night.? Up to 980 this morning, albeit with worse renal indices.? EKG notable for lateral Tw inversion, with maybe 1mm ST depr in leads V5-6.? No signif change from the last few tracings back to 06/27.? Echo shows no RWMAs.? D/W Dr. Rodriguez, he thinks it?s 2? CHF and recommended heparinization. ?Have to hold the heparin for now.? Ultimately will need cath. 5. New significant AI.? Shun given his bacteremia, and the poss of the AV vegetation, he needs a CHRIS.? Discussed with Dr. Rodriguez.? Plan next week.? We redrew blood cultures yesterday.? If those come back positive, transfer to [facility]. 6. Acute on CKD.? The renal ratio suggests RHF/cardiorenal syndrome.? We?ll diurese him and see what happens with his renal indices.? Have him on Lasix drip.? Add Diuril. 7. s/p GI bleed:? Was stable last two weeks.? Started heparin yesterday, dropped Hb 1 gram overnight.? On bid PPI.? Check stool. 8. Anemia.? Since he guzman ACS, I?ll give him another unit RBCs now. 9. ID.? MSSA bacteremia.? ? if he has a vegetation.? Plan CHRIS next week.? Repeat BCs pending. ?Continuing cefazolin.? Will increase dose to 1G q8hr. 10. COVID.? When he was admitted, his room air SpO2 was 94%, vs baseline 98%.? But his oxygenation deficit could have been secondary to heart failure secondary to the AFib.? His chest x-ray was not really consistent with COVID.? So it is not at all clear to me that he can be said to have or have had COVID pneumonia. ?Even if he does, it hasn?t been clinically relevant. 11. DM.? On SS Lispro. 12. Stage II pressure ulcer on coccyx/bilat buttock.? Nurses and wound nurse following. 13. No evidence of sepsis.? Hypotension in ICU 2? to meds. Spoke with his by telephone this morning and updated her on his condition, treatment, and prognosis. Critical Care Time (minutes): 110 Physical Exam Verdana 4l Vital Signs: Verdana 4d Verdana 4d Vital Signs: Verdana 4d Verdana 4Bd Last Vital Signs Verdana 4d Product Craftsman New 4d Product Craftsman New 4d Temp 99.3 F 06/30/21 08:00 Product Craftsman New 4d Pulse 74 06/30/21 11:00 Product Craftsman New 4d Resp 17 06/30/21 11:00 BP 124/36 L 06/30/21 11:00 Pulse Ox 96 06/30/21 11:00 Oxygen Flow Rate 15 06/29/21 10:00 BMI result Body Mass Index 35.4 Objective Data Labs CBC & Chem 7: 06/30/21 05:24 06/30/21 05:25 Labs: Laboratory Results - last 24 hr 06/29/21 06/29/21 06/29/21 07:13 14:32 14:35 WBC RBC Hgb Hct MCV MCH MCHC RDW Plt Count MPV Absolute Nucleated RBC Nucleated RBC % (auto) PT INR PTT (Heparin Protocol) D-Dimer High Sensitivty VBG pH 7.40 VBG pCO2 47 VBG pO2 44 VBG HCO3 30 H VBG O2 Saturation 76.0 VBG Base Excess 4.8 Sodium Potassium Chloride Carbon Dioxide Anion Gap BUN Creatinine Estim Creat Clear Calc Estimated GFR POC Glucose Random Glucose Lactic Acid Calcium Phosphorus Magnesium Ferritin 1837 H Total Bilirubin AST ALT Alkaline Phosphatase Troponin I High Sens 724.7 H* B-Natriuretic Peptide 2469 H Total Protein Albumin Procalcitonin Urine Color Urine Appearance Urine pH Ur Specific [place] Urine Protein Urine Glucose (UA) Urine Ketones Urine Blood Urine Nitrite Ur Leukocyte Esterase Urine RBC Urine WBC Ur Squamous Epith Cells Urine Bacteria Hyaline Casts Blood Type Antibody Screen Crossmatch 06/29/21 06/29/21 06/29/21 14:36 14:36 14:36 WBC 18.7 H RBC 2.56 L Hgb 7.6 L Hct 24.9 L MCV 97.3 MCH 29.7 MCHC 30.5 L RDW 18.0 H Plt Count 301 MPV 11.6 Absolute Nucleated RBC 0.040 H Nucleated RBC % (auto) 0.2 PT INR PTT (Heparin Protocol) D-Dimer High Sensitivty 2024 VBG pH VBG pCO2 VBG pO2 VBG HCO3 VBG O2 Saturation VBG Base Excess Sodium 145 Potassium 4.0 Chloride 104 Carbon Dioxide 27 Anion Gap 18 BUN 69 H Creatinine 1.65 H Estim Creat Clear Calc 51.5 Estimated GFR 41 POC Glucose Random Glucose 259 H D Lactic Acid Calcium 8.4 Phosphorus 4.4 Magnesium 2.3 Ferritin Total Bilirubin 0.7 AST 22 D ALT 9 Alkaline Phosphatase 76 Troponin I High Sens B-Natriuretic Peptide Total Protein 5.7 L Albumin 2.9 L Procalcitonin Urine Color Urine Appearance Urine pH Ur Specific [place] Urine Protein Urine Glucose (UA) Urine Ketones Urine Blood Urine Nitrite Ur Leukocyte Esterase Urine RBC Urine WBC Ur Squamous Epith Cells Urine Bacteria Hyaline Casts Blood Type Antibody Screen Crossmatch 06/29/21 06/29/21 06/29/21 14:36 14:36 16:08 WBC RBC Hgb Hct MCV MCH MCHC RDW Plt Count MPV Absolute Nucleated RBC Nucleated RBC % (auto) PT INR PTT (Heparin Protocol) D-Dimer High Sensitivty VBG pH VBG pCO2 VBG pO2 VBG HCO3 VBG O2 Saturation VBG Base Excess Sodium Potassium Chloride Carbon Dioxide Anion Gap BUN Creatinine Estim Creat Clear Calc Estimated GFR POC Glucose 225 H Random Glucose Lactic Acid 1.1 Calcium Phosphorus Magnesium Ferritin Total Bilirubin AST ALT Alkaline Phosphatase Troponin I High Sens B-Natriuretic Peptide Total Protein Albumin Procalcitonin 0.15 Urine Color Urine Appearance Urine pH Ur Specific [place] Urine Protein Urine Glucose (UA) Urine Ketones Urine Blood Urine Nitrite Ur Leukocyte Esterase Urine RBC Urine WBC Ur Squamous Epith Cells Urine Bacteria Hyaline Casts Blood Type Antibody Screen Crossmatch 06/29/21 06/29/21 06/29/21 18:32 18:32 19:08 WBC 16.3 H RBC 2.45 L Hgb 7.4 L Hct 23.7 L MCV 96.7 MCH 30.2 MCHC 31.2 RDW 18.0 H Plt Count 282 MPV 11.4 Absolute Nucleated RBC 0.070 H Nucleated RBC % (auto) 0.4 H PT 14.5 H INR 1.3 H PTT (Heparin Protocol) 26.0 L D-Dimer High Sensitivty VBG pH VBG pCO2 VBG pO2 VBG HCO3 VBG O2 Saturation VBG Base Excess Sodium Potassium Chloride Carbon Dioxide Anion Gap BUN Creatinine Estim Creat Clear Calc Estimated GFR POC Glucose Random Glucose Lactic Acid Calcium Phosphorus Magnesium Ferritin Total Bilirubin AST ALT Alkaline Phosphatase Troponin I High Sens B-Natriuretic Peptide Total Protein Albumin Procalcitonin Urine Color Urine Appearance Urine pH Ur Specific [place] Urine Protein Urine Glucose (UA) Urine Ketones Urine Blood Urine Nitrite Ur Leukocyte Esterase Urine RBC Urine WBC Ur Squamous Epith Cells Urine Bacteria Hyaline Casts Blood Type O Positive Antibody Screen NEGATIVE Crossmatch See Detail 06/29/21 06/29/21 06/30/21 20:31 20:34 01:13 WBC RBC Hgb Hct MCV MCH MCHC RDW Plt Count MPV Absolute Nucleated RBC Nucleated RBC % (auto) PT INR PTT (Heparin Protocol) 55.3 D D-Dimer High Sensitivty VBG pH VBG pCO2 VBG pO2 VBG HCO3 VBG O2 Saturation VBG Base Excess Sodium Potassium Chloride Carbon Dioxide Anion Gap BUN Creatinine Estim Creat Clear Calc Estimated GFR POC Glucose 215 H Random Glucose Lactic Acid Calcium Phosphorus Magnesium Ferritin Total Bilirubin AST ALT Alkaline Phosphatase Troponin I High Sens B-Natriuretic Peptide Total Protein Albumin Procalcitonin Urine Color YELLOW Urine Appearance HAZY Urine pH 5.5 Ur Specific [place] 1.025 Urine Protein TRACE Urine Glucose (UA) NEG Urine Ketones NEG Urine Blood 3+ H Urine Nitrite NEG Ur Leukocyte Esterase NEG Urine RBC 15-29 H Urine WBC 0 Ur Squamous Epith Cells NONE Urine Bacteria 1+ Hyaline Casts 1-4 Blood Type Antibody Screen Crossmatch 06/30/21 06/30/2106/30/22 05:24 05:24 05:25 WBC 16.1 H RBC 2.59 L Hgb 7.6 L Hct 24.3 L MCV 93.8 MCH 29.3 MCHC 31.3 RDW 19.1 H Plt Count 263 MPV 11.5 Absolute Nucleated RBC 0.080 H Nucleated RBC % (auto) 0.5 H PT INR PTT (Heparin Protocol) D-Dimer High Sensitivty VBG pH VBG pCO2 VBG pO2 VBG HCO3 VBG O2 Saturation VBG Base Excess Sodium 148 H Potassium 3.3 Chloride 107 Carbon Dioxide 27 Anion Gap 17 BUN 77 H Creatinine 2.01 H Estim Creat Clear Calc 42.2 Estimated GFR 33 POC Glucose Random Glucose 193 H Lactic Acid Calcium 8.2 L Phosphorus 3.8 Magnesium Ferritin Total Bilirubin AST ALT Alkaline Phosphatase Troponin I High Sens 988.4 H* B-Natriuretic Peptide Total Protein Albumin Procalcitonin Urine Color Urine Appearance Urine pH Ur Specific [place] Urine Protein Urine Glucose (UA) Urine Ketones Urine Blood Urine Nitrite Ur Leukocyte Esterase Urine RBC Urine WBC Ur Squamous Epith Cells Urine Bacteria Hyaline Casts Blood Type Antibody Screen Crossmatch 06/30/21 06/30/21 06/30/21 05:25 05:34 07:00 WBC RBC Hgb Hct MCV MCH MCHC RDW Plt Count MPV Absolute Nucleated RBC Nucleated RBC % (auto) PT INR PTT (Heparin Protocol) 51.1 L D-Dimer High Sensitivty VBG pH 7.48 H VBG pCO2 36 VBG pO2 46 VBG HCO3 27 H VBG O2 Saturation 82.0 VBG Base Excess 4.3 Sodium Potassium Chloride Carbon Dioxide Anion Gap BUN Creatinine Estim Creat Clear Calc Estimated GFR POC Glucose Random Glucose Lactic Acid 0.9 Calcium Phosphorus Magnesium Ferritin Total Bilirubin AST ALT Alkaline Phosphatase Troponin I High Sens B-Natriuretic Peptide Total Protein Albumin Procalcitonin Urine Color Urine Appearance Urine pH Ur Specific [place] Urine Protein Urine Glucose (UA) Urine Ketones Urine Blood Urine Nitrite Ur Leukocyte Esterase Urine RBC Urine WBC Ur Squamous Epith Cells Urine Bacteria Hyaline Casts Blood Type Antibody Screen Crossmatch 06/30/21 06/30/21 07:21 11:18 WBC RBC Hgb Hct MCV MCH MCHC RDW Plt Count MPV Absolute Nucleated RBC Nucleated RBC % (auto) PT INR PTT (Heparin Protocol) D-Dimer High Sensitivty VBG pH VBG pCO2 VBG pO2 VBG HCO3 VBG O2 Saturation VBG Base Excess Sodium Potassium Chloride Carbon Dioxide Anion Gap BUN Creatinine Estim Creat Clear Calc Estimated GFR POC Glucose 193 H 206 H Random Glucose Lactic Acid Calcium Phosphorus Magnesium Ferritin Total Bilirubin AST ALT Alkaline Phosphatase Troponin I High Sens B-Natriuretic Peptide Total Protein Albumin Procalcitonin Urine Color Urine Appearance Urine pH Ur Specific [place] Urine Protein Urine Glucose (UA) Urine Ketones Urine Blood Urine Nitrite Ur Leukocyte Esterase Urine RBC Urine WBC Ur Squamous Epith Cells Urine Bacteria Hyaline Casts Blood Type Antibody Screen Crossmatch Microbiology Microbiology Results: Microbiology 06/19/21 14:54 Blood - Venous Blood Culture - Final No growth after 5 days. 06/19/21 14:55 Blood - Venous Blood Culture - Final No growth after 5 days. 06/09/21 17:15 Blood - Venous Blood Culture - Final Staphylococcus aureus 06/09/21 17:10 Blood - Venous Blood Culture - Final Staphylococcus aureus 06/08/21 23:11 Blood - Venous Blood Culture - Final Staphylococcus aureus 06/08/21 23:11 Blood - Venous Blood Culture - Final Staphylococcus aureus Quality Stroke Does the patient have a stroke diagnosis?: No VTE Prior VTE?: No VTE Risk Level:: Medical - moderate - high VTE Device Contraindication: Treatment Not Indicated VTE Drug Contraindication: Treatment Not Indicated Critical Care Time Critical Care Time (minutes): 120
[2021-06-30] MEDS: Amiodarone HCL 200 MG TABLET 400 MG PO (11:49)
[2021-06-30] MEDS: fentaNYL citrate/PF 100 MCG/2 ML VIAL IVPUSH ×2 (11:50→17:21)
[2021-06-30] MEDS: propofoL 1,000 MG/100 ML VIAL 14.3 MG IVCONT (11:57)
[2021-06-30] MEDS: Amiodarone/Dextrose 150 MG/100 ML PLAST..BAG 600 MG IV ×2 (12:00→12:12)
[2021-06-30] MEDS: Esmolol HCl/NaCl Iso 2,500 MG/250 ML IV.SOLN 17.78 MG IVCONT (12:02)
[2021-06-30] MEDS: Amiodarone HCL 900 MG in 0.9 % Sodium Chloride 500 ML 34.53 MG IVCONT (13:08)
--- NOTE | 2021-06-30 13:50 | P.PNNP_ITS ---
Subjective Subjective Date of Service: 06/30/21 Principal diagnosis: CKD. CHF Interval history: Mr. Slade was transferred emergently to the ICU yesterday with impending respiratory arrest, probably from CHF. The patient is a 76 yo M with a past medical history of obesity, hypertension, hyperlipidemia, diabetes, BPH, and arthritis. The pt presented to the hospital on Jun 08 with a generalized weakness, shortness of breath, cough but no sputum production.? Was vaccinated including a booster dose. In the ED, the patient was in new Afib w RVR, Sat 94% on room air (baseline 98% on room air); bilateral rales and wheezing.? COVID-19 positive; CXR showed nonspecific increased bibasilar markings with blunting of both angles.? WBC 19, DDimer 3200, BUN/creat 91/2.7 (baseline about 20/1.1).? Trop 46, BNP 300 (no prev trop level).? CXR had questionable small basilar infiltrates. Tx with diltiazem, metoprolol and admitted to Medicine.? Put on full dose Loven ox for the Afib.? Blood cx came back positive for MSSA.? Started vanco.? Renal indices not signif improved with initial tx.? Perfusion scan showed low probability.? Did not require supplemental oxygen. On Jun 10 had a black BM and dropped his blood pressure.? Hemoglobin down to 10.? Was volume resuscitated and given blood later that night.? Later on blood pressure dropped further, and hemoglobin dropped to the 7 range.? He was transferred to the ICU and given more blood and protamine.? He was taken to the OR by Dr. Mae on June 11 for EGD under GETA.? Found multiple duodenal ulcers, w active bleeding from a visible vessel in a 15x20 mm ulcer at the junction between bulb and second duodenum.? Bleeding controlled with epinephrine and gold probe cautery. Was brought back to the ICU still intubated, in hemorrhagic shock.? HB down to 6.7.? Transfused further and tx w pressors.? Lactate normalized.? Creatinine bumped slightly.? Took days to stabilize and then for his mental status to improve.? He was diuresed and then extubated on Jun 19, tx to IM on Jun 20. Subsequent course complicated by atrial fibrillation with RVR.? He required supplemental oxygen, probably secondary to fluid overload.? His chest x-rays never showed anything that looked like COVID lung (and he never had a chest CT), and he was never given any tx for COVID (eg. steroids).? Was treated for pulmonary edema 2? fluid overload from his vol resuscitation.? Significant difficulty managing his RVR, and his ROBIN.? MSSA bacteremia tx w Nafcillin, then changed to cefazolin.? Plaza catheter placed for long-term antibiotics, but the patient pulled that out Jun 29 pm. About noon time yesterday the patient was noted to be in respiratory distress, with shallow breathing.? Sat dropped down to 70% on a non-rebreather face mask.? On my arrival to the 4th floor, the patient was obtunded, with barely a grimace to pain.? Spontaneous respirations were very shallow.? The BiPAP was being put on.? The patient was also noted to be mottled in the lower extremities.? After the BiPAP was put on with 100% oxygen, the sat was low 90s with a heart rate 60?s, BP 135/59.? We were about to intubate the patient up on the floor, but with his respiratory pattern stabilized on the BiPAP, with adequate excursion and tidal volume, we transferred him down to ICU on BiPAP. In the ICU, he was opening his eyes, and moving his arms, but was not responsive.? Therefore we went ahead and intubated him.? Echo following that: ECHOCARDIOGRAM for hemodynamic monitoring: Image quality:? Good.? Findings: 1. The patient was in SR. 2. Mild LVH. 3. LV cavity size may be dilated, with slight global hypocontractility, EF 45- 50%.? No RWMAs. 4. RV size mildly dilated. 4. Atria not adequately assessed. 5. AoV is trileaflet with 3+ AI 6. MV morphologically normal with 1-2+ MR by color garett. 7. TV morphologically normal.? Trace TR by color flow.? CWD signal measured 3.5 m/sec (gradient 49mm). 8. IVC 2.6cm w minimal insp collapse.? Estimated CVP 15cm.? RVSP estimate 64mm. Following that, a CVL was placed (see separate procedure).? Labs drawn at 14:36 as below.? Notably, white count is stable at 18, hemoglobin is down to 7.6, D- dimer is down to 2000, BUN/creatinine are 69/1.6, lactic acid 1.1, troponin down to 720, BNP down slightly to 2400, PCT 0.1.? Venous blood gas shows 7.40/47/+4.? Chest x-ray shows bilateral perihilar airspace disease and small bilateral pleural effusions. These findings are new or increased compared to previous exam of Jun 26. Overnight the patient did well, stayed in SR, good BP.? FiO2 down to 30%.? The mottling had resolved fairly soon after the patient was intubated. ?We transfuse him 1 unit of blood overnight because of a hemoglobin of 7+ ACS. We turned the propfol off this morning and he was breathing very easy on pressure support ventilation, with respiratory rate of 12 to 14, and a minute volume of about 8 L. ?We were about to extubate him at about 11am when he went back into rapid Afib at about 170-180/min.? We kept him intubated.? Gave him 150mg ?boluses of amiodarone x 2, then started him on esmolol and amiodarone drips.? He is afebrile. ?Heart rate down to about 120, afib. ?Blood pressure 142/57 on Levophed 0.05 mics. ?Sat 97% on AC vent 30%/+8.? No JVD.? Chest is CTA.? Abd benign.? 1-2+ anasarca. U/O averaging about 30+ cc/hr on Lasix drip. LABORATORY DATA:? Below.? Notably, Hb is still only 7.6 after one unit RBC tx overnight.? BUN/creatinine up to 77/2.0.? K+ 3.3. ECHOCARDIOGRAM by the tech this morning:? Mod LVH, Normal LV systolic function with impaired relaxation.? Thickened non coronary cusp, vegetation cannot be completely ruled out.? Mild AI. IMPRESSION: 1. Acute resp failure, with near respiratory arrest:? Can?t be certain what happened about noon yesterday on IMC.? Judging by the lactate and the echo, there was no circulatory or infectious catastrophe.? The CXR, IMO, shows significant CHF.? (It could also be severe COVID, but his prior course and his current A-a gradient on the ventilator are inconsistent with severe COVID).? So most likely yesterday?s event was hypoxemia with ventilatory failure 2? CHF.? The CXR is c/w severe CHF, but why the event occurred seemingly suddenly is unclear.? (I also don?t think the CXR is aspiration or bacterial pneumonia, because those are inconsistent with his current hemodynamics and A-a gradient, and current lack of toxicity. 2. 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 ?No surprise given his obesity and probable CYNDI, given his head/neck habitus.? I?m continuing the Lasix drip.? Adding Diuril.? Discussed w Dr. Kat. 3. PAfib.? In and out of afib.? We?ll replete the potassium.? Started on Amiodarone and esmolol. ?We?ll have to hold the heparin bec of the drop in Hb, in view of his prior GI bleed.? Mult d/w ana cristina Francisco visits to the bedside. 4. ACS.? Trop?s running high throughout this hospitalization, and 7-800?s since last night.? Up to 980 this morning, albeit with worse renal indices.? EKG notable for lateral Tw inversion, with maybe 1mm ST depr in leads V5-6.? No signif change from the last few tracings back to 06/27.? Echo shows no RWMAs.? D/W Dr. Rodriguez, he thinks it?s 2? CHF and recommended heparinization. ?Have to hold the heparin for now.? Ultimately will need cath. 5. New significant AI.? Shun given his bacteremia, and the poss of the AV vegetation, he needs a CHRIS.? Discussed with Dr. Rodriguez.? Plan next week.? We red rew blood cultures yesterday.? If those come back positive, [place] [facility] 6. Acute on CKD.? The renal ratio suggests RHF/cardiorenal syndrome.? We?ll diurese him and see what happens with his renal indices.? Have him on Lasix drip.? Add Diuril. 7. s/p GI bleed:? Was stable last two weeks.? Started heparin yesterday, dropped Hb 1 gram overnight.? On bid PPI.? Check stool. 8. Anemia.? Since he guzman ACS, I?ll give him another unit RBCs now. 9. ID.? MSSA bacteremia.? ? if he has a vegetation.? Plan CHRIS next week.? Repeat BCs pending. ?Continuing cefazolin.? Will increase dose to 1G q8hr. 10. COVID.? When he was admitted, his room air SpO2 was 94%, vs baseline 98%.? But his oxygenation deficit could have been secondary to heart failure secondary to the AFib.? His chest x-ray was not really consistent with COVID.? So it is not at all clear to me that he can be said to have or have had COVID pneumonia. ?Even if he does, it hasn?t been clinically relevant. 11. DM.? On SS Lispro. 12. Stage II pressure ulcer on coccyx/bilat buttock.? Nurses and wound nurse following. 13. No evidence of sepsis.? Hypotension in ICU 2? to meds. Spoke with his by telephone this morning and updated her on his condition, treatment, and prognosis. Physical Exam Verdana 4l Vital Signs: Verdana 4d Verdana 4d Vital Signs: Verdana 4d Verdana 4Bd Last Vital Signs Verdana 4d Radioactivity Technician New 4d Radioactivity Technician New 4d Temp 100.8 F H 06/30/21 13:38 Radioactivity Technician New 4d Pulse 118 H 06/30/21 13:38 Radioactivity Technician New 4d Resp 14 06/30/21 13:38 BP 98/41 L 06/30/21 13:38 Pulse Ox 96 06/30/21 13:00 Oxygen Flow Rate 15 06/29/21 10:00 BMI result Body Mass Index 35.4 Const: Other: Gen:? Awake alert, in acute respiratory distress, able to talk in full sentences HEENT: sclera anicteric, moist mucus membranes Neck: supple,+ jvd Lungs: Coarse breath sounds, no crackles, tachypnea Heart: irregular, no murmurs Abd: soft, non-tender, obese Ext: trace edema Skin: significant pressure injury both buttocks right greater than left is stage II coccyx. Neuro: alert and oriented x3, no focal findings Psych: appropriate affect General: cooperative, comfortable, no acute distress, alert, awake, ill appearing and other (Arousable) Nutritional Appearance: obese Orientation/consciousness: patient oriented x3 HENMT: Head: Yes normal to inspection Eyes: General: appearance normal, both eyes and all related structures Sclerae: sclerae normal EOM: EOMs intact bilaterally Neck: Other: JVD present Neck: Yes normal visual inspection, Yes no lymphadenopathy, Yes trachea midline, Yes supple and Yes no JVD Resp: Other: On ventilator Effort & Inspection: normal respiratory effort, able to speak in complete sentences, decreased respiratory effort, not labored and no respiratory distress Auscultation: clear to auscultation bilaterally, crackles ( Bibasilar), no rales, no rhonchi, no wheezes and diminished lung sounds Cardio: Other: irregular, AFib Jugular venous distension: no JVD and JVD Palpation: normal PMI Rate: regular rate and tachycardic Rhythm: regular rhythm and abnormal rhythm irregularly irregular Heart sounds: S1 normal heart sound present, S2 normal heart sound present, no click, no gallops, no murmurs and no rubs Peripheral pulses: Peripheral pulses 2+ throughout GI: Other: abdomen is soft and without masses Inspection: Yes normal to inspection and Yes obesity Palpation (GI): Soft to palpation, not firm, nontender, no guarding, not rigid and Other GI palpation findings present ( Nontender) Auscultation: normal bowel sounds Skin: General skin exam: no rashes or lesions noted and ecchymosis Neuro: General: patient oriented x3 and no focal motor deficits Extrem: Other: Pitting edema in lower extremities General: Yes normal to inspection, Yes no clubbing, cyanosis or edema, Yes no pedal edema, No clubbing, No cyanosis, Yes edema and Yes pedal edema ( 1+ bilateral) Psych: Appearance: grossly normal Objective Data Labs CBC & Chem 7: 06/30/21 05:24 06/30/21 05:25 Labs: Laboratory Results - last 24 hr 06/29/21 06/29/21 06/29/21 14:32 14:35 14:36 WBC 18.7 H RBC 2.56 L Hgb 7.6 L Hct 24.9 L MCV 97.3 MCH 29.7 MCHC 30.5 L RDW 18.0 H Plt Count 301 MPV 11.6 Absolute Nucleated RBC 0.040 H Nucleated RBC % (auto) 0.2 PT INR PTT (Heparin Protocol) D-Dimer High Sensitivty VBG pH 7.40 VBG pCO2 47 VBG pO2 44 VBG HCO3 30 H VBG O2 Saturation 76.0 VBG Base Excess 4.8 Sodium Potassium Chloride Carbon Dioxide Anion Gap BUN Creatinine Estim Creat Clear Calc Estimated GFR POC Glucose Random Glucose Lactic Acid Calcium Phosphorus Magnesium Total Bilirubin AST ALT Alkaline Phosphatase Troponin I High Sens 724.7 H* B-Natriuretic Peptide 2469 H Total Protein Albumin Procalcitonin Urine Color Urine Appearance Urine pH Ur Specific [place] Urine Protein Urine Glucose (UA) Urine Ketones Urine Blood Urine Nitrite Ur Leukocyte Esterase Urine RBC Urine WBC Ur Squamous Epith Cells Urine Bacteria Hyaline Casts Blood Type Antibody Screen Crossmatch 06/29/21 06/29/21 06/29/21 14:36 14:36 14:36 WBC RBC Hgb Hct MCV MCH MCHC RDW Plt Count MPV Absolute Nucleated RBC Nucleated RBC % (auto) PT INR PTT (Heparin Protocol) D-Dimer High Sensitivty 2024 VBG pH VBG pCO2 VBG pO2 VBG HCO3 VBG O2 Saturation VBG Base Excess Sodium 145 Potassium 4.0 Chloride 104 Carbon Dioxide 27 Anion Gap 18 BUN 69 H Creatinine 1.65 H Estim Creat Clear Calc 51.5 Estimated GFR 41 POC Glucose Random Glucose 259 H D Lactic Acid 1.1 Calcium 8.4 Phosphorus 4.4 Magnesium 2.3 Total Bilirubin 0.7 AST 22 D ALT 9 Alkaline Phosphatase 76 Troponin I High Sens B-Natriuretic Peptide Total Protein 5.7 L Albumin 2.9 L Procalcitonin Urine Color Urine Appearance Urine pH Ur Specific [place] Urine Protein Urine Glucose (UA) Urine Ketones Urine Blood Urine Nitrite Ur Leukocyte Esterase Urine RBC Urine WBC Ur Squamous Epith Cells Urine Bacteria Hyaline Casts Blood Type Antibody Screen Crossmatch 06/29/21 06/29/21 06/29/21 14:36 16:08 18:32 WBC 16.3 H RBC 2.45 L Hgb 7.4 L Hct 23.7 L MCV 96.7 MCH 30.2 MCHC 31.2 RDW 18.0 H Plt Count 282 MPV 11.4 Absolute Nucleated RBC 0.070 H Nucleated RBC % (auto) 0.4 H PT INR PTT (Heparin Protocol) D-Dimer High Sensitivty VBG pH VBG pCO2 VBG pO2 VBG HCO3 VBG O2 Saturation VBG Base Excess Sodium Potassium Chloride Carbon Dioxide Anion Gap BUN Creatinine Estim Creat Clear Calc Estimated GFR POC Glucose 225 H Random Glucose Lactic Acid Calcium Phosphorus Magnesium Total Bilirubin AST ALT Alkaline Phosphatase Troponin I High Sens B-Natriuretic Peptide Total Protein Albumin Procalcitonin 0.15 Urine Color Urine Appearance Urine pH Ur Specific [place] Urine Protein Urine Glucose (UA) Urine Ketones Urine Blood Urine Nitrite Ur Leukocyte Esterase Urine RBC Urine WBC Ur Squamous Epith Cells Urine Bacteria Hyaline Casts Blood Type Antibody Screen Crossmatch 06/29/21 06/29/21 06/29/21 18:32 19:08 20:31 WBC RBC Hgb Hct MCV MCH MCHC RDW Plt Count MPV Absolute Nucleated RBC Nucleated RBC % (auto) PT 14.5 H INR 1.3 H PTT (Heparin Protocol) 26.0 L D-Dimer High Sensitivty VBG pH VBG pCO2 VBG pO2 VBG HCO3 VBG O2 Saturation VBG Base Excess Sodium Potassium Chloride Carbon Dioxide Anion Gap BUN Creatinine Estim Creat Clear Calc Estimated GFR POC Glucose Random Glucose Lactic Acid Calcium Phosphorus Magnesium Total Bilirubin AST ALT Alkaline Phosphatase Troponin I High Sens B-Natriuretic Peptide Total Protein Albumin Procalcitonin Urine Color YELLOW Urine Appearance HAZY Urine pH 5.5 Ur Specific [place] 1.025 Urine Protein TRACE Urine Glucose (UA) NEG Urine Ketones NEG Urine Blood 3+ H Urine Nitrite NEG Ur Leukocyte Esterase NEG Urine RBC 15-29 H Urine WBC 0 Ur Squamous Epith Cells NONE Urine Bacteria 1+ Hyaline Casts 1-4 Blood Type O Positive Antibody Screen NEGATIVE Crossmatch See Detail 06/29/21 06/30/21 06/30/21 20:34 01:13 05:24 WBC 16.1 H RBC 2.59 L Hgb 7.6 L Hct 24.3 L MCV 93.8 MCH 29.3 MCHC 31.3 RDW 19.1 H Plt Count 263 MPV 11.5 Absolute Nucleated RBC 0.080 H Nucleated RBC % (auto) 0.5 H PT INR PTT (Heparin Protocol) 55.3 D D-Dimer High Sensitivty VBG pH VBG pCO2 VBG pO2 VBG HCO3 VBG O2 Saturation VBG Base Excess Sodium Potassium Chloride Carbon Dioxide Anion Gap BUN Creatinine Estim Creat Clear Calc Estimated GFR POC Glucose 215 H Random Glucose Lactic Acid Calcium Phosphorus Magnesium Total Bilirubin AST ALT Alkaline Phosphatase Troponin I High Sens B-Natriuretic Peptide Total Protein Albumin Procalcitonin Urine Color Urine Appearance Urine pH Ur Specific [place] Urine Protein Urine Glucose (UA) Urine Ketones Urine Blood Urine Nitrite Ur Leukocyte Esterase Urine RBC Urine WBC Ur Squamous Epith Cells Urine Bacteria Hyaline Casts Blood Type Antibody Screen Crossmatch 06/30/21 06/30/21 06/30/21 05:24 05:25 05:25 WBC RBC Hgb Hct MCV MCH MCHC RDW Plt Count MPV Absolute Nucleated RBC Nucleated RBC % (auto) PT INR PTT (Heparin Protocol) D-Dimer High Sensitivty VBG pH VBG pCO2 VBG pO2 VBG HCO3 VBG O2 Saturation VBG Base Excess Sodium 148 H Potassium 3.3 Chloride 107 Carbon Dioxide 27 Anion Gap 17 BUN 77 H Creatinine 2.01 H Estim Creat Clear Calc 42.2 Estimated GFR 33 POC Glucose Random Glucose 193 H Lactic Acid 0.9 Calcium 8.2 L Phosphorus 3.8 Magnesium Total Bilirubin AST ALT Alkaline Phosphatase Troponin I High Sens 988.4 H* B-Natriuretic Peptide Total Protein Albumin Procalcitonin Urine Color Urine Appearance Urine pH Ur Specific [place] Urine Protein Urine Glucose (UA) Urine Ketones Urine Blood Urine Nitrite Ur Leukocyte Esterase Urine RBC Urine WBC Ur Squamous Epith Cells Urine Bacteria Hyaline Casts Blood Type Antibody Screen Crossmatch 06/30/21 06/30/21 06/30/21 05:34 07:00 07:21 WBC RBC Hgb Hct MCV MCH MCHC RDW Plt Count MPV Absolute Nucleated RBC Nucleated RBC % (auto) PT INR PTT (Heparin Protocol) 51.1 L D-Dimer High Sensitivty VBG pH 7.48 H VBG pCO2 36 VBG pO2 46 VBG HCO3 27 H VBG O2 Saturation 82.0 VBG Base Excess 4.3 Sodium Potassium Chloride Carbon Dioxide Anion Gap BUN Creatinine Estim Creat Clear Calc Estimated GFR POC Glucose 193 H Random Glucose Lactic Acid Calcium Phosphorus Magnesium Total Bilirubin AST ALT Alkaline Phosphatase Troponin I High Sens B-Natriuretic Peptide Total Protein Albumin Procalcitonin Urine Color Urine Appearance Urine pH Ur Specific [place] Urine Protein Urine Glucose (UA) Urine Ketones Urine Blood Urine Nitrite Ur Leukocyte Esterase Urine RBC Urine WBC Ur Squamous Epith Cells Urine Bacteria Hyaline Casts Blood Type Antibody Screen Crossmatch 06/30/21 11:18 WBC RBC Hgb Hct MCV MCH MCHC RDW Plt Count MPV Absolute Nucleated RBC Nucleated RBC % (auto) PT INR PTT (Heparin Protocol) D-Dimer High Sensitivty VBG pH VBG pCO2 VBG pO2 VBG HCO3 VBG O2 Saturation VBG Base Excess Sodium Potassium Chloride Carbon Dioxide Anion Gap BUN Creatinine Estim Creat Clear Calc Estimated GFR POC Glucose 206 H Random Glucose Lactic Acid Calcium Phosphorus Magnesium Total Bilirubin AST ALT Alkaline Phosphatase Troponin I High Sens B-Natriuretic Peptide Total Protein Albumin Procalcitonin Urine Color Urine Appearance Urine pH Ur Specific [place] Urine Protein Urine Glucose (UA) Urine Ketones Urine Blood Urine Nitrite Ur Leukocyte Esterase Urine RBC Urine WBC Ur Squamous Epith Cells Urine Bacteria Hyaline Casts Blood Type Antibody Screen Crossmatch Microbiology Microbiology Results: Microbiology 06/19/21 14:54 Blood - Venous Blood Culture - Final No growth after 5 days. 06/19/21 14:55 Blood - Venous Blood Culture - Final No growth after 5 days. 06/09/21 17:15 Blood - Venous Blood Culture - Final Staphylococcus aureus 06/09/21 17:10 Blood - Venous Blood Culture - Final Staphylococcus aureus 06/08/21 23:11 Blood - Venous Blood Culture - Final Staphylococcus aureus 06/08/21 23:11 Blood - Venous Blood Culture - Final Staphylococcus aureus Procedures Date of Service Date of Service: 06/30/21 Assessment & Plan Assessment and plan (1) Acute respiratory failure: Status: Acute Assessment and Plan: Acute respiratory failure in this elderly gentleman which precipitated very quickly yesterday, retrospectively appears to be due to rapid atrial fibrilla tion flutter causing ischemic heart failure. There is high likelihood of underlying significant coronary artery disease. His troponins are mildly elevated and there is no clear rise and fall consistent with acute myocardial infarction. However elevated troponins could be due to subendocardial strain and/or underlying significant obstructive coronary disease and myocardial damage due to rapid heart rate. He has responded very well to diuretic regimen and nitrates. Also responded well to conversion to normal rhythm. At this point time will continue pursue aggressive rhythm control approach and start him on oral amiodarone loading with 400 mg b.i.d.. Clinically seems to be now much improved fluid status. May switch from Lasix drip to p.o. Bumex. His urine output is reduced which is not unusual in patient to go into flash pulmonary edema due to acute ischemia. May not require as much diuretics. Continue blood pressure control. Continue nitrates as anti ischemic therapy and has preload reduction. Once his clinical status has improved I think he will benefit with ischemic workup either by cardiac catheterization. Continue to monitor renal function closely. Consider transfusion of packed RBC to maintain hematocrit over 30. Follow with IV Lasix bolus if you transfuse him. There was concern for acute endocarditis/acute aortic regurgitation. By echocardiogram today does not appear to be the case. Blood cultures have been drawn. If he has positive blood cultures may require transfer to [facility] for CHRIS and further evaluation of his aortic valve. Will follow with you (2) Acute renal failure: Status: Acute Assessment and Plan: underlying CKD ROBIN 2nd to covid and vol depletion high Na replace with IV 1/2 NS 100 cc hr Time Spent With Patient Time: Total time spent is greater than 50% in coordination of care (as documented) at patient's floor/unit and/or counseling patient: Progress Note: Quality Stroke Does the patient have a stroke diagnosis?: No
[2021-06-30] MEDS: Chlorothiazide Sodium 500 MG VIAL IVPUSH (14:05)
[2021-06-30] MEDS: Potassium Chloride/H20 40 MEQ/100 ML PIGGYBACK 100 MEQ IV (14:05)
--- NOTE | 2021-06-30 14:49 | MHC.CM.PN ---
Pt transferred to ICU for eventual intubation: Pt with HF and poor urine output: Cards and Nephro to see: no plans to extubate at this time. Pt will need STR placement following his acute stay: Pt had been referred and accepted to [facility] previously. CM to follow
[2021-06-30] MEDS: Potassium Chloride/H20 20 MEQ/100 ML PIGGYBACK 100 MEQ IV (15:00)
[2021-06-30 16:18] LABS: Glucose, Whole Blood 193 mg/dL (60-115)
[2021-06-30 17:09] LABS: Hematocrit 28.1 % (42.0-52.0); Hemoglobin 9.1 g/dl (14.0-18.0)
[2021-06-30 17:24] LABS: Anion Gap 18 (12-20); Blood Urea Nitrogen 73 mg/dL (9-16); Calcium 8.1 mg/dL (8.4-10.2); Carbon Dioxide 27 mmol/L (22-29); Chloride 107 mmol/L (96-108); Estimated Glomerular Filt Rate 30; Glucose Random 195 mg/dL (60-115); Magnesium 2.2 mg/dL (1.6-2.6); Phosphorus 3.3 mg/dL (2.7-4.5); Potassium 3.9 mmol/L (3.3-5.1); Sodium 148 mmol/L (135-145)
[2021-06-30] MEDS: Furosemide 200 MG in 0.9 % Sodium Chloride 80 ML IVCONT (18:30)
[2021-06-30 21:40] LABS: Glucose, Whole Blood 192 mg/dL (60-115)
[2021-06-30] MEDS: propofoL 1,000 MG/100 ML VIAL 28.61 MG IVCONT (23:06)
[2021-07-01] VITALS (40 sets, daily range): BP systolic 94–157; BP diastolic 26–57; PULSE 58–151; RESP 12–98; TEMP 35–37.2; O2SAT 21–100; BMI 36.0
[2021-07-01] MEDS: propofoL 1,000 MG/100 ML VIAL 28.61 MG IVCONT ×2 (02:51→05:56)
[2021-07-01 05:37] LABS: VBG Base Excess 4.5 mmol/L; VBG HCO3 26 mmol/L (22-26); VBG pCO2 30 mmHg; VBG pH 7.54 (7.32-7.43); VBG pO2 52 mmHg
[2021-07-01 06:02] LABS: MANUAL DIFF FLAG NO
[2021-07-01 06:10] LABS: Basophils Percent Auto 0.2 % (0-2); Eosinophils Absolute Auto 1.3 X10*3/uL (0.0-0.4); Eosinophils Percent Auto 7.3 % (0-4); Hematocrit 29.1 % (42.0-52.0); Hemoglobin 9.3 g/dl (14.0-18.0); Imm Gran Abs Auto 0.68 X10*3/uL (0.00-0.03); Imm Gran Pct Auto 3.8 % (0.0-0.4); Lymphocytes Absolute Auto 0.9 X10*3/uL (1.2-4.9); Lymphocytes Percent Auto 4.9 % (20-40); Mean Corpuscular Hemoglobin 29.7 pg (27.0-33.0); Mean Platelet Volume 11.7 fL (9.4-12.4); Monocytes Absolute Auto 0.9 X10*3/uL (0.1-1.2); Monocytes Percent Auto 4.7 % (2-11); NRBC Pct Auto 0.4 /100WBC (0.0-0.2); Neutrophils Absolute Auto 14.2 x10*3/uL (2.0-8.3); Neutrophils Percent Auto 79.1 % (45-73); Platelet Count 221 X10*3/uL (160-400); Red Blood Count 3.13 X10*6/uL (4.60-5.80); Red Cell Distribution Width 18.7 % (11.0-16.0); White Blood Count 17.9 X10*3/uL (4.8-10.8)
[2021-07-01 06:24] LABS: Alanine Aminotransferase < 6 U/L (0-40); Albumin Level 2.7 g/dL (3.5-5.0); Alkaline Phosphatase 70 U/L (39-117); Anion Gap 20 (12-20); Aspartate Amino Transferase 24 U/L (5-37); Bilirubin Total 0.6 mg/dL (0.0-1.0); Blood Urea Nitrogen 76 mg/dL (9-16); Calcium 8.2 mg/dL (8.4-10.2); Carbon Dioxide 24 mmol/L (22-29); Chloride 108 mmol/L (96-108); Creatinine Clr Calc Pharmacy 38.7; Estimated Glomerular Filt Rate 29; Glucose Random 182 mg/dL (60-115); Magnesium 2.1 mg/dL (1.6-2.6); Phosphorus 3.2 mg/dL (2.7-4.5); Potassium 3.3 mmol/L (3.3-5.1); Sodium 149 mmol/L (135-145); Total Protein 5.4 g/dL (6.5-8.0)
[2021-07-01 07:13] LABS: Glucose, Whole Blood 169 mg/dL (60-115)
[2021-07-01 07:28] LABS: Venous Blood Gas Refer to POC result
[2021-07-01] MEDS: Insulin Lispro 100 UNIT/ML 3 ML VIAL SUBCUT ×4 (07:29→21:55)
[2021-07-01] MEDS: 0.9 % Sodium Chloride Flush 3 ML SYRINGE IVFLUSH ×2 (07:30→16:37)
[2021-07-01] MEDS: Nitroglycerin 2 % Oint 1 GM Packet 0.5 INCH TRANSDERMA ×3 (07:31→20:55)
[2021-07-01] MEDS: Metoprolol Tartrate 100 MG TABLET PO ×2 (07:32→20:54)
[2021-07-01] MEDS: Chlorhexidine Gluc Oral Rinse 15 ML MOUTHWASH BUCCAL (07:32)
[2021-07-01] MEDS: Chlorothiazide Sodium 500 MG VIAL IVPUSH (07:33)
[2021-07-01] MEDS: propofoL 1,000 MG/100 ML VIAL 25.03 MG IVCONT (09:37)
[2021-07-01] MEDS: fentaNYL citrate/PF 100 MCG/2 ML VIAL 50 MCG IVPUSH ×3 (10:10→11:49)
--- NOTE | 2021-07-01 10:19 | P.PNCC_ITS ---
Subjective Subjective Date of Service: 07/01/21 Interval History: Mr. Slade was transferred emergently to the ICU Jun 29 with impending respiratory arrest, probably from CHF. The patient is a 76 yo M with a past medical history of obesity, hypertension, hyperlipidemia, diabetes, BPH, and arthritis. The pt presented to the hospital on Jun 08 with a generalized weakness, shortness of breath, cough but no sputum production.? Was vaccinated including a booster dose. In the ED, the patient was in new Afib w RVR, Sat 94% on room air (baseline 98% on room air); bilateral rales and wheezing.? COVID-19 positive; CXR showed nonspecific increased bibasilar markings with blunting of both angles.? DDimer 3200, BUN/creat 91/2.7 (baseline about 20/1.1).? CXR had questionable small basilar infiltrates. Tx with diltiazem, metoprolol and admitted to Medicine.? Did not require supplemental oxygen.? Put on full dose Lovenox for the Afib.? Blood cx came back positive for MSSA.? Started vanco.? Renal indices not signif improved with initial tx.? Perfusion scan showed low probability. On Jun 10 had a black BM and dropped his blood pressure.? Hemoglobin down to 10.? Was volume resuscitated and given blood later that night.? Later on blood pressure dropped further, and hemoglobin dropped to the 7 range.? He was transferred to the ICU and given more blood and protamine.? He was taken to the OR by Dr. Mae on June 11 for EGD under GETA.? Found multiple duodenal ulcers, w active bleeding from a visible vessel in a 15x20 mm ulcer at the junction between bulb and second duodenum.? Bleeding controlled with epinephrine and gold probe cautery. Was brought back to the ICU still intubated, in hemorrhagic shock.? HB down to 6.7.? Transfused further and tx w pressors.? Lactate normalized.? Creatinine bumped slightly.? Took days to stabilize and then for his mental status to improve.? He was diuresed and then extubated on Jun 19, tx to [facility] on Jun 20. Subsequent course complicated by atrial fibrillation with RVR.? He required supplemental oxygen, probably secondary to fluid overload.? His chest x-rays never showed anything that looked like COVID lung (and he never had a chest CT), and he was never given any tx for COVID (eg. steroids).? Was treated for pulmonary edema 2? fluid overload from his vol resuscitation.? Significant difficulty managing his RVR, and his ROBIN.? MSSA bacteremia tx w Nafcillin, then changed to cefazolin.? Plaza catheter placed for long-term antibiotics, but the patient pulled it out Jun 28 pm. About noon time Jun 29, the patient was noted to be in respiratory distress, with shallow breathing.? Sat dropped down to 70% on a non-rebreather face mask.? The patient was obtunded w shallow spontaneous respirations.? The patient was mottled in the lower extremities.? The patient was tx down to ICU on BiPAP and intubated.? Echo following that: ECHOCARDIOGRAM for hemodynamic monitoring: Image quality:? Good.? Findings: 1. The patient was in SR. 2. Mild LVH. 3. LV cavity size may be dilated, with slight global hypocontractility, EF 45- 50%.? No RWMAs. 4. RV size mildly dilated. 4. Atria not adequately assessed. 5. AoV is trileaflet with 3+ AI 6. MV morphologically normal with 1-2+ MR by color garett. 7. TV morphologically normal.? Trace TR by color flow.? CWD signal measured 3.5 m/sec (gradient 49mm). 8. IVC 2.6cm w minimal insp collapse.? Estimated CVP 15cm.? RVSP estimate 64mm. Notably, the patient was in sinus rhythm on arrival to the ICU. ?Labs notable for white count stable at 18, hemoglobin down to 7.6, D-dimer down to 2000, BUN/creatinine 69/1.6, lactic acid 1.1, troponin down to 720, BNP down slightly to 2400, PCT 0.1, venous blood gas 7.40/47/+4.? Chest x-ray showed bilateral perihilar airspace disease and small bilateral pleural effusions. The patient?s resp deterioration was thought 2? CHF.? His troponins were thought 2? type II ACS.? He was started on a Lasix drip, along with a Heparin drip for the ACS.? Diuril was added when u/o was insufficient.? The mottling resolved fairly soon after the patient was intubated. ?We transfused him 1 unit of blood overnight because of the low hemoglobin with ACS.? The patient was continued on bid metoprolol. ECHOCARDIOGRAM by the tech yesterday morning:? Mod LVH, Normal LV systolic function with impaired relaxation.? Thickened non coronary cusp, vegetation cannot be completely ruled out.? Mild AI. He woke up fully yesterday with the propofol was turned off, and we were getting ready to extubate from pressure support ventilation, but he went back into rapid atrial fibrillation.? We held extubation.? Bolused with amiodarone x2 and then started an amiodarone drip, along with esmolol.? The morning potassium was 3.3, so we gave him 60 mEq potassium.? As the potassium was finishing, he converted back to sinus rhythm, and has been in sinus rhythm since then. ?Was unable to get good tidal vols later on yesterday so resdated and put him back on AC for the night.? Hb was unchanged yesterday despite getting 1 unit PRBCs, therefore we turned off the heparin.? We?re waiting for a stool guiac. ?We gave him another 1 unit RBCs. Turned the propofol off again this morning.? He was awake, but hypoanimated. ?Gave him Provigil 200 mg.? Morning CVBG showed 7.54/30/+4.? Extubated easily from PSV onto BiPAP.? On 14/11/30%, RR 18-25, Vt 450-800.? HR 74, BP 141/48 on Levophed 0.02ug.? No JVD at 30?.? Chest CTA.? Regular rate and rhythm, normal- sounding S1 and S2, with no murmur or gallops.? Abdomen is obese and benign.? He has 1-2 +edema, After a while on BiPAP, he pulled the mask off and we put him on HFNC, 53L/33%.? RR is 24, Sat 92%.? Minimal WOB if at all.? At about 2:05 pm, he climber over the bedrail and fell OOB.? He was lying supine on the floor.? We picked him up and got him back into bed.? Breathing easy.? Mental status is actually signif improved than last time I looked at him about 45-60 min previously.? No apparent injury.? Neuro status intact.? No need for a head CT, in my clinical opinion. U/O averaging about 100+ cc/hr on Lasix drip + diuril daily. LABORATORY DATA:? Below.? Notably, Hb up to 9.3 from 7.6 yesterday after one unit RBC.? Sodium up to 149, BUN steady, creatinine up to 2.2, K+ 3.3, POC about 180.? IMPRESSION: 1. Acute resp failure.? Can?t be certain what happened on Jun 29.? Judging by the lactate and the echo, there was no circulatory or infectious catastrophe.? The CXR, IMO, showed significant CHF.? (It was also c/w severe COVID, but his prior course and his A-a gradient on the ventilator were inconsistent with severe COVID).? So most likely that event was hypoxemia with ventilatory failure 2? CHF, altho why the event occurred seemingly suddenly is unclear.? (I also don?t think the event was aspiration or bacterial pneumonia, because those were inconsistent with his hemodynamics and A-a gradient, and lack of toxicity.) 2. 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 ?No surprise given his obesity and probable CYNDI, given his head/neck habitus.? I?m continuing the Lasix drip, w Diuril.? He?s undoubtedly got at least 4-5 kg at least to diurese. ? Discussed w Dr. Kat. 3. PAfib.? In and out of afib.? Seems to be very potassium sensitive.? We?ll continue the Amiodarone and the oral metoprolol. ?If he can?t take oral metoprolol, I?ll restart the esmolol until he can.? I?ll hold the heparin another day bec of the drop in Hb yesterday, in view of his prior GI bleed. 4. ACS.? Trop?s running high throughout this hospitalization, and 7-800?s since 06/28.? EKG notable for lateral Tw inversion, with maybe 1mm ST depr in leads V5- 6.? No signif change from the last few tracings back to 06/27.? Echo showed no RWMAs.? D/W Dr. Michael, ?He thinks it?s 2? CHF and recommended heparinization. ?Holding the heparin for now.? Ultimately will need cath. 5. New significant AI.? Shun given his bacteremia, and the possibility of an aortic valve vegetation, he needs a CHRIS.? Plan Saturday.? We redrew blood cultures Jun 29. 6. Acute on CKD.? The renal ratio and his body habitus are conclusive evidence that he has RHF/cardiorenal syndrome.? We?ll just push the diuresis. 7. s/p GI bleed:? Was stable last two weeks.? Started heparin Jun 29, and he dropped Hb 1 gram that night.? On bid PPI.? Holding the heparin.? Check stool occult blood. 8. Anemia.? Since he has ACS, I?ll gave him a second unit RBCs yesterday.? Hb is more reasonable today. 9. ID.? MSSA bacteremia.? ? if he has a vegetation.? Plan CHRIS next week.? Repeat BCs negative at 48hrs.? Continuing cefazolin. 10. COVID.? When he was admitted, his room air SpO2 was 94%, vs baseline 98%.? But his oxygenation deficit could have been secondary to heart failure secondary to the AFib.? His chest x-ray was not really consistent with COVID.? So it is not at all certain that he had or has COVID pneumonia.? Even if he does, it hasn?t been clinically relevant. 11. DM.? On SS Lispro. 12. Stage II pressure ulcer on coccyx/bilat buttock.? Nurses and wound nurse following. 13. No evidence of sepsis.? Hypotension in ICU 2? to meds. Critical care time 75+ min. Critical Care Time (minutes): 75 Physical Exam Verdana 4l Vital Signs: Verdana 4d Verdana 4d Vital Signs: Verdana 4d Verdana 4Bd Last Vital Signs Verdana 4d Mathematics Teacher New 4d Mathematics Teacher New 4d Temp 98.5 F 07/01/21 09:03 Mathematics Teacher New 4d Pulse 65 07/01/21 10:00 Mathematics Teacher New 4d Resp 18 07/01/21 10:10 BP 139/57 L 07/01/21 10:00 Pulse Ox 96 07/01/21 10:00 Oxygen Flow Rate 30 07/01/21 07:54 BMI result Body Mass Index 36.0 Objective Data Labs CBC & Chem 7: 07/01/21 05:28 07/01/21 05:28 Labs: Laboratory Results - last 24 hr 06/29/21 06/30/21 06/30/21 19:08 11:18 16:13 WBC RBC Hgb Hct MCV MCH MCHC RDW Plt Count MPV Immature Gran % (Auto) Neut % (Auto) Lymph % (Auto) [place] % (Auto) Eos % (Auto) Baso % (Auto) Lymph # (Auto) [place] # (Auto) Eos # (Auto) Baso # (Auto) Abs Immat Gran (auto) Absolute Neuts (auto) Absolute Nucleated RBC Nucleated RBC % (auto) PTT (Heparin Protocol) VBG pH VBG pCO2 VBG pO2 VBG HCO3 VBG O2 Saturation VBG Base Excess Sodium Potassium Chloride Carbon Dioxide Anion Gap BUN Creatinine Estim Creat Clear Calc Estimated GFR POC Glucose 206 H 193 H Random Glucose Calcium Phosphorus Magnesium Total Bilirubin AST ALT Alkaline Phosphatase Total Protein Albumin Blood Type O Positive Antibody Screen NEGATIVE Crossmatch See Detail 06/30/21 06/30/21 06/30/21 16:48 16:48 16:48 WBC RBC Hgb 9.1 L Hct 28.1 L MCV MCH MCHC RDW Plt Count MPV Immature Gran % (Auto) Neut % (Auto) Lymph % (Auto) [place] % (Auto) Eos % (Auto) Baso % (Auto) Lymph # (Auto) [place] # (Auto) Eos # (Auto) Baso # (Auto) Abs Immat Gran (auto) Absolute Neuts (auto) Absolute Nucleated RBC Nucleated RBC % (auto) PTT (Heparin Protocol) 25.0 L D VBG pH VBG pCO2 VBG pO2 VBG HCO3 VBG O2 Saturation VBG Base Excess Sodium 148 H Potassium 3.9 Chloride 107 Carbon Dioxide 27 Anion Gap 18 BUN 73 H Creatinine 2.17 H Estim Creat Clear Calc 39.0 Estimated GFR 30 POC Glucose Random Glucose 195 H Calcium 8.1 L Phosphorus 3.3 Magnesium 2.2 Total Bilirubin AST ALT Alkaline Phosphatase Total Protein Albumin Blood Type Antibody Screen Crossmatch 06/30/21 07/01/21 07/01/21 21:19 05:28 05:28 WBC 17.9 H RBC 3.13 L D Hgb 9.3 L Hct 29.1 L MCV 93.0 MCH 29.7 MCHC 32.0 RDW 18.7 H Plt Count 221 MPV 11.7 Immature Gran % (Auto) 3.8 H Neut % (Auto) 79.1 H Lymph % (Auto) 4.9 L [place] % (Auto) 4.7 Eos % (Auto) 7.3 H Baso % (Auto) 0.2 Lymph # (Auto) 0.9 L [place] # (Auto) 0.9 Eos # (Auto) 1.3 H Baso # (Auto) 0.0 Abs Immat Gran (auto) 0.68 H Absolute Neuts (auto) 14.2 H Absolute Nucleated RBC 0.080 H Nucleated RBC % (auto) 0.4 H PTT (Heparin Protocol) VBG pH VBG pCO2 VBG pO2 VBG HCO3 VBG O2 Saturation VBG Base Excess Sodium 149 H Potassium 3.3 Chloride 108 Carbon Dioxide 24 Anion Gap 20 BUN 76 H Creatinine 2.21 H Estim Creat Clear Calc 38.7 Estimated GFR 29 POC Glucose 192 H Random Glucose 182 H Calcium 8.2 L Phosphorus 3.2 Magnesium 2.1 Total Bilirubin 0.6 AST 24 ALT < 6 Alkaline Phosphatase 70 Total Protein 5.4 L Albumin 2.7 L Blood Type Antibody Screen Crossmatch 07/01/21 07/01/21 05:30 07:08 WBC RBC Hgb Hct MCV MCH MCHC RDW Plt Count MPV Immature Gran % (Auto) Neut % (Auto) Lymph % (Auto) [place] % (Auto) Eos % (Auto) Baso % (Auto) Lymph # (Auto) [place] # (Auto) Eos # (Auto) Baso # (Auto) Abs Immat Gran (auto) Absolute Neuts (auto) Absolute Nucleated RBC Nucleated RBC % (auto) PTT (Heparin Protocol) VBG pH 7.54 H VBG pCO2 30 VBG pO2 52 VBG HCO3 26 VBG O2 Saturation 88.0 VBG Base Excess 4.5 Sodium Potassium Chloride Carbon Dioxide Anion Gap BUN Creatinine Estim Creat Clear Calc Estimated GFR POC Glucose 169 H Random Glucose Calcium Phosphorus Magnesium Total Bilirubin AST ALT Alkaline Phosphatase Total Protein Albumin Blood Type Antibody Screen Crossmatch Microbiology Microbiology Results: Microbiology 06/29/21 15:20 Blood - Venous Blood Culture - Preliminary No growth after 24 hours. 06/29/21 15:20 Blood - Venous Blood Culture - Preliminary No growth after 24 hours. 06/29/21 20:32 Urine Catheterized - Villa Catheter Urine Culture - Preliminary Culture in progress. 06/30/21 02:16 Sputum - Suctioned Gram Stain - Final 06/19/21 14:54 Blood - Venous Blood Culture - Final No growth after 5 days. 06/19/21 14:55 Blood - Venous Blood Culture - Final No growth after 5 days. 06/09/21 17:15 Blood - Venous Blood Culture - Final Staphylococcus aureus 06/09/21 17:10 Blood - Venous Blood Culture - Final Staphylococcus aureus 06/08/21 23:11 Blood - Venous Blood Culture - Final Staphylococcus aureus 06/08/21 23:11 Blood - Venous Blood Culture - Final Staphylococcus aureus Quality Stroke Does the patient have a stroke diagnosis?: No VTE Prior VTE?: No VTE Risk Level:: Medical - moderate - high VTE Device Contraindication: Treatment Not Indicated VTE Drug Contraindication: Treatment Not Indicated Critical Care Time Critical Care Time (minutes): 90
[2021-07-01] MEDS: modafiniL 100 MG TABLET 200 MG PO (10:27)
[2021-07-01] MEDS: Potassium Chloride/H20 40 MEQ/100 ML PIGGYBACK 100 MEQ IV ×2 (10:34→18:31)
[2021-07-01] MEDS: Magnesium Sulfate/D5W 1 GM/100 ML PIGGYBACK IV (10:35)
[2021-07-01 11:31] LABS: Glucose, Whole Blood 205 mg/dL (60-115)
[2021-07-01] MEDS: Potassium Chloride/H20 40 MEQ/100 ML PIGGYBACK 50 MEQ IV (11:53)
[2021-07-01] MEDS: Amiodarone HCL 900 MG in 0.9 % Sodium Chloride 500 ML 17.27 MG IVCONT (11:58)
--- NOTE | 2021-07-01 13:06 | P.PNNP_ITS ---
Subjective Subjective Date of Service: 07/01/21 Principal diagnosis: CKD. CHF Interval history: Mr. Slade was transferred emergently to the ICU yesterday with impending respiratory arrest, probably from CHF. The patient is a 76 yo M with a past medical history of obesity, hypertension, hyperlipidemia, diabetes, BPH, and arthritis. The pt presented to the hospital on Jun 08 with a generalized weakness, shortness of breath, cough but no sputum production.? Was vaccinated including a booster dose. new Afib w RVR, Sat 94% on room air (baseline 98% on room air); bilateral rales and wheezing.? COVID-19 positive; CXR showed nonspecific increased bibasilar markings with blunting of both angles.? WBC 19, DDimer 3200, BUN/creat 91/2.7 (baseline about 20/1.1).? Trop 46, BNP 300 (no prev trop level).? CXR had questionable small basilar infiltrates. i.? Creatinine bumped slightly.? Took days to stabilize and then for his mental status to improve.? He was diuresed and then extubated on Jun 19, [place] [facility] [place] reintubated Na up and creat up ECHOCARDIOGRAM for hemodynamic monitoring: Image quality:? Good.? Findings: 1. The patient was in SR. 2. Mild LVH. 3. LV cavity size may be dilated, with slight global hypocontractility, EF 45- 50%.? No RWMAs. increase free H2O intake IV and avoid diuretics Physical Exam Verdana 4l Vital Signs: Verdana 4d Verdana 4d Vital Signs: Verdana 4d Verdana 4Bd Last Vital Signs Verdana 4d [employer]ation Technician New 4d Solar Fabrication Technician New 4d Temp 98.5 F 07/01/21 09:03 Solar Fabrication Technician New 4d Pulse 66 07/01/21 12:00 Solar Fabrication Technician New 4d Resp 24 H 07/01/21 12:13 BP 107/35 L 07/01/21 12:00 Pulse Ox 95 07/01/21 12:00 Oxygen Flow Rate 30 07/01/21 07:54 BMI result Body Mass Index 36.0 Const: Other: Gen:? Awake alert, in acute respiratory distress, able to talk in full sentences HEENT: sclera anicteric, moist mucus membranes Neck: supple,+ jvd Lungs: Coarse breath sounds, no crackles, tachypnea Heart: irregular, no murmurs Abd: soft, non-tender, obese Ext: trace edema Skin: significant pressure injury both buttocks right greater than left is stage II coccyx. Neuro: alert and oriented x3, no focal findings Psych: appropriate affect General: cooperative, comfortable, no acute distress, alert, awake, ill appearing and other (Arousable) Nutritional Appearance: obese Orientation/consciousness: patient oriented x3 HENMT: Head: Yes normal to inspection Eyes: General: appearance normal, both eyes and all related structures Sclerae: sclerae normal EOM: EOMs intact bilaterally Neck: Other: JVD present Neck: Yes normal visual inspection, Yes no lymphadenopathy, Yes trachea midline, Yes supple and Yes no JVD Resp: Other: On ventilator Effort & Inspection: normal respiratory effort, able to speak in complete sentences, decreased respiratory effort, not labored and no respiratory distress Auscultation: clear to auscultation bilaterally, crackles ( Bibasilar), no rales, no rhonchi, no wheezes and diminished lung sounds Cardio: Other: irregular, AFib Jugular venous distension: no JVD and JVD Palpation: normal PMI Rate: regular rate and tachycardic Rhythm: regular rhythm and abnormal rhythm irregularly irregular Heart sounds: S1 normal heart sound present, S2 normal heart sound present, no click, no gallops, no murmurs and no rubs Peripheral pulses: Peripheral pulses 2+ throughout GI: Other: abdomen is soft and without masses Inspection: Yes normal to inspection and Yes obesity Palpation (GI): Soft to palpation, not firm, nontender, no guarding, not rigid and Other GI palpation findings present ( Nontender) Auscultation: normal bowel sounds Skin: General skin exam: no rashes or lesions noted and ecchymosis Neuro: General: patient oriented x3 and no focal motor deficits Extrem: Other: Pitting edema in lower extremities General: Yes normal to inspection, Yes no clubbing, cyanosis or edema, Yes no pedal edema, No clubbing, No cyanosis, Yes edema and Yes pedal edema ( 1+ bilateral) Psych: Appearance: grossly normal Objective Data Labs CBC & Chem 7: 07/01/21 05:28 07/01/21 05:28 Labs: Laboratory Results - last 24 hr 06/29/21 06/30/21 06/30/21 19:08 16:13 16:48 WBC RBC Hgb Hct MCV MCH MCHC RDW Plt Count MPV Immature Gran % (Auto) Neut % (Auto) Lymph % (Auto) Victoria % (Auto) Eos % (Auto) Baso % (Auto) Lymph # (Auto) Victoria # (Auto) Eos # (Auto) Baso # (Auto) Abs Immat Gran (auto) Absolute Neuts (auto) Absolute Nucleated RBC Nucleated RBC % (auto) PTT (Heparin Protocol) 25.0 L D VBG pH VBG pCO2 VBG pO2 VBG HCO3 VBG O2 Saturation VBG Base Excess Sodium Potassium Chloride Carbon Dioxide Anion Gap BUN Creatinine Estim Creat Clear Calc Estimated GFR POC Glucose 193 H Random Glucose Calcium Phosphorus Magnesium Total Bilirubin AST ALT Alkaline Phosphatase Total Protein Albumin Blood Type O Positive Antibody Screen NEGATIVE Crossmatch See Detail 06/30/21 06/30/21 06/30/21 16:48 16:48 21:19 WBC RBC Hgb 9.1 L Hct 28.1 L MCV MCH MCHC RDW Plt Count MPV Immature Gran % (Auto) Neut % (Auto) Lymph % (Auto) Victoria % (Auto) Eos % (Auto) Baso % (Auto) Lymph # (Auto) Victoria # (Auto) Eos # (Auto) Baso # (Auto) Abs Immat Gran (auto) Absolute Neuts (auto) Absolute Nucleated RBC Nucleated RBC % (auto) PTT (Heparin Protocol) VBG pH VBG pCO2 VBG pO2 VBG HCO3 VBG O2 Saturation VBG Base Excess Sodium 148 H Potassium 3.9 Chloride 107 Carbon Dioxide 27 Anion Gap 18 BUN 73 H Creatinine 2.17 H Estim Creat Clear Calc 39.0 Estimated GFR 30 POC Glucose 192 H Random Glucose 195 H Calcium 8.1 L Phosphorus 3.3 Magnesium 2.2 Total Bilirubin AST ALT Alkaline Phosphatase Total Protein Albumin Blood Type Antibody Screen Crossmatch 07/01/21 07/01/21 07/01/21 05:28 05:28 05:30 WBC 17.9 H RBC 3.13 L D Hgb 9.3 L Hct 29.1 L MCV 93.0 MCH 29.7 MCHC 32.0 RDW 18.7 H Plt Count 221 MPV 11.7 Immature Gran % (Auto) 3.8 H Neut % (Auto) 79.1 H Lymph % (Auto) 4.9 L Victoria % (Auto) 4.7 Eos % (Auto) 7.3 H Baso % (Auto) 0.2 Lymph # (Auto) 0.9 L Victoria # (Auto) 0.9 Eos # (Auto) 1.3 H Baso # (Auto) 0.0 Abs Immat Gran (auto) 0.68 H Absolute Neuts (auto) 14.2 H Absolute Nucleated RBC 0.080 H Nucleated RBC % (auto) 0.4 H PTT (Heparin Protocol) VBG pH 7.54 H VBG pCO2 30 VBG pO2 52 VBG HCO3 26 VBG O2 Saturation 88.0 VBG Base Excess 4.5 Sodium 149 H Potassium 3.3 Chloride 108 Carbon Dioxide 24 Anion Gap 20 BUN 76 H Creatinine 2.21 H Estim Creat Clear Calc 38.7 Estimated GFR 29 POC Glucose Random Glucose 182 H Calcium 8.2 L Phosphorus 3.2 Magnesium 2.1 Total Bilirubin 0.6 AST 24 ALT < 6 Alkaline Phosphatase 70 Total Protein 5.4 L Albumin 2.7 L Blood Type Antibody Screen Crossmatch 07/01/21 07/01/21 07:08 11:26 WBC RBC Hgb Hct MCV MCH MCHC RDW Plt Count MPV Immature Gran % (Auto) Neut % (Auto) Lymph % (Auto) Victoria % (Auto) Eos % (Auto) Baso % (Auto) Lymph # (Auto) Victoria # (Auto) Eos # (Auto) Baso # (Auto) Abs Immat Gran (auto) Absolute Neuts (auto) Absolute Nucleated RBC Nucleated RBC % (auto) PTT (Heparin Protocol) VBG pH VBG pCO2 VBG pO2 VBG HCO3 VBG O2 Saturation VBG Base Excess Sodium Potassium Chloride Carbon Dioxide Anion Gap BUN Creatinine Estim Creat Clear Calc Estimated GFR POC Glucose 169 H 205 H Random Glucose Calcium Phosphorus Magnesium Total Bilirubin AST ALT Alkaline Phosphatase Total Protein Albumin Blood Type Antibody Screen Crossmatch Microbiology Microbiology Results: Microbiology 06/29/21 20:32 Urine Catheterized - Villa Catheter Urine Culture - Final No growth. 06/30/21 02:16 Sputum - Suctioned Gram Stain - Final 06/30/21 02:16 Sputum - Suctioned Sputum Culture - Preliminary Culture in progress. 06/29/21 15:20 Blood - Venous Blood Culture - Preliminary No growth after 24 hours. 06/29/21 15:20 Blood - Venous Blood Culture - Preliminary No growth after 24 hours. 06/19/21 14:54 Blood - Venous Blood Culture - Final No growth after 5 days. 06/19/21 14:55 Blood - Venous Blood Culture - Final No growth after 5 days. 06/09/21 17:15 Blood - Venous Blood Culture - Final Staphylococcus aureus 06/09/21 17:10 Blood - Venous Blood Culture - Final Staphylococcus aureus 06/08/21 23:11 Blood - Venous Blood Culture - Final Staphylococcus aureus 06/08/21 23:11 Blood - Venous Blood Culture - Final Staphylococcus aureus Procedures Date of Service Date of Service: 07/01/21 Assessment & Plan Assessment and plan (1) Acute respiratory failure: Status: Acute Assessment and Plan: Acute respiratory failure in this elderly gentleman which precipitated very quickly yesterday, retrospectively appears to be due to rapid atrial fibrillation flutter causing ischemic heart failure. There is high likelihood of underlying significant coronary artery disease. His troponins are mildly el evated and there is no clear rise and fall consistent with acute myocardial infarction. However elevated troponins could be due to subendocardial strain and/or underlying significant obstructive coronary disease and myocardial damage due to rapid heart rate. He has responded very well to diuretic regimen and nitrates. Also responded well to conversion to normal rhythm. At this point time will continue pursue aggressive rhythm control approach and start him on oral amiodarone loading with 400 mg b.i.d.. Clinically seems to be now much improved fluid status. May switch from Lasix drip to p.o. Bumex. His urine output is reduced which is not unusual in patient to go into flash pulmonary e nalini due to acute ischemia. May not require as much diuretics. Continue blood pressure control. Continue nitrates as anti ischemic therapy and has preload reduction. Once his clinical status has improved I think he will benefit with ischemic workup either by cardiac catheterization. Continue to monitor renal function closely. Consider transfusion of packed RBC to maintain hematocrit over 30. Follow with IV Lasix bolus if you transfuse him. There was concern for acute endocarditis/acute aortic regurgitation. By echocardiogram today does not appear to be the case. Blood cultures have been drawn. If he has positive blood cultures may require transfer to [facility] for CHRIS and further evaluation of his aortic valve. Will follow with you (2) Acute renal failure: Status: Acute Assessment and Plan: underlying CKD ROBIN 2nd to covid and vol depletion high Na replace with IV 1/2 NS 100 cc hr Time Spent With Patient Time: Total time spent is greater than 50% in coordination of care (as documented) at patient's floor/unit and/or counseling patient: Progress Note: Quality Stroke Does the patient have a stroke diagnosis?: No
[2021-07-01] MEDS: HYDROmorphone HCl 1 MG/ML SYRINGE 0.5 MG IVPUSH (14:19)
[2021-07-01 14:49] LABS: VBG Base Excess 4.6 mmol/L; VBG HCO3 29 mmol/L (22-26); VBG pCO2 42 mmHg; VBG pH 7.44 (7.32-7.43); VBG pO2 48 mmHg
[2021-07-01] MEDS: Furosemide 200 MG in 0.9 % Sodium Chloride 80 ML IVCONT (14:53)
--- NOTE | 2021-07-01 15:23 | PC.NURSE ---
SEDATION VACATION PER MD AT 0948. EXTUBATED TO BIPAP AT 1154. TRANSITIONED TO HIGH FLOW AND TOLERATING WELL. TELESITTER REQUESTED POST EXTUBATION - NONE AVAILABLE AT THAT TIME. BED ALARM ON. PATIENT SLOW/WHISPER VOICE. KNOWS NAME, AT [facility] AND THAT IT IS JUNE. PATIENTS CALLED AND UPDATED/SPOKE WITH PATIENT POST EXTUBATION. UNWITNESSED FALL TO FLOOR AT 1400. FOUND LAYING FLAT ON THIER BACK, HALF OF HEAD ON FLOOR/HALF ON HIGH FLOW IV POLE. MD CALLED BEDSIDE, BARTACKER NOTIFIED AND SECURITY CALLED TO ASSIST WITH LIFT. PATIENT DENIES PAIN OR HITTING HEAD. NO NEW OPEN AREAS TO SKIN OR SIGNS OF BLEEDING. PER MD AT THIS TIME CT SCAN DOES NOT NEED TO BE PERFORMED. VBG DRAW. ESPINOSA BAG BROKEN DURING FALL - BAG CHANGED. PATIENT KEEPS ASKING FOR WATER - SWALLOW EVAL PERFORMED: FAILED. WILL CONTINUE TO MONITOR. INCIDENT REPORT COMPLETED.
[2021-07-01 16:33] LABS: Glucose, Whole Blood 172 mg/dL (60-115)
[2021-07-01 17:50] LABS: Anion Gap 19 (12-20); Blood Urea Nitrogen 73 mg/dL (9-16); Calcium 8.4 mg/dL (8.4-10.2); Carbon Dioxide 28 mmol/L (22-29); Chloride 107 mmol/L (96-108); Creatinine Clr Calc Pharmacy 37.3; Estimated Glomerular Filt Rate 28; Glucose Random 177 mg/dL (60-115); Potassium 3.7 mmol/L (3.3-5.1); Sodium 150 mmol/L (135-145)
[2021-07-01] MEDS: Dextrose 5 % 1,000 ML 80 ML IVCONT (18:38)
[2021-07-01] MEDS: Amiodarone/Dextrose 150 MG/100 ML PLAST..BAG 600 MG IV (20:36)
[2021-07-01] MEDS: Esmolol HCl/NaCl Iso 2,500 MG/250 ML IV.SOLN 36.18 MG IVCONT (20:37)
[2021-07-01] MEDS: DAPTOmycin 900 MG in 0.9 % Sodium Chloride 50 ML 136 MG IV (21:28)
[2021-07-01 21:41] LABS: Glucose, Whole Blood 182 mg/dL (60-115)
[2021-07-02] VITALS (39 sets, daily range): BP systolic 91–140; BP diastolic 32–85; PULSE 57–105; RESP 13–35; TEMP 35.7–37; O2SAT 88–100; BMI 35.2
[2021-07-02] MEDS: 0.9 % Sodium Chloride Flush 3 ML SYRINGE IVFLUSH ×3 (00:01→23:40)
--- NOTE | 2021-07-02 03:03 | PC.NURSE ---
07/01/212014 - Patient noted to be in Afib RVR , HR as high as 150's. Dr. Guillaume notified, Esmolol drip and Amniodarone bolus ordered. Medications administered HR decreased to low 100's. Scheduled Metoprolol administered po at 2100 as per order. Following HR decreased to 70 and patient converted back to NSR. Esmolol infusion stopped and Dr. Guillaume notiifed. VSS , will continue to monitor.
[2021-07-02 05:34] LABS: VBG Base Excess 5.4 mmol/L; VBG HCO3 30 mmol/L (22-26); VBG pCO2 47 mmHg; VBG pH 7.41 (7.32-7.43); VBG pO2 44 mmHg
[2021-07-02 05:54] LABS: Venous Blood Gas Refer to POC result
[2021-07-02 06:22] LABS: MANUAL DIFF FLAG NO
[2021-07-02 06:27] LABS: Basophils Absolute Auto 0.1 X10*3/uL (0.0-0.2); Basophils Percent Auto 0.2 % (0-2); Eosinophils Absolute Auto 1.3 X10*3/uL (0.0-0.4); Eosinophils Percent Auto 5.9 % (0-4); Hematocrit 31.2 % (42.0-52.0); Hemoglobin 9.8 g/dl (14.0-18.0); Imm Gran Abs Auto 0.63 X10*3/uL (0.00-0.03); Imm Gran Pct Auto 2.9 % (0.0-0.4); Lymphocytes Absolute Auto 0.8 X10*3/uL (1.2-4.9); Lymphocytes Percent Auto 3.5 % (20-40); Mean Corpuscular HGB Conc 31.4 g/dl (31.0-36.0); Mean Corpuscular Hemoglobin 29.4 pg (27.0-33.0); Mean Corpuscular Volume 93.7 fL (80.0-98.0); Mean Platelet Volume 11.8 fL (9.4-12.4); Monocytes Percent Auto 4.8 % (2-11); NRBC Pct Auto 0.3 /100WBC (0.0-0.2); Neutrophils Absolute Auto 17.8 x10*3/uL (2.0-8.3); Neutrophils Percent Auto 82.7 % (45-73); Platelet Count 190 X10*3/uL (160-400); Red Blood Count 3.33 X10*6/uL (4.60-5.80); Red Cell Distribution Width 18.6 % (11.0-16.0); White Blood Count 21.5 X10*3/uL (4.8-10.8)
[2021-07-02 06:46] LABS: Troponin-I High Sensitivity 480.1 ng/L (<3.5-35.0)
[2021-07-02] MEDS: Dextrose 5 % 1,000 ML 80 ML IVCONT ×2 (06:46→17:02)
[2021-07-02 07:11] LABS: Alanine Aminotransferase < 6 U/L (0-40); Alkaline Phosphatase 73 U/L (39-117); Anion Gap 18 (12-20); Aspartate Amino Transferase 25 U/L (5-37); Bilirubin Total 0.7 mg/dL (0.0-1.0); Blood Urea Nitrogen 72 mg/dL (9-16); Calcium 8.4 mg/dL (8.4-10.2); Carbon Dioxide 28 mmol/L (22-29); Chloride 106 mmol/L (96-108); Creatinine Clr Calc Pharmacy 39.7; Estimated Glomerular Filt Rate 30; Glucose Random 231 mg/dL (60-115); Potassium 4.1 mmol/L (3.3-5.1); Sodium 148 mmol/L (135-145); Total Protein 5.8 g/dL (6.5-8.0)
[2021-07-02 07:30] LABS: Venous Blood Gas Refer to POC result
[2021-07-02 07:33] LABS: Glucose, Whole Blood 223 mg/dL (60-115)
[2021-07-02] MEDS: Chlorothiazide Sodium 500 MG VIAL IVPUSH (07:47)
[2021-07-02] MEDS: Metoprolol Tartrate 100 MG TABLET PO ×2 (07:47→20:55)
[2021-07-02] MEDS: modafiniL 100 MG TABLET 200 MG PO (07:47)
[2021-07-02] MEDS: Insulin Lispro 100 UNIT/ML 3 ML VIAL SUBCUT ×4 (07:48→20:55)
[2021-07-02] MEDS: Nitroglycerin 2 % Oint 1 GM Packet 0.5 INCH TRANSDERMA ×3 (07:48→20:55)
--- NOTE | 2021-07-02 09:34 | P.PNCC_ITS ---
Subjective Subjective Date of Service: 07/02/21 Interval History: Mr. Slade was transferred emergently to the ICU Jun 29 with impending respiratory arrest, probably from CHF. The patient is a 76 yo M with a past medical history of obesity, hypertension, hyperlipidemia, diabetes, BPH, and arthritis. The pt presented to the hospital on Jun 08 with a generalized weakness, shortness of breath, cough but no sputum production.? Was vaccinated including a booster dose. In the ED, the patient was in new Afib w RVR, Sat 94% on room air (baseline 98% on room air); bilateral rales and wheezing.? COVID-19 positive; CXR showed nonspecific increased bibasilar markings with blunting of both angles.? DDimer 3200, BUN/creat 91/2.7 (baseline about 20/1.1).? CXR had questionable small basilar infiltrates. Tx with diltiazem, metoprolol and admitted to Medicine.? Did not require supplemental oxygen.? Put on full dose Lovenox for the Afib.? Blood cx came back positive for MSSA.? Started vanco.? Renal indices not signif improved with initial tx.? Perfusion scan showed low probability. On Jun 10 had a black BM and dropped his blood pressure.? Hemoglobin down to 10.? Was volume resuscitated and given blood later that night.? Later on blood pressure dropped further, and hemoglobin dropped to the 7 range.? He was transferred to the ICU and given more blood and protamine.? He was taken to the OR by Dr. Mae on June 11 for EGD under GETA.? Found multiple duodenal ulcers, w active bleeding from a visible vessel in a 15x20 mm ulcer at the junction between bulb and second duodenum.? Bleeding controlled with epinephrine and gold probe cautery. Was brought back to the ICU still intubated, in hemorrhagic shock.? HB down to 6.7.? Transfused further and tx w pressors.? Lactate normalized.? Creatinine bumped slightly.? Took days to stabilize and then for his mental status to improve.? He was diuresed and then extubated on Jun 19, tx to [facility] on Jun 20. Subsequent course complicated by atrial fibrillation with RVR.? He required supplemental oxygen, probably secondary to fluid overload.? His chest x-rays never showed anything that looked like COVID lung (and he never had a chest CT), and he was never given any tx for COVID (eg. steroids).? Was treated for pulmonary edema 2? fluid overload from his vol resuscitation.? Significant difficulty managing his RVR, and his ROBIN.? MSSA bacteremia tx w Nafcillin, then changed to cefazolin.? Plaza catheter placed for long-term antibiotics, but the patient pulled it out Jun 28 pm. About noon time Jun 29, the patient was noted to be in respiratory distress, with shallow breathing.? Sat dropped down to 70% on a non-rebreather face mask.? The patient was obtunded w shallow spontaneous respirations.? The patient was mottled in the lower extremities.? The patient was tx down to ICU on BiPAP and intubated.? Echo following that: ECHOCARDIOGRAM for hemodynamic monitoring: Image quality:? Good.? Findings: 1. The patient was in SR. 2. Mild LVH. 3. LV cavity size may be dilated, with slight global hypocontractility, EF 45- 50%.? No RWMAs. 4. RV size mildly dilated. 4. Atria not adequately assessed. 5. AoV is trileaflet with 3+ AI 6. MV morphologically normal with 1-2+ MR by color garett. 7. TV morphologically normal.? Trace TR by color flow.? CWD signal measured 3.5 m/sec (gradient 49mm). 8. IVC 2.6cm w minimal insp collapse.? Estimated CVP 15cm.? RVSP estimate 64mm. Notably, the patient was in sinus rhythm on arrival to the ICU.? Labs notable for white count stable at 18, hemoglobin down to 7.6, D-dimer down to 2000, BUN/creatinine 69/1.6, lactic acid 1.1, troponin down to 720, BNP down slightly to 2400, PCT 0.1, venous blood gas 7.40/47/+4.? Chest x-ray showed bilateral perihilar airspace disease and small bilateral pleural effusions. The patient?s resp deterioration was thought 2? CHF.? His troponins attributed to type II ACS. ?Started on Lasix drip, along with a Heparin drip for ACS.? Diuril was added when u/o was insufficient.? The mottling resolved fairly soon after the patient was intubated. ?We transfused him 1 unit of blood overnight because of the low hemoglobin with ACS.? The patient was continued on bid metoprolol. ECHOCARDIOGRAM by [facility] Jun 30:? Mod LVH, Normal LV systolic function with impaired relaxation.? Thickened non coronary cusp, vegetation cannot be completely ruled out.? Mild AI. We were getting ready to extubate from pressure support on Jun 30, but he went back into rapid atrial fibrillation.? Held extubation, bolused with amiodarone and started a drip, along with esmolol, and gave 60 mEq potassium.? As the potassium was finishing, he converted back to sinus rhythm.? Hb was unchanged despite getting 1 unit PRBCs, therefore we turned off the heparin.? We?re waiting for a stool guiac.? We gave him another unit RBCs. Extubated yesterday to BiPAP without difficulty after giving him a dose of Provigil.? Then we got him onto HFNC.? At about 2:05 pm, he climber over the bedrail and fell OOB.? He was lying supine on the floor.? We picked him up and got him back into bed.? Breathing easy.? Mental status actually improved .? No apparent injury.? Neuro status intact.? No need for a head CT. Spent the whole night last night on HFNC.? This morning, he was given another dose of Provigil.? He looked tired when I saw him about 929, altho his CVBG showed 7.41/47/+5.? He also went into rapid AFib again.? We put him on BiPAP, and gave him another loading dose of amiodarone.? He converted to SR just after the loading dose finished.? Went back on HFNC after a few hours.? Still hypoanimated and mildly confused, but not agitated. Remains afebrile.? HR 70, SR.? BP 120/40.? On HFNC 45L/50%, RR is 22-26, Sat 95%.? No JVD at 30?.? Chest CTA.? Regular rate and rhythm, normal-sounding S1 and S2, with no murmur or gallops.? Abdomen is obese and benign.? He has 1+edema. U/O averaging > 100cc/hr on Lasix drip + diuril daily. LABORATORY DATA:? Below.? Notably, WBC up to 21, Hb steady.? Sodium down to 1446 on D5W.? Renal indices steady.? BNP up to 2800. CXR today still looks like CHF IMPRESSION: 1. Acute resp failure.? Can?t be certain what happened on Jun 29.? Judging by the lactate and the echo, there was no circulatory or infectious catastrophe.? The CXR, IMO, showed significant CHF.? (It was also c/w severe COVID, but his prior course and his A-a gradient on the ventilator were inconsistent with severe COVID).? So most likely that event was hypoxemia with ventilatory failure 2? CHF, altho why the event occurred seemingly suddenly is unclear.? (I also don?t think the event was aspiration or bacterial pneumonia, because those were inconsistent with his hemodynamics and A-a gradient, and lack of toxicity.)? ? Right heart cath. 2. 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 ?No surprise given his obesity and probable CYNDI (given his head/neck habitus).? I?m bumping the Lasix drip to 20mg/hr.? Continuing Diuril.? He?s undoubtedly got another 4-5 kg to diurese.? Discussed w Dr. Kat. 3. PAfib.? In and out of afib.? Seems to be very potassium sensitive.? We?ll continue the Amiodarone and the oral metoprolol. ?If he can?t take oral metoprolol, I?ll restart the esmolol until he can.? I?ll restart the heparin now, without a bolus. 4. ACS.? Trop?s running high throughout this hospitalization, up to 988.? Then down to 480 today.? No acute ischemic changes.? Echo showed no RWMAs.? D/W Dr. Rodriguez, ?He thinks it?s 2? CHF and recommended heparinization. ?Held the heparin for two days.? Restart now.? Ultimately will need cath. 5. New significant AI.? Shun given his bacteremia, and the possibility of an aortic valve vegetation, he needs a CHRIS.? Plan Saturday.? Blood cultures redrawn on Jun 29 were negative. 6. Acute on CKD.? The renal ratio and his body habitus are conclusive evidence that he has RHF/cardiorenal syndrome.? We?ll just push the diuresis. 7. s/p GI bleed:? Was stable last two weeks.? Started heparin Jun 29, and he dropped Hb 1 gram that night.? On bid PPI.? Held the heparin.? Check stool occult blood. 8. Anemia.? Since he has ACS, I?ll gave him a second unit RBCs Jun 30.? Hb is more reasonable today. 9. ID.? MSSA bacteremia.? ? if he has a vegetation.? Plan CHRIS next week.? Repeat BCs negative.? The patient was on cefazolin.? Changed to Daptomycin yesterday bec of a rash.? The rash is less prominent today.? Still concerned about his WBC.? Sent a PCT. 10. COVID.? When he was admitted, his room air SpO2 was 94%, vs baseline 98%.? But his oxygenation deficit could have been secondary to heart failure secondary to the AFib.? His chest x-ray was not really consistent with COVID.? So it is no t at all certain that he had or has COVID pneumonia.? Even if he does, it hasn?t been clinically relevant. 11. DM.? On SS Lispro. 12. Stage II pressure ulcer on coccyx/bilat buttock.? Nurses and wound nurse following. 13. No evidence of sepsis.? Hypotension in ICU 2? to meds. Critical care time 70+ min. Critical Care Time (minutes): 70 Physical Exam Verdana 4l Vital Signs: Verdana 4d Verdana 4d Vital Signs: Verdana 4d Verdana 4Bd Last Vital Signs Verdana 4d Humane Officer New 4d Humane Officer New 4d Temp 98.6 F 07/02/21 08:00 Humane Officer New 4d Pulse 67 07/02/21 09:00 Humane Officer New 4d Resp 30 H 07/02/21 08:00 BP 140/65 H 07/02/21 09:00 Pulse Ox 88 L 07/02/21 09:00 Oxygen Flow Rate 30 07/01/21 07:54 BMI result Body Mass Index 35.2 Objective Data Labs CBC & Chem 7: 07/06/21 05:20 07/06/21 05:20 Labs: Laboratory Results - last 24 hr 07/01/21 07/01/2122 11:26 14:40 16:27 WBC RBC Hgb Hct MCV MCH MCHC RDW Plt Count MPV Immature Gran % (Auto) Neut % (Auto) Lymph % (Auto) Terrell % (Auto) Eos % (Auto) Baso % (Auto) Lymph # (Auto) Terrell # (Auto) Eos # (Auto) Baso # (Auto) Abs Immat Gran (auto) Absolute Neuts (auto) Absolute Nucleated RBC Nucleated RBC % (auto) VBG pH 7.44 H VBG pCO2 42 VBG pO2 48 VBG HCO3 29 H VBG O2 Saturation 80.0 VBG Base Excess 4.6 Sodium Potassium Chloride Carbon Dioxide Anion Gap BUN Creatinine Estim Creat Clear Calc Estimated GFR POC Glucose 205 H 172 H Random Glucose Calcium Total Bilirubin AST ALT Alkaline Phosphatase Troponin I High Sens Total Protein Albumin 07/01/21 07/01/21 07/02/21 16:50 21:25 05:25 WBC RBC Hgb Hct MCV MCH MCHC RDW Plt Count MPV Immature Gran % (Auto) Neut % (Auto) Lymph % (Auto) Terrell % (Auto) Eos % (Auto) Baso % (Auto) Lymph # (Auto) Terrell # (Auto) Eos # (Auto) Baso # (Auto) Abs Immat Gran (auto) Absolute Neuts (auto) Absolute Nucleated RBC Nucleated RBC % (auto) VBG pH VBG pCO2 VBG pO2 VBG HCO3 VBG O2 Saturation VBG Base Excess Sodium 150 H Potassium 3.7 Chloride 107 Carbon Dioxide 28 Anion Gap 19 BUN 73 H Creatinine 2.29 H Estim Creat Clear Calc 37.3 Estimated GFR 28 POC Glucose 182 H Random Glucose 177 H Calcium 8.4 Total Bilirubin AST ALT Alkaline Phosphatase Troponin I High Sens 480.1 H* D Total Protein Albumin 07/02/21 07/02/21 07/02/21 05:25 05:25 05:28 WBC 21.5 H RBC 3.33 L Hgb 9.8 L Hct 31.2 L MCV 93.7 MCH 29.4 MCHC 31.4 RDW 18.6 H Plt Count 190 MPV 11.8 Immature Gran % (Auto) 2.9 H Neut % (Auto) 82.7 H Lymph % (Auto) 3.5 L Terrell % (Auto) 4.8 Eos % (Auto) 5.9 H Baso % (Auto) 0.2 Lymph # (Auto) 0.8 L Terrell # (Auto) 1.0 Eos # (Auto) 1.3 H Baso # (Auto) 0.1 Abs Immat Gran (auto) 0.63 H Absolute Neuts (auto) 17.8 H Absolute Nucleated RBC 0.060 H Nucleated RBC % (auto) 0.3 H VBG pH 7.41 VBG pCO2 47 VBG pO2 44 VBG HCO3 30 H VBG O2 Saturation 74.0 VBG Base Excess 5.4 Sodium 148 H Potassium 4.1 Chloride 106 Carbon Dioxide 28 Anion Gap 18 BUN 72 H Creatinine 2.13 H Estim Creat Clear Calc 39.7 Estimated GFR 30 POC Glucose Random Glucose 231 H Calcium 8.4 Total Bilirubin 0.7 AST 25 ALT < 6 Alkaline Phosphatase 73 Troponin I High Sens Total Protein 5.8 L Albumin 3.0 L 07/02/21 07:23 WBC RBC Hgb Hct MCV MCH MCHC RDW Plt Count MPV Immature Gran % (Auto) Neut % (Auto) Lymph % (Auto) Terrell % (Auto) Eos % (Auto) Baso % (Auto) Lymph # (Auto) Terrell # (Auto) Eos # (Auto) Baso # (Auto) Abs Immat Gran (auto) Absolute Neuts (auto) Absolute Nucleated RBC Nucleated RBC % (auto) VBG pH VBG pCO2 VBG pO2 VBG HCO3 VBG O2 Saturation VBG Base Excess Sodium Potassium Chloride Carbon Dioxide Anion Gap BUN Creatinine Estim Creat Clear Calc Estimated GFR POC Glucose 223 H Random Glucose Calcium Total Bilirubin AST ALT Alkaline Phosphatase Troponin I High Sens Total Protein Albumin Microbiology Microbiology Results: Microbiology 06/29/21 15:20 Blood - Venous Blood Culture - Preliminary No growth after 48 hours. 06/29/21 15:20 Blood - Venous Blood Culture - Preliminary No growth after 48 hours. 06/29/21 20:32 Urine Catheterized - Villa Catheter Urine Culture - Final No growth. 06/30/21 02:16 Sputum - Suctioned Gram Stain - Final 06/30/21 02:16 Sputum - Suctioned Sputum Culture - Preliminary Culture in progress. 06/19/21 14:54 Blood - Venous Blood Culture - Final No growth after 5 days. 06/19/21 14:55 Blood - Venous Blood Culture - Final No growth after 5 days. 06/09/21 17:15 Blood - Venous Blood Culture - Final Staphylococcus aureus 06/09/21 17:10 Blood - Venous Blood Culture - Final Staphylococcus aureus 06/08/21 23:11 Blood - Venous Blood Culture - Final Staphylococcus aureus 06/08/21 23:11 Blood - Venous Blood Culture - Final Staphylococcus aureus Quality Stroke Does the patient have a stroke diagnosis?: No VTE Prior VTE?: No VTE Risk Level:: Medical - moderate - high VTE Device Contraindication: Treatment Not Indicated VTE Drug Contraindication: Treatment Not Indicated Critical Care Time Critical Care Time (minutes): 60
[2021-07-02] MEDS: HYDROmorphone HCl 1 MG/ML SYRINGE 0.5 MG IVPUSH (09:37)
[2021-07-02] MEDS: Amiodarone/Dextrose 150 MG/100 ML PLAST..BAG 600 MG IV (09:40)
[2021-07-02] MEDS: Furosemide 200 MG in 0.9 % Sodium Chloride 80 ML IVCONT (10:04)
[2021-07-02 11:04] LABS: B Type Natriuretic Peptide 2829 pg/mL (<100)
[2021-07-02 11:12] LABS: Magnesium 2.1 mg/dL (1.6-2.6); Phosphorus 4.1 mg/dL (2.7-4.5)
[2021-07-02 11:15] LABS: Glucose, Whole Blood 219 mg/dL (60-115)
[2021-07-02] MEDS: fentaNYL citrate/PF 100 MCG/2 ML VIAL 50 MCG IVPUSH (11:31)
--- NOTE | 2021-07-02 11:31 | P.PNCA_ITS ---
Subjective Subjective Date of Service: 07/02/21 Principal diagnosis: CKD. CHF Interval history: Patient extubated yesterday. Continues to have intermittent episodes of atrial fibrillation. Last evening had another episode of AFib and received order bolus of amiodarone converted to sinus rhythm. This morning again had atrial fibrillation. Hemodynamically stable. Appears confused. Does not offer any chest pain. Still requiring high levels of oxygen. Currently still on Lasix drip. Review of Systems Review of Systems Yes Unobtainable due to mental condition Physical Exam Vital Signs: Last Vital Signs Temp 96.3 F L 07/02/21 11:14 Pulse 57 07/02/21 11:00 Resp 16 07/02/21 11:04 BP 102/43 L 07/02/21 11:00 Pulse Ox 99 07/02/21 11:00 [place] 4 Oxygen Flow Verdana 4 30 [place] 4 07/01/21 Rate Verd[place] 4 07:54 Verd[place] 4 Verdana 4 BMI result Verdana 4 Body Mass Index Ver[place] 4 35.2 Ver[place] 4 Ver[place]ana 4 Const General: in distress mild and respiratory, ill appearing and lethargic Nutritional Appearance: obese Orientation/consciousness: lethargic Neck Neck: Yes trachea midline and Yes supple Resp Effort & Inspection: decreased respiratory effort Auscultation: crackles (Coarse) diffuse Cardio Palpation: normal PMI Rate: regular rate Rhythm: regular rhythm Heart sounds: S1 normal heart sound present, S2 normal heart sound present, no click, no gallops and no murmurs GI Inspection: Yes obesity Auscultation: normal bowel sounds Skin General skin exam: no rashes or lesions noted Neuro General: moves all extremities Extrem General: Yes no clubbing, cyanosis or edema Objective Labs and Meds Result diagrams: 07/02/21 05:25 07/02/21 05:25 Lab results: Laboratory Results - last 24 hr 07/01/21 07/01/21 07/01/21 11:26 14:40 16:27 WBC RBC Hgb Hct MCV MCH MCHC RDW Plt Count MPV Immature Gran % (Auto) Neut % (Auto) Lymph % (Auto) [place] % (Auto) Eos % (Auto) Baso % (Auto) Lymph # (Auto) [place] # (Auto) Eos # (Auto) Baso # (Auto) Abs Immat Gran (auto) Absolute Neuts (auto) Absolute Nucleated RBC Nucleated RBC % (auto) VBG pH 7.44 H VBG pCO2 42 VBG pO2 48 VBG HCO3 29 H VBG O2 Saturation 80.0 VBG Base Excess 4.6 Sodium Potassium Chloride Carbon Dioxide Anion Gap BUN Creatinine Estim Creat Clear Calc Estimated GFR POC Glucose 205 H 172 H Random Glucose Calcium Phosphorus Magnesium Total Bilirubin AST ALT Alkaline Phosphatase Troponin I High Sens B-Natriuretic Peptide Total Protein Albumin 07/01/21 07/01/21 07/02/21 16:50 21:25 05:25 WBC RBC Hgb Hct MCV MCH MCHC RDW Plt Count MPV Immature Gran % (Auto) Neut % (Auto) Lymph % (Auto) [place] % (Auto) Eos % (Auto) Baso % (Auto) Lymph # (Auto) [place] # (Auto) Eos # (Auto) Baso # (Auto) Abs Immat Gran (auto) Absolute Neuts (auto) Absolute Nucleated RBC Nucleated RBC % (auto) VBG pH VBG pCO2 VBG pO2 VBG HCO3 VBG O2 Saturation VBG Base Excess Sodium 150 H Potassium 3.7 Chloride 107 Carbon Dioxide 28 Anion Gap 19 BUN 73 H Creatinine 2.29 H Estim Creat Clear Calc 37.3 Estimated GFR 28 POC Glucose 182 H Random Glucose 177 H Calcium 8.4 Phosphorus Magnesium Total Bilirubin AST ALT Alkaline Phosphatase Troponin I High Sens 480.1 H* D B-Natriuretic Peptide Total Protein Albumin 07/02/21 07/02/21 07/02/21 05:25 05:25 05:28 WBC 21.5 H RBC 3.33 L Hgb 9.8 L Hct 31.2 L MCV 93.7 MCH 29.4 MCHC 31.4 RDW 18.6 H Plt Count 190 MPV 11.8 Immature Gran % (Auto) 2.9 H Neut % (Auto) 82.7 H Lymph % (Auto) 3.5 L [place] % (Auto) 4.8 Eos % (Auto) 5.9 H Baso % (Auto) 0.2 Lymph # (Auto) 0.8 L [place] # (Auto) 1.0 Eos # (Auto) 1.3 H Baso # (Auto) 0.1 Abs Immat Gran (auto) 0.63 H Absolute Neuts (auto) 17.8 H Absolute Nucleated RBC 0.060 H Nucleated RBC % (auto) 0.3 H VBG pH 7.41 VBG pCO2 47 VBG pO2 44 VBG HCO3 30 H VBG O2 Saturation 74.0 VBG Base Excess 5.4 Sodium 148 H Potassium 4.1 Chloride 106 Carbon Dioxide 28 Anion Gap 18 BUN 72 H Creatinine 2.13 H Estim Creat Clear Calc 39.7 Estimated GFR 30 POC Glucose Random Glucose 231 H Calcium 8.4 Phosphorus 4.1 Magnesium 2.1 Total Bilirubin 0.7 AST 25 ALT < 6 Alkaline Phosphatase 73 Troponin I High Sens B-Natriuretic Peptide Total Protein 5.8 L Albumin 3.0 L 07/02/21 07/02/21 07/02/21 07:23 10:37 11:08 WBC RBC Hgb Hct MCV MCH MCHC RDW Plt Count MPV Immature Gran % (Auto) Neut % (Auto) Lymph % (Auto) [place] % (Auto) Eos % (Auto) Baso % (Auto) Lymph # (Auto) [place] # (Auto) Eos # (Auto) Baso # (Auto) Abs Immat Gran (auto) Absolute Neuts (auto) Absolute Nucleated RBC Nucleated RBC % (auto) VBG pH VBG pCO2 VBG pO2 VBG HCO3 VBG O2 Saturation VBG Base Excess Sodium Potassium Chloride Carbon Dioxide Anion Gap BUN Creatinine Estim Creat Clear Calc Estimated GFR POC Glucose 223 H 219 H Random Glucose Calcium Phosphorus Magnesium Total Bilirubin AST ALT Alkaline Phosphatase Troponin I High Sens B-Natriuretic Peptide 2829 H Total Protein Albumin Imaging Radiologist's impression: Impressions Chest X-Ray 07/02/21 10:09 IMPRESSION: Endotracheal tube and enteric tube have been removed. Bilateral patchy airspace opacities are stable and unchanged. Progress Note: A&P Assessment and plan (1) Acute respiratory failure: Status: Acute Assessment and Plan: Acute respiratory so failure with persistent hypoxemia. Status post ventilation and has been extubated. Clinical scenario is confusing. At this point time not sure if he is in pulmonary edema. Does have coarse breath sounds and crackles all over his lung field. There is a possibility of ischemic heart failure especially when he goes into rapid atrial fibrillation/flutter. However underlying ARDS is also possible. Question under recognized aortic regurgitation although less likely. Consider right heart catheterization if hypoxemia persist and clinical course is uncertain. For now he is currently on Lasix drip. Being followed by Nephrology. Continue monitor intake and output chart as well as monitor his renal function. Check BNP. Repeat chest x-ray finding consistent with bilateral infiltrates question noncardiogenic pulmonary edema versus heart failure. Continue supportive care. Blood pressure is currently optimized. Consider transfusion to maintain hematocrit over 30. Overall prognosis is guarded. If right heart catheterization suggestive of LV failure, consider transfer for cardiac catheterization to [facility]. (2) Paroxysmal A-fib: Status: Acute Assessment and Plan: Paroxysmal atrial fibrillation, currently on amiodarone drip. Continue amiodarone drip. Continue maintain sinus rhythm as much as possible which has helped him overall. Reconsider starting anticoagulation, with IV heparin and monitor hematocrit. Fall Risk Details Current Medications: Current Medications Chlorhexidine Gluconate (Chlorhexidine Gluc Oral Rinse 15 Ml Mouthwash) 15 ml BUCCAL BID [facility] Last Admin: 07/02/21 07:55 Dose: Not Given Documented by: Chlorothiazide Sodium (Chlorothiazide Sodium 500 Mg Vial) 500 mg IVPUSH DAILY [facility]; Protocol Last Admin: 07/02/21 07:47 Dose: 500 mg Documented by: Fentanyl (Fentanyl Citrate/Pf 100 Mcg/2 Ml Vial) 50 mcg IVPUSH Q5M PRN; Protocol PRN Reason: WOB Last Admin: 07/01/21 11:49 Dose: 50 mcg Documented by: Fentanyl (Fentanyl Citrate/Pf 100 Mcg/2 Ml Vial) 100 mcg IVPUSH Q5M PRN; Prot ocol PRN Reason: SEVER WOB Last Admin: 06/30/21 17:21 Dose: 100 mcg Documented by: Finasteride (Finasteride 5 Mg Tablet) 5 mg PO DAILY [facility] Last Admin: 06/30/21 09:05 Dose: 5 mg Documented by: Heparin Sodium (Porcine) (Heparin Sodium,Porcine 5,000 Unit/Ml Vial) 4,800 unit 40 unit/kg (4800 unit) IVPUSH PROTOCOL BOLUS PRN; Protocol PRN Reason: 40 unit/kg - Heparin Protocol Last Admin: 06/30/21 09:30 Dose: 4,800 unit Documented by: Heparin Sodium (Porcine) (Heparin Sodium,Porcine 5,000 Unit/Ml Vial) 9,500 unit 80 unit/kg (9500 unit) IVPUSH PROTOCOL BOLUS PRN; Protocol PRN Reason: 80 unit/kg - Heparin Protocol Hydromorphone HCl (Hydromorphone Hcl 1 Mg/Ml Syringe) 0.5 mg IVPUSH Q10M PRN; Protocol PRN Reason: WOB Last Admin: 07/02/21 09:37 Dose: 0.5 mg Documented by: Propofol (Diprivan) 1,000 mg in 100 mls @ 0 mls/hr IVCONT .Q0M [facility]; Protocol Last Titration: 07/01/21 13:58 Dose: Infused Documented by: Norepinephrine Bitartrate (Levophed) 8 mg in 250 mls @ 0 mls/hr IVCONT .Q0M [facility]; Protocol Last Titration: 07/01/21 13:04 Dose: 0 mcg/kg/min, 0 mls/hr Documented by: Heparin Sodium/Sodium Chloride () 25,000 unit in 250 mls @ 0 mls/hr IVCONT .Q0M [facility]; Protocol Last Titration: 07/01/21 07:13 Dose: Infused Documented by: Esmolol HCl (Brevibloc/Nacl) 2,500 mg in 250 mls @ 0 mls/hr IVCONT .Q0M [facility]; Protocol Last Titration: 07/01/21 21:15 Dose: 0 mcg/kg/min, 0 mls/hr Documented by: Amiodarone HCl 900 mg/ Sodium (Chloride) 518 mls @ 34.533 mls/hr IVCONT .Q15H1M [facility]; Protocol Last Admin: 07/02/21 08:02 Dose: Not Given Documented by: Fentanyl (Sublimaze/Ns) 1,000 mcg in 100 mls @ 0 mls/hr IVCONT .Q0M [facility]; Protocol Furosemide 200 mg/ Sodium (Chloride) 100 mls @ 5 mls/hr IVCONT .Q20H [facility] Last Admin: 07/02/21 10:04 Dose: 10 mg/hr, 5 mls/hr Documented by: Dextrose (D5w) 1,000 mls @ 80 mls/hr IVCONT .[id number] [facility] Last Admin: 07/02/21 06:46 Dose: 80 mls/hr Documented by: Insulin Human Lispro (Insulin Lispro 100 Unit/Ml 3 Ml Vial) 0 unit SUBCUT QIDACHS [facility]; Protocol Last Admin: 07/02/21 07:48 Dose: 4 unit Documented by: Metoprolol Tartrate (Metoprolol Tartrate 100 Mg Tablet) 100 mg PO BID [facility]; Protocol Last Admin: 07/02/21 07:47 Dose: 100 mg Documented by: Naloxone HCl (Naloxone Hcl 0.4 Mg/Ml Vial) 0.2 mg IVPUSH Q2M PRN PRN Reason: Excessive sedation or RR < 8 Nitroglycerin (Nitroglycerin 2 % Oint 1 Gm Packet) 0.5 inch TRANSDERMA RQ6H WH ILE AWAKE [facility] Last Admin: 07/02/21 07:48 Dose: 0.5 inch Documented by: Omeprazole (Omeprazole 20 Mg/10 Ml Susp.Recon) 40 mg PO BID@0630,1630 [facility] Last Admin: 07/02/21 06:41 Dose: 40 mg Documented by: Sodium Chloride (0.9 % Sodium Chloride Flush 3 Ml Syringe) 3 ml IVFLUSH QSHIFT [facility] Last Admin: 07/02/21 07:50 Dose: 3 ml Documented by: Time Spent With Patient Time: Total time spent is greater than 50% in coordination of care (as documented) at patient's floor/unit and/or counseling patient: Time with patient: 25 - 35 minutes Progress Note: Quality Stroke Does the patient have a stroke diagnosis?: No Procedures Date of Service Date of Service: 07/02/21
[2021-07-02] MEDS: Furosemide 200 MG in 0.9 % Sodium Chloride 80 ML 10 MG IVCONT ×2 (13:20→22:43)
[2021-07-02] MEDS: Potassium Chloride/H20 40 MEQ/100 ML PIGGYBACK 50 MEQ IV ×2 (13:38)
[2021-07-02] MEDS: Magnesium Sulfate/H2O 2 GM/50 ML PIGGYBACK IV (13:40)
--- NOTE | 2021-07-02 14:36 | MHC.CM.PN ---
Pt has been extubated - remains confused. STR referrals updated. CM to follow
[2021-07-02 16:25] LABS: Anion Gap 16 (12-20); Blood Urea Nitrogen 69 mg/dL (9-16); Calcium 8.4 mg/dL (8.4-10.2); Carbon Dioxide 29 mmol/L (22-29); Chloride 105 mmol/L (96-108); Creatinine Clr Calc Pharmacy 39.1; Estimated Glomerular Filt Rate 30; Glucose Random 240 mg/dL (60-115); Potassium 4.4 mmol/L (3.3-5.1); Sodium 146 mmol/L (135-145)
[2021-07-02 16:31] LABS: Glucose, Whole Blood 221 mg/dL (60-115)
[2021-07-02] MEDS: Amiodarone HCL 900 MG in 0.9 % Sodium Chloride 500 ML 17.27 MG IVCONT (17:02)
[2021-07-02 20:41] LABS: Procalcitonin 0.21 ng/mL
[2021-07-02 20:49] LABS: Glucose, Whole Blood 215 mg/dL (60-115)
[2021-07-02] MEDS: Chlorhexidine Gluc Oral Rinse 15 ML MOUTHWASH BUCCAL (20:55)
[2021-07-03] VITALS (28 sets, daily range): BP systolic 101–137; BP diastolic 33–72; PULSE 53–123; RESP 14–29; TEMP 36.2–37.2; O2SAT 91–98; BMI 35.9
--- NOTE | 2021-07-03 04:48 | PC.NURSE ---
CARE ASSUMED 23;15...AWAKE..CONVERSES...VAGUE RESPONSES AT TIMES...FORGETFUL...GENERALIZED WEAKNESS...AMIODARONE DRIP 0.5 MG/MIN...ESPINOSA DRAINING YELLOW URINE..MARGINAL EFFECT FROM LASIX DRIP...D5W 80 CC/HR...MONITOR NSR ...REVERTED TO ATRIAL FIB HR 110'S-120'S WITH INTERMITTANT BRIEF RUNS NSR...ICU PA PRESENT AND AWARE..PATIENT ASYMPTOMATIC...REVERTED BACK TO SUSTAINED NSR HR 60'S AFTER 1 1/2 HOURS...DENIES DISCOMFORT
[2021-07-03 05:20] LABS: VBG Base Excess 5.7 mmol/L; VBG HCO3 31 mmol/L (22-26); VBG pCO2 48 mmHg; VBG pH 7.41 (7.32-7.43); VBG pO2 39 mmHg
[2021-07-03] MEDS: Dextrose 5 % 1,000 ML 80 ML IVCONT (05:28)
[2021-07-03 05:31] LABS: Venous Blood Gas Refer to POC result
[2021-07-03 05:39] LABS: MANUAL DIFF FLAG NO
[2021-07-03 05:44] LABS: Basophils Absolute Auto 0.1 X10*3/uL (0.0-0.2); Basophils Percent Auto 0.3 % (0-2); Eosinophils Percent Auto 5.7 % (0-4); Hemoglobin 9.2 g/dl (14.0-18.0); Imm Gran Abs Auto 0.41 X10*3/uL (0.00-0.03); Imm Gran Pct Auto 2.2 % (0.0-0.4); Lymphocytes Absolute Auto 0.7 X10*3/uL (1.2-4.9); Mean Corpuscular HGB Conc 30.7 g/dl (31.0-36.0); Mean Corpuscular Hemoglobin 29.2 pg (27.0-33.0); Mean Corpuscular Volume 95.2 fL (80.0-98.0); Mean Platelet Volume 12.3 fL (9.4-12.4); Monocytes Percent Auto 5.3 % (2-11); NRBC Pct Auto 0.3 /100WBC (0.0-0.2); Neutrophils Absolute Auto 15.1 x10*3/uL (2.0-8.3); Neutrophils Percent Auto 82.5 % (45-73); Platelet Count 146 X10*3/uL (160-400); Red Blood Count 3.15 X10*6/uL (4.60-5.80); Red Cell Distribution Width 19.1 % (11.0-16.0); White Blood Count 18.3 X10*3/uL (4.8-10.8)
[2021-07-03 06:06] LABS: Alanine Aminotransferase < 6 U/L (0-40); Albumin Level 2.8 g/dL (3.5-5.0); Alkaline Phosphatase 68 U/L (39-117); Anion Gap 17 (12-20); Aspartate Amino Transferase 20 U/L (5-37); Bilirubin Total 0.8 mg/dL (0.0-1.0); Blood Urea Nitrogen 70 mg/dL (9-16); Calcium 8.2 mg/dL (8.4-10.2); Carbon Dioxide 29 mmol/L (22-29); Chloride 103 mmol/L (96-108); Estimated Glomerular Filt Rate 30; Glucose Random 230 mg/dL (60-115); Magnesium 2.2 mg/dL (1.6-2.6); Phosphorus 4.5 mg/dL (2.7-4.5); Potassium 3.7 mmol/L (3.3-5.1); Sodium 145 mmol/L (135-145); Total Protein 5.5 g/dL (6.5-8.0)
[2021-07-03 07:51] LABS: Glucose, Whole Blood 234 mg/dL (60-115)
[2021-07-03] MEDS: Metoprolol Tartrate 100 MG TABLET PO ×2 (08:48→21:03)
[2021-07-03] MEDS: Furosemide 200 MG in 0.9 % Sodium Chloride 80 ML 10 MG IVCONT (08:48)
[2021-07-03] MEDS: Nitroglycerin 2 % Oint 1 GM Packet 0.5 INCH TRANSDERMA ×3 (08:48→21:03)
[2021-07-03] MEDS: Chlorhexidine Gluc Oral Rinse 15 ML MOUTHWASH BUCCAL (08:49)
[2021-07-03] MEDS: Insulin Lispro 100 UNIT/ML 3 ML VIAL SUBCUT ×3 (08:49→16:44)
[2021-07-03] MEDS: Chlorothiazide Sodium 500 MG VIAL IVPUSH (08:50)
--- NOTE | 2021-07-03 09:26 | MHC.CLN ---
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
--- NOTE | 2021-07-03 10:06 | PM.PNCARD ---
Subjective Subjective Date of Service: 07/03/21 Principal diagnosis: CKD. CHF Interval history: Still appears short of breath although he states that he is feeling OK. Still on high flow O2. Review of Systems Review of Systems Yes all other systems are reviewed and are negative Cardiovascular: Reports as per HPI, Reports no additional cardiovascular complaints, Denies acrocyanosis, Denies cool extremities, Denies painful fingertips, Denies chest pain, Denies chest pain at rest, Denies diaphoresis, Denies syncope, Denies irregular heart rhythm, Denies claudication, Denies leg edema, Denies lightheadedness, Denies palpitations and Reports dyspnea Respiratory: Reports dyspnea Denies syncope Endocrine: Denies palpitations Physical Exam Vital Signs: Last Vital Signs Temp 97.1 F 07/03/21 08:00 Pulse 75 07/03/21 09:00 Resp 21 H 07/03/21 09:00 BP 108/54 L 07/03/21 09:00 Pulse Ox 95 07/03/21 09:00 Oxygen Flow Rate 30 07/01/21 07:54 BMI result Body Mass Index 35.9 Const General: ill appearing [facility] Other: Unremarkable Neck Neck: Yes normal visual inspection Chest Chest palpation & inspection: normal inspection of the chest Resp Other: diminished breath sounds; crackles. Cardio Palpation: normal PMI Heart sounds: S1 normal heart sound present, S2 normal heart sound present, no gallops, Murmur heart sound present and no rubs GI Palpation (GI): Soft to palpation Back/Spine/Pelvis Other: unremarkable Skin Lesions: other Neuro Cranial nerves: Yes Other cranial nerve findings present Extrem General: Yes other Psych Mental Status: other Objective Labs and Meds Result diagrams: 07/03/21 05:10 07/03/21 05:10 Lab results: Laboratory Results - last 24 hr 07/02/21 07/02/21 07/02/21 05:25 10:37 11:08 WBC RBC Hgb Hct MCV MCH MCHC RDW Plt Count MPV Immature Gran % (Auto) Neut % (Auto) Lymph % (Auto) [place] % (Auto) Eos % (Auto) Baso % (Auto) Lymph # (Auto) [place] # (Auto) Eos # (Auto) Baso # (Auto) Abs Immat Gran (auto) Absolute Neuts (auto) Absolute Nucleated RBC Nucleated RBC % (auto) VBG pH VBG pCO2 VBG pO2 VBG HCO3 VBG O2 Saturation VBG Base Excess Sodium Potassium Chloride Carbon Dioxide Anion Gap BUN Creatinine Estim Creat Clear Calc Estimated GFR POC Glucose 219 H Random Glucose Calcium Phosphorus 4.1 Magnesium 2.1 Total Bilirubin AST ALT Alkaline Phosphatase B-Natriuretic Peptide 2829 H Total Protein Albumin Procalcitonin 07/02/21 07/02/21 07/02/21 15:45 15:45 16:22 WBC RBC Hgb Hct MCV MCH MCHC RDW Plt Count MPV Immature Gran % (Auto) Neut % (Auto) Lymph % (Auto) [place] % (Auto) Eos % (Auto) Baso % (Auto) Lymph # (Auto) [place] # (Auto) Eos # (Auto) Baso # (Auto) Abs Immat Gran (auto) Absolute Neuts (auto) Absolute Nucleated RBC Nucleated RBC % (auto) VBG pH VBG pCO2 VBG pO2 VBG HCO3 VBG O2 Saturation VBG Base Excess Sodium 146 H Potassium 4.4 Chloride 105 Carbon Dioxide 29 Anion Gap 16 BUN 69 H Creatinine 2.16 H Estim Creat Clear Calc 39.1 Estimated GFR 30 POC Glucose 221 H Random Glucose 240 H Calcium 8.4 Phosphorus Magnesium Total Bilirubin AST ALT Alkaline Phosphatase B-Natriuretic Peptide Total Protein Albumin Procalcitonin 0.21 07/02/21 07/03/21 07/03/21 20:44 05:10 05:10 WBC 18.3 H RBC 3.15 L Hgb 9.2 L Hct 30.0 L MCV 95.2 MCH 29.2 MCHC 30.7 L RDW 19.1 H Plt Count 146 L MPV 12.3 Immature Gran % (Auto) 2.2 H Neut % (Auto) 82.5 H Lymph % (Auto) 4.0 L [place] % (Auto) 5.3 Eos % (Auto) 5.7 H Baso % (Auto) 0.3 Lymph # (Auto) 0.7 L [place] # (Auto) 1.0 Eos # (Auto) 1.0 H Baso # (Auto) 0.1 Abs Immat Gran (auto) 0.41 H Absolute Neuts (auto) 15.1 H Absolute Nucleated RBC 0.050 H Nucleated RBC % (auto) 0.3 H VBG pH VBG pCO2 VBG pO2 VBG HCO3 VBG O2 Saturation VBG Base Excess Sodium 145 Potassium 3.7 Chloride 103 Carbon Dioxide 29 Anion Gap 17 BUN 70 H Creatinine 2.13 H Estim Creat Clear Calc 40.0 Estimated GFR 30 POC Glucose 215 H Random Glucose 230 H Calcium 8.2 L Phosphorus 4.5 Magnesium 2.2 Total Bilirubin 0.8 AST 20 ALT < 6 Alkaline Phosphatase 68 B-Natriuretic Peptide Total Protein 5.5 L Albumin 2.8 L Procalcitonin 07/03/21 07/03/21 05:13 07:39 WBC RBC Hgb Hct MCV MCH MCHC RDW Plt Count MPV Immature Gran % (Auto) Neut % (Auto) Lymph % (Auto) [place] % (Auto) Eos % (Auto) Baso % (Auto) Lymph # (Auto) [place] # (Auto) Eos # (Auto) Baso # (Auto) Abs Immat Gran (auto) Absolute Neuts (auto) Absolute Nucleated RBC Nucleated RBC % (auto) VBG pH 7.41 VBG pCO2 48 VBG pO2 39 VBG HCO3 31 H VBG O2 Saturation 69.0 VBG Base Excess 5.7 Sodium Potassium Chloride Carbon Dioxide Anion Gap BUN Creatinine Estim Creat Clear Calc Estimated GFR POC Glucose 234 H Random Glucose Calcium Phosphorus Magnesium Total Bilirubin AST ALT Alkaline Phosphatase B-Natriuretic Peptide Total Protein Albumin Procalcitonin Imaging Radiologist's impression: Impressions Chest X-Ray 07/02/21 10:09 IMPRESSION: Endotracheal tube and enteric tube have been removed. Bilateral patchy airspace opacities are stable and unchanged. Progress Note: A&P Assessment and plan (1) Acute respiratory distress syndrome (ARDS) due to COVID-19 virus: Status: Acute (2) Acute respiratory failure: Status: Acute (3) Atrial fibrillation with rapid ventricular response: Status: Acute (4) Acute heart failure: Status: Acute Plan On telemetry, he is in and out of atrial fibrillation/flutter with rapid rate. Currently rate about 110-120 but he has briefly converting to sinus rhythm. Continue amiodarone drip. If able, anticoagulation if GI bleeding issues resolved. On empiric diuretics for possibly heart failure although difficult to say; could be rather ARDS related to COVID. There is also question of possible aortic valve vegetation. Initial blood cultures are positive for Staphylococcus aureus but repeat studies have been negative. With regard to performing a CHRIS, he is on high-flow oxygen and hence this will be an issue. Will likely need to be intubated if CHRIS is necessary. Discussed with Dr. Blankenship. Fall Risk Details Current Medications: Current Medications Chlorhexidine Gluconate (Chlorhexidine Gluc Oral Rinse 15 Ml Mouthwash) 15 ml BUCCAL BID [facility] Last Admin: 07/03/21 08:49 Dose: 15 ml Documented by: Chlorothiazide Sodium (Chlorothiazide Sodium 500 Mg Vial) 500 mg IVPUSH DAILY [facility]; Protocol Last Admin: 07/03/21 08:50 Dose: 500 mg Documented by: Fentanyl (Fentanyl Citrate/Pf 100 Mcg/2 Ml Vial) 50 mcg IVPUSH Q5M PRN; Protocol PRN Reason: WOB Last Admin: 07/02/21 11:31 Dose: 50 mcg Documented by: Fentanyl (Fentanyl Citrate/Pf 100 Mcg/2 Ml Vial) 100 mcg IVPUSH Q5M PRN; Protocol PRN Reason: SEVER WOB Last Admin: 06/30/21 17:21 Dose: 100 mcg Documented by: Finasteride (Finasteride 5 Mg Tablet) 5 mg PO DAILY [facility] Last Admin: 06/30/21 09:05 Dose: 5 mg Documented by: Heparin Sodium (Porcine) (Heparin Sodium,Porcine 5,000 Unit/Ml Vial) 4,800 unit 40 unit/kg (4800 unit) IVPUSH PROTOCOL BOLUS PRN; Protocol PRN Reason: 40 unit/kg - Heparin Protocol Last Admin: 06/30/21 09:30 Dose: 4,800 unit Documented by: Heparin Sodium (Porcine) (Heparin Sodium,Porcine 5,000 Unit/Ml Vial) 9,500 unit 80 unit/kg (9500 unit) IVPUSH PROTOCOL BOLUS PRN; Protocol PRN Reason: 80 unit/kg - Heparin Protocol Hydromorphone HCl (Hydromorphone Hcl 1 Mg/Ml Syringe) 0.5 mg IVPUSH Q10M PRN; Protocol PRN Reason: WOB Last Admin: 07/02/21 09:37 Dose: 0.5 mg Documented by: Propofol (Diprivan) 1,000 mg in 100 mls @ 0 mls/hr IVCONT .Q0M [facility]; Protocol Last Titration: 07/01/21 13:58 Dose: Infused Documented by: Norepinephrine Bitartrate (Levophed) 8 mg in 250 mls @ 0 mls/hr IVCONT .Q0M [facility]; Protocol Last Titration: 07/01/21 13:04 Dose: 0 mcg/kg/min, 0 mls/hr Documented by: Heparin Sodium/Sodium Chloride () 25,000 unit in 250 mls @ 0 mls/hr IVCONT .Q0M [facility]; Protocol Last Titration: 07/01/21 07:13 Dose: Infused Documented by: Esmolol HCl (Brevibloc/Nacl) 2,500 mg in 250 mls @ 0 mls/hr IVCONT .Q0M [facility]; Protocol Last Titration: 07/01/21 21:15 Dose: 0 mcg/kg/min, 0 mls/hr Documented by: Amiodarone HCl 900 mg/ Sodium (Chloride) 518 mls @ 34.533 mls/hr IVCONT .Q15H1M [facility]; Protocol Last Admin: 07/02/21 17:02 Dose: 0.5 mg/min, 17.27 mls/hr Documented by: Fentanyl (Sublimaze/Ns) 1,000 mcg in 100 mls @ 0 mls/hr IVCONT .Q0M [facility]; Protocol Dextrose (D5w) 1,000 mls @ 80 mls/hr IVCONT .[id number] [facility] Last Admin: 07/03/21 05:28 Dose: 80 mls/hr Documented by: Furosemide 200 mg/ Sodium (Chloride) 100 mls @ 10 mls/hr IVCONT .Q10H [facility] Last Admin: 07/03/21 08:48 Dose: 20 mg/hr, 10 mls/hr Documented by: Insulin Human Lispro (Insulin Lispro 100 Unit/Ml 3 Ml Vial) 0 unit SUBCUT QIDACHS [facility]; Protocol Last Admin: 07/03/21 08:49 Dose: 4 unit Documented by: Metoprolol Tartrate (Metoprolol Tartrate 100 Mg Tablet) 100 mg PO BID [facility]; Protocol Last Admin: 07/03/21 08:48 Dose: 100 mg Documented by: Naloxone HCl (Naloxone Hcl 0.4 Mg/Ml Vial) 0.2 mg IVPUSH Q2M PRN PRN Reason: Excessive sedation or RR < 8 Nitroglycerin (Nitroglycerin 2 % Oint 1 Gm Packet) 0.5 inch TRANSDERMA RQ6H WHILE AWAKE [facility] Last Admin: 07/03/21 08:48 Dose: 0.5 inch Documented by: Omeprazole (Omeprazole 20 Mg/10 Ml Susp.Recon) 40 mg PO BID@0630,1630 [facility] Last Admin: 07/03/21 05:49 Dose: 40 mg Documented by: Sodium Chloride (0.9 % Sodium Chloride Flush 3 Ml Syringe) 3 ml IVFLUSH QSHIFT [facility] Last Admin: 07/03/21 08:47 Dose: Not Given Documented by: Time Spent With Patient Time: Total time spent is greater than 50% in coordination of care (as documented) at patient's floor/unit and/or counseling patient: Time with patient: less than 15 minutes Progress Note: Quality Stroke Does the patient have a stroke diagnosis?: No Procedures Date of Service Date of Service: 07/03/21
--- NOTE | 2021-07-03 11:18 | P.PNNP_ITS ---
Subjective Subjective Date of Service: 07/03/21 Principal diagnosis: CKD. CHF Interval history: Events noted. All recent data reviewed. D/W ICU Attending Physical Exam Verdana 4l Vital Signs: Verdana 4d Verdana 4d Vital Signs: Verdana 4d Verdana 4Bd Last Vital Signs Verdana 4d Oxygen Therapist New 4d Oxygen Therapist New 4d Temp 97.1 F 07/03/21 08:00 Oxygen Therapist New 4d Pulse 103 H 07/03/21 11:00 Oxygen Therapist New 4d Resp 26 H 07/03/21 11:00 BP 120/51 L 07/03/21 11:00 Pulse Ox 97 07/03/21 11:00 Oxygen Flow Rate 45 07/03/21 10:00 BMI result Body Mass Index 35.9 Const: Other: On high flow O2 Eyes: EOM: EOMs intact bilaterally Resp: Auscultation: diminished lung sounds Cardio: Rate: regular rate GI: Palpation (GI): Soft to palpation Neuro: General: moves all extremities Objective Data Labs CBC & Chem 7: 07/03/21 05:10 07/03/21 05:10 Labs: Laboratory Results - last 24 hr 07/02/21 07/02/21 07/02/21 15:45 15:45 16:22 WBC RBC Hgb Hct MCV MCH MCHC RDW Plt Count MPV Immature Gran % (Auto) Neut % (Auto) Lymph % (Auto) [place] % (Auto) Eos % (Auto) Baso % (Auto) Lymph # (Auto) [place] # (Auto) Eos # (Auto) Baso # (Auto) Abs Immat Gran (auto) Absolute Neuts (auto) Absolute Nucleated RBC Nucleated RBC % (auto) VBG pH VBG pCO2 VBG pO2 VBG HCO3 VBG O2 Saturation VBG Base Excess Sodium 146 H Potassium 4.4 Chloride 105 Carbon Dioxide 29 Anion Gap 16 BUN 69 H Creatinine 2.16 H Estim Creat Clear Calc 39.1 Estimated GFR 30 POC Glucose 221 H Random Glucose 240 H Calcium 8.4 Phosphorus Magnesium Total Bilirubin AST ALT Alkaline Phosphatase Total Protein Albumin Procalcitonin 0.21 07/02/21 07/03/21 07/03/21 20:44 05:10 05:10 WBC 18.3 H RBC 3.15 L Hgb 9.2 L Hct 30.0 L MCV 95.2 MCH 29.2 MCHC 30.7 L RDW 19.1 H Plt Count 146 L MPV 12.3 Immature Gran % (Auto) 2.2 H Neut % (Auto) 82.5 H Lymph % (Auto) 4.0 L [place] % (Auto) 5.3 Eos % (Auto) 5.7 H Baso % (Auto) 0.3 Lymph # (Auto) 0.7 L [place] # (Auto) 1.0 Eos # (Auto) 1.0 H Baso # (Auto) 0.1 Abs Immat Gran (auto) 0.41 H Absolute Neuts (auto) 15.1 H Absolute Nucleated RBC 0.050 H Nucleated RBC % (auto) 0.3 H VBG pH VBG pCO2 VBG pO2 VBG HCO3 VBG O2 Saturation VBG Base Excess Sodium 145 Potassium 3.7 Chloride 103 Carbon Dioxide 29 Anion Gap 17 BUN 70 H Creatinine 2.13 H Estim Creat Clear Calc 40.0 Estimated GFR 30 POC Glucose 215 H Random Glucose 230 H Calcium 8.2 L Phosphorus 4.5 Magnesium 2.2 Total Bilirubin 0.8 AST 20 ALT < 6 Alkaline Phosphatase 68 Total Protein 5.5 L Albumin 2.8 L Procalcitonin 07/03/21 07/03/21 05:13 07:39 WBC RBC Hgb Hct MCV MCH MCHC RDW Plt Count MPV Immature Gran % (Auto) Neut % (Auto) Lymph % (Auto) [place] % (Auto) Eos % (Auto) Baso % (Auto) Lymph # (Auto) [place] # (Auto) Eos # (Auto) Baso # (Auto) Abs Immat Gran (auto) Absolute Neuts (auto) Absolute Nucleated RBC Nucleated RBC % (auto) VBG pH 7.41 VBG pCO2 48 VBG pO2 39 VBG HCO3 31 H VBG O2 Saturation 69.0 VBG Base Excess 5.7 Sodium Potassium Chloride Carbon Dioxide Anion Gap BUN Creatinine Estim Creat Clear Calc Estimated GFR POC Glucose 234 H Random Glucose Calcium Phosphorus Magnesium Total Bilirubin AST ALT Alkaline Phosphatase Total Protein Albumin Procalcitonin Microbiology Microbiology Results: Microbiology 06/30/21 02:16 Sputum - Suctioned Gram Stain - Final 06/30/21 02:16 Sputum - Suctioned Sputum Culture - Final 06/29/21 15:20 Blood - Venous Blood Culture - Preliminary No growth after 48 hours. 06/29/21 15:20 Blood - Venous Blood Culture - Preliminary No growth after 48 hours. 06/29/21 20:32 Urine Catheterized - Villa Catheter Urine Culture - Final No growth. 06/19/21 14:54 Blood - Venous Blood Culture - Final No growth after 5 days. 06/19/21 14:55 Blood - Venous Blood Culture - Final No growth after 5 days. 06/09/21 17:15 Blood - Venous Blood Culture - Final Staphylococcus aureus 06/09/21 17:10 Blood - Venous Blood Culture - Final Staphylococcus aureus 06/08/21 23:11 Blood - Venous Blood Culture - Final Staphylococcus aureus 06/08/21 23:11 Blood - Venous Blood Culture - Final Staphylococcus aureus Procedures Date of Service Date of Service: 07/03/21 Assessment & Plan Assessment and plan (1) Acute renal failure: Status: Acute Assessment and Plan: Acute Kidney Injury due to tubular injury Renal functions fairly stable Continue diuresis/ rest of current supportive care Shall closely follow up Time Spent With Patient Time: Total time spent is greater than 50% in coordination of care (as documented) at patient's floor/unit and/or counseling patient: Progress Note: Quality Stroke Does the patient have a stroke diagnosis?: No
[2021-07-03 11:57] LABS: Glucose, Whole Blood 233 mg/dL (60-115)
--- NOTE | 2021-07-03 13:29 | MHC.SL.SWA ---
Speech Pathologist Impression: Risk of Aspiration Risk of Aspiration Due to: Hx of Recent Extubation Dysphasia Diet Status: Yes Liquid Consistency and Strategies for Safe Swallow: Liquid Intake Recommendation: Marissa Thick Liquid Intake Strategies: Small Sips No Straws Solid Food Consistency: Dietary Recommendations: Pureed (NDD1) Additional Modifications to Solid Foods: Recommend PUREED (NDD1) solids and NECTAR THICK liquids with pills CRUSHED in PUREE. Patient requires total 1:1 assistance feeding. Recommend aspiration precautions and daily oral care. [place] message sent to , RD, RN. PHP LAMP DEVELOPER will continue to follow. Oral Medication Intake: Crushed with Puree Compensatory Strategies and Precautions to be Taken for Safe Swallow: Sitting Upright (90 deg) No Straw Small Bites and Sips Rate of Ingestion Change Oral Check Supervision While Eating and Drinking for Safe Swallow: Total Assistance Swallowing Recommended Treatments: Compens. Strategy Educat. Recommendation for Speech: Inpatient Speech Therapy Snow Plow Operator Clinican/Clinical Fellow: No Supervisory Statement: I have reviewed and agree with the student/clinical fellow's documentation: N/A Speech Language Pathologist: Evie Cedeño M.A., CCC-PHP LAMP DEVELOPER
[2021-07-03 16:15] LABS: OBS Int Ctl Valid YES; OBS1 NEGATIVE (NEGATIVE)
--- NOTE | 2021-07-03 16:19 | MHC.CM.PN ---
Patient remains in ICU. Currently on high flow oxygen. Extubated 07/01. Anticipate STR will be needed. Patient received 3 Moderna vaccines. Copy of HCP verified to be on file. Continue to monitor for d/c needs.
[2021-07-03 16:31] LABS: Glucose, Whole Blood 162 mg/dL (60-115)
--- NOTE | 2021-07-03 17:10 | PM.CCPN ---
Subjective Subjective Date of Service: 07/03/21 Interval History: 76-year-old male who is moderately obese presented as a COVID-19 positive but without hypoxia initially developed upper GI bleed from duodenal ulceration treated endoscopically and then subsequently developed acute hypoxemic respiratory failure with possible dual contribution coming from COVID-19 pneumonia and progressive ARDS as well as acute on chronic diastolic CHF and my bedside echo I noticed some very suspicious thickening of 1 cuspid the aortic valve with at least mild or potentially 1 to 2+ aortic insufficiency globally normal systolic wall motion but not as hyperdynamic as you might expect given his persistent rapid atrial fibrillation and superimposed aortic insufficiency raising suspicion for possible diminished systolic reserve of his ventricle as well clearly hypertrophic probably based on chronic hypertensive disease he still remains ventilator dependent with significant minute ventilatory requirement as well as increased FiO2 requirement and did currently being aggressively diuresed which I agree with but clearly needs a transesophageal echo especially given his 4/4 blood culture positivity for methicillin sensitive Staph aureus. Critical Care Time (minutes): 60 Physical Exam Vital Signs: Vital Signs: Last Vital Signs Temp 97.4 F 07/03/21 15:18 Pulse 70 07/03/21 17:00 Resp 29 H 07/03/21 17:00 BP 114/45 L 07/03/21 17:00 Pulse Ox 96 07/03/21 17:00 Oxygen Flow Rate 45 07/03/21 10:00 BMI result Body Mass Index 35.9 Sedated and intubated but on reduction of his sedation moves all 4 extremities and he does awaken bedside echo definition of cardiac function elevated CVP probably due to these combined entities but will follow CVP to determine when to stop aggressive diuresis lungs with some increased accessory muscle effort and prolonged diaphragmatic expiratory effort skin intact with no breakdown no acrocyanosis abdomen benign with no palpable organomegaly Objective Data Labs CBC & Chem 7: 07/06/21 05:20 07/06/21 05:20 Labs: Laboratory Results - last 24 hr 07/02/21 07/02/21 07/03/21 15:45 20:44 05:10 WBC 18.3 H RBC 3.15 L Hgb 9.2 L Hct 30.0 L MCV 95.2 MCH 29.2 MCHC 30.7 L RDW 19.1 H Plt Count 146 L MPV 12.3 Immature Gran % (Auto) 2.2 H Neut % (Auto) 82.5 H Lymph % (Auto) 4.0 L [place] % (Auto) 5.3 Eos % (Auto) 5.7 H Baso % (Auto) 0.3 Lymph # (Auto) 0.7 L [place] # (Auto) 1.0 Eos # (Auto) 1.0 H Baso # (Auto) 0.1 Abs Immat Gran (auto) 0.41 H Absolute Neuts (auto) 15.1 H Absolute Nucleated RBC 0.050 H Nucleated RBC % (auto) 0.3 H VBG pH VBG pCO2 VBG pO2 VBG HCO3 VBG O2 Saturation VBG Base Excess Sodium Potassium Chloride Carbon Dioxide Anion Gap BUN Creatinine Estim Creat Clear Calc Estimated GFR POC Glucose 215 H Random Glucose Calcium Phosphorus Magnesium Total Bilirubin AST ALT Alkaline Phosphatase Total Protein Albumin Procalcitonin 0.21 Stool Occult Blood 07/03/21 07/03/21 07/03/21 05:10 05:13 07:39 WBC RBC Hgb Hct MCV MCH MCHC RDW Plt Count MPV Immature Gran % (Auto) Neut % (Auto) Lymph % (Auto) [place] % (Auto) Eos % (Auto) Baso % (Auto) Lymph # (Auto) [place] # (Auto) Eos # (Auto) Baso # (Auto) Abs Immat Gran (auto) Absolute Neuts (auto) Absolute Nucleated RBC Nucleated RBC % (auto) VBG pH 7.41 VBG pCO2 48 VBG pO2 39 VBG HCO3 31 H VBG O2 Saturation 69.0 VBG Base Excess 5.7 Sodium 145 Potassium 3.7 Chloride 103 Carbon Dioxide 29 Anion Gap 17 BUN 70 H Creatinine 2.13 H Estim Creat Clear Calc 40.0 Estimated GFR 30 POC Glucose 234 H Random Glucose 230 H Calcium 8.2 L Phosphorus 4.5 Magnesium 2.2 Total Bilirubin 0.8 AST 20 ALT < 6 Alkaline Phosphatase 68 Total Protein 5.5 L Albumin 2.8 L Procalcitonin Stool Occult Blood 07/03/21 07/03/21 07/03/21 11:43 15:11 16:18 WBC RBC Hgb Hct MCV MCH MCHC RDW Plt Count MPV Immature Gran % (Auto) Neut % (Auto) Lymph % (Auto) [place] % (Auto) Eos % (Auto) Baso % (Auto) Lymph # (Auto) [place] # (Auto) Eos # (Auto) Baso # (Auto) Abs Immat Gran (auto) Absolute Neuts (auto) Absolute Nucleated RBC Nucleated RBC % (auto) VBG pH VBG pCO2 VBG pO2 VBG HCO3 VBG O2 Saturation VBG Base Excess Sodium Potassium Chloride Carbon Dioxide Anion Gap BUN Creatinine Estim Creat Clear Calc Estimated GFR POC Glucose 233 H 162 H Random Glucose Calcium Phosphorus Magnesium Total Bilirubin AST ALT Alkaline Phosphatase Total Protein Albumin Procalcitonin Stool Occult Blood NEGATIVE Microbiology Microbiology Results: Microbiology 06/30/21 02:16 Sputum - Suctioned Gram Stain - Final 06/30/21 02:16 Sputum - Suctioned Sputum Culture - Final 06/29/21 15:20 Blood - Venous Blood Culture - Preliminary No growth after 48 hours. 06/29/21 15:20 Blood - Venous Blood Culture - Preliminary No growth after 48 hours. 06/29/21 20:32 Urine Catheterized - Villa Catheter Urine Culture - Final No growth. 06/19/21 14:54 Blood - Venous Blood Culture - Final No growth after 5 days. 06/19/21 14:55 Blood - Venous Blood Culture - Final No growth after 5 days. 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 (2) Non-rheumatic aortic regurgitation: Status: Acute (3) Pleural effusion: Status: Acute (4) Acute respiratory failure: Status: Acute (5) Persistent atrial fibrillation: Status: Acute (6) Acute heart failure: Status: Acute (7) Heart failure with preserved ejection fraction: Status: Acute (8) Paroxysmal A-fib: Status: Acute (9) Elevated brain natriuretic peptide (BNP) level: Status: Acute (10) Diabetes: Status: Acute (11) Acute respiratory distress syndrome (ARDS) due to COVID-19 virus: Status: Acute (12) Morbid obesity: Status: Acute (13) Thrombocytopenia associated with severe acute respiratory syndrome coronavirus 2 (SARS-CoV-2) infection: Status: Acute (14) Acute hypoxemic respiratory failure: Status: Acute (15) Acute non-ST elevation myocardial infarction (NSTEMI): Status: Acute (16) GI bleed: Status: Acute (17) Hypotension: Status: Acute (18) Bacteremia due to Gram-positive bacteria: Status: Acute (19) Atrial fibrillation with rapid ventricular response: Status: Acute (20) Acute renal failure: Status: Acute (21) COVID-19: Status: Acute (22) Weakness: Status: Acute (23) Nocturia associated with benign prostatic hyperplasia: Status: Acute (24) BPH w urinary obs/LUTS: Status: Acute (25) Elevated prostate specific antigen [PSA]: Status: Acute Plan so at this point will continue to gov diuresis by central venous pressure measurement and hopefully proceed with transesophageal echo document presence of possible vegetation and real estate listing consultant by size the necessity for transfer to CT surgical program in a tertiary center the whole backs here are the active COVID-19 status but nonetheless we need to seek transesophageal echo documentation continued ventilatory support and I inotropic support as deemed necessary by hemodynamics anti staphylococcal antibiotic therapy Quality Stroke Does the patient have a stroke diagnosis?: No VTE Prior VTE?: No VTE Risk Level:: Medical - moderate - high VTE Device Contraindication: Treatment Not Indicated VTE Drug Contraindication: Treatment Not Indicated
[2021-07-03 20:55] LABS: Glucose, Whole Blood 145 mg/dL (60-115)
[2021-07-03] MEDS: Amiodarone HCL 900 MG in 0.9 % Sodium Chloride 500 ML 17.27 MG IVCONT (21:04)
--- NOTE | 2021-07-03 22:47 | PM.IDPN ---
Subjective Subjective Date of Service: 07/03/21 Critical Care Time (minutes): 15 Comment: He has no complaints Objective Data Labs CBC & Chem 7: 07/06/21 05:20 07/06/21 05:20 Labs: Laboratory Results - last 24 hr 07/03/21 07/03/21 07/03/21 05:10 05:10 05:13 WBC 18.3 H RBC 3.15 L Hgb 9.2 L Hct 30.0 L MCV 95.2 MCH 29.2 MCHC 30.7 L RDW 19.1 H Plt Count 146 L MPV 12.3 Immature Gran % (Auto) 2.2 H Neut % (Auto) 82.5 H Lymph % (Auto) 4.0 L [place] % (Auto) 5.3 Eos % (Auto) 5.7 H Baso % (Auto) 0.3 Lymph # (Auto) 0.7 L [place] # (Auto) 1.0 Eos # (Auto) 1.0 H Baso # (Auto) 0.1 Abs Immat Gran (auto) 0.41 H Absolute Neuts (auto) 15.1 H Absolute Nucleated RBC 0.050 H Nucleated RBC % (auto) 0.3 H VBG pH 7.41 VBG pCO2 48 VBG pO2 39 VBG HCO3 31 H VBG O2 Saturation 69.0 VBG Base Excess 5.7 Sodium 145 Potassium 3.7 Chloride 103 Carbon Dioxide 29 Anion Gap 17 BUN 70 H Creatinine 2.13 H Estim Creat Clear Calc 40.0 Estimated GFR 30 POC Glucose Random Glucose 230 H Calcium 8.2 L Phosphorus 4.5 Magnesium 2.2 Total Bilirubin 0.8 AST 20 ALT < 6 Alkaline Phosphatase 68 Total Protein 5.5 L Albumin 2.8 L Stool Occult Blood 07/03/21 07/03/21 07/03/21 07:39 11:43 15:11 WBC RBC Hgb Hct MCV MCH MCHC RDW Plt Count MPV Immature Gran % (Auto) Neut % (Auto) Lymph % (Auto) [place] % (Auto) Eos % (Auto) Baso % (Auto) Lymph # (Auto) [place] # (Auto) Eos # (Auto) Baso # (Auto) Abs Immat Gran (auto) Absolute Neuts (auto) Absolute Nucleated RBC Nucleated RBC % (auto) VBG pH VBG pCO2 VBG pO2 VBG HCO3 VBG O2 Saturation VBG Base Excess Sodium Potassium Chloride Carbon Dioxide Anion Gap BUN Creatinine Estim Creat Clear Calc Estimated GFR POC Glucose 234 H 233 H Random Glucose Calcium Phosphorus Magnesium Total Bilirubin AST ALT Alkaline Phosphatase Total Protein Albumin Stool Occult Blood NEGATIVE 07/03/21 07/03/21 16:18 20:51 WBC RBC Hgb Hct MCV MCH MCHC RDW Plt Count MPV Immature Gran % (Auto) Neut % (Auto) Lymph % (Auto) [place] % (Auto) Eos % (Auto) Baso % (Auto) Lymph # (Auto) [place] # (Auto) Eos # (Auto) Baso # (Auto) Abs Immat Gran (auto) Absolute Neuts (auto) Absolute Nucleated RBC Nucleated RBC % (auto) VBG pH VBG pCO2 VBG pO2 VBG HCO3 VBG O2 Saturation VBG Base Excess Sodium Potassium Chloride Carbon Dioxide Anion Gap BUN Creatinine Estim Creat Clear Calc Estimated GFR POC Glucose 162 H 145 H Random Glucose Calcium Phosphorus Magnesium Total Bilirubin AST ALT Alkaline Phosphatase Total Protein Albumin Stool Occult Blood Microbiology Microbiology Results: Microbiology 06/30/21 02:16 Sputum - Suctioned Gram Stain - Final 06/30/21 02:16 Sputum - Suctioned Sputum Culture - Final 06/29/21 15:20 Blood - Venous Blood Culture - Preliminary No growth after 48 hours. 06/29/21 15:20 Blood - Venous Blood Culture - Preliminary No growth after 48 hours. 06/29/21 20:32 Urine Catheterized - Villa Catheter Urine Culture - Final No growth. 06/19/21 14:54 Blood - Venous Blood Culture - Final No growth after 5 days. 06/19/21 14:55 Blood - Venous Blood Culture - Final No growth after 5 days. 06/09/21 17:15 Blood - Venous Blood Culture - Final Staphylococcus aureus 06/09/21 17:10 Blood - Venous Blood Culture - Final Staphylococcus aureus 06/08/21 23:11 Blood - Venous Blood Culture - Final Staphylococcus aureus 06/08/21 23:11 Blood - Venous Blood Culture - Final Staphylococcus aureus Physical Exam Vital Signs: Vital Signs: Last Vital Signs Temp 98.3 F 07/03/21 20:00 Pulse 66 07/03/21 21:00 Resp 22 H 07/03/21 21:00 BP 118/46 L 07/03/21 21:00 Pulse Ox 98 07/03/21 21:00 Oxygen Flow Rate 45 07/03/21 10:00 BMI result Body Mass Index 35.9 Const: General: cooperative Eyes: General: appearance normal, both eyes and all related structures Pupils: Equal, round and reactive pupils present Resp: Effort & Inspection: normal respiratory effort Cardio: Rate: regular rate Rhythm: regular rhythm GI: Palpation (GI): Soft to palpation and nontender Skin: General skin exam: no rashes or lesions noted Neuro: Cranial nerves: Yes Equal, round and reactive pupils present Assessment and Plan Assessment and plan (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
[2021-07-04] VITALS (16 sets, daily range): BP systolic 127–158; BP diastolic 50–65; PULSE 64–125; RESP 17–23; TEMP 36.1–36.9; O2SAT 91–98; BMI 34.8
[2021-07-04 08:17] LABS: Glucose, Whole Blood 206 mg/dL (60-115)
--- NOTE | 2021-07-04 09:46 | P.PNNP_ITS ---
Subjective Subjective Date of Service: 07/04/21 Principal diagnosis: CKD. CHF Interval history: Events noted. All recent data reviewed. 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 4d Family Day Care Worker New 4d Temp 97.5 F 07/04/21 07:21 Family Day Care Worker New 4d Pulse 68 07/04/21 09:11 Family Day Care Worker New 4d Resp 20 07/04/21 07:41 BP 127/50 L 07/04/21 09:11 Pulse Ox 92 07/04/21 09:11 Oxygen Flow Rate 45 07/03/21 10:00 BMI result Body Mass Index 34.8 Const: General: no acute distress Eyes: EOM: EOMs intact bilaterally Resp: Auscultation: diminished lung sounds Cardio: Rate: regular rate GI: Palpation (GI): Soft to palpation Neuro: General: moves all extremities Objective Data Labs CBC & Chem 7: 07/03/21 05:10 07/03/21 05:10 Labs: Laboratory Results - last 24 hr 07/03/21 07/03/21 07/03/21 11:43 15:11 16:18 POC Glucose 233 H 162 H Stool Occult Blood NEGATIVE 07/03/21 07/04/21 20:51 08:11 POC Glucose 145 H 206 H Stool Occult Blood Microbiology Microbiology Results: Microbiology 06/30/21 02:16 Sputum - Suctioned Gram Stain - Final 06/30/21 02:16 Sputum - Suctioned Sputum Culture - Final 06/29/21 15:20 Blood - Venous Blood Culture - Preliminary No growth after 48 hours. 06/29/21 15:20 Blood - Venous Blood Culture - Preliminary No growth after 48 hours. 06/29/21 20:32 Urine Catheterized - Villa Catheter Urine Culture - Final No growth. 06/19/21 14:54 Blood - Venous Blood Culture - Final No growth after 5 days. 06/19/21 14:55 Blood - Venous Blood Culture - Final No growth after 5 days. 06/09/21 17:15 Blood - Venous Blood Culture - Final Staphylococcus aureus 06/09/21 17:10 Blood - Venous Blood Culture - Final Staphylococcus aureus 06/08/21 23:11 Blood - Venous Blood Culture - Final Staphylococcus aureus 06/08/21 23:11 Blood - Venous Blood Culture - Final Staphylococcus aureus Procedures Date of Service Date of Service: 07/04/21 Assessment & Plan Assessment and plan (1) Acute renal failure: Status: Acute Assessment and Plan: Acute Kidney Injury due to tubular injury Renal functions had been fairly stable Continue current supportive care Labs pending; Shall closely follow up Time Spent With Patient Time: Total time spent is greater than 50% in coordination of care (as documented) at patient's floor/unit and/or counseling patient: Progress Note: Quality Stroke Does the patient have a stroke diagnosis?: No
--- NOTE | 2021-07-04 09:50 | P.PNCA_ITS ---
Subjective Subjective Date of Service: 07/04/21 Principal diagnosis: CKD. CHF Interval history: Seems very weak and can barely stand and needed 3 people to assist in tranfer. However, denies any acute cardiac complaints like angina. Shortness of breath at baseline. Review of Systems Review of Systems Yes all other systems are reviewed and are negative Cardiovascular: Reports as per HPI, Reports no additional cardiovascular complaints, Denies acrocyanosis, Denies cool extremities, Denies painful fingertips, Denies chest pain, Denies chest pain at rest, Denies diaphoresis, Denies syncope, Denies irregular heart rhythm, Denies claudication, Denies leg edema, Denies lightheadedness, Denies palpitations and Reports dyspnea Respiratory: Reports dyspnea Denies syncope Endocrine: Denies palpitations Physical Exam Vital Signs: Last Vital Signs Temp 97.5 F 07/04/21 07:21 Pulse 68 07/04/21 09:11 Resp 20 07/04/21 07:41 BP 127/50 L 07/04/21 09:11 Pulse Ox 92 07/04/21 09:11 Verdana 4 Oxygen Flow Verdana 4 45 Verdana 4 07/03/21 Rate Verdana 4 10:00 Verdana 4 Verdana 4 BMI result Verdana 4 Body Mass Index Verdana 4 34.8 Verdana 4 Verdana 4 Const General: ill appearing HENFL Other: Unremarkable Neck Neck: Yes normal visual inspection Chest Chest palpation & inspection: normal inspection of the chest Resp Other: diminished breath sounds; crackles. Cardio Palpation: normal PMI Heart sounds: S1 normal heart sound present, S2 normal heart sound present, no g allops, Murmur heart sound present and no rubs GI Palpation (GI): Soft to palpation Back/Spine/Pelvis Other: unremarkable Skin Lesions: other Neuro Cranial nerves: Yes Other cranial nerve findings present Extrem General: Yes other Psych Mental Status: other Objective Labs and Meds Result diagrams: 07/03/21 05:10 07/03/21 05:10 Lab results: Laboratory Results - last 24 hr 07/03/21 07/03/21 07/03/21 11:43 15:11 16:18 POC Glucose 233 H 162 H Stool Occult Blood NEGATIVE 07/03/21 07/04/21 20:51 08:11 POC Glucose 145 H 206 H Stool Occult Blood Progress Note: A&P Assessment and plan (1) Acute respiratory distress syndrome (ARDS) due to COVID-19 virus: Status: Acute (2) Acute respiratory failure: Status: Acute (3) Atrial fibrillation with rapid ventricular response: Status: Acute Plan On telemetry, he is in sinus rhythm in 70s. Can use oral Amiodarone 400mg bid and keep in sinus. When able, oral anticoagulation. Respiratory distress more likely from COVID/ARDS and less likely from CHF. Last LVEF 60-65% and only mild diastolic dysfunction. There is also question of possible aortic valve vegetation. Initial blood cul tures are positive for Staphylococcus aureus but repeat studies have been negative. There was a question of transesophageal echocardiogram but based on his clinical condition, does not seem suitable. He still on a lot of oxygen and also extremely weak and can barely move even with 3 people. Also not clear if that will foreign exchange dealer or not. If necessary and is to be performed, then he may need to be intubated again which isn't preferable either. Hence, probably just empiric antibiotics. Fall Risk Details Current Medications: Current Medications Finasteride (Finasteride 5 Mg Tablet) 5 mg PO DAILY [facility] Last Admin: 06/30/21 09:05 Dose: 5 mg Documented by: Heparin Sodium (Porcine) (Heparin Sodium,Porcine 5,000 Unit/Ml Vial) 4,800 unit 40 unit/kg (4800 unit) IVPUSH PROTOCOL BOLUS PRN; Protocol PRN Reason: 40 unit/kg - Heparin Protocol Last Admin: 06/30/21 09:30 Dose: 4,800 unit Documented by: Heparin Sodium (Porcine) (Heparin Sodium,Porcine 5,000 Unit/Ml Vial) 9,500 unit 80 unit/kg (9500 unit) IVPUSH PROTOCOL BOLUS PRN; Protocol PRN Reason: 80 unit/kg - Heparin Protocol Hydromorphone HCl (Hydromorphone Hcl 1 Mg/Ml Syringe) 0.5 mg IVPUSH Q10M PRN; Protocol PRN Reason: WOB Last Admin: 07/02/21 09:37 Dose: 0.5 mg Documented by: Heparin Sodium/Sodium Chloride () 25,000 unit in 250 mls @ 0 mls/hr IVCONT .Q0M [facility]; Protocol Last Titration: 07/01/21 07:13 Dose: Infused Documented by: Amiodarone HCl 900 mg/ Sodium (Chloride) 518 mls @ 17.267 mls/hr IVCONT .Q24H [facility]; Protocol Last Admin: 07/03/21 21:04 Dose: 0.5 mg/min, 17.27 mls/hr Documented by: Diltiazem HCl 125 mg/ Sodium (Chloride) 125 mls @ 0 mls/hr IVCONT .Q0M [facility]; Protocol Insulin Human Lispro (Insulin Lispro 100 Unit/Ml 3 Ml Vial) 0 unit SUBCUT QIDACHS [facility]; Protocol Last Admin: 07/03/21 20:59 Dose: Not Given Documented by: Metoprolol Tartrate (Metoprolol Tartrate 100 Mg Tablet) 100 mg PO BID [facility]; Protocol Last Admin: 07/03/21 21:03 Dose: 100 mg Documented by: Nitroglycerin (Nitroglycerin 2 % Oint 1 Gm Packet) 0.5 inch TRANSDERMA RQ6H WHILE AWAKE [facility] Last Admin: 07/03/21 21:03 Dose: 0.5 inch Documented by: Omeprazole (Omeprazole 20 Mg/10 Ml Susp.Recon) 40 mg PO BID@0630,1630 [facility] Last Admin: 07/04/21 05:42 Dose: 40 mg Documented by: Sodium Chloride (0.9 % Sodium Chloride Flush 3 Ml Syringe) 3 ml IVFLUSH QSHIFT [facility] Last Admin: 07/04/21 00:03 Dose: Not Given Documented by: Time Spent With Patient Time: Total time spent is greater than 50% in coordination of care (as documented) at patient's floor/unit and/or counseling patient: Time with patient: 15 - 24 minutes Progress Note: Quality Stroke Does the patient have a stroke diagnosis?: No Procedures Date of Service Date of Service: 07/04/21
[2021-07-04] MEDS: 0.9 % Sodium Chloride Flush 3 ML SYRINGE IVFLUSH ×3 (10:02→20:51)
[2021-07-04] MEDS: Insulin Lispro 100 UNIT/ML 3 ML VIAL SUBCUT ×2 (10:02→12:07)
[2021-07-04] MEDS: Nitroglycerin 2 % Oint 1 GM Packet 0.5 INCH TRANSDERMA ×3 (10:03→19:40)
[2021-07-04] MEDS: Metoprolol Tartrate 100 MG TABLET PO (10:03)
[2021-07-04 11:18] LABS: Glucose, Whole Blood 219 mg/dL (60-115)
[2021-07-04] MEDS: Furosemide 40 MG TABLET PO (12:07)
--- NOTE | 2021-07-04 15:14 | MHC.SL.SWA ---
Speech Pathologist Impression: Risk of Aspiration Risk of Aspiration Due to: Hx of Recent Extubation Dysphasia Diet Status: Upgrade Liquid Consistency and Strategies for Safe Swallow: Liquid Intake Recommendation: [place] Thick Liquid Intake Strategies: Small Sips No Straws Solid Food Consistency: Dietary Recommendations: Pureed (NDD1) Additional Modifications to Solid Foods: Add extra sauces/gravies Oral Medication Intake: Crushed with Puree Compensatory Strategies and Precautions to be Taken for Safe Swallow: Sitting Upright (90 deg) No Straw Small Bites and Sips Rate of Ingestion Change Oral Check Supervision While Eating and Drinking for Safe Swallow: Total Assistance Foods to Avoid: Swallowing Recommended Treatments: Compens. Strategy Educat. Recommendation for Speech: Inpatient Speech Therapy:Pt seen early PM for therapy immediately after lunch. Pt said he had eaten a good lunch, was not motivated to eat more, and was in discomfort due to needing assistance w/ bowel movement. Nursing advised, while waiting for nurse, pt agreed to take sips of nectar thick liquid. Pt took appropriate amount on sip, propelled bolus well and produced timely swallow w/ no clinical s/s aspiration. Further trials were not attempted at this time. Recommend continue on current diet of PUREE (NDD1) w/ NECTAR THICK liquid, w/ 1-1 supervision during meals. Comment: Frequency/Duration: 1 f/u Date Range for Service Req: Timeline to reassess: Lollypop Machine Operator Clinican/Clinical Fellow: No Supervisory Statement: I have reviewed and agree with the student/clinical fellow's documentation: N/A Speech Language Pathologist: Ashlyn Bliss M.A., CCC-INTERNATIONAL SOURCING MANAGER
--- NOTE | 2021-07-04 16:18 | P.CONPL_ITS ---
History of Present Illness History of Present Illness Consult date: 07/04/21 Chief complaint: VAZQUEZ INSERTION - LONG TURN ANTIBIOTICS Narrative: This is an inpatient pulmonary consultation. The patient is a 76-year-old gentleman presenting back on 06/08/2021 with respiratory failure. He was diagnosed with COVID-19. His course was complicated with atrial fibrillation with rapid to clear response, bilateral pneumonia from COVID. He was placed on Decadron. Ultimately, developed upper GI bleed with significant hypotension requiring ICU level of care. He was found to have duodenal ulcers likely worsened by the use of steroids. The patient was treated adequately. His course is complicated them with staph bacteremia. The patient has had multiple reactions to antibiotics. Now followed closely by Infectious Disease. The patient did require additional oxygen supplementation. Ultimately developing worsening respiratory failure not responding to BiPAP and transferred to the unit for invasive ventilation. Patient was intubated for several days. He was aggressively diuresed. He also developed significant renal failure it is a working closely with Nephrology. The patient was able to be liberated from the ventilator and transferred to the floor. Currently he is using high-flow 40% on 40 L along with BiPAP at nighttime. He continue with diuresis and follow up closely by Nephrology. Review of Systems Verdana 4l Review of Systems: Verdana 4d Yes all other systems are reviewed and are negative Verdana 4l Cardiovascular: Verdana 4d Verdana 4d Cardiovascular: Verdana 4d Reports as per HPI, Reports no additional cardiovascular complaints, Denies acrocyanosis, Denies cool extremities, Denies painful fingertips, Denies chest pain, Denies chest pain at rest, Denies diaphoresis, DeniesDenies syncope, Denies irregular heart rhythm, Denies claudication, Denies leg edema, Denies lightheadedness, Denies p alpitations and Reports dyspnea Respiratory: Respiratory: Reports dyspnea Neurologic: Denies syncope Endocrine: Endocrine: Denies palpitations PMF Past Medical History Medical History Arthritis Bacteremia due to Gram-positive bacteria COVID-19 vaccine series completed Diabetes Elevated cholesterol Elevated prostate specific antigen [PSA] History of BPH HTN (hypertension) Morbid obesity Surgical History Surgical History No significant past surgical history Social History Social History Household Members: Spouse Housing: Apartment Are you a primary acute care physician to a significant other at home: No Do you presently have visiting nurse or other home services: No Alcohol intake: current Alcohol intake frequency: a few times a month Patient Tobacco Use Status: Former Tobacco user Tobacco use type: Cigar service: No Current occupational status: retired Meds Allergies Allergy/AdvReac Type Severity Reaction Status Date / Time No Known Allergies Allergy Verified 06/08/21 18:52 Active Medications: Current Medications Amiodarone HCl (Amiodarone Hcl 200 Mg Tablet) 400 mg PO BID [facility] Finasteride (Finasteride 5 Mg Tablet) 5 mg PO DAILY [facility] Last Admin: 06/30/21 09:05 Dose: 5 mg Documented by: Furosemide (Furosemide 40 Mg Tablet) 40 mg PO DAILY [facility]; Protocol Last Admin: 07/04/21 12:07 Dose: 40 mg Documented by: Insulin Human Lispro (Insulin Lispro 100 Unit/Ml 3 Ml Vial) 0 unit SUBCUT QIDACHS [facility]; Protocol Last Admin: 07/04/21 12:07 Dose: 4 unit Documented by: Metoprolol Tartrate (Metoprolol Tartrate 25 Mg Tablet) 75 mg PO BID [facility]; Protocol Nitroglycerin (Nitroglycerin 2 % Oint 1 Gm Packet) 0.5 inch TRANSDERMA RQ6H WHILE AWAKE [facility] Last Admin: 07/04/21 10:03 Dose: 0.5 inch Documented by: Omeprazole (Omeprazole 20 Mg/10 Ml Susp.Recon) 40 mg PO BID@0630,1630 [facility] Last Admin: 07/04/21 05:42 Dose: 40 mg Documented by: Sodium Chloride (0.9 % Sodium Chloride Flush 3 Ml Syringe) 3 ml IVFLUSH QSHIFT [facility] Last Admin: 07/04/21 10:02 Dose: 3 ml Documented by: Home Medications Medication Instructions Recorded Confirmed Last Taken Type amlodipine 10 mg 10 mg PO DAILY 02/07/21 06/08/21 06/08/21 History tablet aspirin 81 mg 81 mg PO DAILY 02/07/21 06/08/21 06/08/21 History tablet,delayed release atorvastatin 10 10 mg PO BEDTIME 02/07/21 06/08/21 06/08/21 History mg tablet glipizide 10 mg 10 mg PO BID 02/07/21 06/08/21 06/08/21 History tablet lisinopril 40 mg 40 mg PO DAILY 02/07/21 06/08/21 06/08/21 History tablet metoprolol 100 mg PO BID 02/07/21 06/08/21 06/08/21 History tartrate 100 mg tablet pioglitazone 30 1 tab PO DAILY 06/08/21 06/08/21 06/08/21 History mg tablet triamcinolone 1 applic TOPICAL 06/08/21 06/08/21 Unknown History acetonide 0.1 % BID-TID topical cream Physical Exam Verdana 4l Vital Signs: Verdana 4d Verdana 4d Vital Signs: Verdana 4d Verdana 4Bd Last Vital Signs Verdana 4d 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 Temp 98.5 F 07/04/21 15:44 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 Pulse 68 07/04/21 15:44 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 Resp 17 07/04/21 15:44 BP 135/62 07/04/21 15:44 Pulse Ox 98 07/04/21 15:44 Oxygen Flow Rate 10 07/04/21 10:00 BMI result Body Mass Index 34.8 Const: General: alert and tired appearing Neck: Neck: Yes normal visual inspection, Yes full ROM and Yes no lymphadenopathy Chest: Chest palpation & inspection: normal inspection of the chest Resp: Auscultation: diminished lung sounds Cardio: Rate: regular rate Rhythm: regular rhythm Heart sounds: S1 normal heart sound present and S2 normal heart sound present GI: Palpation (GI): Soft to palpation and nontender Auscultation: normal bowel sounds Skin: General skin exam: rashes and/or lesions noted Extrem: General: Yes edema Results Laboratory Findings CBC and BMP: 07/03/21 05:10 07/03/21 05:10 ABG, PT/INR, D-dimer: PT/INR, D-dimer PT 14.5 SEC (9.9-13.0) H 06/29/21 18:32 INR 1.3 (0.9-1.1) H 06/29/21 18:32 Abnormal lab findings: Abnormal Labs 06/08/21 06/08/21 06/08/21 18:09 18:09 18:09 WBC 19.8 H RBC 4.34 L Hgb 13.1 L Hct 37.9 L MCHC RDW Plt Count Immature Gran % (Auto) 2.0 H Neut % (Auto) 90.3 H Lymph % (Auto) 3.1 L Cassia % (Auto) Eos % (Auto) Lymph # (Auto) 0.6 L Cassia # (Auto) Eos # (Auto) Abs Immat Gran (auto) 0.40 H Absolute Neuts (auto) 17.9 H Absolute Nucleated RBC Nucleated RBC % (auto) Neutrophils % (Manual) Band Neutrophils % Lymphocytes % (Manual) Abs Neuts (Manual) Lymphocytes # (Manual) Monocytes # (Manual) PT INR PTT (Heparin Protocol) VBG pH VBG HCO3 Sodium 130 L Potassium Chloride 93 L Carbon Dioxide 21 L Anion Gap BUN 91 H Creatinine 2.76 H POC Glucose Random Glucose Lactic Acid Calcium 8.2 L D Phosphorus Magnesium 3.6 H* Iron TIBC Ferritin Direct Bilirubin AST ALT Lactate Dehydrogenase Troponin I High Sens 46.0 H C-Reactive Protein B-Natriuretic Peptide 303 H Total Protein Albumin Ur Specific [place] Urine Blood Urine RBC U Random Total Protein Random Vancomycin COVID-19 (JOSE ALBERTO) Crossmatch 06/08/21 06/08/21 06/08/21 18:09 23:11 23:11 WBC RBC Hgb Hct MCHC RDW Plt Count Immature Gran % (Auto) Neut % (Auto) Lymph % (Auto) Cassia % (Auto) Eos % (Auto) Lymph # (Auto) Cassia # (Auto) Eos # (Auto) Abs Immat Gran (auto) Absolute Neuts (auto) Absolute Nucleated RBC Nucleated RBC % (auto) Neutrophils % (Manual) Band Neutrophils % Lymphocytes % (Manual) Abs Neuts (Manual) Lymphocytes # (Manual) Monocytes # (Manual) PT INR PTT (Heparin Protocol) VBG pH VBG HCO3 Sodium 131 L Potassium Chloride Carbon Dioxide Anion Gap BUN 93 H Creatinine 2.60 H POC Glucose Random Glucose Lactic Acid Calcium 7.6 L D Phosphorus Magnesium Iron TIBC Ferritin Direct Bilirubin AST ALT Lactate Dehydrogenase Troponin I High Sens 100.4 H* D C-Reactive Protein B-Natriuretic Peptide Total Protein Albumin Ur Specific [place] Urine Blood Urine RBC U Random Total Protein Random Vancomycin COVID-19 (JOSE ALBERTO) Positive A Crossmatch 06/08/21 06/09/21 06/09/21 23:11 00:12 08:00 WBC RBC Hgb Hct MCHC RDW Plt Count Immature Gran % (Auto) Neut % (Auto) Lymph % (Auto) Cassia % (Auto) Eos % (Auto) Lymph # (Auto) Cassia # (Auto) Eos # (Auto) Abs Immat Gran (auto) Absolute Neuts (auto) Absolute Nucleated RBC Nucleated RBC % (auto) Neutrophils % (Manual) Band Neutrophils % Lymphocytes % (Manual) Abs Neuts (Manual) Lymphocytes # (Manual) Monocytes # (Manual) PT INR PTT (Heparin Protocol) VBG pH VBG HCO3 Sodium Potassium Chloride Carbon Dioxide Anion Gap BUN Creatinine POC Glucose Random Glucose Lactic Acid Calcium Phosphorus Magnesium Iron TIBC Ferritin Direct Bilirubin AST ALT Lactate Dehydrogenase Troponin I High Sens 983.7 H* D C-Reactive Protein B-Natriuretic Peptide 270 H Total Protein Albumin Ur Specific [place] >= 1.030 H Urine Blood 2+ H Urine RBC 5-9 H U Random Total Protein Random Vancomycin COVID-19 (JOSE ALBERTO) Crossmatch 06/09/21 06/09/21 06/10/21 08:01 20:49 07:25 WBC 23.9 H RBC 3.84 L Hgb 11.2 L Hct 34.2 L MCHC RDW Plt Count Immature Gran % (Auto) 2.2 H Neut % (Auto) 90.1 H Lymph % (Auto) 2.3 L Cassia % (Auto) Eos % (Auto) Lymph # (Auto) 0.6 L Cassia # (Auto) Eos # (Auto) Abs Immat Gran (auto) 0.53 H Absolute Neuts (auto) 21.5 H Absolute Nucleated RBC Nucleated RBC % (auto) Neutrophils % (Manual) Band Neutrophils % Lymphocytes % (Manual) Abs Neuts (Manual) Lymphocytes # (Manual) Monocytes # (Manual) PT INR PTT (Heparin Protocol) VBG pH VBG HCO3 Sodium 131 L Potassium Chloride Carbon Dioxide Anion Gap BUN 94 H Creatinine 2.56 H POC Glucose 135 H Random Glucose Lactic Acid Calcium 7.3 L Phosphorus Magnesium 3.3 H Iron TIBC Ferritin Direct Bilirubin AST ALT Lactate Dehydrogenase Troponin I High Sens C-Reactive Protein B-Natriuretic Peptide Total Protein Albumin Ur Specific [place] Urine Blood Urine RBC U Random Total Protein Random Vancomycin COVID-19 (JOSE ALBERTO) Crossmatch 06/10/21 06/10/21 06/10/21 07:25 07:25 07:48 WBC RBC Hgb Hct MCHC RDW Plt Count Immature Gran % (Auto) Neut % (Auto) Lymph % (Auto) Cassia % (Auto) Eos % (Auto) Lymph # (Auto) Cassia # (Auto) Eos # (Auto) Abs Immat Gran (auto) Absolute Neuts (auto) Absolute Nucleated RBC Nucleated RBC % (auto) Neutrophils % (Manual) Band Neutrophils % Lymphocytes % (Manual) Abs Neuts (Manual) Lymphocytes # (Manual) Monocytes # (Manual) PT INR PTT (Heparin Protocol) VBG pH VBG HCO3 Sodium Potassium Chloride Carbon Dioxide Anion Gap BUN Creatinine POC Glucose 221 H Random Glucose Lactic Acid Calcium Phosphorus Magnesium 3.5 H* Iron TIBC Ferritin Direct Bilirubin AST ALT Lactate Dehydrogenase Troponin I High Sens C-Reactive Protein B-Natriuretic Peptide 340 H Total Protein Albumin Ur Specific [place] Urine Blood Urine RBC U Random Total Protein Random Vancomycin COVID-19 (JOSE ALBERTO) Crossmatch 06/10/21 06/10/21 06/10/21 11:57 13:26 13:26 WBC 26.7 H RBC 3.58 L Hgb 10.6 L Hct 32.1 L MCHC RDW Plt Count Immature Gran % (Auto) Neut % (Auto) Lymph % (Auto) Cassia % (Auto) Eos % (Auto) Lymph # (Auto) Cassia # (Auto) Eos # (Auto) Abs Immat Gran (auto) Absolute Neuts (auto) Absolute Nucleated RBC Nucleated RBC % (auto) Neutrophils % (Manual) Band Neutrophils % Lymphocytes % (Manual) Abs Neuts (Manual) Lymphocytes # (Manual) Monocytes # (Manual) PT INR PTT (Heparin Protocol) VBG pH VBG HCO3 Sodium Potassium Chloride Carbon Dioxide Anion Gap BUN Creatinine POC Glucose 228 H Random Glucose Lactic Acid Calcium Phosphorus Magnesium Iron TIBC Ferritin Direct Bilirubin 0.6 H AST 81 H ALT 50 H Lactate Dehydrogenase Troponin I High Sens C-Reactive Protein B-Natriuretic Peptide Total Protein 5.1 L D Albumin 2.6 L D Ur Specific [place] Urine Blood Urine RBC U Random Total Protein Random Vancomycin COVID-19 (JOSE ALBERTO) Crossmatch 06/10/21 06/10/21 06/10/21 13:26 13:26 13:27 WBC RBC Hgb Hct MCHC RDW Plt Count Immature Gran % (Auto) Neut % (Auto) Lymph % (Auto) Cassia % (Auto) Eos % (Auto) Lymph # (Auto) Cassia # (Auto) Eos # (Auto) Abs Immat Gran (auto) Absolute Neuts (auto) Absolute Nucleated RBC Nucleated RBC % (auto) Neutrophils % (Manual) Band Neutrophils % Lymphocytes % (Manual) Abs Neuts (Manual) Lymphocytes # (Manual) Monocytes # (Manual) PT INR PTT (Heparin Protocol) VBG pH VBG HCO3 Sodium 130 L Potassium Chloride Carbon Dioxide 19 L Anion Gap BUN 124 H D Creatinine 2.15 H POC Glucose Random Glucose 232 H D Lactic Acid 2.6 H* Calcium 7.2 L Phosphorus Magnesium Iron TIBC Ferritin Direct Bilirubin AST ALT Lactate Dehydrogenase Troponin I High Sens C-Reactive Protein B-Natriuretic Peptide Total Protein Albumin Ur Specific [place] Urine Blood Urine RBC U Random Total Protein Random Vancomycin COVID-19 (JOSE ALBERTO) Crossmatch See Detail 06/10/21 06/10/21 06/10/21 14:55 15:58 18:18 WBC RBC Hgb 7.1 L D Hct 21.1 L D MCHC RDW Plt Count Immature Gran % (Auto) Neut % (Auto) Lymph % (Auto) Cassia % (Auto) Eos % (Auto) Lymph # (Auto) Cassia # (Auto) Eos # (Auto) Abs Immat Gran (auto) Absolute Neuts (auto) Absolute Nucleated RBC Nucleated RBC % (auto) Neutrophils % (Manual) Band Neutrophils % Lymphocytes % (Manual) Abs Neuts (Manual) Lymphocytes # (Manual) Monocytes # (Manual) PT INR PTT (Heparin Protocol) VBG pH VBG HCO3 Sodium Potassium Chloride Carbon Dioxide Anion Gap BUN Creatinine POC Glucose 259 H 281 H Random Glucose Lactic Acid Calcium Phosphorus Magnesium Iron TIBC Ferritin Direct Bilirubin AST ALT Lactate Dehydrogenase Troponin I High Sens C-Reactive Protein B-Natriuretic Peptide Total Protein Albumin Ur Specific [place] Urine Blood Urine RBC U Random Total Protein Random Vancomycin COVID-19 (JOSE ALBERTO) Crossmatch 06/10/21 06/11/21 06/11/21 20:03 01:01 04:08 WBC 22.9 H RBC 2.57 L D Hgb 7.8 L 9.2 L Hct 23.0 L 27.3 L MCHC RDW Plt Count 110 L D Immature Gran % (Auto) 2.9 H Neut % (Auto) 88.0 H Lymph % (Auto) 3.4 L Cassia % (Auto) Eos % (Auto) Lymph # (Auto) 0.8 L Cassia # (Auto) 1.3 H Eos # (Auto) Abs Immat Gran (auto) 0.67 H Absolute Neuts (auto) 20.2 H Absolute Nucleated RBC Nucleated RBC % (auto) Neutrophils % (Manual) Band Neutrophils % Lymphocytes % (Manual) Abs Neuts (Manual) Lymphocytes # (Manual) Monocytes # (Manual) PT INR PTT (Heparin Protocol) VBG pH VBG HCO3 Sodium Potassium Chloride Carbon Dioxide Anion Gap BUN Creatinine POC Glucose 298 H Random Glucose Lactic Acid Calcium Phosphorus Magnesium Iron TIBC Ferritin Direct Bilirubin AST ALT Lactate Dehydrogenase Troponin I High Sens C-Reactive Protein B-Natriuretic Peptide Total Protein Albumin Ur Specific [place] Urine Blood Urine RBC U Random Total Protein Random Vancomycin COVID-19 (JOSE ALBERTO) Crossmatch 06/11/21 06/11/21 06/11/21 05:27 06:41 06:41 WBC 28.2 H RBC 3.00 L Hgb 8.8 L Hct 26.0 L MCHC RDW 16.3 H Plt Count 102 L Immature Gran % (Auto) 3.9 H Neut % (Auto) 87.8 H Lymph % (Auto) 3.2 L Cassia % (Auto) Eos % (Auto) Lymph # (Auto) 0.9 L Cassia # (Auto) 1.4 H Eos # (Auto) Abs Immat Gran (auto) 1.09 H Absolute Neuts (auto) 24.8 H Absolute Nucleated RBC Nucleated RBC % (auto) Neutrophils % (Manual) Band Neutrophils % Lymphocytes % (Manual) Abs Neuts (Manual) Lymphocytes # (Manual) Monocytes # (Manual) PT INR PTT (Heparin Protocol) VBG pH VBG HCO3 Sodium 133 L Potassium Chloride Carbon Dioxide 21 L Anion Gap BUN 126 H Creatinine 1.90 H POC Glucose 232 H Random Glucose 281 H Lactic Acid Calcium 7.9 L D Phosphorus Magnesium 3.3 H Iron TIBC Ferritin Direct Bilirubin AST 41 H D ALT Lactate Dehydrogenase Troponin I High Sens C-Reactive Protein B-Natriuretic Peptide Total Protein 4.5 L Albumin 2.7 L Ur Specific [place] Urine Blood Urine RBC U Random Total Protein Random Vancomycin COVID-19 (JOSE ALBRETO) Crossmatch 06/11/21 06/11/21 06/11/21 12:02 12:43 12:43 WBC 29.2 H RBC 2.25 L D Hgb 6.7 L* D Hct 20.1 L* D MCHC RDW 16.5 H Plt Count 109 L Immature Gran % (Auto) Neut % (Auto) Lymph % (Auto) Cassia % (Auto) Eos % (Auto) Lymph # (Auto) Cassia # (Auto) Eos # (Auto) Abs Immat Gran (auto) Absolute Neuts (auto) Absolute Nucleated RBC 0.020 H Nucleated RBC % (auto) Neutrophils % (Manual) Band Neutrophils % Lymphocytes % (Manual) Abs Neuts (Manual) Lymphocytes # (Manual) Monocytes # (Manual) PT INR PTT (Heparin Protocol) VBG pH VBG HCO3 Sodium 133 L Potassium Chloride Carbon Dioxide 21 L Anion Gap BUN 132 H Creatinine 2.16 H POC Glucose 287 H Random Glucose 367 H* Lactic Acid Calcium 7.2 L D Phosphorus 5.3 H Magnesium Iron TIBC Ferritin 1740 H Direct Bilirubin AST ALT Lactate Dehydrogenase 287 H Troponin I High Sens C-Reactive Protein 6.57 H B-Natriuretic Peptide Total Protein Albumin 3.3 L D Ur Specific [place] Urine Blood Urine RBC U Random Total Protein Random Vancomycin COVID-19 (JOSE ALBERTO) Crossmatch 06/11/21 06/11/21 06/11/21 12:43 12:47 12:51 WBC RBC Hgb Hct MCHC RDW Plt Count Immature Gran % (Auto) Neut % (Auto) Lymph % (Auto) Cassia % (Auto) Eos % (Auto) Lymph # (Auto) Cassia # (Auto) Eos # (Auto) Abs Immat Gran (auto) Absolute Neuts (auto) Absolute Nucleated RBC Nucleated RBC % (auto) Neutrophils % (Manual) Band Neutrophils % Lymphocytes % (Manual) Abs Neuts (Manual) Lymphocytes # (Manual) Monocytes # (Manual) PT INR PTT (Heparin Protocol) VBG pH 7.25 L 7.26 L VBG HCO3 19 L Sodium Potassium Chloride Carbon Dioxide Anion Gap BUN Creatinine POC Glucose Random Glucose Lactic Acid Calcium Phosphorus Magnesium Iron TIBC Ferritin Direct Bilirubin AST ALT Lactate Dehydrogenase Troponin I High Sens 323.8 H* D C-Reactive Protein B-Natriuretic Peptide Total Protein Albumin Ur Specific [place] Urine Blood Urine RBC U Random Total Protein Random Vancomycin COVID-19 (JOSE ALBERTO) Crossmatch 06/11/21 06/11/21 06/11/21 15:06 15:13 17:01 WBC RBC Hgb 9.1 L D Hct 27.3 L D MCHC RDW Plt Count Immature Gran % (Auto) Neut % (Auto) Lymph % (Auto) Cassia % (Auto) Eos % (Auto) Lymph # (Auto) Cassia # (Auto) Eos # (Auto) Abs Immat Gran (auto) Absolute Neuts (auto) Absolute Nucleated RBC Nucleated RBC % (auto) Neutrophils % (Manual) Band Neutrophils % Lymphocytes % (Manual) Abs Neuts (Manual) Lymphocytes # (Manual) Monocytes # (Manual) PT INR PTT (Heparin Protocol) VBG pH VBG HCO3 Sodium Potassium Chloride Carbon Dioxide Anion Gap BUN Creatinine POC Glucose 337 H 257 H Random Glucose Lactic Acid Calcium Phosphorus Magnesium Iron TIBC Ferritin Direct Bilirubin AST ALT Lactate Dehydrogenase Troponin I High Sens C-Reactive Protein B-Natriuretic Peptide Total Protein Albumin Ur Specific [place] Urine Blood Urine RBC U Random Total Protein Random Vancomycin COVID-19 (JOSE ALBERTO) Crossmatch 06/11/21 06/11/21 06/11/21 17:12 17:12 17:12 WBC RBC Hgb 8.9 L Hct 26.8 L MCHC RDW Plt Count Immature Gran % (Auto) Neut % (Auto) Lymph % (Auto) Cassia % (Auto) Eos % (Auto) Lymph # (Auto) Cassia # (Auto) Eos # (Auto) Abs Immat Gran (auto) Absolute Neuts (auto) Absolute Nucleated RBC Nucleated RBC % (auto) Neutrophils % (Manual) Band Neutrophils % Lymphocytes % (Manual) Abs Neuts (Manual) Lymphocytes # (Manual) Monocytes # (Manual) PT 13.1 H INR 1.2 H PTT (Heparin Protocol) VBG pH VBG HCO3 Sodium Potassium Chloride Carbon Dioxide Anion Gap BUN Creatinine POC Glucose Random Glucose Lactic Acid Calcium Phosphorus Magnesium Iron TIBC Ferritin Direct Bilirubin AST ALT Lactate Dehydrogenase Troponin I High Sens 261.5 H* C-Reactive Protein B-Natriuretic Peptide Total Protein Albumin Ur Specific [place] Urine Blood Urine RBC U Random Total Protein Random Vancomycin COVID-19 (JOSE ALBERTO) Crossmatch 06/11/21 06/11/21 06/11/21 18:58 20:30 20:31 WBC 27.1 H RBC 3.38 L D Hgb 10.2 L Hct 30.0 L MCHC RDW Plt Count 91 L Immature Gran % (Auto) Neut % (Auto) Lymph % (Auto) Cassia % (Auto) Eos % (Auto) Lymph # (Auto) Cassia # (Auto) Eos # (Auto) Abs Immat Gran (auto) Absolute Neuts (auto) Absolute Nucleated RBC 0.020 H Nucleated RBC % (auto) Neutrophils % (Manual) Band Neutrophils % Lymphocytes % (Manual) Abs Neuts (Manual) Lymphocytes # (Manual) Monocytes # (Manual) PT INR PTT (Heparin Protocol) VBG pH VBG HCO3 Sodium Potassium Chloride Carbon Dioxide Anion Gap BUN Creatinine POC Glucose 242 H 56 L* Random Glucose Lactic Acid Calcium Phosphorus Magnesium Iron TIBC Ferritin Direct Bilirubin AST ALT Lactate Dehydrogenase Troponin I High Sens C-Reactive Protein B-Natriuretic Peptide Total Protein Albumin Ur Specific [place] Urine Blood Urine RBC U Random Total Protein Random Vancomycin COVID-19 (JOSE ALBERTO) Crossmatch 06/11/21 06/11/21 06/12/21 20:34 22:47 00:57 WBC RBC Hgb Hct MCHC RDW Plt Count Immature Gran % (Auto) Neut % (Auto) Lymph % (Auto) Cassia % (Auto) Eos % (Auto) Lymph # (Auto) Cassia # (Auto) Eos # (Auto) Abs Immat Gran (auto) Absolute Neuts (auto) Absolute Nucleated RBC Nucleated RBC % (auto) Neutrophils % (Manual) Band Neutrophils % Lymphocytes % (Manual) Abs Neuts (Manual) Lymphocytes # (Manual) Monocytes # (Manual) PT INR PTT (Heparin Protocol) VBG pH VBG HCO3 Sodium Potassium Chloride Carbon Dioxide Anion Gap BUN Creatinine POC Glucose 225 H 209 H 170 H Random Glucose Lactic Acid Calcium Phosphorus Magnesium Iron TIBC Ferritin Direct Bilirubin AST ALT Lactate Dehydrogenase Troponin I High Sens C-Reactive Protein B-Natriuretic Peptide Total Protein Albumin Ur Specific [place] Urine Blood Urine RBC U Random Total Protein Random Vancomycin COVID-19 (JOSE ALBERTO) Crossmatch 06/12/21 06/12/21 06/12/21 03:04 05:00 05:30 WBC 23.9 H RBC 3.44 L Hgb 10.2 L Hct 30.3 L MCHC RDW 16.4 H Plt Count 90 L Immature Gran % (Auto) Neut % (Auto) Lymph % (Auto) Cassia % (Auto) Eos % (Auto) Lymph # (Auto) Cassia # (Auto) Eos # (Auto) Abs Immat Gran (auto) Absolute Neuts (auto) Absolute Nucleated RBC 0.020 H Nucleated RBC % (auto) Neutrophils % (Manual) 89 H Band Neutrophils % Lymphocytes % (Manual) Abs Neuts (Manual) 22.2 H Lymphocytes # (Manual) Monocytes # (Manual) PT INR PTT (Heparin Protocol) VBG pH VBG HCO3 Sodium Potassium Chloride Carbon Dioxide Anion Gap BUN Creatinine POC Glucose 159 H 162 H Random Glucose Lactic Acid Calcium Phosphorus Magnesium Iron TIBC Ferritin Direct Bilirubin AST ALT Lactate Dehydrogenase Troponin I High Sens C-Reactive Protein B-Natriuretic Peptide Total Protein Albumin Ur Specific [place] Urine Blood Urine RBC U Random Total Protein Random Vancomycin COVID-19 (JOSE ALBERTO) Crossmatch 06/12/21 06/12/21 06/12/21 05:30 05:45 07:06 WBC RBC Hgb Hct MCHC RDW Plt Count Immature Gran % (Auto) Neut % (Auto) Lymph % (Auto) [place]ia % (Auto) Eos % (Auto) Lymph # (Auto) Cassia # (Auto) Eos # (Auto) Abs Immat Gran (auto) Absolute Neuts (auto) Absolute Nucleated RBC Nucleated RBC % (auto) Neutrophils % (Manual) Band Neutrophils % Lymphocytes % (Manual) Abs Neuts (Manual) Lymphocytes # (Manual) Monocytes # (Manual) PT INR PTT (Heparin Protocol) VBG pH VBG HCO3 20 L Sodium Potassium Chloride 110 H Carbon Dioxide Anion Gap BUN 117 H Creatinine 1.93 H POC Glucose 139 H Random Glucose 162 H D Lactic Acid Calcium 7.4 L Phosphorus Magnesium Iron TIBC Ferritin Direct Bilirubin AST ALT Lactate Dehydrogenase Troponin I High Sens C-Reactive Protein B-Natriuretic Peptide Total Protein Albumin Ur Specific [place] Urine Blood Urine RBC U Random Total Protein Random Vancomycin COVID-19 (JOSE ALBERTO) Crossmatch 06/12/21 06/12/21 06/12/21 09:53 12:08 14:14 WBC RBC Hgb Hct MCHC RDW Plt Count Immature Gran % (Auto) Neut % (Auto) Lymph % (Auto) [place] % (Auto) Eos % (Auto) Lymph # (Auto) [place]ia # (Auto) Eos # (Auto) Abs Immat Gran (auto) Absolute Neuts (auto) Absolute Nucleated RBC Nucleated RBC % (auto) Neutrophils % (Manual) Band Neutrophils % Lymphocytes % (Manual) Abs Neuts (Manual) Lymphocytes # (Manual) Monocytes # (Manual) PT INR PTT (Heparin Protocol) VBG pH VBG HCO3 Sodium Potassium Chloride Carbon Dioxide Anion Gap BUN Creatinine POC Glucose 157 H 177 H 186 H Random Glucose Lactic Acid Calcium Phosphorus Magnesium Iron TIBC Ferritin Direct Bilirubin AST ALT Lactate Dehydrogenase Troponin I High Sens C-Reactive Protein B-Natriuretic Peptide Total Protein Albumin Ur Specific [place] Urine Blood Urine RBC U Random Total Protein Random Vancomycin COVID-19 (JOSE ALBERTO) Crossmatch 06/12/21 06/12/21 06/12/21 15:01 16:14 18:15 WBC 37.8 H* RBC 3.72 L Hgb 11.0 L Hct 33.8 L MCHC RDW 16.7 H Plt Count 77 L Immature Gran % (Auto) Neut % (Auto) Lymph % (Auto) Cassia % (Auto) Eos % (Auto) Lymph # (Auto) Cassia # (Auto) Eos # (Auto) Abs Immat Gran (auto) Absolute Neuts (auto) Absolute Nucleated RBC 0.040 H Nucleated RBC % (auto) Neutrophils % (Manual) 77 H Band Neutrophils % 7 H Lymphocytes % (Manual) 5 L Abs Neuts (Manual) 31.8 H Lymphocytes # (Manual) Monocytes # (Manual) 1.9 H PT INR PTT (Heparin Protocol) VBG pH VBG HCO3 Sodium Potassium Chloride Carbon Dioxide Anion Gap BUN Creatinine POC Glucose 189 H 199 H Random Glucose Lactic Acid Calcium Phosphorus Magnesium Iron TIBC Ferritin Direct Bilirubin AST ALT Lactate Dehydrogenase Troponin I High Sens C-Reactive Protein B-Natriuretic Peptide Total Protein Albumin Ur Specific [place] Urine Blood Urine RBC U Random Total Protein Random Vancomycin COVID-19 (JOSE ALBERTO) Crossmatch 06/12/21 06/12/21 06/12/21 20:02 22:06 23:20 WBC RBC Hgb 9.4 L Hct 27.8 L MCHC RDW Plt Count Immature Gran % (Auto) Neut % (Auto) Lymph % (Auto) Cassia % (Auto) Eos % (Auto) Lymph # (Auto) Cassia # (Auto) Eos # (Auto) Abs Immat Gran (auto) Absolute Neuts (auto) Absolute Nucleated RBC Nucleated RBC % (auto) Neutrophils % (Manual) Band Neutrophils % Lymphocytes % (Manual) Abs Neuts (Manual) Lymphocytes # (Manual) Monocytes # (Manual) PT INR PTT (Heparin Protocol) VBG pH VBG HCO3 Sodium Potassium Chloride Carbon Dioxide Anion Gap BUN Creatinine POC Glucose 206 H 201 H Random Glucose Lactic Acid Calcium Phosphorus Magnesium Iron TIBC Ferritin Direct Bilirubin AST ALT Lactate Dehydrogenase Troponin I High Sens C-Reactive Protein B-Natriuretic Peptide Total Protein Albumin Ur Specific [place] Urine Blood Urine RBC U Random Total Protein Random Vancomycin COVID-19 (JOSE ALBERTO) Crossmatch 06/12/21 06/13/21 06/13/21 23:32 02:01 03:56 WBC RBC Hgb Hct MCHC RDW Plt Count Immature Gran % (Auto) Neut % (Auto) Lymph % (Auto) Cassia % (Auto) Eos % (Auto) Lymph # (Auto) Cassia # (Auto) Eos # (Auto) Abs Immat Gran (auto) Absolute Neuts (auto) Absolute Nucleated RBC Nucleated RBC % (auto) Neutrophils % (Manual) Band Neutrophils % Lymphocytes % (Manual) Abs Neuts (Manual) Lymphocytes # (Manual) Monocytes # (Manual) PT INR PTT (Heparin Protocol) VBG pH VBG HCO3 Sodium Potassium Chloride Carbon Dioxide Anion Gap BUN Creatinine POC Glucose 199 H 192 H 175 H Random Glucose Lactic Acid Calcium Phosphorus Magnesium Iron TIBC Ferritin Direct Bilirubin AST ALT Lactate Dehydrogenase Troponin I High Sens C-Reactive Protein B-Natriuretic Peptide Total Protein Albumin Ur Specific [place] Urine Blood Urine RBC U Random Total Protein Random Vancomycin COVID-19 (JOSE ALBERTO) Crossmatch 06/13/21 06/13/21 06/13/21 05:35 05:36 05:36 WBC 31.0 H* RBC 3.10 L Hgb 9.3 L Hct 27.6 L MCHC RDW 16.7 H Plt Count 86 L Immature Gran % (Auto) Neut % (Auto) Lymph % (Auto) Cassia % (Auto) Eos % (Auto) Lymph # (Auto) Cassia # (Auto) Eos # (Auto) Abs Immat Gran (auto) Absolute Neuts (auto) Absolute Nucleated RBC 0.030 H Nucleated RBC % (auto) Neutrophils % (Manual) 91 H Band Neutrophils % Lymphocytes % (Manual) 3 L Abs Neuts (Manual) 29.8 H Lymphocytes # (Manual) 0.9 L Monocytes # (Manual) PT INR PTT (Heparin Protocol) VBG pH 7.47 H VBG HCO3 20 L Sodium Potassium Chloride 115 H Carbon Dioxide 19 L Anion Gap BUN 97 H Creatinine 1.70 H POC Glucose Random Glucose 191 H Lactic Acid Calcium 7.4 L Phosphorus Magnesium Iron TIBC Ferritin Direct Bilirubin AST ALT Lactate Dehydrogenase Troponin I High Sens C-Reactive Protein B-Natriuretic Peptide Total Protein 4.5 L Albumin 2.7 L Ur Specific [place] Urine Blood Urine RBC U Random Total Protein Random Vancomycin COVID-19 (JOSE ALBERTO) Crossmatch 06/13/21 06/13/21 06/13/21 05:39 07:53 09:59 WBC RBC Hgb Hct MCHC RDW Plt Count Immature Gran % (Auto) Neut % (Auto) Lymph % (Auto) Cassia % (Auto) Eos % (Auto) Lymph # (Auto) Cassia # (Auto) Eos # (Auto) Abs Immat Gran (auto) Absolute Neuts (auto) Absolute Nucleated RBC Nucleated RBC % (auto) Neutrophils % (Manual) Band Neutrophils % Lymphocytes % (Manual) Abs Neuts (Manual) Lymphocytes # (Manual) Monocytes # (Manual) PT INR PTT (Heparin Protocol) VBG pH VBG HCO3 Sodium Potassium Chloride Carbon Dioxide Anion Gap BUN Creatinine POC Glucose 166 H 183 H 193 H Random Glucose Lactic Acid Calcium Phosphorus Magnesium Iron TIBC Ferritin Direct Bilirubin AST ALT Lactate Dehydrogenase Troponin I High Sens C-Reactive Protein B-Natriuretic Peptide Total Protein Albumin Ur Specific [place] Urine Blood Urine RBC U Random Total Protein Random Vancomycin COVID-19 (JOSE ALBERTO) Crossmatch 06/13/21 06/13/21 06/13/21 11:45 14:06 14:52 WBC RBC Hgb Hct MCHC RDW Plt Count Immature Gran % (Auto) Neut % (Auto) Lymph % (Auto) Cassia % (Auto) Eos % (Auto) Lymph # (Auto) Cassia # (Auto) Eos # (Auto) Abs Immat Gran (auto) Absolute Neuts (auto) Absolute Nucleated RBC Nucleated RBC % (auto) Neutrophils % (Manual) Band Neutrophils % Lymphocytes % (Manual) Abs Neuts (Manual) Lymphocytes # (Manual) Monocytes # (Manual) PT INR PTT (Heparin Protocol) VBG pH VBG HCO3 Sodium Potassium Chloride Carbon Dioxide Anion Gap BUN Creatinine POC Glucose 196 H 221 H Random Glucose Lactic Acid Calcium Phosphorus Magnesium Iron TIBC Ferritin Direct Bilirubin AST ALT Lactate Dehydrogenase Troponin I High Sens C-Reactive Protein B-Natriuretic Peptide Total Protein Albumin Ur Specific [place] Urine Blood Urine RBC U Random Total Protein Random Vancomycin 13.8 L COVID-19 (JOSE ALBERTO) Crossmatch 06/13/21 06/13/21 06/13/21 15:55 17:11 17:56 WBC 32.7 H* RBC 3.02 L Hgb 9.1 L Hct 26.9 L MCHC RDW 16.8 H Plt Count 98 L Immature Gran % (Auto) Neut % (Auto) Lymph % (Auto) Cassia % (Auto) Eos % (Auto) Lymph # (Auto) Cassia # (Auto) Eos # (Auto) Abs Immat Gran (auto) Absolute Neuts (auto) Absolute Nucleated RBC 0.030 H Nucleated RBC % (auto) Neutrophils % (Manual) 92 H Band Neutrophils % Lymphocytes % (Manual) 1 L Abs Neuts (Manual) 31.4 H Lymphocytes # (Manual) 0.3 L Monocytes # (Manual) PT INR PTT (Heparin Protocol) VBG pH VBG HCO3 Sodium Potassium Chloride Carbon Dioxide Anion Gap BUN Creatinine POC Glucose 214 H 182 H Random Glucose Lactic Acid Calcium Phosphorus Magnesium Iron TIBC Ferritin Direct Bilirubin AST ALT Lactate Dehydrogenase Troponin I High Sens C-Reactive Protein B-Natriuretic Peptide Total Protein Albumin Ur Specific [place] Urine Blood Urine RBC U Random Total Protein Random Vancomycin COVID-19 (JOSE ALBERTO) Crossmatch 06/13/21 06/13/21 06/13/21 19:56 21:38 23:40 WBC RBC Hgb Hct MCHC RDW Plt Count Immature Gran % (Auto) Neut % (Auto) Lymph % (Auto) Cassia % (Auto) Eos % (Auto) Lymph # (Auto) Cassia # (Auto) Eos # (Auto) Abs Immat Gran (auto) Absolute Neuts (auto) Absolute Nucleated RBC Nucleated RBC % (auto) Neutrophils % (Manual) Band Neutrophils % Lymphocytes % (Manual) Abs Neuts (Manual) Lymphocytes # (Manual) Monocytes # (Manual) PT INR PTT (Heparin Protocol) VBG pH VBG HCO3 Sodium Potassium Chloride Carbon Dioxide Anion Gap BUN Creatinine POC Glucose 182 H 172 H 182 H Random Glucose Lactic Acid Calcium Phosphorus Magnesium Iron TIBC Ferritin Direct Bilirubin AST ALT Lactate Dehydrogenase Troponin I High Sens C-Reactive Protein B-Natriuretic Peptide Total Protein Albumin Ur Specific [place] Urine Blood Urine RBC U Random Total Protein Random Vancomycin COVID-19 (JOSE ALBERTO) Crossmatch 06/14/21 06/14/21 06/14/21 01:40 03:18 05:40 WBC RBC Hgb Hct MCHC RDW Plt Count Immature Gran % (Auto) Neut % (Auto) Lymph % (Auto) Cassia % (Auto) Eos % (Auto) Lymph # (Auto) Cassia # (Auto) Eos # (Auto) Abs Immat Gran (auto) Absolute Neuts (auto) Absolute Nucleated RBC Nucleated RBC % (auto) Neutrophils % (Manual) Band Neutrophils % Lymphocytes % (Manual) Abs Neuts (Manual) Lymphocytes # (Manual) Monocytes # (Manual) PT INR PTT (Heparin Protocol) VBG pH 7.47 H VBG HCO3 21 L Sodium Potassium Chloride Carbon Dioxide Anion Gap BUN Creatinine POC Glucose 191 H 182 H Random Glucose Lactic Acid Calcium Phosphorus Magnesium Iron TIBC Ferritin Direct Bilirubin AST ALT Lactate Dehydrogenase Troponin I High Sens C-Reactive Protein B-Natriuretic Peptide Total Protein Albumin Ur Specific [place] Urine Blood Urine RBC U Random Total Protein Random Vancomycin COVID-19 (JOSE ALBERTO) Crossmatch 06/14/21 06/14/21 06/14/21 05:41 05:43 05:43 WBC 28.9 H RBC 3.05 L Hgb 8.8 L Hct 27.3 L MCHC RDW 16.9 H Plt Count 115 L Immature Gran % (Auto) Neut % (Auto) Lymph % (Auto) Cassia % (Auto) Eos % (Auto) Lymph # (Auto) Cassia # (Auto) Eos # (Auto) Abs Immat Gran (auto) Absolute Neuts (auto) Absolute Nucleated RBC 0.050 H Nucleated RBC % (auto) Neutrophils % (Manual) 88 H Band Neutrophils % 2 L Lymphocytes % (Manual) 4 L Abs Neuts (Manual) 26.0 H Lymphocytes # (Manual) Monocytes # (Manual) PT INR PTT (Heparin Protocol) VBG pH VBG HCO3 Sodium 146 H Potassium Chloride 117 H Carbon Dioxide 21 L Anion Gap BUN 68 H Creatinine 1.45 H POC Glucose 204 H Random Glucose 231 H Lactic Acid Calcium 7.7 L Phosphorus Magnesium Iron TIBC Ferritin Direct Bilirubin AST ALT Lactate Dehydrogenase Troponin I High Sens C-Reactive Protein B-Natriuretic Peptide Total Protein 4.7 L Albumin 2.6 L Ur Specific [place] Urine Blood Urine RBC U Random Total Protein Random Vancomycin COVID-19 (JOSE ALBERTO) Crossmatch 06/14/21 06/14/21 06/14/21 07:51 09:48 12:10 WBC RBC Hgb Hct MCHC RDW Plt Count Immature Gran % (Auto) Neut % (Auto) Lymph % (Auto) Cassia % (Auto) Eos % (Auto) Lymph # (Auto) Cassia # (Auto) Eos # (Auto) Abs Immat Gran (auto) Absolute Neuts (auto) Absolute Nucleated RBC Nucleated RBC % (auto) Neutrophils % (Manual) Band Neutrophils % Lymphocytes % (Manual) Abs Neuts (Manual) Lymphocytes # (Manual) Monocytes # (Manual) PT INR PTT (Heparin Protocol) VBG pH VBG HCO3 Sodium Potassium Chloride Carbon Dioxide Anion Gap BUN Creatinine POC Glucose 187 H 185 H 213 H Random Glucose Lactic Acid Calcium Phosphorus Magnesium Iron TIBC Ferritin Direct Bilirubin AST ALT Lactate Dehydrogenase Troponin I High Sens C-Reactive Protein B-Natriuretic Peptide Total Protein Albumin Ur Specific [place] Urine Blood Urine RBC U Random Total Protein Random Vancomycin COVID-19 (JOSE ALBERTO) Crossmatch 06/14/21 06/14/21 06/14/21 14:21 15:57 17:47 WBC RBC Hgb Hct MCHC RDW Plt Count Immature Gran % (Auto) Neut % (Auto) Lymph % (Auto) Cassia % (Auto) Eos % (Auto) Lymph # (Auto) [place]ia # (Auto) Eos # (Auto) Abs Immat Gran (auto) Absolute Neuts (auto) Absolute Nucleated RBC Nucleated RBC % (auto) Neutrophils % (Manual) Band Neutrophils % Lymphocytes % (Manual) Abs Neuts (Manual) Lymphocytes # (Manual) Monocytes # (Manual) PT INR PTT (Heparin Protocol) VBG pH VBG HCO3 Sodium Potassium Chloride Carbon Dioxide Anion Gap BUN Creatinine POC Glucose 210 H 169 H 177 H Random Glucose Lactic Acid Calcium Phosphorus Magnesium Iron TIBC Ferritin Direct Bilirubin AST ALT Lactate Dehydrogenase Troponin I High Sens C-Reactive Protein B-Natriuretic Peptide Total Protein Albumin Ur Specific [place] Urine Blood Urine RBC U Random Total Protein Random Vancomycin COVID-19 (JOSE ALBERTO) Crossmatch 06/14/21 06/14/21 06/14/21 20:27 22:30 23:45 WBC RBC Hgb Hct MCHC RDW Plt Count Immature Gran % (Auto) Neut % (Auto) Lymph % (Auto) Cassia % (Auto) Eos % (Auto) Lymph # (Auto) Cassia # (Auto) Eos # (Auto) Abs Immat Gran (auto) Absolute Neuts (auto) Absolute Nucleated RBC Nucleated RBC % (auto) Neutrophils % (Manual) Band Neutrophils % Lymphocytes % (Manual) Abs Neuts (Manual) Lymphocytes # (Manual) Monocytes # (Manual) PT INR PTT (Heparin Protocol) VBG pH VBG HCO3 Sodium Potassium Chloride Carbon Dioxide Anion Gap BUN Creatinine POC Glucose 175 H 181 H 166 H Random Glucose Lactic Acid Calcium Phosphorus Magnesium Iron TIBC Ferritin Direct Bilirubin AST ALT Lactate Dehydrogenase Troponin I High Sens C-Reactive Protein B-Natriuretic Peptide Total Protein Albumin Ur Specific [place] Urine Blood Urine RBC U Random Total Protein Random Vancomycin COVID-19 (JOSE ALBERTO) Crossmatch 06/15/21 06/15/21 06/15/21 01:33 03:58 06:02 WBC RBC Hgb Hct MCHC RDW Plt Count Immature Gran % (Auto) Neut % (Auto) Lymph % (Auto) Cassia % (Auto) Eos % (Auto) Lymph # (Auto) [place]ia # (Auto) Eos # (Auto) Abs Immat Gran (auto) Absolute Neuts (auto) Absolute Nucleated RBC Nucleated RBC % (auto) Neutrophils % (Manual) Band Neutrophils % Lymphocytes % (Manual) Abs Neuts (Manual) Lymphocytes # (Manual) Monocytes # (Manual) PT INR PTT (Heparin Protocol) VBG pH VBG HCO3 Sodium Potassium Chloride Carbon Dioxide Anion Gap BUN Creatinine POC Glucose 158 H 177 H 171 H Random Glucose Lactic Acid Calcium Phosphorus Magnesium Iron TIBC Ferritin Direct Bilirubin AST ALT Lactate Dehydrogenase Troponin I High Sens C-Reactive Protein B-Natriuretic Peptide Total Protein Albumin Ur Specific [place] Urine Blood Urine RBC U Random Total Protein Random Vancomycin COVID-19 (JOSE ALBERTO) Crossmatch 06/15/21 06/15/21 06/15/21 06:04 06:04 06:04 WBC 20.0 H RBC 2.72 L Hgb 7.9 L Hct 24.5 L MCHC RDW 17.1 H Plt Count 133 L Immature Gran % (Auto) Neut % (Auto) Lymph % (Auto) Cassia % (Auto) Eos % (Auto) Lymph # (Auto) Cassia # (Auto) Eos # (Auto) Abs Immat Gran (auto) Absolute Neuts (auto) Absolute Nucleated RBC 0.030 H Nucleated RBC % (auto) Neutrophils % (Manual) 84 H Band Neutrophils % 7 H Lymphocytes % (Manual) 2 L Abs Neuts (Manual) 18.2 H Lymphocytes # (Manual) 0.4 L Monocytes # (Manual) PT INR PTT (Heparin Protocol) VBG pH VBG HCO3 Sodium 148 H Potassium Chloride 121 H Carbon Dioxide Anion Gap 9 L BUN 54 H Creatinine POC Glucose Random Glucose 193 H Lactic Acid Calcium 7.6 L Phosphorus Magnesium Iron TIBC Ferritin Direct Bilirubin AST 56 H ALT Lactate Dehydrogenase Troponin I High Sens C-Reactive Protein B-Natriuretic Peptide 170 H Total Protein 4.4 L Albumin 2.4 L Ur Specific [place] Urine Blood Urine RBC U Random Total Protein Random Vancomycin COVID-19 (JOSE ALBERTO) Crossmatch 06/15/21 06/15/21 06/15/21 06:06 07:47 08:31 WBC RBC Hgb Hct MCHC RDW Plt Count Immature Gran % (Auto) Neut % (Auto) Lymph % (Auto) Cassia % (Auto) Eos % (Auto) Lymph # (Auto) [place]ia # (Auto) Eos # (Auto) Abs Immat Gran (auto) Absolute Neuts (auto) Absolute Nucleated RBC Nucleated RBC % (auto) Neutrophils % (Manual) Band Neutrophils % Lymphocytes % (Manual) Abs Neuts (Manual) Lymphocytes # (Manual) Monocytes # (Manual) PT INR PTT (Heparin Protocol) VBG pH 7.47 H VBG HCO3 Sodium Potassium Chloride Carbon Dioxide Anion Gap BUN Creatinine POC Glucose 168 H Random Glucose Lactic Acid Calcium Phosphorus Magnesium Iron TIBC Ferritin Direct Bilirubin AST ALT Lactate Dehydrogenase Troponin I High Sens C-Reactive Protein B-Natriuretic Peptide Total Protein Albumin Ur Specific [place] Urine Blood Urine RBC U Random Total Protein Random Vancomycin COVID-19 (JOSE ALBERTO) Crossmatch See Detail 06/15/21 06/15/21 06/15/21 10:04 12:05 14:19 WBC RBC Hgb Hct MCHC RDW Plt Count Immature Gran % (Auto) Neut % (Auto) Lymph % (Auto) Cassia % (Auto) Eos % (Auto) Lymph # (Auto) Cassia # (Auto) Eos # (Auto) Abs Immat Gran (auto) Absolute Neuts (auto) Absolute Nucleated RBC Nucleated RBC % (auto) Neutrophils % (Manual) Band Neutrophils % Lymphocytes % (Manual) Abs Neuts (Manual) Lymphocytes # (Manual) Monocytes # (Manual) PT INR PTT (Heparin Protocol) VBG pH VBG HCO3 Sodium Potassium Chloride Carbon Dioxide Anion Gap BUN Creatinine POC Glucose 267 H 227 H 200 H Random Glucose Lactic Acid Calcium Phosphorus Magnesium Iron TIBC Ferritin Direct Bilirubin AST ALT Lactate Dehydrogenase Troponin I High Sens C-Reactive Protein B-Natriuretic Peptide Total Protein Albumin Ur Specific [place] Urine Blood Urine RBC U Random Total Protein Random Vancomycin COVID-19 (JOSE ALBERTO) Crossmatch 06/15/21 06/15/21 06/15/21 16:00 16:11 17:56 WBC RBC Hgb Hct MCHC RDW Plt Count Immature Gran % (Auto) Neut % (Auto) Lymph % (Auto) Cassia % (Auto) Eos % (Auto) Lymph # (Auto) Cassia # (Auto) Eos # (Auto) Abs Immat Gran (auto) Absolute Neuts (auto) Absolute Nucleated RBC Nucleated RBC % (auto) Neutrophils % (Manual) Band Neutrophils % Lymphocytes % (Manual) Abs Neuts (Manual) Lymphocytes # (Manual) Monocytes # (Manual) PT INR PTT (Heparin Protocol) VBG pH VBG HCO3 Sodium Potassium Chloride 118 H Carbon Dioxide 21 L Anion Gap 10 L BUN 53 H Creatinine POC Glucose 169 H Random Glucose 195 H Lactic Acid Calcium 7.5 L Phosphorus Magnesium Iron TIBC Ferritin Direct Bilirubin AST ALT Lactate Dehydrogenase Troponin I High Sens C-Reactive Protein B-Natriuretic Peptide Total Protein Albumin Ur Specific [place] Urine Blood Urine RBC 5-9 H U Random Total Protein Random Vancomycin COVID-19 (JOSE ALBERTO) Crossmatch 06/15/21 06/15/21 06/15/21 18:07 19:45 21:53 WBC RBC Hgb Hct MCHC RDW Plt Count Immature Gran % (Auto) Neut % (Auto) Lymph % (Auto) Cassia % (Auto) Eos % (Auto) Lymph # (Auto) Cassia # (Auto) Eos # (Auto) Abs Immat Gran (auto) Absolute Neuts (auto) Absolute Nucleated RBC Nucleated RBC % (auto) Neutrophils % (Manual) Band Neutrophils % Lymphocytes % (Manual) Abs Neuts (Manual) Lymphocytes # (Manual) Monocytes # (Manual) PT INR PTT (Heparin Protocol) VBG pH VBG HCO3 Sodium Potassium Chloride Carbon Dioxide Anion Gap BUN Creatinine POC Glucose 125 H 125 H 131 H Random Glucose Lactic Acid Calcium Phosphorus Magnesium Iron TIBC Ferritin Direct Bilirubin AST ALT Lactate Dehydrogenase Troponin I High Sens C-Reactive Protein B-Natriuretic Peptide Total Protein Albumin Ur Specific [place] Urine Blood Urine RBC U Random Total Protein Random Vancomycin COVID-19 (JOSE ALBERTO) Crossmatch 06/16/21 06/16/21 06/16/21 00:39 02:16 04:16 WBC RBC Hgb Hct MCHC RDW Plt Count Immature Gran % (Auto) Neut % (Auto) Lymph % (Auto) Cassia % (Auto) Eos % (Auto) Lymph # (Auto) Cassia # (Auto) Eos # (Auto) Abs Immat Gran (auto) Absolute Neuts (auto) Absolute Nucleated RBC Nucleated RBC % (auto) Neutrophils % (Manual) Band Neutrophils % Lymphocytes % (Manual) Abs Neuts (Manual) Lymphocytes # (Manual) Monocytes # (Manual) PT INR PTT (Heparin Protocol) VBG pH VBG HCO3 Sodium Potassium Chloride Carbon Dioxide Anion Gap BUN Creatinine POC Glucose 182 H 187 H 168 H Random Glucose Lactic Acid Calcium Phosphorus Magnesium Iron TIBC Ferritin Direct Bilirubin AST ALT Lactate Dehydrogenase Troponin I High Sens C-Reactive Protein B-Natriuretic Peptide Total Protein Albumin Ur Specific [place] Urine Blood Urine RBC U Random Total Protein Random Vancomycin COVID-19 (JOSE ALBERTO) Crossmatch 06/16/21 06/16/21 06/16/21 05:15 05:20 06:19 WBC 17.7 H RBC 2.76 L Hgb 8.1 L Hct 25.5 L MCHC RDW 17.1 H Plt Count 141 L Immature Gran % (Auto) 4.0 H Neut % (Auto) 87.7 H Lymph % (Auto) 5.1 L [place]ia % (Auto) 1.8 L Eos % (Auto) Lymph # (Auto) 0.9 L [place]ia # (Auto) Eos # (Auto) Abs Immat Gran (auto) 0.71 H Absolute Neuts (auto) 15.5 H Absolute Nucleated RBC Nucleated RBC % (auto) Neutrophils % (Manual) Band Neutrophils % Lymphocytes % (Manual) Abs Neuts (Manual) Lymphocytes # (Manual) Monocytes # (Manual) PT INR PTT (Heparin Protocol) VBG pH VBG HCO3 19 L Sodium Potassium Chloride Carbon Dioxide Anion Gap BUN Creatinine POC Glucose 171 H Random Glucose Lactic Acid Calcium Phosphorus Magnesium Iron TIBC Ferritin Direct Bilirubin AST ALT Lactate Dehydrogenase Troponin I High Sens C-Reactive Protein B-Natriuretic Peptide Total Protein Albumin Ur Specific [place] Urine Blood Urine RBC U Random Total Protein Random Vancomycin COVID-19 (JOSE ALBERTO) Crossmatch 06/16/21 06/16/21 06/16/21 08:09 08:29 10:13 WBC RBC Hgb Hct MCHC RDW Plt Count Immature Gran % (Auto) Neut % (Auto) Lymph % (Auto) Cassia % (Auto) Eos % (Auto) Lymph # (Auto) [place]ia # (Auto) Eos # (Auto) Abs Immat Gran (auto) Absolute Neuts (auto) Absolute Nucleated RBC Nucleated RBC % (auto) Neutrophils % (Manual) Band Neutrophils % Lymphocytes % (Manual) Abs Neuts (Manual) Lymphocytes # (Manual) Monocytes # (Manual) PT INR PTT (Heparin Protocol) VBG pH VBG HCO3 Sodium Potassium Chloride 114 H Carbon Dioxide 20 L Anion Gap 10 L BUN 47 H Creatinine POC Glucose 154 H 158 H Random Glucose 177 H Lactic Acid Calcium 7.4 L Phosphorus Magnesium Iron TIBC Ferritin Direct Bilirubin AST ALT Lactate Dehydrogenase Troponin I High Sens C-Reactive Protein B-Natriuretic Peptide Total Protein Albumin Ur Specific [place] Urine Blood Urine RBC U Random Total Protein Random Vancomycin COVID-19 (JOSE ALBERTO) Crossmatch 06/16/21 06/16/21 06/16/21 11:49 14:16 16:11 WBC RBC Hgb Hct MCHC RDW Plt Count Immature Gran % (Auto) Neut % (Auto) Lymph % (Auto) Cassia % (Auto) Eos % (Auto) Lymph # (Auto) [place]ia # (Auto) Eos # (Auto) Abs Immat Gran (auto) Absolute Neuts (auto) Absolute Nucleated RBC Nucleated RBC % (auto) Neutrophils % (Manual) Band Neutrophils % Lymphocytes % (Manual) Abs Neuts (Manual) Lymphocytes # (Manual) Monocytes # (Manual) PT INR PTT (Heparin Protocol) VBG pH VBG HCO3 Sodium Potassium Chloride Carbon Dioxide Anion Gap BUN Creatinine POC Glucose 144 H 147 H 119 H Random Glucose Lactic Acid Calcium Phosphorus Magnesium Iron TIBC Ferritin Direct Bilirubin AST ALT Lactate Dehydrogenase Troponin I High Sens C-Reactive Protein B-Natriuretic Peptide Total Protein Albumin Ur Specific [place] Urine Blood Urine RBC U Random Total Protein Random Vancomycin COVID-19 (JOSE ALBERTO) Crossmatch 06/16/21 06/16/21 06/16/21 17:53 20:04 22:22 WBC RBC Hgb Hct MCHC RDW Plt Count Immature Gran % (Auto) Neut % (Auto) Lymph % (Auto) [place]ia % (Auto) Eos % (Auto) Lymph # (Auto) [place]ia # (Auto) Eos # (Auto) Abs Immat Gran (auto) Absolute Neuts (auto) Absolute Nucleated RBC Nucleated RBC % (auto) Neutrophils % (Manual) Band Neutrophils % Lymphocytes % (Manual) Abs Neuts (Manual) Lymphocytes # (Manual) Monocytes # (Manual) PT INR PTT (Heparin Protocol) VBG pH VBG HCO3 Sodium Potassium Chloride Carbon Dioxide Anion Gap BUN Creatinine POC Glucose 140 H 178 H 198 H Random Glucose Lactic Acid Calcium Phosphorus Magnesium Iron TIBC Ferritin Direct Bilirubin AST ALT Lactate Dehydrogenase Troponin I High Sens C-Reactive Protein B-Natriuretic Peptide Total Protein Albumin Ur Specific [place] Urine Blood Urine RBC U Random Total Protein Random Vancomycin COVID-19 (JOSE ALBERTO) Crossmatch 06/17/21 06/17/21 06/17/21 00:18 02:00 03:58 WBC RBC Hgb Hct MCHC RDW Plt Count Immature Gran % (Auto) Neut % (Auto) Lymph % (Auto) [place]ia % (Auto) Eos % (Auto) Lymph # (Auto) [place]ia # (Auto) Eos # (Auto) Abs Immat Gran (auto) Absolute Neuts (auto) Absolute Nucleated RBC Nucleated RBC % (auto) Neutrophils % (Manual) Band Neutrophils % Lymphocytes % (Manual) Abs Neuts (Manual) Lymphocytes # (Manual) Monocytes # (Manual) PT INR PTT (Heparin Protocol) VBG pH VBG HCO3 Sodium Potassium Chloride Carbon Dioxide Anion Gap BUN Creatinine POC Glucose 227 H 191 H 170 H Random Glucose Lactic Acid Calcium Phosphorus Magnesium Iron TIBC Ferritin Direct Bilirubin AST ALT Lactate Dehydrogenase Troponin I High Sens C-Reactive Protein B-Natriuretic Peptide Total Protein Albumin Ur Specific [place] Urine Blood Urine RBC U Random Total Protein Random Vancomycin COVID-19 (JOSE ALBERTO) Crossmatch 06/17/21 06/17/21 06/17/21 05:17 05:20 05:20 WBC 19.5 H RBC 2.79 L Hgb 8.4 L Hct 25.6 L MCHC RDW 17.1 H Plt Count 148 L Immature Gran % (Auto) 2.3 H Neut % (Auto) 89.0 H Lymph % (Auto) 3.6 L [place] % (Auto) Eos % (Auto) Lymph # (Auto) 0.7 L [place] # (Auto) Eos # (Auto) Abs Immat Gran (auto) 0.44 H Absolute Neuts (auto) 17.3 H Absolute Nucleated RBC Nucleated RBC % (auto) Neutrophils % (Manual) Band Neutrophils % Lymphocytes % (Manual) Abs Neuts (Manual) Lymphocytes # (Manual) Monocytes # (Manual) PT INR PTT (Heparin Protocol) VBG pH 7.45 H VBG HCO3 20 L Sodium Potassium Chloride 114 H Carbon Dioxide 19 L Anion Gap BUN 42 H Creatinine POC Glucose Random Glucose 202 H Lactic Acid Calcium 7.6 L Phosphorus Magnesium Iron TIBC Ferritin Direct Bilirubin AST 40 H ALT Lactate Dehydrogenase Troponin I High Sens C-Reactive Protein B-Natriuretic Peptide Total Protein 4.5 L Albumin 2.2 L Ur Specific [place] Urine Blood Urine RBC U Random Total Protein Random Vancomycin COVID-19 (JOSE ALBERTO) Crossmatch 06/17/21 06/17/21 06/17/21 06:27 08:11 09:58 WBC RBC Hgb Hct MCHC RDW Plt Count Immature Gran % (Auto) Neut % (Auto) Lymph % (Auto) Cassia % (Auto) Eos % (Auto) Lymph # (Auto) Cassia # (Auto) Eos # (Auto) Abs Immat Gran (auto) Absolute Neuts (auto) Absolute Nucleated RBC Nucleated RBC % (auto) Neutrophils % (Manual) Band Neutrophils % Lymphocytes % (Manual) Abs Neuts (Manual) Lymphocytes # (Manual) Monocytes # (Manual) PT INR PTT (Heparin Protocol) VBG pH VBG HCO3 Sodium Potassium Chloride Carbon Dioxide Anion Gap BUN Creatinine POC Glucose 195 H 193 H 211 H Random Glucose Lactic Acid Calcium Phosphorus Magnesium Iron TIBC Ferritin Direct Bilirubin AST ALT Lactate Dehydrogenase Troponin I High Sens C-Reactive Protein B-Natriuretic Peptide Total Protein Albumin Ur Specific [place] Urine Blood Urine RBC U Random Total Protein Random Vancomycin COVID-19 (JOSE ALBERTO) Crossmatch 06/17/21 06/17/21 06/17/21 11:41 14:03 15:58 WBC RBC Hgb Hct MCHC RDW Plt Count Immature Gran % (Auto) Neut % (Auto) Lymph % (Auto) Cassia % (Auto) Eos % (Auto) Lymph # (Auto) [place]ia # (Auto) Eos # (Auto) Abs Immat Gran (auto) Absolute Neuts (auto) Absolute Nucleated RBC Nucleated RBC % (auto) Neutrophils % (Manual) Band Neutrophils % Lymphocytes % (Manual) Abs Neuts (Manual) Lymphocytes # (Manual) Monocytes # (Manual) PT INR PTT (Heparin Protocol) VBG pH VBG HCO3 Sodium Potassium Chloride Carbon Dioxide Anion Gap BUN Creatinine POC Glucose 163 H 157 H 136 H Random Glucose Lactic Acid Calcium Phosphorus Magnesium Iron TIBC Ferritin Direct Bilirubin AST ALT Lactate Dehydrogenase Troponin I High Sens C-Reactive Protein B-Natriuretic Peptide Total Protein Albumin Ur Specific [place] Urine Blood Urine RBC U Random Total Protein Random Vancomycin COVID-19 (JOSE ALBERTO) Crossmatch 06/17/21 06/17/21 06/17/21 17:53 19:47 22:18 WBC RBC Hgb Hct MCHC RDW Plt Count Immature Gran % (Auto) Neut % (Auto) Lymph % (Auto) Cassia % (Auto) Eos % (Auto) Lymph # (Auto) [place]ia # (Auto) Eos # (Auto) Abs Immat Gran (auto) Absolute Neuts (auto) Absolute Nucleated RBC Nucleated RBC % (auto) Neutrophils % (Manual) Band Neutrophils % Lymphocytes % (Manual) Abs Neuts (Manual) Lymphocytes # (Manual) Monocytes # (Manual) PT INR PTT (Heparin Protocol) VBG pH VBG HCO3 Sodium Potassium Chloride Carbon Dioxide Anion Gap BUN Creatinine POC Glucose 158 H 187 H 194 H Random Glucose Lactic Acid Calcium Phosphorus Magnesium Iron TIBC Ferritin Direct Bilirubin AST ALT Lactate Dehydrogenase Troponin I High Sens C-Reactive Protein B-Natriuretic Peptide Total Protein Albumin Ur Specific [place] Urine Blood Urine RBC U Random Total Protein Random Vancomycin COVID-19 (JOSE ALBERTO) Crossmatch 06/18/21 06/18/21 06/18/21 00:15 01:57 04:12 WBC RBC Hgb Hct MCHC RDW Plt Count Immature Gran % (Auto) Neut % (Auto) Lymph % (Auto) Cassia % (Auto) Eos % (Auto) Lymph # (Auto) [place]ia # (Auto) Eos # (Auto) Abs Immat Gran (auto) Absolute Neuts (auto) Absolute Nucleated RBC Nucleated RBC % (auto) Neutrophils % (Manual) Band Neutrophils % Lymphocytes % (Manual) Abs Neuts (Manual) Lymphocytes # (Manual) Monocytes # (Manual) PT INR PTT (Heparin Protocol) VBG pH VBG HCO3 Sodium Potassium Chloride Carbon Dioxide Anion Gap BUN Creatinine POC Glucose 207 H 231 H 217 H Random Glucose Lactic Acid Calcium Phosphorus Magnesium Iron TIBC Ferritin Direct Bilirubin AST ALT Lactate Dehydrogenase Troponin I High Sens C-Reactive Protein B-Natriuretic Peptide Total Protein Albumin Ur Specific [place] Urine Blood Urine RBC U Random Total Protein Random Vancomycin COVID-19 (JOSE ALBERTO) Crossmatch 06/18/21 06/18/21 06/18/21 05:44 05:44 05:44 WBC 18.2 H RBC 2.57 L Hgb 7.7 L Hct 23.8 L MCHC RDW 16.9 H Plt Count 133 L Immature Gran % (Auto) 1.5 H Neut % (Auto) 89.8 H Lymph % (Auto) 3.2 L [place]ia % (Auto) Eos % (Auto) Lymph # (Auto) 0.6 L [place] # (Auto) Eos # (Auto) Abs Immat Gran (auto) 0.28 H Absolute Neuts (auto) 16.4 H Absolute Nucleated RBC Nucleated RBC % (auto) Neutrophils % (Manual) Band Neutrophils % Lymphocytes % (Manual) Abs Neuts (Manual) Lymphocytes # (Manual) Monocytes # (Manual) PT 13.1 H INR 1.2 H PTT (Heparin Protocol) VBG pH VBG HCO3 Sodium Potassium Chloride Carbon Dioxide 21 L Anion Gap 11 L BUN 38 H Creatinine POC Glucose Random Glucose 305 H D Lactic Acid Calcium 8.0 L Phosphorus Magnesium Iron TIBC Ferritin Direct Bilirubin AST 44 H ALT Lactate Dehydrogenase Troponin I High Sens C-Reactive Protein B-Natriuretic Peptide Total Protein 4.8 L Albumin 2.7 L D Ur Specific [place] Urine Blood Urine RBC U Random Total Protein Random Vancomycin COVID-19 (JOSE ALBERTO) Crossmatch 06/18/21 06/18/21 06/18/21 06:05 08:11 10:03 WBC RBC Hgb Hct MCHC RDW Plt Count Immature Gran % (Auto) Neut % (Auto) Lymph % (Auto) [place]ia % (Auto) Eos % (Auto) Lymph # (Auto) [place] # (Auto) Eos # (Auto) Abs Immat Gran (auto) Absolute Neuts (auto) Absolute Nucleated RBC Nucleated RBC % (auto) Neutrophils % (Manual) Band Neutrophils % Lymphocytes % (Manual) Abs Neuts (Manual) Lymphocytes # (Manual) Monocytes # (Manual) PT INR PTT (Heparin Protocol) VBG pH VBG HCO3 Sodium Potassium Chloride Carbon Dioxide Anion Gap BUN Creatinine POC Glucose 270 H 254 H 246 H Random Glucose Lactic Acid Calcium Phosphorus Magnesium Iron TIBC Ferritin Direct Bilirubin AST ALT Lactate Dehydrogenase Troponin I High Sens C-Reactive Protein B-Natriuretic Peptide Total Protein Albumin Ur Specific [place] Urine Blood Urine RBC U Random Total Protein Random Vancomycin COVID-19 (JOSE ALBERTO) Crossmatch 06/18/21 06/18/21 06/18/21 11:56 14:24 16:05 WBC RBC Hgb Hct MCHC RDW Plt Count Immature Gran % (Auto) Neut % (Auto) Lymph % (Auto) Cassia % (Auto) Eos % (Auto) Lymph # (Auto) [place] # (Auto) Eos # (Auto) Abs Immat Gran (auto) Absolute Neuts (auto) Absolute Nucleated RBC Nucleated RBC % (auto) Neutrophils % (Manual) Band Neutrophils % Lymphocytes % (Manual) Abs Neuts (Manual) Lymphocytes # (Manual) Monocytes # (Manual) PT INR PTT (Heparin Protocol) VBG pH VBG HCO3 Sodium Potassium Chloride Carbon Dioxide Anion Gap BUN Creatinine POC Glucose 250 H 192 H 222 H Random Glucose Lactic Acid Calcium Phosphorus Magnesium Iron TIBC Ferritin Direct Bilirubin AST ALT Lactate Dehydrogenase Troponin I High Sens C-Reactive Protein B-Natriuretic Peptide Total Protein Albumin Ur Specific [place] Urine Blood Urine RBC U Random Total Protein Random Vancomycin COVID-19 (JOSE ALBERTO) Crossmatch 06/18/21 06/18/21 06/18/21 17:55 19:46 21:59 WBC RBC Hgb Hct MCHC RDW Plt Count Immature Gran % (Auto) Neut % (Auto) Lymph % (Auto) [place]ia % (Auto) Eos % (Auto) Lymph # (Auto) [place] # (Auto) Eos # (Auto) Abs Immat Gran (auto) Absolute Neuts (auto) Absolute Nucleated RBC Nucleated RBC % (auto) Neutrophils % (Manual) Band Neutrophils % Lymphocytes % (Manual) Abs Neuts (Manual) Lymphocytes # (Manual) Monocytes # (Manual) PT INR PTT (Heparin Protocol) VBG pH VBG HCO3 Sodium Potassium Chloride Carbon Dioxide Anion Gap BUN Creatinine POC Glucose 209 H 190 H 191 H Random Glucose Lactic Acid Calcium Phosphorus Magnesium Iron TIBC Ferritin Direct Bilirubin AST ALT Lactate Dehydrogenase Troponin I High Sens C-Reactive Protein B-Natriuretic Peptide Total Protein Albumin Ur Specific [place] Urine Blood Urine RBC U Random Total Protein Random Vancomycin COVID-19 (JOSE ALBERTO) Crossmatch 06/19/21 06/19/21 06/19/21 00:13 03:11 04:07 WBC RBC Hgb Hct MCHC RDW Plt Count Immature Gran % (Auto) Neut % (Auto) Lymph % (Auto) [place]ia % (Auto) Eos % (Auto) Lymph # (Auto) [place] # (Auto) Eos # (Auto) Abs Immat Gran (auto) Absolute Neuts (auto) Absolute Nucleated RBC Nucleated RBC % (auto) Neutrophils % (Manual) Band Neutrophils % Lymphocytes % (Manual) Abs Neuts (Manual) Lymphocytes # (Manual) Monocytes # (Manual) PT INR PTT (Heparin Protocol) VBG pH VBG HCO3 Sodium Potassium Chloride Carbon Dioxide Anion Gap BUN Creatinine POC Glucose 170 H 159 H 207 H Random Glucose Lactic Acid Calcium Phosphorus Magnesium Iron TIBC Ferritin Direct Bilirubin AST ALT Lactate Dehydrogenase Troponin I High Sens C-Reactive Protein B-Natriuretic Peptide Total Protein Albumin Ur Specific [place] Urine Blood Urine RBC U Random Total Protein Random Vancomycin COVID-19 (JOSE ALBERTO) Crossmatch 06/19/21 06/19/21 06/19/21 05:14 05:16 05:16 WBC 18.4 H RBC 2.52 L Hgb 7.4 L Hct 22.8 L MCHC RDW 16.5 H Plt Count 130 L Immature Gran % (Auto) 1.3 H Neut % (Auto) 89.3 H Lymph % (Auto) 3.6 L [place] % (Auto) Eos % (Auto) Lymph # (Auto) 0.7 L [place] # (Auto) Eos # (Auto) Abs Immat Gran (auto) 0.24 H Absolute Neuts (auto) 16.5 H Absolute Nucleated RBC Nucleated RBC % (auto) Neutrophils % (Manual) Band Neutrophils % Lymphocytes % (Manual) Abs Neuts (Manual) Lymphocytes # (Manual) Monocytes # (Manual) PT INR PTT (Heparin Protocol) VBG pH 7.46 H VBG HCO3 21 L Sodium Potassium Chloride Carbon Dioxide Anion Gap BUN 42 H Creatinine POC Glucose Random Glucose 233 H Lactic Acid Calcium Phosphorus 4.6 H Magnesium 1.5 L Iron TIBC Ferritin Direct Bilirubin AST 40 H ALT Lactate Dehydrogenase 330 H Troponin I High Sens C-Reactive Protein 12.10 H B-Natriuretic Peptide Total Protein 5.1 L Albumin 3.0 L Ur Specific [place] Urine Blood Urine RBC U Random Total Protein Random Vancomycin COVID-19 (JOSE ALBERTO) Crossmatch 06/19/21 06/19/21 06/19/21 05:16 05:17 05:17 WBC RBC Hgb Hct MCHC RDW Plt Count Immature Gran % (Auto) Neut % (Auto) Lymph % (Auto) [place]ia % (Auto) Eos % (Auto) Lymph # (Auto) [place] # (Auto) Eos # (Auto) Abs Immat Gran (auto) Absolute Neuts (auto) Absolute Nucleated RBC Nucleated RBC % (auto) Neutrophils % (Manual) Band Neutrophils % Lymphocytes % (Manual) Abs Neuts (Manual) Lymphocytes # (Manual) Monocytes # (Manual) PT 13.1 H INR 1.2 H PTT (Heparin Protocol) VBG pH VBG HCO3 Sodium Potassium Chloride Carbon Dioxide Anion Gap BUN Creatinine POC Glucose Random Glucose Lactic Acid Calcium Phosphorus Magnesium Iron TIBC Ferritin 1738 H Direct Bilirubin AST ALT Lactate Dehydrogenase Troponin I High Sens C-Reactive Protein B-Natriuretic Peptide 679 H Total Protein Albumin Ur Specific [place] Urine Blood Urine RBC U Random Total Protein Random Vancomycin COVID-19 (JOSE ALBERTO) Crossmatch 06/19/21 06/19/21 06/19/21 06:23 07:58 10:11 WBC RBC Hgb Hct MCHC RDW Plt Count Immature Gran % (Auto) Neut % (Auto) Lymph % (Auto) [place]ia % (Auto) Eos % (Auto) Lymph # (Auto) [place] # (Auto) Eos # (Auto) Abs Immat Gran (auto) Absolute Neuts (auto) Absolute Nucleated RBC Nucleated RBC % (auto) Neutrophils % (Manual) Band Neutrophils % Lymphocytes % (Manual) Abs Neuts (Manual) Lymphocytes # (Manual) Monocytes # (Manual) PT INR PTT (Heparin Protocol) VBG pH VBG HCO3 Sodium Potassium Chloride Carbon Dioxide Anion Gap BUN Creatinine POC Glucose 225 H 221 H 179 H Random Glucose Lactic Acid Calcium Phosphorus Magnesium Iron TIBC Ferritin Direct Bilirubin AST ALT Lactate Dehydrogenase Troponin I High Sens C-Reactive Protein B-Natriuretic Peptide Total Protein Albumin Ur Specific [place] Urine Blood Urine RBC U Random Total Protein Random Vancomycin COVID-19 (JOSE ALBERTO) Crossmatch 06/19/21 06/19/21 06/19/21 12:18 14:10 15:25 WBC RBC Hgb Hct MCHC RDW Plt Count Immature Gran % (Auto) Neut % (Auto) Lymph % (Auto) [place]ia % (Auto) Eos % (Auto) Lymph # (Auto) [place] # (Auto) Eos # (Auto) Abs Immat Gran (auto) Absolute Neuts (auto) Absolute Nucleated RBC Nucleated RBC % (auto) Neutrophils % (Manual) Band Neutrophils % Lymphocytes % (Manual) Abs Neuts (Manual) Lymphocytes # (Manual) Monocytes # (Manual) PT INR PTT (Heparin Protocol) VBG pH VBG HCO3 Sodium Potassium Chloride Carbon Dioxide Anion Gap BUN Creatinine POC Glucose 164 H 138 H 135 H Random Glucose Lactic Acid Calcium Phosphorus Magnesium Iron TIBC Ferritin Direct Bilirubin AST ALT Lactate Dehydrogenase Troponin I High Sens C-Reactive Protein B-Natriuretic Peptide Total Protein Albumin Ur Specific [place] Urine Blood Urine RBC U Random Total Protein Random Vancomycin COVID-19 (JOSE ALBERTO) Crossmatch 06/19/21 06/19/21 06/19/21 17:26 17:40 20:11 WBC RBC Hgb Hct MCHC RDW Plt Count Immature Gran % (Auto) Neut % (Auto) Lymph % (Auto) [place] % (Auto) Eos % (Auto) Lymph # (Auto) [place] # (Auto) Eos # (Auto) Abs Immat Gran (auto) Absolute Neuts (auto) Absolute Nucleated RBC Nucleated RBC % (auto) Neutrophils % (Manual) Band Neutrophils % Lymphocytes % (Manual) Abs Neuts (Manual) Lymphocytes # (Manual) Monocytes # (Manual) PT INR PTT (Heparin Protocol) VBG pH VBG HCO3 Sodium Potassium Chloride Carbon Dioxide Anion Gap BUN 37 H Creatinine POC Glucose 119 H 187 H Random Glucose Lactic Acid Calcium Phosphorus Magnesium Iron TIBC Ferritin Direct Bilirubin AST ALT Lactate Dehydrogenase Troponin I High Sens C-Reactive Protein B-Natriuretic Peptide Total Protein Albumin Ur Specific [place] Urine Blood Urine RBC U Random Total Protein Random Vancomycin COVID-19 (JOSE ALBERTO) Crossmatch 06/19/21 06/20/21 06/20/21 22:03 01:59 05:35 WBC 24.1 H RBC 2.72 L Hgb 8.0 L Hct 24.4 L MCHC RDW Plt Count 141 L Immature Gran % (Auto) 1.0 H Neut % (Auto) 92.2 H Lymph % (Auto) 2.5 L [place] % (Auto) Eos % (Auto) Lymph # (Auto) 0.6 L [place] # (Auto) Eos # (Auto) Abs Immat Gran (auto) 0.23 H Absolute Neuts (auto) 22.2 H Absolute Nucleated RBC Nucleated RBC % (auto) Neutrophils % (Manual) Band Neutrophils % Lymphocytes % (Manual) Abs Neuts (Manual) Lymphocytes # (Manual) Monocytes # (Manual) PT INR PTT (Heparin Protocol) VBG pH VBG HCO3 Sodium Potassium Chloride Carbon Dioxide Anion Gap BUN Creatinine POC Glucose 203 H 236 H Random Glucose Lactic Acid Calcium Phosphorus Magnesium Iron TIBC Ferritin Direct Bilirubin AST ALT Lactate Dehydrogenase Troponin I High Sens C-Reactive Protein B-Natriuretic Peptide Total Protein Albumin Ur Specific [place] Urine Blood Urine RBC U Random Total Protein Random Vancomycin COVID-19 (JOSE ALBERTO) Crossmatch 06/20/21 06/20/21 06/20/21 05:35 05:39 11:52 WBC RBC Hgb Hct MCHC RDW Plt Count Immature Gran % (Auto) Neut % (Auto) Lymph % (Auto) [place]ia % (Auto) Eos % (Auto) Lymph # (Auto) [place] # (Auto) Eos # (Auto) Abs Immat Gran (auto) Absolute Neuts (auto) Absolute Nucleated RBC Nucleated RBC % (auto) Neutrophils % (Manual) Band Neutrophils % Lymphocytes % (Manual) Abs Neuts (Manual) Lymphocytes # (Manual) Monocytes # (Manual) PT INR PTT (Heparin Protocol) VBG pH 7.50 H VBG HCO3 29 H Sodium Potassium Chloride Carbon Dioxide Anion Gap BUN 38 H Creatinine POC Glucose 211 H Random Glucose 207 H D Lactic Acid Calcium Phosphorus 5.0 H Magnesium Iron TIBC Ferritin Direct Bilirubin AST ALT Lactate Dehydrogenase Troponin I High Sens C-Reactive Protein B-Natriuretic Peptide Total Protein Albumin Ur Specific [place] Urine Blood Urine RBC U Random Total Protein Random Vancomycin COVID-19 (JOSE ALBERTO) Crossmatch 06/20/21 06/20/21 06/21/21 17:48 23:00 05:20 WBC 17.2 H RBC 2.62 L Hgb 7.7 L Hct 23.8 L MCHC RDW 16.1 H Plt Count 159 L Immature Gran % (Auto) 0.7 H Neut % (Auto) 89.7 H Lymph % (Auto) 3.5 L [place] % (Auto) Eos % (Auto) Lymph # (Auto) 0.6 L [place] # (Auto) Eos # (Auto) Abs Immat Gran (auto) 0.12 H Absolute Neuts (auto) 15.5 H Absolute Nucleated RBC Nucleated RBC % (auto) Neutrophils % (Manual) Band Neutrophils % Lymphocytes % (Manual) Abs Neuts (Manual) Lymphocytes # (Manual) Monocytes # (Manual) PT INR PTT (Heparin Protocol) VBG pH VBG HCO3 Sodium Potassium Chloride Carbon Dioxide Anion Gap BUN Creatinine POC Glucose 220 H 172 H Random Glucose Lactic Acid Calcium Phosphorus Magnesium Iron TIBC Ferritin Direct Bilirubin AST ALT Lactate Dehydrogenase Troponin I High Sens C-Reactive Protein B-Natriuretic Peptide Total Protein Albumin Ur Specific [place] Urine Blood Urine RBC U Random Total Protein Random Vancomycin COVID-19 (JOSE ALBERTO) Crossmatch 06/21/21 06/21/21 06/21/21 05:20 05:20 05:36 WBC RBC Hgb Hct MCHC RDW Plt Count Immature Gran % (Auto) Neut % (Auto) Lymph % (Auto) [place] % (Auto) Eos % (Auto) Lymph # (Auto) [place] # (Auto) Eos # (Auto) Abs Immat Gran (auto) Absolute Neuts (auto) Absolute Nucleated RBC Nucleated RBC % (auto) Neutrophils % (Manual) Band Neutrophils % Lymphocytes % (Manual) Abs Neuts (Manual) Lymphocytes # (Manual) Monocytes # (Manual) PT INR PTT (Heparin Protocol) VBG pH 7.52 H VBG HCO3 29 H Sodium Potassium Chloride Carbon Dioxide Anion Gap BUN 56 H Creatinine 1.64 H POC Glucose Random Glucose 232 H Lactic Acid Calcium Phosphorus 5.5 H Magnesium Iron TIBC Ferritin Direct Bilirubin AST ALT Lactate Dehydrogenase Troponin I High Sens C-Reactive Protein 20.77 H B-Natriuretic Peptide 1768 H Total Protein Albumin 3.3 L Ur Specific [place] Urine Blood Urine RBC U Random Total Protein Random Vancomycin COVID-19 (JOSE ALBERTO) Crossmatch 06/21/21 06/21/21 06/21/21 05:46 11:43 16:55 WBC RBC Hgb Hct MCHC RDW Plt Count Immature Gran % (Auto) Neut % (Auto) Lymph % (Auto) [place] % (Auto) Eos % (Auto) Lymph # (Auto) [place] # (Auto) Eos # (Auto) Abs Immat Gran (auto) Absolute Neuts (auto) Absolute Nucleated RBC Nucleated RBC % (auto) Neutrophils % (Manual) Band Neutrophils % Lymphocytes % (Manual) Abs Neuts (Manual) Lymphocytes # (Manual) Monocytes # (Manual) PT INR PTT (Heparin Protocol) VBG pH VBG HCO3 Sodium Potassium Chloride Carbon Dioxide Anion Gap BUN Creatinine POC Glucose 213 H 330 H 254 H Random Glucose Lactic Acid Calcium Phosphorus Magnesium Iron TIBC Ferritin Direct Bilirubin AST ALT Lactate Dehydrogenase Troponin I High Sens C-Reactive Protein B-Natriuretic Peptide Total Protein Albumin Ur Specific [place] Urine Blood Urine RBC U Random Total Protein Random Vancomycin COVID-19 (JOSE ALBERTO) Crossmatch 06/21/21 06/22/21 06/22/21 20:11 00:16 06:04 WBC 17.5 H RBC 2.96 L Hgb 8.8 L Hct 27.6 L MCHC RDW 16.6 H Plt Count Immature Gran % (Auto) Neut % (Auto) Lymph % (Auto) [place] % (Auto) Eos % (Auto) Lymph # (Auto) [place] # (Auto) Eos # (Auto) Abs Immat Gran (auto) Absolute Neuts (auto) Absolute Nucleated RBC Nucleated RBC % (auto) Neutrophils % (Manual) Band Neutrophils % Lymphocytes % (Manual) Abs Neuts (Manual) Lymphocytes # (Manual) Monocytes # (Manual) PT INR PTT (Heparin Protocol) VBG pH VBG HCO3 Sodium Potassium Chloride Carbon Dioxide Anion Gap BUN Creatinine POC Glucose 153 H 127 H Random Glucose Lactic Acid Calcium Phosphorus Magnesium Iron TIBC Ferritin Direct Bilirubin AST ALT Lactate Dehydrogenase Troponin I High Sens C-Reactive Protein B-Natriuretic Peptide Total Protein Albumin Ur Specific [place] Urine Blood Urine RBC U Random Total Protein Random Vancomycin COVID-19 (JOSE ALBERTO) Crossmatch 06/22/21 06/22/21 06/22/21 06:04 06:04 06:23 WBC RBC Hgb Hct MCHC RDW Plt Count Immature Gran % (Auto) Neut % (Auto) Lymph % (Auto) [place] % (Auto) Eos % (Auto) Lymph # (Auto) [place] # (Auto) Eos # (Auto) Abs Immat Gran (auto) Absolute Neuts (auto) Absolute Nucleated RBC Nucleated RBC % (auto) Neutrophils % (Manual) Band Neutrophils % Lymphocytes % (Manual) Abs Neuts (Manual) Lymphocytes # (Manual) Monocytes # (Manual) PT INR PTT (Heparin Protocol) VBG pH VBG HCO3 Sodium 147 H Potassium Chloride Carbon Dioxide Anion Gap BUN 68 H Creatinine 1.92 H POC Glucose 188 H Random Glucose 214 H Lactic Acid Calcium Phosphorus Magnesium Iron TIBC Ferritin Direct Bilirubin AST ALT Lactate Dehydrogenase Troponin I High Sens C-Reactive Protein B-Natriuretic Peptide 1699 H Total Protein Albumin Ur Specific [place] Urine Blood Urine RBC U Random Total Protein Random Vancomycin COVID-19 (JOSE ALBERTO) Crossmatch 06/22/21 06/22/21 06/22/21 07:45 11:29 17:09 WBC RBC Hgb Hct MCHC RDW Plt Count Immature Gran % (Auto) Neut % (Auto) Lymph % (Auto) [place] % (Auto) Eos % (Auto) Lymph # (Auto) [place] # (Auto) Eos # (Auto) Abs Immat Gran (auto) Absolute Neuts (auto) Absolute Nucleated RBC Nucleated RBC % (auto) Neutrophils % (Manual) Band Neutrophils % Lymphocytes % (Manual) Abs Neuts (Manual) Lymphocytes # (Manual) Monocytes # (Manual) PT INR PTT (Heparin Protocol) VBG pH VBG HCO3 Sodium Potassium Chloride Carbon Dioxide Anion Gap BUN Creatinine POC Glucose 214 H 255 H 141 H Random Glucose Lactic Acid Calcium Phosphorus Magnesium Iron TIBC Ferritin Direct Bilirubin AST ALT Lactate Dehydrogenase Troponin I High Sens C-Reactive Protein B-Natriuretic Peptide Total Protein Albumin Ur Specific [place] Urine Blood Urine RBC U Random Total Protein Random Vancomycin COVID-19 (JOSE ALBERTO) Crossmatch 06/22/21 06/22/21 06/23/21 17:12 20:46 06:37 WBC 15.8 H RBC 2.68 L Hgb 7.9 L Hct 25.0 L MCHC RDW 16.6 H Plt Count Immature Gran % (Auto) 0.9 H Neut % (Auto) 88.9 H Lymph % (Auto) 5.3 L [place] % (Auto) Eos % (Auto) Lymph # (Auto) 0.8 L [place] # (Auto) Eos # (Auto) Abs Immat Gran (auto) 0.15 H Absolute Neuts (auto) 14.1 H Absolute Nucleated RBC Nucleated RBC % (auto) Neutrophils % (Manual) Band Neutrophils % Lymphocytes % (Manual) Abs Neuts (Manual) Lymphocytes # (Manual) Monocytes # (Manual) PT INR PTT (Heparin Protocol) VBG pH VBG HCO3 Sodium Potassium Chloride Carbon Dioxide Anion Gap BUN Creatinine POC Glucose 187 H Random Glucose Lactic Acid Calcium Phosphorus Magnesium Iron TIBC Ferritin Direct Bilirubin AST ALT Lactate Dehydrogenase Troponin I High Sens C-Reactive Protein B-Natriuretic Peptide Total Protein Albumin Ur Specific [place] Urine Blood Urine RBC U Random Total Protein 34 H Random Vancomycin COVID-19 (JOSE ALBERTO) Crossmatch 06/23/21 06/23/21 06/23/21 06:37 09:15 11:28 WBC RBC Hgb Hct MCHC RDW Plt Count Immature Gran % (Auto) Neut % (Auto) Lymph % (Auto) [place] % (Auto) Eos % (Auto) Lymph # (Auto) [place] # (Auto) Eos # (Auto) Abs Immat Gran (auto) Absolute Neuts (auto) Absolute Nucleated RBC Nucleated RBC % (auto) Neutrophils % (Manual) Band Neutrophils % Lymphocytes % (Manual) Abs Neuts (Manual) Lymphocytes # (Manual) Monocytes # (Manual) PT INR PTT (Heparin Protocol) VBG pH VBG HCO3 Sodium Potassium Chloride Carbon Dioxide 20 L Anion Gap 24 H BUN 80 H Creatinine 1.92 H POC Glucose 242 H 277 H Random Glucose 247 H Lactic Acid Calcium Phosphorus Magnesium Iron TIBC Ferritin Direct Bilirubin AST ALT Lactate Dehydrogenase Troponin I High Sens C-Reactive Protein B-Natriuretic Peptide Total Protein Albumin Ur Specific [place] Urine Blood Urine RBC U Random Total Protein Random Vancomycin COVID-19 (JOSE ALBERTO) Crossmatch 06/23/21 06/23/21 06/24/21 15:47 19:51 00:01 WBC RBC Hgb Hct MCHC RDW Plt Count Immature Gran % (Auto) Neut % (Auto) Lymph % (Auto) [place] % (Auto) Eos % (Auto) Lymph # (Auto) [place] # (Auto) Eos # (Auto) Abs Immat Gran (auto) Absolute Neuts (auto) Absolute Nucleated RBC Nucleated RBC % (auto) Neutrophils % (Manual) Band Neutrophils % Lymphocytes % (Manual) Abs Neuts (Manual) Lymphocytes # (Manual) Monocytes # (Manual) PT INR PTT (Heparin Protocol) VBG pH VBG HCO3 Sodium Potassium Chloride Carbon Dioxide Anion Gap BUN Creatinine POC Glucose 184 H 172 H 184 H Random Glucose Lactic Acid Calcium Phosphorus Magnesium Iron TIBC Ferritin Direct Bilirubin AST ALT Lactate Dehydrogenase Troponin I High Sens C-Reactive Protein B-Natriuretic Peptide Total Protein Albumin Ur Specific [place] Urine Blood Urine RBC U Random Total Protein Random Vancomycin COVID-19 (JOSE ALBERTO) Crossmatch 06/24/21 06/24/21 06/24/21 06:33 06:33 08:06 WBC 17.0 H RBC 2.70 L Hgb 7.9 L Hct 25.9 L MCHC 30.5 L RDW 17.1 H Plt Count Immature Gran % (Auto) Neut % (Auto) Lymph % (Auto) [place] % (Auto) Eos % (Auto) Lymph # (Auto) [place] # (Auto) Eos # (Auto) Abs Immat Gran (auto) Absolute Neuts (auto) Absolute Nucleated RBC Nucleated RBC % (auto) Neutrophils % (Manual) Band Neutrophils % Lymphocytes % (Manual) Abs Neuts (Manual) Lymphocytes # (Manual) Monocytes # (Manual) PT INR PTT (Heparin Protocol) VBG pH VBG HCO3 Sodium Potassium Chloride Carbon Dioxide Anion Gap BUN 81 H Creatinine 1.74 H POC Glucose 236 H Random Glucose 241 H Lactic Acid Calcium Phosphorus Magnesium Iron TIBC Ferritin Direct Bilirubin AST ALT Lactate Dehydrogenase Troponin I High Sens C-Reactive Protein B-Natriuretic Peptide Total Protein Albumin Ur Specific [place] Urine Blood Urine RBC U Random Total Protein Random Vancomycin COVID-19 (JOSE ALBERTO) Crossmatch 06/24/21 06/24/21 06/24/21 11:18 16:57 17:30 WBC RBC Hgb Hct MCHC RDW Plt Count Immature Gran % (Auto) Neut % (Auto) Lymph % (Auto) Cassia % (Auto) Eos % (Auto) Lymph # (Auto) Cassia # (Auto) Eos # (Auto) Abs Immat Gran (auto) Absolute Neuts (auto) Absolute Nucleated RBC Nucleated RBC % (auto) Neutrophils % (Manual) Band Neutrophils % Lymphocytes % (Manual) Abs Neuts (Manual) Lymphocytes # (Manual) Monocytes # (Manual) PT INR PTT (Heparin Protocol) VBG pH VBG HCO3 Sodium Potassium Chloride Carbon Dioxide Anion Gap BUN Creatinine POC Glucose 230 H 182 H Random Glucose Lactic Acid Calcium Phosphorus Magnesium Iron TIBC Ferritin Direct Bilirubin AST ALT Lactate Dehydrogenase Troponin I High Sens C-Reactive Protein B-Natriuretic Peptide Total Protein Albumin Ur Specific [place] Urine Blood 1+ H Urine RBC 10-14 H U Random Total Protein Random Vancomycin COVID-19 (JOSE ALBERTO) Crossmatch 06/24/21 06/25/21 06/25/21 20:06 06:13 07:48 WBC RBC Hgb Hct MCHC RDW Plt Count Immature Gran % (Auto) Neut % (Auto) Lymph % (Auto) Cassia % (Auto) Eos % (Auto) Lymph # (Auto) Cassia # (Auto) Eos # (Auto) Abs Immat Gran (auto) Absolute Neuts (auto) Absolute Nucleated RBC Nucleated RBC % (auto) Neutrophils % (Manual) Band Neutrophils % Lymphocytes % (Manual) Abs Neuts (Manual) Lymphocytes # (Manual) Monocytes # (Manual) PT INR PTT (Heparin Protocol) VBG pH VBG HCO3 Sodium 146 H Potassium Chloride Carbon Dioxide Anion Gap BUN 83 H Creatinine 1.58 H POC Glucose 180 H 196 H Random Glucose 199 H Lactic Acid Calcium Phosphorus Magnesium 2.7 H Iron TIBC Ferritin Direct Bilirubin AST ALT Lactate Dehydrogenase Troponin I High Sens C-Reactive Protein B-Natriuretic Peptide Total Protein Albumin Ur Specific [place] Urine Blood Urine RBC U Random Total Protein Random Vancomycin COVID-19 (JOSE ALBERTO) Crossmatch 06/25/21 06/25/21 06/25/21 11:05 16:37 20:23 WBC RBC Hgb Hct MCHC RDW Plt Count Immature Gran % (Auto) Neut % (Auto) Lymph % (Auto) Cassia % (Auto) Eos % (Auto) Lymph # (Auto) Cassia # (Auto) Eos # (Auto) Abs Immat Gran (auto) Absolute Neuts (auto) Absolute Nucleated RBC Nucleated RBC % (auto) Neutrophils % (Manual) Band Neutrophils % Lymphocytes % (Manual) Abs Neuts (Manual) Lymphocytes # (Manual) Monocytes # (Manual) PT INR PTT (Heparin Protocol) VBG pH VBG HCO3 Sodium Potassium Chloride Carbon Dioxide Anion Gap BUN Creatinine POC Glucose 189 H 139 H 143 H Random Glucose Lactic Acid Calcium Phosphorus Magnesium Iron TIBC Ferritin Direct Bilirubin AST ALT Lactate Dehydrogenase Troponin I High Sens C-Reactive Protein B-Natriuretic Peptide Total Protein Albumin Ur Specific [place] Urine Blood Urine RBC U Random Total Protein Random Vancomycin COVID-19 (JOSE ALBERTO) Crossmatch 06/26/21 06/26/21 06/26/21 06:16 06:16 06:16 WBC 16.6 H RBC 2.85 L Hgb 8.6 L Hct 27.3 L MCHC RDW 17.0 H Plt Count Immature Gran % (Auto) Neut % (Auto) Lymph % (Auto) Cassia % (Auto) Eos % (Auto) Lymph # (Auto) [place]ia # (Auto) Eos # (Auto) Abs Immat Gran (auto) Absolute Neuts (auto) Absolute Nucleated RBC 0.040 H Nucleated RBC % (auto) Neutrophils % (Manual) Band Neutrophils % Lymphocytes % (Manual) Abs Neuts (Manual) Lymphocytes # (Manual) Monocytes # (Manual) PT INR PTT (Heparin Protocol) VBG pH VBG HCO3 Sodium 146 H Potassium Chloride Carbon Dioxide Anion Gap 22 H BUN 84 H Creatinine 1.57 H POC Glucose Random Glucose 227 H Lactic Acid Calcium Phosphorus Magnesium Iron TIBC Ferritin Direct Bilirubin AST ALT Lactate Dehydrogenase Troponin I High Sens C-Reactive Protein B-Natriuretic Peptide 2211 H Total Protein Albumin Ur Specific [place] Urine Blood Urine RBC U Random Total Protein Random Vancomycin COVID-19 (JOSE ALBERTO) Crossmatch 06/26/21 06/26/21 06/26/21 06:20 10:57 16:42 WBC RBC Hgb Hct MCHC RDW Plt Count Immature Gran % (Auto) Neut % (Auto) Lymph % (Auto) Cassia % (Auto) Eos % (Auto) Lymph # (Auto) [place]ia # (Auto) Eos # (Auto) Abs Immat Gran (auto) Absolute Neuts (auto) Absolute Nucleated RBC Nucleated RBC % (auto) Neutrophils % (Manual) Band Neutrophils % Lymphocytes % (Manual) Abs Neuts (Manual) Lymphocytes # (Manual) Monocytes # (Manual) PT INR PTT (Heparin Protocol) VBG pH VBG HCO3 Sodium Potassium Chloride Carbon Dioxide Anion Gap BUN Creatinine POC Glucose 205 H 229 H 194 H Random Glucose Lactic Acid Calcium Phosphorus Magnesium Iron TIBC Ferritin Direct Bilirubin AST ALT Lactate Dehydrogenase Troponin I High Sens C-Reactive Protein B-Natriuretic Peptide Total Protein Albumin Ur Specific [place] Urine Blood Urine RBC U Random Total Protein Random Vancomycin COVID-19 (JOSE ALBERTO) Crossmatch 06/26/21 06/27/21 06/27/21 19:48 00:29 06:16 WBC RBC Hgb Hct MCHC RDW Plt Count Immature Gran % (Auto) Neut % (Auto) Lymph % (Auto) Cassia % (Auto) Eos % (Auto) Lymph # (Auto) [place]ia # (Auto) Eos # (Auto) Abs Immat Gran (auto) Absolute Neuts (auto) Absolute Nucleated RBC Nucleated RBC % (auto) Neutrophils % (Manual) Band Neutrophils % Lymphocytes % (Manual) Abs Neuts (Manual) Lymphocytes # (Manual) Monocytes # (Manual) PT INR PTT (Heparin Protocol) VBG pH VBG HCO3 Sodium Potassium Chloride Carbon Dioxide Anion Gap BUN Creatinine POC Glucose 220 H 185 H 189 H Random Glucose Lactic Acid Calcium Phosphorus Magnesium Iron TIBC Ferritin Direct Bilirubin AST ALT Lactate Dehydrogenase Troponin I High Sens C-Reactive Protein B-Natriuretic Peptide Total Protein Albumin Ur Specific [place] Urine Blood Urine RBC U Random Total Protein Random Vancomycin COVID-19 (JOSE ALBERTO) Crossmatch 06/27/21 06/27/21 06/27/21 07:22 11:00 16:00 WBC RBC Hgb Hct MCHC RDW Plt Count Immature Gran % (Auto) Neut % (Auto) Lymph % (Auto) Cassia % (Auto) Eos % (Auto) Lymph # (Auto) [place]ia # (Auto) Eos # (Auto) Abs Immat Gran (auto) Absolute Neuts (auto) Absolute Nucleated RBC Nucleated RBC % (auto) Neutrophils % (Manual) Band Neutrophils % Lymphocytes % (Manual) Abs Neuts (Manual) Lymphocytes # (Manual) Monocytes # (Manual) PT INR PTT (Heparin Protocol) VBG pH VBG HCO3 Sodium Potassium Chloride Carbon Dioxide Anion Gap BUN Creatinine POC Glucose 210 H 215 H 188 H Random Glucose Lactic Acid Calcium Phosphorus Magnesium Iron TIBC Ferritin Direct Bilirubin AST ALT Lactate Dehydrogenase Troponin I High Sens C-Reactive Protein B-Natriuretic Peptide Total Protein Albumin Ur Specific [place] Urine Blood Urine RBC U Random Total Protein Random Vancomycin COVID-19 (JOSE ALBERTO) Crossmatch 06/27/21 06/28/21 06/28/21 19:49 00:40 07:26 WBC RBC Hgb Hct MCHC RDW Plt Count Immature Gran % (Auto) Neut % (Auto) Lymph % (Auto) Cassia % (Auto) Eos % (Auto) Lymph # (Auto) [place]ia # (Auto) Eos # (Auto) Abs Immat Gran (auto) Absolute Neuts (auto) Absolute Nucleated RBC Nucleated RBC % (auto) Neutrophils % (Manual) Band Neutrophils % Lymphocytes % (Manual) Abs Neuts (Manual) Lymphocytes # (Manual) Monocytes # (Manual) PT INR PTT (Heparin Protocol) VBG pH VBG HCO3 Sodium Potassium Chloride Carbon Dioxide Anion Gap BUN Creatinine POC Glucose 163 H 147 H 162 H Random Glucose Lactic Acid Calcium Phosphorus Magnesium Iron TIBC Ferritin Direct Bilirubin AST ALT Lactate Dehydrogenase Troponin I High Sens C-Reactive Protein B-Natriuretic Peptide Total Protein Albumin Ur Specific [place] Urine Blood Urine RBC U Random Total Protein Random Vancomycin COVID-19 (JOSE ALBERTO) Crossmatch 06/28/21 06/28/21 06/28/21 08:03 08:03 08:03 WBC 17.2 H RBC 2.72 L Hgb 8.1 L Hct 26.2 L MCHC 30.9 L RDW 17.8 H Plt Count Immature Gran % (Auto) Neut % (Auto) Lymph % (Auto) Cassia % (Auto) Eos % (Auto) Lymph # (Auto) [place]ia # (Auto) Eos # (Auto) Abs Immat Gran (auto) Absolute Neuts (auto) Absolute Nucleated RBC 0.030 H Nucleated RBC % (auto) Neutrophils % (Manual) Band Neutrophils % Lymphocytes % (Manual) Abs Neuts (Manual) Lymphocytes # (Manual) Monocytes # (Manual) PT INR PTT (Heparin Protocol) VBG pH VBG HCO3 Sodium 147 H Potassium 3.2 L Chloride Carbon Dioxide Anion Gap BUN 77 H Creatinine 1.52 H POC Glucose Random Glucose 186 H Lactic Acid Calcium Phosphorus Magnesium Iron TIBC Ferritin Direct Bilirubin AST ALT Lactate Dehydrogenase Troponin I High Sens C-Reactive Protein B-Natriuretic Peptide 2334 H Total Protein Albumin Ur Specific [place] Urine Blood Urine RBC U Random Total Protein Random Vancomycin COVID-19 (JOSE ALBERTO) Crossmatch 06/28/21 06/28/21 06/28/21 16:09 19:59 19:59 WBC RBC Hgb Hct MCHC RDW Plt Count Immature Gran % (Auto) Neut % (Auto) Lymph % (Auto) Cassia % (Auto) Eos % (Auto) Lymph # (Auto) [place]ia # (Auto) Eos # (Auto) Abs Immat Gran (auto) Absolute Neuts (auto) Absolute Nucleated RBC Nucleated RBC % (auto) Neutrophils % (Manual) Band Neutrophils % Lymphocytes % (Manual) Abs Neuts (Manual) Lymphocytes # (Manual) Monocytes # (Manual) PT INR PTT (Heparin Protocol) VBG pH VBG HCO3 Sodium 147 H Potassium Chloride Carbon Dioxide Anion Gap 22 H BUN 73 H Creatinine 1.64 H POC Glucose 184 H Random Glucose 236 H Lactic Acid Calcium Phosphorus Magnesium Iron TIBC Ferritin Direct Bilirubin AST ALT Lactate Dehydrogenase Troponin I High Sens 755.4 H* D C-Reactive Protein B-Natriuretic Peptide 2615 H Total Protein Albumin Ur Specific [place] Urine Blood Urine RBC U Random Total Protein Random Vancomycin COVID-19 (JOSE ALBERTO) Crossmatch 06/28/21 06/28/21 06/28/21 20:13 22:24 22:24 WBC 16.1 H RBC 2.65 L Hgb 7.9 L Hct 25.8 L MCHC 30.6 L RDW 17.9 H Plt Count Immature Gran % (Auto) 2.4 H Neut % (Auto) 87.6 H Lymph % (Auto) 4.9 L Cassia % (Auto) Eos % (Auto) Lymph # (Auto) 0.8 L [place] # (Auto) Eos # (Auto) Abs Immat Gran (auto) 0.39 H Absolute Neuts (auto) 14.1 H Absolute Nucleated RBC 0.020 H Nucleated RBC % (auto) Neutrophils % (Manual) Band Neutrophils % Lymphocytes % (Manual) Abs Neuts (Manual) Lymphocytes # (Manual) Monocytes # (Manual) PT INR PTT (Heparin Protocol) VBG pH VBG HCO3 Sodium Potassium Chloride Carbon Dioxide Anion Gap BUN Creatinine POC Glucose 220 H Random Glucose Lactic Acid Calcium Phosphorus Magnesium Iron TIBC Ferritin Direct Bilirubin AST ALT Lactate Dehydrogenase Troponin I High Sens 838.7 H* C-Reactive Protein B-Natriuretic Peptide Total Protein Albumin Ur Specific [place] Urine Blood Urine RBC U Random Total Protein Random Vancomycin COVID-19 (JOSE ALBERTO) Crossmatch 06/29/21 06/29/21 06/29/21 01:49 07:13 07:13 WBC 18.9 H RBC 2.70 L Hgb 8.1 L Hct 26.2 L MCHC 30.9 L RDW 17.9 H Plt Count Immature Gran % (Auto) 2.6 H Neut % (Auto) 83.5 H Lymph % (Auto) 5.0 L Cassia % (Auto) Eos % (Auto) 4.8 H Lymph # (Auto) 0.9 L [place]ia # (Auto) Eos # (Auto) 0.9 H Abs Immat Gran (auto) 0.50 H Absolute Neuts (auto) 15.8 H Absolute Nucleated RBC 0.050 H Nucleated RBC % (auto) 0.3 H Neutrophils % (Manual) Band Neutrophils % Lymphocytes % (Manual) Abs Neuts (Manual) Lymphocytes # (Manual) Monocytes # (Manual) PT INR PTT (Heparin Protocol) VBG pH VBG HCO3 Sodium Potassium Chloride Carbon Dioxide Anion Gap BUN 70 H Creatinine 1.52 H POC Glucose Random Glucose 190 H Lactic Acid Calcium Phosphorus Magnesium Iron 40 L TIBC 166 L Ferritin 1837 H Direct Bilirubin AST ALT Lactate Dehydrogenase Troponin I High Sens 777.3 H* C-Reactive Protein B-Natriuretic Peptide Total Protein Albumin Ur Specific [place] Urine Blood Urine RBC U Random Total Protein Random Vancomycin COVID-19 (JOSE ALBERTO) Crossmatch 06/29/21 06/29/21 06/29/21 07:22 11:24 14:32 WBC RBC Hgb Hct MCHC RDW Plt Count Immature Gran % (Auto) Neut % (Auto) Lymph % (Auto) [place]ia % (Auto) Eos % (Auto) Lymph # (Auto) Cassia # (Auto) Eos # (Auto) Abs Immat Gran (auto) Absolute Neuts (auto) Absolute Nucleated RBC Nucleated RBC % (auto) Neutrophils % (Manual) Band Neutrophils % Lymphocytes % (Manual) Abs Neuts (Manual) Lymphocytes # (Manual) Monocytes # (Manual) PT INR PTT (Heparin Protocol) VBG pH VBG HCO3 30 H Sodium Potassium Chloride Carbon Dioxide Anion Gap BUN Creatinine POC Glucose 191 H 222 H Random Glucose Lactic Acid Calcium Phosphorus Magnesium Iron TIBC Ferritin Direct Bilirubin AST ALT Lactate Dehydrogenase Troponin I High Sens C-Reactive Protein B-Natriuretic Peptide Total Protein Albumin Ur Specific [place] Urine Blood Urine RBC U Random Total Protein Random Vancomycin COVID-19 (JOSE ALBERTO) Crossmatch 06/29/21 06/29/21 06/29/21 14:35 14:36 14:36 WBC 18.7 H RBC 2.56 L Hgb 7.6 L Hct 24.9 L MCHC 30.5 L RDW 18.0 H Plt Count Immature Gran % (Auto) Neut % (Auto) Lymph % (Auto) Cassia % (Auto) Eos % (Auto) Lymph # (Auto) [place]ia # (Auto) Eos # (Auto) Abs Immat Gran (auto) Absolute Neuts (auto) Absolute Nucleated RBC 0.040 H Nucleated RBC % (auto) Neutrophils % (Manual) Band Neutrophils % Lymphocytes % (Manual) Abs Neuts (Manual) Lymphocytes # (Manual) Monocytes # (Manual) PT INR PTT (Heparin Protocol) VBG pH VBG HCO3 Sodium Potassium Chloride Carbon Dioxide Anion Gap BUN 69 H Creatinine 1.65 H POC Glucose Random Glucose 259 H D Lactic Acid Calcium Phosphorus Magnesium Iron TIBC Ferritin Direct Bilirubin AST ALT Lactate Dehydrogenase Troponin I High Sens 724.7 H* C-Reactive Protein B-Natriuretic Peptide 2469 H Total Protein 5.7 L Albumin 2.9 L Ur Specific [place] Urine Blood Urine RBC U Random Total Protein Random Vancomycin COVID-19 (JOSE ALBERTO) Crossmatch 06/29/21 06/29/21 06/29/21 16:08 18:32 18:32 WBC 16.3 H RBC 2.45 L Hgb 7.4 L Hct 23.7 L MCHC RDW 18.0 H Plt Count Immature Gran % (Auto) Neut % (Auto) Lymph % (Auto) Cassia % (Auto) Eos % (Auto) Lymph # (Auto) Cassia # (Auto) Eos # (Auto) Abs Immat Gran (auto) Absolute Neuts (auto) Absolute Nucleated RBC 0.070 H Nucleated RBC % (auto) 0.4 H Neutrophils % (Manual) Band Neutrophils % Lymphocytes % (Manual) Abs Neuts (Manual) Lymphocytes # (Manual) Monocytes # (Manual) PT 14.5 H INR 1.3 H PTT (Heparin Protocol) 26.0 L VBG pH VBG HCO3 Sodium Potassium Chloride Carbon Dioxide Anion Gap BUN Creatinine POC Glucose 225 H Random Glucose Lactic Acid Calcium Phosphorus Magnesium Iron TIBC Ferritin Direct Bilirubin AST ALT Lactate Dehydrogenase Troponin I High Sens C-Reactive Protein B-Natriuretic Peptide Total Protein Albumin Ur Specific [place] Urine Blood Urine RBC U Random Total Protein Random Vancomycin COVID-19 (JOSE ALBERTO) Crossmatch 06/29/21 06/29/21 06/29/21 19:08 20:31 20:34 WBC RBC Hgb Hct MCHC RDW Plt Count Immature Gran % (Auto) Neut % (Auto) Lymph % (Auto) [place]ia % (Auto) Eos % (Auto) Lymph # (Auto) [place]ia # (Auto) Eos # (Auto) Abs Immat Gran (auto) Absolute Neuts (auto) Absolute Nucleated RBC Nucleated RBC % (auto) Neutrophils % (Manual) Band Neutrophils % Lymphocytes % (Manual) Abs Neuts (Manual) Lymphocytes # (Manual) Monocytes # (Manual) PT INR PTT (Heparin Protocol) VBG pH VBG HCO3 Sodium Potassium Chloride Carbon Dioxide Anion Gap BUN Creatinine POC Glucose 215 H Random Glucose Lactic Acid Calcium Phosphorus Magnesium Iron TIBC Ferritin Direct Bilirubin AST ALT Lactate Dehydrogenase Troponin I High Sens C-Reactive Protein B-Natriuretic Peptide Total Protein Albumin Ur Specific [place] Urine Blood 3+ H Urine RBC 15-29 H U Random Total Protein Random Vancomycin COVID-19 (JOSE ALBERTO) Crossmatch See Detail 06/30/21 06/30/21 06/30/21 05:24 05:24 05:25 WBC 16.1 H RBC 2.59 L Hgb 7.6 L Hct 24.3 L MCHC RDW 19.1 H Plt Count Immature Gran % (Auto) Neut % (Auto) Lymph % (Auto) [place]ia % (Auto) Eos % (Auto) Lymph # (Auto) [place]ia # (Auto) Eos # (Auto) Abs Immat Gran (auto) Absolute Neuts (auto) Absolute Nucleated RBC 0.080 H Nucleated RBC % (auto) 0.5 H Neutrophils % (Manual) Band Neutrophils % Lymphocytes % (Manual) Abs Neuts (Manual) Lymphocytes # (Manual) Monocytes # (Manual) PT INR PTT (Heparin Protocol) VBG pH VBG HCO3 Sodium 148 H Potassium Chloride Carbon Dioxide Anion Gap BUN 77 H Creatinine 2.01 H POC Glucose Random Glucose 193 H Lactic Acid Calcium 8.2 L Phosphorus Magnesium Iron TIBC Ferritin Direct Bilirubin AST ALT Lactate Dehydrogenase Troponin I High Sens 988.4 H* C-Reactive Protein B-Natriuretic Peptide Total Protein Albumin Ur Specific [place] Urine Blood Urine RBC U Random Total Protein Random Vancomycin COVID-19 (JOSE ALBERTO) Crossmatch 06/30/21 06/30/21 06/30/21 05:34 07:00 07:21 WBC RBC Hgb Hct MCHC RDW Plt Count Immature Gran % (Auto) Neut % (Auto) Lymph % (Auto) [place]ia % (Auto) Eos % (Auto) Lymph # (Auto) [place]ia # (Auto) Eos # (Auto) Abs Immat Gran (auto) Absolute Neuts (auto) Absolute Nucleated RBC Nucleated RBC % (auto) Neutrophils % (Manual) Band Neutrophils % Lymphocytes % (Manual) Abs Neuts (Manual) Lymphocytes # (Manual) Monocytes # (Manual) PT INR PTT (Heparin Protocol) 51.1 L VBG pH 7.48 H VBG HCO3 27 H Sodium Potassium Chloride Carbon Dioxide Anion Gap BUN Creatinine POC Glucose 193 H Random Glucose Lactic Acid Calcium Phosphorus Magnesium Iron TIBC Ferritin Direct Bilirubin AST ALT Lactate Dehydrogenase Troponin I High Sens C-Reactive Protein B-Natriuretic Peptide Total Protein Albumin Ur Specific [place] Urine Blood Urine RBC U Random Total Protein Random Vancomycin COVID-19 (JOSE ALBERTO) Crossmatch 06/30/21 06/30/21 06/30/21 11:18 16:13 16:48 WBC RBC Hgb Hct MCHC RDW Plt Count Immature Gran % (Auto) Neut % (Auto) Lymph % (Auto) [place]ia % (Auto) Eos % (Auto) Lymph # (Auto) [place]ia # (Auto) Eos # (Auto) Abs Immat Gran (auto) Absolute Neuts (auto) Absolute Nucleated RBC Nucleated RBC % (auto) Neutrophils % (Manual) Band Neutrophils % Lymphocytes % (Manual) Abs Neuts (Manual) Lymphocytes # (Manual) Monocytes # (Manual) PT INR PTT (Heparin Protocol) 25.0 L D VBG pH VBG HCO3 Sodium Potassium Chloride Carbon Dioxide Anion Gap BUN Creatinine POC Glucose 206 H 193 H Random Glucose Lactic Acid Calcium Phosphorus Magnesium Iron TIBC Ferritin Direct Bilirubin AST ALT Lactate Dehydrogenase Troponin I High Sens C-Reactive Protein B-Natriuretic Peptide Total Protein Albumin Ur Specific [place] Urine Blood Urine RBC U Random Total Protein Random Vancomycin COVID-19 (JOSE ALBERTO) Crossmatch 06/30/21 06/30/21 06/30/21 16:48 16:48 21:19 WBC RBC Hgb 9.1 L Hct 28.1 L MCHC RDW Plt Count Immature Gran % (Auto) Neut % (Auto) Lymph % (Auto) [place]ia % (Auto) Eos % (Auto) Lymph # (Auto) [place]ia # (Auto) Eos # (Auto) Abs Immat Gran (auto) Absolute Neuts (auto) Absolute Nucleated RBC Nucleated RBC % (auto) Neutrophils % (Manual) Band Neutrophils % Lymphocytes % (Manual) Abs Neuts (Manual) Lymphocytes # (Manual) Monocytes # (Manual) PT INR PTT (Heparin Protocol) VBG pH VBG HCO3 Sodium 148 H Potassium Chloride Carbon Dioxide Anion Gap BUN 73 H Creatinine 2.17 H POC Glucose 192 H Random Glucose 195 H Lactic Acid Calcium 8.1 L Phosphorus Magnesium Iron TIBC Ferritin Direct Bilirubin AST ALT Lactate Dehydrogenase Troponin I High Sens C-Reactive Protein B-Natriuretic Peptide Total Protein Albumin Ur Specific [place] Urine Blood Urine RBC U Random Total Protein Random Vancomycin COVID-19 (JOSE ALBERTO) Crossmatch 07/01/21 07/01/21 07/01/21 05:28 05:28 05:30 WBC 17.9 H RBC 3.13 L D Hgb 9.3 L Hct 29.1 L MCHC RDW 18.7 H Plt Count Immature Gran % (Auto) 3.8 H Neut % (Auto) 79.1 H Lymph % (Auto) 4.9 L [place]ia % (Auto) Eos % (Auto) 7.3 H Lymph # (Auto) 0.9 L [place] # (Auto) Eos # (Auto) 1.3 H Abs Immat Gran (auto) 0.68 H Absolute Neuts (auto) 14.2 H Absolute Nucleated RBC 0.080 H Nucleated RBC % (auto) 0.4 H Neutrophils % (Manual) Band Neutrophils % Lymphocytes % (Manual) Abs Neuts (Manual) Lymphocytes # (Manual) Monocytes # (Manual) PT INR PTT (Heparin Protocol) VBG pH 7.54 H VBG HCO3 Sodium 149 H Potassium Chloride Carbon Dioxide Anion Gap BUN 76 H Creatinine 2.21 H POC Glucose Random Glucose 182 H Lactic Acid Calcium 8.2 L Phosphorus Magnesium Iron TIBC Ferritin Direct Bilirubin AST ALT Lactate Dehydrogenase Troponin I High Sens C-Reactive Protein B-Natriuretic Peptide Total Protein 5.4 L Albumin 2.7 L Ur Specific [place] Urine Blood Urine RBC U Random Total Protein Random Vancomycin COVID-19 (JOSE ALBERTO) Crossmatch 07/01/21 07/01/21 07/01/21 07:08 11:26 14:40 WBC RBC Hgb Hct MCHC RDW Plt Count Immature Gran % (Auto) Neut % (Auto) Lymph % (Auto) [place]ia % (Auto) Eos % (Auto) Lymph # (Auto) [place]ia # (Auto) Eos # (Auto) Abs Immat Gran (auto) Absolute Neuts (auto) Absolute Nucleated RBC Nucleated RBC % (auto) Neutrophils % (Manual) Band Neutrophils % Lymphocytes % (Manual) Abs Neuts (Manual) Lymphocytes # (Manual) Monocytes # (Manual) PT INR PTT (Heparin Protocol) VBG pH 7.44 H VBG HCO3 29 H Sodium Potassium Chloride Carbon Dioxide Anion Gap BUN Creatinine POC Glucose 169 H 205 H Random Glucose Lactic Acid Calcium Phosphorus Magnesium Iron TIBC Ferritin Direct Bilirubin AST ALT Lactate Dehydrogenase Troponin I High Sens C-Reactive Protein B-Natriuretic Peptide Total Protein Albumin Ur Specific [place] Urine Blood Urine RBC U Random Total Protein Random Vancomycin COVID-19 (JOSE ALBERTO) Crossmatch 07/01/21 07/01/21 07/01/21 16:27 16:50 21:25 WBC RBC Hgb Hct MCHC RDW Plt Count Immature Gran % (Auto) Neut % (Auto) Lymph % (Auto) [place]ia % (Auto) Eos % (Auto) Lymph # (Auto) [place]ia # (Auto) Eos # (Auto) Abs Immat Gran (auto) Absolute Neuts (auto) Absolute Nucleated RBC Nucleated RBC % (auto) Neutrophils % (Manual) Band Neutrophils % Lymphocytes % (Manual) Abs Neuts (Manual) Lymphocytes # (Manual) Monocytes # (Manual) PT INR PTT (Heparin Protocol) VBG pH VBG HCO3 Sodium 150 H Potassium Chloride Carbon Dioxide Anion Gap BUN 73 H Creatinine 2.29 H POC Glucose 172 H 182 H Random Glucose 177 H Lactic Acid Calcium Phosphorus Magnesium Iron TIBC Ferritin Direct Bilirubin AST ALT Lactate Dehydrogenase Troponin I High Sens C-Reactive Protein B-Natriuretic Peptide Total Protein Albumin Ur Specific [place] Urine Blood Urine RBC U Random Total Protein Random Vancomycin COVID-19 (JOSE ALBERTO) Crossmatch 07/02/21 07/02/21 07/02/21 05:25 05:25 05:25 WBC 21.5 H RBC 3.33 L Hgb 9.8 L Hct 31.2 L MCHC RDW 18.6 H Plt Count Immature Gran % (Auto) 2.9 H Neut % (Auto) 82.7 H Lymph % (Auto) 3.5 L [place] % (Auto) Eos % (Auto) 5.9 H Lymph # (Auto) 0.8 L [place] # (Auto) Eos # (Auto) 1.3 H Abs Immat Gran (auto) 0.63 H Absolute Neuts (auto) 17.8 H Absolute Nucleated RBC 0.060 H Nucleated RBC % (auto) 0.3 H Neutrophils % (Manual) Band Neutrophils % Lymphocytes % (Manual) Abs Neuts (Manual) Lymphocytes # (Manual) Monocytes # (Manual) PT INR PTT (Heparin Protocol) VBG pH VBG HCO3 Sodium 148 H Potassium Chloride Carbon Dioxide Anion Gap BUN 72 H Creatinine 2.13 H POC Glucose Random Glucose 231 H Lactic Acid Calcium Phosphorus Magnesium Iron TIBC Ferritin Direct Bilirubin AST ALT Lactate Dehydrogenase Troponin I High Sens 480.1 H* D C-Reactive Protein B-Natriuretic Peptide Total Protein 5.8 L Albumin 3.0 L Ur Specific [place] Urine Blood Urine RBC U Random Total Protein Random Vancomycin COVID-19 (JOSE ALBERTO) Crossmatch 07/02/21 07/02/21 07/02/21 05:28 07:23 10:37 WBC RBC Hgb Hct MCHC RDW Plt Count Immature Gran % (Auto) Neut % (Auto) Lymph % (Auto) [place] % (Auto) Eos % (Auto) Lymph # (Auto) [place]ia # (Auto) Eos # (Auto) Abs Immat Gran (auto) Absolute Neuts (auto) Absolute Nucleated RBC Nucleated RBC % (auto) Neutrophils % (Manual) Band Neutrophils % Lymphocytes % (Manual) Abs Neuts (Manual) Lymphocytes # (Manual) Monocytes # (Manual) PT INR PTT (Heparin Protocol) VBG pH VBG HCO3 30 H Sodium Potassium Chloride Carbon Dioxide Anion Gap BUN Creatinine POC Glucose 223 H Random Glucose Lactic Acid Calcium Phosphorus Magnesium Iron TIBC Ferritin Direct Bilirubin AST ALT Lactate Dehydrogenase Troponin I High Sens C-Reactive Protein B-Natriuretic Peptide 2829 H Total Protein Albumin Ur Specific [place] Urine Blood Urine RBC U Random Total Protein Random Vancomycin COVID-19 (JOSE ALBERTO) Crossmatch 07/02/21 07/02/21 07/02/21 11:08 15:45 16:22 WBC RBC Hgb Hct MCHC RDW Plt Count Immature Gran % (Auto) Neut % (Auto) Lymph % (Auto) [place] % (Auto) Eos % (Auto) Lymph # (Auto) [place]ia # (Auto) Eos # (Auto) Abs Immat Gran (auto) Absolute Neuts (auto) Absolute Nucleated RBC Nucleated RBC % (auto) Neutrophils % (Manual) Band Neutrophils % Lymphocytes % (Manual) Abs Neuts (Manual) Lymphocytes # (Manual) Monocytes # (Manual) PT INR PTT (Heparin Protocol) VBG pH VBG HCO3 Sodium 146 H Potassium Chloride Carbon Dioxide Anion Gap BUN 69 H Creatinine 2.16 H POC Glucose 219 H 221 H Random Glucose 240 H Lactic Acid Calcium Phosphorus Magnesium Iron TIBC Ferritin Direct Bilirubin AST ALT Lactate Dehydrogenase Troponin I High Sens C-Reactive Protein B-Natriuretic Peptide Total Protein Albumin Ur Specific [place] Urine Blood Urine RBC U Random Total Protein Random Vancomycin COVID-19 (JOSE ALBERTO) Crossmatch 07/02/21 07/03/21 07/03/21 20:44 05:10 05:10 WBC 18.3 H RBC 3.15 L Hgb 9.2 L Hct 30.0 L MCHC 30.7 L RDW 19.1 H Plt Count 146 L Immature Gran % (Auto) 2.2 H Neut % (Auto) 82.5 H Lymph % (Auto) 4.0 L Cassia % (Auto) Eos % (Auto) 5.7 H Lymph # (Auto) 0.7 L Cassia # (Auto) Eos # (Auto) 1.0 H Abs Immat Gran (auto) 0.41 H Absolute Neuts (auto) 15.1 H Absolute Nucleated RBC 0.050 H Nucleated RBC % (auto) 0.3 H Neutrophils % (Manual) Band Neutrophils % Lymphocytes % (Manual) Abs Neuts (Manual) Lymphocytes # (Manual) Monocytes # (Manual) PT INR PTT (Heparin Protocol) VBG pH VBG HCO3 Sodium Potassium Chloride Carbon Dioxide Anion Gap BUN 70 H Creatinine 2.13 H POC Glucose 215 H Random Glucose 230 H Lactic Acid Calcium 8.2 L Phosphorus Magnesium Iron TIBC Ferritin Direct Bilirubin AST ALT Lactate Dehydrogenase Troponin I High Sens C-Reactive Protein B-Natriuretic Peptide Total Protein 5.5 L Albumin 2.8 L Ur Specific [place] Urine Blood Urine RBC U Random Total Protein Random Vancomycin COVID-19 (JOSE ALBERTO) Crossmatch 07/03/21 07/03/21 07/03/21 05:13 07:39 11:43 WBC RBC Hgb Hct MCHC RDW Plt Count Immature Gran % (Auto) Neut % (Auto) Lymph % (Auto) Cassia % (Auto) Eos % (Auto) Lymph # (Auto) Cassia # (Auto) Eos # (Auto) Abs Immat Gran (auto) Absolute Neuts (auto) Absolute Nucleated RBC Nucleated RBC % (auto) Neutrophils % (Manual) Band Neutrophils % Lymphocytes % (Manual) Abs Neuts (Manual) Lymphocytes # (Manual) Monocytes # (Manual) PT INR PTT (Heparin Protocol) VBG pH VBG HCO3 31 H Sodium Potassium Chloride Carbon Dioxide Anion Gap BUN Creatinine POC Glucose 234 H 233 H Random Glucose Lactic Acid Calcium Phosphorus Magnesium Iron TIBC Ferritin Direct Bilirubin AST ALT Lactate Dehydrogenase Troponin I High Sens C-Reactive Protein B-Natriuretic Peptide Total Protein Albumin Ur Specific [place] Urine Blood Urine RBC U Random Total Protein Random Vancomycin COVID-19 (JOSE ALBERTO) Crossmatch 07/03/21 07/03/21 07/04/21 16:18 20:51 08:11 WBC RBC Hgb Hct MCHC RDW Plt Count Immature Gran % (Auto) Neut % (Auto) Lymph % (Auto) Cassia % (Auto) Eos % (Auto) Lymph # (Auto) Cassia # (Auto) Eos # (Auto) Abs Immat Gran (auto) Absolute Neuts (auto) Absolute Nucleated RBC Nucleated RBC % (auto) Neutrophils % (Manual) Band Neutrophils % Lymphocytes % (Manual) Abs Neuts (Manual) Lymphocytes # (Manual) Monocytes # (Manual) PT INR PTT (Heparin Protocol) VBG pH VBG HCO3 Sodium Potassium Chloride Carbon Dioxide Anion Gap BUN Creatinine POC Glucose 162 H 145 H 206 H Random Glucose Lactic Acid Calcium Phosphorus Magnesium Iron TIBC Ferritin Direct Bilirubin AST ALT Lactate Dehydrogenase Troponin I High Sens C-Reactive Protein B-Natriuretic Peptide Total Protein Albumin Ur Specific [place] Urine Blood Urine RBC U Random Total Protein Random Vancomycin COVID-19 (JOSE ALBERTO) Crossmatch 07/04/21 10:56 WBC RBC Hgb Hct MCHC RDW Plt Count Immature Gran % (Auto) Neut % (Auto) Lymph % (Auto) Cassia % (Auto) Eos % (Auto) Lymph # (Auto) Cassia # (Auto) Eos # (Auto) Abs Immat Gran (auto) Absolute Neuts (auto) Absolute Nucleated RBC Nucleated RBC % (auto) Neutrophils % (Manual) Band Neutrophils % Lymphocytes % (Manual) Abs Neuts (Manual) Lymphocytes # (Manual) Monocytes # (Manual) PT INR PTT (Heparin Protocol) VBG pH VBG HCO3 Sodium Potassium Chloride Carbon Dioxide Anion Gap BUN Creatinine POC Glucose 219 H Random Glucose Lactic Acid Calcium Phosphorus Magnesium Iron TIBC Ferritin Direct Bilirubin AST ALT Lactate Dehydrogenase Troponin I High Sens C-Reactive Protein B-Natriuretic Peptide Total Protein Albumin Ur Specific [place] Urine Blood Urine RBC U Random Total Protein Random Vancomycin COVID-19 (JOSE ALBERTO) Crossmatch Microbiology: Microbiology 06/30/21 02:16 Sputum - Suctioned Gram Stain - Final 06/30/21 02:16 Sputum - Suctioned Sputum Culture - Final 06/29/21 15:20 Blood - Venous Blood Culture - Preliminary No growth after 48 hours. 06/29/21 15:20 Blood - Venous Blood Culture - Preliminary No growth after 48 hours. 06/29/21 20:32 Urine Catheterized - Villa Catheter Urine Culture - Final No growth. 06/19/21 14:54 Blood - Venous Blood Culture - Final No growth after 5 days. 06/19/21 14:55 Blood - Venous Blood Culture - Final No growth after 5 days. 06/09/21 17:15 Blood - Venous Blood Culture - Final Staphylococcus aureus 06/09/21 17:10 Blood - Venous Blood Culture - Final Staphylococcus aureus 06/08/21 23:11 Blood - Venous Blood Culture - Final Staphylococcus aureus 06/08/21 23:11 Blood - Venous Blood Culture - Final Staphylococcus aureus Assessment and Plan (1) Acute respiratory failure: Status: Acute (2) Acute respiratory distress syndrome (ARDS) due to COVID-19 virus: Status: Acute (3) Heart failure with preserved ejection fraction: Status: Acute Plan Continue oxygen supplementation to maintain a pulse ox of 90%. Likely could be transition to a Dhaliwal or Oxymizer pendant in the coming days Continue BiPAP at nighttime. 05/10. He will need to be set with noninvasive ventilation at nighttime. Likely will benefit by sleep study Continue with diuresis as tolerated Monitor closely imaging. Patient is currently on high doses of amiodarone and will need to monitor for any potential adverse effects in regards to his lung disease. Patient is significantly deconditioned and will need rehab. Ideally rehab back in handle noninvasive ventilation. Procedures Date of Service Date of Service: 07/04/21
[2021-07-04 16:37] LABS: Glucose, Whole Blood 152 mg/dL (60-115)
[2021-07-04 17:09] LABS: Venous Blood Gas Refer to POC result
[2021-07-04 17:11] LABS: VBG Base Excess 10.9 mmol/L; VBG HCO3 36 mmol/L (22-26); VBG pCO2 53 mmHg; VBG pH 7.44 (7.32-7.43); VBG pO2 50 mmHg
--- NOTE | 2021-07-04 17:25 | P.PNIM_ITS ---
Subjective Subjective Date of Service: 07/05/21 Interval History: patient resting comfortably on chair denies shortness of breath, later in the afternoon noted to have hypoxia with finger oximetry dropping in mid 80s therefore placed back on BiPAP Review of Systems Review of Systems: Yes all other systems are reviewed and are negative Physical Exam Verdana 4l Vital Signs: Verdana 4d Verdana 4d Vital Signs: Verdana 4d Verdana 4Bd Last Vital Signs Verdana 4d Building Services Supervisor New 4d Building Services Supervisor New 4d Temp 98.5 F 07/04/21 15:44 Building Services Supervisor New 4d Pulse 68 07/04/21 15:44 Building Services Supervisor New 4d Resp 17 07/04/21 15:44 BP 135/62 07/04/21 15:44 Pulse Ox 98 07/04/21 15:44 Oxygen Flow Rate 10 07/04/21 10:00 BMI result Body Mass Index 34.8 Const: Other: Gen:? Awake alert, no respiratory distress, able to talk in full sentences HEENT: sclera anicteric, moist mucus membranes Neck: supple,no jvd Lungs:? Coarse breath sounds, no crackles, Heart: irregular, no murmurs Abd: soft, non-tender, obese Ext: trace edema Skin: diffuse rash Neuro: awake ,alert , no focal findings Psych: appropriate affect Objective Data Active Medications Amiodarone HCl (Amiodarone Hcl 200 Mg Tablet) 400 mg PO BID [facility] Finasteride (Finasteride 5 Mg Tablet) 5 mg PO DAILY [facility] Last Admin: 06/30/21 09:05 Dose: 5 mg Documented by: BRANDON Furosemide (Furosemide 40 Mg Tablet) 40 mg PO DAILY [facility]; Protocol Last Admin: 07/04/21 12:07 Dose: 40 mg Documented by: GELY Insulin Human Lispro (Insulin Lispro 100 Unit/Ml 3 Ml Vial) 0 unit SUBCUT QIDACHS [facility]; Protocol Last Admin: 07/04/21 16:47 Dose: Not Given Documented by: GELY Non-Admin Reason: refused supper Metoprolol Tartrate (Metoprolol Tartrate 25 Mg Tablet) 75 mg PO BID [facility]; Protocol Nitroglycerin (Nitroglycerin 2 % Oint 1 Gm Packet) 0.5 inch TRANSDERMA RQ6H WHILE AWAKE [facility] Last Admin: 07/04/21 16:13 Dose: 0.5 inch Documented by: GELY Omeprazole (Omeprazole 20 Mg/10 Ml Susp.Recon) 40 mg PO BID@0630,1630 [facility] Last Admin: 07/04/21 16:14 Dose: 40 mg Documented by: GELY Sodium Chloride (0.9 % Sodium Chloride Flush 3 Ml Syringe) 3 ml IVFLUSH QSHIFT [facility] Last Admin: 07/04/21 16:17 Dose: 3 ml Documented by: GELY Labs CBC & Chem 7: 07/05/21 08:22 07/05/21 08:22 Labs: Laboratory Results - last 24 hr 07/03/21 07/04/21 07/04/21 20:51 08:11 10:56 VBG pH VBG pCO2 VBG pO2 VBG HCO3 VBG O2 Saturation VBG Base Excess POC Glucose 145 H 206 H 219 H 07/04/21 07/04/21 15:47 17:05 VBG pH 7.44 H VBG pCO2 53 VBG pO2 50 VBG HCO3 36 H VBG O2 Saturation 79.0 VBG Base Excess 10.9 POC Glucose 152 H Assessment and Plan (1) Persistent atrial fibrillation: Status: Acute (2) Heart failure with preserved ejection fraction: Status: Acute (3) Elevated brain natriuretic peptide (BNP) level: Status: Acute (4) Diabetes: Status: Acute (5) Acute respiratory distress syndrome (ARDS) due to COVID-19 virus: Status: Acute (6) Morbid obesity: Status: Acute Plan Acute resp failure question etiology multifactorial likely due to COVID/ARDS, due to congestive heart failure, obesity hypoventilation syndrome chest x-ray this morning showed bilateral infiltrates no change from July 02 exam and question small left pleural effusion, concern for amiodarone t oxicity on high-flow nasal cannula, oxygenation dropped to 80s therefore placed on BiPAP, repeat VBG showed mild increase in pCO2 patient aggressively diuresed with IV Lasix drip and Diuril in ICU will continue by mouth Lasix 40 mg daily, patient noted to have significantly elevated BNP 3316 but clinically does not appear to be in overt heart failure, persistently elevated BUN and creatinine Patient evaluated by jacquard loom carpet weaver Dr. Marshall he recommend to continue oxygen support and BiPAP at nighttime and recommended close monitoring with repeat imaging studies and also to monitor for potential adverse effect of amiodarone acute congestive heart failure with preserved EF resolved status post IV Lasix drip continue by mouth Lasix follow renal function and BNP , daily weight, I's a nd O's ,case discussed with Dr. Chan. PAfib.? In and out of afib likely cause of pulmonary edema.? will DC IV amiodarone drip and transition to by mouth amiodarone, continue metoprolol 100 m g by mouth b.i.d., DC IV Cardizem drip, status post IV heparin drip , will discuss anticoagulation with Gastroenterology due to recent history of hemorrhagic shock Elevated troponin, troponin elevated throughout hospitalization up to 988.then down to 480, echocardiogram showed no wall motion abnormality, likely atrial fibrillation causing ischemia, will need ischemic workup, status post IV heparin drip. Acute on CKD.? being followed closely by Nephrology, likely due to tubular injury, creatinine remains stable, follow BMP closely while being diuresed ?s/p GI bleed , underwent EGD 06/[address] Mae multiple duodenal ulcers, active bleeding from a visible vessel in a 15x20 mm ulcer, bleeding controlled with 3ml epinephrine and gold probe cautery no recurrent bleeding noted stool guaiac July 03 negative On Prilosec 40 mg bid Anemia due to GI blood loss.? status post 2 units of packed RBC in ICU, hematocrit stable since. follow CBC closely, watch for GI bleed ?MSSA bacteremia.? ? if he has aortic valve vegetation, was on cefazolin, changed to Daptomycin because of a rash, seen by Dr. Priest she recommend to continue daptomycin to complete course thru 07/11/21? , will discuss with ID regarding concern for endocarditis to change duration of IV antibiotic from 4 to 6 weeks since difficult to undergo CHRIS while on high-flow oxygen and BiPAP, Plaza placed 06/28 for prolong iv antibiotics, however patient pulled Plaza same evening. DM.? blood sugars between 150-200 range, continue diabetic diet and correction dose insulin was on glipizide and pioglitazone at home Stage II pressure ulcer on coccyx/bilateral buttock,?frequent position change, high-protein diet and barrier cream code status full code DVT prophylaxis with compression boots Quality Stroke Does the patient have a stroke diagnosis?: No VTE Prior VTE?: No VTE Risk Level:: Medical - moderate - high VTE Device Contraindication: Treatment Not Indicated VTE Drug Contraindication: Treatment Not Indicated
[2021-07-04 17:27] LABS: Anion Gap 13 (12-20); B Type Natriuretic Peptide 3316 pg/mL (<100); Blood Urea Nitrogen 77 mg/dL (9-16); Calcium 8.2 mg/dL (8.4-10.2); Carbon Dioxide 33 mmol/L (22-29); Chloride 102 mmol/L (96-108); Creatinine Clr Calc Pharmacy 38.4; Estimated Glomerular Filt Rate 29; Glucose Random 157 mg/dL (60-115); Potassium 3.3 mmol/L (3.3-5.1); Sodium 145 mmol/L (135-145)
[2021-07-04] MEDS: methylPREDNISolone Sod Succ 1,000 MG in 0.9 % Sodium Chloride 50 ML 66 MG IV (19:40)
[2021-07-04] MEDS: Metoprolol Tartrate 25 MG TABLET 75 MG PO (19:45)
[2021-07-04 20:20] LABS: Glucose, Whole Blood 144 mg/dL (60-115)
[2021-07-04] MEDS: DAPTOmycin 900 MG in 0.9 % Sodium Chloride 50 ML 136 MG IV (20:51)
--- NOTE | 2021-07-04 20:51 | P.CONCC_ITS ---
Documented by User: Mary Perez PA-C 07/04/21 21:34 History of Present Illness Data of Consult Service Date: 07/04/21 Requesting physician: Delfina Noland Primary Care Provider: Fransico Valdez MD [facility] Reason for consult: ? AMS assessment and plan discussed with Dr. Blankenship. Dr Blankenship called by hospitalist earlier today, question of amiodarone toxicity, patient slightly altered mental status. Patient was put back on the BiPAP and his blood gas was in within normal limits, mental status improved. Dr. Blankenship advised to withhold amiodarone, give 1 dose of methylprednisolone, check the TSH and get a dry chest CT in the morning. Relayed this info to Blasting Contract Miner. Review of Systems Verdana 4l Review of Systems: Yes all other systems are reviewed and Verdana 4d are negative [facility] Past Medical History Medical History (Updated 07/06/21 @ 13:27 by Vita Blankenship MD) Arthritis Bacteremia due to Gram-positive bacteria COVID-19 vaccine series completed Diabetes Elevated cholesterol Elevated prostate specific antigen [PSA] History of BPH HTN (hypertension) Morbid obesity Pleural effusion Surgical History Surgical History No significant past surgical history Social History Social History Household Members: Spouse Housing: Apartment Are you a primary healthcare insurance sales agent to a significant other at home: No Do you presently have visiting nurse or other home services: No Alcohol intake: current Alcohol intake frequency: a few times a month Patient Tobacco Use Status: Former Tobacco user Tobacco use type: Cigar service: No Current occupational status: retired Meds Allergies Allergy/AdvReac Type Severity Reaction Status Date / Time daptomycin Allergy Severe Rash Verified 07/05/21 20:58 Active Medications: Current Medications Finasteride (Finasteride 5 Mg Tablet) 5 mg PO DAILY [facility] Last Admin: 06/30/21 09:05 Dose: 5 mg Documented by: Furosemide (Furosemide 40 Mg Tablet) 40 mg PO DAILY [facility]; Protocol Last Admin: 07/04/21 12:07 Dose: 40 mg Documented by: Daptomycin 900 mg/ Sodium (Chloride) 68 mls @ 136 mls/hr IV Q24H [facility] Insulin Human Lispro (Insulin Lispro 100 Unit/Ml 3 Ml Vial) 0 unit SUBCUT QIDACHS [facility]; Protocol Last Admin: 07/04/21 16:47 Dose: Not Given Documented by: Metoprolol Tartrate (Metoprolol Tartrate 25 Mg Tablet) 75 mg PO BID [facility]; Protocol Last Admin: 07/04/21 19:45 Dose: 75 mg Documented by: Nitroglycerin (Nitroglycerin 2 % Oint 1 Gm Packet) 0.5 inch TRANSDERMA RQ6H WHILE AWAKE [facility] Last Admin: 07/04/21 19:40 Dose: 0.5 inch Documented by: Omeprazole (Omeprazole 20 Mg/10 Ml Susp.Recon) 40 mg PO BID@0630,1630 [facility] Last Admin: 07/04/21 16:14 Dose: 40 mg Documented by: Sodium Chloride (0.9 % Sodium Chloride Flush 3 Ml Syringe) 3 ml IVFLUSH QSHIFT [facility] Last Admin: 07/04/21 16:17 Dose: 3 ml Documented by: Home Medications Medication Instructions Recorded Confirmed Last Taken Type amlodipine 10 mg 10 mg PO DAILY 02/07/21 06/08/21 06/08/21 History tablet aspirin 81 mg 81 mg PO DAILY 02/07/21 06/08/21 06/08/21 History tablet,delayed release atorvastatin 10 10 mg PO BEDTIME 02/07/21 06/08/21 06/08/21 History mg tablet glipizide 10 mg 10 mg PO BID 02/07/21 06/08/21 06/08/21 History tablet lisinopril 40 mg 40 mg PO DAILY 02/07/21 06/08/21 06/08/21 History tablet metoprolol 100 mg PO BID 02/07/21 06/08/21 06/08/21 History tartrate 100 mg tablet pioglitazone 30 1 tab PO DAILY 06/08/21 06/08/21 06/08/21 History mg tablet triamcinolone 1 applic TOPICAL 06/08/21 06/08/21 Unknown History acetonide 0.1 % BID-TID topical cream Physical Exam Verdana 4l Vital Signs: Verdana 4d Verdana 4d Vital Signs: Verdana 4d Verdana 4Bd Last Vital Signs Verdana 4d Car Customizer New 4d Car Customizer New 4d Temp 98.5 F 07/04/21 15:44 Car Customizer New 4d Pulse 70 07/04/21 19:37 Car Customizer New 4d Resp 20 07/04/21 19:37 BP 131/53 L 07/04/21 19:37 Pulse Ox 97 07/04/21 19:37 Oxygen Flow Rate 10 07/04/21 10:00 BMI result Body Mass Index 34.8 Const: General: cooperative, comfortable, no acute distress, well developed, alert, awake and tired appearing Nutritional Appearance: obese HENMT: Head: Yes normal to inspection, Yes normocephalic and Yes atraumatic Face and sinus: Yes normal facial exam Eyes: General: appearance normal, both eyes and all related structures Pupils: Equal, round and reactive pupils present EOM: EOMs intact bilaterally Neck: Neck: Yes normal visual inspection, Yes full ROM, Yes trachea midline and Yes supple Resp: Effort & Inspection: tachypneic Auscultation: no crackles, no rales, no rhonchi, no wheezes and diminished lung sounds (coarse) diffuse Cardio: Rate: regular rate Rhythm: abnormal rhythm Heart sounds: normal S1 and S2 GI: Inspection: Yes obesity Palpation (GI): Soft to palpation and nontender Skin: Other: diffuse maculopapular rash on bilateral extremities Neuro: Other: no focal deficits Cranial nerves: Yes Equal, round and reactive pupils present Extrem: General: Yes edema (trace b/l LE) Results Labs CBC & Chem 7: 07/06/21 05:20 07/06/21 05:20 Labs: BMP 07/04/21 16:59 Sodium 145 Potassium 3.3 Chloride 102 Carbon Dioxide 33 H BUN 77 H Creatinine 2.19 H Calcium 8.2 L Microbiology Microbiology Results: Microbiology 06/29/21 15:20 Blood - Venous Blood Culture - Final No growth after 5 days. 06/29/21 15:20 Blood - Venous Blood Culture - Final No growth after 5 days. 06/30/21 02:16 Sputum - Suctioned Gram Stain - Final 06/30/21 02:16 Sputum - Suctioned Sputum Culture - Final 06/29/21 20:32 Urine Catheterized - Villa Catheter Urine Culture - Final No growth. 06/19/21 14:54 Blood - Venous Blood Culture - Final No growth after 5 days. 06/19/21 14:55 Blood - Venous Blood Culture - Final No growth after 5 days. 06/09/21 17:15 Blood - Venous Blood Culture - Final Staphylococcus aureus 06/09/21 17:10 Blood - Venous Blood Culture - Final Staphylococcus aureus 06/08/21 23:11 Blood - Venous Blood Culture - Final Staphylococcus aureus 06/08/21 23:11 Blood - Venous Blood Culture - Final Staphylococcus aureus Assessment and Plan (1) Acute respiratory failure: Status: Acute (2) Persistent atrial fibrillation: Status: Acute (3) Acute heart failure: Status: Acute (4) Heart failure with preserved ejection fraction: Status: Acute (5) Elevated brain natriuretic peptide (BNP) level: Status: Acute (6) Diabetes: Status: Acute (7) Acute respiratory distress syndrome (ARDS) due to COVID-19 virus: Status: Acute (8) Morbid obesity: Status: Acute (9) Thrombocytopenia associated with severe acute respiratory syndrome coronavirus 2 (SARS-CoV-2) infection: Status: Acute (10) Acute hypoxemic respiratory failure: Status: Acute (11) Acute non-ST elevation myocardial infarction (NSTEMI): Status: Acute (12) GI bleed: Status: Acute (13) Acute renal failure: Qualifiers: Acute renal failure type: unspecified Qualified Code(s): N17.9 - Acute kidney failure, unspecified Status: Acute (14) BPH w urinary obs/LUTS: Status: Acute (15) Nocturia associated with benign prostatic hyperplasia: Status: Acute (16) Weakness: Status: Acute Plan Advised dry chest CT in AM, TSH; steroid given, amiodarone held.
[2021-07-05] VITALS (15 sets, daily range): BP systolic 131–160; BP diastolic 52–86; PULSE 62–134; RESP 15–29; TEMP 36.3–36.4; O2SAT 90–100; BMI 35.0
--- NOTE | 2021-07-05 | ECG_ITS ---
Test Reason : rhythm check Blood Pressure : / mmHG Vent. Rate : 112 BPM Atrial Rate : 000 BPM P-R Int : 000 ms QRS Dur : 108 ms QT Int : 334 ms P-R-T Axes : 000 020 162 degrees QTc Int : 455 ms Atrial fibrillation with rapid ventricular response Incomplete left bundle branch block Minimal voltage criteria for LVH, may be normal variant ( Sampson product ) T wave abnormality, consider lateral ischemia Abnormal ECG When compared with ECG of 29-JUN-2021 08:36, Atrial fibrillation has replaced Sinus rhythm Nonspecific T wave abnormality no longer evident in Anterior leads Referred By: Mary Perez Electronically Signed By:JOLIE SONG
--- NOTE | 2021-07-05 05:02 | PC.NURSE ---
Pt seen on bed at shift change with BiPAP on sating in the low to high 90s, pt able to respond appropriately but with some forgetfullness, restless at times and taking his BiPAP mask off, then eventually desats to low 80s, redirected and reoriented frequently, maintaining SR in tele, slept at intervals. At 5am, pt been more restless and non compliant to the BiPAP, RT made aware and came and shifted O2 to trial Dhaliwal cannula at 10L/min.
[2021-07-05 06:07] LABS: Basophils Percent Auto 0.2 % (0-2); Hematocrit 32.1 % (42.0-52.0); Hemoglobin 9.7 g/dl (14.0-18.0); Imm Gran Abs Auto 0.33 X10*3/uL (0.00-0.03); Lymphocytes Absolute Auto 0.6 X10*3/uL (1.2-4.9); Lymphocytes Percent Auto 3.6 % (20-40); MANUAL DIFF FLAG SCAN; Mean Corpuscular HGB Conc 30.2 g/dl (31.0-36.0); Mean Corpuscular Volume 96.1 fL (80.0-98.0); Mean Platelet Volume 12.6 fL (9.4-12.4); Monocytes Absolute Auto 0.1 X10*3/uL (0.1-1.2); Monocytes Percent Auto 0.6 % (2-11); NRBC Pct Auto 0.2 /100WBC (0.0-0.2); Neutrophils Absolute Auto 15.5 x10*3/uL (2.0-8.3); Neutrophils Percent Auto 93.6 % (45-73); Platelet Count 145 X10*3/uL (160-400); Red Blood Count 3.34 X10*6/uL (4.60-5.80); SCAN SMEAR FLAG 1; White Blood Count 16.6 X10*3/uL (4.8-10.8)
[2021-07-05 06:25] LABS: Anion Gap 23 (12-20); Blood Urea Nitrogen 86 mg/dL (9-16); Calcium 8.3 mg/dL (8.4-10.2); Carbon Dioxide 26 mmol/L (22-29); Chloride 100 mmol/L (96-108); Creatinine Clr Calc Pharmacy 32.9; Estimated Glomerular Filt Rate 25; Glucose Random 319 mg/dL (60-115); Potassium 4.3 mmol/L (3.3-5.1); Sodium 145 mmol/L (135-145)
[2021-07-05 06:33] LABS: SLIDE REVIEW VERIFIED
[2021-07-05 07:20] LABS: Glucose, Whole Blood 313 mg/dL (60-115)
[2021-07-05] MEDS: Metoprolol Tartrate 25 MG TABLET 75 MG PO (07:52)
[2021-07-05] MEDS: Nitroglycerin 2 % Oint 1 GM Packet 0.5 INCH TRANSDERMA (07:53)
[2021-07-05] MEDS: 0.9 % Sodium Chloride Flush 3 ML SYRINGE IVFLUSH ×2 (07:53→15:30)
[2021-07-05] MEDS: Insulin Lispro 100 UNIT/ML 3 ML VIAL SUBCUT ×2 (08:24→11:50)
[2021-07-05 08:30] LABS: Basophils Percent Auto 0.1 % (0-2); Hematocrit 31.8 % (42.0-52.0); Hemoglobin 9.6 g/dl (14.0-18.0); Imm Gran Abs Auto 0.32 X10*3/uL (0.00-0.03); Lymphocytes Absolute Auto 0.5 X10*3/uL (1.2-4.9); Lymphocytes Percent Auto 3.2 % (20-40); MANUAL DIFF FLAG SCAN; Mean Corpuscular HGB Conc 30.2 g/dl (31.0-36.0); Mean Corpuscular Hemoglobin 29.1 pg (27.0-33.0); Mean Corpuscular Volume 96.4 fL (80.0-98.0); Mean Platelet Volume 11.8 fL (9.4-12.4); Monocytes Absolute Auto 0.1 X10*3/uL (0.1-1.2); Monocytes Percent Auto 0.7 % (2-11); NRBC Pct Auto 0.2 /100WBC (0.0-0.2); Neutrophils Absolute Auto 15.2 x10*3/uL (2.0-8.3); Platelet Count 135 X10*3/uL (160-400); SCAN SMEAR FLAG 1; Venous Blood Gas Refer to POC result; White Blood Count 16.1 X10*3/uL (4.8-10.8)
[2021-07-05 08:31] LABS: VBG Base Excess 1.9 mmol/L; VBG HCO3 28 mmol/L (22-26); VBG pCO2 56 mmHg; VBG pH 7.31 (7.32-7.43); VBG pO2 59 mmHg
[2021-07-05 08:51] LABS: B Type Natriuretic Peptide 3197 pg/mL (<100)
[2021-07-05 08:54] LABS: Anion Gap 20 (12-20); Blood Urea Nitrogen 89 mg/dL (9-16); Calcium 8.1 mg/dL (8.4-10.2); Carbon Dioxide 28 mmol/L (22-29); Chloride 100 mmol/L (96-108); Creatinine Clr Calc Pharmacy 31.9; Estimated Glomerular Filt Rate 24; Glucose Random 351 mg/dL (60-115); Potassium 4.3 mmol/L (3.3-5.1); Sodium 144 mmol/L (135-145)
[2021-07-05 09:05] LABS: TSH reflex Free T4 0.93 uIU/mL (0.32-4.0)
[2021-07-05] MEDS: Albuterol/Iprat 2.5/0.5MG 3 ML AMPUL.NEB INHALE (09:05)
--- NOTE | 2021-07-05 10:15 | P.PNCA_ITS ---
Subjective Subjective Date of Service: 07/05/21 Principal diagnosis: CKD. CHF Interval history: appears short of breath. Very weak. Review of Systems Review of Systems Yes all other systems are reviewed and are negative Constitutional: Reports fatigue, Reports lethargy, Reports malaise and Reports weakness Cardiovascular: Reports as per HPI, Reports no additional cardiovascular complaints, Denies acrocyanosis, Denies cool extremities, Denies painful fingertips, Denies chest pain, Denies chest pain at rest, Denies diaphoresis, Denies syncope, Denies irregular heart rhythm, Denies claudication, Denies leg edema, Denies lightheadedness, Denies palpitations and Reports dyspnea Respiratory: Reports dyspnea Denies syncope and Reports weakness Endocrine: Reports fatigue and Denies palpitations Physical Exam Vital Signs: Last Vital Signs Temp 97.4 F 07/05/21 07:28 Pulse 64 07/05/21 09:57 Resp 22 H 07/05/21 09:07 BP 160/70 H 07/05/21 07:28 Pulse Ox 93 07/05/21 07:28 Verdana 4 Oxygen Flow Verdana 4 10 Verdana 4 07/04/21 Rate Verdana 4 10:00 Verdana 4 Verdana 4 BMI result Verdana 4 Body Mass Index Verdana 4 35.0 Verdana 4 Verdana 4 Const General: ill appearing HENMT Other: Unremarkable Neck Neck: Yes normal visual inspection Chest Chest palpation & inspection: normal inspection of the chest Resp Other: diminished breath sounds; crackles, wheeze Cardio Palpation: normal PMI Heart sounds: S1 normal heart sound present, S2 normal heart sound present, no gallops, Murmur heart sound present and no rubs GI Palpation (GI): Soft to palpation Back/Spine/Pelvis Other: unremarkable Skin Lesions: other Neuro Cranial nerves: Yes Other cranial nerve findings present Extrem Other: edema+ General: Yes other Psych Mental Status: other Objective Labs and Meds Result diagrams: 07/05/21 08:22 07/05/21 08:22 Lab results: Laboratory Results - last 24 hr 07/04/21 07/04/21 07/04/21 10:56 15:47 16:59 WBC RBC Hgb Hct MCV MCH MCHC RDW Plt Count MPV Immature Gran % (Auto) Neut % (Auto) Lymph % (Auto) [place] % (Auto) Eos % (Auto) Baso % (Auto) Lymph # (Auto) [place] # (Auto) Eos # (Auto) Baso # (Auto) Abs Immat Gran (auto) Absolute Neuts (auto) Absolute Nucleated RBC Nucleated RBC % (auto) Smear Tech's Comments VBG pH VBG pCO2 VBG pO2 VBG HCO3 VBG O2 Saturation VBG Base Excess Sodium 145 Potassium 3.3 Chloride 102 Carbon Dioxide 33 H Anion Gap 13 BUN 77 H Creatinine 2.19 H Estim Creat Clear Calc 38.4 Estimated GFR 29 POC Glucose 219 H 152 H Random Glucose 157 H Calcium 8.2 L B-Natriuretic Peptide TSH 07/04/21 07/04/21 07/04/21 16:59 17:05 19:47 WBC RBC Hgb Hct MCV MCH MCHC RDW Plt Count MPV Immature Gran % (Auto) Neut % (Auto) Lymph % (Auto) [place] % (Auto) Eos % (Auto) Baso % (Auto) Lymph # (Auto) [place] # (Auto) Eos # (Auto) Baso # (Auto) Abs Immat Gran (auto) Absolute Neuts (auto) Absolute Nucleated RBC Nucleated RBC % (auto) Smear Tech's Comments VBG pH 7.44 H VBG pCO2 53 VBG pO2 50 VBG HCO3 36 H VBG O2 Saturation 79.0 VBG Base Excess 10.9 Sodium Potassium Chloride Carbon Dioxide Anion Gap BUN Creatinine Estim Creat Clear Calc Estimated GFR POC Glucose 144 H Random Glucose Calcium B-Natriuretic Peptide 3316 H TSH 07/05/21 07/05/21 07/05/21 05:38 05:38 07:16 WBC 16.6 H RBC 3.34 L Hgb 9.7 L Hct 32.1 L MCV 96.1 MCH 29.0 MCHC 30.2 L RDW 19.0 H Plt Count 145 L MPV 12.6 H Immature Gran % (Auto) 2.0 H Neut % (Auto) 93.6 H Lymph % (Auto) 3.6 L [place] % (Auto) 0.6 L Eos % (Auto) 0.0 Baso % (Auto) 0.2 Lymph # (Auto) 0.6 L [place] # (Auto) 0.1 Eos # (Auto) 0.0 Baso # (Auto) 0.0 Abs Immat Gran (auto) 0.33 H Absolute Neuts (auto) 15.5 H Absolute Nucleated RBC 0.040 H Nucleated RBC % (auto) 0.2 Smear Tech's Comments VERIFIED VBG pH VBG pCO2 VBG pO2 VBG HCO3 VBG O2 Saturation VBG Base Excess Sodium 145 Potassium 4.3 D Chloride 100 Carbon Dioxide 26 Anion Gap 23 H BUN 86 H Creatinine 2.56 H Estim Creat Clear Calc 32.9 Estimated GFR 25 POC Glucose 313 H Random Glucose 319 H D Calcium 8.3 L B-Natriuretic Peptide TSH 07/05/21 07/05/21 07/05/21 08:22 08:22 08:22 WBC 16.1 H RBC 3.30 L Hgb 9.6 L Hct 31.8 L MCV 96.4 MCH 29.1 MCHC 30.2 L RDW 19.0 H Plt Count 135 L MPV 11.8 Immature Gran % (Auto) 2.0 H Neut % (Auto) 94.0 H Lymph % (Auto) 3.2 L [place] % (Auto) 0.7 L Eos % (Auto) 0.0 Baso % (Auto) 0.1 Lymph # (Auto) 0.5 L [place] # (Auto) 0.1 Eos # (Auto) 0.0 Baso # (Auto) 0.0 Abs Immat Gran (auto) 0.32 H Absolute Neuts (auto) 15.2 H Absolute Nucleated RBC 0.030 H Nucleated RBC % (auto) 0.2 Smear Tech's Comments VBG pH VBG pCO2 VBG pO2 VBG HCO3 VBG O2 Saturation VBG Base Excess Sodium 144 Potassium 4.3 Chloride 100 Carbon Dioxide 28 Anion Gap 20 BUN 89 H Creatinine 2.64 H Estim Creat Clear Calc 31.9 Estimated GFR 24 POC Glucose Random Glucose 351 H* Calcium 8.1 L B-Natriuretic Peptide 3197 H TSH 0.93 07/05/21 08:25 WBC RBC Hgb Hct MCV MCH MCHC RDW Plt Count MPV Immature Gran % (Auto) Neut % (Auto) Lymph % (Auto) [place] % (Auto) Eos % (Auto) Baso % (Auto) Lymph # (Auto) [place] # (Auto) Eos # (Auto) Baso # (Auto) Abs Immat Gran (auto) Absolute Neuts (auto) Absolute Nucleated RBC Nucleated RBC % (auto) Smear Tech's Comments VBG pH 7.31 L VBG pCO2 56 VBG pO2 59 VBG HCO3 28 H VBG O2 Saturation 83.0 VBG Base Excess 1.9 Sodium Potassium Chloride Carbon Dioxide Anion Gap BUN Creatinine Estim Creat Clear Calc Estimated GFR POC Glucose Random Glucose Calcium B-Natriuretic Peptide TSH Imaging Radiologist's impression: Impressions Chest X-Ray 07/04/21 11:40 IMPRESSION: Stable enlargement of the cardiac silhouette. No change in the bilateral infiltrates from 07/02/2021 exam. Question small left pleural effusion. Progress Note: A&P Assessment and plan (1) Acute respiratory distress syndrome (ARDS) due to COVID-19 virus: Status: Acute (2) Acute respiratory failure: Status: Acute (3) Atrial fibrillation with rapid ventricular response: Status: Acute Plan On telemetry, he is in sinus rhythm; was on Amiodarone, but it seems that this has been stopped due to ?lung toxicity. High likelihood of recurrent atrial fibrillation. Non on beta blockers. When able, anticoagulation. Respiratory distress more likely from COVID/ARDS and less likely from CHF. Last LVEF 60-65% and only mild diastolic dysfunction. There is also question of possible aortic valve vegetation. Initial blood cultures are positive for Staphylococcus aureus but repeat studies have been neg ative. There was a question of transesophageal echocardiogram but based on his clinical condition, does not seem suitable. He still on a lot of oxygen and also extremely weak and can barely move even with 3 people. Also not clear if that will post exchange manager or not. If necessary and is to be performed, then he may need to be intubated again which isn't preferable either. Hence, probably just empiric antibiotics. Additionally, the hospital does not have a CHRIS probe at this time (not working). Discussed with . Fall Risk Details Current Medications: Current Medications Finasteride (Finasteride 5 Mg Tablet) 5 mg PO DAILY [facility] Last Admin: 06/30/21 09:05 Dose: 5 mg Documented by: Daptomycin 900 mg/ Sodium (Chloride) 68 mls @ 136 mls/hr IV Q24H [facility] Last Infusion: 07/04/21 21:45 Dose: Infused Documented by: Insulin Human Lispro (Insulin Lispro 100 Unit/Ml 3 Ml Vial) 0 unit SUBCUT QIDACHS [facility]; Protocol Last Admin: 07/05/21 08:24 Dose: 6 unit Documented by: Metoprolol Tartrate (Metoprolol Tartrate 25 Mg Tablet) 75 mg PO BID [facility]; Pro tocol Last Admin: 07/05/21 07:52 Dose: 75 mg Documented by: Nitroglycerin (Nitroglycerin 2 % Oint 1 Gm Packet) 0.5 inch TRANSDERMA RQ6H WHILE AWAKE [facility] Last Admin: 07/05/21 07:53 Dose: 0.5 inch Documented by: Omeprazole (Omeprazole 20 Mg/10 Ml Susp.Recon) 40 mg PO BID@0630,1630 [facility] Last Admin: 07/05/21 05:57 Dose: 40 mg Documented by: Sodium Chloride (0.9 % Sodium Chloride Flush 3 Ml Syringe) 3 ml IVFLUSH QSHIFT [facility] Last Admin: 07/05/21 07:53 Dose: 3 ml Documented by: Time Spent With Patient Time: Total time spent is greater than 50% in coordination of care (as documented) at patient's floor/unit and/or counseling patient: Time with patient: less than 15 minutes Progress Note: Quality Stroke Does the patient have a stroke diagnosis?: No Procedures Date of Service Date of Service: 07/05/21
--- NOTE | 2021-07-05 10:57 | P.PNNP_ITS ---
Subjective Subjective Date of Service: 07/05/21 Principal diagnosis: CKD. CHF Interval history: Events noted; All recent data reviewed Physical Exam Verdana 4l Vital Signs: Verdana 4d Verdana 4d Vital Signs: Verdana 4d Verdana 4Bd Last Vital Signs Verdana 4d Telecommunications Network Engineer New 4d Telecommunications Network Engineer New 4d Temp 97.4 F 07/05/21 07:28 Telecommunications Network Engineer New 4d Pulse 64 07/05/21 09:57 Telecommunications Network Engineer New 4d Resp 22 H 07/05/21 09:07 BP 160/70 H 07/05/21 07:28 Pulse Ox 93 07/05/21 07:28 Oxygen Flow Rate 10 07/04/21 10:00 BMI result Body Mass Index 35.0 HENMT: Head: Yes normocephalic Neck: Neck: Yes supple Resp: Auscultation: diminished lung sounds Cardio: Rate: regular rate GI: Palpation (GI): Soft to palpation Neuro: General: moves all extremities Objective Data Labs CBC & Chem 7: 07/05/21 08:22 07/05/21 08:22 Labs: Laboratory Results - last 24 hr 07/04/21 07/04/21 07/04/21 10:56 15:47 16:59 WBC RBC Hgb Hct MCV MCH MCHC RDW Plt Count MPV Immature Gran % (Auto) Neut % (Auto) Lymph % (Auto) [place] % (Auto) Eos % (Auto) Baso % (Auto) Lymph # (Auto) [place] # (Auto) Eos # (Auto) Baso # (Auto) Abs Immat Gran (auto) Absolute Neuts (auto) Absolute Nucleated RBC Nucleated RBC % (auto) Smear Tech's Comments VBG pH VBG pCO2 VBG pO2 VBG HCO3 VBG O2 Saturation VBG Base Excess Sodium 145 Potassium 3.3 Chloride 102 Carbon Dioxide 33 H Anion Gap 13 BUN 77 H Creatinine 2.19 H Estim Creat Clear Calc 38.4 Estimated GFR 29 POC Glucose 219 H 152 H Random Glucose 157 H Calcium 8.2 L B-Natriuretic Peptide TSH 07/04/21 07/04/21 07/04/21 16:59 17:05 19:47 WBC RBC Hgb Hct MCV MCH MCHC RDW Plt Count MPV Immature Gran % (Auto) Neut % (Auto) Lymph % (Auto) [place] % (Auto) Eos % (Auto) Baso % (Auto) Lymph # (Auto) [place] # (Auto) Eos # (Auto) Baso # (Auto) Abs Immat Gran (auto) Absolute Neuts (auto) Absolute Nucleated RBC Nucleated RBC % (auto) Smear Tech's Comments VBG pH 7.44 H VBG pCO2 53 VBG pO2 50 VBG HCO3 36 H VBG O2 Saturation 79.0 VBG Base Excess 10.9 Sodium Potassium Chloride Carbon Dioxide Anion Gap BUN Creatinine Estim Creat Clear Calc Estimated GFR POC Glucose 144 H Random Glucose Calcium B-Natriuretic Peptide 3316 H TSH 07/05/21 07/05/21 07/05/21 05:38 05:38 07:16 WBC 16.6 H RBC 3.34 L Hgb 9.7 L Hct 32.1 L MCV 96.1 MCH 29.0 MCHC 30.2 L RDW 19.0 H Plt Count 145 L MPV 12.6 H Immature Gran % (Auto) 2.0 H Neut % (Auto) 93.6 H Lymph % (Auto) 3.6 L [place] % (Auto) 0.6 L Eos % (Auto) 0.0 Baso % (Auto) 0.2 Lymph # (Auto) 0.6 L [place] # (Auto) 0.1 Eos # (Auto) 0.0 Baso # (Auto) 0.0 Abs Immat Gran (auto) 0.33 H Absolute Neuts (auto) 15.5 H Absolute Nucleated RBC 0.040 H Nucleated RBC % (auto) 0.2 Smear Tech's Comments VERIFIED VBG pH VBG pCO2 VBG pO2 VBG HCO3 VBG O2 Saturation VBG Base Excess Sodium 145 Potassium 4.3 D Chloride 100 Carbon Dioxide 26 Anion Gap 23 H BUN 86 H Creatinine 2.56 H Estim Creat Clear Calc 32.9 Estimated GFR 25 POC Glucose 313 H Random Glucose 319 H D Calcium 8.3 L B-Natriuretic Peptide [facility] 07/05/21 07/05/21 07/05/21 08:22 08:22 08:22 WBC 16.1 H RBC 3.30 L Hgb 9.6 L Hct 31.8 L MCV 96.4 MCH 29.1 MCHC 30.2 L RDW 19.0 H Plt Count 135 L MPV 11.8 Immature Gran % (Auto) 2.0 H Neut % (Auto) 94.0 H Lymph % (Auto) 3.2 L [place] % (Auto) 0.7 L Eos % (Auto) 0.0 Baso % (Auto) 0.1 Lymph # (Auto) 0.5 L [place] # (Auto) 0.1 Eos # (Auto) 0.0 Baso # (Auto) 0.0 Abs Immat Gran (auto) 0.32 H Absolute Neuts (auto) 15.2 H Absolute Nucleated RBC 0.030 H Nucleated RBC % (auto) 0.2 Smear Tech's Comments VBG pH VBG pCO2 VBG pO2 VBG HCO3 VBG O2 Saturation VBG Base Excess Sodium 144 Potassium 4.3 Chloride 100 Carbon Dioxide 28 Anion Gap 20 BUN 89 H Creatinine 2.64 H Estim Creat Clear Calc 31.9 Estimated GFR 24 POC Glucose Random Glucose 351 H* Calcium 8.1 L B-Natriuretic Peptide 3197 H TSH 0.93 07/05/21 08:25 WBC RBC Hgb Hct MCV MCH MCHC RDW Plt Count MPV Immature Gran % (Auto) Neut % (Auto) Lymph % (Auto) [place] % (Auto) Eos % (Auto) Baso % (Auto) Lymph # (Auto) [place] # (Auto) Eos # (Auto) Baso # (Auto) Abs Immat Gran (auto) Absolute Neuts (auto) Absolute Nucleated RBC Nucleated RBC % (auto) Smear Tech's Comments VBG pH 7.31 L VBG pCO2 56 VBG pO2 59 VBG HCO3 28 H VBG O2 Saturation 83.0 VBG Base Excess 1.9 Sodium Potassium Chloride Carbon Dioxide Anion Gap BUN Creatinine Estim Creat Clear Calc Estimated GFR POC Glucose Random Glucose Calcium B-Natriuretic Peptide TSH Microbiology Microbiology Results: Microbiology 06/29/21 15:20 Blood - Venous Blood Culture - Final No growth after 5 days. 06/29/21 15:20 Blood - Venous Blood Culture - Final No growth after 5 days. 06/30/21 02:16 Sputum - Suctioned Gram Stain - Final 06/30/21 02:16 Sputum - Suctioned Sputum Culture - Final 06/29/21 20:32 Urine Catheterized - Villa Catheter Urine Culture - Final No growth. 06/19/21 14:54 Blood - Venous Blood Culture - Final No growth after 5 days. 06/19/21 14:55 Blood - Venous Blood Culture - Final No growth after 5 days. 06/09/21 17:15 Blood - Venous Blood Culture - Final Staphylococcus aureus 06/09/21 17:10 Blood - Venous Blood Culture - Final Staphylococcus aureus 06/08/21 23:11 Blood - Venous Blood Culture - Final Staphylococcus aureus 06/08/21 23:11 Blood - Venous Blood Culture - Final Staphylococcus aureus Procedures Date of Service Date of Service: 07/05/21 Assessment & Plan Assessment and plan (1) Acute renal failure: Status: Acute Assessment and Plan: Acute Kidney Injury due to tubular injury Renal functions had been fairly stable Continue current supportive care Shall closely follow up Time Spent With Patient Time: Total time spent is greater than 50% in coordination of care (as documented) at patient's floor/unit and/or counseling patient: Progress Note: Quality Stroke Does the patient have a stroke diagnosis?: No
[2021-07-05 11:23] LABS: Glucose, Whole Blood 299 mg/dL (60-115)
--- NOTE | 2021-07-05 12:17 | PC.NURSE ---
Skin/wound assessment completed today. Patient has stage 2 to bilateral buttocks and coccyx with darkened skin areas. Triad being applied which starting to break down the darkened areas. Repositioning patient every hour off buttocks to improve circulation and healing of wound.
--- NOTE | 2021-07-05 13:24 | P.PNPL_ITS ---
Subjective Subjective Date of Service: 07/05/21 Principal diagnosis: CKD. CHF Interval history: The patient was seen on exam. He is sitting up in bed at this time on 8 L nasal cannula. He does complaint of dyspnea symptoms. Yesterday he had some altered mental status and he was placed back on BiPAP around 6:00 p.m.. This morning those a question of aspiration while eating ice cream. He did undergo a CT scan of the chest which was personally by me demonstrating ground-glass opacities primarily in the upper lung zones right more than left. Patient does have compressive atelectasis at the bases in bilateral pleural effusions. Appears patient is to volume overloaded. In view of the ground-glass opacities he was taken off the amiodarone which I believe was the right thing. His lungs his heart rate is stable. He did have an ABG this morning demonstrating more acidosis therefore acute on chronic hypercarbic respiratory failure may have also component of metabolic acidosis due to his renal failure. Objective Data Labs CBC & Chem 7: 07/05/21 08:22 07/05/21 08:22 Labs: Laboratory Results - last 24 hr 07/04/21 07/04/21 07/04/21 15:47 16:59 16:59 WBC RBC Hgb Hct MCV MCH MCHC RDW Plt Count MPV Immature Gran % (Auto) Neut % (Auto) Lymph % (Auto) [place] % (Auto) Eos % (Auto) Baso % (Auto) Lymph # (Auto) [place] # (Auto) Eos # (Auto) Baso # (Auto) Abs Immat Gran (auto) Absolute Neuts (auto) Absolute Nucleated RBC Nucleated RBC % (auto) Smear Tech's Comments VBG pH VBG pCO2 VBG pO2 VBG HCO3 VBG O2 Saturation VBG Base Excess Sodium 145 Potassium 3.3 Chloride 102 Carbon Dioxide 33 H Anion Gap 13 BUN 77 H Creatinine 2.19 H Estim Creat Clear Calc 38.4 Estimated GFR 29 POC Glucose 152 H Random Glucose 157 H Calcium 8.2 L B-Natriuretic Peptide 3316 H TSH 07/04/21 07/04/21 07/05/21 17:05 19:47 05:38 WBC 16.6 H RBC 3.34 L Hgb 9.7 L Hct 32.1 L MCV 96.1 MCH 29.0 MCHC 30.2 L RDW 19.0 H Plt Count 145 L MPV 12.6 H Immature Gran % (Auto) 2.0 H Neut % (Auto) 93.6 H Lymph % (Auto) 3.6 L [place] % (Auto) 0.6 L Eos % (Auto) 0.0 Baso % (Auto) 0.2 Lymph # (Auto) 0.6 L [place] # (Auto) 0.1 Eos # (Auto) 0.0 Baso # (Auto) 0.0 Abs Immat Gran (auto) 0.33 H Absolute Neuts (auto) 15.5 H Absolute Nucleated RBC 0.040 H Nucleated RBC % (auto) 0.2 Smear Tech's Comments VERIFIED VBG pH 7.44 H VBG pCO2 53 VBG pO2 50 VBG HCO3 36 H VBG O2 Saturation 79.0 VBG Base Excess 10.9 Sodium Potassium Chloride Carbon Dioxide Anion Gap BUN Creatinine Estim Creat Clear Calc Estimated GFR POC Glucose 144 H Random Glucose Calcium B-Natriuretic Peptide [facility] 07/05/21 07/05/21 07/05/21 05:38 07:16 08:22 WBC 16.1 H RBC 3.30 L Hgb 9.6 L Hct 31.8 L MCV 96.4 MCH 29.1 MCHC 30.2 L RDW 19.0 H Plt Count 135 L MPV 11.8 Immature Gran % (Auto) 2.0 H Neut % (Auto) 94.0 H Lymph % (Auto) 3.2 L [place] % (Auto) 0.7 L Eos % (Auto) 0.0 Baso % (Auto) 0.1 Lymph # (Auto) 0.5 L [place] # (Auto) 0.1 Eos # (Auto) 0.0 Baso # (Auto) 0.0 Abs Immat Gran (auto) 0.32 H Absolute Neuts (auto) 15.2 H Absolute Nucleated RBC 0.030 H Nucleated RBC % (auto) 0.2 Smear Tech's Comments VBG pH VBG pCO2 VBG pO2 VBG HCO3 VBG O2 Saturation VBG Base Excess Sodium 145 Potassium 4.3 D Chloride 100 Carbon Dioxide 26 Anion Gap 23 H BUN 86 H Creatinine 2.56 H Estim Creat Clear Calc 32.9 Estimated GFR 25 POC Glucose 313 H Random Glucose 319 H D Calcium 8.3 L B-Natriuretic Peptide TSH 07/05/21 07/05/21 07/05/21 08:22 08:22 08:25 WBC RBC Hgb Hct MCV MCH MCHC RDW Plt Count MPV Immature Gran % (Auto) Neut % (Auto) Lymph % (Auto) [place] % (Auto) Eos % (Auto) Baso % (Auto) Lymph # (Auto) [place] # (Auto) Eos # (Auto) Baso # (Auto) Abs Immat Gran (auto) Absolute Neuts (auto) Absolute Nucleated RBC Nucleated RBC % (auto) Smear Tech's Comments VBG pH 7.31 L VBG pCO2 56 VBG pO2 59 VBG HCO3 28 H VBG O2 Saturation 83.0 VBG Base Excess 1.9 Sodium 144 Potassium 4.3 Chloride 100 Carbon Dioxide 28 Anion Gap 20 BUN 89 H Creatinine 2.64 H Estim Creat Clear Calc 31.9 Estimated GFR 24 POC Glucose Random Glucose 351 H* Calcium 8.1 L B-Natriuretic Peptide 3197 H TSH 0.93 07/05/21 11:13 WBC RBC Hgb Hct MCV MCH MCHC RDW Plt Count MPV Immature Gran % (Auto) Neut % (Auto) Lymph % (Auto) [place] % (Auto) Eos % (Auto) Baso % (Auto) Lymph # (Auto) [place] # (Auto) Eos # (Auto) Baso # (Auto) Abs Immat Gran (auto) Absolute Neuts (auto) Absolute Nucleated RBC Nucleated RBC % (auto) Smear Tech's Comments VBG pH VBG pCO2 VBG pO2 VBG HCO3 VBG O2 Saturation VBG Base Excess Sodium Potassium Chloride Carbon Dioxide Anion Gap BUN Creatinine Estim Creat Clear Calc Estimated GFR POC Glucose 299 H Random Glucose Calcium B-Natriuretic Peptide TSH Microbiology Microbiology Results: Microbiology 06/29/21 15:20 Blood - Venous Blood Culture - Final No growth after 5 days. 06/29/21 15:20 Blood - Venous Blood Culture - Final No growth after 5 days. 06/30/21 02:16 Sputum - Suctioned Gram Stain - Final 06/30/21 02:16 Sputum - Suctioned Sputum Culture - Final 06/29/21 20:32 Urine Catheterized - Villa Catheter Urine Culture - Final No growth. 06/19/21 14:54 Blood - Venous Blood Culture - Final No growth after 5 days. 06/19/21 14:55 Blood - Venous Blood Culture - Final No growth after 5 days. 06/09/21 17:15 Blood - Venous Blood Culture - Final Staphylococcus aureus 06/09/21 17:10 Blood - Venous Blood Culture - Final Staphylococcus aureus 06/08/21 23:11 Blood - Venous Blood Culture - Final Staphylococcus aureus 06/08/21 23:11 Blood - Venous Blood Culture - Final Staphylococcus aureus Review of Systems Review of Systems Yes all other systems are reviewed and are negative Constitutional: Reports fatigue, Reports lethargy, Reports malaise and Reports weakness Cardiovascular: Reports as per HPI, Reports no additional cardiovascular compl aints, Denies acrocyanosis, Denies cool extremities, Denies painful fingertips, Denies chest pain, Denies chest pain at rest, Denies diaphoresis, Denies syncope, Denies irregular heart rhythm, Denies claudication, Denies leg edema, Denies lightheadedness, Denies palpitations and Reports dyspnea Respiratory: Reports dyspnea Denies syncope and Reports weakness Endocrine: Reports fatigue and Denies palpitations Physical Exam Verdana 4l Vital Signs: Verdana 4d Verdana 4d Vital Signs: Verdana 4d Verdana 4Bd Last Vital Signs Verdana 4d Collections Officer New 4d Collections Officer New 4d Temp 97.6 F 07/05/21 12:00 Collections Officer New 4d Pulse 72 07/05/21 12:00 Collections Officer New 4d Resp 15 07/05/21 12:00 BP 159/68 H 07/05/21 12:00 Pulse Ox 92 07/05/21 12:00 Oxygen Flow Rate 10 07/04/21 10:00 BMI result Body Mass Index 35.0 Const: General: ill appearing Neck: Neck: Yes normal visual inspection, Yes full ROM and Yes no lymphadenopathy Chest: Chest palpation & inspection: normal inspection of the chest Resp: Auscultation: diminished lung sounds Cardio: Rate: regular rate Rhythm: abnormal rhythm Heart sounds: S1 normal heart sound present and S2 normal heart sound present GI: Palpation (GI): Soft to palpation and nontender Auscultation: normal bowel sounds Skin: General skin exam: rashes and/or lesions noted Procedures Date of Service Date of Service: 07/05/21 Assessment and Plan Assessment and plan (1) Acute respiratory failure: Status: Acute (2) Heart failure with preserved ejection fraction: Status: Acute (3) Acute respiratory distress syndrome (ARDS) due to COVID-19 virus: Status: Acute (4) Bacteremia due to Gram-positive bacteria: Status: Acute (5) Pleural effusion: Status: Acute Plan Continue daptomycin Started Solu-Medrol to treat for pneumonitis Agree with the stopping of the amiodarone Should continue using the BiPAP during the daytime as needed in at nighttime Diuresis as tolerated The pleural effusions are bilateral likely from volume overload. If his respiratory symptoms worsen could consider thoracentesis but at this point I believe there is transudatived Guarded condition Time Spent With Patient Time: Total time spent is greater than 50% in coordination of care (as documented) at patient's floor/unit and/or counseling patient: Time with patient: 15 - 24 minutes Progress Note: Quality Stroke Does the patient have a stroke diagnosis?: No
[2021-07-05 13:31] LABS: Venous Blood Gas Refer to POC result
[2021-07-05 13:31] LABS: VBG Base Excess 4.8 mmol/L; VBG HCO3 30 mmol/L (22-26); VBG pCO2 50 mmHg; VBG pH 7.39 (7.32-7.43); VBG pO2 48 mmHg
[2021-07-05] MEDS: methylPREDNISolone Sod Succ 125 MG/2 ML VIAL 60 MG IVPUSH ×2 (13:41→21:27)
--- NOTE | 2021-07-05 14:07 | MHC.SLORD ---
Speech Language Pathology Order Status: Patient is rfusing any PO and reports that he just wants to go home . Spoke with Nsg and she reported that pt is tolerating small bites and sips without s/s of aspiration.
[2021-07-05 14:09] LABS: Venous Blood Gas Refer to POC result
--- NOTE | 2021-07-05 14:16 | MHC.CLN ---
F/U PATIENT EXTUBATED 07/01. SKIN WITH STAGE II BILATERAL BUTTOCKS. PATIENT WITH CHF AND CKD. SEEN BY CLINICAL PRACTITIONER FOR DIET CONSISTENCY. DIET=DIABETIC 2200 KCAL, 2 GRAM SODIUM, PUREE WITH NECTAR THICK LIQUIDS. ADDING GLUCERNA BID (474 KCALS, 20 G PROTEIN) TO IMPROVE NUTRITIONAL STATUS AND PROMOTE WOUND HEALING. MONITOR PO INTAKE CLOSELY.
[2021-07-05 15:03] LABS: Erythrocyte Sedimentation Rate 23 MM/HR (0-15)
--- NOTE | 2021-07-05 15:15 | P.PNIM_ITS ---
Subjective Subjective Date of Service: 07/05/21 Interval History: patient this morning was noted to be awake alert, complained of shortness of breath treated with updraft treatment with some improvement, later in the afternoon noted to be tired and again complained of shortness of breath, therefore placed on BiPAP, has decreased by mouth intake, no overnight fever chills, no nausea no vomiting, Villa catheter with clear urine. Review of Systems Review of Systems: Yes all other systems are reviewed and are negative Physical Exam Verdana 4l Vital Signs: Verdana 4d Verdana 4d Vital Signs: Verdana 4d Verdana 4Bd Last Vital Signs Verdana 4d Mercerizing Range Controller New 4d Mercerizing Range Controller New 4d Temp 97.6 F 07/05/21 12:00 Mercerizing Range Controller New 4d Pulse 72 07/05/21 12:00 Mercerizing Range Controller New 4d Resp 29 H 07/05/21 13:37 BP 159/68 H 07/05/21 12:00 Pulse Ox 92 07/05/21 12:00 Oxygen Flow Rate 10 07/04/21 10:00 BMI result Body Mass Index 35.0 Const: Other: JGen:? Awake alert, in respiratory di stress, Tachypnei c, no confusion HE ENT: sclera anicte srinivas, moist mucus m embranes Neck: sup ple,no jvd Lungs:? bilateral rhonchi , diminished breat h sounds, use of a bdominal muscles Heart:regular, no murmurs Abd: soft, non-tender, obese , bowel sounds aud ible Ext: trace ed margaret Skin: diffuse rash torso and ext remities Neuro: aw giuliana ,alert , no fo javier findings Psych : appropriate affe ct Objective Data Active Medications Finasteride (Finasteride 5 Mg Tablet) 5 mg PO DAILY ON LICENSE OF [facility] Last Admin: 06/30/21 09:05 Dose: 5 mg Documented by: BRANDON Daptomycin 900 mg/ Sodium (Chloride) 68 mls @ 136 mls/hr IV Q24H ON LICENSE OF [facility] Last Infusion: 07/04/21 21:45 Dose: 0 mls/hr Documented by: NIRAVILTanika Furosemide 200 mg/ Sodium (Chloride) 100 mls @ 5 mls/hr IVCONT .Q20H ON LICENSE OF [facility] Insulin Human Lispro (Insulin Lispro 100 Unit/Ml 3 Ml Vial) 0 unit SUBCUT QIDACHS ON LICENSE OF [facility]; Protocol Last Admin: 07/05/21 11:50 Dose: 6 unit Documented by: GURJIT Isosorbide Mononitrate (Isosorbide Mononitrate 30 Mg Tab.Er.24h) 30 mg PO DAILY ON LICENSE OF [facility]; Protocol Last Admin: 07/05/21 14:28 Dose: Not Given Documented by: GURJIT Non-Admin Reason: ON BIPAP AT PRESENT Levalbuterol HCl (Levalbuterol Hcl 1.25 Mg/0.5 Ml Vial.Neb) 1.25 mg INHALE QID ON LICENSE OF [facility] Methylprednisolone Sodium Succinate (Methylprednisolone Sod Succ 125 Mg/2 Ml Vial) 60 mg IVPUSH Q8H ON LICENSE OF [facility] Last Admin: 07/05/21 13:41 Dose: 60 mg Documented by: GURJIT Metoprolol Tartrate (Metoprolol Tartrate 25 Mg Tablet) 75 mg PO BID ON LICENSE OF [facility]; Protocol Last Admin: 07/05/21 07:52 Dose: 75 mg Documented by: GURJIT Omeprazole (Omeprazole 20 Mg/10 Ml Susp.Recon) 40 mg PO BID@0630,1630 ON LICENSE OF [facility] Last Admin: 07/05/21 05:57 Dose: 40 mg Documented by: CASTILM Sodium Chloride (0.9 % Sodium Chloride Flush 3 Ml Syringe) 3 ml IVFLUSH QSHIFT ON LICENSE OF [facility] Last Admin: 07/05/21 07:53 Dose: 3 ml Documented by: GURJIT Labs CBC & Chem 7: 07/05/21 08:22 07/05/21 08:22 Labs: Laboratory Results - last 24 hr 06/08/21 06/08/21 06/09/21 18:09 23:11 08:01 MCV MCH MCHC RDW Plt Count MPV Immature Gran % (Auto) Neut % (Auto) Lymph % (Auto) [place] % (Auto) Eos % (Auto) Baso % (Auto) Lymph # (Auto) [place] # (Auto) Eos # (Auto) Baso # (Auto) Abs Immat Gran (auto) Absolute Neuts (auto) Absolute Nucleated RBC Nucleated RBC % (auto) Smear Tech's Comments ESR VBG pH VBG pCO2 VBG pO2 VBG HCO3 VBG O2 Saturation VBG Base Excess Anion Gap Creatinine 2.76 H 2.60 H 2.56 H Estim Creat Clear Calc Estimated GFR POC Glucose Random Glucose Calcium B-Natriuretic Peptide TSH 06/10/21 06/11/21 06/11/21 13:27 06:41 12:43 MCV MCH MCHC RDW Plt Count MPV Immature Gran % (Auto) Neut % (Auto) Lymph % (Auto) [place] % (Auto) Eos % (Auto) Baso % (Auto) Lymph # (Auto) [place] # (Auto) Eos # (Auto) Baso # (Auto) Abs Immat Gran (auto) Absolute Neuts (auto) Absolute Nucleated RBC Nucleated RBC % (auto) Smear Tech's Comments ESR VBG pH VBG pCO2 VBG pO2 VBG HCO3 VBG O2 Saturation VBG Base Excess Anion Gap Creatinine 2.15 H 1.90 H 2.16 H Estim Creat Clear Calc Estimated GFR POC Glucose Random Glucose Calcium B-Natriuretic Peptide [facility] 06/12/21 06/13/21 06/14/21 05:30 05:36 05:43 MCV MCH MCHC RDW Plt Count MPV Immature Gran % (Auto) Neut % (Auto) Lymph % (Auto) [place] % (Auto) Eos % (Auto) Baso % (Auto) Lymph # (Auto) [place] # (Auto) Eos # (Auto) Baso # (Auto) Abs Immat Gran (auto) Absolute Neuts (auto) Absolute Nucleated RBC Nucleated RBC % (auto) Smear Tech's Comments ESR VBG pH VBG pCO2 VBG pO2 VBG HCO3 VBG O2 Saturation VBG Base Excess Anion Gap Creatinine 1.93 H 1.70 H 1.45 H Estim Creat Clear Calc Estimated GFR POC Glucose Random Glucose Calcium B-Natriuretic Peptide [facility] 06/15/21 06/15/21 06/16/21 06:04 16:00 08:29 MCV MCH MCHC RDW Plt Count MPV Immature Gran % (Auto) Neut % (Auto) Lymph % (Auto) [place] % (Auto) Eos % (Auto) Baso % (Auto) Lymph # (Auto) [place] # (Auto) Eos # (Auto) Baso # (Auto) Abs Immat Gran (auto) Absolute Neuts (auto) Absolute Nucleated RBC Nucleated RBC % (auto) Smear Tech's Comments ESR VBG pH VBG pCO2 VBG pO2 VBG HCO3 VBG O2 Saturation VBG Base Excess Anion Gap Creatinine 1.35 1.36 1.13 Estim Creat Clear Calc Estimated GFR POC Glucose Random Glucose Calcium B-Natriuretic Peptide [facility] 06/17/21 06/18/21 06/19/21 05:20 05:44 05:16 MCV MCH MCHC RDW Plt Count MPV Immature Gran % (Auto) Neut % (Auto) Lymph % (Auto) [place] % (Auto) Eos % (Auto) Baso % (Auto) Lymph # (Auto) [place] # (Auto) Eos # (Auto) Baso # (Auto) Abs Immat Gran (auto) Absolute Neuts (auto) Absolute Nucleated RBC Nucleated RBC % (auto) Smear Tech's Comments ESR VBG pH VBG pCO2 VBG pO2 VBG HCO3 VBG O2 Saturation VBG Base Excess Anion Gap Creatinine 1.12 1.20 1.25 Estim Creat Clear Calc Estimated GFR POC Glucose Random Glucose Calcium B-Natriuretic Peptide [facility] 06/19/21 06/20/21 06/21/21 17:40 05:35 05:20 MCV MCH MCHC RDW Plt Count MPV Immature Gran % (Auto) Neut % (Auto) Lymph % (Auto) [place] % (Auto) Eos % (Auto) Baso % (Auto) Lymph # (Auto) [place] # (Auto) Eos # (Auto) Baso # (Auto) Abs Immat Gran (auto) Absolute Neuts (auto) Absolute Nucleated RBC Nucleated RBC % (auto) Smear Tech's Comments ESR VBG pH VBG pCO2 VBG pO2 VBG HCO3 VBG O2 Saturation VBG Base Excess Anion Gap Creatinine 1.13 1.32 1.64 H Estim Creat Clear Calc Estimated GFR POC Glucose Random Glucose Calcium B-Natriuretic Peptide [facility] 06/22/21 06/23/21 06/24/21 06:04 06:37 06:33 MCV MCH MCHC RDW Plt Count MPV Immature Gran % (Auto) Neut % (Auto) Lymph % (Auto) [place] % (Auto) Eos % (Auto) Baso % (Auto) Lymph # (Auto) [place] # (Auto) Eos # (Auto) Baso # (Auto) Abs Immat Gran (auto) Absolute Neuts (auto) Absolute Nucleated RBC Nucleated RBC % (auto) Smear Tech's Comments ESR VBG pH VBG pCO2 VBG pO2 VBG HCO3 VBG O2 Saturation VBG Base Excess Anion Gap Creatinine 1.92 H 1.92 H 1.74 H Estim Creat Clear Calc Estimated GFR POC Glucose Random Glucose Calcium B-Natriuretic Peptide [facility] 06/25/21 06/26/2106/28/22 06:13 06:16 08:03 MCV MCH MCHC RDW Plt Count MPV Immature Gran % (Auto) Neut % (Auto) Lymph % (Auto) [place] % (Auto) Eos % (Auto) Baso % (Auto) Lymph # (Auto) [place] # (Auto) Eos # (Auto) Baso # (Auto) Abs Immat Gran (auto) Absolute Neuts (auto) Absolute Nucleated RBC Nucleated RBC % (auto) Smear Tech's Comments ESR VBG pH VBG pCO2 VBG pO2 VBG HCO3 VBG O2 Saturation VBG Base Excess Anion Gap Creatinine 1.58 H 1.57 H 1.52 H Estim Creat Clear Calc Estimated GFR POC Glucose Random Glucose Calcium B-Natriuretic Peptide [facility] 06/28/21 06/29/21 06/29/21 19:59 07:13 14:36 MCV MCH MCHC RDW Plt Count MPV Immature Gran % (Auto) Neut % (Auto) Lymph % (Auto) [place] % (Auto) Eos % (Auto) Baso % (Auto) Lymph # (Auto) [place] # (Auto) Eos # (Auto) Baso # (Auto) Abs Immat Gran (auto) Absolute Neuts (auto) Absolute Nucleated RBC Nucleated RBC % (auto) Smear Tech's Comments ESR VBG pH VBG pCO2 VBG pO2 VBG HCO3 VBG O2 Saturation VBG Base Excess Anion Gap Creatinine 1.64 H 1.52 H 1.65 H Estim Creat Clear Calc Estimated GFR POC Glucose Random Glucose Calcium B-Natriuretic Peptide [facility] 06/30/21 06/30/21 07/01/21 05:25 16:48 05:28 MCV MCH MCHC RDW Plt Count MPV Immature Gran % (Auto) Neut % (Auto) Lymph % (Auto) [place] % (Auto) Eos % (Auto) Baso % (Auto) Lymph # (Auto) [place] # (Auto) Eos # (Auto) Baso # (Auto) Abs Immat Gran (auto) Absolute Neuts (auto) Absolute Nucleated RBC Nucleated RBC % (auto) Smear Tech's Comments ESR VBG pH VBG pCO2 VBG pO2 VBG HCO3 VBG O2 Saturation VBG Base Excess Anion Gap Creatinine 2.01 H 2.17 H 2.21 H Estim Creat Clear Calc Estimated GFR POC Glucose Random Glucose Calcium B-Natriuretic Peptide [facility] 01/07/02/21 07/02/21 16:50 05:25 15:45 MCV MCH MCHC RDW Plt Count MPV Immature Gran % (Auto) Neut % (Auto) Lymph % (Auto) [place] % (Auto) Eos % (Auto) Baso % (Auto) Lymph # (Auto) [place] # (Auto) Eos # (Auto) Baso # (Auto) Abs Immat Gran (auto) Absolute Neuts (auto) Absolute Nucleated RBC Nucleated RBC % (auto) Smear Tech's Comments ESR VBG pH VBG pCO2 VBG pO2 VBG HCO3 VBG O2 Saturation VBG Base Excess Anion Gap Creatinine 2.29 H 2.13 H 2.16 H Estim Creat Clear Calc Estimated GFR POC Glucose Random Glucose Calcium B-Natriuretic Peptide TSH 07/03/21 07/04/21 07/04/21 05:10 15:47 16:59 MCV MCH MCHC RDW Plt Count MPV Immature Gran % (Auto) Neut % (Auto) Lymph % (Auto) [place] % (Auto) Eos % (Auto) Baso % (Auto) Lymph # (Auto) [place] # (Auto) Eos # (Auto) Baso # (Auto) Abs Immat Gran (auto) Absolute Neuts (auto) Absolute Nucleated RBC Nucleated RBC % (auto) Smear Tech's Comments ESR VBG pH VBG pCO2 VBG pO2 VBG HCO3 VBG O2 Saturation VBG Base Excess Anion Gap 13 Creatinine 2.13 H 2.19 H Estim Creat Clear Calc 38.4 Estimated GFR 29 POC Glucose 152 H Random Glucose 157 H Calcium 8.2 L B-Natriuretic Peptide TSH 07/04/21 07/04/21 07/04/21 16:59 17:05 19:47 MCV MCH MCHC RDW Plt Count MPV Immature Gran % (Auto) Neut % (Auto) Lymph % (Auto) [place] % (Auto) Eos % (Auto) Baso % (Auto) Lymph # (Auto) [place] # (Auto) Eos # (Auto) Baso # (Auto) Abs Immat Gran (auto) Absolute Neuts (auto) Absolute Nucleated RBC Nucleated RBC % (auto) Smear Tech's Comments ESR VBG pH 7.44 H VBG pCO2 53 VBG pO2 50 VBG HCO3 36 H VBG O2 Saturation 79.0 VBG Base Excess 10.9 Anion Gap Creatinine Estim Creat Clear Calc Estimated GFR POC Glucose 144 H Random Glucose Calcium B-Natriuretic Peptide 3316 H TSH 07/05/21 07/05/21 07/05/21 05:38 05:38 07:16 MCV 96.1 MCH 29.0 MCHC 30.2 L RDW 19.0 H Plt Count 145 L MPV 12.6 H Immature Gran % (Auto) 2.0 H Neut % (Auto) 93.6 H Lymph % (Auto) 3.6 L [place] % (Auto) 0.6 L Eos % (Auto) 0.0 Baso % (Auto) 0.2 Lymph # (Auto) 0.6 L [place] # (Auto) 0.1 Eos # (Auto) 0.0 Baso # (Auto) 0.0 Abs Immat Gran (auto) 0.33 H Absolute Neuts (auto) 15.5 H Absolute Nucleated RBC 0.040 H Nucleated RBC % (auto) 0.2 Smear Tech's Comments VERIFIED ESR VBG pH VBG pCO2 VBG pO2 VBG HCO3 VBG O2 Saturation VBG Base Excess Anion Gap 23 H Creatinine 2.56 H Estim Creat Clear Calc 32.9 Estimated GFR 25 POC Glucose 313 H Random Glucose 319 H D Calcium 8.3 L B-Natriuretic Peptide TSH 07/05/21 07/05/21 07/05/21 08:22 08:22 08:22 MCV 96.4 MCH 29.1 MCHC 30.2 L RDW 19.0 H Plt Count 135 L MPV 11.8 Immature Gran % (Auto) 2.0 H Neut % (Auto) 94.0 H Lymph % (Auto) 3.2 L [place] % (Auto) 0.7 L Eos % (Auto) 0.0 Baso % (Auto) 0.1 Lymph # (Auto) 0.5 L [place] # (Auto) 0.1 Eos # (Auto) 0.0 Baso # (Auto) 0.0 Abs Immat Gran (auto) 0.32 H Absolute Neuts (auto) 15.2 H Absolute Nucleated RBC 0.030 H Nucleated RBC % (auto) 0.2 Smear Tech's Comments ESR VBG pH VBG pCO2 VBG pO2 VBG HCO3 VBG O2 Saturation VBG Base Excess Anion Gap 20 Creatinine 2.64 H Estim Creat Clear Calc 31.9 Estimated GFR 24 POC Glucose Random Glucose 351 H* Calcium 8.1 L B-Natriuretic Peptide 3197 H TSH 0.93 07/05/21 07/05/21 07/05/21 08:25 11:13 13:20 MCV MCH MCHC RDW Plt Count MPV Immature Gran % (Auto) Neut % (Auto) Lymph % (Auto) [place] % (Auto) Eos % (Auto) Baso % (Auto) Lymph # (Auto) [place] # (Auto) Eos # (Auto) Baso # (Auto) Abs Immat Gran (auto) Absolute Neuts (auto) Absolute Nucleated RBC Nucleated RBC % (auto) Smear Tech's Comments ESR 23 H VBG pH 7.31 L VBG pCO2 56 VBG pO2 59 VBG HCO3 28 H VBG O2 Saturation 83.0 VBG Base Excess 1.9 Anion Gap Creatinine Estim Creat Clear Calc Estimated GFR POC Glucose 299 H Random Glucose Calcium B-Natriuretic Peptide TSH 07/05/21 13:25 MCV MCH MCHC RDW Plt Count MPV Immature Gran % (Auto) Neut % (Auto) Lymph % (Auto) [place] % (Auto) Eos % (Auto) Baso % (Auto) Lymph # (Auto) [place] # (Auto) Eos # (Auto) Baso # (Auto) Abs Immat Gran (auto) Absolute Neuts (auto) Absolute Nucleated RBC Nucleated RBC % (auto) Smear Tech's Comments ESR VBG pH 7.39 VBG pCO2 50 VBG pO2 48 VBG HCO3 30 H VBG O2 Saturation 76.0 VBG Base Excess 4.8 Anion Gap Creatinine Estim Creat Clear Calc Estimated GFR POC Glucose Random Glucose Calcium B-Natriuretic Peptide TSH Microbiology Microbiology Results: Microbiology 06/29/21 15:20 Blood Culture - Final Blood - Venous No growth after 5 days. 06/29/21 15:20 Blood Culture - Final Blood - Venous No growth after 5 days. Assessment and Plan (1) Persistent atrial fibrillation: Status: Acute (2) Heart failure with preserved ejection fraction: Status: Acute (3) Elevated brain natriuretic peptide (BNP) level: Status: Acute (4) Diabetes: Status: Acute (5) Acute respiratory distress syndrome (ARDS) due to COVID-19 virus: Status: Acute (6) Morbid obesity: Status: Acute Plan 76-year-old gentleman with past medical history of obesity hypertension hyperlipidemia diabetes BPH and arthritis admitted to [facility] on June 08 with generalized weakness, shortness of breath and cough patient in the ER was noted to be new AFib with RVR saturation 94% on room air he was COVID-19 positive chest x-ray showed nonspecific bibasilar markings with blunting of both angles D-dimer was 08/03/1999 creatinine 91/2.7, patient was treated with diltiazem metoprolol admitted to Medicine and placed on full-dose Lovenox blood cultures came back positive for MSSA on June 10 patient noted to have a black bowel movement him at 2 crit and blood pressure dropped patient was given blood transfusion later on blood pressure dropped further he was transferred to ICU was given blood and protamine taken to OR by Dr. Mae underwent upper endoscopy June 11 that showed multiple duodenal ulcers with active bleeding from a visible vessel in a 15 in to 20 mm ulcer at the junction between bulb and 2nd duodenum bleeding was controlled patient had no further episodes of GI bleed patient was treated on IM where he was noted to be in acute congestive heart failure treated with IV Lasix drip he was noted to be on in and out of atrial fibrillation, patient was continued on IV cefazolin for MSSA bacteremia I [place] catheter was placed on June 28 which she pulled the same evening on June 29 patient was noted to be in significant respiratory distress with shallow breathing saturation dropped to 70s on a non-rebreather mask therefore patient was tossed with to ICU after being placed on BiPAP very required intubation patient treated in ICU with IV Cardizem drip subsequent to transition to IV amiodarone drip, also required IV Lasix drip and IV heparin with concern for cardiac ischemia with in and out of atrial fibrillation patient was subsequently extubated and transferred down to medical floor on 07/03 Acute resp failure with hypoxia and hypercarbic respiratory failure question etiology multifactorial likely due to COVID/ARDS, due to congestive heart failure, obesity hypoventilation syndrome, less likely infection question amiodarone toxicity patient noted to be short of breath this morning treated with updraft treatment, IV steroids continue to have persistent shortness of breath and respiratory distress therefore placed on BiPAP and IV Lasix drip initiated by elementary librarian patient awake alert and not confused this a.m. CT chest from this morning shows bilateral opacities and bilateral pleural effusion, with concern for amiodarone toxicity amiodarone discontinued patient started on IV Solu-Medrol for possible pneumonitis is on IV daptomycin for MSSA will add scheduled updraft treatment, repeat VBGs showing stable pH and pCO2 but shows hypoxia patient also evaluated by artificial teeth inspector Dr. Marshall he agreed with current treatment with diuretics, steroids and agreed with stopping amiodarone continue close monitoring with BiPAP prn during daytime and overnight follow BMP/ BNP I's and O's /magnesium daily low threshold to transfer to ICU if noted to have worsening respiratory distress hypoxia on hypercarbic respiratory failure, elementary librarian following patient closely acute toxic metabolic encephalopathy due to hypercarbic respiratory failure resolved, patient awake alert this morning. acute congestive heart failure with preserved EF due to persistent shortness of breath hypoxia resume IV Lasix drip follow renal function and BNP , daily weight, I's and O's ,case discussed with Dr. Chan./ Dr. Blankenship PAfib.? In and out of afib likely cause of pulmonary edema.?continue metoprolol 75mg by mouth b.i.d., case discussed with Dr. Finch he okayed to resume Eliquis Elevated troponin, troponin elevated throughout hospitalization up to 988.then down to 480, echocardiogram showed no wall motion abnormality, likely atrial fibrillation causing ischemia, will need ischemic workup, status post IV heparin drip. Acute on CKD.? being followed closely by Nephrology, likely due to tubular injury, creatinine bumped today, question cardio renal syndrome, follow BMP closely while being diuresed ?s/p GI bleed , underwent EGD 06/[address] Mae multiple duodenal ulcers, active bleeding from a visible vessel in a 15x20 mm ulcer, bleeding controlled with 3ml epinephrine and gold probe cautery no recurrent bleeding noted stool guaiac July 03 negative On Prilosec 40 mg bid Anemia due to GI blood loss.? status post 2 units of packed RBC in ICU, hematocrit stable since. follow CBC closely, watch for GI bleed ?MSSA bacteremia.? ? if he has aortic valve vegetation, was on cefazolin, changed to Daptomycin because of a rash, seen by Dr. Priest she recommend to continue daptomycin to complete course thru 07/11/21? is spoke with ID regarding concern for endocarditis she feels patient does not have any sequela of endocarditis she recommend to treat for 4 weeks of antibiotics, DM.? blood sugars elevated likely due to steroids continue diabetic diet and correction dose insulin was on glipizide and pioglitazone at home Stage II pressure ulcer on coccyx/bilateral buttock,?frequent position change, high-protein diet and barrier cream code status full code DVT prophylaxis with compression boots/ resume Eliquis Quality Stroke Does the patient have a stroke diagnosis?: No VTE Prior VTE?: No VTE Risk Level:: Medical - moderate - high VTE Device Contraindication: Treatment Not Indicated VTE Drug Contraindication: Treatment Not Indicated
--- NOTE | 2021-07-05 15:15 | MHC.CM.PN ---
EMR REVIEWED, PT STARTED ON IV SOLU-MEDROL, 8L O2 NC W/BIPAP AT [facility] AND PRN, PT REMAINS ON IV DAPTO, NO PLAN FOR D/C TODAY, CM WILL CONT TO MONITOR D/C NEEDS. D/C PLAN: CARE ONE OF [facility] FOR IV ABX W/ACTION FOR BLS TRANSPORT.
[2021-07-05] MEDS: Furosemide 40 MG/4 ML VIAL IVPUSH (15:22)
[2021-07-05] MEDS: Furosemide 200 MG in 0.9 % Sodium Chloride 80 ML IVCONT (15:42)
--- NOTE | 2021-07-05 16:09 | PC.NURSE ---
P patient took off his bipap ,sat 80% on RA when RN walked in to assess I Bipap mask applied back on,Dr. Noland in to assess patient,Resp. Therapist in ,switched to 15l via Dhaliwal cannula since patient refused Bipap,IV lasix push administered as ordered,started patient on lasix drip as ordered E Villa is draining deena urine ,sat 93 % on 15 l via Dhaliwal cannula at present,
--- NOTE | 2021-07-05 16:11 | HE.PHANOTE ---
re eliquis dosing Regarding 2.5mg BID vs 5mg BID dosing. The patient qualifies for 5mg BID dosing, but Dr Noland wants to give 2.5mg BID x at least a week before increasing dose to due PMH of hemorrhage Thanks Norbert
--- NOTE | 2021-07-05 16:16 | PC.NURSE ---
P notified by [facility] [employer] that patient just went in [place] I Dr. Noland notified E will monitor
[2021-07-05 16:29] LABS: Glucose, Whole Blood 246 mg/dL (60-115)
--- NOTE | 2021-07-05 17:11 | PC.NURSE ---
patient transferred to ICU,report given to RN Weston,made aware of Digoxin and Cardizem needed to be administered
--- NOTE | 2021-07-05 17:18 | P.PNCC_ITS ---
Subjective Subjective Date of Service: 07/05/21 Interval History: 76-year-old male 1 month in the hospital and intubated for 3 weeks of that time now extubated for 3 days approximately he came in with dyspnea was noted to be COVID positive but was also noted with new onset of paroxysmal atrial fibrillation with rapid ventricular response and initially felt to be in heart failure and and developed a upper GI bleed and emergent an endoscopy done with general anesthesia and intubation showed multiple duodenal ulcers with a visible bleeding vessel which was cauterized and clipped and his hemoglobin has been pretty stable since that time He is moderately obese individual with diastolic CHF preserved ejection fraction and he progressed well intubated to developing an ARDS picture which we felt could be COVID related and it kept him intubated for the better part of 3 weeks and if finally a boil down to good weaning of his FiO2 diminished minute ventilatory requirements but CVP measurements continue to be elevated and he continued to have increased respiratory effort which seem to be based on increased intrathoracic volume so he was aggressively diuresed and again this is in the face of stage III chronic renal failure any had did have an acute on chronic component in and eventually he was started on IV amiodarone to preserve normal sinus rhythm When he was diuresed to a comfortable CVP he was extubated was on nasal high- flow doing well and became acutely dyspneic on the floor transfer down the acute dyspnea initially took place while he was in sinus rhythm at a rate of 55-60 so the rhythm was not the primary issue he had then several hours later converted back to atrial flutter with a rapid ventricular response received some loading doses of digoxin and needed to be started on a Cardizem drip for refer reasonable rate control and placed on BiPAP and he became much more comfortable very quickly and during that time I did a bedside echo and what appear to have been mild aortic insufficiency since the time of admission now looked to be severe at this point with a hyperdynamic ventricle and the initial thickening of the non coronary cusp of the aortic valve now appear to be more significantly so and when admitted he was noted to have 4/4 blood cultures growing MSSA and he was treated every day for the last month with antibiotics because it was sensitive to nearly everything He developed a diffuse erythroderma co response at the time he was started on I believe Kefzol along with amiodarone so we could not differentiate and the rash seemed to become more intense after daptomycin so all of the above were discontinued including the amiodarone and he was changed to vancomycin to which we knew we had no reaction Critical Care Time (minutes): 60 Physical Exam Verdana 4l Vital Signs: Verdana 4d Verdana 4d Vital Signs: Verdana 4d Verdana 4Bd Last Vital Signs Verdana 4d Inspector Penetrant New 4d Inspector Penetrant New 4d Temp 97.6 F 07/05/21 15:17 Inspector Penetrant New 4d Pulse 68 07/05/21 15:17 Inspector Penetrant New 4d Resp 18 07/05/21 15:17 BP 154/86 H 07/05/21 15:17 Pulse Ox 91 L 07/05/21 15:17 Oxygen Flow Rate 10 07/04/21 10:00 BMI result Body Mass Index 35.0 He is awake and alert and conversational and mildly tachypneic but mom much diminished use of accessory muscles and diaphragm Neurologically nonfocal Bilateral rales and wheezing which is now diminished Bedside echo with hyperdynamic left ventricle no change in right ventricular size and no increase in degree of pulmonary hypertension significantly so I doubt pulmonary embolism and he had globally preserved systolic wall motion of the ventricle early ejection fraction exceeding 70% and what appears to be a markedly thickened and dysfunctional non coronary cusp of the aortic valve with an aortic regurgitant jet filling the entire outflow tract and penetrating to the apex of the ventricle Objective Data Labs CBC & Chem 7: 07/06/21 05:20 07/06/21 05:20 Labs: Laboratory Results - last 24 hr 07/04/21 07/04/21 07/04/21 16:59 16:59 19:47 WBC RBC Hgb Hct MCV MCH MCHC RDW Plt Count MPV Immature Gran % (Auto) Neut % (Auto) Lymph % (Auto) Reynolds % (Auto) Eos % (Auto) Baso % (Auto) Lymph # (Auto) Reynolds # (Auto) Eos # (Auto) Baso # (Auto) Abs Immat Gran (auto) Absolute Neuts (auto) Absolute Nucleated RBC Nucleated RBC % (auto) Smear Tech's Comments ESR VBG pH VBG pCO2 VBG pO2 VBG HCO3 VBG O2 Saturation VBG Base Excess Sodium 145 Potassium 3.3 Chloride 102 Carbon Dioxide 33 H Anion Gap 13 BUN 77 H Creatinine 2.19 H Estim Creat Clear Calc 38.4 Estimated GFR 29 POC Glucose 144 H Random Glucose 157 H Calcium 8.2 L B-Natriuretic Peptide 3316 H TSH 07/05/21 07/05/21 07/05/21 05:38 05:38 07:16 WBC 16.6 H RBC 3.34 L Hgb 9.7 L Hct 32.1 L MCV 96.1 MCH 29.0 MCHC 30.2 L RDW 19.0 H Plt Count 145 L MPV 12.6 H Immature Gran % (Auto) 2.0 H Neut % (Auto) 93.6 H Lymph % (Auto) 3.6 L Reynolds % (Auto) 0.6 L Eos % (Auto) 0.0 Baso % (Auto) 0.2 Lymph # (Auto) 0.6 L Reynolds # (Auto) 0.1 Eos # (Auto) 0.0 Baso # (Auto) 0.0 Abs Immat Gran (auto) 0.33 H Absolute Neuts (auto) 15.5 H Absolute Nucleated RBC 0.040 H Nucleated RBC % (auto) 0.2 Smear Tech's Comments VERIFIED ESR VBG pH VBG pCO2 VBG pO2 VBG HCO3 VBG O2 Saturation VBG Base Excess Sodium 145 Potassium 4.3 D Chloride 100 Carbon Dioxide 26 Anion Gap 23 H BUN 86 H Creatinine 2.56 H Estim Creat Clear Calc 32.9 Estimated GFR 25 POC Glucose 313 H Random Glucose 319 H D Calcium 8.3 L B-Natriuretic Peptide TSH 07/05/21 07/05/21 07/05/21 08:22 08:22 08:22 WBC 16.1 H RBC 3.30 L Hgb 9.6 L Hct 31.8 L MCV 96.4 MCH 29.1 MCHC 30.2 L RDW 19.0 H Plt Count 135 L MPV 11.8 Immature Gran % (Auto) 2.0 H Neut % (Auto) 94.0 H Lymph % (Auto) 3.2 L Reynolds % (Auto) 0.7 L Eos % (Auto) 0.0 Baso % (Auto) 0.1 Lymph # (Auto) 0.5 L Reynolds # (Auto) 0.1 Eos # (Auto) 0.0 Baso # (Auto) 0.0 Abs Immat Gran (auto) 0.32 H Absolute Neuts (auto) 15.2 H Absolute Nucleated RBC 0.030 H Nucleated RBC % (auto) 0.2 Smear Tech's Comments ESR VBG pH VBG pCO2 VBG pO2 VBG HCO3 VBG O2 Saturation VBG Base Excess Sodium 144 Potassium 4.3 Chloride 100 Carbon Dioxide 28 Anion Gap 20 BUN 89 H Creatinine 2.64 H Estim Creat Clear Calc 31.9 Estimated GFR 24 POC Glucose Random Glucose 351 H* Calcium 8.1 L B-Natriuretic Peptide 3197 H TSH 0.93 07/05/21 07/05/21 07/05/21 08:25 11:13 13:20 WBC RBC Hgb Hct MCV MCH MCHC RDW Plt Count MPV Immature Gran % (Auto) Neut % (Auto) Lymph % (Auto) Reynolds % (Auto) Eos % (Auto) Baso % (Auto) Lymph # (Auto) Reynolds # (Auto) Eos # (Auto) Baso # (Auto) Abs Immat Gran (auto) Absolute Neuts (auto) Absolute Nucleated RBC Nucleated RBC % (auto) Smear Tech's Comments ESR 23 H VBG pH 7.31 L VBG pCO2 56 VBG pO2 59 VBG HCO3 28 H VBG O2 Saturation 83.0 VBG Base Excess 1.9 Sodium Potassium Chloride Carbon Dioxide Anion Gap BUN Creatinine Estim Creat Clear Calc Estimated GFR POC Glucose 299 H Random Glucose Calcium B-Natriuretic Peptide TSH 07/05/21 07/05/21 13:25 16:20 WBC RBC Hgb Hct MCV MCH MCHC RDW Plt Count MPV Immature Gran % (Auto) Neut % (Auto) Lymph % (Auto) Reynolds % (Auto) Eos % (Auto) Baso % (Auto) Lymph # (Auto) Reynolds # (Auto) Eos # (Auto) Baso # (Auto) Abs Immat Gran (auto) Absolute Neuts (auto) Absolute Nucleated RBC Nucleated RBC % (auto) Smear Tech's Comments ESR VBG pH 7.39 VBG pCO2 50 VBG pO2 48 VBG HCO3 30 H VBG O2 Saturation 76.0 VBG Base Excess 4.8 Sodium Potassium Chloride Carbon Dioxide Anion Gap BUN Creatinine Estim Creat Clear Calc Estimated GFR POC Glucose 246 H Random Glucose Calcium B-Natriuretic Peptide TSH Microbiology Microbiology Results: Microbiology 06/29/21 15:20 Blood - Venous Blood Culture - Final No growth after 5 days. 06/29/21 15:20 Blood - Venous Blood Culture - Final No growth after 5 days. 06/30/21 02:16 Sputum - Suctioned Gram Stain - Final 06/30/21 02:16 Sputum - Suctioned Sputum Culture - Final 06/29/21 20:32 Urine Catheterized - Villa Catheter Urine Culture - Final No growth. 06/19/21 14:54 Blood - Venous Blood Culture - Final No growth after 5 days. 06/19/21 14:55 Blood - Venous Blood Culture - Final No growth after 5 days. 06/09/21 17:15 Blood - Venous Blood Culture - Final Staphylococcus aureus 06/09/21 17:10 Blood - Venous Blood Culture - Final Staphylococcus aureus 06/08/21 23:11 Blood - Venous Blood Culture - Final Staphylococcus aureus 06/08/21 23:11 Blood - Venous Blood Culture - Final Staphylococcus aureus Progress Note: A&P Assessment and plan (1) Non-rheumatic aortic regurgitation: Status: Acute (2) Pleural effusion: Status: Acute (3) Acute respiratory failure: Status: Acute (4) Persistent atrial fibrillation: Status: Acute (5) Acute heart failure: Status: Acute (6) Heart failure with preserved ejection fraction: Status: Acute (7) Paroxysmal A-fib: Status: Acute (8) Elevated brain natriuretic peptide (BNP) level: Status: Acute (9) Diabetes: Status: Acute (10) Acute respiratory distress syndrome (ARDS) due to COVID-19 virus: Status: Acute (11) Morbid obesity: Status: Acute (12) Thrombocytopenia associated with severe acute respiratory syndrome coronavirus 2 (SARS-CoV-2) infection: Status: Acute (13) Acute hypoxemic respiratory failure: Status: Acute (14) Acute non-ST elevation myocardial infarction (NSTEMI): Status: Acute (15) GI bleed: Status: Acute (16) Hypotension: Status: Acute (17) Bacteremia due to Gram-positive bacteria: Status: Acute (18) Atrial fibrillation with rapid ventricular response: Status: Acute (19) Acute renal failure: Status: Acute (20) COVID-19: Status: Acute (21) Weakness: Status: Acute (22) Nocturia associated with benign prostatic hyperplasia: Status: Acute (23) BPH w urinary obs/LUTS: Status: Acute (24) Elevated prostate specific antigen [PSA]: Status: Acute (25) 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: Status: Acute Plan We will maintain the but BiPAP support because medication is limited by his renal insufficiency I will attempt a Lasix drip initially because of the bilateral pleural effusions but if no response will discontinue quickly because he does not appear to be total body fluid overloaded Digoxin for heart rate control and then supplement with Cardizem drip Will probably reach out to tertiary center in the morning bowel transfer to address the aortic valve possibly surgically Vancomycin for Staph bacteremia Quality Stroke Does the patient have a stroke diagnosis?: No VTE Prior VTE?: No VTE Risk Level:: Medical - moderate - high VTE Device Contraindication: Treatment Not Indicated VTE Drug Contraindication: Treatment Not Indicated
[2021-07-05] MEDS: dilTIAZem HCL 50 MG/10 ML VIAL IVPUSH (17:46)
[2021-07-05] MEDS: Digoxin 0.5 MG/2 ML AMPUL 0.25 MG IVPUSH (17:47)
[2021-07-05] MEDS: dilTIAZem HCL 125 MG in 0.9 % Sodium Chloride 100 ML IVCONT (17:47)
--- NOTE | 2021-07-05 18:57 | PHA.PROG ---
Admission Date/Time: June 08, 2021 23:02 Indication: Weight in k.2 kg Adjusted body weight in Kg: Jud body weight in Kg: Obesity Dosing Indication % IBW: Serum Creatinine - Last 168 Hours 06/28/21 06/29/21 06/29/21 19:59 07:13 14:36 Creatinine 1.64 H 1.52 H 1.65 H 06/30/21 06/30/21 07/01/21 05:25 16:48 05:28 Creatinine 2.01 H 2.17 H 2.21 H 07/01/21 07/02/21 07/02/21 16:50 05:25 15:45 Creatinine 2.29 H 2.13 H 2.16 H 07/03/21 07/04/21 07/05/21 05:10 16:59 05:38 Creatinine 2.13 H 2.19 H 2.56 H 07/05/21 08:22 Creatinine 2.64 H Estimated CrCl and GFR - Last 168 Hours 06/28/21 06/29/21 06/29/21 19:59 07:13 14:36 Estim Creat Clear Calc 51.0 55.9 51.5 Estimated GFR 41 45 41 06/30/21 06/30/21 07/01/21 05:25 16:48 05:28 Estim Creat Clear Calc 42.2 39.0 38.7 Estimated GFR 33 30 29 07/01/21 07/02/21 07/02/21 16:50 05:25 15:45 Estim Creat Clear Calc 37.3 39.7 39.1 Estimated GFR 28 30 30 07/03/21 07/04/21 07/05/21 05:10 16:59 05:38 Estim Creat Clear Calc 40.0 38.4 32.9 Estimated GFR 30 29 25 07/05/21 08:22 Estim Creat Clear Calc 31.9 Estimated GFR 24 Vancomycin Loading Dose: Current Vancomycin Dosing Regimen: Vancomycin Monitoring using AUC goal of 400 - 600 range with trough as surrogate marker: Date and Time for next Vancomycin Level to be drawn: Vancomycin Trough 14.8 mcg/mL (10.0-20.0) 06/12/21 15:01 Pharmacist Comments on Vancomycin Plan: 1500 mg load followed by 750 mg q24h, 750 mg dose started 12 hours after 1500 mg dose to reach auc quicker Vancomycin dosing will take advantage of [employer] as a clinical decision support tool that uses Bayesian modeling to calculate individual patient's pharmacokinetic parameters and forecast the patient's drug concentration time course with the target goal AUC 24 range of 400 - 600 mg/L/hr.
[2021-07-05] MEDS: vancomycin HCL 1,500 MG in 0.9 % Sodium Chloride 500 ML 333.33 MG IV (19:38)
[2021-07-05 20:39] LABS: Glucose, Whole Blood 230 mg/dL (60-115)
[2021-07-05] MEDS: Digoxin 0.25 MG TABLET PO (21:26)
[2021-07-05] MEDS: Apixaban 2.5 MG TABLET PO (21:27)
[2021-07-05] MEDS: Metoprolol Tartrate 25 MG TABLET PO (21:27)
[2021-07-05 21:51] LABS: Anion Gap 20 (12-20); Blood Urea Nitrogen 98 mg/dL (9-16); Calcium 7.8 mg/dL (8.4-10.2); Carbon Dioxide 28 mmol/L (22-29); Chloride 102 mmol/L (96-108); Creatinine Clr Calc Pharmacy 31.4; Estimated Glomerular Filt Rate 23; Glucose Random 287 mg/dL (60-115); Potassium 4.3 mmol/L (3.3-5.1); Sodium 146 mmol/L (135-145)
[2021-07-05 22:07] LABS: Troponin-I High Sensitivity 213.2 ng/L (<3.5-35.0)
[2021-07-06] VITALS (18 sets, daily range): BP systolic 119–143; BP diastolic 44–63; PULSE 18–112; RESP 14–106; TEMP 36.3–36.8; O2SAT 87–99; BMI 35.6
[2021-07-06 05:33] LABS: VBG Base Excess 2.1 mmol/L; VBG HCO3 27 mmol/L (22-26); VBG pCO2 45 mmHg; VBG pH 7.38 (7.32-7.43); VBG pO2 46 mmHg
[2021-07-06 05:34] LABS: Venous Blood Gas Refer to POC result
[2021-07-06 05:54] LABS: Hematocrit 28.6 % (42.0-52.0); Hemoglobin 8.9 g/dl (14.0-18.0); Imm Gran Abs Auto 0.31 X10*3/uL (0.00-0.03); Imm Gran Pct Auto 1.5 % (0.0-0.4); Lymphocytes Absolute Auto 0.5 X10*3/uL (1.2-4.9); Lymphocytes Percent Auto 2.7 % (20-40); MANUAL DIFF FLAG SCAN; Mean Corpuscular HGB Conc 31.1 g/dl (31.0-36.0); Mean Corpuscular Hemoglobin 29.4 pg (27.0-33.0); Mean Corpuscular Volume 94.4 fL (80.0-98.0); Mean Platelet Volume 12.5 fL (9.4-12.4); Monocytes Absolute Auto 0.6 X10*3/uL (0.1-1.2); NRBC Pct Auto 0.2 /100WBC (0.0-0.2); Neutrophils Absolute Auto 18.7 x10*3/uL (2.0-8.3); Neutrophils Percent Auto 92.8 % (45-73); Platelet Count 148 X10*3/uL (160-400); Red Blood Count 3.03 X10*6/uL (4.60-5.80); Red Cell Distribution Width 18.9 % (11.0-16.0); SCAN SMEAR FLAG 1; White Blood Count 20.2 X10*3/uL (4.8-10.8)
[2021-07-06 06:14] LABS: B Type Natriuretic Peptide 2439 pg/mL (<100)
[2021-07-06] MEDS: Digoxin 0.25 MG TABLET PO (06:17)
[2021-07-06] MEDS: methylPREDNISolone Sod Succ 125 MG/2 ML VIAL 60 MG IVPUSH (06:18)
[2021-07-06 06:25] LABS: Alanine Aminotransferase 6 U/L (0-40); Albumin Level 2.9 g/dL (3.5-5.0); Alkaline Phosphatase 68 U/L (39-117); Anion Gap 21 (12-20); Aspartate Amino Transferase 15 U/L (5-37); Bilirubin Direct 0.5 mg/dL (0.0-0.5); Bilirubin Total 0.8 mg/dL (0.0-1.0); Blood Urea Nitrogen 108 mg/dL (9-16); Calcium 7.7 mg/dL (8.4-10.2); Carbon Dioxide 28 mmol/L (22-29); Chloride 99 mmol/L (96-108); Creatinine Clr Calc Pharmacy 30.8; Estimated Glomerular Filt Rate 23; Glucose Random 342 mg/dL (60-115); Magnesium 2.3 mg/dL (1.6-2.6); Phosphorus 6.6 mg/dL (2.7-4.5); Potassium 4.2 mmol/L (3.3-5.1); Sodium 144 mmol/L (135-145); Total Protein 5.6 g/dL (6.5-8.0)
[2021-07-06 06:43] LABS: SLIDE REVIEW VERIFIED
[2021-07-06] MEDS: Furosemide 200 MG in 0.9 % Sodium Chloride 80 ML IVCONT (06:55)
[2021-07-06 07:32] LABS: Glucose, Whole Blood 329 mg/dL (60-115)
[2021-07-06] MEDS: vancomycin HCL 750 MG in 0.9 % Sodium Chloride 250 ML 265 MG IV (07:45)
[2021-07-06] MEDS: methylPREDNISolone Sod Succ 125 MG/2 ML VIAL 50 MG IVPUSH (07:45)
[2021-07-06] MEDS: Insulin Lispro 100 UNIT/ML 3 ML VIAL SUBCUT ×3 (07:45→16:09)
[2021-07-06] MEDS: 0.9 % Sodium Chloride Flush 3 ML SYRINGE IVFLUSH ×2 (07:45→14:17)
[2021-07-06] MEDS: Apixaban 2.5 MG TABLET PO (07:57)
[2021-07-06] MEDS: Metoprolol Tartrate 25 MG TABLET PO (07:57)
--- NOTE | 2021-07-06 08:17 | PHA.PROG ---
Admission Date/Time: June 08, 2021 23:02 Indication: Bacteremia Weight in k.2 kg Adjusted body weight in Kg: Frederick body weight in Kg: Obesity Dosing Indication % IBW: Serum Creatinine - Last 168 Hours 06/29/21 06/30/21 06/30/21 14:36 05:25 16:48 Creatinine 1.65 H 2.01 H 2.17 H 07/01/21 07/01/21 07/02/21 05:28 16:50 05:25 Creatinine 2.21 H 2.29 H 2.13 H 07/02/21 07/03/21 07/04/21 15:45 05:10 16:59 Creatinine 2.16 H 2.13 H 2.19 H 07/05/21 07/05/21 07/05/21 05:38 08:22 21:15 Creatinine 2.56 H 2.64 H 2.68 H 07/06/21 05:20 Creatinine 2.73 H Estimated CrCl and GFR - Last 168 Hours 06/29/21 06/30/21 06/30/21 14:36 05:25 16:48 Estim Creat Clear Calc 51.5 42.2 39.0 Estimated GFR 41 33 30 07/01/21 07/01/21 07/02/21 05:28 16:50 05:25 Estim Creat Clear Calc 38.7 37.3 39.7 Estimated GFR 29 28 30 07/02/21 07/03/21 07/04/21 15:45 05:10 16:59 Estim Creat Clear Calc 39.1 40.0 38.4 Estimated GFR 30 30 29 07/05/21 07/05/21 07/05/21 05:38 08:22 21:15 Estim Creat Clear Calc 32.9 31.9 31.4 Estimated GFR 25 24 23 07/06/21 05:20 Estim Creat Clear Calc 30.8 Estimated GFR 23 Vancomycin Loading Dose: 1500 mg x1 Current Vancomycin Dosing Regimen: 750 mg q24h Vancomycin Monitoring using AUC goal of 400 - 600 range with trough as surrogate marker: Current regimen is estimating a AUC of 527 with a trough of 16.3. I utilized the obese model to predict the most accurate AUC. Date and Time for next Vancomycin Level to be drawn: 07/07 @ 0600 Vancomycin Trough 14.8 mcg/mL (10.0-20.0) 06/12/21 15:01 Pharmacist Comments on Vancomycin Plan: Will continue to monitor renal function. Vancomycin dosing will take advantage of [employer] as a clinical decision support tool that uses Bayesian modeling to calculate individual patient's pharmacokinetic parameters and forecast the patient's drug concentration time course with the target goal AUC 24 range of 400 - 600 mg/L/hr.
--- NOTE | 2021-07-06 08:30 | CA_ITS ---
Transthoracic Echocardiogram Patient (Last, First, Middle): Dyllan Slade E Gender: Male Date of : 1945 Age: 76 Procedure Date: 07/06/2021 Procedure Type: Transthoracic Echocardiogram Location: ICU Height: 182.88 cm Weight: 118.84 kg BSA: 2.39 m2 Heart Rate: bpm BP: 143 / 63 mmHg Preparing Box Tender: SHERIF Referring MD: Vita Blankenship MD Symptoms: increasing AI/vegetation Study Quality: Fair ECG Rhythm: Atrial Fibrillation Conclusions: - The left ventricular systolic function is normal. The visually estimated ejection fraction is between 60-65%. - Suspect aortic valve endocarditis with probably moderate to severe endocarditis. - Discussed with . Findings Left Ventricle Normal left ventricular cavity size. There is mildly increased left ventricular wall thickness. The left ventricular systolic function is normal. The visually estimated ejection fraction is between 60-65%. Aortic Valve There is moderate to severe aortic valve regurgitation. Non coronary cusp appears thickened, with echodensity measuring 1.2 x 1cm. Possible diastolic flow reversal in descending thoracic aorta, but images not clear. Great Vessels The aortic annulus, sinuses of valsalva, and asc aorta are normal in size. Pericardium/Pleural There is a trivial pericardial effusion. Prior Study Comparison Changes noted compared to prior study dated: 06/30/2021. Progression of aortic regurgitation. Measurements 2D Linear Measurements IVSd: 1.22 0.6-0.9/0.6-1.0 cm LVIDd: 5.53 3.9-5.3/4.2-5.9 cm LVIDd Index: 2.31 2.4-3.2/2.2-3.1 cm/m2 LVIDs: 3.66 2.0-3.6 cm LVPWd: 1.10 0.7-1.1 cm Ao Root: 4.10 2.1-3.5 cm LV Mass: 327.21 67-162/88-224 g LV Mass Index: 136.91 43-95/49-115 g/m2 LVOT Diam: 2.40 3.0+(-)1.3 cm Aortic Valve AoV Pk Jose [place]: 2.35 AoV Mn Jose [place]: 1.26 AoV VTI: 0.36 AoV Pk Grad: 22.00 Aov Mn Grad: 8.00 PA Cont.VTI: 3.18 AI Pk Jose Francisco: 3.49 AI [place]: 3.34 LVOT LVOT Pk Jose Francisco: 1.38 LVOT Mn Jose Francisco: 0.81 LVOT VTI: 0.26 LVOT Pk Grad: 8.00 LVOT Mn Grad: 3.00 LVOT Diam: 2.40 LVOT Area: 4.52 Great Vessels Aorta Ao Root-2D: 4.10 2.0-3.7 cm Ao Asc: 3.60 2.1-3.4 cm Updated in Other Vendor System with Status of Final Aakash Chan MD electronically signed on 07/06/2021 12:00:31 PM with status of Final
--- NOTE | 2021-07-06 11:16 | P.PNNP_ITS ---
Subjective Subjective Date of Service: 07/06/21 Principal diagnosis: CKD. CHF Interval history: Events noted. All recent data reviewed. Physical Exam Verdana 4l Vital Signs: Verdana 4d Verdana 4d Vital Signs: Verdana 4d Verdana 4Bd Last Vital Signs Verdana 4d Accounts Adjustable Clerk New 4d Accounts Adjustable Clerk New 4d Temp 98.2 F 07/06/21 10:14 Accounts Adjustable Clerk New 4d Pulse 94 07/06/21 11:00 Accounts Adjustable Clerk New 4d Resp 22 H 07/06/21 11:00 BP 137/53 L 07/06/21 11:00 Pulse Ox 95 07/06/21 11:00 Oxygen Flow Rate 50 07/06/21 10:00 BMI result Body Mass Index 35.6 Const: General: no acute distress Neck: Neck: Yes supple Resp: Auscultation: diminished lung sounds Cardio: Rate: regular rate GI: Palpation (GI): Soft to palpation Neuro: General: moves all extremities Objective Data Labs CBC & Chem 7: 07/06/21 05:20 07/06/21 05:20 Labs: Laboratory Results - last 24 hr 07/05/21 07/05/21 07/05/21 11:13 13:20 13:25 WBC RBC Hgb Hct MCV MCH MCHC RDW Plt Count MPV Immature Gran % (Auto) Neut % (Auto) Lymph % (Auto) Major % (Auto) Eos % (Auto) Baso % (Auto) Lymph # (Auto) Major # (Auto) Eos # (Auto) Baso # (Auto) Abs Immat Gran (auto) Absolute Neuts (auto) Absolute Nucleated RBC Nucleated RBC % (auto) Smear Tech's Comments ESR 23 H VBG pH 7.39 VBG pCO2 50 VBG pO2 48 VBG HCO3 30 H VBG O2 Saturation 76.0 VBG Base Excess 4.8 Sodium Potassium Chloride Carbon Dioxide Anion Gap BUN Creatinine Estim Creat Clear Calc Estimated GFR POC Glucose 299 H Random Glucose Calcium Phosphorus Magnesium Total Bilirubin Direct Bilirubin AST ALT Alkaline Phosphatase Troponin I High Sens B-Natriuretic Peptide Total Protein Albumin 07/05/21 07/05/21 07/05/21 16:20 20:30 21:15 WBC RBC Hgb Hct MCV MCH MCHC RDW Plt Count MPV Immature Gran % (Auto) Neut % (Auto) Lymph % (Auto) Major % (Auto) Eos % (Auto) Baso % (Auto) Lymph # (Auto) Major # (Auto) Eos # (Auto) Baso # (Auto) Abs Immat Gran (auto) Absolute Neuts (auto) Absolute Nucleated RBC Nucleated RBC % (auto) Smear Tech's Comments ESR VBG pH VBG pCO2 VBG pO2 VBG HCO3 VBG O2 Saturation VBG Base Excess Sodium 146 H Potassium 4.3 Chloride 102 Carbon Dioxide 28 Anion Gap 20 BUN 98 H Creatinine 2.68 H Estim Creat Clear Calc 31.4 Estimated GFR 23 POC Glucose 246 H 230 H Random Glucose 287 H Calcium 7.8 L Phosphorus Magnesium Total Bilirubin Direct Bilirubin AST ALT Alkaline Phosphatase Troponin I High Sens B-Natriuretic Peptide Total Protein Albumin 07/05/21 07/06/21 07/06/21 21:15 00:15 05:20 WBC 20.2 H RBC 3.03 L Hgb 8.9 L Hct 28.6 L MCV 94.4 MCH 29.4 MCHC 31.1 RDW 18.9 H Plt Count 148 L MPV 12.5 H Immature Gran % (Auto) 1.5 H Neut % (Auto) 92.8 H Lymph % (Auto) 2.7 L Major % (Auto) 3.0 Eos % (Auto) 0.0 Baso % (Auto) 0.0 Lymph # (Auto) 0.5 L Major # (Auto) 0.6 Eos # (Auto) 0.0 Baso # (Auto) 0.0 Abs Immat Gran (auto) 0.31 H Absolute Neuts (auto) 18.7 H Absolute Nucleated RBC 0.040 H Nucleated RBC % (auto) 0.2 Smear Tech's Comments VERIFIED ESR VBG pH VBG pCO2 VBG pO2 VBG HCO3 VBG O2 Saturation VBG Base Excess Sodium Potassium Chloride Carbon Dioxide Anion Gap BUN Creatinine Estim Creat Clear Calc Estimated GFR POC Glucose Random Glucose Calcium Phosphorus Magnesium Total Bilirubin Direct Bilirubin AST ALT Alkaline Phosphatase Troponin I High Sens 213.2 H* D 197.0 H* B-Natriuretic Peptide Total Protein Albumin 07/06/21 07/06/21 07/06/21 05:20 05:20 05:27 WBC RBC Hgb Hct MCV MCH MCHC RDW Plt Count MPV Immature Gran % (Auto) Neut % (Auto) Lymph % (Auto) Major % (Auto) Eos % (Auto) Baso % (Auto) Lymph # (Auto) Major # (Auto) Eos # (Auto) Baso # (Auto) Abs Immat Gran (auto) Absolute Neuts (auto) Absolute Nucleated RBC Nucleated RBC % (auto) Smear Tech's Comments ESR VBG pH 7.38 VBG pCO2 45 VBG pO2 46 VBG HCO3 27 H VBG O2 Saturation 72.0 VBG Base Excess 2.1 Sodium 144 Potassium 4.2 Chloride 99 Carbon Dioxide 28 Anion Gap 21 H BUN 108 H Creatinine 2.73 H Estim Creat Clear Calc 30.8 Estimated GFR 23 POC Glucose Random Glucose 342 H Calcium 7.7 L Phosphorus 6.6 H Magnesium 2.3 Total Bilirubin 0.8 Direct Bilirubin 0.5 AST 15 ALT 6 Alkaline Phosphatase 68 Troponin I High Sens B-Natriuretic Peptide 2439 H Total Protein 5.6 L Albumin 2.9 L 07/06/21 07:28 WBC RBC Hgb Hct MCV MCH MCHC RDW Plt Count MPV Immature Gran % (Auto) Neut % (Auto) Lymph % (Auto) Major % (Auto) Eos % (Auto) Baso % (Auto) Lymph # (Auto) Major # (Auto) Eos # (Auto) Baso # (Auto) Abs Immat Gran (auto) Absolute Neuts (auto) Absolute Nucleated RBC Nucleated RBC % (auto) Smear Tech's Comments ESR VBG pH VBG pCO2 VBG pO2 VBG HCO3 VBG O2 Saturation VBG Base Excess Sodium Potassium Chloride Carbon Dioxide Anion Gap BUN Creatinine Estim Creat Clear Calc Estimated GFR POC Glucose 329 H Random Glucose Calcium Phosphorus Magnesium Total Bilirubin Direct Bilirubin AST ALT Alkaline Phosphatase Troponin I High Sens B-Natriuretic Peptide Total Protein Albumin Microbiology Microbiology Results: Microbiology 06/29/21 15:20 Blood - Venous Blood Culture - Final No growth after 5 days. 06/29/21 15:20 Blood - Venous Blood Culture - Final No growth after 5 days. 06/30/21 02:16 Sputum - Suctioned Gram Stain - Final 06/30/21 02:16 Sputum - Suctioned Sputum Culture - Final 06/29/21 20:32 Urine Catheterized - Villa Catheter Urine Culture - Final No growth. 06/19/21 14:54 Blood - Venous Blood Culture - Final No growth after 5 days. 06/19/21 14:55 Blood - Venous Blood Culture - Final No growth after 5 days. 06/09/21 17:15 Blood - Venous Blood Culture - Final Staphylococcus aureus 06/09/21 17:10 Blood - Venous Blood Culture - Final Staphylococcus aureus 06/08/21 23:11 Blood - Venous Blood Culture - Final Staphylococcus aureus 06/08/21 23:11 Blood - Venous Blood Culture - Final Staphylococcus aureus Procedures Date of Service Date of Service: 07/06/21 Assessment & Plan Assessment and plan (1) Acute renal failure: Status: Acute Assessment and Plan: Acute Kidney Injury due to tubular injury Renal functions had been fairly stable Continue current supportive care No indication for renal replacement Labs AM; Shall closely follow up Time Spent With Patient Time: Total time spent is greater than 50% in coordination of care (as documented) at patient's floor/unit and/or counseling patient: Progress Note: Quality Stroke Does the patient have a stroke diagnosis?: No
[2021-07-06 11:19] LABS: Glucose, Whole Blood 304 mg/dL (60-115)
--- NOTE | 2021-07-06 12:02 | MHC.CLN ---
F/U PT TRANSFERRED TO ICU; CURRENTLY ON BIPAP AND CONFUSED NSG REPORTED PT ASKING FOR WATER AND FOOD FREQUENTLY DIET RX: 2200DM, 2 GRAM SODIUM, PUREE WITH NECTAR THICK LIQUIDS-APPROPRIATE PHARMACEUTICAL ASSISTANT TO EVAL FOR DIET CONSISTENCY PER NSG SKIN WITH STAGE II BILATERAL BUTTOCKS- GLUCERNA BID (474 KCALS, 20 G PROTEIN) TO IMPROVE NUTRITIONAL STATUS AND PROMOTE WOUND HEALING. MONITOR PO INTAKE CLOSELY.
--- NOTE | 2021-07-06 12:18 | P.PNCA_ITS ---
Subjective Subjective Date of Service: 07/06/21 Principal diagnosis: CKD. CHF Interval history: Still short of breath. Back in ICU. Review of Systems Review of Systems Yes all other systems are reviewed and are negative Constitutional: Reports fatigue, Reports lethargy, Reports malaise and Reports weakness Cardiovascular: Reports as per HPI, Reports no additional cardiovascular complaints, Denies acrocyanosis, Denies cool extremities, Denies painful fingertips, Denies chest pain, Denies chest pain at rest, Denies diaphoresis, Denies syncope, Denies irregular heart rhythm, Denies claudication, Reports leg edema, Denies lightheadedness, Denies palpitations and Reports dyspnea Respiratory: Reports dyspnea Denies syncope and Reports weakness Endocrine: Reports fatigue and Denies palpitations Physical Exam Vital Signs: Last Vital Signs Temp 98.2 F 07/06/21 10:14 Pulse 94 07/06/21 11:00 Resp 24 H 07/06/21 12:03 BP 137/53 L 07/06/21 11:00 Pulse Ox 95 07/06/21 11:00 Verdana 4 Oxygen Flow Verdana 4 50 Verdana 4 07/06/21 Rate Verdana 4 10:00 Verdana 4 Verdana 4 BMI result Verdana 4 Body Mass Index Verdana 4 35.6 Verdana 4 Verdana 4 Const General: ill appearing HENMT Other: Unremarkable Neck Neck: Yes normal visual inspection Chest Chest palpation & inspection: normal inspection of the chest Resp Other: diminished breath sounds; crackles, wheeze Cardio Palpation: normal PMI Heart sounds: S1 normal heart sound present, S2 normal heart sound present, no gallops, Murmur heart sound present and no rubs GI Palpation (GI): Soft to palpation Back/Spine/Pelvis Other: unremarkable Skin Lesions: other Neuro Cranial nerves: Yes Other cranial nerve findings present Extrem Other: edema+ General: Yes other Psych Mental Status: other Objective Labs and Meds Result diagrams: 07/06/21 05:20 07/06/21 05:20 Lab results: Laboratory Results - last 24 hr 07/05/21 07/05/21 07/05/21 13:20 13:25 16:20 WBC RBC Hgb Hct MCV MCH MCHC RDW Plt Count MPV Immature Gran % (Auto) Neut % (Auto) Lymph % (Auto) [place] % (Auto) Eos % (Auto) Baso % (Auto) Lymph # (Auto) [place] # (Auto) Eos # (Auto) Baso # (Auto) Abs Immat Gran (auto) Absolute Neuts (auto) Absolute Nucleated RBC Nucleated RBC % (auto) Smear Tech's Comments ESR 23 H VBG pH 7.39 VBG pCO2 50 VBG pO2 48 VBG HCO3 30 H VBG O2 Saturation 76.0 VBG Base Excess 4.8 Sodium Potassium Chloride Carbon Dioxide Anion Gap BUN Creatinine Estim Creat Clear Calc Estimated GFR POC Glucose 246 H Random Glucose Calcium Phosphorus Magnesium Total Bilirubin Direct Bilirubin AST ALT Alkaline Phosphatase Troponin I High Sens B-Natriuretic Peptide Total Protein Albumin 07/05/21 07/05/21 07/05/21 20:30 21:15 21:15 WBC RBC Hgb Hct MCV MCH MCHC RDW Plt Count MPV Immature Gran % (Auto) Neut % (Auto) Lymph % (Auto) [place] % (Auto) Eos % (Auto) Baso % (Auto) Lymph # (Auto) [place] # (Auto) Eos # (Auto) Baso # (Auto) Abs Immat Gran (auto) Absolute Neuts (auto) Absolute Nucleated RBC Nucleated RBC % (auto) Smear Tech's Comments ESR VBG pH VBG pCO2 VBG pO2 VBG HCO3 VBG O2 Saturation VBG Base Excess Sodium 146 H Potassium 4.3 Chloride 102 Carbon Dioxide 28 Anion Gap 20 BUN 98 H Creatinine 2.68 H Estim Creat Clear Calc 31.4 Estimated GFR 23 POC Glucose 230 H Random Glucose 287 H Calcium 7.8 L Phosphorus Magnesium Total Bilirubin Direct Bilirubin AST ALT Alkaline Phosphatase Troponin I High Sens 213.2 H* D B-Natriuretic Peptide Total Protein Albumin 07/06/21 07/06/21 07/06/21 00:15 05:20 05:20 WBC 20.2 H RBC 3.03 L Hgb 8.9 L Hct 28.6 L MCV 94.4 MCH 29.4 MCHC 31.1 RDW 18.9 H Plt Count 148 L MPV 12.5 H Immature Gran % (Auto) 1.5 H Neut % (Auto) 92.8 H Lymph % (Auto) 2.7 L [place] % (Auto) 3.0 Eos % (Auto) 0.0 Baso % (Auto) 0.0 Lymph # (Auto) 0.5 L [place] # (Auto) 0.6 Eos # (Auto) 0.0 Baso # (Auto) 0.0 Abs Immat Gran (auto) 0.31 H Absolute Neuts (auto) 18.7 H Absolute Nucleated RBC 0.040 H Nucleated RBC % (auto) 0.2 Smear Tech's Comments VERIFIED ESR VBG pH VBG pCO2 VBG pO2 VBG HCO3 VBG O2 Saturation VBG Base Excess Sodium 144 Potassium 4.2 Chloride 99 Carbon Dioxide 28 Anion Gap 21 H BUN 108 H Creatinine 2.73 H Estim Creat Clear Calc 30.8 Estimated GFR 23 POC Glucose Random Glucose 342 H Calcium 7.7 L Phosphorus 6.6 H Magnesium 2.3 Total Bilirubin 0.8 Direct Bilirubin 0.5 AST 15 ALT 6 Alkaline Phosphatase 68 Troponin I High Sens 197.0 H* B-Natriuretic Peptide Total Protein 5.6 L Albumin 2.9 L 07/06/21 07/06/21 07/06/21 05:20 05:27 07:28 WBC RBC Hgb Hct MCV MCH MCHC RDW Plt Count MPV Immature Gran % (Auto) Neut % (Auto) Lymph % (Auto) [place] % (Auto) Eos % (Auto) Baso % (Auto) Lymph # (Auto) [place] # (Auto) Eos # (Auto) Baso # (Auto) Abs Immat Gran (auto) Absolute Neuts (auto) Absolute Nucleated RBC Nucleated RBC % (auto) Smear Tech's Comments ESR VBG pH 7.38 VBG pCO2 45 VBG pO2 46 VBG HCO3 27 H VBG O2 Saturation 72.0 VBG Base Excess 2.1 Sodium Potassium Chloride Carbon Dioxide Anion Gap BUN Creatinine Estim Creat Clear Calc Estimated GFR POC Glucose 329 H Random Glucose Calcium Phosphorus Magnesium Total Bilirubin Direct Bilirubin AST ALT Alkaline Phosphatase Troponin I High Sens B-Natriuretic Peptide 2439 H Total Protein Albumin 07/06/21 11:15 WBC RBC Hgb Hct MCV MCH MCHC RDW Plt Count MPV Immature Gran % (Auto) Neut % (Auto) Lymph % (Auto) [place] % (Auto) Eos % (Auto) Baso % (Auto) Lymph # (Auto) [place] # (Auto) Eos # (Auto) Baso # (Auto) Abs Immat Gran (auto) Absolute Neuts (auto) Absolute Nucleated RBC Nucleated RBC % (auto) Smear Tech's Comments ESR VBG pH VBG pCO2 VBG pO2 VBG HCO3 VBG O2 Saturation VBG Base Excess Sodium Potassium Chloride Carbon Dioxide Anion Gap BUN Creatinine Estim Creat Clear Calc Estimated GFR POC Glucose 304 H Random Glucose Calcium Phosphorus Magnesium Total Bilirubin Direct Bilirubin AST ALT Alkaline Phosphatase Troponin I High Sens B-Natriuretic Peptide Total Protein Albumin Progress Note: A&P Assessment and plan (1) Acute respiratory distress syndrome (ARDS) due to COVID-19 virus: Status: Acute (2) Acute respiratory failure: Status: Acute (3) Atrial fibrillation with rapid ventricular response: Status: Acute (4) Non-rheumatic aortic regurgitation: Status: Acute Plan Echocardiogram performed today and shows worsening aortic regurgitation. Probably moderate to severe. Thickening in the non coronary cusp possibly from vegetation. Blood cultures initially positive for Staphylococcus aureus but recent cultures are negative. He also likely has ARDS related to COVID itself. Overall multifactorial etiology for his respiratory distress and continued decline. Discussed with cut filer. Recommend transfer to [facility] for further care including possibly CHRIS but he will need to be intubated for that. Even if aortic valve replacement is warranted, he is a poor candidate and at extremely high risk but may need a formal surgical evaluation anyway. With rega rd to atrial fibrillation, possibly resume amiodarone as I doubt if there is truly any pneumonitis from this. Anticoagulation. Otherwise, will also likely need a right heart catheterization to assess for cardiac versus pulmonary etiologies of infiltrates. At the time of this dictation, we still do not have a CHRIS probe in this hospital and still awaited. Discussed with . Fall Risk Details Current Medications: Current Medications Apixaban (Apixaban 2.5 Mg Tablet) 2.5 mg PO BID [facility] Last Admin: 07/06/21 07:57 Dose: 2.5 mg Documented by: Finasteride (Finasteride 5 Mg Tablet) 5 mg PO DAILY [facility] Last Admin: 06/30/21 09:05 Dose: 5 mg Documented by: Diltiazem HCl 125 mg/ Sodium (Chloride) 125 mls @ 0 mls/hr IVCONT .Q0M [facility]; Protocol Last Admin: 07/05/21 17:47 Dose: 5 mg/hr, 5 mls/hr Documented by: Vancomycin HCl 750 mg/ Sodium (Chloride) 265 mls @ 265 mls/hr IV Q24H [facility] Last Infusion: 07/06/21 08:57 Dose: Infused Documented by: Insulin Human Lispro (Insulin Lispro 100 Unit/Ml 3 Ml Vial) 0 unit SUBCUT QIDACHS [facility]; Protocol Last Admin: 07/06/21 11:24 Dose: 8 unit Documented by: Levalbuterol HCl (Levalbuterol Hcl 1.25 Mg/0.5 Ml Vial.Neb) 1.25 mg INHALE QID [facility] Last Admin: 07/06/21 12:07 Dose: 1.25 mg Documented by: Methylprednisolone Sodium Succinate (Methylprednisolone Sod Succ 125 Mg/2 Ml Vial) 50 mg IVPUSH Q8H [facility] Last Admin: 07/06/21 07:45 Dose: 50 mg Documented by: Metoprolol Tartrate (Metoprolol Tartrate 25 Mg Tablet) 25 mg PO BID [facility]; Protocol Last Admin: 07/06/21 07:57 Dose: 25 mg Documented by: Omeprazole (Omeprazole 20 Mg/10 Ml Susp.Recon) 40 mg PO BID@0630,1630 [facility] Last Admin: 07/06/21 06:17 Dose: 40 mg Documented by: Pharmacy Consult (Consult Rx Vancomycin Dosing) 1 each MISCELLANE DAILY PRN PRN Reason: Consult order Sodium Chloride (0.9 % Sodium Chloride Flush 3 Ml Syringe) 3 ml IVFLUSH QSHIFT [facility] Last Admin: 07/06/21 07:45 Dose: 3 ml Documented by: Time Spent With Patient Time: Total time spent is greater than 50% in coordination of care (as documented) at patient's floor/unit and/or counseling patient: Time with patient: 15 - 24 minutes Progress Note: Quality Stroke Does the patient have a stroke diagnosis?: No Procedures Date of Service Date of Service: 07/06/21
--- NOTE | 2021-07-06 13:30 | P.DS_ITS ---
DS: Providers Provider Date of Service: 07/06/21 Date of admission: 06/08/21 23:02 Date of discharge: 07/06/21 Primary care physician: Fransico Valdez MD Admitting clinician: Napoleon Guillaume Attending physician on admission: Napoleon Guillaume Consults: 06/08/21 22:59 Consult to Infectious Diseases Routine Consulting Provider: Shivani Priest Reason for consultation: covid PNA 06/08/21 23:05 Consult to Cardiology Routine Consulting Provider: Candelario Rodriguez Reason for consultation: CHF; Afib 06/10/21 12:31 Consult to Gastroenterology Routine Consulting Provider: Marcos Mae Reason for consultation: black tarry stools Has provider been notified: No 06/11/21 11:12 Consult to General Surgery Routine Consulting Provider: Itz Mendoza Reason for consultation: duodenal ulcer Has provider been notified: Yes 06/20/21 14:26 Consult to Infectious Diseases Routine Consulting Provider: Shivani Priest Reason for consultation: MSSA bacteremia, covid 06/22/21 12:29 Consult to Nephrology Routine Consulting Provider: Chan Mike Reason for consultation: phylicia Has provider been notified: No 06/25/21 09:30 Consult to Cardiology Routine Consulting Provider: Norberto Zee Reason for consultation: AF/RVR 06/26/21 08:52 Consult to Cardiology Routine Consulting Provider: Candelario Rodriguez Reason for consultation: afib rvr Has provider been notified: No 07/04/21 11:33 Consult to Gastroenterology Routine Consulting Provider: Marcos Mae Reason for consultation: ok to resume eliquis or need endoscopy Has provider been notified: No 07/04/21 11:34 Consult to Pulmonology Routine Consulting Provider: Robinson Marshall Reason for consultation: on high flow Has provider been notified: No Attending physician on discharge: Vita Blankenship Discharging clinician: Vita Blankenship DS: Transfer Hospital Acceptance Reason for Transfer: Acute 4+ aortic insufficiency Name of Facility: [facility] Accepting Provider: Dr. Vicente DS: Diagnosis Discharge Diagnosis (1) Acute respiratory failure: Status: Acute (2) Persistent atrial fibrillation: Status: Acute (3) Acute heart failure: Status: Acute (4) Heart failure with preserved ejection fraction: Status: Acute (5) Elevated brain natriuretic peptide (BNP) level: Status: Acute (6) Diabetes: Status: Acute (7) Acute respiratory distress syndrome (ARDS) due to COVID-19 virus: Status: Acute (8) Morbid obesity: Status: Acute (9) Thrombocytopenia associated with severe acute respiratory syndrome coronavirus 2 (SARS-CoV-2) infection: Status: Acute (10) Acute hypoxemic respiratory failure: Status: Acute (11) Acute non-ST elevation myocardial infarction (NSTEMI): Status: Acute (12) GI bleed: Status: Acute (13) Acute renal failure: Status: Acute (14) BPH w urinary obs/LUTS: Status: Acute (15) Nocturia associated with benign prostatic hyperplasia: Status: Acute (16) Weakness: Status: Acute DS: Summary Hospital Course Hospital Course: Presented with acute dyspnea and weakness progressing over several weeks prior and was noted to have an acute upper GI bleed with anemia and was intubated brought to the OR for emergent upper endoscopy with cautery and clipping of a visible arterial vessel in the ulcer in the duodenum remained intubated because of progressive hypoxic respiratory failure and given the CT scan appearance was felt to be contributed to by COVID-19 pneumonitis and ARDS and after 3 weeks was extubated and part of the respiratory failure was the diastolic CHF exacerbated by iatrogenic fluid overload as well as paroxysmal atrial fibrillation with rapid ventricular response and progressive aortic insufficiency 4/4 blood cultures from admission were positive for Staph aureus which is methicillin sensitive and he has been treated since the beginning of admission consistently and because of the development of rash we could not differentiate between cephalosporin or amiodarone all this was stopped and rash worsened on daptomycin so that too was stopped and he is now on vancomycin in his 4th week of treatment and given the appearance of the non coronary cusp of the aortic valve 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 and has subsequently developed 4+ severe aortic insufficiency with hyperdynamic left ventricle in the face of an acute on chronic stage III level of renal failure but remains without distress awake and alert on high-flow nasal cannula with a compensated blood gas stable creatinine of about [address] scan of the chest we feel but there is possible amiodarone lung toxicity that is been withheld he remains on a Cardizem drip along with maintenance digoxin for heart rate control Initial source of the Staph bacteremia looked to be some lesions on his skin because he has a habit of picking at his skin so he was excoriated but without visible cellulitis Status at Discharge Cognitive/behavioral status at discharge: Good cognitive function Functional status at discharge: bed bound Overall status at discharge: patient is progressing back to baseline Time Spent with Patient Time attestation: Total time spent providing and/or coordinating discharge services: Discharge coordination time: Greater than 30 minutes Quality: Stroke Does the patient have a stroke diagnosis?: No Physical Exam Verdana 4l Vital Signs: Verdana 4d Verdana 4d Vital Signs: Verdana 4d Verdana 4Bd Last Vital Signs Verdana 4d Isolation Washer New 4d Isolation Washer New 4d Temp 97.3 F 07/06/21 12:00 Isolation Washer New 4d Pulse 78 07/06/21 13:00 Isolation Washer New 4d Resp 20 07/06/21 13:00 BP 123/56 L 07/06/21 13:00 Pulse Ox 95 07/06/21 13:00 Oxygen Flow Rate 50 07/06/21 10:00 BMI result Body Mass Index 35.6 Atrial flutter with heart rate 100 afebrile oxygen saturation 95% blood pressure 123/56 Awake and nonfocal neurologically Bedside echo with hyperdynamic LV ejection fraction greater than 70% and intact right ventricle and probable non coronary cusp of aortic valve with vegetation and 4+ aortic insufficiency Lungs with no adventitious sounds Abdomen benign no organomegaly No significant peripheral edema and no acrocyanosis DS: Data Data Completed and Pending Labs on day of discharge: Laboratory Results - last 24 hr 07/05/21 07/05/21 07/05/21 13:20 13:25 16:20 WBC RBC Hgb Hct MCV MCH MCHC RDW Plt Count MPV Immature Gran % (Auto) Neut % (Auto) Lymph % (Auto) [place] % (Auto) Eos % (Auto) Baso % (Auto) Lymph # (Auto) [place] # (Auto) Eos # (Auto) Baso # (Auto) Abs Immat Gran (auto) Absolute Neuts (auto) Absolute Nucleated RBC Nucleated RBC % (auto) Smear Tech's Comments ESR 23 H VBG pH 7.39 VBG pCO2 50 VBG pO2 48 VBG HCO3 30 H VBG O2 Saturation 76.0 VBG Base Excess 4.8 Sodium Potassium Chloride Carbon Dioxide Anion Gap BUN Creatinine Estim Creat Clear Calc Estimated GFR POC Glucose 246 H Random Glucose Calcium Phosphorus Magnesium Total Bilirubin Direct Bilirubin AST ALT Alkaline Phosphatase Troponin I High Sens B-Natriuretic Peptide Total Protein Albumin 07/05/21 07/05/21 07/05/21 20:30 21:15 21:15 WBC RBC Hgb Hct MCV MCH MCHC RDW Plt Count MPV Immature Gran % (Auto) Neut % (Auto) Lymph % (Auto) [place] % (Auto) Eos % (Auto) Baso % (Auto) Lymph # (Auto) [place] # (Auto) Eos # (Auto) Baso # (Auto) Abs Immat Gran (auto) Absolute Neuts (auto) Absolute Nucleated RBC Nucleated RBC % (auto) Smear Tech's Comments ESR VBG pH VBG pCO2 VBG pO2 VBG HCO3 VBG O2 Saturation VBG Base Excess Sodium 146 H Potassium 4.3 Chloride 102 Carbon Dioxide 28 Anion Gap 20 BUN 98 H Creatinine 2.68 H Estim Creat Clear Calc 31.4 Estimated GFR 23 POC Glucose 230 H Random Glucose 287 H Calcium 7.8 L Phosphorus Magnesium Total Bilirubin Direct Bilirubin AST ALT Alkaline Phosphatase Troponin I High Sens 213.2 H* D B-Natriuretic Peptide Total Protein Albumin 07/06/21 07/06/21 07/06/21 00:15 05:20 05:20 WBC 20.2 H RBC 3.03 L Hgb 8.9 L Hct 28.6 L MCV 94.4 MCH 29.4 MCHC 31.1 RDW 18.9 H Plt Count 148 L MPV 12.5 H Immature Gran % (Auto) 1.5 H Neut % (Auto) 92.8 H Lymph % (Auto) 2.7 L [place] % (Auto) 3.0 Eos % (Auto) 0.0 Baso % (Auto) 0.0 Lymph # (Auto) 0.5 L [place] # (Auto) 0.6 Eos # (Auto) 0.0 Baso # (Auto) 0.0 Abs Immat Gran (auto) 0.31 H Absolute Neuts (auto) 18.7 H Absolute Nucleated RBC 0.040 H Nucleated RBC % (auto) 0.2 Smear Tech's Comments VERIFIED ESR VBG pH VBG pCO2 VBG pO2 VBG HCO3 VBG O2 Saturation VBG Base Excess Sodium 144 Potassium 4.2 Chloride 99 Carbon Dioxide 28 Anion Gap 21 H BUN 108 H Creatinine 2.73 H Estim Creat Clear Calc 30.8 Estimated GFR 23 POC Glucose Random Glucose 342 H Calcium 7.7 L Phosphorus 6.6 H Magnesium 2.3 Total Bilirubin 0.8 Direct Bilirubin 0.5 AST 15 ALT 6 Alkaline Phosphatase 68 Troponin I High Sens 197.0 H* B-Natriuretic Peptide Total Protein 5.6 L Albumin 2.9 L 07/06/21 07/06/21 07/06/21 05:20 05:27 07:28 WBC RBC Hgb Hct MCV MCH MCHC RDW Plt Count MPV Immature Gran % (Auto) Neut % (Auto) Lymph % (Auto) [place] % (Auto) Eos % (Auto) Baso % (Auto) Lymph # (Auto) [place] # (Auto) Eos # (Auto) Baso # (Auto) Abs Immat Gran (auto) Absolute Neuts (auto) Absolute Nucleated RBC Nucleated RBC % (auto) Smear Tech's Comments ESR VBG pH 7.38 VBG pCO2 45 VBG pO2 46 VBG HCO3 27 H VBG O2 Saturation 72.0 VBG Base Excess 2.1 Sodium Potassium Chloride Carbon Dioxide Anion Gap BUN Creatinine Estim Creat Clear Calc Estimated GFR POC Glucose 329 H Random Glucose Calcium Phosphorus Magnesium Total Bilirubin Direct Bilirubin AST ALT Alkaline Phosphatase Troponin I High Sens B-Natriuretic Peptide 2439 H Total Protein Albumin 07/06/21 11:15 WBC RBC Hgb Hct MCV MCH MCHC RDW Plt Count MPV Immature Gran % (Auto) Neut % (Auto) Lymph % (Auto) [place] % (Auto) Eos % (Auto) Baso % (Auto) Lymph # (Auto) [place] # (Auto) Eos # (Auto) Baso # (Auto) Abs Immat Gran (auto) Absolute Neuts (auto) Absolute Nucleated RBC Nucleated RBC % (auto) Smear Tech's Comments ESR VBG pH VBG pCO2 VBG pO2 VBG HCO3 VBG O2 Saturation VBG Base Excess Sodium Potassium Chloride Carbon Dioxide Anion Gap BUN Creatinine Estim Creat Clear Calc Estimated GFR POC Glucose 304 H Random Glucose Calcium Phosphorus Magnesium Total Bilirubin Direct Bilirubin AST ALT Alkaline Phosphatase Troponin I High Sens B-Natriuretic Peptide Total Protein Albumin Discharge Plan Discharge Anticipated Discharge Date/Time: 07/06/21 16:40 Patient Disposition: Xfer Acute Care Hospital Discharge Diagnosis: Acute hypoxemic respiratory failure COVID-19 pneumonitis and ARDS Acute CHF Acute and severe aortic insufficiency Staph endocarditis of aortic valve Paroxysmal atrial fibrillation Acute on chronic stage III renal failure Possible amiodarone lung toxicity Upper GI bleed with secondary anemia due to duodenal ulcer Referrals: [facility] [Other] - 1 Week Fransico Valdez MD [Primary Care Provider] - 1 Week Discharge Medications: Continued aspirin 81 mg Tablet,Delayed Release (Dr/Ec) 81 mg PO DAILY 0RF triamcinolone acetonide 0.1 % cream 1 applic topical BID-TID 0RF finasteride 5 mg tablet 5 mg PO DAILY 90 Days Qty: 90 1RF Discontinued tamsulosin 0.4 mg capsule 0.4 mg PO BEDTIME 90 Days Qty: 90 3RF atorvastatin 10 mg Tablet 10 mg PO BEDTIME 0RF metoprolol tartrate 100 mg Tablet 100 mg PO BID 0RF glipizide 10 mg Tablet 10 mg PO BID 0RF amlodipine 10 mg Tablet 10 mg PO DAILY 0RF lisinopril 40 mg Tablet 40 mg PO DAILY 0RF pioglitazone 30 mg tablet 1 tab PO DAILY 0RF Discharge Orders: Discharge Order (Routine); Ordered 07/06/21 Ordered By: Vita Blankenship Diet: other Activity on Discharge: Rest with bed elevated Stand Alone Forms: Patient Portal Discharge page Care Plan Goals: Transfer to ICU bed at [facility] for cardiothoracic evaluation for possible a aortic valve replacement Health Concerns: To be followed by the Renal group who know him for his renal insufficiency Plan of Treatment: Will remain on at least noninvasive respiratory support related to CHF Assessment: He has had good recovery of cognitive function and he remains comfortable E compensated for his severe aortic insufficiency and has good heart rate control in atrial fibrillation but I feel that a medicine other than amiodarone should be chosen
--- NOTE | 2021-07-06 14:02 | MHC.CM.PN ---
Pt will be transferred to [facility] for cardiac intervention. has notified pt's spouse.
[2021-07-06] MEDS: dilTIAZem HCL 125 MG in 0.9 % Sodium Chloride 100 ML 10 MG IVCONT (14:16)
[2021-07-06 15:15] LABS: VBG HCO3 31 mmol/L (22-26); VBG pCO2 51 mmHg; VBG pH 7.39 (7.32-7.43); VBG pO2 46 mmHg
[2021-07-06 15:56] LABS: Glucose, Whole Blood 306 mg/dL (60-115)
[2021-07-06] MEDS: methylPREDNISolone Sod Succ 125 MG/2 ML VIAL 40 MG IVPUSH (16:10)
--- NOTE | 2021-07-06 16:15 | MHC.SLORD ---
Speech Language Pathology Order Status: Attempted to see Pt this a.m. Pt transferred to ICU due to cardiac issues. Pt currently being d/c'd to [facility].
--- NOTE | 2021-07-06 16:27 | PC.NURSE ---
PATIENTS [place] BEDSIDE TO VISIT PRIOR TO TRANSPORT TO [facility]. TOOK ALL OF PATIENTS BELONGINGS HOME - MINUS UPPER DENTURES WHICH ARE IN PATIENTS MOUTH. TLC DRESSING AND CALAVES CHANGED. TOTAL BATH AND DRESSING TO BUTTOCK CHANGED. RN TO RN REPORT GIVEN TO [facility] NOAH REYES ON MASS MUTUAL 3 RM 22. PATIENT SENT ON DILTIAZEM GTT AT 10ML/HR. RN TO TRANSPORT TEAM REPORT GIVEN. [facility] AND PATIENTS CALLED AND NOTIFIED OF DEPARTURE FROM FACILITY.
== END 2021-07-06 16:44 | disposition short-term general hospital (02) | DRG 207 ==
LOC: HO.ED 21:39 → HO.EDOVER 23:11 → HO.IMC 06-10 12:55 → HO.ICU 06-11 01:57 → HO.IMC 06-21 14:23 → HO.ICU 06-29 12:12 → HO.S3 07-03 20:56 → HO.ICU 07-05 17:14
PROVIDERS: Anesthesiology; Emergency Medicine Emergency Medical Services; Family Medicine; Hospitalist; Internal Medicine; Internal Medicine Gastroenterology; Internal Medicine Nephrology; Internal Medicine Pulmonary Disease; Physician Assistant; Physician Assistant Medical; Radiology Diagnostic Radiology; Admitting Provider Hospitalist; Emergency Provider Internal Medicine; PCP Internal Medicine Medical Oncology; Visit Provider Internal Medicine Cardiovascular Disease
PROC: 3E0G8GC Introduction of Other Therapeutic Substance into Upper GI, Via Natural or Artificial Opening Endoscopic (ICD-10-PCS; principal; 2021-06-11 08:00)
DX: U07.1 COVID-19 (principal); J12.82 Pneumonia due to coronavirus disease 2019; R57.8 Other shock; K26.4 Chronic or unspecified duodenal ulcer with hemorrhage; J80 Acute respiratory distress syndrome; N17.0 Acute kidney failure with tubular necrosis; I50.33 Acute on chronic diastolic (congestive) heart failure; R78.81 Bacteremia; I24.9 Acute ischemic heart disease, unspecified; I13.0 Hypertensive heart and chronic kidney disease with heart failure and stage 1 through stage 4 chronic kidney disease, or unspecified chronic kidney disease; I95.9 Hypotension, unspecified; E83.41 Hypermagnesemia; B95.61 Methicillin susceptible Staphylococcus aureus infection as the cause of diseases classified elsewhere; N40.0 Benign prostatic hyperplasia without lower urinary tract symptoms; K29.40 Chronic atrophic gastritis without bleeding; D69.6 Thrombocytopenia, unspecified; N40.1 Benign prostatic hyperplasia with lower urinary tract symptoms; N28.89 Other specified disorders of kidney and ureter; E78.5 Hyperlipidemia, unspecified; L89.152 Pressure ulcer of sacral region, stage 2; I27.29 Other secondary pulmonary hypertension; R35.1 Nocturia; D50.0 Iron deficiency anemia secondary to blood loss (chronic); I35.1 Nonrheumatic aortic (valve) insufficiency; L89.322 Pressure ulcer of left buttock, stage 2; E11.22 Type 2 diabetes mellitus with diabetic chronic kidney disease; I35.8 Other nonrheumatic aortic valve disorders; N18.30 Chronic kidney disease, stage 3 unspecified; L89.312 Pressure ulcer of right buttock, stage 2; I48.91 Unspecified atrial fibrillation; E66.01 Morbid (severe) obesity due to excess calories; Z68.35 Body mass index [BMI] 35.0-35.9, adult; Z87.891 Personal history of nicotine dependence; Z79.82 Long term (current) use of aspirin; Z79.899 Other long term (current) drug therapy
CPT/HCPCS: 36415; 36430; 36558; 71045; 71250; 76775; 76937; 78580; 80048; 80053; 80061; 80076; 80202; 81001; 82040; 82272; 82728; 82803; 82947; 83036; 83540; 83605; 83615; 83735; 83880; 84100; 84145; 84156; 84300; 84443; 84484; 85007; 85014; 85018; 85025; 85027; 85379; 85610; 85652; 85730; 86140; 86850; 86900; 86901; 86923; 87040; 87070; 87077; 87086; 87147; 87186; 87205; 87635; 92526; 92610; 93005; 93306; 93308; 94002; 94003; 94640; 94660; 96361; 96372; 96374; 96375; 96376; 97110; 97163; 97167; 97530; 99152; 99153; 99285; 99291; A9540; C1751; C1758; C1769; J0171; J0282; J0456; J0690; J0696; J0878; J1100; J1160; J1170; J1205; J1642; J1650; J1940; J1956; J2060; J2250; J2270; J2370; J2405; J2930; J3010; J3370; J3475; P9016; P9047; Q9967